=== PATIENT | male | born 2000 | race Caucasian/White ===

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

== ENCOUNTER 2022-02-13 14:44 | Emergency (ER) | payer OTHER ==
--- OUTSIDE RECORDS SUMMARY | 2022-02-13 14:47 | XMS REPORT | Continuity of Care Document ---
:2000 Author Organization [facility] t Address [address] [place] [address] Care Team Providers Name Role Phone Doctor Unassigned, Name Attending Clinician Unavailable Oxana PHD, N Attending Clinician Nixon PATEL Attending Clinician Unavailable TEDDY Attending Clinician Unavailable GEORGE Attending Clinician Unavailable Payers Payer Name Policy Type Policy Number Effective Date Expiration Date S ource Problems Condition Condition Condition Status Onset Resolution Last Treating Co mments Source Name Details Category Date Date Treatment Clinician Date Bipolar 1 Bipolar 1 Disease Active Uni vers disorder, disorder, - ity of mixed mixed 00:00: [place] anxiety-de anxiety-de 00 Me dical pression, pression, Bran ch moderate moderate Anxiety Anxiety Disease Active 2019- Univers 5-29 ity of 00:00: [place] 00 Medical Branch Underweigh Underweigh Disease Active 2017-09 U nivers t in t in 1-20 [place]y of childhood [place] with BMI < with BMI < 00 Me dical 5th 5th Branch percentile percentile Avoidant/r Avoidant/r Disease Active U nivers estrictive estrictive 7-23 it y of food food 00:00: [place] intake intake 00 Medical disorder disorder Branch Avoidant/r Avoidant/r Disease Active U nivers estrictive estrictive 7-23 it y of food food 00:00: [place] intake intake 00 Medical disorder disorder Branch Nicotine Nicotine Disease Active Unive rs abuse abuse 4-15 ity of 00:00: [place] 00 Medical Branch Marijuana Marijuana Disease Active Uni vers abuse, abuse, 4-15 [place] Attention Attention Disease Active 2006- Uni vers deficit deficit 1-19 [place]y of hyperactiv [place] Medical disorder disorder Branch (ADHD) (ADHD) Sensory Sensory Problem Active UT processing processing Ph ysici difficulty difficulty an s Academic/e Academic/e Problem Active U T ducational ducational Ph ysici problem problem ans ZANDER ZANDER Problem Active UT (generaliz (generaliz Ph ysici ed anxiety ed anxiety an s disorder) disorder) Marijuana Marijuana Problem Active UT abuse abuse Physici ans Polysubsta Polysubsta Problem Active U T nce abuse nce abuse Phys ici ans Restless Restless Problem Active UT leg leg Physici syndrome syndrome ans Major Major Problem Active UT depressive depressive Ph ysici disorder disorder ans with with current current active active episode, episode, unspecifie unspecifie d d depression depression episode episode severity, severity, unspecifie unspecifie d whether d whether recurrent recurrent Anxiety Anxiety Problem Active UT disorder, disorder, Phys ici unspecifie unspecifie an s d type d type Allergies, Adverse Reactions, Alerts Allergy Allergy Status Severity Reaction(s) Onset Inactive Treating Comm ents Source Name Type Date Date Clinician NO KNOWN Drug Active Univers ALLERGIE Class ity of S [facility] Social History Social Habit Start Date Stop Date Quantity Comments Source Sex Assigned At [facility] y of [facility] Tobacco use and 2019-08-18 2019-08-18 Never used Universit y of exposure 00:00:00 00:00:00 [facility] Cigarettes smoked 2019-08-18 2019-08-18 Univers ity of current (pack per 00:00:00 00:00:00 [facility] ) - Reported Branch Alcohol intake 2019-08-18 2019-08-18 Current University of 00:00:00 00:00:00 non-drinker of [facility] alcohol Branch (finding) History of tobacco 2018-07-08 Smoker Univer sity of use 00:00:00 [facility] Smoking Status Start Date Stop Date Source Never smoked tobacco [facility] Phys[facility] (finding) Former smoker 2019-08-18 00:00:00 2019-08-18 00:00:00 [facility] Medications Ordered Filled Start Stop Current Ordering Indication Dosage Frequency Signature Comments Components Source Medication Medication Date Date Medication? Clinician (SIG) Name Name SERTraline 2020-0 Yes 100mg Take 100 Un juan 100 mg 1-25 mg by ity of tablet 18:52: mouth [place] 12 daily. Medical Prescribed Branch by [facility] - Apr 2019 SERTraline 2020-0 Yes 100mg Take 100 Un juan 100 mg 1-25 mg by ity of tablet 18:52: mouth [place] 12 daily. Medical Prescribed Branch by [facility] - Apr 2019 SERTraline 2020-0 Yes 100mg Take 100 Un juan 100 mg 1-25 mg by ity of tablet 18:52: mouth [place] 12 daily. Medical Prescribed Branch by [facility] Apr 2019 olanzapine 2020-0 Yes Take by Uni vers (ZYPREXA 1-25 mouth 2 ity of ORAL) 18:52: (two) [place] 09 times Medical daily. Branch Prescribed by [facility] Apr 2019 olanzapine 2020-0 Yes Take by Uni vers (ZYPREXA 1-25 mouth 2 ity of ORAL) 18:52: (two) [place] 09 times Medical daily. Branch Prescribed by [facility] Apr 2019 olanzapine 2020-0 Yes Take by Uni vers (ZYPREXA 1-25 mouth 2 ity of ORAL) 18:52: (two) [place] 09 times Medical daily. Branch Prescribed by [facility] Apr 2019 gabapentin 2020-0 Yes Take by Uni vers 300 mg/6 mL 1-25 mouth 2 ity o f (6 mL) 18:52: (two) [place] solution 07 times Medical daily. Branch prescribed at [facility] no summer 2018 gabapentin 2020-0 Yes Take by Uni vers 300 mg/6 mL 1-25 mouth 2 ity o f (6 mL) 18:52: (two) [place] solution 07 times Medical daily. Branch prescribed at [facility] no summer 2018 gabapentin 2020-0 Yes Take by Uni vers 300 mg/6 mL 1-25 mouth 2 ity o f (6 mL) 18:52: (two) [place] solution 07 times Medical daily. Branch prescribed at [facility] no summer 2018 OXcarbazepi 2020-0 Yes 600mg [...] Medical tablet times Branch daily. Sertraline Sertraline Yes JAZMYN TEDDY Take 25 mg UT HCl - 50 MG HCl - 50 MG 1-23 M.D. po daily x Physici Oral Tablet Oral Tablet 00:00: 15 days ans 00 and then increase it to 50 mg po daily Sertraline Sertraline 2018-09 Yes JAZMYN TEDDY 1 QD TAKE ONE UT HCl - 100 HCl - 100 0-23 M.D. (1) Physi ci MG Oral MG Oral 00:00: TABLET(S) an s Tablet Tablet 00 BY MOUTH ONCE A DAY. OLANZapine OLANZapine 2018-09 Yes JAZMYN TEDDY 1 TAKE 1 UT 10 MG Oral 10 MG Oral 0-23 M.D. TABLET AT Physici Tablet Tablet 00:00: BEDTIME. ans 00 Gabapentin Gabapentin 2018- Yes JAZMYN TEDDY Q0.3333D TAKE 1 UT 300 MG Oral 300 MG Oral 0-23 M.D. CAPSULE 3 Physici Capsule Capsule 00:00: TIMES ans 00 DAILY. OXcarbazepi OXcarbazepi Yes JAZMYN TEDDY Q0.5D TAKE ON E UT ne 300 MG ne 300 MG 9-16 M.D. (1) Physi ci Oral Tablet Oral Tablet 00:00: TABLET(S) ans 00 BY MOUTH TWICE A DAY. busPIRone 2018- Yes [id number] 15mg Take 1 Un juan 15 mg 6-06 tablet by ity of tablet 00:00: mouth 2 [place] 00 (two) Medical times Branch daily. DULoxetine 2018- Yes [id number] 60mg Take 1 U nivers 60 mg 6-04 capsule by ity of capsule 00:00: mouth [place] 00 daily. Medical Branch DULoxetine 2019- Yes [id number] 30mg Take 1 U nivers 30 mg 6-04 capsule by ity of capsule 00:00: mouth [place] 00 daily. Medical Branch OXcarbazepi 2018- Yes 600mg Take 600 U nivers ne 5-29 mg by ity of (TRILEPTAL) 19:48: mouth 2 Sathya as 600 mg 44 (two) Medical tablet times Branch daily. traZODONE Yes [id number] 25mg Take 0.5 Univers 50 mg 5-29 tablets by ity of tablet 00:00: mouth 2 [place] 00 (two) Medical times Branch daily. Multi-Vitam Multi-Vitam Yes M.A. U T in TABS in TABS Physici ans Immunizations Ordered Immunization Filled Immunization Date Status Commen ts Source Name Name Gardasil 9 2018-05-25 Completed [facility] Intramuscular 00:00:00 Suspension Meningococcal, MCV4, 2018-05-25 Completed [facility] unspecified conjugate 00:00:00 formulation(groups A, C, Y and W-135) Boostrix 5-2.5-18.5 2018-05-21 Completed [facility] Intramuscular 00:00:00 Suspension influenza virus 2017-09-03 Completed [facility] ians vaccine, unspecified 00:00:00 formulation influenza virus 2016-07-01 Completed [facility] ians vaccine, unspecified 00:00:00 formulation FluMist Quadrivalent 2015-08-06 Completed [facility] Nasal Suspension 00:00:00 Boostrix 5-2.5-18.5 2014-12-28 Completed [facility] Intramuscular 00:00:00 Suspension Meningococcal, MCV4, 2014-12-28 Completed [facility] unspecified conjugate 00:00:00 formulation(groups A, C, Y and W-135) influenza virus 2014-06-23 Completed [facility] vaccine, unspecified 00:00:00 formulation Gardasil 2014-05-25 Completed [facility] Intramuscular 00:00:00 Suspension Boostrix 5-2.5-18.5 2014-05-25 Completed [facility] Intramuscular 00:00:00 Suspension Meningococcal, MCV4, 2014-05-25 Completed [facility] unspecified conjugate 00:00:00 formulation(groups A, C, Y and W-135) Tdap 2014-05-25 Completed University of 00:00:00 [facility] Meningococcal 2014-05-25 Completed University of Polysaccharide 00:00:00 [place] Medi patrick (groups A, C, Y and Branc h W-135) conjugate vaccine (MCV4P) HPV 2014-05-25 Completed University of 00:00:00 [facility] Branch Tdap 2014-05-25 Completed University of 00:00:00 [facility] Meningococcal 2014-05-25 Completed University of Polysaccharide 00:00:00 [place] Medi patrick (groups A, C, Y and Branc h W-135) conjugate vaccine (MCV4P) HPV 2014-05-25 Completed University of 00:00:00 [facility] Tdap 2014-05-25 Completed University of 00:00:00 [facility] Meningococcal 2014-05-25 Completed University of Polysaccharide 00:00:00 [place] Medi patrick (groups A, C, Y and Branc h W-135) conjugate vaccine (MCV4P) HPV 2014-05-25 Completed University of 00:00:00 [facility] TDAP 2014-05-25 Completed University of 00:00:00 [facility] Meningococcal 2014-05-25 Completed University of Polysaccharide 00:00:00 [place] Medi patrick (groups A, C, Y and Branc h W-135) conjugate vaccine (MCV4P) HPV 2014-05-25 Completed University of 00:00:00 [facility] influenza virus 2009-08-09 Completed [facility] ians vaccine, unspecified 00:00:00 formulation H1n1 Vaccine 2009-08-09 Completed University o f 00:00:00 [facility] Influenza Virus 2009-08-09 Completed Universit y of Vaccine 00:00:00 [facility] H1n1 Vaccine 2009-08-09 Completed University o f 00:00:00 [facility] Influenza Virus 2009-08-09 Completed Universit y of Vaccine 00:00:00 [facility] H1n1 Vaccine 2009-08-09 Completed University o f 00:00:00 [facility] Influenza Virus 2009-08-09 Completed Universit y of Vaccine 00:00:00 [facility] H1n1 Vaccine 2009-08-09 Completed University o f 00:00:00 [facility] Influenza Virus 2009-08-09 Completed Universit y of Vaccine 00:00:00 [facility] influenza virus 2009-07-04 Completed [facility] vaccine, unspecified 00:00:00 formulation Influenza Virus 2009-07-04 Completed Universit y of Vaccine 00:00:00 [facility] Influenza Virus 2009-07-04 Completed Universit y of Vaccine 00:00:00 [facility] Influenza Virus 2009-07-04 Completed Universit y of Vaccine 00:00:00 [facility] Influenza Virus 2009-07-04 Completed Universit y of Vaccine 00:00:00 [facility] hepatitis A vaccine, 2007-11-17 Completed [facility] pediatric/adolescent 00:00:00 dosage, 2 dose schedule Ipol Injection 2007-04-29 Completed [facility] ans Injectable 00:00:00 DTaP, unspecified 2007-04-29 Completed [facility] formulation 00:00:00 ProQuad Subcutaneous 2007-04-29 Completed [facility] Injectable 00:00:00 hepatitis A vaccine, 2007-04-29 Completed [facility] pediatric/adolescent 00:00:00 dosage, 2 dose schedule DTaP, unspecified 2003-11-03 Completed [facility] formulation 00:00:00 Hib, Haemophilus 2003-11-03 Completed [facility] influenzae type b 00:00:00 vaccine, PRP-T conjugate Pneumo (Prevnar 7) 2003-11-03 Completed [facility] 00:00:00 M-M-R II Subcutaneous 2003-11-03 Completed [facility] Injectable 00:00:00 Varivax 1350 2003-11-03 Completed [facility] s PFU/0.5ML 00:00:00 Subcutaneous Injectable Hepatitis B, 2003-07-12 Completed [facility] pediatric/adolescent 00:00:00 dosage Ipol Injection 2003-07-12 Completed [facility] ans Injectable 00:00:00 Pneumo (Prevnar 7) 2003-07-12 Completed [facility] 00:00:00 DTaP, unspecified 2003-04-12 Completed [facility] formulation 00:00:00 Hib, Haemophilus 2003-04-12 Completed [facility] influenzae type b 00:00:00 vaccine, PRP-T conjugate Pneumo (Prevnar 7) 2003-04-12 Completed [facility] 00:00:00 Ipol Injection 2003-02-07 Completed [facility] ans Injectable 00:00:00 DTaP, unspecified 2003-02-07 Completed [facility] formulation 00:00:00 Hib, Haemophilus 2003-02-07 Completed [facility] influenzae type b 00:00:00 vaccine, PRP-T conjugate Hepatitis B, 2002 Completed [facility] pediatric/adolescent 00:00:00 dosage Ipol Injection 2002 Completed [facility] ans Injectable 00:00:00 DTaP, unspecified 2002 Completed [facility] formulation 00:00:00 Hib, Haemophilus 2002 Completed [facility] influenzae type b 00:00:00 vaccine, PRP-T conjugate Pneumo (Prevnar 7) 2002 Completed [facility] 00:00:00 Hepatitis B, 2002 Completed [facility] pediatric/adolescent 00:00:00 dosage Vital Signs Vital Name Observation Time Observation Value Comments Source BP Systolic 2019-10-20 12:54:00 118 mm[Hg] Location: RUE; [facility] Position: Sitting BP Diastolic 2019-10-20 12:54:00 53 mm[Hg] Location: RUE; [facility] Position: Sitting Height 2019-10-20 12:54:00 169 cm [facility] Weight 2019-10-20 12:54:00 125 [lb_av] [facility] Body Mass Index 2019-10-20 12:54:00 19.85 kg/m2 [facility] Calculated Heart Rate 2019-10-20 12:54:00 100 /min [facility] BP Systolic 2019-07-20 13:06:00 93 mm[Hg] Location: LUE; [facility] Position: Sitting BP Diastolic 2019-07-20 13:06:00 58 mm[Hg] Location: LUE; [facility] Position: Sitting Height 2019-07-20 13:06:00 66 [in_us] [facility] Weight 2019-07-20 13:06:00 132.375 [lb_av] [facility] Body Mass Index 2019-07-20 13:06:00 21.37 kg/m2 [facility] Calculated Temperature 2019-07-20 13:06:00 98.5 [degF] Method: Oral [facility] Heart Rate 2019-07-20 13:06:00 79 /min Location: L [facility] Brachial Artery; BP Systolic 2019-02-24 10:04:00 100 mm[Hg] Location: LUE; [place] [facility] Position: Sitting BP Diastolic 2019-02-24 10:04:00 61 mm[Hg] Location: LUE; [place] [facility] Position: Sitting Height 2019-02-24 10:04:00 167.5 cm [facility] Weight 2019-02-24 10:04:00 101 [lb_av] [facility] Body Mass Index 2019-02-24 10:04:00 16.33 kg/m2 [facility] Calculated Temperature 2019-02-24 10:04:00 98.4 [degF] Method: [facility] Tympanic Heart Rate 2019-02-24 10:04:00 62 /min Quality: Normal [facility] Respiration Rate 2019-02-24 10:04:00 18 /min Quality: Normal [facility] O2 SAT 2019-02-24 10:04:00 100 % Source: RA [facility] BP Systolic 2019-02-07 10:53:00 103 mm[Hg] [facility] BP Diastolic 2019-02-07 10:53:00 63 mm[Hg] [facility] Height 2019-02-07 10:53:00 167.5 cm [facility] Weight 2019-02-07 10:53:00 44.8 kg [facility] Body Mass Index 2019-02-07 10:53:00 15.97 kg/m2 [facility] Calculated Heart Rate 2019-02-07 10:53:00 63 /min [facility] Temperature 2019-02-07 10:53:00 98 [degF] [facility] Procedures Procedure Date / Time Performing Clinician Source Performed AUTHORIZATION FOR 2020-08-21 06:01:00 Doctor Unassigned, No [facility] RELEASE OF PHI Name Medical Branch [QLH] CBC (INCLUDES 2019-10-20 00:00:00 [facility] DIFF/PLT) [QL] CMP W/EGFR 2019-10-20 00:00:00 [facility] [QLH] LIPID PANEL 2019-10-20 00:00:00 [facility] ans [QLH] TSH, 3RD 2019-10-20 00:00:00 [facility] GENERATION [QH] DRUG 2019-07-20 00:00:00 [place] [facility] SCREEN,COMPREHENSIVE (URINE) [QH] DRUG 2019-02-24 00:00:00 [place] [facility] SCREEN,COMPREHENSIVE (URINE) Encounters Start End Encounter Admission Attending Care Care Encounter Source Date/Time Date/Time Type Type Clinicians Facility Department ID 2020-08-21 2020-08-21 Orders Doctor BRITTNEE [id number] 00:00:00 00:00:00 Only Unassigned, FRANCA [id number] [facility] [id number] 2020-08-21 2020-08-21 Orders Doctor BRITTNEE [id number] [facility] 00:00:00 00:00:00 Only Unassigned, FRANCA [id number] ity of [facility] [id number] Sathya as [id number] [address] 2019-12-08 2019-12-08 Office [facility] [id number] [facility] 13:05:19 14:05:19 Visit [place] [facility] [id number] ity of [id number] [place] [id number] [address] 2019-12-08 2019-12-08 Office [facility] [id number] 13:05:19 14:05:19 Visit [place] SPECIALTY [id number] [place] [id number] [place] [id number] [facility] 2019-12-08 2019-12-08 Outpatient R [facility] [id number] [facility] 13:15:00 13:15:00 LUDA rojas o f [facility] 2019-10-20 2019-10-20 Appointmen CHAR ESPINAL Multispecia [id number] [place] 13:00:00 13:00:00 t; JAZMYN ESPINAL M.D. lty - P zuleima ELDRIDGE M.D. Pamela ans 2019-07-20 2019-07-20 Appointmen CHAR ESPINAL Psychiatry [id number] [place] 13:00:00 13:00:00 t; JAZMYN ESPINAL M.D. Outpatient Jaye ELDRIDGE M.D. Clinic - ans [facility] 2019-06-08 2019-06-08 Telephone Ox[place] [facility] [id number] [facility] 00:00:00 00:00:00 [place] N SPECIALTY [id number] ity of [place] [id number] Lisa chase [place] [id number] [facility] [address] Branch 2019-02-24 2019-02-24 Appointmen CHAR ESPINAL Pamela [id number] [place] 10:00:00 10:00:00 t; JAZMYN ESPINAL M.D. [facility] zuleima ELDRIDGE M.D. [facility] 2019-02-07 2019-02-07 Appointmen CHAR VAZQUEZ Multispecia [id number] [place] 10:20:00 10:20:00 t; milton FLETCHER - CHANCE Chirinos APRN, APRN Results Test Description Test Time Test Comments [...] Propoxyphene Screen (test Negative Negative code = 34539-7) Urine Drug Screen Note (test code See [...] 300 ng/mLUrin e alcohol 20 mg/ dL [facility][H] Drug Screen Urine (9 Drugs)2019-02-24 13:44:01 [...] Propoxyphene Negative Negative Screen (test code = 10856-0) Urine Drug Screen Note See Note Drugs reported as (test code = Urine Drug posi tive have not been Screen Note) confirmed by a secondmethod an d should be used for medical purpose s only. To orderconfirm ation, contact laboratory.no te: Below are cut-o ff concentrations for all urine drugs marino glover performed in [facility]. Uzair e drugs listed in the t ablemay not be included in this panel.Desc ription C ut-off concentration-- ------- ------- ----Amp hetamine 1000 ng/mLBarbiturat es 200 ng/mLBenzodiaze pines 200 ng/mLCocaine metabolites 300 ng/mLOpiate s 300 ng/mLPhencyclid ine 25 ng/mLPropoxyphe ne 300 ng/mLMarijuana metabolites 50 ng/mLMethado ne 300 ng/mLUrine alco hol 20 mg/dL [facility]
--- NOTE | 2022-02-13 15:05 | EDPHYS ---
Physician Documentation [facility] Name: Chan Gale Age: 21 yrs Sex: Male : 2000 Arrival Date: 02/13/2022 Time: 14:45 Bed 15 Private MD: ED Physician William Espinosa HPI: 02/13 15:02 According to EMS patient was found unresponsive on the side of the road.. jmm Historical: - Allergies: 14:51 No Known Allergies; bp - Home Meds: 14:51 Trileptal Oral [Active]; olanzapine Oral [Active]; gabapentin Oral [Active]; Lexapro bp Oral [Active]; - PMHx: 14:51 Anxiety; Bipolar disorder; Depression; bp - Immunization history:: Adult Immunizations up to date. - Social history:: Smoking status: unknown. ROS: 15:02 Unable to obtain ROS due to patient being uncooperative. jmm Exam: 15:02 Constitutional: This is a well developed, well nourished patient who is awake, alert, jmm and in no acute distress. Head/Face: atraumatic. Eyes: EOMI, no conjunctival erythema appreciated ENT: Moist Mucus Membranes Neck: Trachea midline, Supple Chest/axilla: Normal chest wall appearance and motion. Cardiovascular: Regular rate and rhythm. No edema appreciated Respiratory: Normal respirations, no respiratory distress appreciated Abdomen/GI: Non distended, soft Back: Normal ROM Skin: General appearance color normal MS/ Extremity: Moves all extremities, no obvious deformities appreciated, no edema noted to the lower extremities Neuro: Awake and alert Psych: Behavior is normal, Mood is normal, Patient is cooperative and pleasant Vital Signs: 14:50 BP 111 / 62; Pulse 100; Resp 16; Temp 98; Pulse Ox 99% ; bp MDM: 15:01 Patient medically screened. [facility] 15:02 Data reviewed: vital signs, nurses notes. [facility] 15:02 Counseling: I had a detailed discussion with the patient and/or guardian regarding:. ED jmm course: Patient eloped from the ED prior to full evaluation. 15:04 Patient medically screened. jasmeet Administered Medications: No medications were administered Disposition Summary: 02/13/22 15:05 Eloped Disposition: after being seen by provider ron Reason: unknown jmm Condition: Stable jmm Diagnosis - Person with feared health complaint in whom no diagnosis is made ron Followup: ron - With: Private Physician - When: As needed - Reason: Recheck today's complaints, Continuance of care, Re-evaluation by your physician Signatures: William Espinosa MD MD cha Mickail, Joel, PA PA jmm Peltier, Brian, RN RN bp
--- NOTE | 2022-02-13 15:05 | ER ---
Nurse's Notes [facility] [place] Name: Chan Gale Age: 21 yrs Sex: Male : 2000 Arrival Date: 02/13/2022 Time: 14:45 Bed 15 Private MD: Diagnosis: Person with feared health complaint in whom no diagnosis is made Presentation: 02/13 14:50 Chief complaint: EMS states: FOUND DOWN BY STREET. Coronavirus screen: At this time, bp the client does not indicate any symptoms associated with coronavirus-19. Ebola Screen: No symptoms or risks identified at this time. Initial Sepsis Screen: Does the patient meet any 2 criteria? HR > 90 bpm. No. Patient's initial sepsis screen is negative. Does the patient have a suspected source of infection? No. Patient's initial sepsis screen is negative. Risk Assessment: Do you want to hurt yourself or someone else? Patient reports no desire to harm self or others. Onset of symptoms is unknown. Care prior to arrival: IV initiated. 18 GA, in the right forearm. 14:50 Method Of Arrival: EMS: [facility] bp 14:50 Acuity: SIRISHA 3 bp Triage Assessment: 14:51 General: Appears in no apparent distress. comfortable, Behavior is cooperative, bp appropriate for age, anxious. Pain: Denies pain. EENT: No deficits noted. Neuro: Level of Consciousness is awake, alert, obeys commands, Oriented to Appropriate for age Gait is steady, Speech is normal. Cardiovascular: No deficits noted. Respiratory: No deficits noted. GI: No signs and/or symptoms were reported involving the gastrointestinal system. : No signs and/or symptoms were reported regarding the genitourinary system. Derm: No deficits noted. Musculoskeletal: No deficits noted. Historical: - Allergies: 14:51 No Known Allergies; bp - Home Meds: 14:51 Trileptal Oral [Active]; olanzapine Oral [Active]; gabapentin Oral [Active]; Lexapro bp Oral [Active]; - PMHx: 14:51 Anxiety; Bipolar disorder; Depression; bp - Immunization history:: Adult Immunizations up to date. - Social history:: Smoking status: unknown. Screenin:53 Abuse screen: Denies threats or abuse. Denies injuries from another. Nutritional bp screening: No deficits noted. Tuberculosis screening: No symptoms or risk factors identified. Fall Risk None identified. Assessment: 14:53 General: PT REFUSING MEDICAL CARE. AOx4, AMBULATORY WITH STEADY GAIT. PT ADVISED TO bp REMAIN FOR TREATMENT BUT REFUSED. Vital Signs: 14:50 BP 111 / 62; Pulse 100; Resp 16; Temp 98; Pulse Ox 99% ; bp ED Course: 14:45 Patient arrived in ED. ap3 14:47 Timur Kraus PA [facility] 14:47 William Espinosa MD is Attending Physician. [facility] 14:48 Jamie Santana, RN is Primary Nurse. bp 14:51 Triage completed. bp 14:51 Arm band placed on. bp 14:53 Patient has correct armband on for positive identification. Bed in low position. Call bp light in reach. Side rails up X2. 14:53 No provider procedures requiring assistance completed. IV discontinued. bp Administered Medications: No medications were administered Medication: 14:53 VIS not applicable for this client. bp Outcome: 14:53 AMA Left before signing form. bp 14:53 Condition: stable 15:05 Patient left the ED. ap3 Signatures: Timur Kraus PA PA jmm Peltier, Brian, RN RN bp Mayra Trevino RN RN ap3
[2022-02-13 15:10] VITALS: BP 111/62; TEMP 98; O2SAT 99
== END 2022-02-13 15:05 | disposition left against medical advice (07) ==
LOC: ER 14:44
DX: Z71.1 Person with feared health complaint in whom no diagnosis is made (principal); F31.9 Bipolar disorder, unspecified
CPT/HCPCS: 99282

== ENCOUNTER 2022-06-10 23:26 | Emergency (ER) | payer OTHER ==
--- OUTSIDE RECORDS SUMMARY | 2022-06-10 23:29 | XMS REPORT | Continuity of Care Document ---
:2000 Author Organization [facility] t Address [address] [place] [address] Care Team Providers Name Role Phone Doctor Unassigned, [place] Attending Clinician Unavailable Kim Patel PHD Attending Clinician KIM PATEL Attending Clinician Unavailable JAZMYN ESPINAL M.D. 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 U nivers t in t in -20 [place]y of [place] disorder disorder Branch Nicotine Nicotine Disease Active 2018-0 Unive rs abuse abuse 4-15 ity of 00:00: [address] Marijuana Marijuana Disease Active Uni vers abuse, [...] Active Univers ALLERGIE Class ity of [facility] Social History Social Habit Start Date Stop Date Quantity Comments Source Sex Assigned At Universit y of [facility] Tobacco use and 2019-08-18 2019-08-18 Never used Universit y of exposure 00:00:00 00:00:00 [facility] Cigarettes smoked 2019-08-18 2019-08-18 Univers ity of current (pack per 00:00:00 00:00:00 [facility] ) - Reported Branch Alcohol intake 2019-08-18 2019-08-18 Current University of 00:00:00 00:00:00 non-drinker of [facility] alcohol Branch (finding) History of tobacco 2018-07-08 Smoker Univer sity of use 00:00:00 [facility] Smoking Status Start Date Stop Date Source Never smoked tobacco [facility] (finding) Former smoker 2019-08-18 00:00:00 2019-08-18 00:00:00 [facility] Medical Branch Medications Ordered Filled Start Stop Current Ordering Indication Dosage Frequency Signature Comments Components Source Medication Medication Date Date Medication? Clinician (SIG) Name Name SERTraline 2020-0 Yes 100mg Take 100 Un juan 100 mg 1-25 mg by ity of tablet 18:52: mouth [place] 12 daily. Medical Prescribed Branch by [facility] Apr 2019 SERTraline 2020-0 Yes 100mg Take 100 Un juan 100 mg 1-25 mg by ity of tablet 18:52: mouth [place] 12 daily. Medical Prescribed Branch by [facility] Apr 2019 SERTraline 2020-0 Yes 100mg Take 100 Un juan 100 mg 1-25 mg by ity of tablet 18:52: mouth [place] 12 daily. Medical Prescribed Branch by [facility] Apr 2019 olanzapine 2020-0 Yes Take by [facility] (ZYPREXA 1-25 mouth 2 ity of ORAL) 18:52: (two) [place] 09 times Medical daily. Branch Prescribed by [facility] Apr 2019 olanzapine 2020-0 Yes Take by [facility] (ZYPREXA 1-25 mouth 2 ity of ORAL) 18:52: (two) [place] 09 times Medical daily. Branch Prescribed by [facility] Apr 2019 olanzapine 2020-0 Yes Take by [facility] (ZYPREXA 1-25 mouth 2 ity of ORAL) 18:52: (two) [place] 09 times Medical daily. Branch Prescribed by [facility] Apr 2019 gabapentin 2020-0 Yes Take by [facility] 300 mg/6 mL 1-25 mouth 2 ity o f (6 mL) 18:52: (two) [place] solution 07 times Medical daily. Branch prescribed at [facility] no summer 2018 gabapentin 2020-0 Yes Take by [facility] 300 mg/6 mL 1-25 mouth 2 ity o f (6 mL) 18:52: (two) [place] solution 07 times Medical daily. Branch prescribed at [facility] summer gabapentin 2020-0 Yes Take by [facility] 300 mg/6 mL 1-25 mouth 2 ity o f (6 mL) 18:52: (two) [place] solution 07 times Medical daily. Branch prescribed at [facility] no summer 2018 OXcarbazepi 2020-0 Yes 600mg [...] 00:00: TIMES ans 00 DAILY. OXcarbazepi OXcarbazepi 2018- Yes JAZMYN TEDDY Q0.5D TAKE ON E [place] ne 300 MG ne 300 MG 9-16 M.D. (1) Physi ci Oral Tablet Oral Tablet 00:00: TABLET(S) ans 00 BY MOUTH TWICE A DAY. busPIRone 2018- Yes [id number] 15mg Take 1 Un juan 15 mg 6-06 tablet by ity of tablet 00:00: mouth 2 [place] 00 (two) Medical times Branch daily. DULoxetine Yes [id number] 60mg Take 1 U nivers 60 mg 6-04 capsule by ity of capsule 00:00: mouth [place] 00 daily. Medical Branch DULoxetine 2018- Yes [id number] 30mg Take 1 U nivers 30 mg 6-04 capsule by ity of capsule 00:00: mouth [place] 00 daily. Medical Branch OXcarbazepi 2018- Yes 600mg Take 600 U nivers ne 5-29 mg by ity of (TRILEPTAL) 19:48: mouth 2 Sathya as 600 mg 44 (two) Medical tablet times Branch daily. traZODONE Yes [id number] 25mg Take 0.5 Univers 50 mg 5-29 [...] W-135) Tdap 2014-05-25 Completed University of 00:00:00 [facility] Meningococcal 2014-05-25 Completed University of Polysaccharide 00:00:00 [place] Medi patrick (groups A, C, Y and Branc h W-135) conjugate vaccine (MCV4P) HPV 2014-05-25 Completed University of 00:00:00 [facility] Tdap 2014-05-25 Completed University of 00:00:00 [facility] Meningococcal 2014-05-25 Completed University of Polysaccharide 00:00:00 [place] Medi patrick (groups A, C, Y and Branc h W-135) conjugate vaccine (MCV4P) HPV 2014-05-25 Completed University of 00:00:00 [facility] Tdap 2014-05-25 Completed University of 00:00:00 [facility] Meningococcal 2014-05-25 Completed University of Polysaccharide 00:00:00 [place] Medi patrick (groups A, C, Y and Branc h W-135) conjugate vaccine (MCV4P) HPV 2014-05-25 Completed University of 00:00:00 [facility] TDAP 2014-05-25 Completed University of 00:00:00 [facility] Meningococcal 2014-05-25 Completed University of Polysaccharide 00:00:00 [place] Medi patrick (groups A, C, Y and Branc h W-135) conjugate vaccine (MCV4P) HPV 2014-05-25 Completed University of 00:00:00 [facility] influenza virus 2009-08-09 Completed [facility] vaccine, unspecified 00:00:00 formulation H1n1 Vaccine 2009-08-09 Completed University o f 00:00:00 [facility] Influenza Virus 2009-08-09 Completed Universit y of Vaccine 00:00:00 [facility] H1n1 Vaccine 2009-08-09 Completed University o f 00:00:00 [facility] Influenza Virus 2009-08-09 Completed Universit y of Vaccine 00:00:00 [facility] H1n1 Vaccine 2009-08-09 Completed University o f 00:00:00 [facility] Influenza Virus 2009-08-09 Completed Universit y of Vaccine 00:00:00 [facility] H1n1 Vaccine 2009-08-09 Completed University o f 00:00:00 [facility] Influenza Virus 2009-08-09 Completed Universit y of Vaccine 00:00:00 [facility] influenza virus 2009-07-04 Completed [facility] vaccine, unspecified 00:00:00 formulation Influenza Virus 2009-07-04 Completed Universit y of Vaccine 00:00:00 [facility] Influenza Virus 2009-07-04 Completed Universit y of Vaccine 00:00:00 [facility] Influenza Virus 2009-07-04 Completed Universit y of Vaccine 00:00:00 [facility] Influenza Virus 2009-07-04 Completed Universit y of Vaccine 00:00:00 [facility] hepatitis A vaccine, 2007-11-17 Completed [...] Systolic 2019-10-20 12:54:00 118 mm[Hg] Location: RUE; [facility] Position: Sitting BP Diastolic 2019-10-20 12:54:00 53 mm[Hg] Location: RUE; [facility] Position: Sitting Height 2019-10-20 12:54:00 169 cm [facility] Weight 2019-10-20 12:54:00 125 [lb_av] [facility] Body Mass Index 2019-10-20 12:54:00 19.85 kg/m2 [facility] Calculated Heart Rate 2019-10-20 12:54:00 100 /min [facility] BP Systolic 2019-07-20 13:06:00 93 mm[Hg] Location: LUE; [facility] Position: Sitting BP Diastolic 2019-07-20 13:06:00 58 mm[Hg] Location: LUE; [facility] Position: Sitting Height 2019-07-20 13:06:00 66 [in_us] [facility] Weight 2019-07-20 13:06:00 132.375 [lb_av] [facility] Body Mass Index 2019-07-20 13:06:00 21.37 kg/m2 [facility] Calculated Temperature 2019-07-20 13:06:00 98.5 [degF] Method: Oral [facility] Heart Rate 2019-07-20 13:06:00 79 /min Location: L [facility] Brachial Artery; BP Systolic 2019-02-24 10:04:00 100 mm[Hg] Location: LUE; [facility] Position: Sitting BP Diastolic 2019-02-24 10:04:00 61 mm[Hg] Location: LUE; [facility] Position: Sitting Height 2019-02-24 10:04:00 [...] FOR 2020-08-21 06:01:00 Doctor Unassigned, No Univ [facility] RELEASE OF PHI Name Medical Branch [QL] CBC (INCLUDES 2019-10-20 00:00:00 [facility] DIFF/PLT) [QL] CMP W/EGFR 2019-10-20 00:00:00 [facility]] LIPID PANEL 2019-10-20 00:00:00 [facility]] TSH, 3RD 2019-10-20 00:00:00 [facility] GENERATION [QH] DRUG 2019-07-20 00:00:00 [facility] SCREEN,COMPREHENSIVE (URINE) [Q] DRUG 2019-02-24 00:00:00 [facility] SCREEN,COMPREHENSIVE (URINE) Encounters Start End Encounter Admission Attending Care Care Encounter Source Date/Time Date/Time Type Type Clinicians Facility Department ID 2020-08-21 2020-08-21 Orders Doctor BRITTNEE [id number] 00:00:00 00:00:00 Only Unassigned, FRANCA [id number] Edisto [facility] [id number] 2020-08-21 2020-08-21 Orders Doctor BRITTNEE [id number] [facility] 00:00:00 00:00:00 Only Unassigned, FRANCA [id number] ity of Edisto [facility] [id number] Sathya as [id number] [address] 2019-12-08 2019-12-08 Office [facility] [id number] Univers 13:05:19 14:05:19 Visit [place] [facility] [id number] ity of [place] [id number] [place] [id number] [address] 2019-12-08 2019-12-08 Office [facility] [id number] 13:05:19 14:05:19 Visit [place] N SPECIALTY [id number] [place] [id number] [place] [id number] [facility] 2019-12-08 2019-12-08 [facility] [id number] [facility] 13:15:00 13:15:00 KIM maritns [facility] 2019-10-20 2019-10-20 Appointmen CHAR ESPINAL [facility] [id number] [place] 13:00:00 13:00:00 t; JAZMYN ESPINAL M.D. lty - P Sarah Chakrabortya ans 2019-07-20 2019-07-20 Appointmen CHAR ESPINAL Psychiatry [id number] [place] 13:00:00 13:00:00 t; JAZMYN ESPINAL M.D. Outpatient Jaye ELDRIDGE M.D. [facility] - ans [facility] 2019-06-08 2019-06-08 Telephone Oxana [facility] [id number] [facility] 00:00:00 00:00:00 Kim N SPECIALTY [id number] ity [facility] [id number] Lisa chase [place] [id number] [facility] 151 Branch 2019-02-24 2019-02-[facility] ESPINALa [id number] [place] 10:00:00 10:00:00 t; JAZMYN ESPINAL M.D. [facility] P zuleima ELDRIDGE M.D. [facility] 2019-02-07 2019-02-07 [facility] CHAR VAZQUEZ [facility] [id number] [place] 10:20:00 10:20:00 t; milton FLETCHER - CHANCE [...] Propoxyphene Screen (test Negative Negative code = 80714-2) Urine Drug Screen Note (test code See Note Drugs reported as positive have = Urine Drug Screen Note) no t been confirmed by a secondmethod an d should be used for medical pur poses only. To orderconfirmati on, contact laboratory.no te: Below are cut-off concent rations for all urine drugs ofa buse performed in the laboratory. Some drugs listed in the t ableksy not be included in thi s panel.Descripti on Cut-off concentration-- A mphetamine 100 0 ng/mLBarbiturat es 200 ng/mLBenzodiaze pines 200 ng/mLCocaine me tabolites 300 ng/mLOpiates 30 0 ng/mLPhencyclid ine 25 ng/mLPropoxyphe ne 300 ng/mLMarijuana metabolites 50 ng/mLMethadone 300 ng/mLUrine alcohol 20 mg/d L [facility][H] Drug Screen Urine (9 Drugs)2019-02-24 13:44:01 [...] Propoxyphene Negative Negative Screen (test code = 64140-0) Urine Drug Screen Note See Note Drugs reported as (test code = Urine Drug posi tive have not been Screen Note) confirmed by a secondmethod an d should be used for medical purpose s only. [facility], contact laboratory.no te: Below are cut-o ff concentrations for all urine drugs ofa buse [facility]. Uzair e drugs listed in the ableksy not be included in this panel.Desc ription Cut-off concentration-- ------- ------- ----Amp hetamine 1000 ng/mLBarbiturat es 200 ng/mLBenzodiaze pines 200 ng/mLCocain e metabolites 300 ng/mLOpiates 3 00 ng/mLPhencyclid ine 25 ng/mLPropoxyphe ne 300 ng/mLMarijuana metabolites 50 ng/mLMethadone 300 ng/mLUrine alco hol 20 mg/dL [facility]
[2022-06-11 00:12] LABS: Absolute Lymphocytes (CBC) 2.5 K/uL (0.7-4.9); Hematocrit 38.3 % (39.6-49.0); Lymphocytes % 45.8 % (15.3-44.8); MCV 86.7 fL (80-100); RBC Red Blood Cell Count 4.41 M/uL (4.33-5.43)
[2022-06-11 00:15] LABS: Protime INR 1.15
[2022-06-11 00:28] LABS: ALT/SGPT 29 U/L (12-78); AST/SGOT 17 U/L (15-37); Albumin 4.2 g/dL (3.4-5.0); Alkaline Phosphatase 105 U/L (45-117); BUN Blood Urea Nitrogen 5 mg/dL (7-18); Bicarbonate 26 mmol/L (21-32); Bilirubin Direct 0.2 mg/dL (0-0.2); Bilirubin Total 0.6 mg/dL (0.2-1.0); Creatine Phosphokinase 168 U/L (39-308); Glomerular Filtration Rate 109 ml/min (=/>90); Glucose Level 123 mg/dL (74-106); Potassium 3.5 mmol/L (3.5-5.1); Protein, Total 7.3 g/dL (6.4-8.2); Sodium Level 140 mmol/L (136-145)
--- NOTE | 2022-06-11 05:59 | EDPHYS ---
Physician Documentation [facility] Name: Chan Gale Age: 21 yrs Sex: Male : 2000 Arrival Date: 06/10/2022 Time: 23:30 Bed 6 Private MD: ED Physician Donta Alcantara HPI: 06/11 22:16 This 21 yrs old Male presents to ER via EMS with complaints of Drug Abuse. kdr 22:16 The patient presents with confusion, decreased mental status, decreased responsiveness, kdr disorientation, trouble concentrating. Onset: The symptoms/episode began/occurred gradually, today. Possible causes: The patient allegedly snorted an unknown number of gabapentin earlier today. It is unknown if he had any other ingestion. Associated signs and symptoms: The patient has no apparent associated signs or symptoms. Current symptoms: In the emergency department the patient's symptoms are unchanged from the initial presentation. Patient's baseline: Neuro: alert and fully oriented, Motor: no deficits. The patient has not experienced similar symptoms in the past. The patient has not recently seen a physician. Patient states that he was having a lot of discomfort in that he took some extra pills but he denies snorting any medications or drugs of any sort.. 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 - Social history:: Smoking status: Reported history of juuling and/or vaping. Patient/guardian denies using alcohol. ROS: 06/11 22:16 Constitutional: Negative for fever, chills, and weight loss, Eyes: Negative for injury, kdr pain, redness, and discharge, ENT: Negative for injury, pain, and discharge, Neck: Negative for injury, pain, and swelling, Cardiovascular: Negative for chest pain, palpitations, and edema, Respiratory: Negative for shortness of breath, cough, wheezing, and pleuritic chest pain, Abdomen/GI: Negative for abdominal pain, nausea, vomiting, diarrhea, and constipation, Back: Negative for injury and pain, : Negative for injury, bleeding, discharge, and swelling, MS/Extremity: Negative for injury and deformity, Skin: Negative for injury, rash, and discoloration, Allergy/Immunology: Negative for hives, rash, and allergies, Endocrine: Negative for neck swelling, polydipsia, polyuria, polyphagia, and marked weight changes, Hematologic/Lymphatic: Negative for swollen nodes, abnormal bleeding, and unusual bruising. Neuro: Positive for altered mental status, weakness, Negative for Psych: Positive for Negative for suicide gesture, suicidal ideation. Exam: 22:16 Constitutional: This is a well developed, well nourished patient who is awake, alert, kdr and in no acute distress. Head/Face: Normocephalic, atraumatic. Eyes: Pupils equal round and reactive to light, extra-ocular motions intact. Lids and lashes normal. Conjunctiva and sclera are non-icteric and not injected. Cornea within normal limits. Periorbital areas with no swelling, redness, or edema. Neck: Trachea midline, no thyromegaly or masses palpated, and no cervical lymphadenopathy. Supple, full range of motion without nuchal rigidity, or vertebral point tenderness. No Meningismus. Chest/axilla: Normal chest wall appearance and motion. Nontender with no deformity. No lesions are appreciated. Cardiovascular: Regular rate and rhythm with a normal S1 and S2. No gallops, murmurs, or rubs. Normal PMI, no JVD. No pulse deficits. Respiratory: Lungs have equal breath sounds bilaterally, clear to auscultation and percussion. No rales, rhonchi or wheezes noted. No increased work of breathing, no retractions or nasal flaring. Abdomen/GI: Soft, non-tender, with normal bowel sounds. No distension or tympany. No guarding or rebound. No evidence of tenderness throughout. Back: No spinal tenderness. No costovertebral tenderness. Full range of motion. Skin: Warm, dry with normal turgor. Normal color with no rashes, no lesions, and no evidence of cellulitis. MS/ Extremity: Pulses equal, no cyanosis. Neurovascular intact. Full, normal range of motion. 22:16 Neuro: Orientation: to person, place, Mentation: slow to respond, confused. Vital Signs: 06/10 23:30 BP 126 / 90; Pulse 73; Resp 17; Temp 97.6(O); Pulse Ox 98% on R/A; Weight 58.97 kg; ld1 Height 5 ft. 5 in. (165.10 cm); Pain 0/10; 06/11 01:30 BP 107 / 71; Pulse 71; Resp 15; Pulse Ox 100% on R/A; ll3 02:30 BP 128 / 88; Pulse 71; Resp 15; Pulse Ox 98% on R/A; ll3 03:15 BP 134 / 95; Pulse 56; Resp 14; Pulse Ox 96% on R/A; ll3 04:35 BP 122 / 87; Pulse 67; Pulse Ox 99% on R/A; aa9 05:15 BP 116 / 82; Pulse 51; Resp 15; Pulse Ox 96% on R/A; ll3 06/10 23:30 Body Mass Index 21.63 (58.97 kg, 165.10 cm) ld1 MDM: 05:59 Patient medically screened. kdr 22:16 Data reviewed: vital signs, nurses notes, lab test result(s). Counseling: I had a kdr detailed discussion with the patient and/or guardian regarding: the historical points, exam findings, and any diagnostic results supporting the discharge/admit diagnosis, lab results, the need for outpatient follow up. 06/10 23:44 Order name: Acetaminophen; Complete Time: 02:06/10 23:44 Order name: Basic Metabolic Panel; Complete Time: 02:06/10 23:44 Order name: CBC with Diff; Complete Time: 02:06/10 23:44 Order name: ETOH Level; Complete Time: 02:06/10 23:44 Order name: Hepatic Function; Complete Time: 02:06/10 23:44 Order name: PT-INR; Complete Time: 02:06/10 23:44 Order name: Ptt, Activated; Complete Time: 02:06/10 23:44 Order name: Salicylate; Complete Time: 02: 06/10 23:44 Order name: EKG; Complete Time: 23:46 06/10 23:44 Order name: EKG - Nurse/Tech; Complete Time: 23:48 06/10 23:44 Order name: IV Saline Lock; Complete Time: 23:54 06/10 23:44 Order name: Labs collected and sent; Complete Time: 23:54 3 06/10 23:44 Order name: CK; Complete Time: 02:11 3 06/10 23:44 Order name: Suicide Screening ([place]); Complete Time: 23:59 eh3 Administered Medications: No medications were administered Disposition Summary: 06/11/22 05:59 Discharge Ordered Location: Home kdr Problem: new kdr Symptoms: have improved kdr Condition: Stable kdr Diagnosis - Other psychoactive substance abuse kdr Followup: kdr - With: Private Physician - When: 2 - 3 days - Reason: If symptoms return, Further diagnostic work-up, Recheck today's complaints, Continuance of care, Re-evaluation by your physician Discharge Instructions: - Confusion kdr - Accidental Drug Poisoning, Adult kdr - Discharge Summary Sheet aa9 - Weakness kdr Forms: - Medication Reconciliation Form kdr - SBAR form aa9 - Thank You Letter kdr Signatures: Dispatcher [employer] EDDonta Chicas MD MD kdr Ngozi Hull RN RN 1 Mckayla Edmond RN RN 3 Corrections: (The following items were deleted from the chart) 06:07 06/10 23:44 Urine Dipstick-Ancillary ordered. 3 3
--- NOTE | 2022-06-11 05:59 | ER ---
Nurse's Notes [facility] Name: Chan Gale Age: 21 yrs Sex: Male : 2000 Arrival Date: 06/10/2022 Time: 23:30 Bed 6 Private MD: Diagnosis: Other psychoactive substance abuse Presentation: 06/10 23:30 Chief complaint: EMS states: toned out to pt home where pt was found in grass. Pt ld1 reports snorting 7-10 gabapentin (unknown). Pt prescribed 400mg capsules. Pt reports snapping them open and snorting them throughout day. Denies SI. Coronavirus screen: At this time, the client does not indicate any symptoms associated with coronavirus-19. Ebola Screen: No symptoms or risks identified at this time. Initial Sepsis Screen: Does the patient meet any 2 criteria? No. Patient's initial sepsis screen is negative. Does the patient have a suspected source of infection? No. Patient's initial sepsis screen is negative. Risk Assessment: Do you want to hurt yourself or someone else? Patient reports no desire to harm self or others. Onset of symptoms was June 10, 2022. 23:30 Method Of Arrival: EMS: [facility] ld1 23:30 Acuity: SIRISHA 3 ld1 Triage Assessment: 23:34 General: Appears in no apparent distress. comfortable, Behavior is calm, cooperative, ld1 drowsy. Pain: Denies pain. EENT: No signs and/or symptoms were reported regarding the EENT system. Neuro: Level of Consciousness is awake, alert, obeys commands, Oriented to person, place, time, situation. Cardiovascular: Capillary refill < 3 seconds Patient's skin is warm and dry. Rhythm is sinus rhythm. Respiratory: Airway is patent Respiratory effort is even, unlabored. GI: Abdomen is flat, non-distended. : No signs and/or symptoms were reported regarding the genitourinary system. Derm: No signs and/or symptoms reported regarding the dermatologic system. Musculoskeletal: No signs and/or symptoms reported regarding the musculoskeletal system. Historical: - Allergies: 23:34 No Known Allergies; ld1 - PMHx: 23:34 Anxiety; Bipolar disorder; Depression; ld1 23:34 avoident restrictive food intact disorder; ld1 - PSHx: 23:34 None; ld1 - Immunization history:: Adult Immunizations up to date, Client reports receiving the 2nd dose of the Covid vaccine. - Social history:: Smoking status: Reported history of juuling and/or vaping. Patient/guardian denies using alcohol. Screenin/14 05:58 Abuse screen: Denies threats or abuse. Denies injuries from another. Nutritional ll3 screening: No deficits noted. Tuberculosis screening: No symptoms or risk factors identified. Fall Risk None identified. Assessment: 06/10 23:42 Reassessment: Poison Control case # [id number]. Expect ataxia, sedation. Observe for a eh3 minimum of 6 hours. Intubate if needed and let him sleep it off. 06/11 03:24 Reassessment: No changes from previously documented assessment. Patient and/or family ll3 updated on plan of care and expected duration. Pain level reassessed. Pt is in bed sleeping with eyes closed, respirations are even and unlabored, chest rising and falling, no s/s of distress, call light within reach, mom at bedside. 04:34 Reassessment: Patient and/or family updated on plan of care and expected duration. Pain aa9 level reassessed. pt in bed, eyes closed, respirations even and unlabored, no s/s of distress, call light within reach, mom at bedside. 05:43 Reassessment: No changes from previously documented assessment. Patient and/or family as6 updated on plan of care and expected duration. Pain level reassessed. 05:59 Reassessment: Dr. Alcantara at bedside. ll3 Vital Signs: 06/10 23:30 BP 126 / 90; Pulse 73; Resp 17; Temp 97.6(O); Pulse Ox 98% on R/A; Weight 58.97 kg; ld1 Height 5 ft. 5 in. (165.10 cm); Pain 0/10; 06/11 01:30 BP 107 / 71; Pulse 71; Resp 15; Pulse Ox 100% on R/A; ll3 02:30 BP 128 / 88; Pulse 71; Resp 15; Pulse Ox 98% on R/A; ll3 03:15 BP 134 / 95; Pulse 56; Resp 14; Pulse Ox 96% on R/A; ll3 04:35 BP 122 / 87; Pulse 67; Pulse Ox 99% on R/A; aa9 05:15 BP 116 / 82; Pulse 51; Resp 15; Pulse Ox 96% on R/A; ll3 06/10 23:30 Body Mass Index 21.63 (58.97 kg, 165.10 cm) ld1 ED Course: 06/10 23:30 Patient arrived in ED. ld1 23:34 Triage completed. ld1 23:34 Arm band placed on right wrist. ld1 23:36 Mckayla Edmond, RN is Primary Nurse. 3 23:49 Donta Alcantara MD is Attending Physician. kdr 23:54 Inserted saline lock: 20 gauge in right antecubital area, using aseptic technique. Blood collected. 23:54 CBC with Diff Sent. zm 23:54 ETOH Level Sent. zm 23:54 Hepatic Function Sent. 23:54 PT-INR Sent. zm 23:54 Ptt, Activated Sent. zm 23:54 Salicylate Sent. zm 23:54 Basic Metabolic Panel Sent. zm 23:54 Acetaminophen Sent. 23:54 CK Sent. 06/11 05:58 Patient has correct armband on for positive identification. Bed in low position. Call ll3 light in reach. Side rails up X 1. Adult w/ patient. 05:58 No provider procedures requiring assistance completed. ll3 06:06 IV discontinued, intact, bleeding controlled, No redness/swelling at site. Pressure ll3 dressing applied. Administered Medications: No medications were administered Medication: 05:58 VIS not applicable for this client. ll3 Outcome: 05:59 Discharge ordered by . kdr 06:06 Discharged to home ambulatory, with family. ll3 06:06 Condition: stable 06:06 Discharge instructions given to patient, family, Instructed on discharge instructions, follow up and referral plans. Demonstrated understanding of instructions, follow-up care. 06:07 Patient left the ED. ll3 Signatures: Donta Alcantara MD MD [facility] Ngozi Hull RN RN ld1 Terence Santiago, JASON RN as6 Enrike Curtis RN RN 3 Mckayla Edmond, JASON GOMEZ 3 Lillie Cordova Reyna Chapman, JASON GOMEZ aa9
--- NOTE | 2022-06-11 17:08 | EKG ---
Test Date: 2022-06-10 Test Time: 23:41:40 Chemical Sales Representative: SANA MEASUREMENT RESULTS: Intervals: Rate: 67 MT: 148 QRSD: 108 QT: 416 QTc: 439 Comfort: P: 50 MT: 148 QRS: 97 T: 24 INTERPRETIVE STATEMENTS: Normal sinus rhythm Rightward axis Incomplete right bundle branch block Cannot rule out Inferior infarct, age undetermined Abnormal ECG Compared to ECG 04/15/2021 09:37:55 Right-axis deviation now present Incomplete right bundle-branch block now present Myocardial infarct finding now present Left-axis deviation no longer present Electronically Signed On 06-11-22 17:06:36 CDT by Nilesh Lara
[2022-06-11 20:11] VITALS: TEMP 97.6
[2022-06-11 20:46] VITALS: BP 116/82; O2SAT 96
== END 2022-06-11 06:07 | disposition home or self-care (01) ==
LOC: ER 23:26
DX: R41.82 Altered mental status, unspecified (principal); F19.10 Other psychoactive substance abuse, uncomplicated; R53.1 Weakness
CPT/HCPCS: 36415; 80048; 80076; 80320; 80329; 82550; 85025; 85610; 85730; 93005

== ENCOUNTER 2022-08-30 18:01 | Emergency (ER) | payer OTHER ==
[2022-08-30] MEDS ORDERED: NA CHLORIDE 0.9% 2,000 ML ONE (18:05)
--- OUTSIDE RECORDS SUMMARY | 2022-08-30 18:05 | XMS REPORT | Continuity of Care Document ---
:2000 Author Organization [facility] t Address [address] [place] [address] Care Team Providers Name Role Phone Doctor Unassigned, [place] Attending Clinician Unavailable Kim Patel PHD Attending [...] 1 Disease Active Uni vers disorder, disorder, 02-23 ity of mixed mixed 00:00: [place] anxiety-de anxiety-de 00 Me dical pression, pression, Bran ch moderate moderate Anxiety Anxiety Disease Active Univers - ity of 00:00: [place] 00 [...] rs abuse abuse 4-15 ity of 00:00: [address] Marijuana Marijuana Disease Active Uni vers [...] Active Univers ALLERGIE Class ity of S [facility] Social History Social Habit Start Date Stop Date Quantity Comments Source Sex Assigned At Universit y of [facility] Tobacco use and 2019-08-18 2019-08-18 Never used Universit y of exposure 00:00:00 00:00:00 [facility] Cigarettes smoked 2019-08-18 2019-08-18 Univers ity of current (pack per 00:00:00 00:00:00 [facility] ) - Reported Branch Alcohol intake 2019-08-18 2019-08-18 Current University of 00:00:00 00:00:00 non-drinker of [facility] alcohol Branch (finding) History of tobacco 2018-07-08 Smoker Univer sity of use 00:00:00 [facility] Smoking Status Start Date Stop Date Source Never smoked tobacco [facility] (finding) Former smoker 2019-08-18 00:00:00 2019-08-18 00:00:00 [facility] Medical Branch Medications Ordered Filled Start Stop Current Ordering Indication Dosage Frequency Signature Comments Components Source Medication Medication Date Date Medication? Clinician (SIG) Name Name SERTraline 2020-0 Yes 100mg Take 100 Un juan 100 mg 1-25 mg by ity of tablet 18:52: mouth [place] 12 daily. Medical Prescribed Branch by [facility] Apr 2019 SERTraline 2020-0 Yes 100mg Take 100 Un juan 100 mg 1-25 mg by ity of tablet 18:52: mouth [place] 12 daily. Medical Prescribed Branch by [facility] Apr 2019 SERTraline 2020-0 Yes 100mg Take 100 Un juan 100 mg 1-25 mg by ity of tablet 18:52: mouth [place] 12 daily. Medical Prescribed Branch by [facility] Apr 2019 olanzapine 2020-0 Yes Take by SocialF5 ers (ZYPREXA 1-25 mouth 2 ity of ORAL) 18:52: (two) [place] 09 times Medical daily. Branch Prescribed by [facility] Apr 2019 olanzapine 2020-0 Yes Take by SocialF5 ers (ZYPREXA 1-25 mouth 2 ity of ORAL) 18:52: (two) [place] 09 times Medical daily. Branch Prescribed by [facility] Apr 2019 olanzapine 2020-0 Yes Take by SocialF5 ers (ZYPREXA 1-25 mouth 2 ity of ORAL) 18:52: (two) [place] 09 times Medical daily. Branch Prescribed by [facility] Apr 2019 gabapentin 2020-0 Yes Take by SocialF5 ers 300 mg/6 mL 1-25 mouth 2 ity o f (6 mL) 18:52: (two) [place] solution 07 times Medical daily. Branch prescribed at [facility] no summer 2018 gabapentin 2020-0 Yes Take by SocialF5 ers 300 mg/6 mL 1-25 mouth 2 ity o f (6 mL) 18:52: (two) [place] solution 07 times Medical daily. Branch prescribed at [facility] summer gabapentin 2020-0 Yes Take by SocialF5 ers 300 mg/6 mL 1-25 mouth 2 ity o f (6 mL) 18:52: (two) [place] solution 07 times Medical daily. Branch prescribed at [facility] [place] no summer 2018 OXcarbazepi 2020-0 Yes 600mg [...] MOUTH TWICE A DAY. busPIRone 2018- Yes [id number] 15mg Take 1 Un juan 15 mg 6-06 tablet by ity of tablet 00:00: mouth 2 [place] 00 (two) Medical times Branch daily. DULoxetine Yes [id number] 60mg Take 1 U nivers 60 mg 6-04 capsule by ity of capsule 00:00: mouth [place] 00 daily. Medical Branch DULoxetine 2018- Yes [id number] 30mg Take 1 U nivers 30 mg 6-04 capsule by ity of capsule 00:00: mouth [place] 00 daily. Medical Branch OXcarbazepi 2018- Yes 600mg Take 600 U nivers ne 5-29 mg by ity of (TRILEPTAL) 19:48: mouth 2 Sathya as 600 mg 44 (two) Medical tablet times Branch daily. traZODONE Yes [id number] 25mg Take 0.5 Univers 50 mg 5-29 [...] W-135) Tdap 2014-05-25 Completed University of 00:00:00 [facility] Meningococcal 2014-05-25 Completed University of Polysaccharide 00:00:00 [place] Medi patrick (groups A, C, Y and Branc h W-135) conjugate vaccine (MCV4P) HPV 2014-05-25 Completed University of 00:00:00 [facility] Tdap 2014-05-25 Completed University of 00:00:00 [facility] Meningococcal 2014-05-25 Completed University of Polysaccharide 00:00:00 [place] Medi patrick (groups A, C, Y and Branc h W-135) conjugate vaccine (MCV4P) HPV 2014-05-25 Completed University of 00:00:00 [facility] Tdap 2014-05-25 Completed University of 00:00:00 [facility] Meningococcal 2014-05-25 Completed University of Polysaccharide 00:00:00 [place] Medi patrick (groups A, C, Y and Branc h W-135) conjugate vaccine (MCV4P) HPV 2014-05-25 Completed University of 00:00:00 [facility] TDAP 2014-05-25 Completed University of 00:00:00 [facility] Meningococcal 2014-05-25 Completed University of Polysaccharide 00:00:00 [place] Med[facility] patrick (groups A, C, Y and Branc h W-135) conjugate vaccine (MCV4P) HPV 2014-05-25 Completed University of 00:00:00 [facility] influenza virus 2009-08-09 Completed [facility] vaccine, unspecified 00:00:00 formulation H1n1 Vaccine 2009-08-09 Completed University o f 00:00:00 [facility] Influenza Virus 2009-08-09 Completed Universit y of Vaccine 00:00:00 [facility] H1n1 Vaccine 2009-08-09 Completed University o f 00:00:00 [facility] Influenza Virus 2009-08-09 Completed Universit y of Vaccine 00:00:00 [facility] H1n1 Vaccine 2009-08-09 Completed University o f 00:00:00 [facility] Influenza Virus 2009-08-09 Completed Universit y of Vaccine 00:00:00 [facility] H1n1 Vaccine 2009-08-09 Completed University o f 00:00:00 [facility] Influenza Virus 2009-08-09 Completed Universit y of Vaccine 00:00:00 [facility] influenza virus 2009-07-04 Completed [facility] vaccine, unspecified 00:00:00 formulation Influenza Virus 2009-07-04 Completed Universit y of Vaccine 00:00:00 [facility] Influenza Virus 2009-07-04 Completed Universit y of Vaccine 00:00:00 [facility] Influenza Virus 2009-07-04 Completed Universit y of Vaccine 00:00:00 [facility] Influenza Virus 2009-07-04 Completed Universit y of Vaccine 00:00:00 [facility] hepatitis A vaccine, 2007-11-17 Completed [facility] [...] Systolic 2019-10-20 12:54:00 118 mm[Hg] Location: RUE; [facility] Position: Sitting BP Diastolic 2019-10-20 12:54:00 53 mm[Hg] Location: RUE; [facility] Position: Sitting Height 2019-10-20 12:54:00 169 cm [facility] Weight 2019-10-20 12:54:00 125 [lb_av] [facility] Body Mass Index 2019-10-20 12:54:00 19.85 kg/m2 [facility] Calculated Heart Rate 2019-10-20 12:54:00 100 /min [facility] BP Systolic 2019-07-20 13:06:00 93 mm[Hg] Location: LUE; [facility] Position: Sitting BP Diastolic 2019-07-20 13:06:00 58 mm[Hg] Location: LUE; [facility] Position: Sitting Height 2019-07-20 13:06:00 66 [in_us] [facility] Weight 2019-07-20 13:06:00 132.375 [lb_av] [facility] Body Mass Index 2019-07-20 13:06:00 21.37 kg/m2 [facility] Calculated Temperature 2019-07-20 13:06:00 98.5 [degF] Method: Oral [facility] Heart Rate 2019-07-20 13:06:00 79 /min Location: L [facility] Brachial Artery; BP Systolic 2019-02-24 10:04:00 100 mm[Hg] Location: LUE; [facility] Position: Sitting BP Diastolic 2019-02-24 10:04:00 61 mm[Hg] Location: LUE; [facility] Position: Sitting Height 2019-02-24 10:04:00 [...] FOR 2020-08-21 06:01:00 Doctor Unassigned, No Univ [facility] RELEASE OF PHI Name Medical Branch [QL] CBC (INCLUDES 2019-10-20 00:00:00 [facility] DIFF/PLT) [QL] CMP W/EGFR 2019-10-20 00:00:00 [facility]] LIPID PANEL 2019-10-20 00:00:00 [facility]] TSH, 3RD 2019-10-20 00:00:00 [facility] GENERATION [QH] DRUG 2019-07-20 00:00:00 [facility] SCREEN,COMPREHENSIVE (URINE) [Q] DRUG 2019-02-24 00:00:00 [facility] SCREEN,COMPREHENSIVE (URINE) Encounters Start End Encounter Admission Attending Care Care Encounter Source Date/Time Date/Time Type Type Clinicians Facility Department ID 2020-08-21 2020-08-21 Orders Doctor BRITTNEE [id number] 00:00:00 00:00:00 Only Unassigned, FRANCA [id number] [place] [facility] [id number] 2020-08-21 2020-08-21 Orders Doctor BRITTNEE [id number] [facility] 00:00:00 00:00:00 Only Unassigned, FRANCA [id number] ity of [place] [facility] [id number] Sathya as [id number] [address] 2019-12-08 2019-12-08 Office [facility] [id number] Univers 13:05:19 14:05:19 Visit [place] [facility] [id number] ity of [id number] [id number] [address] 2019-12-08 2019-12-08 Office [facility] [id number] 13:05:19 14:05:19 Visit [place] SPECIALTY [id number] [place] [id number] [place] [id number] [facility] 2019-12-08 2019-12-08 [facility] [id number] [facility] 13:15:00 13:15:00 KIM martins [facility] 2019-10-20 2019-10-[address] [facility] [id number] [place] 13:00:00 13:00:00 t; JAZMYN ESPINAL M.D. lty - P Sarah Chakrabortya ans 2019-07-20 2019-07-20 Appointmen CHAR ESPINAL Psychiatry [id number] [place] 13:00:00 13:00:00 t; JAZMYN ESPINAL M.D. Outpatient Jaye ELDRIDGE M.D. [facility] - ans [facility] 2019-06-08 2019-06-08 Telephone Oxana [facility] [id number] [facility] 00:00:00 00:00:00 Kim N SPECIALTY [id number] ity [facility] [id number] Lisa chase [place] [id number] [facility] 151 Branch 2019-02-24 2019-[facility] ESPINALa [id number] [place] 10:00:00 10:00:00 t; JAZMYN ESPINAL M.D. [facility] P zuleima ELDRIDGE M.D. [facility] 2019-02-07 2019-02-[facility] CHAR VAZQUEZ Multispecia [id number] [place] 10:20:00 10:20:00 t; milton FLETCHER - [...] Propoxyphene Screen (test Negative Negative code = 99708-7) Urine Drug Screen Note (test code See Note Drugs reported as positive have = Urine Drug Screen Note) no t been confirmed by a secondmethod an d should be used for medical pur poses only. To orderconfirmati on, contact laboratory.no te: Below are cut-off concent rations for all urine drugs ofa buse performed in the laboratory. Some drugs listed in the t ablemty not be included in thi s panel.Descripti on Cut-off concentration-- A mphetamine 100 0 ng/mLBarbiturat es 200 ng/mLBenzodiaze pines 200 ng/mLCocaine me tabolites 300 ng/mLOpiates 30 0 ng/mLPhencyclid ine 25 ng/mLPropoxyphe ne 300 ng/mLMarijuana metabolites 50 ng/mLMethadone 300 ng/mLUrine alcohol 20 mg/d L [facility][H] Drug Screen Urine (9 Drugs)2019-02-24 13:44:01 [...] Propoxyphene Negative Negative Screen (test code = 19684-0) Urine Drug Screen Note See Note Drugs reported as (test code = Urine Drug posi tive have not been Screen Note) confirmed by a secondmethod an d should be used for medical purpose s only. [facility], contact laboratory.no te: Below are cut-o ff concentrations for all urine drugs ofa buse performed in [facility]. Uzair e drugs listed in the ablemty not be included in this panel.Desc ription Cut-off concentration-- ------- ------- ----Amp hetamine 1000 ng/mLBarbiturat es 200 ng/mLBenzodiaze pines 200 ng/mLCocain e metabolites 300 ng/mLOpiates 3 00 ng/mLPhencyclid ine 25 ng/mLPropoxyphe ne 300 ng/mLMarijuana metabolites 50 ng/mLMethadone 300 ng/mLUrine alco hol 20 mg/dL [facility]
[2022-08-30] MEDS ORDERED: DIPHENHYDRAMINE 50 MG/ML VIAL ONE (18:15)
[2022-08-30] MEDS ORDERED: FAMOTIDINE 20 MG/2 ML VIAL IV ONE (18:15)
[2022-08-30] MEDS ORDERED: HYDROCORTISONE SUC 100 MG INJ ONE (18:15)
[2022-08-30 18:24] LABS: Urine Blood Negative (Negative); Urine Glucose Negative (Negative); Urine Protein Negative (Negative)
[2022-08-30 18:27] LABS: Arterial Blood Carboxyhemoglob 0.3 % (0-1.5); Blood O2 Saturation 99.3 % (92-98.5)
[2022-08-30] MEDS ORDERED: MULTIVITAMINS 10 ML VIAL (INJ) IV ONE (18:27)
[2022-08-30] MEDS ORDERED: THIAMINE 200 MG/2 ML INJ ONE (18:27)
[2022-08-30] MEDS ORDERED: NA CHLORIDE 0.9% 1,000 ML ONE (18:28)
[2022-08-30] MEDS ORDERED: FOLIC ACID 5 MG/ML VIAL ONE (18:28)
[2022-08-30] MEDS ORDERED: NA CHLORIDE 0.9% 100 ML IV ONE (18:28)
[2022-08-30] MEDS ORDERED: PIPERACIL/TAZO 3.375 GM VIAL IV ONE (18:29)
[2022-08-30 18:41] LABS: Absolute Lymphocytes (CBC) 1.8 K/uL (0.7-4.9); Hematocrit 37.9 % (39.6-49.0); Lymphocytes % 44.3 % (15.3-44.8); MCV 87.6 fL (80-100); RBC Red Blood Cell Count 4.33 M/uL (4.33-5.43)
[2022-08-30 18:44] LABS: Protime INR 1.39
--- NOTE | 2022-08-30 18:48 | ER ---
Nurse's Notes [facility] Name: Chan Gale Age: 21 yrs Sex: Male : 2000 Arrival Date: 08/30/2022 Time: 18:02 Bed 3 Private MD: Diagnosis: Acute respiratory failure;Abuse of other non-psychoactive substances;Bipolar disorder, unspecified;Hypotension, unspecified;Hypomagnesemia;Hypokalemia Presentation: 08/30 18:02 Chief complaint: EMS states: "pt's mother called 911, pt was dropped off by father at aa5 mother's house, pt's mother reported pt collapsed upon entering her house, pt's mother reports history of drug abuse". EMS reports gagging respirations upon scene arrival,sinus tachycardia, systolic BP was 70, pt was given 2mg Narcan without improvement, pt was then intubated by EMS and given 20mg Etomidate IVP, 25mcg Fentanyl IVP, 50mg Ketamine IVP. Pt was also given 50mg Rocuronium IVP post intubation after noting leg shaking by EMS. 2L NS bolus was also given by EMS [employer], FSBG reported by EMS is 92. 18:02 Onset of symptoms was August 30, 2022. aa5 18:02 Acuity: SIRISHA 1 aa5 18:02 Method Of Arrival: EMS: [facility] aa5 18:02 Coronavirus screen: unknown. Ebola Screen: Unable to complete the Ebola screening aa5 because:. 18:02 Risk Assessment: Do you want to hurt yourself or someone else? Unable to obtain. aa5 18:02 Initial Sepsis Screen: Does the patient meet any 2 criteria? Altered Mental Status. HR aa5 > 90 bpm. Yes Does the patient have a suspected source of infection? No. Patient's initial sepsis screen is negative. 18:02 Care prior to arrival: Oral intubation, 7.5 ET tube, 23 at the teeth. IV initiated. 20 aa5 GA, in the right wrist, 20G to L FA. 18:20 Note poison control called and recommended: ABG, CK, lactic acid, ammonia, cardiac and jd3 electrolyte monitoring, 1 amp bicarb for wide QRS. EKG, other related tox screen labs. treat hypotension with pressures as needed. if pressures are not working consider that overdose was ingestion of a beta theodore and use high dose insulin to treat, but have MD call poison control back before administration to confirm dose. treating symptoms at this time. . Historical: - Allergies: 18:02 No Known Allergies; aa5 - PMHx: 18:02 Anxiety; avoident restrictive food intact disorder; Bipolar disorder; Depression; Drug aa5 abuse; 18:12 Anxiety; avoident restrictive food intact disorder; Bipolar disorder; Depression; drug jd3 abuse; - Immunization history:: Adult Immunizations unknown. - Social history:: Smoking status: unknown. - Family history:: not pertinent. Screenin:33 Abuse screen: Denies threats or abuse. Denies injuries from another. Nutritional as6 screening: No deficits noted. Tuberculosis screening: No symptoms or risk factors identified. Fall Risk None identified. Assessment: 18:03 General: Behavior is unresponsive. and intubated. Pain: Unable to use pain scale. mb9 Patient is intubated. Neuro: Veras Agitation-Sedation Scale (RASS): -4 Deep sedation Level of Consciousness is unresponsive, Pupils are Pupil Size: 4mm sluggish. 18:03 Cardiovascular: Heart tones S1 S2 present Capillary refill is > 3 seconds Rhythm is mb9 sinus tachycardia. Respiratory: Airway via oral intubation Respiratory effort is even, unlabored, Respiratory pattern is regular, symmetrical, Ventilator assessment: ET Tube: 7.5 23 cm at lip. Ventilator Mode: Respiratory Rate: 14 FiO2: 50 PEEP: 5 Breath sounds are clear bilaterally. GI: Abdomen is flat, non-distended, Bowel sounds present X 4 quads. Abd is soft X 4 quads. : Urine is clear. EENT: Nares are clear. Derm: Skin is intact, Skin is dry, Skin is red, Skin temperature is hot Rash noted that is red, on chest and abdomen. Musculoskeletal: Capillary refill is > 3 seconds, in bilateral fingers. toes. 18:15 Reassessment: first set of blood cultures sent. mb9 18:20 Reassessment: Dr. Espinosa at bedside. Central line started. mb9 18:30 Reassessment: Second set of blood cultures sent. mb9 18:45 Derm: Skin is intact, Skin is dry, Skin is pink, Skin temperature is warm. mb9 18:55 Cardiovascular: Rhythm is sinus rhythm. Respiratory: Airway via oral intubation mb9 Respiratory effort is even, assisted Respiratory pattern is regular, symmetrical, Ventilator assessment: Breath sounds are clear bilaterally. 18:55 General: Behavior is unresponsive. and intubated . mb9 19:04 Reassessment: Report given to JASON Pratt. mb9 19:43 Respiratory: Ventilator assessment: Ventilator Mode: Assist Control (AC) Tidal Volume: as6 480 Respiratory Rate: 14 FiO2: 50 PEEP: 5 HOB > 30 degrees. 21:10 Neuro: Veras Agitation-Sedation Scale (RASS): +1 Restless. as6 21:16 General: Appears slender. as6 Vital Signs: 18:02 BP 63 / 28; Pulse 126; Resp 18 A; Temp 97.7(A); Pulse Ox 100% on ETT ambu; aa5 18:05 BP 81 / 40; Pulse 123; Pulse Ox 98% on ETT vent; aa5 18:10 BP 99 / 47; Pulse 122; Pulse Ox 99% on ETT vent; aa5 18:15 BP 118 / 68; Pulse 116; Resp 16; Pulse Ox 98% on 50% FiO2 ETT vent; mb9 18:20 BP 115 / 86; Pulse 105; Resp 14; Pulse Ox 98% on 20% FiO2 ETT vent; mb9 18:25 BP 129 / 83; Pulse 86; Resp 14; Pulse Ox 100% on 50% FiO2 ETT vent; mb9 18:30 BP 136 / 95; Pulse 90; Resp 14; Pulse Ox 100% on 50% FiO2 ETT vent; mb9 18:35 BP 137 / 95; Pulse 90; Resp 14; Pulse Ox 100% on 50% FiO2 ETT vent; mb9 18:40 BP 134 / 97; Pulse 81; Resp 14; Pulse Ox 100% on 50% FiO2 ETT vent; mb9 18:45 BP 135 / 94; Pulse 76; Resp 14; Pulse Ox 100% on 50% FiO2 ETT vent; mb9 18:50 BP 142 / 94; Pulse 74; Resp 14; Pulse Ox 100% on 50% FiO2 ETT vent; mb9 18:55 BP 136 / 92; Pulse 70; Resp 14; Pulse Ox 100% on 50% FiO2 ETT vent; mb9 19:18 BP 128 / 93; Pulse 68; Resp 15; Pulse Ox 100% on ETT vent; ll3 19:40 BP 135 / 87; Pulse 64; Resp 14 A; Pulse Ox 100% on 50% FiO2 ETT vent; as6 19:50 Weight 68.04 kg; as6 21:12 BP 109 / 73; Pulse 73; Resp 14 A; Pulse Ox 100% on 45% FiO2 ETT vent; as6 ED Course: 18:02 Patient arrived in ED. jd3 18:02 Arm band placed on. aa5 18:05 Inserted saline lock: 14 gauge in left antecubital area, using aseptic technique. Blood aa5 collected. 18:05 EKG done, by ED staff, reviewed by William Espinosa MD. mb9 18:05 Maintain EMS IV. Dressing intact. Good blood return noted. Site clean \\T\\ dry. Gauge \\T\\ mb 9 site: 20 gauge to right forearm. 18:06 William Espinosa MD is Attending Physician. jasmeet 18:08 Inserted saline lock: 20 gauge in left forearm, using aseptic technique. Blood zm collected. 18:10 Askew cath inserted, using sterile technique, 16 Fr., returned michelle urine. Patient luz tolerated well. 18:12 Triage completed. aa5 18:20 Assisted provider with central line placement. Set up central line tray. Triple lumen mb9 line placed in right femoral. Line placed by William Espinosa MD Dressed with Tegaderm, Blood was collected. Patient tolerated well. 18:22 Charlene Esqueda, RN is Primary Nurse. mb9 18:39 initiated a transfer with ELISABETH from [facility] Transfer [place]. [facility] denied [facility]. 18:40 NGT: inserted 14 Fr. via left nare. Placement verified by X-ray, to intermittent mb9 suction. flushed with 20 ml NS Patient tolerated well. VO obtained prior to insertion. 18:44 initiated a transfer Tyler from [facility] Transfer [place]. mw2 18:54 Blood Culture Adult (2) Sent. mb9 18:54 COVID-19/FLU A+B Sent. mb9 19:00 XRAY Chest (1 view) In Process Unspecified. EDMS 19:[address] Espinosa with the Doctor from [facility]. mw2 19:06 administrative approval given by Tyler Palma/ patient has been accepted to [address] to 8B bed 830/ Dr. Verma accepted the patient in transfer/report to be called to [phone]. 19:33 Placed in gown. Bed in low position. Call light in reach. Side rails up X2. as6 20:15 CT Traumagram (Head C Spine CAP wo con) In Process Unspecified. EDMS 20:39 Primary Nurse role handed off by Charlene Esqueda, JASON mw2 20:47 Terence Santiago, JASON is Primary Nurse. as6 21:13 Patient transferred, IV remains in place. as6 Administered Medications: 18:05 Drug: NS 0.9% 1000 ml Route: IV; Rate: 1000 ml; Site: left antecubital; aa5 21:21 Follow up: Response: No adverse reaction; IV Status: Completed infusion; IV Intake: as6 1000ml 18:22 Drug: Pepcid (famotidine) 20 mg Route: IVP; Site: right hand; mb9 19:25 Follow up: Response: No adverse reaction mb9 18:22 Drug: Benadryl (diphenhydrAMINE) 50 mg Route: IVP; Site: left antecubital; mb9 19:25 Follow up: Response: No adverse reaction mb9 18:23 Drug: Solu-CORTEF (hyrdoCORTISONE) 100 mg Route: IVP; Site: left antecubital; mb9 19:25 Follow up: Response: No adverse reaction mb9 18:32 Drug: Thiamine 100 mg Route: IV; Rate: bolus; Site: left forearm; aa5 21:21 Follow up: Response: No adverse reaction; IV Status: Completed infusion; IV Intake: [id number] 18:35 Drug: Zosyn (piperacillin-tazobactam) 3.375 grams Route: IVPB; Infused Over: 60 mins; aa5 Site: left antecubital; 21:23 Follow up: Response: No adverse reaction; IV Status: Completed infusion; IV Intake: as6 100ml 18:35 Drug: Banana Bag - (NS 0.9% 1000 ml, foLIC Acid 1 mg, Thiamine 100 mg, Multivitamin 1 aa5 amp) Route: IV; Rate: 150 per protocol; Site: left forearm; 21:22 Follow up: Response: No adverse reaction; IV Status: Infusion continued upon transfer as6 18:42 Not Given (Physician Discretion): NS 0.9% (30 ml/kg) 30 ml/kg IV at bolus once; Sepsis aa5 Protocol 19:19 Drug: Magnesium Sulfate 1 grams Route: IVPB; Infused Over: 1 hrs; Site: left ll3 antecubital; 21:20 Follow up: Response: No adverse reaction; IV Status: Completed infusion; IV Intake: as6 100ml 20:23 Drug: Midazolam 4 mg Route: IVP; Site: right femoral; as6 21:20 Follow up: Response: No adverse reaction as6 20:40 Drug: Magnesium Sulfate 1 grams Route: IVPB; Infused Over: 1 hrs; Site: right femoral; as6 21:21 Follow up: Response: No adverse reaction; IV Status: Completed infusion; IV Intake: as6 100ml 20:40 Drug: Potassium Chloride 20 mEq Route: IV; Rate: per protocol; Site: right femoral; as6 21:19 Follow up: Response: No adverse reaction; IV Status: Infusion continued upon transfer as6 21:11 Drug: Propofol 5 mcg/kg/min Route: IV; Rate: calculated rate; Site: right femoral; as6 21:19 Follow up: Response: No adverse reaction; IV Status: Infusion continued upon transfer as6 Medication: 19:50 VIS not applicable for this client. as6 Intake: 21:20 IV: 100ml; Total: 100ml. as6 21:21 IV: 1000ml; Total: 1100ml. as6 21:21 IV: 100ml; Total: 1200ml. as6 21:21 IV: 10ml; Total: 1210ml. as6 21:23 IV: 100ml; Total: 1310ml. as6 Output: 21:00 Urine: 900ml (Askew); Total: 900ml. tw5 Ventilator: 18:02 Fi02: 50%; Rate: 14min; T.V.: 480ml; Peep: 5cm; ET tube: 7.5 fr (Oral); mb9 18:02 23 at the teeth mb9 Outcome: 18:47 ER care complete, transfer ordered by MD. alamo 21:12 Transferred by ground EMS to [facility], Transfer form as6 completed. X-rays sent w/ patient. 21:12 critical 21:12 Instructed on the need for transfer. 21:24 Patient left the ED. as6 Signatures: Dispatcher [employer] EDMS William Espinosa MD MD cha Calderon, Audri, RN RN aa5 Subhash Olivares RN RN jd3 Kaelyn Elda mw2 Mady Stephen tw5 Terence Santiago RN RN as6 Enrike Curtis RN RN ll3 Lillie Cordova, Charlene Vanegas, RN RN mb9 Corrections: (The following items were deleted from the chart) 18:13 18:02 Chief complaint: EMS states: "pt's mother called 911, pt was dropped off by aa5 father at mother's house, pt's mother reported pt collapsed upon entering her house, pt's mother reports history of drug abuse". EMS reports gagging respirations upon scene arrival,sinus tachycardia, systolic BP was 70, pt was intubated by EMS [employer] and given 20mg Etomidate IVP, 25mcg Fentanyl IVP, 50mg Ketamine IVP. Pt was also given 50mg Rocuronium IVP post intubation after noting leg shaking by EMS. 2L NS bolus was also given by EMS [employer], FSBG reported by EMS is 92. aa5 18:44 18:02 NS 0.9% 1000 ml IV at 1000 ml in left antecubital aa5 aa5 18:44 18:05 Inserted saline lock: 14 gauge in left antecubital area, using aseptic technique. aa5 Blood collected. mb9 18:45 18:43 Inserted saline lock: 20 gauge in left forearm, using aseptic technique. Blood zm collected. 19:17 18:03 Neuro: Veras Agitation-Sedation Scale (RASS): 0 - Alert and Calm Level of aa5 Consciousness is unresponsive, Pupils are Pupil Size: 4mm sluggish, mb9 19:20 18:03 General: Behavior is unresponsive. mb9 mb9 19:20 18:03 Neuro: Veras Agitation-Sedation Scale (RASS): 0 - Alert and Calm Level of mb9 Consciousness is unresponsive, Pupils are Pupil Size: 4mm sluggish, aa5 19:24 18:40 NGT: inserted 14 Fr. via left nare. Placement verified by X-ray, to intermittent mb9 suction. flushed with 20 ml NS Patient tolerated well. mb9
--- NOTE | 2022-08-30 18:48 | EDPHYS ---
Physician Documentation [facility] Name: Chan Gale Age: 21 yrs Sex: Male : 2000 Arrival Date: 08/30/2022 Time: 18:02 Bed 3 Private MD: ED Physician William Espinosa HPI: 08/30 18:40 This 21 yrs old Male presents to ER via EMS with complaints of Unresponsive. jasmeet 18:40 The patient presents to the emergency department with a possible overdose. Context: jasmeet Method: unknown. Associated signs and symptoms: Pertinent positives: intubated. Severity of symptoms: At their worst the symptoms were severe in the emergency department the symptoms are unchanged. overdose , unresponsive, intubated. The patient presents with unresponsive. Possible causes: drug use, alcohol, head injury, low blood sugar, seizure, sepsis. Current symptoms: In the emergency department the patient's symptoms intubated on arrival. Historical: - Allergies: 18:02 No Known Allergies; aa5 - PMHx: 18:02 Anxiety; avoident restrictive food intact disorder; Bipolar disorder; Depression; Drug aa5 abuse; 18:12 Anxiety; avoident restrictive food intact disorder; Bipolar disorder; Depression; drug jd3 abuse; - Immunization history:: Adult Immunizations unknown. - Social history:: Smoking status: unknown. - Family history:: not pertinent. ROS: 18:40 Unable to obtain ROS due to patient is on ventilator, intubated and paralyzed . jasmeet Exam: 18:40 Head/Face: Normocephalic, atraumatic. Chest/axilla: Normal chest wall appearance and jasmeet motion. Nontender with no deformity. No lesions are appreciated. Back: No spinal tenderness. No costovertebral tenderness. Full range of motion. MS/ Extremity: Pulses equal, no cyanosis. Neurovascular intact. Full, normal range of motion. 18:40 Eyes: Pupils: equal, round, and reactive to light and accomodation. 18:40 Cardiovascular: Rate: tachycardic, actual rate is 122 bpm, Rhythm: regular, Pulses: Pulses are 4+ in bilateral radial, brachial, femoral, popliteal, posterior tibial and and dorsalis pedis arteries.. Heart sounds: normal, normal S1and S2, no S3 or S4, no murmur, no rub, no gallop, Edema: is not appreciated, JVD: is not appreciated. 18:40 ECG was reviewed by the Attending Physician. Vital Signs: 18:02 BP 63 / 28; Pulse 126; Resp 18 A; Temp 97.7(A); Pulse Ox 100% on ETT ambu; aa5 18:05 BP 81 / 40; Pulse 123; Pulse Ox 98% on ETT vent; aa5 18:10 BP 99 / 47; Pulse 122; Pulse Ox 99% on ETT vent; aa5 18:15 BP 118 / 68; Pulse 116; Resp 16; Pulse Ox 98% on 50% FiO2 ETT vent; mb9 18:20 BP 115 / 86; Pulse 105; Resp 14; Pulse Ox 98% on 20% FiO2 ETT vent; mb9 18:25 BP 129 / 83; Pulse 86; Resp 14; Pulse Ox 100% on 50% FiO2 ETT vent; mb9 18:30 BP 136 / 95; Pulse 90; Resp 14; Pulse Ox 100% on 50% FiO2 ETT vent; mb9 18:35 BP 137 / 95; Pulse 90; Resp 14; Pulse Ox 100% on 50% FiO2 ETT vent; mb9 18:40 BP 134 / 97; Pulse 81; Resp 14; Pulse Ox 100% on 50% FiO2 ETT vent; mb9 18:45 BP 135 / 94; Pulse 76; Resp 14; Pulse Ox 100% on 50% FiO2 ETT vent; mb9 18:50 BP 142 / 94; Pulse 74; Resp 14; Pulse Ox 100% on 50% FiO2 ETT vent; mb9 18:55 BP 136 / 92; Pulse 70; Resp 14; Pulse Ox 100% on 50% FiO2 ETT vent; mb9 19:18 BP 128 / 93; Pulse 68; Resp 15; Pulse Ox 100% on ETT vent; ll3 19:40 BP 135 / 87; Pulse 64; Resp 14 A; Pulse Ox 100% on 50% FiO2 ETT vent; as6 19:50 Weight 68.04 kg; as6 21:12 BP 109 / 73; Pulse 73; Resp 14 A; Pulse Ox 100% on 45% FiO2 ETT vent; as6 Ventilator: 18:02 Fi02: 50%; Rate: 14min; T.V.: 480ml; Peep: 5cm; ET tube: 7.5 fr (Oral); mb9 18:02 23 at the delia mb9 Procedures: 19:25 Central Line: the site was prepped with Betadine, in sterile fashion, a triple lumen jasmeet catheter was inserted, in the right femoral vein, in 3 attempts. placement was verified, by blood return, the site was dressed with using sterile technique, the patient tolerated the procedure, well. MDM: 18:06 Patient medically screened. jasmeet 19:01 Differential diagnosis:. Differential Diagnosis altered mental status, sepsis, flu. jasmeet Differential Diagnosis: CVA, electrolyte abnormality, alcohol intoxication, hypoglycemia, intracranial bleed, pneumonia, sepsis, UTI, volume depletion. Data reviewed: vital signs, nurses notes, EMS record, lab test result(s), EKG, radiologic studies, CT scan, plain films. 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 Test interpretation: by ED physician or midlevel provider: ECG, plain radiologic studies. Counseling: I had a detailed discussion with the patient and/or guardian regarding: the historical points, exam findings, and any diagnostic results supporting the discharge/admit diagnosis, lab results, radiology results, the need to transfer to another facility. 08/30 18:09 Order name: Basic Metabolic Panel; Complete Time: 19:22 [facility] 08/30 18:09 Order name: CBC with Diff; Complete Time: 18:44 [facility] 08/30 18:09 Order name: LFT's; Complete Time: 19:22 [facility] 08/30 18:09 Order name: Magnesium; Complete Time: 19:22 [facility] 08/30 18:09 Order name: NT PRO-BNP; Complete Time: 19:22 [facility] 08/30 18:09 Order name: PT-INR; Complete Time: 18:44 [facility] 08/30 18:09 Order name: Troponin HS; Complete Time: 19:22 [facility] 08/30 18:09 Order name: Acetaminophen; Complete Time: 19:22 [facility] 08/30 18:09 Order name: ETOH Level; Complete Time: 19:00 [facility] 08/30 18:09 Order name: Ptt, Activated; Complete Time: 18:44 [facility] 08/30 18:09 Order name: Salicylate; Complete Time: 19:00 [facility] 08/30 18:09 Order name: Urine Drug Screen; Complete Time: 19:00 [facility] 08/30 18:09 Order name: ABG; Complete Time: 18:44 [facility] 08/30 18:09 Order name: COVID-19/FLU A+B; Complete Time: 19:22 [facility] 08/30 18:09 Order name: XRAY Chest (1 view); Complete Time: 19:50 [facility] 08/30 18:09 Order name: CT Traumagram (Head C Spine CAP wo con); Complete Time: 20:43 [facility] 08/30 18:09 Order name: Blood Culture Adult (2) [facility] 08/30 18:09 Order name: Lactate w/ 2H reflex if indic.; Complete Time: 19:00 [facility] 08/30 18:21 Order name: Glucose, Ancillary Testing; Complete Time: 18:44 EDMS 12 18:24 Order name: Urine Dipstick-Ancillary; Complete Time: 18:44 EDMS 08/30 18:24 Order name: AMMONIA; Complete Time: 19:22 j 08/30 18:28 Order name: Creatine Phosphokinase; Complete Time: 19:22 EDMS 08/30 18:09 Order name: EKG; Complete Time: 18:10 [facility] 08/30 18:09 Order name: Cardiac monitoring; Complete Time: 18:16 [facility] 08/30 18:09 Order name: EKG - Nurse/Tech; Complete Time: 18:16 [facility] 08/30 18:09 Order name: IV Saline Lock; Complete Time: 18:16 [facility] 08/30 18:09 Order name: Labs collected and sent; Complete Time: 18:16 [facility] 08/30 18:09 Order name: O2 Per Protocol; Complete Time: 18:16 [facility] 08/30 18:09 Order name: O2 Sat Monitoring; Complete Time: 18:16 [facility] 08/30 18:09 Order name: Suicide Screening ([place]); Complete Time: 19:08 [facility] 08/30 18:09 Order name: Urine Dipstick-Ancillary (obtain specimen); Complete Time: 18:44 [facility] 08/30 18:09 Order name: Central Line Kit; Complete Time: 19:08 [facility] 08/30 18:09 Order name: Askew; Complete Time: 18:44 [facility] 08/30 19:22 Order name: Restraint:Violent/Self Destructive (Adult:18yo or >); Complete Time: 21:12 [facility] 12 19:23 Order name: NG Tube; Complete Time: 19:24 mb9 EC:40 Rate is 125 beats/min. Rhythm is regular. QRS [place] is Normal. LA interval is normal. jasmeet QRS interval is normal. QT interval is normal. No Q waves. T waves are Normal. No ST changes noted. Clinical impression: Sinus tachycardia. Interpreted by me. Reviewed by me. Administered Medications: 18:05 Drug: NS 0.9% 1000 ml Route: IV; Rate: 1000 ml; Site: left antecubital; aa5 21:21 Follow up: Response: No adverse reaction; IV Status: Completed infusion; IV Intake: as6 1000ml 18:22 Drug: Pepcid (famotidine) 20 mg Route: IVP; Site: right hand; mb9 19:25 Follow up: Response: No adverse reaction mb9 18:22 Drug: Benadryl (diphenhydrAMINE) 50 mg Route: IVP; Site: left antecubital; mb9 19:25 Follow up: Response: No adverse reaction mb9 18:23 Drug: Solu-CORTEF (hyrdoCORTISONE) 100 mg Route: IVP; Site: left antecubital; mb9 19:25 Follow up: Response: No adverse reaction mb9 18:32 Drug: Thiamine 100 mg Route: IV; Rate: bolus; Site: left forearm; aa5 21:21 Follow up: Response: No adverse reaction; IV Status: Completed infusion; IV Intake: [id number] 18:35 Drug: Zosyn (piperacillin-tazobactam) 3.375 grams Route: IVPB; Infused Over: 60 mins; aa5 Site: left antecubital; 21:23 Follow up: Response: No adverse reaction; IV Status: Completed infusion; IV Intake: as6 100ml 18:35 Drug: Banana Bag - (NS 0.9% 1000 ml, foLIC Acid 1 mg, Thiamine 100 mg, Multivitamin 1 aa5 amp) Route: IV; Rate: 150 per protocol; Site: left forearm; 21:22 Follow up: Response: No adverse reaction; IV Status: Infusion continued upon transfer as6 18:42 Not Given (Physician Discretion): NS 0.9% (30 ml/kg) 30 ml/kg IV at bolus once; Sepsis aa5 Protocol 19:19 Drug: Magnesium Sulfate 1 grams Route: IVPB; Infused Over: 1 hrs; Site: left ll3 antecubital; 21:20 Follow up: Response: No adverse reaction; IV Status: Completed infusion; IV Intake: as6 100ml 20:23 Drug: Midazolam 4 mg Route: IVP; Site: right femoral; as6 21:20 Follow up: Response: No adverse reaction as6 20:40 Drug: Magnesium Sulfate 1 grams Route: IVPB; Infused Over: 1 hrs; Site: right femoral; as6 21:21 Follow up: Response: No adverse reaction; IV Status: Completed infusion; IV Intake: as6 100ml 20:40 Drug: Potassium Chloride 20 mEq Route: IV; Rate: per protocol; Site: right femoral; as6 21:19 Follow up: Response: No adverse reaction; IV Status: Infusion continued upon transfer as6 21:11 Drug: Propofol 5 mcg/kg/min Route: IV; Rate: calculated rate; Site: right femoral; as6 21:19 Follow up: Response: No adverse reaction; IV Status: Infusion continued upon transfer as6 Disposition Summary: 08/30/22 18:47 Transfer Ordered Transfer Location: [facility] jasmeet Reason: Higher level of care jasmeet Condition: Fair jasmeet Problem: new jasmeet Symptoms: have improved jasmeet Accepting Physician: to [facility](08/30/22 21:24) as6 Diagnosis - Acute respiratory failure jasmeet - Abuse of other non-psychoactive substances jasmeet - Bipolar disorder, unspecified jasmeet - Hypotension, unspecified jasmeet - Hypomagnesemia jasmeet - Hypokalemia jasmeet Forms: - Medication Reconciliation Form jasmeet - SBAR form jasmeet Signatures: Dispatcher [employer] William Estrada MD MD cha Calderon, Audri RN RN aa5 Subhash Olivares RN RN jTerence Harden RN RN as6 Enrike Curtis RN RN theresa3 Gilda Patricia PA-C PA-C [email or web address] Charlene Esqueda RN RN mb9 Corrections: (The following items were deleted from the chart) 18:26 18:25 CREATINE PHOSPHOKINASE+C.LAB.BRZ ordered. EDIL EDIL 19:03 18:47 to [facility] jasmeet jasmeet 19:23 19:03 to [facility] jasmeet jasmeet 21:24 19:23 to [facility] jasmeet as6
[2022-08-30 18:49] LABS: Barbiturates NEGATIVE (NEGATIVE); Benzodiazepines POSITIVE (NEGATIVE); Cocaine NEGATIVE (NEGATIVE); METHAMPHETAM NEGATIVE (NEGATIVE); Methadone NEGATIVE (NEGATIVE); Opiates NEGATIVE (NEGATIVE); Phencyclidine NEGATIVE (NEGATIVE); THC Cannibis POSITIVE (NEGATIVE)
[2022-08-30 18:54] LABS: Albumin 3.3 g/dL (3.4-5.0); Bilirubin Direct 0.1 mg/dL (0-0.2); Bilirubin Total 0.8 mg/dL (0.2-1.0); Magnesium 1.7 mg/dL (1.8-2.4); Protein, Total 5.4 g/dL (6.4-8.2)
[2022-08-30 18:56] LABS: Troponin High Sensitivity 6.3 pg/mL (<58.9)
[2022-08-30 19:13] LABS: SARS-COV-2 RT PCR NEGATIVE (NEGATIVE)
[2022-08-30] MEDS ORDERED: MAGNESIUM SULFATE 1 gm IVPB 1 GM/100 ML BAG IV ONE ×2 (19:13→19:34)
--- NOTE | 2022-08-30 19:33 | RAD REPORT ---
EXAM DESCRIPTION: Lewis Single View08/30/2022 6:58 pm CLINICAL HISTORY: Cough COMPARISON: September 2021 FINDINGS: Endotracheal tube has its tip 4 centimeter above the top of the aortic arch. It should be advanced Nasogastric tube within the lateral gastric fundus The lungs appear clear of acute infiltrate. The heart is normal size
[2022-08-30] MEDS ORDERED: KCL 20 MEQ/100 mL IVPB 100 ML IV ONE (19:34)
[2022-08-30] MEDS ORDERED: MIDAZOLAM HCL 2 MG/2 ML INJ ONE (20:00)
--- NOTE | 2022-08-30 20:31 | RAD REPORT ---
EXAM DESCRIPTION: CT - Head C Spine Cap Wo Con - 08/30/2022 8:13 pm CLINICAL HISTORY: Head and neck injury with chest and abdominal pain status post fall TECHNIQUE: Computed axial tomography of head, neck, chest, abdomen and pelvis obtained. IV and oral contrast not requested. Coronal and sagittal reconstruction performed. All CT scans are performed using dose optimization technique as appropriate and may include automated exposure control or mA/KV adjustment according to patient size. COMPARISON: CT head and C-spine September 2021 FINDINGS: An intracranial bleed is not seen. The ventricles are normal in caliber. An extra-axial fluid collection is not noted. No significant hy podensity within the brain. . Fluid within the sinuses/mastoids is not seen. A cervical fracture is not seen. No dislocation is noted. The evaluation of mediastinum, blake, vessels, solid organs and bowel are limited secondary to the lac k of contrast administration. A mediastinal hematoma is not noted. A pleural effusion is not seen. A lung contusion is not present. Nasogastric tube within the lateral gastric fundus. An endotracheal tube has its tip 3.5 centimeters above the top of the aortic arch. The liver,spleen, pancreas, adrenals,kidneys and bladder do not demonstrate an acute traumatic injury Askew catheter within the bladder. Right femoral line in place IMPRESSION: No acute intracranial abnormality is seen. A cervical fracture is not visualized. If the patient continues have symptoms to suggest intracrania l/spinal cord pathology MRI be recommended No acute traumatic abnormality involving the chest/abdomen/pelvis.
[2022-08-30] MEDS ORDERED: propofoL 1,000 MG/100 ML VIAL IV ONE (21:00)
[2022-08-30 21:33] VITALS: TEMP 97.7
[2022-08-30 21:39] VITALS: O2SAT 100
[2022-08-30 21:50] VITALS: BP 109/73
== END 2022-08-30 21:24 | disposition short-term general hospital (02) ==
LOC: ER 18:01
DX: J96.00 Acute respiratory failure, unspecified whether with hypoxia or hypercapnia (principal); F55.8 Abuse of other non-psychoactive substances; I95.9 Hypotension, unspecified; E83.42 Hypomagnesemia; E87.6 Hypokalemia; F31.9 Bipolar disorder, unspecified; Z20.822 Contact with and (suspected) exposure to COVID-19
CPT/HCPCS: 87040 ×2; 85025; 80048; 36415; 80320; 82140; 83735; 82550; 80329 ×2; 85610; 82947; 80076; 83605; 85730; 81003; 84484; 83880; 0240U; 80307; 70450; 71250; 72125; 71045; 94002; 82805; 51702; 99291; J3411; J1200; J2704; J2543; J3480; J2250; J3475 ×2; J7030 ×2; J1720

== ENCOUNTER 2022-12-11 18:13 | Emergency (ER) | payer OTHER ==
--- OUTSIDE RECORDS SUMMARY | 2022-12-11 18:20 | XMS REPORT | Continuity of Care Document ---
:2000 Author Organization [facility] t Address [address] [place] [address] Care Team Providers Name Role Phone Kenya Aiken Primary Care Physician KENYA FUENTES Attending Clinician Unavailable CHUYITA HAYNES Attending Clinician Unavailable CRISTINA AZUL Attending Clinician Unavailable Kenya Aiken Attending Clinician Doctor Unassigned, [place] Attending Clinician Unavailable Marilu Steiner LVN Attending Clinician TRINIDAD ESTRADA Attending Clinician Unavailable Trinidad Estrada DO Attending Clinician MICHAEL ASHRAF Attending Clinician Unavailable Campbell Guerrero MD Attending Clinician [phone] Ayaan Yung DO Attending Clinician Michael Ashraf DO Attending Clinician Kim Patel PHD Attending Clinician KIM PATEL Attending Clinician Unavailable JAZMYN ESPINAL M.D. Attending Clinician Unavailable CHANCE VAZQUEZ APRN Attending Clinician Unavailable KENYA FUENTES Admitting Clinician Unavailable CAMPBELL GUERRERO Admitting Clinician Unavailable Ayaan Yung DO Admitting Clinician Payers Payer Name Policy Type Policy Number Effective Date Expiration Date S [facility] [id number] 2018 CHOICE [place] STAR 00:00:00 Problems Condition Condition Condition Status Onset Resolution Last Treating Co mments Source Name Details Category Date Date Treatment Clinician Date Need for Need for Disease Active Unive rs hepatitis hepatitis 1-23 ity of C C 00:00: [place] screening screening 00 [facility] test test Branch Low bone Low bone Disease Active Unive rs density density 1-23 ity of for age for age 00:00: [place] 00 Medical Branch Encounter Encounter Disease Active 2021-09 Uni vers to to 2 [place]y of establish establish 00[place]00[place] RLS RLS Disease Active 2021-09 Univers (restless (restless 11-06 ity of legs legs 00:00: [place] syndrome) syndrome) 00 [facility] Branch BMI less BMI less Disease Active 2021-09 Unive rs than than 11-06 ity of 19,adult 19,adult 00:00: [place] 00 Medical Branch Drug Drug Disease Active 2021-09 Univers overdose overdose 2-03 ity of of of 00:00: [place] undetermin undetermin 00 Me dical ed intent, ed intent, Br anch initial initial encounter encounter Bipolar 1 Bipolar 1 Disease Recurre [place] disorder, disorder, nce 5-29 ity of mixed mixed 00:00: [place] anxiety-de anxiety-de 00 Me dical pression, pression, Bran ch moderate moderate Anxiety Anxiety Disease Active Univers 5-29 ity of 00:00: [place] 00 [...] [place] 00 Medical Branch Attention Attention Disease Recurre 2007- [place] deficit deficit nce 1-19 ity of hyperactiv hyperactiv 00:00: [place] [...] nce abuse nce abuse Phys ici ans Major Major Problem Active [place] depressive [...] Active Univers ALLERGIE Class ity of S [facility] Social History Social Habit Start Date Stop Date Quantity Comments Source Exposure to 2022-11-18 2022-11-28 Not sure [facility] SARS-CoV-2 (event) 00:00:00 11:48:00 [facility] Alcohol intake 2022-10-20 2022-10-20 Current University of 00:00:00 00:00:00 non-drinker of [facility] alcohol Branch (finding) Tobacco Comment 2022-09-05 2022-09-05 Vapes Universit y of 00:00:00 00:00:00 [facility] Tobacco use and 2022-09-05 2022-09-05 Smokeless Universit y of exposure 00:00:00 00:00:00 tobacco non-user [facility] dical [place] Cigarettes smoked 2022-09-05 2022-09-05 Univers ity of current (pack per 00:00:00 00:00:00 [facility] ) - Reported Branch History of tobacco 2018-07-08 Cigarette Smoker University of use 00:00:00 [facility] Sex Assigned At 2000 2002 Universit y of 00:00:00 00:00:00 [facility] Smoking Status Start Date Stop Date Source Never smoked tobacco [facility] (finding) Smokes tobacco daily 2022-09-05 00:00:00 Univers ity [facility] Ex-smoker 2022-09-01 00:00:00 2022-09-01 00:00:00 Universi ty [facility] Medications Ordered Filled Start Stop Current Ordering Indication Dosage Frequency Signature Comments Components Source Medication Medication Date Date Medication? Clinician (SIG) Name Name ondansetron 2022- Yes [id number] 4mg Take 1 Univers (ZOFRAN) 4 12-02-18 tablet by ity of mg tablet 00:00: 04:59 mouth [place] 00 :00 every 8 Medical (eight) Branch hours as needed for Nausea and Vomiting (N/V) for up to 10 days. ondansetron 2022- Yes [id number] 4mg Take 1 Univers (ZOFRAN) 4 12-02-18 tablet by ity of mg tablet 00:00: 04:59 mouth [place] 00 :00 every 8 Medical (eight) Branch hours as needed for Nausea and Vomiting (N/V) for up to 10 days. OXcarbazepi 2021-09- No 600mg Take 600 Univers ne 600 mg 11-06- mg by ity of tablet 14:31: 00:00 mouth 2 [place] 18 :00 (two) Medical times Branch daily. OXcarbazepi 2021-09- No 600mg Take 600 Univers ne 600 mg 11-06- mg by ity of tablet 14:31: 00:00 mouth 2 [place] 18 :00 (two) Medical times Branch daily. LORazepam 2021-09- No 1mg Take 1 mg Univers mg Cp24 11-06- by mouth 2 ity o f 14:27: 00:00 (two) [place] 07 :00 times Medical daily. Branch LORazepam 2021-09- No 1mg Take 1 mg Univers mg Cp24 11-06 by mouth 2 ity o f 14:27: 00:00 (two) [place] 07 :00 times Medical daily. Branch olanzapine 2022-1 Yes Take by [facility] ers (ZYPREXA 2-09 mouth 2 ity of ORAL) 14:26: (two) [place] [address] times Medical daily. Branch Prescribed by [facility] - Apr 2019 gabapentin 2-1 Yes 600mg Take 600 [place] 600 mg 2-09 mg by ity of tablet 14:26: mouth in [place] [address] the Medical morning Branch and 600 mg at noon and 600 mg in the evening. olanzapine 2021-1 Yes Take by [employer] ers (ZYPREXA 2-09 mouth 2 ity of ORAL) 14:26: (two) [place] [address] times Medical daily. Branch Prescribed by [facility] Apr 2019 gabapentin 2021-1 Yes 600mg Take 600 [place] 600 mg 2-09 mg by ity of tablet 14:26: mouth in [place] [address] the Medical morning Branch and 600 mg at noon and 600 mg in the evening. olanzapine 2021- Yes Take by [employer] ers (ZYPREXA 2-09 mouth 2 ity of ORAL) 14:26: (two) [place] [address] times Medical daily. Branch Prescribed by [facility] - Apr 2019 gabapentin 2021-1 Yes 600mg Take 600 [place] 600 mg 2-09 mg by ity of tablet 14:26: mouth in [place] [address] the Medical morning Branch and 600 mg at noon and 600 mg in the evening. olanzapine 2021-1 Yes Take by [employer] ers (ZYPREXA 2-09 mouth 2 ity of ORAL) 14:26: (two) [place] [address] times Medical daily. Branch Prescribed by [facility] - Apr 2019 gabapentin 2-1 Yes 600mg Take 600 [place] 600 mg 2-09 mg by ity of tablet 14:26: mouth in [place] [address] the Medical morning Branch and 600 mg at noon and 600 mg in the evening. olanzapine 2-1 Yes Take by [employer] ers (ZYPREXA 2-09 mouth 2 ity of ORAL) 14:26: (two) [place] [address] times Medical daily. Branch Prescribed by [facility] Apr 2019 gabapentin 2-1 Yes 600mg Take 600 [place] 600 mg 2-09 mg by ity of tablet 14:26: mouth in [place] [address] the Medical morning Branch and 600 mg at noon and 600 mg in the evening. olanzapine 2021-1 Yes Take by [employer] ers (ZYPREXA 2-09 mouth 2 ity of ORAL) 14:26: (two) [place] [address] times Medical daily. Branch Prescribed by [facility] - Apr 2019 gabapentin 2022-1 Yes 600mg Take 600 [place] 600 mg 2-09 mg by ity of tablet 14:26: mouth in [place] [address] the Medical morning Branch and 600 mg at noon and 600 mg in the evening. olanzapine 2021-1 Yes Take by [employer] ers (ZYPREXA 2-09 mouth 2 ity of ORAL) 14:26: (two) [place] [address] times Medical daily. Branch Prescribed by [facility] - Apr 2019 gabapentin 2022-1 Yes 600mg Take 600 [place] 600 mg 2-09 mg by ity of tablet 14:26: mouth in [place] [address] the Medical morning Branch and 600 mg at noon and 600 mg in the evening. olanzapine 2021-1 Yes Take by [employer] ers (ZYPREXA 2-09 mouth 2 ity of ORAL) 14:26: (two) [place] [address] times Medical daily. Branch Prescribed by [facility] - Apr 2019 gabapentin 2-1 Yes 600mg Take 600 [place] 600 mg 2-09 mg by ity of tablet 14:26: mouth in [place] [address] the Medical morning Branch and 600 mg at noon and 600 mg in the evening. olanzapine 2-1 Yes Take by [employer] ers (ZYPREXA 2-09 mouth 2 ity of ORAL) 14:26: (two) [place] [address] times Medical daily. Branch Prescribed by [facility] - Apr 2019 gabapentin 2022-1 Yes 600mg Take 600 [place] 600 mg 2-09 mg by ity of tablet 14:26: mouth in [place] [address] the Medical morning Branch and 600 mg at noon and 600 mg in the evening. olanzapine 2-1 Yes Take by [employer] ers (ZYPREXA 2-09 mouth 2 ity of ORAL) 14:26: (two) [place] [address] times Medical daily. Branch Prescribed by [facility] - Apr 2019 gabapentin 2022-1 Yes 600mg Take 600 [place] 600 mg 2-09 mg by ity of tablet 14:26: mouth in [place] [address] the Medical morning Branch and 600 mg at noon and 600 mg in the evening. olanzapine 2021- Yes Take by Univ ers (ZYPREXA 2-09 mouth 2 ity of ORAL) 14:26: (two) [place] [address] times Medical daily. Branch Prescribed by [facility] - Apr 2019 gabapentin 2021-1 Yes 600mg Take 600 [place] 600 mg 2-09 mg by ity of tablet 14:26: mouth in [place] [address] the Medical morning Branch and 600 mg at noon and 600 mg in the evening. olanzapine 2021- Yes Take by [employer] ers (ZYPREXA 2-09 mouth 2 ity of ORAL) 14:26: (two) [place] [address] times Medical daily. Branch Prescribed by [facility] Apr 2019 gabapentin 2021- Yes 600mg Take 600 [place] 600 mg 2-09 mg by ity of tablet 14:26: mouth in [place] [address] the Medical morning Branch and 600 mg at noon and 600 mg in the evening. olanzapine 2021- Yes Take by [employer] ers (ZYPREXA 2-09 mouth 2 ity of ORAL) 14:26: (two) [place] [address] times Medical daily. Branch Prescribed by [facility] Apr 2019 gabapentin 2021-1 Yes 600mg Take 600 [place] 600 mg 2-09 mg by ity of tablet 14:26: mouth in [place] [address] the Medical morning Branch and 600 mg at noon and 600 mg in the evening. olanzapine 2021-1 Yes Take by [employer] ers (ZYPREXA 2-09 mouth 2 ity of ORAL) 14:26: (two) [place] [address] times Medical daily. Branch Prescribed by [facility] Apr 2019 gabapentin 2021-1 Yes 600mg Take 600 [place] 600 mg 2-09 mg by ity of tablet 14:26: mouth in [place] [address] the Medical morning Branch and 600 mg at noon and 600 mg in the evening. olanzapine 2-1 Yes Take by [employer] ers (ZYPREXA 2-09 mouth 2 ity of ORAL) 14:26: (two) [place] 27 times Medical daily. Branch Prescribed by [facility] - Apr 2019 gabapentin 2021-09 Yes 600mg Take 600 [place] 600 mg 2-09 mg by ity of tablet 14:26: mouth in [place] 27 the Medical morning Branch and 600 mg at noon and 600 mg in the evening. SERTraline 2021-09- No 100mg Take 100 U nivers 100 mg 209 12-09 mg by ity of tablet 14:19: 00:00 mouth [place] 22 :00 daily. Medical Prescribed Branch by [facility] no - Apr 2019 SERTraline 2021-09- No 100mg Take 100 U nivers 100 mg 2- 12-09 mg by ity of tablet 14:19: 00:00 mouth [place] 22 :00 daily. Medical Prescribed Branch by [facility] - Apr 2019 nicotine 2021-09 Yes 1{patch 1 Patch, [place] (NICODERM) 2-06 } Topical, ity o f 21 mg/24 hr 19:45: Administer [place] patch 1 00 over 24 Medical Patch Hours, Branch Q24H, First dose on e 09/02/22 at 1345, Until Discontinu ed, Routine hydrOXYzine 2021-09 No 10mg 10 mg, Uni vers (ATARAX) 2-06 12-06 Oral, ity of tablet 10 19:30: 18:49 ONCE, 1 [place] mg 00 :00 dose, On Medical [facility] Branch 09/02/22 at 1330, Routine gabapentin 2021-09 Yes 600mg Take 600 [place] 600 mg 2-06 mg by ity of tablet 17:34: mouth in [place] 50 the Medical morning Branch and 600 mg at noon and 600 mg in the evening. gabapentin 2021-09 Yes 600mg Take 600 [place] 600 mg 2-06 mg by ity of tablet 17:34: mouth in [place] 50 the Medical morning Branch and 600 mg at noon and 600 mg in the evening. gabapentin 2021-09 Yes 600mg Take 600 [place] 600 mg 2-06 mg by ity of tablet 17:34: mouth in [place] 50 the Medical morning Branch and 600 mg at noon and 600 mg in the evening. OXcarbazepi 2021- Yes 600mg Take 600 U nivers ne 600 mg 2-06 mg by ity of tablet 15:34: mouth 2 [place] 48 (two) Medical times Branch daily. SERTraline 2021-09 Yes 100mg Take 100 [place] 100 mg 2-06 mg by ity of tablet 15:34: mouth [place] 48 daily. Medical Prescribed Branch by [facility] - Apr 2019 olanzapine 2021-09 Yes Take by [facility] ers (ZYPREXA 2-06 mouth 2 ity of ORAL) 15:34: (two) [place] 48 times Medical daily. Branch Prescribed by [facility] Apr 2019 LORazepam 1 2021-09 Yes 1mg Take 1 mg U nivers mg Cp24 2-06 by mouth 2 ity of 15:34: (two) [place] 48 times Medical daily. Branch OXcarbazepi 2021-09 Yes 600mg Take 600 U nivers ne 600 mg 2-06 mg by ity of tablet 15:34: mouth 2 [place] 48 (two) Medical times Branch daily. SERTraline 2021-09 Yes 100mg Take 100 [place] 100 mg 2-06 mg by ity of tablet 15:34: mouth [place] 48 daily. Medical Prescribed Branch by [facility] - Apr 2019 olanzapine 2021-09 Yes Take by [facility] ers (ZYPREXA 2-06 mouth 2 ity of ORAL) 15:34: (two) [place] 48 times Medical daily. Branch Prescribed by [facility] Apr 2019 LORazepam 1 2021-09 Yes 1mg Take 1 mg U nivers mg Cp24 2-06 by mouth 2 ity of 15:34: (two) [place] 48 times Medical daily. Branch OXcarbazepi 2021-09 Yes 600mg Take 600 U nivers ne 600 mg 2-06 mg by ity of tablet 15:34: mouth 2 [place] 48 (two) Medical times Branch daily. SERTraline 2021- Yes 100mg Take 100 [place] 100 mg 2-06 mg by ity of tablet 15:34: mouth [place] 48 daily. Medical Prescribed Branch by [facility] Apr 2019 olanzapine 2021-09 Yes Take by Univ ers (ZYPREXA 2-06 mouth 2 ity of ORAL) 15:34: (two) [place] 48 times Medical daily. Branch Prescribed by [facility] - Apr 2019 LORazepam 1 2021-09 Yes 1mg Take 1 mg U nivers mg Cp24 2-06 by mouth 2 ity of 15:34: (two) [place] 48 times Medical daily. Branch OXcarbazepi 2021-09 Yes 600mg Take 600 U nivers ne 600 mg 2-06 mg by ity of tablet 15:34: mouth 2 [place] 48 (two) Medical times Branch daily. SERTraline 2021-09 Yes 100mg Take 100 [place] 100 mg 2-06 mg by ity of tablet 15:34: mouth [place] 48 daily. Medical Prescribed Branch by [facility] - Apr 2019 olanzapine 2021-09 Yes Take by [facility] ers (ZYPREXA 2-06 mouth 2 ity of ORAL) 15:34: (two) [place] 48 times Medical daily. Branch Prescribed by [facility] - Apr 2019 gabapentin 2021-09 Yes 600mg Take 600 [place] 600 mg 2-06 mg by ity of tablet 15:34: mouth in [place] 48 the Medical morning Branch and 600 mg at noon and 600 mg in the evening. LORazepam 2021-09 Yes 1mg Take 1 mg U nivers mg Cp24 2-06 by mouth 2 ity of 15:34: (two) [place] 48 times Medical daily. Branch LORazepam 2021-09 Yes 1mg 1 mg, Univers (ATIVAN) 2-06 Oral, QAM, ity o f tablet 1 mg 15:00: First dose [place] 00 on Tue Medical 09/02/22 at Branch 0900, Until Discontinu ed, Routine OLANZapine 2021-09 Yes 15mg 15 mg, Unive rs (ZyPREXA) 2-06 Oral, QHS, ity of tablet 15 03:00: First dose [place] mg 00 on Mon Medical 09/01/22 at Branch 2100, Until Discontinu ed, Routine PARoxetine 2021-09 Yes 20mg 20 mg, Unive rs (PAXIL) 2-06 Oral, QHS, ity of tablet 20 03:00: [place] dose [place] mg 00 on [facility] 09/01/22 at Branch 2100, Until Discontinu ed, Routine gabapentin 2021-09 Yes 600mg 600 mg, Uni vers (NEURONTIN) 2 Oral, TID, it y of tablet 600 02:00: First dose [place] mg 00 on [facility] 09/01/22 at Branch 2000, Until Discontinu ed, Routine acetaminoph 2021-09 No 325mg 325 mg, U nivers en 11-0206 Oral, ity of (TYLENOL) 23:49: 00:20 ONCE, 1 [place] tablet 325 00 :00 dose, On Medic al mg [facility] 09/01/22 at 1800, Routine clonazePAM 2021-09 Yes 1mg 1 mg, Univer s (KLONOPIN) 11-02 Oral, Q8H, ity of tablet 1 mg 16:15: First dose [place] 00 (after Medical last Branch modificati on) on [facility] 09/01/22 at 1015, Until Discontinu ed, Routine ketamine 2021-09 No 50mg 50 mg, Univer s (KETALAR) 11-01 Slow IV ity of injection 23:30: 07:04 Push, [place] 50 mg 00 :00 ONCE, 1 Medical dose, On Branch [facility] 08/31/22 at 1730, Routine clonazePAM 2021-09 No 1mg 1 mg, Unive rs 0.1 mg/mL 11-01 Oral, TID, ity of oral 20:00: 14:29 First dose [place] suspension 00 :11 on [facility] Medical 1 mg 08/31/22 at Branch 1400, Until Discontinu ed, Routine midazolam 2021-09 No 1mg/h 1-10 mg/hr Univers (VERSED) 11-01 (1-10 ity of STD 50mg in 16:14: 11:18 mL/hr), IV [place] NaCl 0.9% 18 :51 Infusion, Medic al (NS) 50 mL TITRATE, Branc h infusion Sedation-R RTU ASS score (0 to -1), Sedation-R ASS score (-2 to -3), If too agitated may use a rass of -3, Starting on [facility] 08/31/22 at 1014
In itiate infusion at 1 mg/hr and titrate by 1 mg/hr every 3 minutes to 10 minutes to goal sedation score. Maximum dose = 10 mg/hr.&nbs p; If goal not maintained at maximum allowed dose, contact prescriber .
enoxaparin 2021-09 Yes 40mg 40 mg, Unive rs (LOVENOX) 2-04 Subcutaneo ity of injection 15:00: [place], DAILY, [place] 40 mg 00 First dose Medical on [facility] Branch 08/31/22 at 0900, Until Discontinu ed, Routine dexMEDEtomi 2021-09- No .2ug/kg 0.2-1.5 Univers dine 200 2- 12-06 /h mcg/kg/hr ity o f mcg in 0.9 14:33: 00:39 ?61 kg [place] % NaCl 50 19 :35 (3.05-22.8 Medi patrick mL 75 mL/hr, Branch (PRECEDEX) rounded to RTU IV 3.05-22.88 infusion mL/hr), IV Infusion, TITRATE, Sedation-R ASS score (0 to -1), Starting on [facility] 08/31/22 at 0833
In itiate infusion at 0.2 mcg/kg/hr and titrate by 0.1 mcg/kg/hr every 30 minutes to goal sedation score. Maximum dose = 1.5 mcg/kg/hr. If goal not maintained at maximum allowed dose, contact prescriber .
fentaNYL PF 2021-09- No 25ug/h 25-200 U nivers (SUBLIMAZE) 2- 12-05 mcg/hr ity o f STD 2,500 08:03: 11:18 (2.5-20 [place] mcg in NaCl 47 :51 mL/hr), IV Me dical 0.9% (NS) Infusion, Branc h 250 mL TITRATE, infusion CPOT/Pain RTU Scale Goals Determined by Provider, Starting on [facility] 08/31/22 at 0203
In itiate infusion at 25 mcg/hr. Titrate by 25 mcg/hr every 1 minute to 15 minutes to identified goal pain and/or sedation scores. Maximum dose = 200 mcg/hr. If goal not maintained at maximum allowed dose, contact prescriber .
FENTanyl PF 2021-09- No 50ug 50 mcg, Un juan (SUBLIMAZE 11-01 Slow IV ity o f (PF)) 08:00: 07:14 Push, [place] injection 00 :00 ONCE, 1 Medical 50 mcg dose, On Branch [facility] 08/31/22 at 0200, Routine propofoL IV 2021-09- No 5ug/kg/ 5-50 [place] infusion 11-01 min mcg/kg/min ity of 07:24: 07:09 ?61 kg [place] 17 :53 (1.83-18.3 Medical mL/hr), IV Branch Infusion, TITRATE, Sedation-R ASS score (0 to -1), Starting on [facility] 08/31/22 at 0124
In itiate infusion at 5 mcg/kg/min and titrate by 5 mcg/kg/min every 30 seconds to 10 minutes to goal sedation score. Maximum dose = 50 mcg/kg/min . If goal not maintained at maximum allowed dose, contact prescriber . &nbs p;Tubing and unused portions of vials should be discarded after 12 hours.
lactated 2021-09- No 1000mL at 999 Univ ers ringers IV 11-01- mL/hr, ity of infusion 07:15: 07:00 1,000 mL, Sathya as 1,000 mL 00 :00 Intravenou Medic al s, ONCE, 1 Branch dose, On [facility] 08/31/22 at 0115, Routine midazolam 2021-09- No 1mg/h 1-10 mg/hr Univers (VERSED) 11-01- (1-10 ity of STD 50mg in 06:26: 16:14 mL/hr), IV [place] NaCl 0.9% 10 :53 Infusion, Medic al (NS) 50 mL TITRATE, Branc h infusion Sedation-R RTU ASS score (0 to -1), Starting on [facility] 08/31/22 at 0026
In itiate infusion at 1 mg/hr and titrate by 1 mg/hr every 3 minutes to 10 minutes to goal sedation score. Maximum dose = 10 mg/hr.&nbs p; If goal not maintained at maximum allowed dose, contact prescriber .
gabapentin 2021-09- Take by Uni vers 300 mg/6 mL 2- 12-03 mouth 2 ity of (6 mL) 23:09: 00:00 (two) [place] solution 11 :00 times Medical daily. Branch prescribed at [facility] no summer 2018 PARoxetine 2021-09 Yes 20mg Take 20 mg U nivers 20 mg 1-21 by mouth ity of tablet 00:00: in the [place] 00 morning. Medical Branch LORazepam 1 2021-09 Yes 1mg Take 1 mg U nivers mg tablet 1-21 by mouth ity of 00:00: in the [place] 00 morning. Medical Branch PARoxetine 2021-09 Yes 20mg Take 20 mg U nivers 20 mg 1-21 by mouth ity of tablet 00:00: in the [place] morning. Medical Branch LORazepam 2021-09 Yes 1mg Take 1 mg U nivers mg tablet 1-21 by mouth ity of 00:00: in the [place] morning. Medical Branch PARoxetine 2021-09 Yes 20mg Take 20 mg U nivers 20 mg 1-21 by mouth ity of tablet 00:00: in the [place] 00 morning. Medical Branch LORazepam 2021-09 Yes 1mg Take 1 mg U nivers mg tablet 1-21 by mouth ity of 00:00: in the [place] 00 morning. Medical Branch PARoxetine 2021-09 Yes 20mg Take 20 mg U nivers 20 mg 1-21 by mouth ity of tablet 00:00: in the [place] 00 morning. Medical Branch LORazepam 2021-09 Yes 1mg Take 1 mg U nivers mg tablet 1-21 by mouth ity of 00:00: in the [place] 00 morning. Medical Branch PARoxetine 2021-09 Yes 20mg Take 20 mg U nivers 20 mg 1-21 by mouth ity of tablet 00:00: in the [place] 00 morning. Medical Branch LORazepam 2021-09 Yes 1mg Take 1 mg U nivers mg tablet 1-21 by mouth ity of 00:00: in the [place] 00 morning. Medical Branch PARoxetine 2021-09 Yes 20mg Take 20 mg U nivers 20 mg 1-21 by mouth ity of tablet 00:00: in the [place] 00 morning. Medical Branch LORazepam 2021-09 Yes 1mg Take 1 mg U nivers mg tablet 1-21 by mouth ity of 00:00: in the [place] morning. Medical Branch PARoxetine 2021- Yes 20mg Take 20 mg U nivers 20 mg 1-21 by mouth ity of tablet 00:00: in the [place] morning. Medical Branch LORazepam 2021-09 Yes 1mg Take 1 mg U nivers mg tablet 1-21 by mouth ity of 00:00: in the [place] morning. Medical Branch PARoxetine 2021-09 Yes 20mg Take 20 mg U nivers 20 mg 1-21 by mouth ity of tablet 00:00: in the [place] morning. Medical Branch LORazepam 1 2021-09 Yes 1mg Take 1 mg U nivers mg tablet 1-21 by mouth ity of 00:00: in the [place] morning. Medical Branch PARoxetine 2021- Yes 20mg Take 20 mg U nivers 20 mg 1-21 by mouth ity of tablet 00:00: in the [place] morning. Medical Branch LORazepam 1 2021-09 Yes 1mg Take 1 mg U nivers mg tablet 1-21 by mouth ity of 00:00: in the [place] morning. Medical Branch PARoxetine 2021- Yes 20mg Take 20 mg U nivers 20 mg 1-21 by mouth ity of tablet 00:00: in the [place] morning. Medical Branch LORazepam 2021-09 Yes 1mg Take 1 mg U nivers mg tablet 1-21 by mouth ity of 00:00: in the [place] morning. Medical Branch PARoxetine 2021- Yes 20mg Take 20 mg U nivers 20 mg 1-21 by mouth ity of tablet 00:00: in the [place] morning. Medical Branch LORazepam 1 2021-09 Yes 1mg Take 1 mg U nivers mg tablet 1-21 by mouth ity of 00:00: in the [place] morning. Medical Branch PARoxetine 2021- Yes 20mg Take 20 mg U nivers 20 mg 1-21 by mouth ity of tablet 00:00: in the [place] 00 morning. Medical Branch LORazepam 1 2021-09 Yes 1mg Take 1 mg U nivers mg tablet 1-21 by mouth ity of 00:00: in the [place] morning. Medical Branch PARoxetine 2021- Yes 20mg Take 20 mg U nivers 20 mg 1-21 by mouth ity of tablet 00:00: in the [place] 00 morning. Medical Branch LORazepam 1 2021-09 Yes 1mg Take 1 mg U nivers mg tablet 1-21 by mouth ity of 00:00: in the [place] 00 morning. Medical Branch PARoxetine 2021- Yes 20mg Take 20 mg U nivers 20 mg 1-21 by mouth ity of tablet 00:00: in the [place] 00 morning. Medical Branch LORazepam 1 2021-09 Yes 1mg Take 1 mg U nivers mg tablet 1-21 by mouth ity of 00:00: in the [place] 00 morning. Medical Branch PARoxetine 2021- Yes 20mg Take 20 mg U nivers 20 mg 1-21 by mouth ity of tablet 00:00: in the [place] 00 morning. Medical Branch LORazepam 1 2021-09 Yes 1mg Take 1 mg U nivers mg tablet 1-21 by mouth ity of 00:00: in the [place] 00 morning. Medical Branch SERTraline 2020-0 Yes 100mg Take 100 Un juan 100 mg 1-25 mg by ity of tablet 18:52: mouth [place] 12 daily. Medical Prescribed Branch by [facility] - Apr 2019 SERTraline 2020-0 Yes 100mg Take 100 Un juan 100 mg 1-25 mg by ity of tablet 18:52: mouth [place] 12 daily. Medical Prescribed Branch by [facility] - Apr 2019 SERTraline 2020-0 Yes 100mg Take 100 Un juan 100 mg 1-25 mg by ity of tablet 18:52: mouth [place] 12 daily. Medical Prescribed Branch by [facility] - Apr 2019 olanzapine 2020-0 Yes Take by [facility] ers (ZYPREXA 1-25 mouth 2 ity of ORAL) 18:52: (two) [place] 09 times Medical daily. Branch Prescribed by [facility] - Apr 2019 olanzapine 2020-0 Yes Take by [facility] ers (ZYPREXA 1-25 mouth 2 ity of ORAL) 18:52: (two) [place] 09 times Medical daily. Branch Prescribed by [facility] Apr 2019 olanzapine 2020-0 Yes Take by [facility] ers (ZYPREXA 1-25 mouth 2 ity of ORAL) 18:52: (two) [place] 09 times Medical daily. Branch Pres[facility] no - Apr 2019 gabapentin 2020-0 Yes Take by Univ ers 300 mg/6 mL 1-25 mouth 2 ity o f (6 mL) 18:52: (two) [place] solution 07 times Medical daily. Branch prescribed at [facility] no summer 2018 gabapentin 2020-0 Yes Take by Univ ers 300 mg/6 mL 1-25 mouth 2 ity o f (6 mL) 18:52: (two) [place] solution 07 times Medical daily. Branch prescribed at [facility] no summer 2018 gabapentin 2020-0 Yes Take by Univ ers 300 mg/6 mL 1-25 mouth 2 ity o f (6 mL) 18:52: (two) [place] solution 07 times Medical daily. Branch prescribed at [facility] no summer 2018 OXcarbazepi 2020-0 Yes 600mg [...] Medical tablet times Branch daily. Sertraline Sertraline 2019- Yes JAZMYN TEDDY Take 25 mg [facility] [...] Tablet 00:00: BEDTIME. ans 00 Gabapentin Gabapentin 2019- Yes JAZMYN TEDDY Q0.3333D TAKE 1 [facility] 300 MG Oral 300 MG Oral 0-23 M.D. CAPSULE 3 Physici Capsule Capsule 00:00: TIMES ans 00 DAILY. OXcarbazepi OXcarbazepi 2019-0 Yes JAZMYN TEDDY Q0.5D TAKE ON E UT ne 300 MG ne 300 MG 9-16 M.D. (1) Physi ci Oral Tablet Oral Tablet 00:00: TABLET(S) ans 00 BY MOUTH TWICE A DAY. busPIRone 2019- Yes [id number] 15mg Take 1 Un juan 15 mg 6-06 tablet by ity of tablet 00:00: mouth 2 [place] 00 (two) Medical times Branch daily. DULoxetine 2019- Yes [id number] 60mg Take 1 U nivers 60 mg 6-04 capsule by ity of capsule 00:00: mouth [place] 00 daily. Medical Branch DULoxetine 2019- Yes [id number] 30mg Take 1 U nivers 30 mg 6-04 capsule by ity of capsule 00:00: mouth [place] 00 daily. Medical Branch OXcarbazepi 2019- Yes 600mg Take 600 U nivers ne 5-29 mg by ity of (TRILEPTAL) 19:48: mouth 2 Sathya as 600 mg 44 (two) Medical tablet times Branch daily. traZODONE 2019- Yes [id number] 25mg Take 0.5 Univers 50 mg 5-29 [...] 00:00:00 formulation(groups A, C, Y and W-135) TDAP 2014-05-25 Completed University of 00:00:00 [facility] Meningococcal 2014-05-25 Completed University of Polysaccharide 00:00:00 [place] Medi patrick (groups A, C, Y and Branc h W-135) conjugate vaccine (MCV4P) HPV 2014-05-25 Completed University of 00:00:00 [facility] TDAP 2014-05-25 Completed University of 00:00:00 [facility] Meningococcal 2014-05-25 Completed University of Polysaccharide 00:00:00 [place] Medi patrick (groups A, C, Y and Branc h W-135) conjugate vaccine (MCV4P) HPV 2014-05-25 Completed University of 00:00:00 [facility] TDAP 2014-05-25 Completed University of 00:00:00 [facility] Meningococcal 2014-05-25 Completed University of Polysaccharide 00:00:00 [place] Medi patrick (groups A, C, Y and Branc h W-135) conjugate vaccine (MCV4P) HPV 2014-05-25 Completed University of 00:00:00 [facility] TDAP 2014-05-25 Completed University of 00:00:00 [facility] Meningococcal 2014-05-25 Completed University of Polysaccharide 00:00:00 [place] Medi patrick (groups A, C, Y and Branc h W-135) conjugate vaccine (MCV4P) HPV 2014-05-25 Completed University of 00:00:00 [facility] Branch TDAP 2014-05-25 Completed University of 00:00:00 [facility] Meningococcal 2014-05-25 Completed University of Polysaccharide 00:00:00 [place] Medi patrick (groups A, C, Y and Branc h W-135) conjugate vaccine (MCV4P) Tdap 2014-05-25 Completed University of 00:00:00 [place] [facility] HPV 2014-05-25 Completed University of 00:00:00 [facility] Branch Meningococcal 2014-05-25 Completed University of Polysaccharide 00:00:00 [place] Medi patrick (groups A, C, Y and Branc h W-135) conjugate vaccine (MCV4P) HPV 2014-05-25 Completed University of 00:00:00 [facility] Branch TDAP 2014-05-25 Completed University of 00:00:00 [facility] Meningococcal 2014-05-25 Completed University of Polysaccharide 00:00:00 [place] Medi patrick (groups A, C, Y and Branc h W-135) conjugate vaccine (MCV4P) HPV 2014-05-25 Completed University of 00:00:00 [facility] Branch TDAP 2014-05-25 Completed University of 00:00:00 [facility] Meningococcal 2014-05-25 Completed University of Polysaccharide 00:00:00 [place] Medi patrick (groups A, C, Y and Branc h W-135) conjugate vaccine (MCV4P) HPV 2014-05-25 Completed University of 00:00:00 [facility] TDAP 2014-05-25 Completed University of 00:00:00 [facility] Meningococcal 2014-05-25 Completed University of Polysaccharide 00:00:00 [place] Medi patrick (groups A, C, Y and Branc h W-135) conjugate vaccine (MCV4P) HPV 2014-05-25 Completed University of 00:00:00 [facility] Branch TDAP 2014-05-25 Completed University of 00:00:00 [facility] Meningococcal 2014-05-25 Completed University of Polysaccharide 00:00:00 [place] Medi patrick (groups A, C, Y and Branc h W-135) conjugate vaccine (MCV4P) HPV 2014-05-25 Completed University of 00:00:00 [facility] Branch TDAP 2014-05-25 Completed University of 00:00:00 [facility] Branch Meningococcal 2014-05-25 Completed University of Polysaccharide 00:00:00 [place] Medi patrick (groups A, C, Y and Branc h W-135) conjugate vaccine (MCV4P) HPV 2014-05-25 Completed University of 00:00:00 [facility] TDAP 2014-05-25 Completed University of 00:00:00 [facility] Meningococcal 2014-05-25 Completed University of Polysaccharide 00:00:00 [place] Medi patrick (groups A, C, Y and Branc h W-135) conjugate vaccine (MCV4P) HPV 2014-05-25 Completed University of 00:00:00 [facility] Branch TDAP 2014-05-25 Completed University of 00:00:00 [facility] Meningococcal 2014-05-25 Completed University of Polysaccharide 00:00:00 [place] Medi patrick (groups A, C, Y and Branc h W-135) conjugate vaccine (MCV4P) HPV 2014-05-25 Completed University of 00:00:00 [facility] TDAP 2014-05-25 Completed University of 00:00:00 [facility] Meningococcal 2014-05-25 Completed University of Polysaccharide 00:00:00 [place] Medi patrick (groups A, C, Y and Branc h W-135) conjugate vaccine (MCV4P) HPV 2014-05-25 Completed University of 00:00:00 [facility] TDAP 2014-05-25 Completed University of 00:00:00 [facility] Meningococcal 2014-05-25 Completed University of Polysaccharide 00:00:00 [place] Medi patrick (groups A, C, Y and Branc h W-135) conjugate vaccine (MCV4P) HPV 2014-05-25 Completed University of 00:00:00 [facility] Tdap 2014-05-25 Completed University of 00:00:00 [facility] TDAP 2014-05-25 Completed University of 00:00:00 [facility] Meningococcal 2014-05-25 Completed University of Polysaccharide 00:00:00 [place] Medi patrick (groups A, C, Y and Branc h W-135) conjugate vaccine (MCV4P) HPV 2014-05-25 Completed University of 00:00:00 [facility] Meningococcal 2014-05-25 Completed University of Polysaccharide 00:00:00 [place] Medi patrick (groups A, C, Y and Branc h W-135) conjugate vaccine (MCV4P) HPV 2014-05-25 Completed University of 00:00:00 [facility] TDAP 2014-05-25 Completed University of 00:00:00 [facility] Meningococcal 2014-05-25 Completed University of Polysaccharide 00:00:00 [place] Medi patrick (groups A, C, Y and Branc h W-135) conjugate vaccine (MCV4P) HPV 2014-05-25 Completed University of 00:00:00 [facility] TDAP 2014-05-25 Completed University of 00:00:00 [facility] Meningococcal 2014-05-25 Completed University of Polysaccharide 00:00:00 [place] Medi patrick (groups A, C, Y and Branc h W-135) conjugate vaccine (MCV4P) HPV 2014-05-25 Completed University of 00:00:00 [facility] TDAP 2014-05-25 Completed University of 00:00:00 [facility] Meningococcal 2014-05-25 Completed University of Polysaccharide 00:00:00 [place] Medi patrick (groups A, C, Y and Branc h W-135) conjugate vaccine (MCV4P) HPV 2014-05-25 Completed University of 00:00:00 [facility] TDAP 2014-05-25 Completed University of 00:00:00 [facility] Meningococcal 2014-05-25 Completed University of Polysaccharide 00:00:00 [place] Medi patrick (groups A, C, Y and Branc h W-135) conjugate vaccine (MCV4P) HPV 2014-05-25 Completed University of 00:00:00 [facility] Tdap 2014-05-25 Completed University of 00:00:00 [facility] Meningococcal 2014-05-25 Completed University of Polysaccharide 00:00:00 [place] Medi patrick (groups A, C, Y and Branc h W-135) conjugate vaccine (MCV4P) HPV 2014-05-25 Completed University of 00:00:00 [facility] TDAP 2014-05-25 Completed University of 00:00:00 [facility] Meningococcal 2014-05-25 Completed University of Polysaccharide 00:00:00 [place] Medi patrick (groups A, C, Y and Branc h W-135) conjugate vaccine (MCV4P) HPV 2014-05-25 Completed University of 00:00:00 [facility] influenza virus 2009-08-09 Completed [facility] vaccine, unspecified 00:00:00 formulation H1n1 Vaccine 2009-08-09 Completed University o f 00:00:00 [facility] Influenza Virus 2009-08-09 Completed Universit y of Vaccine 00:00:00 [facility] Branch H1n1 Vaccine 2009-08-09 Completed University o f 00:00:00 [facility] Branch Influenza Virus 2009-08-09 Completed Universit y of Vaccine 00:00:00 [facility] Branch H1n1 Vaccine 2009-08-09 Completed University o f 00:00:00 [facility] Branch Influenza Virus 2009-08-09 Completed Universit y of Vaccine 00:00:00 [facility] Branch H1n1 Vaccine 2009-08-09 Completed University o f 00:00:00 [facility] Branch Influenza Virus 2009-08-09 Completed Universit y of Vaccine 00:00:00 [facility] Branch H1n1 Vaccine 2009-08-09 Completed University o f 00:00:00 [facility] Branch Influenza Virus 2009-08-09 Completed Universit y of Vaccine 00:00:00 [facility] Branch H1n1 Vaccine 2009-08-09 Completed University o f 00:00:00 [facility] Branch Influenza Virus 2009-08-09 Completed Universit y of Vaccine 00:00:00 [facility] Branch H1n1 Vaccine 2009-08-09 Completed University o f 00:00:00 [facility] Branch Influenza Virus 2009-08-09 Completed Universit y of Vaccine 00:00:00 [facility] Branch H1n1 Vaccine 2009-08-09 Completed University o f 00:00:00 [facility] Branch Influenza Virus 2009-08-09 Completed Universit y of Vaccine 00:00:00 [facility] Branch H1n1 Vaccine 2009-08-09 Completed University o f 00:00:00 [facility] Branch Influenza Virus 2009-08-09 Completed Universit y of Vaccine 00:00:00 [facility] Branch H1n1 Vaccine 2009-08-09 Completed University o f 00:00:00 [facility] Branch Influenza Virus 2009-08-09 Completed Universit y of Vaccine 00:00:00 [facility] Branch H1n1 Vaccine 2009-08-09 Completed University o f 00:00:00 [facility] Branch Influenza Virus 2009-08-09 Completed Universit y of Vaccine 00:00:00 [facility] Branch H1n1 Vaccine 2009-08-09 Completed University o f 00:00:00 [facility] Branch Influenza Virus 2009-08-09 Completed Universit y of Vaccine 00:00:00 [facility] Branch H1n1 Vaccine 2009-08-09 Completed University o f 00:00:00 [facility] Branch Influenza Virus 2009-08-09 Completed Universit y of Vaccine 00:00:00 [facility] Branch H1n1 Vaccine 2009-08-09 Completed University o f 00:00:00 [facility] Influenza Virus 2009-08-09 Completed Universit y of Vaccine 00:00:00 [facility] H1n1 Vaccine 2009-08-09 Completed University o f 00:00:00 [facility] Branch H1n1 Vaccine 2009-08-09 Completed University o f 00:00:00 [facility] Influenza Virus 2009-08-09 Completed Universit y of Vaccine 00:00:00 [facility] Influenza Virus 2009-08-09 Completed Universit y of Vaccine 00:00:00 [facility] Branch H1n1 Vaccine 2009-08-09 Completed University o f 00:00:00 [facility] Influenza Virus 2009-08-09 Completed Universit y of Vaccine 00:00:00 [facility] H1n1 Vaccine 2009-08-09 Completed University o f 00:00:00 [facility] Influenza Virus 2009-08-09 Completed Universit y of Vaccine 00:00:00 [facility] H1n1 Vaccine 2009-08-09 Completed University o f 00:00:00 [facility] Influenza Virus 2009-08-09 Completed Universit y of Vaccine 00:00:00 [facility] H1n1 Vaccine 2009-08-09 Completed University o f 00:00:00 [facility] Influenza Virus 2009-08-09 Completed Universit y of Vaccine 00:00:00 [facility] H1n1 Vaccine 2009-08-09 Completed University o f 00:00:00 [facility] Influenza Virus 2009-08-09 Completed Universit y of Vaccine 00:00:00 [facility] H1n1 Vaccine 2009-08-09 Completed University o f 00:00:00 [facility] Influenza Virus 2009-08-09 Completed Universit y of Vaccine 00:00:00 [facility] H1n1 Vaccine 2009-08-09 Completed University o f 00:00:00 [facility] Influenza Virus 2009-08-09 Completed Universit y of Vaccine 00:00:00 [facility] influenza virus 2009-07-04 Completed [facility] vaccine, unspecified 00:00:00 formulation Influenza Virus 2009-07-04 Completed Universit y of Vaccine 00:00:00 [facility] Influenza Virus 2009-07-04 Completed Universit y of Vaccine 00:00:00 [facility] Influenza Virus 2009-07-04 Completed Universit y of Vaccine 00:00:00 [facility] Influenza Virus 2009-07-04 Completed Universit y of Vaccine 00:00:00 [facility] Influenza Virus 2009-07-04 Completed Universit y of Vaccine 00:00:00 [facility] Influenza Virus 2009-07-04 Completed Universit y of Vaccine 00:00:00 [facility] Influenza Virus 2009-07-04 Completed Universit y of Vaccine 00:00:00 [facility] Influenza Virus 2009-07-04 Completed Universit y of Vaccine 00:00:00 [facility] Influenza Virus 2009-07-04 Completed Universit y of Vaccine 00:00:00 [facility] Influenza Virus 2009-07-04 Completed Universit y of Vaccine 00:00:00 [facility] Influenza Virus 2009-07-04 Completed Universit y of Vaccine 00:00:00 [facility] Influenza Virus 2009-07-04 Completed Universit y of Vaccine 00:00:00 [facility] Influenza Virus 2009-07-04 Completed Universit y of Vaccine 00:00:00 [facility] Influenza Virus 2009-07-04 Completed Universit y of Vaccine 00:00:00 [facility] Influenza Virus 2009-07-04 Completed Universit y of Vaccine 00:00:00 [facility] Influenza Virus 2009-07-04 Completed Universit y of Vaccine 00:00:00 [facility] Influenza Virus 2009-07-04 Completed Universit y of Vaccine 00:00:00 [facility] Influenza Virus 2009-07-04 Completed Universit y of Vaccine 00:00:00 [facility] Influenza Virus 2009-07-04 Completed Universit y of Vaccine 00:00:00 [facility] Influenza Virus 2009-07-04 Completed Universit y of Vaccine 00:00:00 [facility] Influenza Virus 2009-07-04 Completed Universit y of Vaccine 00:00:00 [facility] Influenza Virus 2009-07-04 Completed Universit y of Vaccine 00:00:00 [facility] Influenza Virus 2009-07-04 Completed Universit y of Vaccine 00:00:00 [facility] hepatitis A vaccine, 2007-11-17 Completed [facility] [...] Name Observation Time Observation Value Comments Source Systolic blood 2022-10-20 108 mm[Hg] University [facility] 14:09:00 [facility] Diastolic blood 2022-10-20 65 mm[Hg] University o f pressure 14:09:00 [facility] Heart rate 2022-10-20 95 /min University of 14:09:00 [facility] Body temperature 2022-10-20 37.06 Jeana University of 14:09:00 [facility] Body height 2022-10-20 172.7 cm University of 14:09:00 [facility] Body weight 2022-10-20 58.968 kg University of 14:09:00 [facility] BMI 2022-10-20 19.77 kg/m2 University of 14:09:00 [facility] Oxygen saturation 2022-10-20 98 /min University of in Arterial blood 14:09:00 [place] [facility] patrick by Pulse oximetry Branch Systolic blood 2022-09-05 101 mm[Hg] University of pressure 20:22:00 [facility] Diastolic blood 2022-09-05 64 mm[Hg] University o f pressure 20:22:00 [facility] Heart rate 2022-09-05 62 /min University of 20:22:00 [facility] Body temperature 2022-09-05 36.33 Jeana University of 20:22:00 [facility] Body height 2022-09-05 172.7 cm University of 20:22:00 [facility] Body weight 2022-09-05 56.337 kg University of 20:22:00 [facility] BMI 2022-09-05 18.88 kg/m2 University of 20:22:00 [facility] Oxygen saturation 2022-09-05 97 /min University of in Arterial blood 20:22:00 [facility] patrick by Pulse oximetry Branch Systolic blood 2022-09-03 110 mm[Hg] University of pressure 05:40:00 [facility] Diastolic blood 2022-09-03 81 mm[Hg] University o f pressure 05:40:00 [facility] Heart rate 2022-09-03 64 /min University of 05:40:00 [facility] Body temperature 2022-09-03 37.22 Jeana University of 05:40:00 [facility] Respiratory rate 2022-09-03 18 /min University of 05:40:00 [facility] Body height 2022-09-03 172.7 cm University of 05:40:00 [facility] Body weight 2022-09-03 57.153 kg University of 05:40:00 [facility] BMI 2022-09-03 19.16 kg/m2 [facility] 05:40:00 [facility] Oxygen saturation 2022-09-03 100 /min [facility] in Arterial blood 05:40:00 [facility] by Pulse oximetry [place] Systolic blood 2022-09-02 114 mm[Hg] University of pressure 17:17:00 [facility] Diastolic blood 2022-09-02 75 mm[Hg] University o f pressure 17:17:00 [facility] Heart rate 2022-09-02 81 /min University 17:17:00 [facility] Body temperature 2022-09-02 36.61 Jeana [facility] 17:17:00 [facility] Respiratory rate 2022-09-02 18 /min [facility] 17:17:00 [facility] Oxygen saturation 2022-09-02 99 /min [facility] in Arterial blood 17:17:00 [facility] by Pulse oximetry [place] Body weight 2022-09-01 61 kg [facility] 19:40:00 [facility] BMI 2022-09-01 20.45 kg/m2 [facility] 19:40:00 [facility] Body height 2022-09-01 172.7 cm [facility] 19:36:00 [facility] BP Systolic 2019-10-20 118 mm[Hg] Location: [facility]; [facility] 12:54:00 Position: Sitting BP Diastolic 2019-10-20 53 mm[Hg] Location: [place]; [facility] 12:54:00 Position: Sitting Height 2019-10-20 169 cm [facility] 12:54:00 Weight 2019-10-20 125 [lb_av] [facility] 12:54:00 Body Mass Index 2019-10-20 19.85 kg/m2 [facility] Calculated 12:54:00 Heart Rate 2019-10-20 100 /min [facility] 12:54:00 BP Systolic 2019-07-20 93 mm[Hg] Location: [facility] 13:06:00 Position: Sitting BP Diastolic 2019-07-20 58 mm[Hg] Location: [place]; [facility] 13:06:00 Position: Sitting Height 2019-07-20 66 [in_us] [facility] 13:06:00 Weight 2019-07-20 132.375 [lb_av] [facility] 13[facility]06:00 Body Mass Index 2019-07-20 21.37 kg/m2 [facility] Calculated 13:06:00 Temperature 2019-07-20 98.5 [degF] Method: Oral [facility] 13:06:00 Heart Rate 2019-07-20 79 /min Location: L [facility] 13:06:00 Brachial Artery; BP Systolic 2019-02-24 100 mm[Hg] Location: [facility]; [facility] 10:04:00 Position: Sitting BP Diastolic 2019-02-24 61 mm[Hg] Location: [facility]; [facility] 10:04:00 Position: Sitting Height 2019-02-24 167.5 cm [facility] 10:04:00 Weight 2019-02-24 101 [lb_av] [facility] 10:04:00 Body Mass Index 2019-02-24 16.33 kg/m2 [facility] Calculated 10:04:00 Temperature 2019-02-24 98.4 [degF] Method: [facility] 10:04:00 Tympanic Heart Rate 2019-02-24 62 /min Quality: Normal [facility] 10:04:00 Respiration Rate 2019-02-24 18 /min Quality: Normal [facility] 10:04:00 O2 SAT 2019-02-24 100 % Source: RA [facility] 10:04:00 BP Systolic 2019-02-07 103 mm[Hg] [facility] 10:53:00 BP Diastolic 2019-02-07 63 mm[Hg] [facility] 10:53:00 Height 2019-02-07 167.5 cm [facility] 10:53:00 Weight 2019-02-07 44.8 kg [facility] 10:53:00 Body Mass Index 2019-02-07 15.97 kg/m2 [facility] Calculated 10:53:00 Heart Rate 2019-02-07 63 /min [facility] 10:53:00 Temperature 2019-02-07 98 [degF] [facility] 10:53:00 Procedures Procedure Date / Time Performing Clinician Source Performed [facility] PATIENT FINANCIAL 2022-11-28 17:49:34 Doctor Unassigned, No [facility] POLICY Name Medical Branch EXTERNAL PROVIDER 2022-11-19 06:01:00 Doctor Unassigned, No [facility] RECORDS Name Medical Branch DEXA AXIAL (HIP AND 2022-09-17 19:58:00 Kenya Fuentes [facility] SPINE) Medical Branch EXTERNAL PROVIDER 2022-09-16 06:01:00 Doctor Unassigned, No [facility] RECORDS Name [facility] ASSIGNMENT OF BENEFITS 2022-09-05 19:47:49 Doctor Unassigned, No [facility] COMP. METABOLIC PANEL 2022-09-01 10:44:00 Marilyn Mitchell [facility] ([id number]) [facility] CBC WITH DIFF 2022-09-01 10:44:00 Stephen Marilyn [facility] XR CHEST 1 VW 2022-09-01 10:15:00 Johann Cormier [facility] CREATINE KINASE 2022-08-31 09:35:00 Ninfa, [facility] 2022-08-31 09:35:00 Jael Coppola [facility] TROPONIN I 2022-08-31 09:35:00 Jael Coppola [facility] COMP. METABOLIC PANEL 2022-08-31 09:35:00 Jael Coppola [facility] ([id number]) [facility] SALICYLATE 2022-08-31 09:35:00 Jael Coppola [facility] ETHANOL 2022-08-31 09:35:00 Jael Coppola [facility] CBC WITH DIFF 2022-08-31 09:35:00 Anat [facility] URINE DRUG (IMMUNOASSAY) 2022-08-31 09:07:00 Jael Coppola [facility] COMPREHENSIVE DRUG Medical [facility] SCREEN URINE DRUG (LCMSMS) - 2022-08-31 09:07:00 Jael Coppola [facility] COMPREHENSIVE DRUG PANEL Medical Branch AC PANEL 20 + LACTIC 2022-08-31 09:01:00 Jael Coppola [facility] ACID [facility] XR CHEST 1 VW 2022-08-31 05:44:00 Jael Coppola [facility] XR KUB 2022-08-31 05:44:00 Jael Coppola [facility] AUTHORIZATION FOR 2020-08-21 06:01:00 Doctor Unassigned, No [facility] RELEASE OF [facility] Medical Branch [[facility]] CBC (INCLUDES 2019-10-20 00:00:00 [facility] DIFF/PLT) [[facility]] CMP W/EGFR 2019-10-20 00:00:00 [facility] [QL] LIPID PANEL 2019-10-20 00:00:00 [facility] [QL] TSH, 3RD 2019-10-20 00:00:00 [facility] GENERATION [QH] DRUG 2019-07-20 00:00:00 [facility] SCREEN,COMPREHENSIVE (URINE) [QH] DRUG 2019-02-24 00:00:00 [facility] SCREEN,COMPREHENSIVE (URINE) Encounters Start End Encounter Admission Attending Care Care Encounter Source Date/Time Date/Time Type Type Clinicians Facility Department ID 2023-04-24 2023-04-24 [facility] [id number] [facility] 11:00:00 11:00:00 CHUYITA rojas [facility] 2022-12-03 2022-12-03 [facility] [id number] Univers 14:00:00 14:00:00 KENYA rojas [facility] 2022-12-02 2022-12-02 [facility] [id number] Univers 00:00:00 00:00:00 [facility] 350.1.13.10 it y of [place] 4.2.7.2.686 Sathya as NELSON?BLEA [id number] [address] MEDICAL OFFICE BUILDING 2022-11-28 2022-11-28 [facility]patient [facility] [id number] Univers 12:00:00 12:00:00 CHUYITA rojas [facility] 2022-11-28 2022-11-28 Orders Doctor BRITTNEE Silva.2.840.114 [id number] Univers 00:00:00 00:00:00 Only Unassigned, FRANCA 350.1.13.10 ity of [place] [facility] 4.2.7.2.686 Sathya as [phone] [address] 2022-11-19 2022-11-19 Orders Doctor BRITTNEE Silva.2.840.114 [id number] Univers 00:00:00 00:00:00 Only Unassigned, FRANCA 350.1.13.10 ity of [place] [facility] 4.2.7.2.686 Sathya as [phone] [facility] [address] [place] 2022-10-20 2022-10-20 Out[facility] [id number] Univers 08:00:00 08:45:36 KENYA rojas [facility] 2022-10-20 2022-10-20 Office [facility] [id number] Univers 08:00:00 08:45:36 Visit Kenya MEDINA 350.1.13.10 it y [facility] 4.2.7.2.686 Sathya as NELSON?BLEA [phone] [address] OFFICE [facility] 2022-09-23 2022-09-23 Telephone [facility] [id number] Univers 00:00:00 00:00:00 Kenya MEDINA 350.1.13.10 it y of [place] 4.2.7.2.686 Sathya as NELSON?BLEA [phone] [address] OFFICE [facility] 2022-09-17 2022-09-17 Outpatient [facility] [id number] Univers 13:39:39 23:59:00 KENYA rojas [facility] 2022-09-17 2022-09-17 [facility] 1.2.840.114 [id number] Univers 13:39:39 23:59:00 Encounter Kenya CHAPPELL 350.1.13.10 ity [place] [phone] [facility] [address] [place] 2022-09-16 2022-09-16 Orders Doctor BRITTNEE 1.2.840.114 [id number] Univers 00:00:00 00:00:00 Only Unassigned, FRANCA 350.1.13.10 ity of [place] [facility] 4.2.7.2.686 Sathya as [phone] [facility] [address] [place] 2022-09-05 2022-09-05 Outpatient [facility] [id number] Univers 14:00:00 14:51:04 KENYA rojas [facility] 2022-09-05 2022-09-05 Office [facility] 1.2.840.114 [id number] Univers 14:00:00 14:51:04 Visit Kenya MEDINA 350.1.13.10 it y of [place] 4.2.7.2.686 Sathya as NELSON?BLEA [phone] Ma apryl [address] MEDICAL OFFICE BUILDING 2022-09-05 2022-09-05 Orders Doctor BEAULIEU 1.2.840.114 [id number] Univers 00:00:00 00:00:00 Only Unassigned, FRANCA 350.1.13.10 ity of [place] [facility] 4.2.7.2.686 Sathya as [phone] [facility] 009 Branch 2022-09-03 2022-09-03 Transition MINERVA Steiner 1.2.840.114 [id number] Univers 00:00:00 00:00:00 of Care Marilu MCMULLEN 350.1.13.10 [place] of [place] [phone] [facility] 403 Branch 2022-09-02 2022-09-02 Emergency [facility] E[facility] [id number] Univers 23:43:00 23:56:00 TRINIDAD rojas [facility] 2022-09-02 2022-09-02 Emergency [facility] 1.2.840.114 [id number] Univers 23:43:00 23:56:00 Trinidad CHAPPELL 350.1.13.10 it[place] of [place] [phone] [facility] 084 Branch 2022-08-30 2022-09-02 Inpatient [facility] [id number] Univers 22:42:00 15:34:00 MICHAEL ity [facility] 2022-08-30 2022-09-02 [facility] Campbell Guerrero 1. 2.840.114 [id number] Univers 22:42:00 15:34:00 Encounter Ayaan Yung 350.1.13.10 ity of [place] [facility] 4.2.7.2.686 [place] [phone] [facility] 093 Branch 2020-08-21 2020-08-21 Orders Doctor BRITTNEE 1.2.840.114 [id number] 00:00:00 00:00:00 Only Unassigned, FRANCA 350.1.13.10 [place] [facility] 4.2.7.2.686 [id number] 2020-08-21 2020-08-21 Orders Doctor BRITTNEE 1.2.840.114 [id number] Univers 00:00:00 00:00:00 Only Unassigned, FRANCA 350.1.13.10 ity of [place] [facility] 4.2.7.2.686 Sathya as [phone] [place] [address] Branch 2019-12-08 2019-12-08 Office [facility] 1.2.840.114 [id number] 13:05:19 14:05:19 Visit Kim N SPECIALTY 350.1.13.10 [place] 4.2.7.2.686 [place] [id number] 2019-12-08 2019-12-08 Office [facility] 1.2.840.114 [id number] [facility] 13:05:19 14:05:19 Visit Kim N SPECIALTY 350.1.13.10 it[place] of [place] [phone] [place] [address] Branch 2019-12-08 2019-12-08 Outpatient R [facility] [id number] [facility] 13:15:00 13:15:00 KIM martins [facility] 2019-10-20 2019-10-20 Appointmen CHAR ESPINAL Multispecia [id number] [place] 13:00:00 13:00:00 t; JAZMYN ESPINAL M.D. lty - P zuleima ELDRIDGE M.D. [facility] 2019-07-20 2019-07-20 Appointmen CHAR ESPINAL Psychiatry [id number] [place] 13:00:00 13:00:00 t; JAZMYN ESPINAL M.D. Outpatient Jaye ELDRIDGE M.D. [facility] 2019-06-08 2019-06-08 Telephone [facility] 1.2.840.114 [id number] Univers 00:00:00 00:00:00 Kim N SPECIALTY 350.1.13.10 [place]y of [place] 4.2.7.2.686 Lisa MCGARRY [id number] [facility] 151 Branch 2019-02-24 2019-02-24 Appointmen CHAR ESPINAL [id number] [place] 10:00:00 10:00:00 t; JAZMYN ESPINAL M.D. [place] P hys[place] SABA, M.D. ans 2019-02-07 2019-02-07 Appointmen VAZQUEZCHAR Multispecia [id number] [place] 10:20:00 10:20:00 t; lt CHANCEy - Physi alyson sanz , DENA FLETCHER Results Test Description Test Time Test Comments Results Result Comments Source COMP. METABOLIC PANEL ([id number]) 2022-09-01 11:26:16 Test Item Value Reference Range Interpretation Comme nts NA (test code = 0728156226) 138 mmol/L 135-145 K (test code = 0892322016) 3.5 mmol/L 3.5-5.0 S light hemolysis CL (test code = 3042752041) 110 mmol/L 98-108 H CO2 TOTAL (test code = 26 mmol/L 23-31 7421682134) AGAP (test code = 2-16 4540064418) BUN (test code = 9 mg/dL 7-23 Slight hemo lysis 5749894733) GLUCOSE (test code = 99 mg/dL 70-110 3110927739) CREATININE (test code = 0.73 mg/dL 0.60-1.25 3568216111) TOTAL BILI (test code = 0.9 mg/dL 0.1-1.8 0014117705) CALCIUM (test code = 8.2 mg/dL 8.6-10.6 L 2260355322) T PROTEIN (test code = 5.5 g/dL 6.3-8.2 L 4629705884) ALBUMIN (test code = 3.3 g/dL 3.5-5.0 L 9332242006) ALK PHOS (test code = 75 U/L 34-122 Slight hemolysis 8579787134) ALTv (test code = 1742-6) 16 U/L 5-50 AST(SGOT) (test code = 30 U/L 13-40 Sligh t hemolysis 9230023736) eGFR (test code = mL/min/1.73m2 1622253751) KACI (test code = KACI) Association of Glomerular Filtration Rate (GFR) and Staging of Kidney Disease* + + +--- +| GFR (mL/min/1.73 m2) ?| With Kidney Damage ?| ?Without Kidney Damage+ -----+ --+ ---+| ?>90 ?| ?Stage one ?| ? Normal ?+ + +-- +| ?60-89 ?| ?Stage two ?| ? Decreased GFR ? + + +--- +| ?30-59 ?| ?Stage three ?| ? Stage three ? + + +--- +| ?15-29 ?| ?Stage four ? | ? Stage four ?+ + +-- +| ?<15 (or dialysis) ? ?| ?Stage five ? | ? Stage five ?+ + +-- + *Each stage assumes the associated GFR level has been in effect for at least three months. ?Stages 1 to 5, with or without kidney disease, indicate chronic kidney disease. Notes: Determination of stages one and two (with eGFR >59mL/min/1.73 m2) requires estimation of kidney damage for at least three months as defined by structural or functional abnormalities of the kidney, manifested by either:Pathological abnormalities or Markers of kidney damage (including abnormalities in the composition of the blood or urine or abnormalities in imaging tests). Lab Interpretation (test Abnormal code = 78822-3) [facility] WITH [id number] 11:03:17 Test Item Value Reference Range Interpretation Comments WBC (test code = See_Comment [Automated 7379-2) message] The sy stem which generated this result transmitted reference range : 4.20 - 10.70 10*3/?L. The reference range was not used to interpret this result as normal/abnormal . RBC (test code = See_Comment L [Automated 952-8) message] The sy stem which generated this result transmitted reference range : 4.26 - 5.52 10*6/?L. The reference range was not used to interpret this result as normal/abnormal . HGB (test code = 10.8 g/dL 12.2-16.4 L 718-7) HCT (test code = 30.6 % 38.4-49.3 L 4544-3) MCV (test code = 86.9 fL 81.7-95.6 787-2) MCH (test code = 30.7 pg 26.1-32.7 785-6) MCHC (test code = 35.3 g/dL 31.2-35.0 H 786-4) RDW-SD (test code = 41.7 fL 38.5-51.6 07850-1) RDW-CV (test code = 13.2 % 12.1-15.4 788-0) PLT (test code = See_Comment [Automated 777-3) message] The sy stem which generated this result transmitted reference range : 150 - 328 10*3/ ?L. The reference r evita was not used to interpret this result as normal/abnormal . MPV (test code = 11.9 fL 9.8-13.0 91064-0) NRBC/100 WBC (test See_Comment [Automat ed code = 9949683053) message] The system which generated this result transmitted reference range : 0.0 - 10.0 /100 WBCs. The refer ence range was not u sed to interpret th is result as normal/abnormal . NRBC x10^3 (test code See_Comment [Auto mated = 8403026270) message] The s ystem which generated this result transmitted reference range : 10*3/?L. The reference range was not used to interpret this result as normal/abnormal . GRAN MAT (NEUT) % 62.3 % (test code = 770-8) IMM GRAN % (test code 0.20 % = 6375854192) LYMPH % (test code = 25.7 % 736-9) MONO % (test code = 8.0 % 5905-5) EOS % (test code = 3.4 % 713-8) BASO % (test code = 0.4 % 706-2) GRAN MAT x10^3(ANC) 5.01 10*3/uL 1.99-6.95 (test code = 9391041945) IMM GRAN x10^3 (test 0.00-0.06 code = 6802020542) LYMPH x10^3 (test code 2.07 10*3/uL 1.09-3.23 = 731-0) MONO x10^3 (test code 0.64 10*3/uL 0.36-1.02 = 742-7) EOS x10^3 (test code = 0.27 10*3/uL 0.06-0.53 711-2) BASO x10^3 (test code 0.03 10*3/uL 0.01-0.09 = 704-7) Lab Interpretation Abnormal (test code = 51319-8) [facility] [id number] 17:58:42 Test Item Value Reference Range Interpretation Comments CK (test code = 9576734897) 180 U/L 33-194 Lab Interpretation (test code = Normal 28694-0) [facility] CenterTROP[facility]IN [id number] 11:09:00 Test Item Value Reference Interpretation Comments Range TROPONIN I (test 0.001 ng/mL See_Comment [Automated code = 2853129997) message] The system which generated this result transmitted reference range : <=0.034. The reference range was not used to interpret this result as normal/abnormal . KACI (test code = Reference (Normal) KACI) Range (defined by the 99th percentile reference limit): <= 0.034 ng/mL Note: Cardiac troponin begins to rise 3-4 hours after the onset of ischemia. Repeat in 4-6 hours if the sample was drawn within 3-4 hours of the onset of the symptom and found normal. Diagnosis of myocardial injury is made with acute changes in cTn concentrations with at least one serial sample above the 99th percentile upper reference limit (URL), taken together with the patient's clinical presentation. Biotin has been reported to cause a negative bias, interpret results relative to patient's use of biotin. Lab Interpretation Normal (test code = 65780-7) [facility] CenterSALICYLATE2022-12-04 10:59:14 SALICYLATE<10mg/L111/01/2021 4:59 AM CSTUT LABORATORY SERVICESTherapeutic Range: ? Analgesic and Antipyretic Use ? 20-100 mg/L ? ? Anti- Inflammatory Use ? 100-250 mg/L Toxic Range: ? Greater than 300 mg/LUnHouston Methodist The Woodlands HospitalETHANOL2022-12-04 10:59:14ALCOHOL<10mg/dL08/31/2022 4:59 AM CSTUTMB LABORATORY SERVICESToxic Greater than or equal to 80 mg/dL. NOTE: Whole blood values are approximately 10% to 15% lower than serum and plasma.[facility] [id number] 10:59:09 Test Item Value Reference Range Interpretation Comments ACETAMINOP (test code = 10.0-30.0 L 1291095880) KACI (test code = KACI) Toxic: Greater than 200 ug/mL @ 4 hour post ingestion or greater than 50 ug/mL @ 12 hour post ingestion Lab Interpretation (test Abnormal code = 58654-1) [facility] CenterMAGNESIUM2022-12-04 10:58:19 Test Item Value Reference Range Interpretation Comments MAGNESIUM (test code = 0068027619) 1.8 mg/dL 1.7-2.4 Lab Interpretation (test code = Normal 84510-5) [facility] CenterCOMP. METABOLIC PANEL (80326)2022-08-31 10:58:18 Test Item Value Reference Range Interpretation Comments NA (test code = 141 mmol/L 135-145 0678039431) K (test code = 4.0 mmol/L 3.5-5.0 3478619900) CL (test code = 110 mmol/L 98-108 H 9707924465) CO2 TOTAL (test code = 25 mmol/L 23-31 4845286622) AGAP (test code = 2-16 6708500668) BUN (test code = 5 mg/dL 7-23 L 8492731958) GLUCOSE (test code = 80 mg/dL 70-110 5960530086) CREATININE (test code = 0.71 mg/dL 0.60-1.25 5765932608) TOTAL BILI (test code = 0.5 mg/dL 0.1-1.2 0123745770) CALCIUM (test code = 7.7 mg/dL 8.6-10.6 L 6591042443) T PROTEIN (test code = 5.2 g/dL 6.3-8.2 L 5676807439) ALBUMIN (test code = 3.3 g/dL 3.5-5.0 L 8288893269) ALK PHOS (test code = 71 U/L 34-122 1509573076) ALTv (test code = 16 U/L 5-50 1742-6) AST(SGOT) (test code = 23 U/L 13-40 3122610757) eGFR (test code = mL/min/1.73m2 3038424043) KACI (test code = KACI) Association of Glomerular Filtration Rate (GFR) and Staging of Kidney Disease* + --+ --+ ------+| GFR (mL/min/1.73 m2) ?| With Kidney Damage ?| ?Without Kidney Damage+ --------+ --------+ +| ?>90 ?| ?Stage one ?| ? Normal ?+ ---+ ---+ -------+| ?60-89 ?| ?Stage two ?| ? Decreased GFR ? + --+ --+ ------+| ?30-59 ?| ?Stage three ?| ? Stage three ? + --+ --+ ------+| ?15-29 ?| ?Stage four ? | ? Stage four ?+ ---+ ---+ -------+| ?<15 (or dialysis) ? ?| ?Stage five ? | ? Stage five ?+ ---+ ---+ -------+ *Each stage assumes the associated GFR level has been in effect for at least three months. ?Stages 1 to 5, with or without kidney disease, indicate chronic kidney disease. Notes: Determination of stages one and two (with eGFR >59mL/min/1.73 m2) requires estimation of kidney damage for at least three months as defined by structural or functional abnormalities of the kidney, manifested by either:Pathological abnormalities or Markers of kidney damage (including abnormalities in the composition of the blood or urine or abnormalities in imaging tests). Lab Interpretation Abnormal (test code = 91275-0) [facility] WITH [id number] 09:52:32 Test Item Value Reference Range Interpretation Comments WBC (test code = See_Comment H [Automated 6690-2) message] The system which generated this result transmit jordon reference range : 4.20 - 10.70 10*3/?L. The reference range was not used to interpret this result as normal/abnormal . RBC (test code = See_Comment L [Automated 789-8) message] The system which generated this result transmit jordon reference range : 4.26 - 5.52 10*6/?L. The reference range was not used to interpret this result as normal/abnormal . HGB (test code = 11.6 g/dL 12.2-16.4 L 718-7) HCT (test code = 34.3 % 38.4-49.3 L 4544-3) MCV (test code = 86.8 fL 81.7-95.6 787-2) MCH (test code = 29.4 pg 26.1-32.7 785-6) MCHC (test code = 33.8 g/dL 31.2-35.0 786-4) RDW-SD (test code = 41.1 fL 38.5-51.6 28811-3) RDW-CV (test code = 12.9 % 12.1-15.4 788-0) PLT (test code = See_Comment [Automated 777-3) message] The system which generated this result transmit jordon reference range : 150 - 328 10*3/ ?L. The reference range was not u sed to interpret th is result as normal/abnormal . MPV (test code = 11.1 fL 9.8-13.0 78015-3) NRBC/100 WBC (test See_Comment [Automat ed code = 2076507941) message] The system which generated this result transmit jordon reference range : 0.0 - 10.0 /100 WBCs. The reference range was not used to interpret this result as normal/abnormal . NRBC x10^3 (test code See_Comment [Auto mated = 3281311439) message] The system which generated this result transmit jordon reference range : 10*3/?L. The reference range was not used to interpret this result as normal/abnormal . GRAN MAT (NEUT) % 90.1 % (test code = 770-8) IMM GRAN % (test code 0.40 % = 8083597963) LYMPH % (test code = 5.4 % 736-9) MONO % (test code = 3.8 % 5905-5) EOS % (test code = 0.1 % 713-8) BASO % (test code = 0.2 % 706-2) GRAN MAT x10^3(ANC) 14.75 10*3/uL 1.99-6.95 H (test code = 1818242582) IMM GRAN x10^3 (test 0.06 10*3/uL 0.00-0.06 code = 1115584822) LYMPH x10^3 (test code 0.88 10*3/uL 1.09-3.23 L = 731-0) MONO x10^3 (test code 0.62 10*3/uL 0.36-1.02 = 742-7) EOS x10^3 (test code = 0.06-0.53 L 711-2) BASO x10^3 (test code 0.03 10*3/uL 0.01-0.09 = 704-7) Lab Interpretation Abnormal (test code = 92651-8) [facility] Panel 20 + Lactic [id number] 09:16:12 Test Item Value Reference Range Interpretation Comments PH (test code = 2) 7.35-7.45 PCO2 (test code = See_Comment [Automate d 6850293929) message] The sy stem which generated this result transmitted reference range : 35 - 45 mmHg. The reference range was not used to interpret this result as normal/abnormal . PO2 (test code = See_Comment H [Automated 6915917477) message] The sy stem which generated this result transmitted reference range : 80 - 100 mmHg. The reference range was not used to interpret this result as normal/abnormal . HCO3 (test code = See_Comment L [Automate d 8057046925) message] The sy stem which generated this result transmitted reference range : 22 - 26 mEq/L. The reference range was not used to interpret this result as normal/abnormal . BE (test code = See_Comment L [Automated 1237344870) message] The sy stem which generated this result transmitted reference range : -3.0 - 3.0 mEq/ L. The reference r evita was not used to interpret this result as normal/abnormal . THB (test code = 13.2 g/dL 13.5-18.0 L 7894882874) %O2HB (test code = 98.8 % 94.0-99.0 0720380785) %COHB ART (test code = 0.3 % 0.0-1.5 0401322673) %METHB ART (test code = 0.2 % 0.4-1.5 L 2425971979) VOL%O2 ART (test code = 18.8 % 15.0-23.0 3465340766) NA (test code = 139 mmol/L 135-145 2633577975) K+ (test code = 3.9 mmol/L 3.5-5.0 5506567088) AC CA IONZ (test code = 4.60 mg/dL 4.50-5.30 7016124854) GLUCOSE (test code = 88 mg/dL 70-110 7623920851) LACTIC ACID (test code 1.04 mmol/L 0.50-2.20 = 4342084209) Lab Interpretation Abnormal (test code = 95968-4) [facility][H] Drug Screen Urine (9 Drugs)2019-07-20 15:46:01 Test Item Value Reference Range Interpretation Comments [...] Propoxyphene Negative Negative Screen (test code = 66820-0) Urine Drug Screen Note See Note Drugs reported as (test code = Urine Drug posi tive have not been Screen Note) confirmed by a secondmethod an d should be used for medical purpose s only. To orderconfirm ation, contact laboratory.no te: Below are cut-o ff concentrations for all urine drugs marino glover performed in e laboratory. Uzair e drugs listed in the t ablemay not be included in this panel.Desc ription Cut-off concentration-- ------- ------- ----Amp hetamine 1000 ng/mLBarbiturat es 200 ng/mLBenzodiaze pines 200 ng/mLCocain e metabolites 300 ng/mLOpiates 30 0 ng/mLPhencyclid ine 25 ng/mLPropoxyphe ne 300 ng/mLMarijuana metabolites 50 ng/mLMethadone 300 ng/mLUrine alco hol 20 mg/dL [facility][H] Drug Screen Urine (9 Drugs)2019-02-24 [...] Propoxyphene Negative Negative Screen (test code = 25586-1) Urine Drug Screen Note See Note Drugs reported as (test code = Urine Drug posi tive have not been Screen Note) confirmed by a secondmethod an d should be used for medical purpose s only. To orderconfirm ation, contact laboratory.no te: Below are cut-o ff concentrations for all urine drugs marino glover performed in e laboratory. Uzair e drugs listed in the t ablemay not be included in this panel.Desc ription Cut-off concentration-- ------- ------- ----Amp hetamine 1000 ng/mLBarbiturat es 200 ng/mLBenzodiaze pines 200 ng/mLCocain e metabolites 300 ng/mLOpiates 30 0 ng/mLPhencyclid ine 25 ng/mLPropoxyphe ne 300 ng/mLMarijuana metabolites 50 ng/mLMethadone 300 ng/mLUrine alco hol 20 mg/dL [facility]"
--- NOTE | 2022-12-11 18:44 | ER ---
Nurse's Notes [facility] Name: Chan Gale Age: 22 yrs Sex: Male : 2000 Arrival Date: 12/11/2022 Time: 18:15 Bed 12 Private MD: Diagnosis: Patient's unintentional underdosing of medication regimen Presentation: 12/11 18:26 Chief complaint: Parent and/or Guardian states: I ran out of my zyprexa 20 mg at night, kr3 my insurance denied my medication and i ran out. Once I ran out I start having anger outburst. I need to get some of my zyprexa. Coronavirus screen: Vaccine status: Patient reports being unvaccinated. Ebola Screen: Patient denies travel to an Ebola-affected area in the 21 days before illness onset. Initial Sepsis Screen: Does the patient meet any 2 criteria? No. Patient's initial sepsis screen is negative. Does the patient have a suspected source of infection? No. Patient's initial sepsis screen is negative. Risk Assessment: Do you want to hurt yourself or someone else? Patient reports no desire to harm self or others. Onset of symptoms was December 11, 2022. 18:26 Method Of Arrival: Ambulatory kr3 18:26 Acuity: SIRISHA 4 kr3 Triage Assessment: 18:34 General: Appears in no apparent distress. comfortable, Behavior is calm, cooperative, kr3 appropriate for age. Neuro: Level of Consciousness is awake, alert, obeys commands, Oriented to person, place, time, situation. Cardiovascular: Patient's skin is warm and dry. Respiratory: Airway is patent Respiratory effort is even, unlabored, Respiratory pattern is regular, symmetrical. Historical: - Allergies: 18:32 No Known Allergies; kr3 - PMHx: 18:32 Anxiety; Depression; Bipolar disorder; ADHD; avoident restrictive food intact disorder; kr3 drug abuse; - PSHx: 18:32 None; kr3 - Immunization history:: Adult Immunizations not up to date. - Social history:: Smoking status: Reported history of juuling and/or vaping. Vital Signs: 18:26 BP 106 / 76; Pulse 98; Resp 17; Temp 97.8; Pulse Ox 99% ; Weight 62.14 kg; Height 5 ft. kr3 8 in. ; Pain 0/10; 18:26 Body Mass Index 20.83 (62.14 kg, 172.72 cm) kr3 18:26 Pain Scale: Adult kr3 ED Course: 18:15 Patient arrived in ED. rg4 18:29 Brenna Dupree FNP-C is PHCP. snw 18:29 Donta Alcantara MD is Attending Physician. snw 18:32 Triage completed. kr3 18:35 Arm band placed on left wrist. Patient placed. kr3 Administered Medications: No medications were administered Outcome: 18:43 Discharge ordered by . snw Signatures: Brenna Dupree FNP-C FNP-CsnKaylie Guthrie rg4 Marion Magaña, RN RN kr3
--- NOTE | 2022-12-11 18:44 | EDPHYS ---
Physician Documentation [facility] Name: Chan Gale Age: 22 yrs Sex: Male : 2000 Arrival Date: 12/11/2022 Time: 18:15 Bed 12 Private MD: ED Physician Donta Alcantara Historical: - Allergies: 12/11 18:32 No Known Allergies; kr3 - PMHx: 18:32 Anxiety; Depression; Bipolar disorder; ADHD; avoident restrictive food intact disorder; kr3 drug abuse; - PSHx: 18:32 None; kr3 - Immunization history:: Adult Immunizations not up to date. - Social history:: Smoking status: Reported history of juuling and/or vaping. Vital Signs: 18:26 BP 106 / 76; Pulse 98; Resp 17; Temp 97.8; Pulse Ox 99% ; Weight 62.14 kg; Height 5 ft. kr3 8 in. ; Pain 0/10; 18:26 Body Mass Index 20.83 (62.14 kg, 172.72 cm) kr3 18:26 Pain Scale: Adult kr3 MDM: 18:38 Patient medically screened. snw Administered Medications: No medications were administered Disposition Summary: 12/11/22 18:43 Discharge Ordered Location: Home snw Condition: Stable snw Diagnosis - Patient's unintentional underdosing of medication regimen snw Followup: snw - With: Emergency Department - When: As needed - Reason: Worsening of condition Followup: snw - With: Private Physician - When: 2 - 3 days - Reason: Recheck today's complaints, Continuance of care, Re-evaluation by your physician Forms: - Medication Reconciliation Form snw - Thank You Letter snw - Antibiotic Education snw - Prescription Opioid Use snw Signatures: Brenna Dupree FNP-C [employer]-Csnw Marion Magaña, RN RN kr3
[2022-12-11] MEDS ORDERED: OLANZapine 10 MG TABLET PO ONE (19:00)
[2022-12-11 21:11] VITALS: BP 106/76; TEMP 97.8; O2SAT 99
== END 2022-12-11 19:12 | disposition home or self-care (01) ==
LOC: ER 18:13
DX: Z91.138 Patient's unintentional underdosing of medication regimen for other reason (principal); F31.9 Bipolar disorder, unspecified; F90.9 Attention-deficit hyperactivity disorder, unspecified type
CPT/HCPCS: 99283

== ENCOUNTER 2023-05-22 12:25 | Emergency (ER) | payer OTHER ==
--- OUTSIDE RECORDS SUMMARY | 2023-05-22 12:30 | XMS REPORT | Continuity of Care Document ---
:[address] [facility] t Address [address] [place] [address] Care Team Providers Name Role Phone KENYA FUENTES Primary Care Physician Unavailable KENYA FUENTES Attending Clinician Unavailable DONTA HAYNES Attending Clinician Unavailable Donta Haynes MD Attending Clinician CRISTINA AZUL Attending Clinician Unavailable Kenya Aiken Attending Clinician Doctor Unassigned, [place] Attending Clinician Unavailable Marilu Steiner LVN Attending Clinician TRINIDAD ESTRADA Attending Clinician Unavailable Trinidad Estrada DO Attending Clinician MICHAEL ASHRAF Attending Clinician Unavailable Campbell Guerrero MD Attending Clinician [phone] Ayaan Yung DO Attending Clinician Michael Ashraf DO Attending Clinician Kim Patel PHD Attending Clinician KIM PATEL Attending Clinician Unavailable JAZMYN ESPINAL M.D. Attending Clinician Unavailable CHANCE VAZQUEZ APRN Attending Clinician Unavailable KENYA FUENTES Admitting Clinician Unavailable CAMPBELL GUERRERO Admitting Clinician Unavailable Ayaan Yung DO Admitting Clinician Payers Payer Name Policy Type Policy Number Effective Date Expiration Date Beatriz guzmán [facility] [id number] 2018 [place]ICE [place] STAR 00:00:00 Problems Condition Condition Condition Status Onset Resolution Last Treating Co mments Source Name Details Category Date Date Treatment Clinician Date Need for Need for Disease Active Unive rs hepatitis hepatitis 1-23 ity of C C 00:00: [place] screening screening 00 [facility] test test Branch Low bone Low bone Disease Active Unive rs density density 1-23 ity of for age for age 00:00: [place] 00 Medical Branch Encounter Encounter Disease Active 2021-09 Uni vers to to 2-09 [place] of establish establish 00:[place] RLS RLS Disease Active 2021-09 Univers (restless (restless 11-06 ity of legs legs 00:00: [place] syndrome) syndrome) 00 Medi patrick Branch BMI less BMI less Disease Active 2021-09 Unive rs than than 2-09 ity of 19,adult 19,adult 00:00: [place] Medical Branch Drug Drug Disease Active 2021-09 [...] Active Univers ALLERGIE Class ity of S [facility] Social History Social Habit Start Date Stop Date Quantity Comments Source Exposure to 2022-11-18 2022-11-28 Not sure [facility] SARS-CoV-2 (event) 00:00:00 11:48:00 [facility] Alcohol intake 2022-10-20 2022-10-20 Current University of 00:00:00 00:00:00 non-drinker of [facility] alcohol Branch (finding) Tobacco Comment 2022-09-05 2022-09-05 Vapes Universit y of 00:00:00 00:00:00 [facility] Tobacco use and 2022-09-05 2022-09-05 Smokeless Universit y of exposure 00:00:00 00:00:00 tobacco non-user [facility] dical [place] Cigarettes smoked 2022-09-05 2022-09-05 Univers ity of current (pack per 00:00:00 00:00:00 [facility] ) - Reported Branch History of tobacco 2018-07-08 Cigarette Smoker University of use 00:00:00 [facility] Sex Assigned At [birth year] Universit y of 00:00:00 00:00:00 [facility] Smoking Status Start Date Stop Date Source Never smoked tobacco [facility] (finding[facility] Smokes tobacco daily 2022-09-05 00:00:00 Univers ity [facility] Ex-smoker 2022-09-01 00:00:00 2022-09-01 00:00:00 Universi ty [facility] Medications Ordered Filled Start Stop Current Ordering Indication Dosage Frequency Signature Comments Components Source Medication Medication Date Date Medication? Clinician (SIG) Name Name ondansetron 2022- No [id number] 4mg Take 1 Univers (ZOFRAN) 4 12-02-18 tablet by ity of mg tablet 00:00: 04:59 mouth [place] 00 :00 every 8 Medical (eight) Branch hours as needed for Nausea and Vomiting (N/V) for up to 10 days. ondansetron 2022- No [id number] 4mg Take 1 Univers (ZOFRAN) 4 12-02-18 tablet by ity of mg tablet 00:00: 04:59 mouth [place] 00 :00 every 8 Medical (eight) Branch hours as needed for Nausea and Vomiting (N/V) for up to 10 days. OXcarbazepi 2021-09- No 600mg Take 600 Univers ne 600 mg 11-06- mg by ity of tablet 14:31: 00:00 mouth 2 [place] 18 :00 (two) Medical times Branch daily. OXcarbazepi 2021-09- No 600mg Take 600 Univers ne 600 mg 11-06- mg by ity of tablet 14:31: 00:00 mouth 2 [place] 18 :00 (two) Medical times Branch daily. LORazepam 2021-09- No 1mg Take 1 mg Univers mg Cp24 11-06 by mouth 2 ity o f 14:27: 00:00 (two) [place] 07 :00 times Medical daily. Branch LORazepam 2021-09- No 1mg Take 1 mg Univers mg Cp24 11-06 by mouth 2 ity o f 14:27: 00:00 (two) [place] 07 :00 times Medical daily. Branch olanzapine 2022-1 Yes Take by [facility] ers (ZYPREXA 2-09 mouth 2 ity of ORAL) 14:26: (two) [place] [address] times Medical daily. Branch Prescribed by [facility] - Apr 2019 gabapentin 2-1 Yes 600mg Take 600 [place] 600 mg 2-09 mg by ity of tablet 14:26: mouth in [place] [address] the Medical morning Branch and 600 mg at noon and 600 mg in the evening. olanzapine 2021-1 Yes Take by [employer] ers (ZYPREXA 2-09 mouth 2 ity of ORAL) 14:26: (two) [place] [address] times Medical daily. Branch Prescribed by [facility] - Apr 2019 gabapentin 2021-1 Yes 600mg Take 600 [place] 600 mg 2-09 mg by ity of tablet 14:26: mouth in [place] [address] the Medical morning Branch and 600 mg at noon and 600 mg in the evening. olanzapine 2021-1 Yes Take by [facility] ers (ZYPREXA 2-09 mouth 2 ity of ORAL) 14:26: (two) [place] [address] times Medical daily. Branch Prescribed by [facility] - Apr 2019 gabapentin 2021-1 Yes 600mg Take 600 [place] 600 mg 2-09 mg by ity of tablet 14:26: mouth in [place] [address] the Medical morning Branch and 600 mg at noon and 600 mg in the evening. olanzapine 2021-1 Yes Take by [employer] ers (ZYPREXA 2-09 mouth 2 ity of ORAL) 14:26: (two) [place] [address] times Medical daily. Branch Prescribed by [facility] - Apr 2019 gabapentin 2-1 Yes 600mg Take 600 [place] 600 mg 2-09 mg by ity of tablet 14:26: mouth in [place] [address] the Medical morning Branch and 600 mg at noon and 600 mg in the evening. olanzapine 2-1 Yes Take by [employer] ers (ZYPREXA 2-09 mouth 2 ity of ORAL) 14:26: (two) [place] [address] times Medical daily. Branch Prescribed by [facility] - Apr 2019 gabapentin 2022-1 Yes 600mg Take 600 [place] 600 mg 2-09 mg by ity of tablet 14:26: mouth in [place] [address] the Medical morning Branch and 600 mg at noon and 600 mg in the evening. olanzapine 2021- Yes Take by [employer] ers (ZYPREXA 2-09 mouth 2 ity of ORAL) 14:26: (two) [place] [address] times Medical daily. Branch Prescribed by [facility] - Apr 2019 gabapentin 2021-1 Yes 600mg Take 600 [place] 600 mg 2-09 mg by ity of tablet 14:26: mouth in [place] [address] the Medical morning Branch and 600 mg at noon and 600 mg in the evening. olanzapine 2021- Yes Take by [employer] ers (ZYPREXA 2-09 mouth 2 ity of ORAL) 14:26: (two) [place] [address] times Medical daily. Branch Prescribed by [facility] - Apr 2019 gabapentin 2-1 Yes 600mg Take 600 [place] 600 mg 2-09 mg by ity of tablet 14:26: mouth in [place] [address] the Medical morning Branch and 600 mg at noon and 600 mg in the evening. olanzapine 2021-1 Yes Take by [employer] ers (ZYPREXA 2-09 mouth 2 ity of ORAL) 14:26: (two) [place] [address] times Medical daily. Branch Prescribed by [facility] - Apr 2019 gabapentin 2021-1 Yes 600mg Take 600 [place] 600 mg 2-09 mg by ity of tablet 14:26: mouth in [place] [address] the Medical morning Branch and 600 mg at noon and 600 mg in the evening. olanzapine 2021-1 Yes Take by [employer] ers (ZYPREXA 2-09 mouth 2 ity of ORAL) 14:26: (two) [place] [address] times Medical daily. Branch Prescribed by [facility] - Apr 2019 gabapentin 2021-1 Yes 600mg Take 600 [place] 600 mg 2-09 mg by ity of tablet 14:26: mouth in [place] [address] the Medical morning Branch and 600 mg at noon and 600 mg in the evening. olanzapine 2-1 Yes Take by [employer] ers (ZYPREXA 2-09 mouth 2 ity of ORAL) 14:26: (two) [place] [address] times Medical daily. Branch Prescribed by [facility] - Apr 2019 gabapentin 2021-1 Yes 600mg Take 600 [place] 600 mg 2-09 mg by ity of tablet 14:26: mouth in [place] [address] the Medical morning Branch and 600 mg at noon and 600 mg in the evening. olanzapine 2021-1 Yes Take by [employer] ers (ZYPREXA 2-09 mouth 2 ity of ORAL) 14:26: (two) [place] [address] times Medical daily. Branch Prescribed by [facility] - Apr 2019 gabapentin 2021-1 Yes 600mg Take 600 [place] 600 mg 2-09 mg by ity of tablet 14:26: mouth in [place] [address] the Medical morning Branch and 600 mg at noon and 600 mg in the evening. olanzapine 2021- Yes Take by [employer] ers (ZYPREXA 2-09 mouth 2 ity of ORAL) 14:26: (two) [place] [address] times Medical daily. Branch Prescribed by [facility] Apr 2019 gabapentin 2021-1 Yes 600mg Take 600 [place] 600 mg 2-09 mg by ity of tablet 14:26: mouth in [place] [address] the Medical morning Branch and 600 mg at noon and 600 mg in the evening. olanzapine 2021- Yes Take by [employer] ers (ZYPREXA 2-09 mouth 2 ity of ORAL) 14:26: (two) [place] [address] times Medical daily. Branch Prescribed by [facility] Apr 2019 gabapentin 2021-1 Yes 600mg Take 600 [place] 600 mg 2-09 mg by ity of tablet 14:26: mouth in [place] [address] the Medical morning Branch and 600 mg at noon and 600 mg in the evening. olanzapine 2021-1 Yes Take by [employer] ers (ZYPREXA 2-09 mouth 2 ity of ORAL) 14:26: (two) [place] [address] times Medical daily. Branch Prescribed by [facility] Apr 2019 gabapentin 2-1 Yes 600mg Take 600 [place] 600 mg 2-09 mg by ity of tablet 14:26: mouth in [place] [address] the Medical morning Branch and 600 mg at noon and 600 mg in the evening. olanzapine 2-1 Yes Take by [employer] ers (ZYPREXA 2-09 mouth 2 ity of ORAL) 14:26: (two) [place] [address] times Medical daily. Branch Prescribed by [facility] - Apr 2019 gabapentin 2021-1 Yes 600mg Take 600 [place] 600 mg 2-09 mg by ity of tablet 14:26: mouth in [place] [address] the Medical morning Branch and 600 mg at noon and 600 mg in the evening. olanzapine 2021- Yes Take by [facility] ers (ZYPREXA 2-09 mouth 2 ity of ORAL) 14:26: (two) [place] [address] times Medical daily. Branch Prescribed by [facility] - Apr 2019 gabapentin 2021-1 Yes 600mg Take 600 [place] 600 mg 2-09 mg by ity of tablet 14:26: mouth in [place] [address] the Medical morning Branch and 600 mg at noon and 600 mg in the evening. olanzapine 2021- Yes Take by [facility] ers (ZYPREXA 2-09 mouth 2 ity of ORAL) 14:26: (two) [place] [address] times Medical daily. Branch Prescribed by [facility] Apr 2019 gabapentin 2021-1 Yes 600mg Take 600 [place] 600 mg 2-09 mg by ity of tablet 14:26: mouth in [place] [address] the Medical morning Branch and 600 mg at noon and 600 mg in the evening. olanzapine 2021- Yes Take by [facility] ers (ZYPREXA 2-09 mouth 2 ity of ORAL) 14:26: (two) [place] [address] times Medical daily. Branch Prescribed by [facility] - Apr 2019 gabapentin 2021-1 Yes 600mg Take 600 [place] 600 mg 2-09 mg by ity of tablet 14:26: mouth in [place] [address] the Medical morning Branch and 600 mg at noon and 600 mg in the evening. SERTraline 2021-2021- No 100mg Take 100 U nivers 100 mg 11-06 12-09 mg by ity of tablet 14:19: 00:00 mouth [place] 22 :00 daily. Medical Prescribed Branch by [facility] Apr 2019 SERTraline 2021-2021- No 100mg Take 100 U nivers 100 mg 2-09 12-09 mg by ity of tablet 14:19: 00:00 mouth [place] 22 :00 daily. Medical Prescribed Branch by [facility] - Apr 2019 nicotine 2021- Yes 1{patch 1 Patch, [place] juan (NICODERM) 2-06 } Topical, ity o f 21 mg/24 hr 19:45: Administer [place] patch 1 00 over 24 Medical Patch Hours, Branch Q24H, First dose on Thu09/02/22 at 1345, Until Discontinu ed, Routine hydrOXYzine 2021-09 No 10mg 10 mg, Uni vers (ATARAX) 2-06 12-06 Oral, ity of tablet 10 19:30: 18:49 ONCE, 1 [place] mg 00 :00 dose, On Medical Tue Branch 09/02/22 at 1330, Routine gabapentin 2021-09 Yes 600mg Take 600 [place] 600 mg 2-06 mg by ity of tablet 17:34: mouth in [place] [address] the Medical morning Branch and 600 mg at noon and 600 mg in the evening. gabapentin 2021-09 Yes 600mg Take 600 [place] 600 mg 2-06 mg by ity of tablet 17:34: mouth in [place] 50 the Medical morning Branch and 600 mg at noon and 600 mg in the evening. gabapentin 2021-09 Yes 600mg Take 600 [place] 600 mg 2-06 mg by ity of tablet 17:34: mouth in [place] 50 the Medical morning Branch and 600 mg at noon and 600 mg in the evening. OXcarbazepi 2021-09 Yes 600mg Take 600 U nivers ne 600 mg 2-06 mg by ity of tablet 15:34: mouth 2 [place] 48 (two) Medical times Branch daily. SERTraline 2021-09 Yes 100mg Take 100 [place] 100 mg 2-06 mg by ity of tablet 15:34: mouth [place] 48 daily. Medical Prescribed Branch by [facility] - Apr 2019 olanzapine 2021-09 Yes Take by [facility] ers (ZYPREXA 2-06 mouth 2 ity of ORAL) 15:34: (two) [place] 48 times Medical daily. Branch Prescribed by [facility] - Apr 2019 LORazepam 1 2021-09 Yes [...] [place] 48 daily. Medical Prescribed Branch by [facility] - Apr 2019 olanzapine 2021-09 Yes Take by [facility] ers (ZYPREXA 2-06 mouth 2 ity of ORAL) 15:34: (two) [place] 48 times Medical daily. Branch Prescribed by [facility] - Apr 2019 LORazepam 1 2021-09 Yes [...] [place] 48 daily. Medical Prescribed Branch by [facility] - Apr 2019 olanzapine 2021-09 Yes Take by [facility] ers (ZYPREXA 2-06 mouth 2 ity of ORAL) 15:34: (two) [place] 48 times Medical daily. Branch Prescribed by [facility] no - Apr 2019 LORazepam 1 2021-09 Yes [...] [place] 48 daily. Medical [facility] [facility] olanzapine 2021-09 Yes Take by Univ ers (ZYPREXA 2-06 mouth 2 ity of ORAL) 15:34: (two) [place] 48 times Medical daily. Branch [facility] [facility] - [facility] gabapentin 2021-09 Yes 600mg Take 600 [place] 600 mg 2-06 mg by ity of tablet 15:34: mouth in [place] 48 the Medical morning Branch and 600 mg at noon and 600 mg in the evening. LORazepam 1 2021-09 Yes 1mg Take 1 mg U nivers mg Cp24 2-06 by mouth 2 ity of 15:34: (two) [place] 48 times Medical daily. [place] LORazepam 2021-09 Yes 1mg 1 mg, Univers (ATIVAN) 2-06 Oral, QAM, ity o f tablet 1 mg 15:00: First dose [place] 00 on [facility] 09/02/22 at [place] 0900, Until Discontinu ed, Routine OLANZapine 2021-09 Yes 15mg 15 mg, Unive rs (ZyPREXA) 2-06 Oral, QHS, ity of tablet 15 03:00: [place] 00 on [facility] 09/01/22 at [place] 2100, Until Discontinu ed, Routine PARoxetine 2021-09 Yes 20mg 20 mg, Unive rs (PAXIL) 2-06 Oral, QHS, ity of tablet 20 03:00: [place] 00 on [facility] 09/01/22 at [place] 2100, Until Discontinu ed, Routine gabapentin 2021-09 Yes 600mg 600 mg, Uni vers (NEURONTIN) 2-06 Oral, TID, it y of tablet 600 02:00: First [place] mg 00 on [facility] 09/01/22 at Branch 2000, Until Discontinu ed, Routine acetaminoph 2021-09 No 325mg 325 mg, U nivers en 2-05 12-06 Oral, ity of (TYLENOL) 23:49: 00:20 ONCE, 1 [place] tablet 325 00 :00 dose, On Medic al mg [facility] 09/01/22 at 1800, Routine clonazePAM 2021-09 Yes 1mg 1 mg, Univer s (KLONOPIN) 11-02 Oral, Q8H, ity of tablet 1 mg 16:15: First dose [place] 00 (after Medical last Branch modificati on) on Thu09/01/22 at 1015, Until Discontinu ed, Routine ketamine 2021-09- No 50mg 50 mg, Univer s (KETALAR) 11-01 Slow IV ity of injection 23:30: 07:04 Push, [place] 50 mg 00 :00 ONCE, 1 Medical dose, On Branch [place] 08/31/22 at 1730, Routine clonazePAM 2021-09 No 1mg 1 mg, Unive rs 0.1 mg/mL 11-01 Oral, TID, ity of oral 20:00: 14:29 First dose [place] suspension 00 :11 on [place] Medical 1 mg 08/31/22 at Branch 1400, Until Discontinu ed, Routine midazolam 2021-09- No 1mg/h 1-10 mg/hr Univers (VERSED) 11-01 (1-10 ity of STD 50mg in 16:14: 11:18 mL/hr), IV [place] NaCl 0.9% 18 :51 Infusion, Medic al (NS) 50 mL TITRATE, Branc h infusion Sedation-R RTU ASS score (0 to -1), Sedation-R ASS score (-2 to -3), If too agitated may use a rass of -3, Starting on [place] 08/31/22 at 1014
In itiate infusion at 1 mg/hr and titrate by 1 mg/hr every 3 minutes to 10 minutes to goal sedation score. Maximum dose = 10 mg/hr.&nbs p; If goal not maintained at maximum allowed dose, contact prescriber .
enoxaparin 2021-09 Yes 40mg 40 mg, Unive rs (LOVENOX) 11-01 Subcutaneo ity of injection 15:00: [place], DAILY, [place] 40 mg 00 First dose Medical on [place] Branch 08/31/22 at 0900, Until Discontinu ed, Routine dexMEDEtomi 2021-09 No .2ug/kg 0.2-1.5 Univers dine 200 11-01-06 /h mcg/kg/hr ity o f mcg in 0.9 14:33: 00:39 ?61 kg [place] % NaCl 50 19 :35 (3.05-22.8 Medi patrick mL 75 mL/hr, Branch (PRECEDEX) rounded to RTU IV 3.05-22.88 infusion mL/hr), IV Infusion, TITRATE, Sedation-R ASS score (0 to -1), Starting on [place] 08/31/22 at 0833
In itiate infusion at 0.2 mcg/kg/hr and titrate by 0.1 mcg/kg/hr every 30 minutes to goal sedation score. Maximum dose = 1.5 mcg/kg/hr. If goal not maintained at maximum allowed dose, contact prescriber .
fentaNYL PF 2021-09- No 25ug/h 25-200 U nivers (SUBLIMAZE) 11-01 12-05 mcg/hr ity o f STD 2,500 08:03: 11:18 (2.5-20 [place] mcg in NaCl 47 :51 mL/hr), IV Me dical 0.9% (NS) Infusion, Branc h 250 mL TITRATE, infusion CPOT/Pain RTU Scale Goals Determined by Provider, Starting on [place] 08/31/22 at 0203
In itiate infusion at [...] 1 Medical 50 mcg dose, On Branch [place] 08/31/22 at 0200, Routine propofoL IV 2021-09- No 5ug/kg/ 5-50 [place] infusion 11-01 min mcg/kg/min ity of 07:24: 07:09 ?61 kg [place] 17 :53 (1.83-18.3 Medical mL/hr), IV Branch Infusion, TITRATE, Sedation-R ASS score (0 to -1), Starting on [place] 08/31/22 at 0124
In itiate infusion at [...] al s, ONCE, 1 Branch dose, On 08/31/22 at 0115, Routine midazolam 2021-09- No 1mg/h 1-10 mg/hr Univers (VERSED) 11-01 (1-10 ity of STD 50mg in 06:26: 16:14 mL/hr), IV [place] NaCl 0.9% 10 :53 Infusion, Medic al (NS) 50 mL TITRATE, Branc h infusion Sedation-R RTU ASS score (0 to -1), Starting on 08/31/22 at 0026
In itiate infusion at 1 mg/hr and titrate by 1 mg/hr every 3 minutes to 10 minutes to goal sedation score. Maximum dose = 10 mg/hr.&nbs p; If goal not maintained at maximum allowed dose, contact prescriber .
gabapentin 2021-09- No Take by Uni vers 300 mg/6 mL 10-3103 mouth 2 ity of (6 mL) 23:09: 00:00 (two) [place] solution 11 :00 times Medical daily. Branch prescribed at [facility] [place] [facility] no summer 2018 PARoxetine 2021-09 Yes 20mg Take 20 mg U nivers 20 mg 1-21 by mouth ity of tablet 00:00: in the morning. Medical Branch LORazepam 1 2021-09 Yes 1mg Take 1 mg U nivers mg tablet 1-21 by mouth ity of 00:00: in the morning. Medical Branch PARoxetine 2021-09 Yes 20mg Take 20 mg U nivers 20 mg 1-21 by mouth ity of tablet 00:00: in the [place] 00 morning. Medical Branch LORazepam 1 2021-09 Yes 1mg Take 1 mg U nivers mg tablet 1-21 by mouth ity of 00:00: in the [place] morning. Medical Branch PARoxetine 2021- Yes 20mg Take 20 mg U nivers 20 mg 1-21 by mouth ity of tablet 00:00: in the [place] morning. Medical Branch LORazepam 1 2021- Yes 1mg Take 1 mg U nivers mg tablet 1-21 by mouth ity of 00:00: in the [place] morning. Medical Branch PARoxetine 2021- Yes 20mg Take 20 mg U nivers 20 mg 1-21 by mouth ity of tablet 00:00: in the [place] morning. Medical Branch LORazepam 1 2021-09 Yes 1mg Take 1 mg U nivers mg tablet 1-21 by mouth ity of 00:00: in the [place] morning. Medical Branch PARoxetine 2021- Yes 20mg Take 20 mg U nivers 20 mg 1-21 by mouth ity of tablet 00:00: in the [place] morning. Medical Branch LORazepam 1 2021-09 Yes 1mg Take 1 mg U nivers mg tablet 1-21 by mouth ity of 00:00: in the [place] morning. Medical Branch PARoxetine 2021- Yes 20mg Take 20 mg U nivers 20 mg 1-21 by mouth ity of tablet 00:00: in the [place] 00 morning. Medical Branch LORazepam 1 2021-09 Yes 1mg Take 1 mg U nivers mg tablet 1-21 by mouth ity of 00:00: in the [place] morning. Medical Branch PARoxetine 2021- Yes 20mg Take 20 mg U nivers 20 mg 1-21 by mouth ity of tablet 00:00: in the [place] 00 morning. Medical Branch LORazepam 1 2021- Yes 1mg Take 1 mg U nivers mg tablet 1-21 by mouth ity of 00:00: in the [place] 00 morning. Medical Branch PARoxetine 2021- Yes 20mg Take 20 mg U nivers 20 mg 1-21 by mouth ity of tablet 00:00: in the [place] 00 morning. Medical Branch LORazepam 1 2021- Yes 1mg Take 1 mg U nivers mg tablet 1-21 by mouth ity of 00:00: in the [place] 00 morning. Medical Branch PARoxetine 2021- Yes 20mg Take 20 mg U nivers 20 mg 1-21 by mouth ity of tablet 00:00: in the [place] 00 morning. Medical Branch LORazepam 2021-09 Yes 1mg Take 1 mg U nivers mg tablet 1-21 by mouth ity of 00:00: in the [place] 00 morning. Medical Branch PARoxetine 2021- Yes 20mg Take 20 mg U nivers 20 mg 1-21 by mouth ity of tablet 00:00: in the [place] morning. Medical Branch LORazepam 1 2021-09 Yes 1mg Take 1 mg U nivers mg tablet 1-21 by mouth ity of 00:00: in the [place] morning. Medical Branch PARoxetine 2021- Yes 20mg Take 20 mg U nivers 20 mg 1-21 by mouth ity of tablet 00:00: in the [place] morning. Medical Branch LORazepam 1 2021-09 Yes 1mg Take 1 mg U nivers mg tablet 1-21 by mouth ity of 00:00: in the [place] morning. Medical Branch PARoxetine 2021- Yes 20mg Take 20 mg U nivers 20 mg 1-21 by mouth ity of tablet 00:00: in the [place] morning. Medical Branch LORazepam 1 2021-09 Yes 1mg Take 1 mg U nivers mg tablet 1-21 by mouth ity of 00:00: in the [place] morning. Medical Branch PARoxetine 2021- Yes 20mg Take 20 mg U nivers 20 mg 1-21 by mouth ity of tablet 00:00: in the [place] morning. Medical Branch LORazepam 1 2021-09 Yes 1mg Take 1 mg U nivers mg tablet 1-21 by mouth ity of 00:00: in the [place] morning. Medical Branch PARoxetine 2021- Yes 20mg Take 20 mg U nivers 20 mg 1-21 by mouth ity of tablet 00:00: in the [place] 00 morning. Medical Branch LORazepam 1 2021-09 Yes 1mg Take 1 mg U nivers mg tablet 1-21 by mouth ity of 00:00: in the [place] 00 morning. Medical Branch PARoxetine 2021- Yes 20mg Take 20 mg U nivers 20 mg 1-21 by mouth ity of tablet 00:00: in the [place] 00 morning. Medical Branch LORazepam 1 2021-09 Yes 1mg Take 1 mg U nivers mg tablet 1-21 by mouth ity of 00:00: in the [place] 00 morning. Medical Branch PARoxetine 2021- Yes 20mg Take 20 mg U nivers 20 mg 1-21 by mouth ity of tablet 00:00: in the [place] 00 morning. Medical Branch LORazepam 2021-09 Yes 1mg Take 1 mg U nivers mg tablet 1-21 by mouth ity of 00:00: in the [place] 00 morning. Medical Branch PARoxetine 2021- Yes 20mg Take 20 mg U nivers 20 mg 1-21 by mouth ity of tablet 00:00: in the [place] 00 morning. Medical Branch LORazepam 1 2021-09 Yes 1mg Take 1 mg U nivers mg tablet 1-21 by mouth ity of 00:00: in the [place] 00 morning. Medical Branch PARoxetine 2021- Yes 20mg Take 20 mg U nivers 20 mg 1-21 by mouth ity of tablet 00:00: in the [place] 00 morning. Medical Branch LORazepam 2021-09 Yes 1mg Take 1 mg U nivers mg tablet 1-21 by mouth ity of 00:00: in the [place] 00 morning. Medical Branch SERTraline 2020-0 Yes 100mg Take 100 [place] 100 mg 1-25 mg by ity of tablet 18:52: mouth [place] 12 daily. Medical Prescribed Branch by [facility] - Apr 2019 SERTraline 2020-0 Yes 100mg Take 100 [place] 100 mg 1-25 mg by ity of tablet 18:52: mouth [place] 12 daily. Medical Prescribed Branch by [facility] [facility] - Apr 2019 SERTraline 2020-0 Yes 100mg Take 100 Un juan 100 mg 1-25 mg by ity of tablet 18:52: mouth [place] 12 daily. Medical Prescribed Branch by [facility] - Apr 2019 olanzapine 2020-0 Yes Take by [facility] ers (ZYPREXA 1-25 mouth 2 ity of ORAL) 18:52: (two) [place] 09 times Medical daily. Branch Prescribed by [facility] - Apr 2019 olanzapine 2020-0 Yes Take by [facility] ers (ZYPREXA 1-25 mouth 2 ity of ORAL) 18:52: (two) [place] 09 times Medical daily. Branch Prescribed by [facility] no - Apr 2019 olanzapine 2020-0 Yes Take by [facility] ers (ZYPREXA 1-25 mouth 2 ity of ORAL) 18:52: (two) [place] 09 times Medical daily. Branch Prescribed by [facility] no - Apr 2019 gabapentin 2020-0 Yes Take by Univ ers 300 mg/6 mL 1-25 mouth 2 ity o f (6 mL) 18:52: (two) [place] solution 07 times Medical daily. Branch prescribed at [facility] [place] [facility] no summer 2018 gabapentin 2020-0 Yes Take by Univ ers 300 mg/6 mL 1-25 mouth 2 ity o f (6 mL) 18:52: (two) [place] solution 07 times Medical daily. Branch prescribed at [facility] [place] [facility] no summer 2018 gabapentin 2020-0 Yes Take by Univ ers 300 mg/6 mL 1-25 mouth 2 ity o f (6 mL) 18:52: (two) [place] solution 07 times Medical daily. Branch prescribed at [facility] [place] [facility] no summer 2018 OXcarbazepi 2020-0 Yes 600mg [...] Medical tablet times Branch daily. Sertraline Sertraline 2020-0 Yes JAZMYN TEDDY Take 25 mg [facility] HCl - 50 MG HCl - 50 MG 1-23 M.D. po daily x Physici Oral Tablet Oral Tablet 00:00: 15 days ans 00 and then increase it to 50 mg po daily Sertraline Sertraline 2018- Yes JAZMYN TEDDY 1 QD TAKE ONE [facility] HCl - 100 HCl - 100 0-23 M.D. (1) Physi ci MG Oral MG Oral 00:00: TABLET(S) an s Tablet Tablet 00 BY MOUTH ONCE A DAY. OLANZapine OLANZapine 2018- Yes JAZMYN TEDDY 1 TAKE 1 UT [...] MOUTH TWICE A DAY. busPIRone 2018- Yes [id number] 15mg Take 1 Un juan 15 mg 6-06 tablet by ity of tablet 00:00: mouth 2 [place] 00 (two) Medical times Branch daily. DULoxetine Yes [id number] 60mg Take 1 U nivers 60 mg 6-04 capsule by ity of capsule 00:00: mouth [place] 00 daily. Medical Branch DULoxetine 2018- Yes [id number] 30mg Take 1 U nivers 30 mg 6-04 capsule by ity of capsule 00:00: mouth [place] 00 daily. Medical Branch OXcarbazepi 2018- Yes 600mg Take 600 U nivers ne 5-29 mg by ity of (TRILEPTAL) 19:48: mouth 2 Sathya as 600 mg 44 (two) Medical tablet times Branch daily. traZODONE 2018- Yes [id number] 25mg Take 0.5 Univers 50 mg 5-29 [...] W-135) TDAP 2014-05-25 Completed University of 00:00:00 [facility] Meningococcal 2014-05-25 Completed University of Polysaccharide 00:00:00 [place] [facility]i patrick (groups A, C, Y and Branc h W-135) conjugate vaccine (MCV4P) HPV 2014-05-25 Completed University of 00:00:00 [facility] TDAP 2014-05-25 Completed University of 00:00:00 [facility] Meningococcal 2014-05-25 Completed University of Polysaccharide 00:00:00 [place] [facility] pat[facility] (groups A, C, Y and Branc h W-135) conjugate vaccine (MCV4P) HPV 2014-05-25 Completed University of 00:00:00 [facility] TDAP 2014-05-25 Completed University of 00:00:00 [facility] Meningococcal 2014-05-25 Completed University of Polysaccharide 00:00:00 [place] [facility] (groups A, C, Y and Branc h W-135) conjugate vaccine (MCV4P) HPV 2014-05-25 Completed University of 00:00:00 [facility] TDAP 2014-05-25 Completed University of 00:00:00 [facility] Meningococcal 2014-05-25 Completed University of Polysaccharide 00:00:00 [place] [facility] (groups A, C, Y and Branc h W-135) conjugate vaccine (MCV4P) HPV 2014-05-25 Completed University of 00:00:00 [facility] Branch TDAP 2014-05-25 Completed University of 00:00:00 [facility] Meningococcal 2014-05-25 Completed University of Polysaccharide 00:00:00 [place] [facility] pat[facility] (groups A, C, Y and Branc h W-135) conjugate vaccine (MCV4P) Tdap 2014-05-25 Completed University of 00:00:00 [facility] Branch HPV 2014-05-25 Completed University of 00:00:00 [facility] Meningococcal 2014-05-25 Completed University of Polysaccharide 00:00:00 [place] [facility] pat[facility] (groups A, C, Y and Branc h W-135) conjugate vaccine (MCV4P) HPV 2014-05-25 Completed University of 00:00:00 [facility] TDAP 2014-05-25 Completed University of 00:00:00 [facility] Meningococcal 2014-05-25 Completed University of Polysaccharide 00:00:00 [place] [facility] (groups A, C, Y and Branc h W-135) conjugate vaccine (MCV4P) HPV 2014-05-25 Completed University of 00:00:00 [facility] TDAP 2014-05-25 Completed University of 00:00:00 [facility] Meningococcal 2014-05-25 Completed University of Polysaccharide 00:00:00 [place] [facility] (groups A, C, Y and Branc h W-135) conjugate vaccine (MCV4P) HPV 2014-05-25 Completed University of 00:00:00 [facility] TDAP 2014-05-25 Completed University of 00:00:00 [facility] Meningococcal 2014-05-25 Completed University of Polysaccharide 00:00:00 [place] [facility] (groups A, C, Y and Branc h W-135) conjugate vaccine (MCV4P) HPV 2014-05-25 Completed University of 00:00:00 [facility] Branch TDAP 2014-05-25 Completed University of 00:00:00 [facility] Meningococcal 2014-05-25 Completed University of Polysaccharide 00:00:00 [place] [facility] (groups A, C, Y and Branc h W-135) conjugate vaccine (MCV4P) HPV 2014-05-25 Completed University of 00:00:00 [facility] Branch TDAP 2014-05-25 Completed University of 00:00:00 [facility] Meningococcal 2014-05-25 Completed University of Polysaccharide 00:00:00 [place] [facility] (groups A, C, Y and Branc h W-135) conjugate vaccine (MCV4P) HPV 2014-05-25 Completed University of 00:00:00 [facility] Branch TDAP 2014-05-25 Completed University of 00:00:00 [facility] Branch Meningococcal 2014-05-25 Completed University of Polysaccharide 00:00:00 [place] [facility] (groups A, C, Y and Branc h W-135) conjugate vaccine (MCV4P) HPV 2014-05-25 Completed University of 00:00:00 [facility] Branch TDAP 2014-05-25 Completed University of 00:00:00 [facility] Meningococcal 2014-05-25 Completed University of Polysaccharide 00:00:00 [place] [facility] (groups A, C, Y and Branc h W-135) conjugate vaccine (MCV4P) HPV 2014-05-25 Completed University of 00:00:00 [facility] Branch TDAP 2014-05-25 Completed University of 00:00:00 [facility] Meningococcal 2014-05-25 Completed University of Polysaccharide 00:00:00 [place] [facility] (groups A, C, Y and Branc h W-135) conjugate vaccine (MCV4P) HPV 2014-05-25 Completed University of 00:00:00 [facility] TDAP 2014-05-25 Completed University of 00:00:00 [facility] Branch Meningococcal 2014-05-25 Completed University of Polysaccharide 00:00:00 [place] [facility] (groups A, C, Y and Branc h W-135) conjugate vaccine (MCV4P) HPV 2014-05-25 Completed University of 00:00:00 [facility] Branch Tdap 2014-05-25 Completed University of 00:00:00 [facility] Branch TDAP 2014-05-25 Completed University of 00:00:00 [facility] Branch Meningococcal 2014-05-25 Completed University of Polysaccharide 00:00:00 [place] [facility] (groups A, C, Y and Branc h W-135) conjugate vaccine (MCV4P) HPV 2014-05-25 Completed University of 00:00:00 [facility] Branch Meningococcal 2014-05-25 Completed University of Polysaccharide 00:00:00 [place] [facility] (groups A, C, Y and Branc h W-135) conjugate vaccine (MCV4P) HPV 2014-05-25 Completed University of 00:00:00 [facility] Branch TDAP 2014-05-25 Completed University of 00:00:00 [facility] Meningococcal 2014-05-25 Completed University of Polysaccharide 00:00:00 [place] [facility] (groups A, C, Y and Branc h W-135) conjugate vaccine (MCV4P) HPV 2014-05-25 Completed University of 00:00:00 [facility] Branch TDAP 2014-05-25 Completed University of 00:00:00 [facility] Meningococcal 2014-05-25 Completed University of Polysaccharide 00:00:00 [place] [facility] (groups A, C, Y and Branc h W-135) conjugate vaccine (MCV4P) HPV 2014-05-25 Completed University of 00:00:00 [facility] TDAP 2014-05-25 Completed University of 00:00:00 [facility] Meningococcal 2014-05-25 Completed University of Polysaccharide 00:00:00 [place] [facility] (groups A, C, Y and Branc h W-135) conjugate vaccine (MCV4P) HPV 2014-05-25 Completed University of 00:00:00 [facility] TDAP 2014-05-25 Completed University of 00:00:00 [facility] Meningococcal 2014-05-25 Completed University of Polysaccharide 00:00:00 [place] [facility] (groups A, C, Y and Branc h W-135) conjugate vaccine (MCV4P) HPV 2014-05-25 Completed University of 00:00:00 [facility] Branch TDAP 2014-05-25 Completed University of 00:00:00 [facility] Meningococcal 2014-05-25 Completed University of Polysaccharide 00:00:00 [place] [facility] (groups A, C, Y and Branc h W-135) conjugate vaccine (MCV4P) HPV 2014-05-25 Completed University of 00:00:00 [facility] TDAP 2014-05-25 Completed University of 00:00:00 [facility] Meningococcal 2014-05-25 Completed University of Polysaccharide 00:00:00 [place] [facility] (groups A, C, Y and Branc h W-135) conjugate vaccine (MCV4P) HPV 2014-05-25 Completed University of 00:00:00 [facility] TDAP 2014-05-25 Completed University of 00:00:00 [facility] Meningococcal 2014-05-25 Completed University of Polysaccharide 00:00:00 [place] [facility] pat[facility] (groups A, C, Y and Branc h W-135) conjugate vaccine (MCV4P) HPV 2014-05-25 Completed University of 00:00:00 [facility] Tdap 2014-05-25 Completed University of 00:00:00 [facility] Meningococcal 2014-05-25 Completed University of Polysaccharide 00:00:00 [place] [facility] (groups A, C, Y and Branc h W-135) conjugate vaccine (MCV4P) HPV 2014-05-25 Completed University of 00:00:00 [facility] Branch TDAP 2014-05-25 Completed University of 00:00:00 [facility] Meningococcal 2014-05-25 Completed University of Polysaccharide 00:00:00 [place] [facility] (groups A, C, Y and Branc h W-135) conjugate vaccine (MCV4P) HPV 2014-05-25 Completed University of 00:00:00 [facility] influenza virus 2009-08-09 Completed [facility] vaccine, unspecified 00:00:00 formulation H1n1 Vaccine 2009-08-09 Completed University o f 00:00:00 [facility] Influenza Virus 2009-08-09 Completed Universit y of Vaccine 00:00:00 [facility] H1n1 Vaccine 2009-08-09 Completed University o f 00:00:00 [facility] Influenza Virus 2009-08-09 Completed Universit y of Vaccine 00:00:00 [facility] H1n1 Vaccine 2009-08-09 Completed University o f 00:00:00 [facility] Influenza Virus 2009-08-09 Completed Universit y of Vaccine 00:00:00 [facility] H1n1 Vaccine 2009-08-09 Completed University o f 00:00:00 [facility] Influenza Virus 2009-08-09 Completed Universit y of Vaccine 00:00:00 [facility] Branch H1n1 Vaccine 2009-08-09 Completed University o f 00:00:00 [facility] Influenza Virus 2009-08-09 Completed Universit y of Vaccine 00:00:00 [facility] H1n1 Vaccine 2009-08-09 Completed University o f 00:00:00 [facility] Influenza Virus 2009-08-09 Completed Universit y of Vaccine 00:00:00 [facility] H1n1 Vaccine 2009-08-09 Completed University o f 00:00:00 [place] [facility] Influenza Virus 2009-08-09 Completed Universit y of Vaccine 00:00:00 [place] [facility] H1n1 Vaccine 2009-08-09 Completed University o f 00:00:00 [place] [facility] Influenza Virus 2009-08-09 Completed Universit y of Vaccine 00:00:00 [place] [facility] H1n1 Vaccine 2009-08-09 Completed University o f 00:00:00 [place] [facility] Influenza Virus 2009-08-09 Completed Universit y of Vaccine 00:00:00 [place] [facility] H1n1 Vaccine 2009-08-09 Completed University o f 00:00:00 [place] [facility] Influenza Virus 2009-08-09 Completed Universit y of Vaccine 00:00:00 [place] [facility] H1n1 Vaccine 2009-08-09 Completed University o f 00:00:00 [place] [facility] Influenza Virus 2009-08-09 Completed Universit y of Vaccine 00:00:00 [place] [facility] H1n1 Vaccine 2009-08-09 Completed University o f 00:00:00 [place] [facility] Influenza Virus 2009-08-09 Completed Universit y of Vaccine 00:00:00 [place] [facility] H1n1 Vaccine 2009-08-09 Completed University o f 00:00:00 [place] [facility] Influenza Virus 2009-08-09 Completed Universit y of Vaccine 00:00:00 [place] [facility] H1n1 Vaccine 2009-08-09 Completed University o f 00:00:00 [place] [facility] Influenza Virus 2009-08-09 Completed Universit y of Vaccine 00:00:00 [place] [facility] H1n1 Vaccine 2009-08-09 Completed University o f 00:00:00 [place] [facility] H1n1 Vaccine 2009-08-09 Completed University o f 00:00:00 [place] [facility] Influenza Virus 2009-08-09 Completed Universit y of Vaccine 00:00:00 [place] [facility] Influenza Virus 2009-08-09 Completed Universit y of Vaccine 00:00:00 [place] [facility] Branch H1n1 Vaccine 2009-08-09 Completed University o f 00:00:00 [place] [facility] Influenza Virus 2009-08-09 Completed Universit y of Vaccine 00:00:00 [place] [facility] H1n1 Vaccine 2009-08-09 Completed University o f 00:00:00 [place] [facility] Influenza Virus 2009-08-09 Completed Universit y of Vaccine 00:00:00 [place] [facility] H1n1 Vaccine 2009-08-09 Completed University o f 00:00:00 [place] [facility] Influenza Virus 2009-08-09 Completed Universit y of Vaccine 00:00:00 [facility] H1n1 Vaccine 2009-08-09 Completed University o f 00:00:00 [facility] Branch Influenza Virus 2009-08-09 Completed Universit y of Vaccine 00:00:00 [facility] Branch H1n1 Vaccine 2009-08-09 Completed University o f 00:00:00 [facility] Branch Influenza Virus 2009-08-09 Completed Universit y of Vaccine 00:00:00 [facility] Branch H1n1 Vaccine 2009-08-09 Completed University o f 00:00:00 [facility] Influenza Virus 2009-08-09 Completed Universit y of Vaccine 00:00:00 [facility] Branch H1n1 Vaccine 2009-08-09 Completed University o f 00:00:00 [facility] Branch H1n1 Vaccine 2009-08-09 Completed University o f 00:00:00 [facility] Influenza Virus 2009-08-09 Completed Universit y of Vaccine 00:00:00 [facility] Influenza Virus 2009-08-09 Completed Universit y of Vaccine 00:00:00 [facility] Branch H1n1 Vaccine 2009-08-09 Completed University o f 00:00:00 [facility] Influenza Virus 2009-08-09 Completed Universit y of Vaccine 00:00:00 [facility] Branch H1n1 Vaccine 2009-08-09 Completed University o f 00:00:00 [facility] Influenza Virus 2009-08-09 Completed Universit y of Vaccine 00:00:00 [facility] influenza virus 2009-07-04 Completed [facility] vaccine, unspecified 00:00:00 formulation Influenza Virus 2009-07-04 Completed Universit y of Vaccine 00:00:00 [facility] Influenza Virus 2009-07-04 Completed Universit y of Vaccine 00:00:00 [facility] Influenza Virus 2009-07-04 Completed Universit y of Vaccine 00:00:00 [facility] Influenza Virus 2009-07-04 Completed Universit y of Vaccine 00:00:00 [facility] Influenza Virus 2009-07-04 Completed Universit y of Vaccine 00:00:00 [facility] Influenza Virus 2009-07-04 Completed Universit y of Vaccine 00:00:00 [facility] Influenza Virus 2009-07-04 Completed Universit y of Vaccine 00:00:00 [facility] Influenza Virus 2009-07-04 Completed Universit y of Vaccine 00:00:00 [facility] Influenza Virus 2009-07-04 Completed Universit y of Vaccine 00:00:00 [facility] Influenza Virus 2009-07-04 Completed Universit y of Vaccine 00:00:00 [facility] Influenza Virus 2009-07-04 Completed Universit y of Vaccine 00:00:00 [facility] Influenza Virus 2009-07-04 Completed Universit y of Vaccine 00:00:00 [facility] Influenza Virus 2009-07-04 Completed Universit y of Vaccine 00:00:00 [facility] Influenza Virus 2009-07-04 Completed Universit y of Vaccine 00:00:00 [facility] Influenza Virus 2009-07-04 Completed Universit y of Vaccine 00:00:00 [facility] Influenza Virus 2009-07-04 Completed Universit y of Vaccine 00:00:00 [facility] Influenza Virus 2009-07-04 Completed Universit y of Vaccine 00:00:00 [facility] Influenza Virus 2009-07-04 Completed Universit y of Vaccine 00:00:00 [facility] Influenza Virus 2009-07-04 Completed Universit y of Vaccine 00:00:00 [facility] Influenza Virus 2009-07-04 Completed Universit y of Vaccine 00:00:00 [facility] Influenza Virus 2009-07-04 Completed Universit y of Vaccine 00:00:00 [facility] Influenza Virus 2009-07-04 Completed Universit y of Vaccine 00:00:00 [facility] Influenza Virus 2009-07-04 Completed Universit y of Vaccine 00:00:00 [facility] Influenza Virus 2009-07-04 Completed Universit y of Vaccine 00:00:00 [facility] Influenza Virus 2009-07-04 Completed Universit y of Vaccine 00:00:00 [facility] Influenza Virus 2009-07-04 Completed Universit y of Vaccine 00:00:00 [facility] hepatitis A vaccine, 2007-11-17 Completed [facility] [...] Time Observation Value Comments Source Systolic blood 2022-11-28 104 mm[Hg] University of pressure 17:50:00 [facility] Diastolic blood 2022-11-28 52 mm[Hg] University o pressure 17:50:00 [facility] Heart rate 2022-11-28 106 /min University of 17:50:00 [facility] Body height 2022-11-28 172.7 cm University of 17:50:00 [facility] Body weight 2022-11-28 62.551 kg University of 17:50:00 [facility] BMI 2022-11-28 20.97 kg/m2 University of 17:50:00 [facility] Oxygen saturation 2022-11-28 93 /min University of in Arterial blood 17:50:00 [place] [facility] by Pulse oximetry Branch Systolic blood 2022-10-20 108 mm[Hg] University of pressure 14:09:00 [facility] Branch Diastolic blood 2022-10-20 65 mm[Hg] University o f pressure 14:09:00 [facility] Heart rate 2022-10-20 95 /min University of 14:09:00 [facility] Body temperature 2022-10-20 37.06 Jeana University of 14:09:00 [facility] Body height 2022-10-20 172.7 cm University of 14:09:00 [facility] Body weight 2022-10-20 58.968 kg University of 14:09:00 [facility] BMI 2022-10-20 19.77 kg/m2 University of 14:09:00 [facility] Oxygen saturation 2022-10-20 98 /min University of in Arterial blood 14:09:00 [place] [facility] by Pulse oximetry Branch Systolic blood 2022-09-05 101 mm[Hg] University of pressure 20:22:00 [facility] Diastolic blood 2022-09-05 64 mm[Hg] University o f pressure 20:22:00 [facility] Heart rate 2022-09-05 62 /min University of 20:22:00 [facility] Body temperature 2022-09-05 36.33 Jeana University of 20:22:00 [facility] Body height 2022-09-05 172.7 cm University of 20:22:00 [facility] Body weight 2022-09-05 56.337 kg University of 20:22:00 [facility] BMI 2022-09-05 18.88 kg/m2 University of 20:22:00 [facility] Oxygen saturation 2022-09-05 97 /min University of in Arterial blood 20:22:00 [place] [facility] by Pulse oximetry Branch Systolic blood 2022-09-03 110 mm[Hg] University of pressure 05:40:00 [facility] Diastolic blood 2022-09-03 81 mm[Hg] University o f pressure 05:40:00 [facility] Heart rate 2022-09-03 64 /min University of 05:40:00 [facility] Body temperature 2022-09-03 37.22 Jeana University of 05:40:00 [facility] Respiratory rate 2022-09-03 18 /min University of 05:40:00 [facility] Body height 2022-09-03 172.7 cm University 05:40:00 [facility] Body weight 2022-09-03 57.153 kg University 05:40:00 [facility] BMI 2022-09-03 19.16 kg/m2 University 05:40:00 [facility] Oxygen saturation 2022-09-03 100 /min [facility] in Arterial blood 05:40:00 [facility] by Pulse oximetry Branch Systolic blood 2022-09-02 114 mm[Hg] University of pressure 17:17:00 [facility] Diastolic blood 2022-09-02 75 mm[Hg] University o f pressure 17:17:00 [facility] Heart rate 2022-09-02 81 /min University 17:17:00 [facility] Body temperature 2022-09-02 36.61 Jeana University of 17:17:00 [facility] Respiratory rate 2022-09-02 18 /min University of 17:17:00 [facility] Oxygen saturation 2022-09-02 99 /min [facility] in Arterial blood 17:17:00 [facility] by Pulse oximetry Branch Body weight 2022-09-01 61 kg University of 19:40:00 [facility] BMI 2022-09-01 20.45 kg/m2 University of 19:40:00 [facility] Body height 2022-09-01 172.7 cm University of 19:36:00 [facility] BP Systolic 2019-10-20 118 mm[Hg] Location: RUE; [facility] 12:54:00 Position: Sitting BP Diastolic 2019-10-20 53 mm[Hg] Location: R[facility]; [facility] 12:54:00 Position: Sitting Height 2019-10-20 169 cm [facility] 12:54:00 Weight 2019-10-20 125 [lb_av] [facility] 12:54:00 Body Mass Index 2019-10-20 19.85 kg/m2 [facility] Calculated 12:54:00 Heart Rate 2019-10-20 100 /min [facility] 12:54:00 BP Systolic 2019-07-20 93 mm[Hg] Location: [facility]; [facility] 13:06:00 Position: Sitting BP Diastolic 2019-07-20 58 mm[Hg] Location: L[facility]; [facility] 13:06:00 Position: Sitting Height 2019-07-20 66 [...] [facility] 10:53:00 Temperature 2019-02-07 98 [degF] [facility] 10:53:00 Procedures Procedure Date / Time Performing Clinician Source Performed [facility] PATIENT FINANCIAL 2022-11-28 17:49:34 Doctor Unassigned, No [facility] POLICY Name Medical Branch EXTERNAL PROVIDER 2022-11-19 06:01:00 Doctor Unassigned, No [facility] RECORDS Name Medical Branch DEXA AXIAL (HIP AND 2022-09-17 19:58:00 Kenya Fuentes [facility] SPINE) Medical Branch EXTERNAL PROVIDER 2022-09-16 06:01:00 Doctor Unassigned, No [facility] RECORDS Name Medical Branch ASSIGNMENT OF BENEFITS 2022-09-05 19:47:49 Doctor Unassigned, No [facility] Name [facility] Branch COMP. METABOLIC PANEL 2022-09-01 10:44:00 Marilyn Mitchell [facility] ([id number]) [facility] CBC WITH DIFF 2022-09-01 10:44:00 Stephen [facility] XR CHEST 1 VW 2022-09-01 10:15:00 Johann Cormier [facility] CREATINE KINASE 2022-08-31 09:35:00 Ninfa [facility] MAGNESIUM 2022-08-31 09:35:00 Jael Coppola [facility] TROPONIN I 2022-08-31 09:35:00 Jael Coppola [facility] COMP. METABOLIC PANEL 2022-08-31 09:35:00 Jael Coppola [facility] ([id number]) [facility] SALICYLATE 2022-08-31 09:35:00 Jael Coppola [facility] ETHANOL 2022-08-31 09:35:00 Jael Coppola [facility] CBC WITH DIFF 2022-08-31 09:35:00 Anat [facility] URINE DRUG (IMMUNOASSAY) 2022-08-31 09:07:00 Jael Coppola [facility] - COMPREHENSIVE DRUG Medical Bra [facility] SCREEN URINE DRUG (LCMSMS) - 2022-08-31 09:07:00 Jael Coppola [facility] COMPREHENSIVE DRUG PANEL Medical Branch AC PANEL 20 + LACTIC 2022-08-31 09:01:00 Jael Coppola [facility] XR CHEST 1 VW 2022-08-31 05:44:00 Jael Coppola [facility] XR KUB 2022-08-31 05:44:00 Jael Coppola [facility] AUTHORIZATION FOR 2020-08-21 06:01:00 Doctor Unassigned, No [facility] RELEASE OF PHI Name Medical Branch [QLH] CBC (INCLUDES 2019-10-20 00:00:00 [facility] DIFF/PLT) [QL] CMP W/EGFR 2019-10-20 00:00:00 [facility] [QL] LIPID PANEL 2019-10-20 00:00:00 [facility] [QL] TSH, 3RD 2019-10-20 00:00:00 OR Physician s GENERATION [QH] DRUG 2019-07-20 00:00:00 OR Physician s SCREEN,COMPREHENSIVE (URINE) [QH] DRUG 2019-02-24 00:00:00 OR Physician s SCREEN,COMPREHENSIVE (URINE) Encounters Start End Encounter Admission Attending Care Care Encounter Source Date/Time Date/Time Type Type Clinicians Facility Department ID 2023-04-24 2023-04-24 Outpatient R [facility] [id number] Univers 11:00:00 11:00:00 DONTA rojas [facility] 2022-12-30 2022-12-30 Telephone [place] 1.2.840.114 [id number] Univers 00:00:00 00:00:00 [facility] 350.1.13.10 Rl 4.2.7.2.686 [facility] [id number] [facility] AND [facility] [address] [facility] 2022-12-03 2022-12-03 Outpatient R ALFREDO [facility] [id number] Univers 14:00:00 14:00:00 KENYA rojas [facility] 2022-12-02 2022-12-02 Telephone Alfredo [facility] [id number] Univers 00:00:00 00:00:00 Kenya [facility] 350.1.13.10 [place] 4.2.7.2.686 Sathya as NELSON?BLEA [phone] Ri apryl SERNA [address] MEDICAL OFFICE [facility] 2022-11-28 2022-11-28 Outpatient R D[place]AS [facility] [id number] Univers 12:00:00 13:03:08 DONTA rojas [facility] 2022-11-28 2022-11-28 Office [place] [id number] Univers 12:00:00 13:03:08 Visit Donta Bundy HEALTH 350.1.13.10 it y of [place] 4.2.7.2.686 Sathya as NELSON?BLEA [phone] [facility] 220 [facility] OFFICE [facility] 2022-11-28 2022-11-28 Orders Doctor BRITTNEE 1.2.840.114 [id number] Univers 00:00:00 00:00:00 Only Unassigned, FRANCA 350.1.13.10 ity of [facility] 4.2.7.2.686 Sathya as [id number] [address] 2022-11-19 2022-11-19 Orders Doctor BIRTTNEE 1.2.840.114 [id number] Univers 00:00:00 00:00:00 Only Unassigned, FRANCA 350.1.13.10 ity of [facility] 4.2.7.2.686 Sathya as [id number] [address] 2022-10-20 2022-10-20 Outpatient R ALFREDO [facility] [id number] Univers 08:00:00 08:45:36 KENYA rojas [facility] 2022-10-20 2022-10-20 Office AlfredoRUST 1.2.840.114 [id number] Univers 08:00:00 08:45:36 Visit Kenya HEALTH 350.1.13.10 it y of [place] 4.2.7.2.686 Sathya as NELSON?BLEA [id number] [facility] 044 [facility] OFFICE [facility] 2022-09-23 2022-09-23 Telephone AlfredoRUST [id number] Univers 00:00:00 00:00:00 Kenya HEALTH 350.1.13.10 it y of [place] 4.2.7.2.686 Sathya as NELSON?BLEA [id number] [address] MEDICAL OFFICE [facility] 2022-09-17 2022-09-17 [facility] [id number] Univers 13:39:39 23:59:00 KENYA rojas [facility] 2022-09-17 2022-09-17 Hospital [facility] 1.2.840.114 [id number] Univers 13:39:39 23:59:00 Encounter Kenya CHAPPELL 350.1.13.10 ity of [facility] 4.2.7.2.[place] [id number] [facility] [address] 2022-09-16 2022-09-16 Orders Doctor BRITTNEE 1.2.840.114 [id number] Univers 00:00:00 00:00:00 Only Unassigned, FRANCA 350.1.13.10 ity of [facility] 4.2.7.2.686 Sathya as [id number] [address] 2022-09-05 2022-09-05 [facility] [id number] Univers 14:00:00 14:51:04 KENYA rojas [facility] 2022-09-05 2022-09-05 Office [facility] 1.2.840.114 [id number] Univers 14:00:00 14:51:04 Visit Kenya MEDINA 350.1.13.10 it y of [facility] 4.2.7.2.686 Sathya as NELSON?BLEA [phone] [address] MEDICAL OFFICE [facility] 2022-09-05 2022-09-05 Orders Doctor BRITTNEE 1.2.840.114 [id number] Univers 00:00:00 00:00:00 Only Unassigned, FRANCA 350.1.13.10 ity of [facility] 4.2.7.2.686 Sathya as [phone] [facility] [address] 2022-09-03 2022-09-03 Transition MINERVA Steiner 1.2.840.114 [id number] Univers 00:00:00 00:00:00 of Care Marilu MCMULLEN 350.1.13.10 [place] [id number] [facility] [address] 2022-09-02 2022-09-02 Emergency X NATALIE [facility] ERT [id number] Univers 23:43:00 23:56:00 TRINIDAD ity of [facility] 2022-09-02 2022-09-02 Emergency Natalie [facility] 1.2.840.114 [id number] Univers 23:43:00 23:56:00 Trinidad Svetlana CHAPPELL 350.1.13.10 ity of [place].7.2.[place] [id number] [facility] 084 Branch 2022-08-30 2022-09-02 Inpatient X CHAPO [facility] MOOSE [id number] Univers 22:42:00 15:34:00 [place] ity [facility] 2022-08-30 2022-09-02 [facility] Campbell Guerrero 1. 2.840.114 [id number] Univers 22:42:00 15:34:00 Encounter Ayaan Yung 350.1.13.10 ity of [facility] 4.2.7.2.686 [place] [id number] [facility] 093 Branch 2020-08-21 2020-08-21 Orders Doctor BEAULIEU 1.2.840.114 [id number] 00:00:00 00:00:00 Only UnassignedFRANCA 350.1.13.10 [facility] 4.2.7.2.686 [id number] 2020-08-21 2020-08-21 Orders Doctor BEAULIEU 1.2.840.114 [id number] Univers 00:00:00 00:00:00 Only UnassignedFRANCA 350.1.13.10 ity of [facility] 4.2.7.2.686 Sathya as [id number] [facility] [address] 2019-12-08 2019-12-08 Office Oxana [facility] 1.2.840.114 [id number] 13:05:19 14:05:19 Visit Kim MARES 350.1.13.10 [place] 4.2.7.2.686 [place] [id number] 2019-12-08 2019-12-08 Office [facility] 1.2.840.114 [id number] [facility] 13:05:19 14:05:19 Visit Kim N SPECIALTY 350.1.13.10 ity of [place] 4.2.7.2.686 Lisa MCGARRY [id number] [address] 2019-12-08 2019-12-08 Outpatient R [facility] [id number] [facility] 13:15:00 13:15:00 KIM ity o f [facility] 2019-10-20 2019-10-20 Appointmen CHAR ESPINAL Multispecia [id number] [place] 13:00:00 13:00:00 t; JAZMYN ESPINAL M.D. lty - Sarah Rush [facility] 2019-07-20 2019-07-20 Appointmen CHAR ESPINAL Psychiatry [id number] [place] 13:00:00 13:00:00 t; JAZMYN ESPINAL M.D. Outpatient Dwaynei [facility] ans [facility] 2019-06-08 2019-06-08 Telephone [facility] 1.2.840.114 [id number] [facility] 00:00:00 00:00:00 Kim N SPECIALTY 350.1.13.10 ity of [place] 4.2.7.2.686 Lisa MCGARRY [phone] [address] 2019-02-24 2019-02-24 Appointmen CHAR ESPINAL [id number] OR 10:00:00 10:00:00 t; JAZMYN ESPINAL M.D. [place] [facility] SABA, M.D. [facility] 2019-02-07 2019-02-07 Appointmen CHAR VAZQUEZ Multispecia [id number] [place] 10:20:00 10:20:00 t; milton FLETCHER - CHANCE Chirinos APRN, APRN Results Test Description Test Time Test Comments Results Result Comments Source COMP. METABOLIC PANEL ([id number]) 2022-09-01 11:26:16 Test Item Value Reference Range Interpretation Comme nts NA (test code = 6112097118) 138 mmol/L 135-145 K (test code = 3119571980) 3.5 mmol/L 3.5-5.0 S light hemolysis CL (test code = 2217518859) 110 mmol/L 98-108 H CO2 TOTAL (test code = 26 mmol/L 23-31 7604169436) AGAP (test code = 2-16 2012980106) BUN (test code = 9 mg/dL 7-23 Slight hemo lysis 0217928574) GLUCOSE (test code = 99 mg/dL 70-110 7428015443) CREATININE (test code = 0.73 mg/dL 0.60-1.25 9027276232) TOTAL BILI (test code = 0.9 mg/dL 0.1-1.3 0813895301) CALCIUM (test code = 8.2 mg/dL 8.6-10.6 L 3423754448) T PROTEIN (test code = 5.5 g/dL 6.3-8.2 L 7374269216) ALBUMIN (test code = 3.3 g/dL 3.5-5.0 L 8329845133) ALK PHOS (test code = 75 U/L 34-122 Slight hemolysis 5907454870) ALTv (test code = 1742-6) 16 U/L 5-50 AST(SGOT) (test code = 30 U/L 13-40 Sligh t hemolysis 5254858935) eGFR (test code = mL/min/1.73m2 1218425363) KACI (test code = KACI) Association of [...] tests). Lab Interpretation (test Abnormal code = 20043-0) [facility] WITH [id number] 11:03:17 Test Item Value Reference Range Interpretation Comments WBC (test code = See_Comment [Automated 8290-2) message] The sy stem which generated this result transmitted reference range : 4.20 - 10.70 10*3/?L. The reference range was not used to interpret this result as normal/abnormal . RBC (test code = See_Comment L [Automated 229-8) message] The sy stem which generated this [...] RDW-SD (test code = 41.7 fL 38.5-51.6 62114-2) RDW-CV (test code = 13.2 % 12.1-15.4 788-0) PLT (test code = See_Comment [Automated 777-3) message] The sy stem which generated this result transmitted reference range : 150 - 328 10*3/ ?L. The reference r evita was not used to interpret this result as normal/abnormal . MPV (test code = 11.9 fL 9.8-13.0 12937-4) NRBC/100 WBC (test See_Comment [Automat ed code = 5444879205) message] The system which generated this result transmitted reference range : 0.0 - 10.0 /100 WBCs. The refer ence range was not u sed to interpret th is result as normal/abnormal . NRBC x10^3 (test code See_Comment [Auto mated = 9632006079) message] The s ystem which generated this result transmitted reference range : 10*3/?L. The reference range was not used to interpret this result as normal/abnormal . GRAN MAT (NEUT) % 62.3 % (test code = 770-8) IMM GRAN % (test code 0.20 % = 1012813252) LYMPH % (test code = 25.7 % 736-9) MONO % (test code = 8.0 % 5905-5) EOS % (test code = 3.4 % 713-8) BASO % (test code = 0.4 % 706-2) GRAN MAT x10^3(ANC) 5.01 10*3/uL 1.99-6.95 (test code = 5351662815) IMM GRAN x10^3 (test 0.00-0.06 code = 2338570593) LYMPH x10^3 (test code 2.07 10*3/uL 1.09-3.23 = 731-0) MONO x10^3 (test code 0.64 10*3/uL 0.36-1.02 = 742-7) EOS x10^3 (test code = 0.27 10*3/uL 0.06-0.53 711-2) BASO x10^3 (test code 0.03 10*3/uL 0.01-0.09 = 704-7) Lab Interpretation Abnormal (test code = 17643-1) [facility] [id number] 17:58:42 Test Item Value Reference Range Interpretation Comments CK (test code = 6036013859) 180 U/L 33-194 Lab Interpretation (test code = Normal 23943-4) [facility] [id number] 11:09:00 Test Item Value Reference Interpretation Comments Range TROPONIN I (test 0.001 ng/mL See_Comment [Automated code = 6602156026) message] The system which generated this result [...] biotin. Lab Interpretation Normal (test code = 21351-6) [facility]AL[facility]ATE2022-12-04 10:59:14 SALICYLATE<10mg/L111/01/2021 4:59 AM [facility] LABORATORY SERVICESTherapeutic Range: ? Analgesic and Antipyretic Use ? 20-100 mg/L ? ? Anti- Inflammatory Use ? 100-250 mg/L Toxic Range: ? Greater than 300 mg/LUnWhite [facility] CenterETHANOL2022-12-04 10:59:14ALCOHOL<10mg/dL08/31/2022 4:59 AM [facility] LABORATORY SERVICESToxic Greater than or equal to 80 mg/dL. NOTE: Whole blood values are approximately 10% to 15% lower than serum and plasma.[facility] [id number] 10:59:09 Test Item Value Reference Range Interpretation Comments ACETAMINOP (test code = 10.0-30.0 L 1920280013) KACI (test code = KACI) Toxic: Greater than 200 ug/mL @ 4 hour post ingestion or greater than 50 ug/mL @ 12 hour post ingestion Lab Interpretation (test Abnormal code = 07683-2) [facility]UM2022-12-04 10:58:19 Test Item Value Reference Range Interpretation Comments MAGNESIUM (test code = 1794185295) 1.8 mg/dL 1.7-2.4 Lab Interpretation (test code = Normal 45524-0) [facility]. METABOLIC PANEL (15403)2022-08-31 10:58:18 Test Item Value Reference Range Interpretation Comments NA (test code = 141 mmol/L 135-145 0719510533) K (test code = 4.0 mmol/L 3.5-5.0 6234042715) CL (test code = 110 mmol/L 98-108 H 3607460599) CO2 TOTAL (test code = 25 mmol/L 23-31 3187788661) AGAP (test code = 2-16 1431509330) BUN (test code = 5 mg/dL 7-23 L 2220029785) GLUCOSE (test code = 80 mg/dL 70-110 5053105981) CREATININE (test code = 0.71 mg/dL 0.60-1.25 7978448149) TOTAL BILI (test code = 0.5 mg/dL 0.1-1.1 8498109500) CALCIUM (test code = 7.7 mg/dL 8.6-10.6 L 3847020580) T PROTEIN (test code = 5.2 g/dL 6.3-8.2 L 2120976953) ALBUMIN (test code = 3.3 g/dL 3.5-5.0 L 7157533451) ALK PHOS (test code = 71 U/L 34-122 0577489298) ALTv (test code = 16 U/L 5-50 2-6) AST(SGOT) (test code = 23 U/L 13-40 7540364784) eGFR (test code = mL/min/1.73m2 2384211996) KACI (test code = KACI) Association of [...] tests). Lab Interpretation Abnormal (test code = 66601-8) [facility] WITH [id number] 09:52:32 Test Item Value Reference Range Interpretation [...] RDW-SD (test code = 41.1 fL 38.5-51.6 51783-3) RDW-CV (test code = 12.9 % 12.1-15.4 788-0) PLT (test code = See_Comment [Automated 777-3) message] The system which generated this result transmit jordon reference range : 150 - 328 10*3/ ?L. The reference range was not u sed to interpret th is result as normal/abnormal . MPV (test code = 11.1 fL 9.8-13.0 76378-4) NRBC/100 WBC (test See_Comment [Automat ed code = 4133369720) message] The system which generated this result transmit jordon reference range : 0.0 - 10.0 /100 WBCs. The reference range was not used to interpret this result as normal/abnormal . NRBC x10^3 (test code See_Comment [Auto mated = 2642880918) message] The system which generated this result transmit jordon reference range : 10*3/?L. The reference range was not used to interpret this result as normal/abnormal . GRAN MAT (NEUT) % 90.1 % (test code = 770-8) IMM GRAN % (test code 0.40 % = 1311291384) LYMPH % (test code = 5.4 % 736-9) MONO % (test code = 3.8 % 5905-5) EOS % (test code = 0.1 % 713-8) BASO % (test code = 0.2 % 706-2) GRAN MAT x10^3(ANC) 14.75 10*3/uL 1.99-6.95 H (test code = 2118528892) IMM GRAN x10^3 (test 0.06 10*3/uL 0.00-0.06 code = 5400582483) LYMPH x10^3 (test code 0.88 10*3/uL 1.09-3.23 L = 731-0) MONO x10^3 (test code 0.62 10*3/uL 0.36-1.02 = 742-7) EOS x10^3 (test code = 0.06-0.53 L 711-2) BASO x10^3 (test code 0.03 10*3/uL 0.01-0.09 = 704-7) Lab Interpretation Abnormal (test code = 73297-5) [facility] 20 + Lactic [id number] 09:16:12 Test Item Value Reference Range Interpretation Comments PH (test code = 2) 7.35-7.45 PCO2 (test code = See_Comment [Automate d 2927470008) message] The sy stem which generated this result transmitted reference range : 35 - 45 mmHg. The reference range was not used to interpret this result as normal/abnormal . PO2 (test code = See_Comment H [Automated 8897903806) message] The sy stem which generated this result transmitted reference range : 80 - 100 mmHg. The reference range was not used to interpret this result as normal/abnormal . HCO3 (test code = See_Comment L [Automate d 6581429946) message] The sy stem which generated this result transmitted reference range : 22 - 26 mEq/L. The reference range was not used to interpret this result as normal/abnormal . BE (test code = See_Comment L [Automated 6689337635) message] The sy stem which generated this result transmitted reference range : -3.0 - 3.0 mEq/ L. The reference r evita was not used to interpret this result as normal/abnormal . THB (test code = 13.2 g/dL 13.5-18.0 L 0556973593) %O2HB (test code = 98.8 % 94.0-99.0 7635958572) %COHB ART (test code = 0.3 % 0.0-1.5 6404529833) %METHB ART (test code = 0.2 % 0.4-1.5 L 2789582591) VOL%O2 ART (test code = 18.8 % 15.0-23.0 8730067577) NA (test code = 139 mmol/L 135-145 4920127202) K+ (test code = 3.9 mmol/L 3.5-5.0 8625720062) AC CA IONZ (test code = 4.60 mg/dL 4.50-5.30 0278317340) GLUCOSE (test code = 88 mg/dL 70-110 9626609505) LACTIC ACID (test code 1.04 mmol/L 0.50-2.20 = 3534550770) Lab Interpretation Abnormal (test code = 90796-3) [facility][H] Drug Screen Urine (9 Drugs)2019-07-20 15:46:01 Test [...] Propoxyphene Negative Negative Screen (test code = 21998-5) Urine Drug Screen Note See Note Drugs [...] ng/mLMethadone 300 ng/mLUrine alco hol 20 mg/dL [facility][H] Drug Screen Urine (9 Drugs)2019-02-24 13:44:01 [...] Propoxyphene Negative Negative Screen (test code = 49493-0) Urine Drug Screen Note See Note Drugs [...]
[2023-05-22] MEDS ORDERED: DIAZEPAM 5 MG TABLET ONE (13:17)
--- NOTE | 2023-05-22 13:19 | EDPHYS ---
Physician Documentation [facility] Name: Chan Gale Age: 22 yrs Sex: Male : 2000 Arrival Date: 05/22/2023 Time: 12:25 Bed 8 Private MD: ED Physician Abram Torrez HPI: 05/22 13:15 This 22 yrs old Male presents to ER via EMS with complaints of withdrawals. rn 13:15 Pt reports took his last suboxone yesterday, ran out, his mom wouldn't take him to [place] to get another prescription, so came here for suboxone. Reports pain all over and malaise. NO chest pain/sob/palpitations. Denies suicidal or homicidal ideations.. Onset: The symptoms/episode began/occurred today. The patient has experienced similar episodes in the past. The patient has not recently seen a physician. Historical: - Allergies: 12:33 No Known Allergies; hb - Home Meds: 12:33 Suboxone 8-2 mg sublingual Film [Active]; hb - PMHx: 12:33 adhd; Anxiety; avoident restrictive food intact disorder; Bipolar disorder; Depression; hb drug abuse; - Immunization history:: Adult Immunizations up to date. - Family history:: not pertinent. - Social history:: Smoking status: Patient denies any tobacco usage or history of. - Hospitalizations: : No recent hospitalization is reported. ROS: 13:15 Constitutional: Negative for fever, chills, and weight loss, Cardiovascular: Negative rn for chest pain, palpitations, and edema, Respiratory: Negative for shortness of breath, cough, wheezing, and pleuritic chest pain, Abdomen/GI: Negative for abdominal pain, nausea, vomiting, diarrhea, and constipation, MS/Extremity: Negative for injury and deformity, Skin: Negative for injury, rash, and discoloration, Neuro: Negative for headache, weakness, numbness, tingling, and seizure, Psych: Negative for depression, anxiety, suicide ideation, homicidal ideation, and hallucinations. Exam: 13:15 Constitutional: This is a well developed, well nourished patient who is awake, alert, rn and in no acute distress. Cardiovascular: Regular rate and rhythm. No pulse deficits. Respiratory: No increased work of breathing, no retractions or nasal flaring. Skin: Warm, dry with normal turgor. Normal color with no rashes, no lesions, and no evidence of cellulitis. Neuro: Awake and alert, GCS 15, oriented to person, place, time, and situation. Cranial nerves II-XII grossly intact. Motor strength 5/5 in all extremities. Sensory grossly intact. Cerebellar exam normal. Normal gait. Vital Signs: 12:32 BP 110 / 74; Pulse 75; Resp 16; Temp 97.4; Pulse Ox 100% ; Weight 56.7 kg; Height 5 ft. hb 8 in. ; Pain 6/10; 12:45 BP 120 / 82; Pulse 76; Resp 17; Temp 97.8; Pulse Ox 99% on R/A; rs5 12:32 Body Mass Index 19.01 (56.70 kg, 172.72 cm) hb 12:32 Pain Scale: Adult hb MDM: 12:31 Patient medically screened. rn 13:15 Differential Diagnosis opioid withdrawal . Data reviewed: vital signs, nurses notes, rn and as a result, I will discharge patient. Counseling: I had a detailed discussion with the patient and/or guardian regarding the historical points, exam findings, and any diagnostic results supporting the discharge/admit diagnosis, the need for outpatient follow up, to return to the emergency department if symptoms worsen or persist or if there are any questions or concerns that arise at home. Special discussion: I discussed with the patient/guardian in detail that at this point there is no indication for admission to the hospital. It is understood, however, that if the symptoms persist or worsen the patient needs to return immediately for re-evaluation. ED course: Pt's father is here to pick him up, he plans on getting ride to see his doctor in [place] today or tomorrow. . Administered Medications: 13:01 Not Given (pharmacy states not carried): Suboxone Film 4 mg-1 mg 1 application PO once rn 13:09 Drug: Diazepam PO 5 mg Route: PO; rs5 Disposition Summary: 05/22/23 13:18 Discharge Ordered Location: Home rn Problem: an ongoing problem rn Symptoms: have improved rn Condition: Stable rn Diagnosis - Opioid dependence rn Followup: rn - With: Private Physician - When: As needed - Reason: Recheck today's complaints, Re-evaluation by your physician Discharge Instructions: - Discharge Summary Sheet rn - Opioid Withdrawal rn - Opioid Use Disorder rn - Opioid Withdrawal Treatment rn Forms: - Medication Reconciliation Form rn - Thank You Letter 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
--- NOTE | 2023-05-22 13:19 | ER ---
Nurse's Notes [facility] Name: Chan Gale Age: 22 yrs Sex: Male : 2000 Arrival Date: 05/22/2023 Time: 12:25 Bed 8 Private MD: Diagnosis: Opioid dependence Presentation: 05/22 12:32 Chief complaint: Out of Suboxone, last dose was yesterday, c/o severe anxiety and N/V. hb Coronavirus screen: At this time, the client does not indicate any symptoms associated with coronavirus-19. Ebola Screen: No symptoms or risks identified at this time. Initial Sepsis Screen: Does the patient meet any 2 criteria? No. Patient's initial sepsis screen is negative. Does the patient have a suspected source of infection? No. Patient's initial sepsis screen is negative. Risk Assessment: Do you want to hurt yourself or someone else? Patient reports no desire to harm self or others. Onset of symptoms was May 22, 2023. 12:32 Method Of Arrival: EMS: [facility] 12:32 Acuity: SIRISHA 3 hb Historical: - Allergies: 12:33 No Known Allergies; hb - Home Meds: 12:33 Suboxone 8-2 mg sublingual Film [Active]; hb - PMHx: 12:33 adhd; Anxiety; avoident restrictive food intact disorder; Bipolar disorder; Depression; hb drug abuse; - Immunization history:: Adult Immunizations up to date. - Family history:: not pertinent. - Social history:: Smoking status: Patient denies any tobacco usage or history of. - Hospitalizations: : No recent hospitalization is reported. Screenin:45 [facility] ED Fall Risk Assessment (Adult) History of falling in the last 3 months, rs5 including since admission No falls in past 3 months (0 pts) Confusion or Disorientation No (0 pts) Intoxicated or Sedated No (0 pts) Impaired Gait No (0 pts) Mobility Assist Device Used No (0 pt) Altered Elimination No (0 pt) Score/Fall Risk Level 0 - 2 = Low Risk Oriented to surroundings, Maintained a safe environment. 12:45 Abuse screen: Denies threats or abuse. Nutritional screening: No deficits noted. rs5 Tuberculosis screening: No symptoms or risk factors identified. Assessment: 12:45 Derm: Skin is pink, warm \\T\\ dry. rs5 12:45 General: Appears in no apparent distress. comfortable, Behavior is calm, cooperative, rs5 appropriate for age. Pain: Denies pain. Neuro: Level of Consciousness is awake, alert, obeys commands, Oriented to person, place, time, situation. Cardiovascular: Heart tones S1 S2 present Rhythm is regular. Respiratory: Airway is patent Respiratory effort is even, unlabored, Respiratory pattern is regular, symmetrical. GI: Abdomen is flat, non-distended, Bowel sounds present X 4 quads. Abd is soft and non tender X 4 quads. : No signs and/or symptoms were reported regarding the genitourinary system. EENT: No signs and/or symptoms were reported regarding the EENT system. Musculoskeletal: Range of motion: intact in all extremities. 13:13 Reassessment: Pt reports wanting to leave. Pt states "My dad's here to pick me up and I rs5 want to leave." Provider notified. Reassessment: Pt walked out of ED AMA. Vital Signs: 12:32 BP 110 / 74; Pulse 75; Resp 16; Temp 97.4; Pulse Ox 100% ; Weight 56.7 kg; Height 5 ft. hb 8 in. ; Pain 6/10; 12:45 BP 120 / 82; Pulse 76; Resp 17; Temp 97.8; Pulse Ox 99% on R/A; rs5 12:32 Body Mass Index 19.01 (56.70 kg, 172.72 cm) hb 12:32 Pain Scale: Adult hb ED Course: 12:28 Patient arrived in ED. mr 12:31 Abram Torrez MD is Attending Physician. rn 12:33 Triage completed. hb 12:33 Arm band placed on. hb 12:37 Freddie Ramirez, JASON is Primary Nurse. rs5 12:45 Patient has correct armband on for positive identification. Bed in low position. Call rs5 light in reach. Side rails up X2. 12:45 No provider procedures requiring assistance completed. rs5 Administered Medications: 13:01 Not Given (pharmacy states not carried): Suboxone Film 4 mg-1 mg 1 application PO once rn 13:09 Drug: Diazepam PO 5 mg Route: PO; rs5 Medication: 13:20 VIS not applicable for this client. rs5 Outcome: 12:45 AMA Left before signing form. rs5 12:45 Condition: stable 13:18 Discharge ordered by . rn 13:21 Patient left the ED. rs5 Signatures: Charlene Fall, MD MD jason Valverde Heather, RN RN hb Sotelo, Ricky, RN RN rs5 Corrections: (The following items were deleted from the chart) 13:13 13:10 General: Appears in no apparent distress. comfortable, Behavior is calm, rs5 cooperative, appropriate for age, rs5 13:13 13:10 Pain: Denies pain. rs5 rs5 13:13 13:10 Neuro: Level of Consciousness is awake, alert, obeys commands, Oriented to rs5 person, place, time, situation, rs5 13: 13:10 Cardiovascular: Heart tones S1 S2 present Rhythm is regular rs5 rs5 13:13 13:10 Respiratory: Airway is patent Respiratory effort is even, unlabored, Respiratory rs5 pattern is regular, symmetrical, rs5 13:13 13:10 GI: Abdomen is flat, non-distended, Bowel sounds present X 4 quads. Abd is soft rs5 and non tender X 4 quads. rs5 13:13 13:10 : No signs and/or symptoms were reported regarding the genitourinary system. [id number] 13: 13:10 EENT: No signs and/or symptoms were reported regarding the EENT system. rs5 rs5 13:13 13:10 Derm: Skin is pink, warm \\T\\ dry. rs5 rs5 13:13 13:10 Musculoskeletal: Range of motion: intact in all extremities, rs5 rs5
[2023-05-22 13:41] VITALS: BP 120/82; TEMP 97.8; O2SAT 99
== END 2023-05-22 13:21 | disposition home or self-care (01) ==
LOC: ER 12:25
DX: F11.20 Opioid dependence, uncomplicated (principal); F31.9 Bipolar disorder, unspecified
CPT/HCPCS: 99283

== ENCOUNTER 2023-08-13 07:03 | Emergency (ER) | payer OTHER, SELFPAY ==
--- OUTSIDE RECORDS SUMMARY | 2023-08-13 07:07 | XMS REPORT | Continuity of Care Document ---
:2000 Author Organization [facility] t Address [address] [place] [address] [address] [place] [address] Care Team Providers Name Role Phone KENYA FUENTES Primary Care Physician Unavailable KENYA FUENTES Attending Clinician Unavailable DONTA HAYNES Attending Clinician Unavailable Donta Haynes MD Attending Clinician CRISTINA AZUL Attending Clinician Unavailable Kenya Aiken Attending Clinician Doctor Unassigned, [place] Attending Clinician Unavailable Marilu Steiner LVN Attending Clinician TRINIDAD ESTRADA Attending Clinician Unavailable Trinidad Estrada DO Attending Clinician MICHAEL ASHRAF Attending Clinician Unavailable Campbell Guerrero MD Attending Clinician [phone] Ayaan Yung DO Attending Clinician Michael Ashraf DO Attending Clinician Kim Patel PHD Attending Clinician KIM PATEL Attending Clinician Unavailable JAZMYN ESPINAL M.D. Attending Clinician Unavailable CHANCE VAZQUEZ APRN Attending Clinician Unavailable KENYA FUENTES Admitting Clinician Unavailable CAMPBELL GUERRERO Admitting Clinician Unavailable Ayaan Yung DO Admitting Clinician Payers Payer Name Policy Type Policy Number Effective Date Expiration Date Beatriz guzmán [facility] [id number] 2018 CHOICE [place] STAR 00:00:00 Problems Condition Condition Condition Status Onset Resolution Last Treating Co mments Source Name Details Category Date Date Treatment Clinician Date Need for Need for Disease Active Unive rs hepatitis hepatitis 1-23 ity of C C 00:00: [place] screening screening 00 [facility] test test Branch Low bone Low [...] Active Univers ALLERGIE Class ity of S [facility] [place] Social History Social Habit Start Date Stop Date Quantity Comments Source Exposure to 2022-11-18 2022-11-28 Not sure [facility] SARS-CoV-2 (event) 00:00:00 11:48:00 [facility] [place] Alcohol intake 2022-10-20 2022-10-20 Current University of 00:00:00 00:00:00 non-drinker of [facility] alcohol Branch (finding) Tobacco Comment 2022-09-05 2022-09-05 Vapes Universit y of 00:00:00 00:00:00 [facility] [place] Tobacco use and 2022-09-05 2022-09-05 Smokeless Universit y of exposure 00:00:00 00:00:00 tobacco non-[address] [facility] dical [place] Cigarettes smoked 2022-09-05 2022-09-05 Univers ity of current (pack per 00:00:00 00:00:00 [facility] ) - Reported Branch History of tobacco 2018-07-08 Cigarette Smoker University of use 00:00:00 [facility] [place] Sex Assigned At 2000 2002 Universit y of 00:00:00 00:00:00 [facility] [place] Smoking Status Start Date Stop Date Source Never smoked tobacco [facility] (finding[facility] Smokes tobacco daily 2022-09-05 00:00:00 Univers ity [facility] Ex-smoker 2022-09-01 00:00:00 2022-09-01 00:00:00 Universi ty [facility] Medications Ordered Filled Start Stop Current Ordering Indication Dosage Frequency Signature Comments Components Source Medication Medication Date Date Medication? Clinician (SIG) Name Name ondansetron 2022- No [id number] 4mg Take 1 Univers (ZOFRAN) 4 12-02-18 tablet by ity of mg tablet 00:00: 04:59 mouth [place] 00 :00 every 8 Medical (eight) Branch hours as needed for Nausea and Vomiting (N/V) for up to 10 days. ondansetron 2022- No [id number] 4mg Take 1 Univers (ZOFRAN) 4 12-02-18 tablet by ity of mg tablet 00:00: 04:59 mouth [place] 00 :00 every 8 Medical (eight) Branch hours as needed for Nausea and Vomiting (N/V) for up to 10 days. OXcarbazepi 2021-09- No 600mg Take 600 Univers ne 600 mg 11-06- mg by ity of tablet 14:31: 00:00 mouth 2 [place] 18 :00 (two) Medical times Branch daily. OXcarbazepi 2021-09- No 600mg Take 600 Univers ne 600 mg 11-06- mg by ity of tablet 14:31: 00:00 mouth 2 [place] 18 :00 (two) Medical times Branch daily. LORazepam 2021-09- No 1mg Take 1 mg Univers mg Cp24 11-06 by mouth 2 ity o f 14:27: 00:00 (two) [place] 07 :00 times Medical daily. Branch LORazepam 2021-09- No 1mg Take 1 mg Univers mg Cp24 11-06 by mouth 2 ity o f 14:27: 00:00 (two) [place] 07 :00 times Medical daily. Branch olanzapine 2022-1 Yes Take by [facility] ers (ZYPREXA 2-09 mouth 2 ity of ORAL) 14:26: (two) [place] [address] times Medical daily. Branch Prescribed by [facility] - Apr 2019 gabapentin 2-1 Yes 600mg Take 600 Un juan 600 mg 2-09 mg by ity of tablet 14:26: mouth in [place] [address] the Medical morning Branch and 600 mg at noon and 600 mg in the evening. olanzapine 2021-1 Yes Take by [employer] ers (ZYPREXA 2-09 mouth 2 ity of ORAL) 14:26: (two) [place] [address] times Medical daily. Branch Prescribed by [facility] - Apr 2019 gabapentin 2021-1 Yes 600mg Take 600 [place] 600 mg 2-09 mg by ity of tablet 14:26: mouth in [place] [address] the Medical morning Branch and 600 mg at noon and 600 mg in the evening. olanzapine 2021-1 Yes Take by [facility] ers (ZYPREXA 2-09 mouth 2 ity of ORAL) 14:26: (two) [place] [address] times Medical daily. Branch Prescribed by [facility] - Apr 2019 gabapentin 2021-1 Yes 600mg Take 600 [place] 600 mg 2-09 mg by ity of tablet 14:26: mouth in [place] [address] the Medical morning Branch and 600 mg at noon and 600 mg in the evening. olanzapine 2021-1 Yes Take by [employer] ers (ZYPREXA 2-09 mouth 2 ity of ORAL) 14:26: (two) [place] [address] times Medical daily. Branch Prescribed by [facility] - Apr 2019 gabapentin 2-1 Yes 600mg Take 600 [place] 600 mg 2-09 mg by ity of tablet 14:26: mouth in [place] [address] the Medical morning Branch and 600 mg at noon and 600 mg in the evening. olanzapine 2-1 Yes Take by [employer] ers (ZYPREXA 2-09 mouth 2 ity of ORAL) 14:26: (two) [place] [address] times Medical daily. Branch Prescribed by [facility] - Apr 2019 gabapentin 2022-1 Yes 600mg Take 600 [place] 600 mg 2-09 mg by ity of tablet 14:26: mouth in [place] [address] the Medical morning Branch and 600 mg at noon and 600 mg in the evening. olanzapine 2021- Yes Take by [employer] ers (ZYPREXA 2-09 mouth 2 ity of ORAL) 14:26: (two) [place] [address] times Medical daily. Branch Prescribed by [facility] - Apr 2019 gabapentin 2021-1 Yes 600mg Take 600 [place] 600 mg 2-09 mg by ity of tablet 14:26: mouth in [place] [address] the Medical morning Branch and 600 mg at noon and 600 mg in the evening. olanzapine 2021- Yes Take by [employer] ers (ZYPREXA 2-09 mouth 2 ity of ORAL) 14:26: (two) [place] [address] times Medical daily. Branch Prescribed by [facility] - Apr 2019 gabapentin 2-1 Yes 600mg Take 600 [place] 600 mg 2-09 mg by ity of tablet 14:26: mouth in [place] [address] the Medical morning Branch and 600 mg at noon and 600 mg in the evening. olanzapine 2021-1 Yes Take by [employer] ers (ZYPREXA 2-09 mouth 2 ity of ORAL) 14:26: (two) [place] [address] times Medical daily. Branch Prescribed by [facility] - Apr 2019 gabapentin 2021-1 Yes 600mg Take 600 [place] 600 mg 2-09 mg by ity of tablet 14:26: mouth in [place] [address] the Medical morning Branch and 600 mg at noon and 600 mg in the evening. olanzapine 2021-1 Yes Take by [employer] ers (ZYPREXA 2-09 mouth 2 ity of ORAL) 14:26: (two) [place] [address] times Medical daily. Branch Prescribed by [facility] - Apr 2019 gabapentin 2021-1 Yes 600mg Take 600 [place] 600 mg 2-09 mg by ity of tablet 14:26: mouth in [place] [address] the Medical morning Branch and 600 mg at noon and 600 mg in the evening. olanzapine 2-1 Yes Take by [employer] ers (ZYPREXA 2-09 mouth 2 ity of ORAL) 14:26: (two) [place] [address] times Medical daily. Branch Prescribed by [facility] - Apr 2019 gabapentin 2021-1 Yes 600mg Take 600 [place] 600 mg 2-09 mg by ity of tablet 14:26: mouth in [place] [address] the Medical morning Branch and 600 mg at noon and 600 mg in the evening. olanzapine 2021-1 Yes Take by [employer] ers (ZYPREXA 2-09 mouth 2 ity of ORAL) 14:26: (two) [place] [address] times Medical daily. Branch Prescribed by [facility] - Apr 2019 gabapentin 2021-1 Yes 600mg Take 600 [place] 600 mg 2-09 mg by ity of tablet 14:26: mouth in [place] [address] the Medical morning Branch and 600 mg at noon and 600 mg in the evening. olanzapine 2021- Yes Take by [employer] ers (ZYPREXA 2-09 mouth 2 ity of ORAL) 14:26: (two) [place] [address] times Medical daily. Branch Prescribed by [facility] Apr 2019 gabapentin 2021-1 Yes 600mg Take 600 [place] 600 mg 2-09 mg by ity of tablet 14:26: mouth in [place] [address] the Medical morning Branch and 600 mg at noon and 600 mg in the evening. olanzapine 2021- Yes Take by [employer] ers (ZYPREXA 2-09 mouth 2 ity of ORAL) 14:26: (two) [place] [address] times Medical daily. Branch Prescribed by [facility] Apr 2019 gabapentin 2021-1 Yes 600mg Take 600 [place] 600 mg 2-09 mg by ity of tablet 14:26: mouth in [place] [address] the Medical morning Branch and 600 mg at noon and 600 mg in the evening. olanzapine 2021-1 Yes Take by [employer] ers (ZYPREXA 2-09 mouth 2 ity of ORAL) 14:26: (two) [place] [address] times Medical daily. Branch Prescribed by [facility] Apr 2019 gabapentin 2-1 Yes 600mg Take 600 [place] 600 mg 2-09 mg by ity of tablet 14:26: mouth in [place] [address] the Medical morning Branch and 600 mg at noon and 600 mg in the evening. olanzapine 2-1 Yes Take by [employer] ers (ZYPREXA 2-09 mouth 2 ity of ORAL) 14:26: (two) [place] [address] times Medical daily. Branch Prescribed by [facility] - Apr 2019 gabapentin 2021-1 Yes 600mg Take 600 [place] 600 mg 2-09 mg by ity of tablet 14:26: mouth in [place] [address] the Medical morning Branch and 600 mg at noon and 600 mg in the evening. olanzapine 2021- Yes Take by [facility] ers (ZYPREXA 2-09 mouth 2 ity of ORAL) 14:26: (two) [place] [address] times Medical daily. Branch Prescribed by [facility] - Apr 2019 gabapentin 2021-1 Yes 600mg Take 600 [place] 600 mg 2-09 mg by ity of tablet 14:26: mouth in [place] [address] the Medical morning Branch and 600 mg at noon and 600 mg in the evening. olanzapine 2021- Yes Take by [facility] ers (ZYPREXA 2-09 mouth 2 ity of ORAL) 14:26: (two) [place] [address] times Medical daily. Branch Prescribed by [facility] Apr 2019 gabapentin 2021-1 Yes 600mg Take 600 [place] 600 mg 2-09 mg by ity of tablet 14:26: mouth in [place] [address] the Medical morning Branch and 600 mg at noon and 600 mg in the evening. olanzapine 2021- Yes Take by [facility] ers (ZYPREXA 2-09 mouth 2 ity of ORAL) 14:26: (two) [place] [address] times Medical daily. Branch Prescribed by [facility] - Apr 2019 gabapentin 2021-1 Yes 600mg Take 600 [place] 600 mg 2-09 mg by ity of tablet 14:26: mouth in [place] [address] the Medical morning Branch and 600 mg at noon and 600 mg in the evening. SERTraline 2021-2021- No 100mg Take 100 U nivers 100 mg 11-06 12-09 mg by ity of tablet 14:19: 00:00 mouth [place] 22 :00 daily. Medical Prescribed Branch by [facility] Apr 2019 SERTraline 2021-2021- No 100mg Take 100 U nivers 100 mg 2-09 12-09 mg by ity of tablet 14:19: 00:00 mouth [place] 22 :00 daily. Medical Prescribed Branch by [facility] - Apr 2019 nicotine 2021- Yes [...] by ity of tablet 17:34: mouth in [place] [address] the Medical morning Branch and 600 mg at noon and 600 mg in the evening. gabapentin 2021-09 Yes 600mg Take 600 Un [place] 600 mg 2-06 mg by ity of tablet 17:34: mouth in [place] 50 the Medical morning Branch and 600 mg at noon and 600 mg in the evening. gabapentin 2021-09 Yes 600mg Take 600 [place] 600 mg 2-06 mg by ity of tablet 17:34: mouth in [place] 50 the Medical morning Branch and 600 [...] [place] 48 daily. Medical Prescribed Branch by [facility] - Apr 2019 olanzapine 2021-09 Yes Take by [facility] ers (ZYPREXA 2-06 mouth 2 ity of ORAL) 15:34: (two) [place] 48 times Medical daily. Branch Prescribed by [facility] - Apr 2019 LORazepam 1 2021-09 [...] [place] 48 daily. Medical Prescribed Branch by [facility] - Apr 2019 olanzapine 2021-09 Yes Take by [facility] ers (ZYPREXA 2-06 mouth 2 ity of ORAL) 15:34: (two) [place] 48 times Medical daily. Branch Prescribed by [facility] - Apr 2019 LORazepam 1 [...] [place] 48 daily. Medical Prescribed Branch by [facility] - Apr 2019 olanzapine 2021-09 Yes Take by [facility] ers (ZYPREXA 2-06 mouth 2 ity of ORAL) 15:34: (two) [place] 48 times Medical daily. Branch Prescribed by [facility] no - Apr 2019 LORazepam [...] [place] 48 daily. Medical Prescribed Branch by [facility] - Apr 2019 olanzapine 2021-09 Yes Take by Univ ers (ZYPREXA 2-06 mouth 2 ity of ORAL) 15:34: (two) [place] 48 times Medical daily. Branch [facility] - Apr 2019 gabapentin 2021-09 Yes 600mg Take 600 [place] 600 mg 2-06 mg by ity of tablet 15:34: mouth in [place] 48 the Medical morning Branch and 600 mg at noon and 600 mg in the evening. LORazepam 1 2021-09 Yes 1mg Take 1 mg U nivers mg Cp24 2-06 by mouth 2 ity of 15:34: (two) [place] 48 times Medical daily. [place] LORazepam 2021-09 Yes 1mg 1 mg, Univers (ATIVAN) 2-06 Oral, QAM, ity o f tablet 1 mg 15:00: First dose [place] 00 on [facility] 09/02/22 at [place] 0900, Until Discontinu ed, Routine OLANZapine 2021-09 Yes 15mg 15 mg, Unive rs (ZyPREXA) 2-06 Oral, QHS, ity of tablet 15 03:00: First dose [place] mg 00 on [facility] 09/01/22 at [place] 2100, Until Discontinu ed, Routine PARoxetine 2021-09 Yes 20mg 20 mg, Unive rs (PAXIL) 2-06 Oral, QHS, ity of tablet 20 03:00: First dose [place] mg 00 on [facility] 09/01/22 at [place] 2100, Until Discontinu ed, Routine gabapentin 2021-09 Yes 600mg 600 mg, Uni vers (NEURONTIN) 2-06 Oral, TID, it y of tablet 600 02:00: First dose [place] mg 00 on [facility] 09/01/22 at Branch 2000, Until Discontinu ed, Routine acetaminoph 2021-09 No 325mg 325 mg, U nivers en 2-05 12-06 Oral, ity of (TYLENOL) 23:49: 00:20 ONCE, 1 [place] tablet 325 00 :00 dose, On Medic al mg [facility] 09/01/22 at 1800, Routine clonazePAM 2021-09 [...] :00 ONCE, 1 Medical dose, On [facility] 08/31/22 at 1730, Routine clonazePAM 2021-09 No 1mg 1 mg, Unive rs 0.1 mg/mL 11-01 Oral, TID, ity of oral 20:00: 14:29 First dose [place] suspension 00 :11 on [facility] 1 mg 08/31/22 at Branch 1400, [...] use a rass of -3, Starting on [facility] 08/31/22 at 1014
In itiate infusion at [...] 40 mg 00 First dose Medical on [facility] 08/31/22 at 0900, Until Discontinu ed, Routine dexMEDEtomi 2021-09 No .2ug/kg 0.2-1.5 Univers dine 200 11-01-06 /h mcg/kg/hr ity o f mcg in 0.9 14:33: 00:39 ?61 [place] % NaCl 50 19 :35 (3.05-22.8 Medi patrick mL 75 mL/hr, Branch (PRECEDEX) rounded to RTU IV 3.05-22.88 infusion mL/hr), IV Infusion, TITRATE, Sedation-R ASS score (0 to -1), Starting on [facility] 08/31/22 at 0833
In itiate infusion at [...] Scale Goals Determined by Provider, Starting on [facility] 08/31/22 at 0203
In itiate infusion at [...] 1 Medical 50 mcg dose, On [facility] 08/31/22 at 0200, Routine propofoL IV 2021-09- No 5ug/kg/ 5-50 Un juan infusion 11-01 min mcg/kg/min ity of 07:24: 07:09 ?61 kg [place] 17 :53 (1.83-18.3 Medical mL/hr), IV Branch Infusion, TITRATE, Sedation-R ASS score (0 to -1), Starting on [facility] 08/31/22 at 0124
In itiate infusion at [...] STD 50mg in 06:26: 16:14 mL/hr), IV [place] NaCl 0.9% 10 :53 Infusion, Medic al [...] :00 times Medical daily. Branch prescribed at [place] [facility] no summer 2018 PARoxetine 2021-09 Yes 20mg [...] mouth ity of tablet 00:00: in the [place] 00 morning. Medical Branch LORazepam 1 2021-09 Yes 1mg Take 1 mg U nivers mg tablet 1-21 by mouth ity of 00:00: in the [place] morning. Medical Branch PARoxetine 2021- Yes 20mg Take 20 mg U nivers 20 mg 1-21 by mouth ity of tablet 00:00: in the [place] morning. Medical Branch LORazepam 1 2021- Yes 1mg Take 1 mg U nivers mg tablet 1-21 by mouth ity of 00:00: in the [place] morning. Medical Branch PARoxetine 2021- Yes 20mg Take 20 mg U nivers 20 mg 1-21 by mouth ity of tablet 00:00: in the [place] morning. Medical Branch LORazepam 1 2021-09 Yes 1mg Take 1 mg U nivers mg tablet 1-21 by mouth ity of 00:00: in the [place] morning. Medical Branch PARoxetine 2021- Yes 20mg Take 20 mg U nivers 20 mg 1-21 by mouth ity of tablet 00:00: in the [place] morning. Medical Branch LORazepam 1 2021-09 Yes 1mg Take 1 mg U nivers mg tablet 1-21 by mouth ity of 00:00: in the [place] morning. Medical Branch PARoxetine 2021- Yes 20mg Take 20 mg U nivers 20 mg 1-21 by mouth ity of tablet 00:00: in the [place] 00 morning. Medical Branch LORazepam 1 2021-09 Yes 1mg Take 1 mg U nivers mg tablet 1-21 by mouth ity of 00:00: in the [place] morning. Medical Branch PARoxetine 2021- Yes 20mg Take 20 mg U nivers 20 mg 1-21 by mouth ity of tablet 00:00: in the [place] 00 morning. Medical Branch LORazepam 1 2021- Yes 1mg Take 1 mg U nivers mg tablet 1-21 by mouth ity of 00:00: in the [place] 00 morning. Medical Branch PARoxetine 2021- Yes 20mg Take 20 mg U nivers 20 mg 1-21 by mouth ity of tablet 00:00: in the [place] 00 morning. Medical Branch LORazepam 1 2021- Yes 1mg Take 1 mg U nivers mg tablet 1-21 by mouth ity of 00:00: in the [place] 00 morning. Medical Branch PARoxetine 2021- Yes 20mg Take 20 mg U nivers 20 mg 1-21 by mouth ity of tablet 00:00: in the [place] 00 morning. Medical Branch LORazepam 2021-09 Yes 1mg Take 1 mg U nivers mg tablet 1-21 by mouth ity of 00:00: in the [place] 00 morning. Medical Branch PARoxetine 2021- Yes 20mg Take 20 mg U nivers 20 mg 1-21 by mouth ity of tablet 00:00: in the [place] morning. Medical Branch LORazepam 1 2021-09 Yes 1mg Take 1 mg U nivers mg tablet 1-21 by mouth ity of 00:00: in the [place] morning. Medical Branch PARoxetine 2021- Yes 20mg Take 20 mg U nivers 20 mg 1-21 by mouth ity of tablet 00:00: in the [place] morning. Medical Branch LORazepam 1 2021-09 Yes 1mg Take 1 mg U nivers mg tablet 1-21 by mouth ity of 00:00: in the [place] morning. Medical Branch PARoxetine 2021- Yes 20mg Take 20 mg U nivers 20 mg 1-21 by mouth ity of tablet 00:00: in the [place] morning. Medical Branch LORazepam 1 2021-09 Yes 1mg Take 1 mg U nivers mg tablet 1-21 by mouth ity of 00:00: in the [place] morning. Medical Branch PARoxetine 2021- Yes 20mg Take 20 mg U nivers 20 mg 1-21 by mouth ity of tablet 00:00: in the [place] morning. Medical Branch LORazepam 1 2021-09 Yes 1mg Take 1 mg U nivers mg tablet 1-21 by mouth ity of 00:00: in the [place] morning. Medical Branch PARoxetine 2021- Yes 20mg Take 20 mg U nivers 20 mg 1-21 by mouth ity of tablet 00:00: in the [place] 00 morning. Medical Branch LORazepam 1 2021-09 Yes 1mg Take 1 mg U nivers mg tablet 1-21 by mouth ity of 00:00: in the [place] 00 morning. Medical Branch PARoxetine 2021- Yes 20mg Take 20 mg U nivers 20 mg 1-21 by mouth ity of tablet 00:00: in the [place] 00 morning. Medical Branch LORazepam 1 2021-09 Yes 1mg Take 1 mg U nivers mg tablet 1-21 by mouth ity of 00:00: in the [place] 00 morning. Medical Branch PARoxetine 2021- Yes 20mg Take 20 mg U nivers 20 mg 1-21 by mouth ity of tablet 00:00: in the [place] 00 morning. Medical Branch LORazepam 2021-09 Yes 1mg Take 1 mg U nivers mg tablet 1-21 by mouth ity of 00:00: in the [place] 00 morning. Medical Branch PARoxetine 2021- Yes 20mg Take 20 mg U nivers 20 mg 1-21 by mouth ity of tablet 00:00: in the [place] 00 morning. Medical Branch LORazepam 1 2021-09 Yes 1mg Take 1 mg U nivers mg tablet 1-21 by mouth ity of 00:00: in the [place] 00 morning. Medical Branch PARoxetine 2021- Yes 20mg Take 20 mg U nivers 20 mg 1-21 by mouth ity of tablet 00:00: in the [place] 00 morning. Medical Branch LORazepam 2021-09 Yes 1mg Take 1 mg U nivers mg tablet 1-21 by mouth ity of 00:00: in the [place] 00 morning. Medical Branch SERTraline 2020-0 Yes 100mg Take 100 [place] 100 mg 1-25 mg by ity of tablet 18:52: mouth [place] 12 daily. Medical Prescribed Branch by [facility] - Apr 2019 SERTraline 2020-0 Yes 100mg Take 100 [place] 100 mg 1-25 mg by ity of tablet 18:52: mouth [place] 12 daily. Medical Prescribed Branch by [facility] - Apr 2019 SERTraline 2020-0 Yes 100mg Take 100 [place] 100 mg 1-25 mg by ity of tablet 18:52: mouth [place] 12 daily. Medical Prescribed Branch by [facility] - Apr 2019 olanzapine 2020-0 Yes Take by [facility] ers (ZYPREXA 1-25 mouth 2 ity of ORAL) 18:52: (two) [place] 09 times Medical daily. Branch Prescribed by [facility] - Apr 2019 olanzapine 2020-0 Yes Take by [facility] ers (ZYPREXA 1-25 mouth 2 ity of ORAL) 18:52: (two) [place] 09 times Medical daily. Branch Prescribed by [facility] no - Apr 2019 olanzapine 2020-0 Yes Take by [facility] ers (ZYPREXA 1-25 mouth 2 ity of ORAL) 18:52: (two) [place] 09 times Medical daily. Branch Prescribed by [facility] no - Apr 2019 gabapentin 2020-0 Yes Take by Univ ers 300 mg/6 mL 1-25 mouth 2 ity o f (6 mL) 18:52: (two) [place] solution 07 times Medical daily. Branch prescribed at [facility] no summer 2018 gabapentin 2020-0 Yes Take by Univ ers 300 mg/6 mL 1-25 mouth 2 ity o f (6 mL) 18:52: (two) [place] solution 07 times Medical daily. Branch prescribed at [facility] no summer 2018 gabapentin 2020-0 Yes Take by Univ ers 300 mg/6 mL 1-25 mouth 2 ity o f (6 mL) 18:52: (two) [place] solution 07 times Medical daily. Branch prescribed at [facility] no summer 2018 OXcarbazepi 2020-0 [...] 00 BY MOUTH TWICE A DAY. busPIRone Yes [id number] 15mg Take 1 [place] 15 mg 6-06 tablet by ity of tablet 00:00: mouth 2 [place] 00 (two) Medical times Branch daily. DULoxetine Yes [id number] 60mg Take 1 U nivers 60 mg 6-04 capsule by ity of capsule 00:00: mouth [place] 00 daily. Medical Branch DULoxetine Yes [id number] 30mg Take 1 U nivers 30 mg 6-04 capsule by ity of capsule 00:00: mouth [place] 00 daily. Medical Branch OXcarbazepi Yes 600mg Take 600 U nivers ne 5-29 mg by ity of (TRILEPTAL) 19:48: mouth 2 [place] as 600 mg 44 (two) Medical tablet times Branch daily. traZODONE 2018- Yes [id number] 25mg Take 0.5 Univers 50 mg 5-29 tablets by ity of tablet 00:00: mouth 2 [place] 00 (two) Medical times Branch daily. Multi-Vitam Multi-Vitam Yes M.A. U T in TABS in TABS Physici ans Vital Signs Vital Name Observation Time Observation Value Comments Source Systolic blood 2022-11-28 104 mm[Hg] University pressure 17:50:00 [facility] [place] Diastolic blood 2022-11-28 52 mm[Hg] [place] o pressure 17:50:00 [facility] [place] Heart rate 2022-11-28 106 /min University of 17:50:00 [facility] [place] Body height 2022-11-28 172.7 cm University of 17:50:00 [facility] [place] Body weight 2022-11-28 62.551 kg University of 17:50:00 [facility] [place] BMI 2022-11-28 20.97 kg/m2 University of 17:50:00 [facility] [facility] [place] Oxygen saturation 2022-11-28 93 /min University of in Arterial blood 17:50:00 [place] [facility] by Pulse oximetry Branch Systolic blood 2022-10-20 108 mm[Hg] University of pressure 14:09:00 [facility] Branch Diastolic blood 2022-10-20 65 mm[Hg] University o f pressure 14:09:00 [facility] [place] Heart rate 2022-10-20 95 /min University of 14:09:00 [facility] [place] Body temperature 2022-10-20 37.06 Jeana University of 14:09:00 [facility] [place] Body height 2022-10-20 172.7 cm University of 14:09:00 [facility] [place] Body weight 2022-10-20 58.968 kg University of 14:09:00 [facility] [place] BMI 2022-10-20 19.77 kg/m2 University of 14:09:00 [facility] [place] Oxygen saturation 2022-10-20 98 /min University of in Arterial blood 14:09:00 [place] [facility] by Pulse oximetry Branch Systolic blood 2022-09-05 101 mm[Hg] University of pressure 20:22:00 [facility] [place] Diastolic blood 2022-09-05 64 mm[Hg] University o f pressure 20:22:00 [facility] [place] Heart rate 2022-09-05 62 /min University of 20:22:00 [facility] [place] Body temperature 2022-09-05 36.33 Jeana University of 20:22:00 [facility] [place] Body height 2022-09-05 172.7 cm University of 20:22:00 [facility] [place] Body weight 2022-09-05 56.337 kg University of 20:22:00 [facility] [place] BMI 2022-09-05 18.88 kg/m2 University of 20:22:00 [facility] [place] Oxygen saturation 2022-09-05 97 /min University of in Arterial blood 20:22:00 [place] [facility] by Pulse oximetry Branch Systolic blood 2022-09-03 110 mm[Hg] University of pressure 05:40:00 [facility] [place] Diastolic blood 2022-09-03 81 mm[Hg] University o f pressure 05:40:00 [facility] [place] Heart rate 2022-09-03 64 /min University of 05:40:00 [facility] [place] Body temperature 2022-09-03 37.22 Jeana University of 05:40:00 [facility] [place] Respiratory rate 2022-09-03 18 /min University of 05:40:00 [facility] [place] Body height 2022-09-03 172.7 cm University of 05:40:00 [facility] [place] Body weight 2022-09-03 57.153 kg University of 05:40:00 [facility] [place] BMI 2022-09-03 19.16 kg/m2 University 05:40:00 [facility] [place] Oxygen saturation 2022-09-03 100 /min [facility] in Arterial blood 05:40:00 [facility] by Pulse oximetry Branch Systolic blood 2022-09-02 114 mm[Hg] University of pressure 17:17:00 [facility] [place] Diastolic blood 2022-09-02 75 mm[Hg] University o f pressure 17:17:00 [facility] [place] Heart rate 2022-09-02 81 /min University 17:17:00 [facility] [place] Body temperature 2022-09-02 36.61 Jeana University of 17:17:00 [facility] Respiratory rate 2022-09-02 18 /min University of 17:17:00 [facility] [place] Oxygen saturation 2022-09-02 99 /min [facility] in Arterial blood 17:17:00 [facility] by Pulse oximetry Branch Body weight 2022-09-01 61 kg University of 19:40:00 [facility] BMI 2022-09-01 20.45 kg/m2 University of 19:40:00 [facility] Body height 2022-09-01 172.7 cm University of 19:36:00 [facility] BP Systolic 2019-10-20 118 mm[Hg] Location: RUE; [facility] 12:54:00 Position: Sitting BP Diastolic 2019-10-20 53 mm[Hg] Location: RUE; [facility] 12:54:00 Position: Sitting Height 2019-10-20 169 [...] [facility] 10:53:00 Temperature 2019-02-07 98 [degF] [facility] 10:53:00 Procedures Procedure Date / Time Performing Clinician Source Performed [facility] PATIENT FINANCIAL 2022-11-28 17:49:34 Doctor Unassigned, No [facility] POLICY Name Medical Branch EXTERNAL PROVIDER 2022-11-19 06:01:00 Doctor Unassigned, No [facility] RECORDS Name Medical Branch DEXA AXIAL (HIP AND 2022-09-17 19:58:00 Kenya Fuentes [facility] SPINE) Medical Branch EXTERNAL PROVIDER 2022-09-16 06:01:00 Doctor Unassigned, No [facility] RECORDS Name Medical Branch ASSIGNMENT OF BENEFITS 2022-09-05 19:47:49 Doctor Unassigned, No [facility] Name [facility] Branch COMP. METABOLIC PANEL 2022-09-01 10:44:00 Stephen Marilyn [facility] ([id number]) [facility] CBC WITH DIFF 2022-09-01 10:44:00 Stephen [facility] XR CHEST 1 VW 2022-09-01 10:15:00 Johann Cormier [facility] CREATINE KINASE 2022-08-31 09:35:00 Ninfa [facility] Dolly [facility] MAGNESIUM 2022-08-31 09:35:00 Jael Coppola [facility] TROPONIN I 2022-08-31 09:35:00 Jael Coppola [facility] COMP. METABOLIC PANEL 2022-08-31 09:35:00 Jael Coppola [facility] ([id number]) [facility] SALICYLATE 2022-08-31 09:35:00 Jael Coppola [facility] ETHANOL 2022-08-31 09:35:00 Jael Coppola [facility] CBC WITH DIFF 2022-08-31 09:35:00 Jael Coppola [facility] URINE DRUG (IMMUNOASSAY) 2022-08-31 09:07:00 Jael Coppola [facility] COMPREHENSIVE DRUG Medical Bra [facility] SCREEN URINE DRUG (LCMSMS) - 2022-08-31 09:07:00 Jael Coppola [facility] COMPREHENSIVE DRUG PANEL Medical Branch AC PANEL 20 + LACTIC 2022-08-31 09:01:00 Jael Coppola [facility] XR CHEST 1 VW 2022-08-31 05:44:00 Jael Coppola [place] [facility] XR KUB 2022-08-31 05:44:00 Jael Coppola [place] [facility] AUTHORIZATION FOR 2020-08-21 06:01:00 Doctor Unassigned, No [facility] RELEASE OF PHI Name Medical Branch [QLH] CBC (INCLUDES 2019-10-20 00:00:00 [facility] DIFF/PLT) [QL] CMP W/EGFR 2019-10-20 00:00:00 [facility] [QL] LIPID PANEL 2019-10-20 00:00:00 [facility] [QL] TSH, 3RD 2019-10-20 00:00:00 [facility] GENERATION [QH] DRUG 2019-07-20 00:00:00 [facility] SCREEN,COMPREHENSIVE (URINE) [QH] DRUG 2019-02-24 00:00:00 [facility] SCREEN,COMPREHENSIVE (URINE) Encounters Start End Encounter Admission Attending Care Care Encounter Source Date/Time Date/Time Type Type Clinicians Facility Department ID 2023-04-24 2023-04-24 Outpatient R [facility] [id number] Univers 11:00:00 11:00:00 DONTA rojas [facility] 2022-12-30 2022-12-30 [facility] 1.2.840.114 [id number] Univers 00:00:00 00:00:00 [facility] 350.1.13.10 Rl 4.2.7.2.686 [facility] [id number] [facility] AND LI 220 Branch [facility] 2022-12-03 2022-12-03 Outpatient R [facility] [id number] Univers 14:00:00 14:00:00 KENYA rojas [facility] 2022-12-02 2022-12-02 Telephone Alfredo [facility] [id number] Univers 00:00:00 00:00:00 Kenya [facility] 350.1.13.10 [place] 4.2.7.2.686 Sathya as NELSON?BLEA [phone] [place] apryl SERNA [address] [place] MEDICAL OFFICE [facility] 2022-11-28 2022-11-28 Outpatient R [facility] [id number] Univers 12:00:00 13:03:08 DONTA rojas [facility] 2022-11-28 2022-11-28 [facility] [id number] Univers 12:00:00 13:03:08 Visit Donta Bundy HEALTH 350.1.13.10 it y of [place] 4.2.7.2.686 Sathya as NELSON?BLEA [id number] [facility] KAREEM 220 [facility] OFFICE [facility] 2022-11-28 2022-11-28 Orders Doctor BEAULIEU 1.2.840.114 [id number] Univers 00:00:00 00:00:00 Only Unassigned, FRANCA 350.1.13.10 ity of [facility] 4.2.7.2.686 Sathya as [phone] [address] 2022-11-19 2022-11-19 Orders Doctor BRITTNEE 1.2.840.114 [id number] Univers 00:00:00 00:00:00 Only Unassigned, FRANCA 350.1.13.10 ity of [facility] 4.2.7.2.686 Sathya as [phone] [address] 2022-10-20 2022-10-20 Outpatient R [facility] [id number] Univers 08:00:00 08:45:36 KENYA rojas [facility] 2022-10-20 2022-10-20 [facility] 1.2.840.114 [id number] Univers 08:00:00 08:45:36 Visit [place] HEALTH 350.1.13.10 it y of [place] 4.2.7.2.686 Sathya as NELSON?BLEA [phone] [facility] 044 [facility] OFFICE [facility] 2022-09-23 2022-09-23 Telephone [facility] [id number] Univers 00:00:00 00:00:00 [place] HEALTH 350.1.13.10 it y of [place] 4.2.7.2.686 Sathya as NELSON?BLEA [id number] [address] MEDICAL OFFICE [facility] 2022-09-17 2022-09-17 [facility] [id number] Univers 13:39:39 23:59:00 KENYA rojas of [facility] 2022-09-17 2022-09-17 Hospital [facility] 1.2.840.114 [id number] Univers 13:39:39 23:59:00 Encounter Kenya CHAPPELL 350.1.13.10 ity of [facility] [place].2.7.2.[place] [id number] [facility] [address] [place] 2022-09-16 2022-09-16 Orders Doctor BRITTNEE 1.2.840.114 [id number] Univers 00:00:00 00:00:00 Only Unassigned, FRANCA 350.1.13.10 ity of [facility] 4.2.7.2.686 Sathya as [phone] [address] 2022-09-05 2022-09-05 [facility] [id number] Univers 14:00:00 14:51:04 KENYA rojas [facility] 2022-09-05 2022-09-05 Office [facility] 1.2.840.114 [id number] Univers 14:00:00 14:51:04 Visit [place] MEDINA 350.1.13.10 it y of [place] 4.2.7.2.686 Sathya as NELSON?BLEA [id number] [address] MEDICAL OFFICE [facility] 2022-09-05 2022-09-05 Orders Doctor BRITTNEE 1.2.840.114 [id number] Univers 00:00:00 00:00:00 Only Unassigned, FRANCA 350.1.13.10 ity of [facility] 4.2.7.2.686 Sathya as [phone] [facility] [address] [place] 2022-09-03 2022-09-03 Transition MINERVA Steiner 1.2.840.114 [id number] Univers 00:00:00 00:00:00 of Care Marilu MCMULLEN 350.1.13.10 [place] [phone] [facility] 403 Branch 2022-09-02 2022-09-02 Emergency X NATALIE [facility] ERT [id number] Univers 23:43:00 23:56:00 TRINIDAD ity of [facility] 2022-09-02 2022-09-02 Emergency Natalie [facility] 1.2.840.114 [id number] Univers 23:43:00 23:56:00 Trinidad Svetlana CHAPPELL 350.1.13.10 ity of [place]2.7.2.686 [place] [id number] [facility] 084 Branch 2022-08-30 2022-09-02 Inpatient X CHAPO [facility] MOOSE [id number] Univers 22:42:00 15:34:00 [place] ity [facility] 2022-08-30 2022-09-02 [facility] Campbell Guerrero 1. 2.840.114 [id number] Univers 22:42:00 15:34:00 Encounter Ayaan Yung 350.1.13.10 ity of [facility] 4.2.7.2.686 [place] [id number] [facility] 093 Branch 2020-08-21 2020-08-21 Orders Doctor BEAULIEU 1.2.840.114 [id number] 00:00:00 00:00:00 Only UnassignedFRANCA 350.1.13.10 [facility] 4.2.7.2.686 [id number] 009 2020-08-21 2020-08-21 Orders Doctor BEAULIEU 1.2.840.114 [id number] Univers 00:00:00 00:00:00 Only UnassignedFRANCA 350.1.13.10 ity of [facility] 4.2.7.2.686 Sathya as [id number] [facility] 009 Branch 2019-12-08 2019-12-08 Office Oxana [facility] 1.2.840.114 [id number] 13:05:19 14:05:19 Visit Kim MARES 350.1.13.10 [place] 4.2.7.2.686 [place] [id number] [facility] 2019-12-08 2019-12-08 Office [facility] 1.2.840.114 [id number] [facility] 13:05:19 14:05:19 Visit Kim N SPECIALTY 350.1.13.10 ity of [place] 4.2.7.2.686 Lisa MCGARRY [phone] [address] 2019-12-08 2019-12-08 Outpatient R [facility] [id number] [facility] 13:15:00 13:15:00 KIM ity o f [facility] 2019-10-20 2019-10-20 Appointmen CHAR ESPINAL Multispecia [id number] [place] 13:00:00 13:00:00 t; JAZMYN ESPINAL M.D. lty - Sarah [facility] 2019-07-20 2019-07-20 Appointmen CHAR ESPINAL Psychiatry [id number] [place] 13:00:00 13:00:00 t; JAZMYN ESPINAL M.D. Outpatient Physici [facility] 2019-06-08 2019-06-08 Telephone [facility] 1.2.840.114 [id number] [facility] 00:00:00 00:00:00 Kim N SPECIALTY 350.1.13.10 ity of [place] 4.2.7.2.686 Lisa MCGARRY [id number] [address] 2019-02-24 2019-02-24 Appointmen CHAR ESPINAL [id number] [place] 10:00:00 10:00:00 t; JAZMYN ESPINAL M.D. [place] [facility] SABA, M.D. [facility] 2019-02-07 2019-02-07 Appointmen CHAR VAZQUEZ Multispecia [id number] [place] 10:20:00 10:20:00 t; milton FLETCHER - CHANCE Chirinos APRN, APRN Results Test Description Test Time Test Comments Results Result Comments Source COMP. METABOLIC PANEL (43453) 2022-09-01 11:26:16 Test Item Value Reference Range Interpretation Comme nts NA (test code = 5432499559) 138 mmol/L 135-145 K (test code = 4802818719) 3.5 mmol/L 3.5-5.0 S light hemolysis CL (test code = 7199968899) 110 mmol/L 98-108 H CO2 TOTAL (test code = 26 mmol/L 23-31 0291475422) AGAP (test code = 2-16 8012358967) BUN (test code = 9 mg/dL 7-23 Slight hemo lysis 2901121676) GLUCOSE (test code = 99 mg/dL 70-110 5529510914) CREATININE (test code = 0.73 mg/dL 0.60-1.25 6441766902) TOTAL BILI (test code = 0.9 mg/dL 0.1-1.0 5630664871) CALCIUM (test code = 8.2 mg/dL 8.6-10.6 L 6130872202) T PROTEIN (test code = 5.5 g/dL 6.3-8.2 L 6886327100) ALBUMIN (test code = 3.3 g/dL 3.5-5.0 L 6761841077) ALK PHOS (test code = 75 U/L 34-122 Slight hemolysis 1519353387) ALTv (test code = 1742-6) 16 U/L 5-50 AST(SGOT) (test code = 30 U/L 13-40 Sligh t hemolysis 3383761567) eGFR (test code = mL/min/1.73m2 9244453023) KACI (test code = KACI) Association of [...] tests). Lab Interpretation (test Abnormal code = 68789-9) [facility] WITH [id number] 11:03:17 Test Item Value Reference Range Interpretation Comments WBC (test code = See_Comment [Automated 6490-2) message] The sy stem which generated this result transmitted reference range : 4.20 - 10.70 10*3/?L. The reference range was not used to interpret this result as normal/abnormal . RBC (test code = See_Comment L [Automated 939-8) message] The sy stem which generated this [...] RDW-SD (test code = 41.7 fL 38.5-51.6 98510-7) RDW-CV (test code = 13.2 % 12.1-15.4 788-0) PLT (test code = See_Comment [Automated 777-3) message] The sy stem which generated this result transmitted reference range : 150 - 328 10*3/ ?L. The reference r evita was not used to interpret this result as normal/abnormal . MPV (test code = 11.9 fL 9.8-13.0 84211-8) NRBC/100 WBC (test See_Comment [Automat ed code = 4356933025) message] The system which generated this result transmitted reference range : 0.0 - 10.0 /100 WBCs. The refer ence range was not u sed to interpret th is result as normal/abnormal . NRBC x10^3 (test code See_Comment [Auto mated = 3392466867) message] The s ystem which generated this result transmitted reference range : 10*3/?L. The reference range was not used to interpret this result as normal/abnormal . GRAN MAT (NEUT) % 62.3 % (test code = 770-8) IMM GRAN % (test code 0.20 % = 6211040930) LYMPH % (test code = 25.7 % 736-9) MONO % (test code = 8.0 % 5905-5) EOS % (test code = 3.4 % 713-8) BASO % (test code = 0.4 % 706-2) GRAN MAT x10^3(ANC) 5.01 10*3/uL 1.99-6.95 (test code = 6927767105) IMM GRAN x10^3 (test 0.00-0.06 code = 9252470044) LYMPH x10^3 (test code 2.07 10*3/uL 1.09-3.23 = 731-0) MONO x10^3 (test code 0.64 10*3/uL 0.36-1.02 = 742-7) EOS x10^3 (test code = 0.27 10*3/uL 0.06-0.53 711-2) BASO x10^3 (test code 0.03 10*3/uL 0.01-0.09 = 704-7) Lab Interpretation Abnormal (test code = 06659-8) [id number] 17:58:42 Test Item Value Reference Range Interpretation Comments CK (test code = 6030912854) 180 U/L 33-194 Lab Interpretation (test code = Normal 70865-1) [facility] [id number] 11:09:00 Test Item Value Reference Interpretation Comments Range TROPONIN I (test 0.001 ng/mL See_Comment [Automated code = 0336214305) message] The system which generated this result [...] biotin. Lab Interpretation Normal (test code = 23493-1) [facility]2022-[facility]-04 10:59:14 SALICYLATE<10mg/L111/01/2021 4:59 AM [facility] LABORATORY SERVICESTherapeutic Range: ? Analgesic and Antipyretic Use ? 20-100 mg/L ? ? Anti- Inflammatory Use ? 100-250 mg/L Toxic Range: ? Greater than 300 mg/LUnCH[facility] TylerETHANOL2022-12-04 10:59:14ALCOHOL<10mg/dL08/31/2022 4:59 AM [facility] LABORATORY SERVICESToxic Greater than or equal to 80 mg/dL. NOTE: Whole blood values are approximately 10% to 15% lower than serum and plasma.[facility] [id number] 10:59:09 Test Item Value Reference Range Interpretation Comments ACETAMINOP (test code = 10.0-30.0 L 5211180083) KACI (test code = KACI) Toxic: Greater than 200 ug/mL @ 4 hour post ingestion or greater than 50 ug/mL @ 12 hour post ingestion Lab Interpretation (test Abnormal code = 19337-0) [facility]2022-[facility]-04 10:58:19 Test Item Value Reference Range Interpretation Comments MAGNESIUM (test code = 0908505285) 1.8 mg/dL 1.7-2.4 Lab Interpretation (test code = Normal 61422-0) [facility]. METABOLIC PANEL (49672)2022-08-31 10:58:18 Test Item Value Reference Range Interpretation Comments NA (test code = 141 mmol/L 135-145 9566774236) K (test code = 4.0 mmol/L 3.5-5.0 4667758645) CL (test code = 110 mmol/L 98-108 H 9999734823) CO2 TOTAL (test code = 25 mmol/L 23-31 2248864715) AGAP (test code = 2-16 3620990557) BUN (test code = 5 mg/dL 7-23 L 0356786753) GLUCOSE (test code = 80 mg/dL 70-110 9274705947) CREATININE (test code = 0.71 mg/dL 0.60-1.25 1464810827) TOTAL BILI (test code = 0.5 mg/dL 0.1-1.6 5498226982) CALCIUM (test code = 7.7 mg/dL 8.6-10.6 L 6276260300) T PROTEIN (test code = 5.2 g/dL 6.3-8.2 L 8517795480) ALBUMIN (test code = 3.3 g/dL 3.5-5.0 L 5510332423) ALK PHOS (test code = 71 U/L 34-122 7927783001) ALTv (test code = 16 U/L 5-50 1742-6) AST(SGOT) (test code = 23 U/L 13-40 6259640114) eGFR (test code = mL/min/1.73m2 1798684038) KACI (test code = KACI) Association of [...] tests). Lab Interpretation Abnormal (test code = 41985-2) [facility] WITH [id number] 09:52:32 Test Item Value Reference Range Interpretation [...] RDW-SD (test code = 41.1 fL 38.5-51.6 26538-3) RDW-CV (test code = 12.9 % 12.1-15.4 788-0) PLT (test code = See_Comment [Automated 777-3) message] The system which generated this result transmit jordon reference range : 150 - 328 10*3/ ?L. The reference range was not u sed to interpret th is result as normal/abnormal . MPV (test code = 11.1 fL 9.8-13.0 97351-3) NRBC/100 WBC (test See_Comment [Automat ed code = 9284851126) message] The system which generated this result transmit jordon reference range : 0.0 - 10.0 /100 WBCs. The reference range was not used to interpret this result as normal/abnormal . NRBC x10^3 (test code See_Comment [Auto mated = 1034005175) message] The system which generated this result transmit jordon reference range : 10*3/?L. The reference range was not used to interpret this result as normal/abnormal . GRAN MAT (NEUT) % 90.1 % (test code = 770-8) IMM GRAN % (test code 0.40 % = 9762474410) LYMPH % (test code = 5.4 % 736-9) MONO % (test code = 3.8 % 5905-5) EOS % (test code = 0.1 % 713-8) BASO % (test code = 0.2 % 706-2) GRAN MAT x10^3(ANC) 14.75 10*3/uL 1.99-6.95 H (test code = 3201194422) IMM GRAN x10^3 (test 0.06 10*3/uL 0.00-0.06 code = 5417274284) LYMPH x10^3 (test code 0.88 10*3/uL 1.09-3.23 L = 731-0) MONO x10^3 (test code 0.62 10*3/uL 0.36-1.02 = 742-7) EOS x10^3 (test code = 0.06-0.53 L 711-2) BASO x10^3 (test code 0.03 10*3/uL 0.01-0.09 = 704-7) Lab Interpretation Abnormal (test code = 92810-7) [facility] + Lactic [id number] 09:16:12 Test Item Value Reference Range Interpretation Comments PH (test code = 2) 7.35-7.45 PCO2 (test code = See_Comment [Automate d 8875611963) message] The sy stem which generated this result transmitted reference range : 35 - 45 mmHg. The reference range was not used to interpret this result as normal/abnormal . PO2 (test code = See_Comment H [Automated 6365334162) message] The sy stem which generated this result transmitted reference range : 80 - 100 mmHg. The reference range was not used to interpret this result as normal/abnormal . HCO3 (test code = See_Comment L [Automate d 2759859836) message] The sy stem which generated this result transmitted reference range : 22 - 26 mEq/L. The reference range was not used to interpret this result as normal/abnormal . BE (test code = See_Comment L [Automated 8338552664) message] The sy stem which generated this result transmitted reference range : -3.0 - 3.0 mEq/ L. The reference r evita was not used to interpret this result as normal/abnormal . THB (test code = 13.2 g/dL 13.5-18.0 L 5228792074) %O2HB (test code = 98.8 % 94.0-99.0 9951144028) %COHB ART (test code = 0.3 % 0.0-1.5 7751345611) %METHB ART (test code = 0.2 % 0.4-1.5 L 9791588036) VOL%O2 ART (test code = 18.8 % 15.0-23.0 1924410181) NA (test code = 139 mmol/L 135-145 1984111695) K+ (test code = 3.9 mmol/L 3.5-5.0 4594055624) AC CA IONZ (test code = 4.60 mg/dL 4.50-5.30 0367510786) GLUCOSE (test code = 88 mg/dL 70-110 9028137641) LACTIC ACID (test code 1.04 mmol/L 0.50-2.20 = 9226298374) Lab Interpretation Abnormal (test code = 71616-3) [facility][H] Drug Screen Urine (9 Drugs)2019-07-20 15:46:01 Test [...] Propoxyphene Negative Negative Screen (test code = 73807-0) Urine Drug Screen Note See Note Drugs [...] ng/mLMethadone 300 ng/mLUrine alco hol 20 mg/dL [facility][H] Drug Screen Urine (9 Drugs)2019-02-24 13:44:01 [...] Propoxyphene Negative Negative Screen (test code = 22602-1) Urine Drug Screen Note See Note Drugs [...]
[2023-08-13] MEDS ORDERED: LORAZEPAM 1 MG TABLET ONE (07:46)
[2023-08-13] MEDS ORDERED: HYDROCODONE/APAP 5/325 MG TAB ONE (07:51)
--- NOTE | 2023-08-13 08:28 | ER ---
Nurse's Notes [facility] Name: Chan Gale Age: 22 yrs Sex: Male : 2000 Arrival Date: 08/13/2023 Time: 07:03 Bed 5 Private MD: Diagnosis: Low back pain;Generalized anxiety disorder Presentation: 08/13 07:12 Ebola Screen: Patient denies travel to an Ebola-affected area in the 21 days before 1 illness onset. 07:12 Method Of Arrival: Ambulatory 1 07:12 Acuity: SIRISHA 3 1 07:20 Chief complaint: Patient states: BACK PAIN AND ANXIETY. Coronavirus screen: Client db denies travel out of the [place] in the last 14 days. At this time, the client does not indicate any symptoms associated with coronavirus-19. Initial Sepsis Screen: Does the patient meet any 2 criteria? No. Patient's initial sepsis screen is negative. Does the patient have a suspected source of infection? No. Patient's initial sepsis screen is negative. Risk Assessment: Do you want to hurt yourself or someone else? Patient reports no desire to harm self or others. Onset of symptoms was August 13, 2023. Triage Assessment: 07:20 General: Appears in no apparent distress. General: Appears comfortable, Behavior is db calm, cooperative. Neuro: Level of Consciousness is awake, alert, obeys commands, Oriented to person, place, time, situation. Musculoskeletal: Circulation, motion, and sensation intact. Capillary refill < 3 seconds, Range of motion: intact in all extremities. Historical: - Allergies: 07:11 No Known Allergies; ll1 - PMHx: 07:11 adhd; Anxiety; avoident restrictive food intact disorder; Bipolar disorder; Depression; ll1 drug abuse; - Immunization history:: Adult Immunizations up to date. - Social history:: Smoking status: Patient reports the use of cigarette tobacco products, denies chronic smoking, but will smoke occasionally. Screenin:41 [facility] ED Fall Risk Assessment (Adult) History of falling in the last 3 months, db including since admission No falls in past 3 months (0 pts) Confusion or Disorientation No (0 pts) Intoxicated or Sedated No (0 pts) Impaired Gait No (0 pts) Mobility Assist Device Used No (0 pt) Altered Elimination No (0 pt) Score/Fall Risk Level 0 - 2 = Low Risk Oriented to surroundings, Maintained a safe environment. Abuse screen: Denies threats or abuse. Denies injuries from another. Nutritional screening: No deficits noted. Tuberculosis screening: No symptoms or risk factors identified. Assessment: 07:40 Reassessment: Patient appears in no apparent distress at this time. Patient and/or db family updated on plan of care and expected duration. Pain level reassessed. Patient is alert, oriented x 3, equal unlabored respirations, skin warm/dry/pink. General: Appears in no apparent distress. comfortable, Behavior is calm, cooperative. Pain: Complains of pain in back. Neuro: Level of Consciousness is awake, alert, obeys commands, Oriented to person, place, time, situation. Respiratory: Airway is patent Respiratory effort is even, unlabored, Respiratory pattern is regular, symmetrical. 08:15 Reassessment: PATIENT NOT IN ROOM FOR REASSESSMENT. PT JACKET ON BED. db 08:41 Reassessment: PT DID NOT RETURN TO ROOM. SEEN LEAVING ER WITH DAD BY STAFF. LEFT db JACKET. JACKET PLACED IN REGISTRATION. Vital Signs: 07:14 BP 117 / 82 LA Supine (auto/reg); Pulse 76 MON; Resp 22; Temp 98.3(O); Pulse Ox 99% on ds4 R/A; Weight 52.16 kg; Height 5 ft. 8 in. ; Pain 10/10; 07:14 Body Mass Index 17.49 (52.16 kg, 172.72 cm) ds4 07:14 Pain Scale: Adult ds4 ED Course: 07:05 Patient arrived in ED. mg5 07:09 Donta Alcantara MD is Attending Physician. kdr 07:10 Arm band placed on Patient placed in an exam room, on a stretcher. ll1 07:12 Triage completed. ll1 07:15 Татьяна Marti, JASON is Primary Nurse. db 07:41 Patient has correct armband on for positive identification. Bed in low position. Call db light in reach. Side rails up X 1. Pulse ox on. NIBP on. 07:41 No provider procedures requiring assistance completed. Patient did not have IV access db during this emergency room visit. 08:41 Provided Education on: FOLLOWUP. db Administered Medications: 07:28 Drug: LORazepam PO 1 mg PO once Route: PO; db 08:15 Follow up: Response: No adverse reaction db 07:38 Not Given (Patient Refused): [id number] mg PO once db 07:39 Drug: HYDROcodone-acetaminophen PO 5 mg-325 mg 1 tabs PO once Route: PO; db 08:15 Follow up: Response: No adverse reaction db Medication: 08:41 VIS not applicable for this client. db Outcome: 08:27 Discharge ordered by . kdr 08:41 Discharged to home ambulatory, with family, db 08:41 Condition: stable 08:41 Discharge instructions given to patient, Instructed on discharge instructions, follow up and referral plans. 08:44 Patient left the ED. db Signatures: Donta Alcantara MD MD kdr Dinesh Ma ds4 Sarah Lopez RN RN ll1 Татьяна Marti RN RN db Mela Mao mg5
--- NOTE | 2023-08-13 08:28 | EDPHYS ---
Physician Documentation [facility] Name: Chan Gale Age: 22 yrs Sex: Male : 2000 Arrival Date: 08/13/2023 Time: 07:03 Bed 5 Private MD: ED Physician Donta Alcantara HPI: 08/13 07:39 This 22 yrs old Male presents to ER via Ambulatory with complaints of Back Pain, kdr Anxiety. 07:39 Patient states that he was underneath a cabinet and when he raised up, he hit his back kdr on the edge of the cabinet. Patient states he is having significant pain. Patient denies any other injuries. Patient states that the pain is making him anxious and he is now has an anxiety attack as well. Patient otherwise appears to be uninjured.. Onset: The symptoms/episode began/occurred suddenly, just prior to arrival, 1 hour(s) ago. Severity of symptoms: At their worst the symptoms were mild moderate just prior to arrival, in the emergency department the symptoms are unchanged. The patient has not experienced similar symptoms in the past. The patient has not recently seen a physician. Patient does have a history of anxiety, ADHD, and other psychiatric diagnoses.. Historical: - Allergies: 07:11 No Known Allergies; ll1 - PMHx: 07:11 adhd; Anxiety; avoident restrictive food intact disorder; Bipolar disorder; Depression; ll1 drug abuse; - Immunization history:: Adult Immunizations up to date. - Social history:: Smoking status: Patient reports the use of cigarette tobacco products, denies chronic smoking, but will smoke occasionally. ROS: 07:39 Constitutional: Negative for fever, chills, and weight loss, Cardiovascular: Negative kdr for chest pain, palpitations, and edema, Respiratory: Negative for shortness of breath, cough, wheezing, and pleuritic chest pain, Abdomen/GI: Negative for abdominal pain, nausea, vomiting, diarrhea, and constipation, 07:39 Back: Positive for injury or acute deformity, of the thoracic area and lumbar area, 07:39 Psych: Positive for anxiety, Patient is agitated and tearful, Exam: 07:39 Constitutional: This is a well developed, well nourished patient who is awake, alert, kdr and in no acute distress. Head/Face: Normocephalic, atraumatic. Eyes: Pupils equal round and reactive to light, extra-ocular motions intact. Lids and lashes normal. Conjunctiva and sclera are non-icteric and not injected. Cornea within normal limits. Periorbital areas with no swelling, redness, or edema. Neck: Trachea midline, no thyromegaly or masses palpated, and no cervical lymphadenopathy. Supple, full range of motion without nuchal rigidity, or vertebral point tenderness. No Meningismus. Chest/axilla: Normal chest wall appearance and motion. Nontender with no deformity. No lesions are appreciated. Cardiovascular: Regular rate and rhythm with a normal S1 and S2. No gallops, murmurs, or rubs. Normal PMI, no JVD. No pulse deficits. Respiratory: Lungs have equal breath sounds bilaterally, clear to auscultation and percussion. No rales, rhonchi or wheezes noted. No increased work of breathing, no retractions or nasal flaring. Abdomen/GI: Soft, non-tender, with normal bowel sounds. No distension or tympany. No guarding or rebound. No evidence of tenderness throughout. 07:39 Back: pain, that is mild, of the thoracic area and lumbar area, ROM is normal, normal spinal alignment noted, CVA tenderness, is absent, muscle spasm, is not present, Vital Signs: 07:14 BP 117 / 82 LA Supine (auto/reg); Pulse 76 MON; Resp 22; Temp 98.3(O); Pulse Ox 99% on ds4 R/A; Weight 52.16 kg; Height 5 ft. 8 in. ; Pain 10/10; 07:14 Body Mass Index 17.49 (52.16 kg, 172.72 cm) ds4 07:14 Pain Scale: Adult ds4 MDM: 07:39 Data reviewed: vital signs, nurses notes. kdr 08:27 Patient medically screened. kdr Administered Medications: 07:28 Drug: LORazepam PO 1 mg PO once Route: PO; db 08:15 Follow up: Response: No adverse reaction db 07:38 Not Given (Patient Refused): [id number] mg PO once db 07:39 Drug: HYDROcodone-acetaminophen PO 5 mg-325 mg 1 tabs PO once Route: PO; db 08:15 Follow up: Response: No adverse reaction db Disposition Summary: 08/13/23 08:27 Discharge Ordered Notes: Location: Home kdr Problem: an acute exacerbation kdr Symptoms: have improved kdr Condition: Stable kdr Diagnosis - Low back pain kdr - Generalized anxiety disorder kdr Followup: kdr - With: Private Physician - When: 2 - 3 days - Reason: If symptoms return, Further diagnostic work-up, Recheck today's complaints, Continuance of care, Re-evaluation by your physician Discharge Instructions: - Discharge Summary Sheet kdr - Panic Attack kdr - Acute Back Pain, Adult kdr - Musculoskeletal Pain kdr Forms: - Medication Reconciliation Form kdr - Thank You Letter kdr - Patient Portal Instructions kdr - Leadership Thank You Letter kdr Signatures: Donta Alcantara MD MD kdr Sarah Lopez RN RN ll1 Татьяна Marti RN RN db
[2023-08-13 08:52] VITALS: BP 117/82; TEMP 98.3; O2SAT 99
== END 2023-08-13 08:44 | disposition home or self-care (01) ==
LOC: ER 07:03
DX: M54.50 Low back pain, unspecified (principal); F41.1 Generalized anxiety disorder
CPT/HCPCS: 99283

== ENCOUNTER 2023-08-15 07:17 | Emergency (ER) | payer SELFPAY ==
--- OUTSIDE RECORDS SUMMARY | 2023-08-15 07:23 | XMS REPORT | Continuity of Care Document ---
:2000 Author Organization [facility] t Address [address] [place] [address] [address] [place] [address] Care Team Providers Name Role Phone KENYA FUENTES Primary Care Physician Unavailable KENYA FUENTES Attending Clinician Unavailable DONTA HAYNES Attending Clinician Unavailable Donta Haynes MD Attending Clinician CRISTINA AZUL Attending Clinician Unavailable Kenya Aiken Attending Clinician Doctor Unassigned, Beltrami Attending Clinician Unavailable Marilu Steiner LVN Attending Clinician TRINIDAD ESTRADA Attending Clinician Unavailable Trinidad Estrada DO Attending Clinician MICHAEL ASHRAF Attending Clinician Unavailable Campbell Guerrero MD Attending Clinician [phone] Ayaan Yung DO Attending Clinician Michael Ashraf DO Attending Clinician Kim Patel PHD Attending Clinician KIM PATEL Attending Clinician Unavailable JAZMYN ESPINAL M.D. Attending Clinician Unavailable CHANCE VAZQUEZ APRN Attending Clinician Unavailable KENYA FUENTES Admitting Clinician Unavailable CAMPBELL GUERRERO Admitting Clinician Unavailable Ayaan Yung DO Admitting Clinician Payers Payer Name Policy Type Policy Number Effective Date Expiration Date Beatriz guzmán FOR[facility]LY [facility] [id number] 2018 CHOICE [place] STAR 00:00:00 Problems Condition Condition Condition Status Onset Resolution Last Treating Co mments Source Name Details Category Date Date Treatment Clinician Date Need for Need for Disease Active Unive rs hepatitis hepatitis 1-23 ity of C C 00:00: [place] screening screening 00 [facility] test test Branch Low bone Low [...] Active Univers ALLERGIE Class ity of [facility] Social History Social Habit Start Date Stop Date Quantity Comments Source Exposure to 2022-11-18 2022-11-28 Not sure [facility] SARS-CoV-2 (event) 00:00:00 11:48:00 [facility] Alcohol intake 2022-10-20 2022-10-20 Current University of 00:00:00 00:00:00 non-drinker of [facility] alcohol Branch (finding) Tobacco Comment 2022-09-05 2022-09-05 Vapes Universit y of 00:00:00 00:00:00 [facility] Tobacco use and 2022-09-05 2022-09-05 Smokeless Universit y of exposure 00:00:00 00:00:[address] tobacco non-[address] [facility] dical [place] Cigarettes smoked 2022-09-05 2022-09-05 Univers ity of current (pack per 00:00:00 00:00:00 [facility] ) - Reported Branch History of tobacco 2018-07-08 Cigarette Smoker University of use 00:00:00 [facility] Sex Assigned At 2000 2002 Universit y of 00:00:00 00:00:00 [facility] Smoking Status Start Date Stop Date Source Never smoked tobacco [facility] (finding) Smokes tobacco daily 2022-09-05 00:00:00 Univers ity [facility] Ex-smoker 2022-09-01 00:00:00 2022-09-01 00:00:00 Universi ty [facility] Medications Ordered Filled Start Stop Current Ordering Indication Dosage Frequency Signature Comments Components Source Medication Medication Date Date Medication? Clinician (SIG) Name Name ondansetron 2022- No [id number] 4mg Take 1 Univers (ZOFRAN) 4 12-02-18 tablet by ity of mg tablet 00:00: 04:59 mouth [place] 00 :00 every 8 Medical (eight) Branch hours as needed for Nausea and Vomiting (N/V) for up to 10 days. ondansetron 2022- No [id number] 4mg Take 1 Univers (ZOFRAN) 4 12-02-18 tablet by ity of mg tablet 00:00: 04:59 mouth [place] 00 :00 every 8 Medical (eight) Branch hours as needed for Nausea and Vomiting (N/V) for up to 10 days. OXcarbazepi 2021-09- No 600mg Take 600 Univers ne 600 mg 11-06- mg by ity of tablet 14:31: 00:00 mouth 2 [place] 18 :00 (two) Medical times Branch daily. OXcarbazepi 2021-09- No 600mg Take 600 Univers ne 600 mg 11-06- mg by ity of tablet 14:31: 00:00 mouth 2 [place] 18 :00 (two) Medical times Branch daily. LORazepam 2021-09- No 1mg Take 1 mg Univers mg Cp24 11-06 by mouth 2 ity o f 14:27: 00:00 (two) [place] 07 :00 times Medical daily. Branch LORazepam 2021-09- No 1mg Take 1 mg Univers mg Cp24 11-06 by mouth 2 ity o f 14:27: 00:00 (two) [place] 07 :00 times Medical daily. Branch olanzapine 2022-1 Yes Take by [facility] ers (ZYPREXA 2-09 mouth 2 ity of ORAL) 14:26: (two) [place] [address] times Medical daily. Branch Prescribed by [facility] - Apr 2019 gabapentin 2-1 Yes 600mg Take 600 Un juan 600 mg 2-09 mg by ity of tablet 14:26: mouth in [place] [address] the Medical morning Branch and 600 mg at noon and 600 mg in the evening. olanzapine 2021-1 Yes Take by [employer] ers (ZYPREXA 2-09 mouth 2 ity of ORAL) 14:26: (two) [place] [address] times Medical daily. Branch Prescribed by [facility] - Apr 2019 gabapentin 2021-1 Yes 600mg Take 600 [place] 600 mg 2-09 mg by ity of tablet 14:26: mouth in [place] [address] the Medical morning Branch and 600 mg at noon and 600 mg in the evening. olanzapine 2021-1 Yes Take by [facility] ers (ZYPREXA 2-09 mouth 2 ity of ORAL) 14:26: (two) [place] [address] times Medical daily. Branch Prescribed by [facility] - Apr 2019 gabapentin 2021-1 Yes 600mg Take 600 [place] 600 mg 2-09 mg by ity of tablet 14:26: mouth in [place] [address] the Medical morning Branch and 600 mg at noon and 600 mg in the evening. olanzapine 2021-1 Yes Take by [employer] [facility] (ZYPREXA 2-09 mouth 2 ity of ORAL) 14:26: (two) [place] [address] times Medical daily. Branch Prescribed by [facility] - Apr 2019 gabapentin 2-1 Yes 600mg Take 600 [place] 600 mg 2-09 mg by ity of tablet 14:26: mouth in [place] [address] the Medical morning Branch and 600 mg at noon and 600 mg in the evening. olanzapine 2-1 Yes Take by [employer] [facility] (ZYPREXA 2-09 mouth 2 ity of ORAL) 14:26: (two) [place] [address] times Medical daily. Branch Prescribed by [facility] - Apr 2019 gabapentin 2022-1 Yes 600mg Take 600 [place] 600 mg 2-09 mg by ity of tablet 14:26: mouth in [place] [address] the Medical morning Branch and 600 mg at noon and 600 mg in the evening. olanzapine 2021- Yes Take by [employer] [facility] (ZYPREXA 2-09 mouth 2 ity of ORAL) 14:26: (two) [place] [address] times Medical daily. Branch Prescribed by [facility] - Apr 2019 gabapentin 2021-1 Yes 600mg Take 600 [place] 600 mg 2-09 mg by ity of tablet 14:26: mouth in [place] [address] the Medical morning Branch and 600 mg at noon and 600 mg in the evening. olanzapine 2021- Yes Take by [employer] [facility] (ZYPREXA 2-09 mouth 2 ity of ORAL) 14:26: (two) [place] [address] times Medical daily. Branch Prescribed by [facility] - Apr 2019 gabapentin 2-1 Yes 600mg Take 600 [place] 600 mg 2-09 mg by ity of tablet 14:26: mouth in [place] [address] the Medical morning Branch and 600 mg at noon and 600 mg in the evening. olanzapine 2021-1 Yes Take by [employer] [facility] (ZYPREXA 2-09 mouth 2 ity of ORAL) 14:26: (two) [place] [address] times Medical daily. Branch Prescribed by [facility] - Apr 2019 gabapentin 2021-1 Yes 600mg Take 600 [place] 600 mg 2-09 mg by ity of tablet 14:26: mouth in [place] [address] the Medical morning Branch and 600 mg at noon and 600 mg in the evening. olanzapine 2021-1 Yes Take by [employer] [facility] (ZYPREXA 2-09 mouth 2 ity of ORAL) 14:26: (two) [place] [address] times Medical daily. Branch Prescribed by [facility] - Apr 2019 gabapentin 2021-1 Yes 600mg Take 600 [place] 600 mg 2-09 mg by ity of tablet 14:26: mouth in [place] [address] the Medical morning Branch and 600 mg at noon and 600 mg in the evening. olanzapine 2-1 Yes Take by [employer] [facility] (ZYPREXA 2-09 mouth 2 ity of ORAL) 14:26: (two) [place] [address] times Medical daily. Branch Prescribed by [facility] - Apr 2019 gabapentin 2021-1 Yes 600mg Take 600 [place] 600 mg 2-09 mg by ity of tablet 14:26: mouth in [place] [address] the Medical morning Branch and 600 mg at noon and 600 mg in the evening. olanzapine 2021-1 Yes Take by [employer] [facility] (ZYPREXA 2-09 mouth 2 ity of ORAL) 14:26: (two) [place] [address] times Medical daily. Branch Prescribed by [facility] - Apr 2019 gabapentin 2021-1 Yes 600mg Take 600 [place] 600 mg 2-09 mg by ity of tablet 14:26: mouth in [place] [address] the Medical morning Branch and 600 mg at noon and 600 mg in the evening. olanzapine 2021- Yes Take by [employer] [facility] (ZYPREXA 2-09 mouth 2 ity of ORAL) 14:26: (two) [place] [address] times Medical daily. Branch Prescribed by [facility] Apr 2019 gabapentin 2021-1 Yes 600mg Take 600 [place] 600 mg 2-09 mg by ity of tablet 14:26: mouth in [place] [address] the Medical morning Branch and 600 mg at noon and 600 mg in the evening. olanzapine 2021- Yes Take by [employer] [facility] (ZYPREXA 2-09 mouth 2 ity of ORAL) 14:26: (two) [place] [address] times Medical daily. Branch Prescribed by [facility] Apr 2019 gabapentin 2021-1 Yes 600mg Take 600 [place] 600 mg 2-09 mg by ity of tablet 14:26: mouth in [place] [address] the Medical morning Branch and 600 mg at noon and 600 mg in the evening. olanzapine 2021-1 Yes Take by [employer] [facility] (ZYPREXA 2-09 mouth 2 ity of ORAL) 14:26: (two) [place] [address] times Medical daily. Branch Prescribed by [facility] Apr 2019 gabapentin 2-1 Yes 600mg Take 600 [place] 600 mg 2-09 mg by ity of tablet 14:26: mouth in [place] [address] the Medical morning Branch and 600 mg at noon and 600 mg in the evening. olanzapine 2-1 Yes Take by [employer] [facility] (ZYPREXA 2-09 mouth 2 ity of ORAL) 14:26: (two) [place] [address] times Medical daily. Branch Prescribed by [facility] - Apr 2019 gabapentin 2021-1 Yes 600mg Take 600 [place] 600 mg 2-09 mg by ity of tablet 14:26: mouth in [place] [address] the Medical morning Branch and 600 mg at noon and 600 mg in the evening. olanzapine 2021- Yes Take by [facility] ers (ZYPREXA 2-09 mouth 2 ity of ORAL) 14:26: (two) [place] [address] times Medical daily. Branch Prescribed by [facility] - Apr 2019 gabapentin 2021-1 Yes 600mg Take 600 [place] 600 mg 2-09 mg by ity of tablet 14:26: mouth in [place] [address] the Medical morning Branch and 600 mg at noon and 600 mg in the evening. olanzapine 2021- Yes Take by [facility] ers (ZYPREXA 2-09 mouth 2 ity of ORAL) 14:26: (two) [place] [address] times Medical daily. Branch Prescribed by [facility] Apr 2019 gabapentin 2021-1 Yes 600mg Take 600 [place] 600 mg 2-09 mg by ity of tablet 14:26: mouth in [place] [address] the Medical morning Branch and 600 mg at noon and 600 mg in the evening. olanzapine 2021- Yes Take by [facility] ers (ZYPREXA 2-09 mouth 2 ity of ORAL) 14:26: (two) [place] [address] times Medical daily. Branch Prescribed by [facility] - Apr 2019 gabapentin 2021-1 Yes 600mg Take 600 [place] 600 mg 2-09 mg by ity of tablet 14:26: mouth in [place] [address] the Medical morning Branch and 600 mg at noon and 600 mg in the evening. SERTraline 2021-2021- No 100mg Take 100 U nivers 100 mg 11-06 12-09 mg by ity of tablet 14:19: 00:00 mouth [place] 22 :00 daily. Medical Prescribed Branch by [facility] Apr 2019 SERTraline 2021-2021- No 100mg Take 100 U nivers 100 mg 2-09 12-09 mg by ity of tablet 14:19: 00:00 mouth [place] 22 :00 daily. Medical Prescribed Branch by [facility] - Apr 2019 nicotine 2021- Yes [...] by ity of tablet 17:34: mouth in [place] [address] the Medical morning Branch and 600 mg at noon and 600 mg in the evening. gabapentin 2021-09 Yes 600mg Take 600 [place] 600 mg 2-06 mg by ity of tablet 17:34: mouth in [place] 50 the Medical morning Branch and 600 mg at noon and 600 mg in the evening. gabapentin 2021-09 Yes 600mg Take 600 [place] 600 mg 2-06 mg by ity of tablet 17:34: mouth in [place] 50 the Medical morning Branch and 600 [...] [place] 48 daily. Medical Prescribed Branch by [facility] - Apr 2019 olanzapine 2021-09 Yes Take by [facility] ers (ZYPREXA 2-06 mouth 2 ity of ORAL) 15:34: (two) [place] 48 times Medical daily. Branch Prescribed by [facility] - Apr 2019 LORazepam 1 2021-09 [...] [facility] - Apr 2019 olanzapine 2021-09 Yes Take by [facility] ers (ZYPREXA 2-06 mouth 2 ity of ORAL) 15:34: (two) [place] 48 times Medical daily. Branch Prescribed by [facility] - Apr 2019 LORazepam 1 2021-09 Yes [...] [facility] - Apr 2019 olanzapine 2021-09 Yes Take by [facility] ers (ZYPREXA 2-06 mouth 2 ity of ORAL) 15:34: (two) [place] 48 times Medical daily. Branch Prescribed by [facility] no - Apr 2019 LORazepam 1 2021-09 [...] [place] 48 daily. Medical Pres[facility] Branch [facility] [facility] olanzapine 2021-09 Yes Take by Univ ers (ZYPREXA 2-06 mouth 2 ity of ORAL) 15:34: (two) [place] 48 times Medical daily. Branch [facility] [facility] - Apr 2019 gabapentin 2021-09 Yes 600mg Take 600 [place] 600 mg 2-06 mg by ity of tablet 15:34: mouth in [place] 48 the Medical morning Branch and 600 mg at noon and 600 mg in the evening. LORazepam 1 2021-09 Yes 1mg Take 1 mg U nivers mg Cp24 2-06 by mouth 2 ity of 15:34: (two) [place] 48 times Medical daily. [place] LORazepam 2021-09 Yes 1mg 1 mg, Univers (ATIVAN) 2-06 Oral, QAM, ity o f tablet 1 mg 15:00: First dose [place] 00 on [facility] 09/02/22 at [place] 0900, Until Discontinu ed, Routine OLANZapine 2021-09 Yes 15mg 15 mg, Unive rs (ZyPREXA) 2-06 Oral, QHS, ity of tablet 15 03:00: First dose [place] mg 00 on [facility] 09/01/22 at [place] 2100, Until Discontinu ed, Routine PARoxetine 2021-09 Yes 20mg 20 mg, Unive rs (PAXIL) 2-06 Oral, QHS, ity of tablet 20 03:00: [place] mg 00 on [facility] 09/01/22 at [place] 2100, Until Discontinu ed, Routine gabapentin 2021-09 Yes 600mg 600 mg, Uni vers (NEURONTIN) 2-06 Oral, TID, it y of tablet 600 02:00: First dose [place] mg 00 on [facility] 09/01/22 at Branch 2000, Until Discontinu ed, Routine acetaminoph 2021-09 No 325mg 325 mg, U nivers en 2-05 12-06 Oral, ity of (TYLENOL) 23:49: 00:20 ONCE, 1 [place] tablet 325 00 :00 dose, On Medic al mg [facility] 09/01/22 at 1800, Routine clonazePAM 2021-09 [...] :00 ONCE, 1 Medical dose, On Branch [place] 08/31/22 at 1730, Routine clonazePAM 2021-09 No 1mg 1 mg, Unive rs 0.1 mg/mL 11-01 Oral, TID, ity of oral 20:00: 14:29 First dose [place] suspension 00 :11 on [place] Medical 1 mg 08/31/22 at Branch 1400, [...] use a rass of -3, Starting on [place] 08/31/22 at 1014
In itiate infusion at [...] 40 mg 00 First dose Medical on [place] Branch 08/31/22 at 0900, Until Discontinu ed, Routine dexMEDEtomi 2021-09 No .2ug/kg 0.2-1.5 Univers dine 200 11-01-06 /h mcg/kg/hr ity o f mcg in 0.9 14:33: 00:39 ?61 [place] % NaCl 50 19 :35 (3.05-22.8 Medi patrick mL 75 mL/hr, Branch (PRECEDEX) rounded to RTU IV 3.05-22.88 infusion mL/hr), IV Infusion, TITRATE, Sedation-R ASS score (0 to -1), Starting on [place] 08/31/22 at 0833
In itiate infusion at [...] Scale Goals Determined by Provider, Starting on [place] 08/31/22 at 0203
In itiate infusion at [...] 1 Medical 50 mcg dose, On Branch [place] 08/31/22 at 0200, Routine propofoL IV 2021-09- No 5ug/kg/ 5-50 Un juan infusion 11-01 min mcg/kg/min ity of 07:24: 07:09 ?61 kg [place] 17 :53 (1.83-18.3 Medical mL/hr), IV Branch Infusion, TITRATE, Sedation-R ASS score (0 to -1), Starting on [place] 08/31/22 at 0124
In itiate infusion at [...] STD 50mg in 06:26: 16:14 mL/hr), IV [place] NaCl 0.9% 10 :53 Infusion, Medic al [...] Medical daily. Branch prescribed at [facility] no summer 2018 PARoxetine 2021-09 Yes 20mg [...] mouth ity of tablet 00:00: in the [place] 00 morning. Medical Branch LORazepam 1 2021-09 Yes 1mg Take 1 mg U nivers mg tablet 1-21 by mouth ity of 00:00: in the [place] morning. Medical Branch PARoxetine 2021- Yes 20mg Take 20 mg U nivers 20 mg 1-21 by mouth ity of tablet 00:00: in the [place] morning. Medical Branch LORazepam 1 2021- Yes 1mg Take 1 mg U nivers mg tablet 1-21 by mouth ity of 00:00: in the [place] morning. Medical Branch PARoxetine 2021- Yes 20mg Take 20 mg U nivers 20 mg 1-21 by mouth ity of tablet 00:00: in the [place] morning. Medical Branch LORazepam 1 2021-09 Yes 1mg Take 1 mg U nivers mg tablet 1-21 by mouth ity of 00:00: in the [place] morning. Medical Branch PARoxetine 2021- Yes 20mg Take 20 mg U nivers 20 mg 1-21 by mouth ity of tablet 00:00: in the [place] morning. Medical Branch LORazepam 1 2021-09 Yes 1mg Take 1 mg U nivers mg tablet 1-21 by mouth ity of 00:00: in the [place] morning. Medical Branch PARoxetine 2021- Yes 20mg Take 20 mg U nivers 20 mg 1-21 by mouth ity of tablet 00:00: in the [place] 00 morning. Medical Branch LORazepam 1 2021-09 Yes 1mg Take 1 mg U nivers mg tablet 1-21 by mouth ity of 00:00: in the [place] morning. Medical Branch PARoxetine 2021- Yes 20mg Take 20 mg U nivers 20 mg 1-21 by mouth ity of tablet 00:00: in the [place] 00 morning. Medical Branch LORazepam 1 2021- Yes 1mg Take 1 mg U nivers mg tablet 1-21 by mouth ity of 00:00: in the [place] 00 morning. Medical Branch PARoxetine 2021- Yes 20mg Take 20 mg U nivers 20 mg 1-21 by mouth ity of tablet 00:00: in the [place] 00 morning. Medical Branch LORazepam 1 2021- Yes 1mg Take 1 mg U nivers mg tablet 1-21 by mouth ity of 00:00: in the [place] 00 morning. Medical Branch PARoxetine 2021- Yes 20mg Take 20 mg U nivers 20 mg 1-21 by mouth ity of tablet 00:00: in the [place] 00 morning. Medical Branch LORazepam 2021-09 Yes 1mg Take 1 mg U nivers mg tablet 1-21 by mouth ity of 00:00: in the [place] 00 morning. Medical Branch PARoxetine 2021- Yes 20mg Take 20 mg U nivers 20 mg 1-21 by mouth ity of tablet 00:00: in the [place] morning. Medical Branch LORazepam 1 2021-09 Yes 1mg Take 1 mg U nivers mg tablet 1-21 by mouth ity of 00:00: in the [place] morning. Medical Branch PARoxetine 2021- Yes 20mg Take 20 mg U nivers 20 mg 1-21 by mouth ity of tablet 00:00: in the [place] morning. Medical Branch LORazepam 1 2021-09 Yes 1mg Take 1 mg U nivers mg tablet 1-21 by mouth ity of 00:00: in the [place] morning. Medical Branch PARoxetine 2021- Yes 20mg Take 20 mg U nivers 20 mg 1-21 by mouth ity of tablet 00:00: in the [place] morning. Medical Branch LORazepam 1 2021-09 Yes 1mg Take 1 mg U nivers mg tablet 1-21 by mouth ity of 00:00: in the [place] morning. Medical Branch PARoxetine 2021- Yes 20mg Take 20 mg U nivers 20 mg 1-21 by mouth ity of tablet 00:00: in the [place] morning. Medical Branch LORazepam 1 2021-09 Yes 1mg Take 1 mg U nivers mg tablet 1-21 by mouth ity of 00:00: in the [place] morning. Medical Branch PARoxetine 2021- Yes 20mg Take 20 mg U nivers 20 mg 1-21 by mouth ity of tablet 00:00: in the [place] 00 morning. Medical Branch LORazepam 1 2021-09 Yes 1mg Take 1 mg U nivers mg tablet 1-21 by mouth ity of 00:00: in the [place] 00 morning. Medical Branch PARoxetine 2021- Yes 20mg Take 20 mg U nivers 20 mg 1-21 by mouth ity of tablet 00:00: in the [place] 00 morning. Medical Branch LORazepam 1 2021-09 Yes 1mg Take 1 mg U nivers mg tablet 1-21 by mouth ity of 00:00: in the [place] 00 morning. Medical Branch PARoxetine 2021- Yes 20mg Take 20 mg U nivers 20 mg 1-21 by mouth ity of tablet 00:00: in the [place] 00 morning. Medical Branch LORazepam 2021-09 Yes 1mg Take 1 mg U nivers mg tablet 1-21 by mouth ity of 00:00: in the [place] 00 morning. Medical Branch PARoxetine 2021- Yes 20mg Take 20 mg U nivers 20 mg 1-21 by mouth ity of tablet 00:00: in the [place] 00 morning. Medical Branch LORazepam 1 2021-09 Yes 1mg Take 1 mg U nivers mg tablet 1-21 by mouth ity of 00:00: in the [place] 00 morning. Medical Branch PARoxetine 2021- Yes 20mg Take 20 mg U nivers 20 mg 1-21 by mouth ity of tablet 00:00: in the [place] 00 morning. Medical Branch LORazepam 2021-09 Yes 1mg Take 1 mg U nivers mg tablet 1-21 by mouth ity of 00:00: in the [place] 00 morning. Medical Branch SERTraline 2020-0 Yes 100mg Take 100 [place] 100 mg 1-25 mg by ity of tablet 18:52: mouth [place] 12 daily. Medical Prescribed Branch by [facility] - Apr 2019 SERTraline 2020-0 Yes 100mg Take 100 [place] 100 mg 1-25 mg by ity of tablet 18:52: mouth [place] 12 daily. Medical Prescribed Branch by [facility] - Apr 2019 SERTraline 2020-0 Yes 100mg Take 100 [place] 100 mg 1-25 mg by ity of tablet 18:52: mouth [place] 12 daily. Medical Prescribed Branch by [facility] - Apr 2019 olanzapine 2020-0 Yes Take by [facility] ers (ZYPREXA 1-25 mouth 2 ity of ORAL) 18:52: (two) [place] 09 times Medical daily. Branch Prescribed by [facility] - Apr 2019 olanzapine 2020-0 Yes Take by [facility] ers (ZYPREXA 1-25 mouth 2 ity of ORAL) 18:52: (two) [place] 09 times Medical daily. Branch Prescribed by [facility] no - Apr 2019 olanzapine 2020-0 Yes Take by [facility] ers (ZYPREXA 1-25 mouth 2 ity of ORAL) 18:52: (two) [place] 09 times Medical daily. Branch Prescribed by [facility] no - Apr 2019 gabapentin 2020-0 Yes Take by Univ ers 300 mg/6 mL 1-25 mouth 2 ity o f (6 mL) 18:52: (two) [place] solution 07 times Medical daily. Branch prescribed at [facility] no summer 2018 gabapentin 2020-0 Yes Take by Univ ers 300 mg/6 mL 1-25 mouth 2 ity o f (6 mL) 18:52: (two) [place] solution 07 times Medical daily. Branch prescribed at [facility] no summer 2018 gabapentin 2020-0 Yes Take by Univ ers 300 mg/6 mL 1-25 mouth 2 ity o f (6 mL) 18:52: (two) [place] solution 07 times Medical daily. Branch prescribed at [facility] no summer 2018 OXcarbazepi 2020-0 Yes [...] BY MOUTH TWICE A DAY. busPIRone Yes [id number] 15mg Take 1 [place] 15 mg 6-06 tablet by ity of tablet 00:00: mouth 2 [place] 00 (two) Medical times Branch daily. DULoxetine Yes [id number] 60mg Take 1 U nivers 60 mg 6-04 capsule by ity of capsule 00:00: mouth [place] 00 daily. Medical Branch DULoxetine Yes [id number] 30mg Take 1 U nivers 30 mg 6-04 capsule by ity of capsule 00:00: mouth [place] 00 daily. Medical Branch OXcarbazepi Yes 600mg Take 600 U nivers ne 5-29 mg by ity of (TRILEPTAL) 19:48: mouth 2 [place] as 600 mg 44 (two) Medical tablet times Branch daily. traZODONE 2018- Yes [id number] 25mg Take 0.5 Univers 50 mg 5-29 tablets by ity of tablet 00:00: mouth 2 [place] 00 (two) Medical times Branch daily. Multi-Vitam Multi-Vitam Yes M.A. U T in TABS in TABS Physici ans Vital Signs Vital Name Observation Time Observation Value Comments Source Systolic blood 2022-11-28 104 mm[Hg] University pressure 17:50:00 [facility] Diastolic blood 2022-11-28 52 mm[Hg] [place] o pressure 17:50:00 [place] [facility] Heart rate 2022-11-28 106 /min University of 17:50:00 [facility] Body height 2022-11-28 172.7 cm University of 17:50:00 [facility] Body weight 2022-11-28 62.551 kg University of 17:50:00 [facility] BMI 2022-11-28 20.97 kg/m2 University of 17:50:00 [facility] Oxygen saturation 2022-11-28 93 /min University of in Arterial blood 17:50:00 [place] [facility] Pulse oximetry Branch Systolic blood 2022-10-20 108 mm[Hg] University of pressure 14:09:00 [facility] Branch Diastolic blood 2022-10-20 65 mm[Hg] University o f pressure 14:09:00 [facility] Heart rate 2022-10-20 95 /min University of 14:09:00 [facility] Body temperature 2022-10-20 37.06 Jeana University of 14:09:00 [facility] Body height 2022-10-20 172.7 cm University of 14:09:00 [facility] Body weight 2022-10-20 58.968 kg University of 14:09:00 [facility] BMI 2022-10-20 19.77 kg/m2 University of 14:09:00 [facility] Oxygen saturation 2022-10-20 98 /min University of in Arterial blood 14:09:00 [place] [facility] by Pulse oximetry Branch Systolic blood 2022-09-05 101 mm[Hg] University of pressure 20:22:00 [facility] Diastolic blood 2022-09-05 64 mm[Hg] University o f pressure 20:22:00 [facility] Heart rate 2022-09-05 62 /min University of 20:22:00 [facility] Body temperature 2022-09-05 36.33 Jeana University of 20:22:00 [facility] Body height 2022-09-05 172.7 cm University of 20:22:00 [facility] Body weight 2022-09-05 56.337 kg University of 20:22:00 [facility] BMI 2022-09-05 18.88 kg/m2 University of 20:22:00 [facility] Oxygen saturation 2022-09-05 97 /min University of in Arterial blood 20:22:00 [place] [facility] by Pulse oximetry Branch Systolic blood 2022-09-03 110 mm[Hg] University of pressure 05:40:00 [facility] Diastolic blood 2022-09-03 81 mm[Hg] University o f pressure 05:40:00 [facility] Heart rate 2022-09-03 64 /min University of 05:40:00 [facility] Body temperature 2022-09-03 37.22 Jeana University of 05:40:00 [facility] Respiratory rate 2022-09-03 18 /min University of 05:40:00 [facility] Body height 2022-09-03 172.7 cm University of 05:40:00 [facility] Body weight 2022-09-03 57.153 kg University of 05:40:00 [facility] BMI 2022-09-03 19.16 kg/m2 University 05:40:00 [facility] Oxygen saturation 2022-09-03 100 /min [facility] in Arterial blood 05:40:00 [facility] by Pulse oximetry Branch Systolic blood 2022-09-02 114 mm[Hg] University of pressure 17:17:00 [facility] Diastolic blood 2022-09-02 75 mm[Hg] University o f pressure 17:17:00 [facility] Heart rate 2022-09-02 81 /min University 17:17:00 [facility] Body temperature 2022-09-02 36.61 Jeana University of 17:17:00 [facility] Respiratory rate 2022-09-02 18 /min University of 17:17:00 [facility] Oxygen saturation 2022-09-02 99 /min [facility] in Arterial blood 17:17:00 [facility] by Pulse oximetry Branch Body weight 2022-09-01 61 kg University of 19:40:00 [facility] BMI 2022-09-01 20.45 kg/m2 University of 19:40:00 [facility] Body height 2022-09-01 172.7 cm University of 19:36:00 [facility] BP Systolic 2019-10-20 118 mm[Hg] Location: RUE; [facility] 12:54:00 Position: Sitting BP Diastolic 2019-10-20 53 mm[Hg] Location: RUE; [facility] 12:54:00 Position: Sitting Height 2019-10-20 169 [...] [facility] 10:53:00 Temperature 2019-02-07 98 [degF] [facility] 10:53:00 Procedures Procedure Date / Time Performing Clinician Source Performed [facility] PATIENT FINANCIAL 2022-11-28 17:49:34 Doctor Unassigned, No [facility] POLICY Name Medical Branch EXTERNAL PROVIDER 2022-11-19 06:01:00 Doctor Unassigned, No [facility] RECORDS Name Medical Branch DEXA AXIAL (HIP AND 2022-09-17 19:58:00 [facility] SPINE) Medical Branch EXTERNAL PROVIDER 2022-09-16 06:01:00 Doctor Unassigned, No [facility] RECORDS Name Medical Branch ASSIGNMENT OF BENEFITS 2022-09-05 19:47:49 Doctor Unassigned, No [facility] Name [facility] Branch COMP. METABOLIC PANEL 2022-09-01 10:44:00 Stephen Marilyn [facility] ([id number]) [facility] CBC WITH DIFF 2022-09-01 10:44:00 Stephen [facility] XR CHEST 1 VW 2022-09-01 10:15:[address] [facility] CREATINE KINASE 2022-08-31 09:35:00 Ninfa [facility] Dolly [facility] MAGNESIUM 2022-08-31 09:35:[address] [facility] TROPONIN I 2022-08-31 09:35:[address] [facility] COMP. METABOLIC PANEL 2022-08-31 09:35:00 Jael Coppola [facility] ([id number]) [facility] SALICYLATE 2022-08-31 09:35:[address] [facility] ETHANOL 2022-08-31 09:35:[address] [facility] CBC WITH DIFF 2022-08-31 09:35:[address] [facility] URINE DRUG (IMMUNOASSAY) 2022-08-31 09:07:00 Jael Coppola [facility] COMPREHENSIVE DRUG Medical Bra [facility] SCREEN URINE DRUG (LCMSMS) - 2022-08-31 09:07:00 Jael Coppola [facility] COMPREHENSIVE DRUG PANEL Medical Branch AC PANEL 20 + LACTIC 2022-08-31 09:01:00 Jael Coppola [facility] XR CHEST 1 VW 2022-08-31 05:44:00 Jael Coppola [place] [facility] XR KUB 2022-08-31 05:44:00 Jael Coppola [place] [facility] AUTHORIZATION FOR 2020-08-21 06:01:00 Doctor Unassigned, No [facility] RELEASE OF PHI Name Medical Branch [QLH] CBC (INCLUDES 2019-10-20 00:00:00 [facility] DIFF/PLT) [QL] CMP W/EGFR 2019-10-20 00:00:00 [facility] [QL] LIPID PANEL 2019-10-20 00:00:00 [facility] [QL] TSH, 3RD 2019-10-20 00:00:00 [facility] GENERATION [QH] DRUG 2019-07-20 00:00:00 [facility] SCREEN,COMPREHENSIVE (URINE) [QH] DRUG 2019-02-24 00:00:00 [facility] SCREEN,COMPREHENSIVE (URINE) Encounters Start End Encounter Admission Attending Care Care Encounter Source Date/Time Date/Time Type Type Clinicians Facility Department ID 2023-04-24 2023-04-24 Outpatient R [facility] [id number] Univers 11:00:00 11:00:00 DONTA rojas [facility] 2022-12-30 2022-12-30 [facility] 1.2.840.114 [id number] Univers 00:00:00 00:00:00 [facility] 350.1.13.10 Rl 4.2.7.2.686 [facility] [id number] [facility] AND LI 220 Branch [facility] 2022-12-03 2022-12-03 Outpatient R [facility] [id number] Univers 14:00:00 14:00:00 KENYA rojas [facility] 2022-12-02 2022-12-02 Telephone Alfredo [facility] [id number] Univers 00:00:00 00:00:00 Kenya [facility] 350.1.13.10 [place] 4.2.7.2.686 Sathya as NELSON?BLEA [id number] [place] apryl SERNA [address] MEDICAL OFFICE [facility] 2022-11-28 2022-11-28 Outpatient R [facility] [id number] Univers 12:00:00 13:03:08 DONTA rojas [facility] 2022-11-28 2022-11-28 [facility] [id number] Univers 12:00:00 13:03:08 Visit Donta Bundy HEALTH 350.1.13.10 it y of [place] 4.2.7.2.686 Sathya as NELSON?BLEA [id number] [facility] KAREEM [address] [facility] OFFICE [facility] 2022-11-28 2022-11-28 Orders Doctor BEAULIEU 1.2.840.114 [id number] Univers 00:00:00 00:00:00 Only Unassigned, FRANCA 350.1.13.10 ity of [facility] 4.2.7.2.686 Sathya as [id number] [address] 2022-11-19 2022-11-19 Orders Doctor BRITTNEE 1.2.840.114 [id number] Univers 00:00:00 00:00:00 Only Unassigned, FRANCA 350.1.13.10 ity of [facility] 4.2.7.2.686 Sathya as [id number] [address] 2022-10-20 2022-10-20 Outpatient R [facility] [id number] Univers 08:00:00 08:45:36 KENYA rojas [facility] 2022-10-20 2022-10-20 [facility] 1.2.840.114 [id number] Univers 08:00:00 08:45:36 Visit Kenya HEALTH 350.1.13.10 it y of [place] 4.2.7.2.686 Sathya as NELSON?BLEA [id number] [facility] 044 [facility] OFFICE [facility] 2022-09-23 2022-09-23 [facility]phone [facility] [id number] Univers 00:00:00 00:00:00 [place] HEALTH 350.1.13.10 it y of [place] 4.2.7.2.686 Sathya as NELSON?BLEA [id number] [address] MEDICAL OFFICE [facility] 2022-09-17 2022-09-17 [facility] [id number] Univers 13:39:39 23:59:00 KENYA rojas of [facility] 2022-09-17 2022-09-17 Hospital [facility] 1.2.840.114 [id number] Univers 13:39:39 23:59:00 Encounter Kenya CHAPPELL 350.1.13.10 ity [facility] [place].2.[place] [id number] [facility] [address] 2022-09-16 2022-09-16 Orders Doctor BRITTNEE 1.2.840.114 [id number] Univers 00:00:00 00:00:00 Only Unassigned, FRANCA 350.1.13.10 ity of [facility] 4.2.7.2.686 Sathya as [id number] [address] 2022-09-05 2022-09-05 [facility] [id number] Univers 14:00:00 14:51:04 KENYA rojas [facility] 2022-09-05 2022-09-05 Office [facility] 1.2.840.114 [id number] Univers 14:00:00 14:51:04 Visit Kenya MEDINA 350.1.13.10 it y of [place] 4.2.7.2.686 Sathya as NELSON?BLEA [id number] [address] MEDICAL OFFICE [facility] 2022-09-05 2022-09-05 Orders Doctor BRITTNEE 1.2.840.114 [id number] Univers 00:00:00 00:00:00 Only Unassigned, FRANCA 350.1.13.10 ity of [facility] 4.2.7.2.[id number] [facility] [address] 2022-09-03 2022-09-03 Transition MINERVA Steiner 1.2.840.114 [id number] Univers 00:00:00 00:00:00 of Care Marilu MCMULLEN 350.1.13.10 [place] [place] [id number] [facility] [address] 2022-09-02 2022-09-02 Emergency X NATALIE [facility] ERT [id number] Univers 23:43:00 23:56:00 TRINIDAD ity of [facility] 2022-09-02 2022-09-02 Emergency Natalie [facility] 1.2.840.114 [id number] Univers 23:43:00 23:56:00 Trinidad Svetlana CHAPPELL 350.1.13.10 ity of [place] [address] [id number] [facility] 084 Branch 2022-08-30 2022-09-02 Inpatient X CHAPO [facility] MOOSE [id number] Univers 22:42:00 15:34:00 NOGALES ity [facility] 2022-08-30 2022-09-02 [facility] Campbell Guerrero 1. 2.840.114 [id number] Univers 22:42:00 15:34:00 Encounter Ayaan Yung 350.1.13.10 ity of [facility] 4.2.7.2.[address] [place] [id number] [facility] 093 Branch 2020-08-21 2020-08-21 Orders Doctor BEAULIEU 1.2.840.114 [id number] 00:00:00 00:00:00 Only UnassignedFRANCA 350.1.13.10 [facility] 4.2.7.2.686 [id number] 009 2020-08-21 2020-08-21 Orders Doctor BEAULIEU 1.2.840.114 [id number] Univers 00:00:00 00:00:00 Only UnassignedFRANCA 350.1.13.10 ity of [facility] 4.2.7.2.[id number] [facility] 009 Branch 2019-12-08 2019-12-08 Office Oxana [facility] 1.2.840.114 [id number] 13:05:19 14:05:19 Visit Kim AMRES 350.1.13.10 [place] 4.2.7.2.686 [place] [id number] [facility] 2019-12-08 2019-12-08 Office [facility] 1.2.840.114 [id number] [facility] 13:05:19 14:05:19 Visit Kim N SPECIALTY 350.1.13.10 ity of [place] 4.2.7.2.686 Lisa MCGARRY [id number] [address] 2019-12-08 2019-12-08 Outpatient R [facility] [id number] [facility] 13:15:00 13:15:00 KIM ity o f [facility] 2019-10-20 2019-10-20 Appointmen CHAR ESPINAL Multispecia [id number] [place] 13:00:00 13:00:00 t; JAZMYN ESPINAL M.D. lty - [facility] 2019-07-20 2019-07-20 Appointmen CHAR ESPINAL Psychiatry [id number] [place] 13:00:00 13:00:00 t; JAZMYN ESPINAL M.D. Outpatient Physici [facility] ans [facility] 2019-06-08 2019-06-08 Telephone [facility] 1.2.840.114 [id number] [facility] 00:00:00 00:00:00 Kim N SPECIALTY 350.1.13.10 ity of [place] 4.2.7.2.686 Lisa MCGARRY [id number] [address] 2019-02-24 2019-02-24 Appointmen CHAR ESPINAL [id number] [place] 10:00:00 10:00:00 t; JAZMYN ESPINAL M.D. [place] [facility] SABA, M.D. [facility] 2019-02-07 2019-02-07 Appointmen CHAR VAZQUEZ Multispecia [id number] [place] 10:20:00 10:20:00 t; milton FLETCHER - CHANCE Chirinos APRN, APRN Results Test Description Test Time Test Comments Results Result Comments Source COMP. METABOLIC PANEL ([id number]) 2022-09-01 11:26:16 Test Item Value Reference Range Interpretation Comme nts NA (test code = 4407574721) 138 mmol/L 135-145 K (test code = 6487550559) 3.5 mmol/L 3.5-5.0 S light hemolysis CL (test code = 0623794596) 110 mmol/L 98-108 H CO2 TOTAL (test code = 26 mmol/L 23-31 9570641766) AGAP (test code = 2-16 0807869553) BUN (test code = 9 mg/dL 7-23 Slight hemo lysis 9113065608) GLUCOSE (test code = 99 mg/dL 70-110 3652030242) CREATININE (test code = 0.73 mg/dL 0.60-1.25 6441268310) TOTAL BILI (test code = 0.9 mg/dL 0.1-1.6 5554740701) CALCIUM (test code = 8.2 mg/dL 8.6-10.6 L 0748084350) T PROTEIN (test code = 5.5 g/dL 6.3-8.2 L 1988807893) ALBUMIN (test code = 3.3 g/dL 3.5-5.0 L 6200236212) ALK PHOS (test code = 75 U/L 34-122 Slight hemolysis 3876746304) ALTv (test code = 1742-6) 16 U/L 5-50 AST(SGOT) (test code = 30 U/L 13-40 Sligh t hemolysis 8671792833) eGFR (test code = mL/min/1.73m2 7516126448) KACI (test code = KACI) Association of [...] tests). Lab Interpretation (test Abnormal code = 40733-8) [facility] WITH [id number] 11:03:17 Test Item Value Reference Range Interpretation Comments WBC (test code = See_Comment [Automated 2790-2) message] The sy stem which generated this result transmitted reference range : 4.20 - 10.70 10*3/?L. The reference range was not used to interpret this result as normal/abnormal . RBC (test code = See_Comment L [Automated 589-8) message] The sy stem which generated this [...] RDW-SD (test code = 41.7 fL 38.5-51.6 51956-9) RDW-CV (test code = 13.2 % 12.1-15.4 788-0) PLT (test code = See_Comment [Automated 777-3) message] The sy stem which generated this result transmitted reference range : 150 - 328 10*3/ ?L. The reference r evita was not used to interpret this result as normal/abnormal . MPV (test code = 11.9 fL 9.8-13.0 24159-2) NRBC/100 WBC (test See_Comment [Automat ed code = 1141179810) message] The system which generated this result transmitted reference range : 0.0 - 10.0 /100 WBCs. The refer ence range was not u sed to interpret th is result as normal/abnormal . NRBC x10^3 (test code See_Comment [Auto mated = 8649706055) message] The s ystem which generated this result transmitted reference range : 10*3/?L. The reference range was not used to interpret this result as normal/abnormal . GRAN MAT (NEUT) % 62.3 % (test code = 770-8) IMM GRAN % (test code 0.20 % = 2116096883) LYMPH % (test code = 25.7 % 736-9) MONO % (test code = 8.0 % 5905-5) EOS % (test code = 3.4 % 713-8) BASO % (test code = 0.4 % 706-2) GRAN MAT x10^3(ANC) 5.01 10*3/uL 1.99-6.95 (test code = 3328163971) IMM GRAN x10^3 (test 0.00-0.06 code = 8651365992) LYMPH x10^3 (test code 2.07 10*3/uL 1.09-3.23 = 731-0) MONO x10^3 (test code 0.64 10*3/uL 0.36-1.02 = 742-7) EOS x10^3 (test code = 0.27 10*3/uL 0.06-0.53 711-2) BASO x10^3 (test code 0.03 10*3/uL 0.01-0.09 = 704-7) Lab Interpretation Abnormal (test code = 73758-2) [facility] [id number] 17:58:42 Test Item Value Reference Range Interpretation Comments CK (test code = 8051618986) 180 U/L 33-194 Lab Interpretation (test code = Normal 97872-6) [facility] [id number] 11:09:00 Test Item Value Reference Interpretation Comments Range TROPONIN I (test 0.001 ng/mL See_Comment [Automated code = 6397953097) message] The system which generated this result [...] biotin. Lab Interpretation Normal (test code = 32722-3) [facility]2022-12-04 10:59:14 SALICYLATE<10mg/L111/01/2021 4:59 AM [facility]ORAT[facility] SERVICESTherapeutic Range: ? Analgesic and Antipyretic Use ? 20-100 mg/L ? ? Anti- Inflammatory Use ? 100-250 mg/L Toxic Range: ? Greater than 300 mg/LUnFormerly [facility]2022-[facility]-04 10:59:14ALCOHOL<10mg/dL08/31/2022 4:59 AM [facility] LABORATORY SERVICESToxic Greater than or equal to 80 mg/dL. NOTE: Whole blood values are approximately 10% to 15% lower than serum and plasma.[facility] [id number] 10:59:09 Test Item Value Reference Range Interpretation Comments ACETAMINOP (test code = 10.0-30.0 L 7550874341) KACI (test code = KACI) Toxic: Greater than 200 ug/mL @ 4 hour post ingestion or greater than 50 ug/mL @ 12 hour post ingestion Lab Interpretation (test Abnormal code = 43520-5) [facility]UM2022-12-04 10:58:19 Test Item Value Reference Range Interpretation Comments MAGNESIUM (test code = 2421556947) 1.8 mg/dL 1.7-2.4 Lab Interpretation (test code = Normal 74506-0) [facility]. METABOLIC PANEL (69641)2022-08-31 10:58:18 Test Item Value Reference Range Interpretation Comments NA (test code = 141 mmol/L 135-145 0238722037) K (test code = 4.0 mmol/L 3.5-5.0 0328278179) CL (test code = 110 mmol/L 98-108 H 6360962619) CO2 TOTAL (test code = 25 mmol/L 23-31 0139910363) AGAP (test code = 2-16 4789864736) BUN (test code = 5 mg/dL 7-23 L 7472933698) GLUCOSE (test code = 80 mg/dL 70-110 2860068796) CREATININE (test code = 0.71 mg/dL 0.60-1.25 3295904808) TOTAL BILI (test code = 0.5 mg/dL 0.1-1.7 5386964938) CALCIUM (test code = 7.7 mg/dL 8.6-10.6 L 2968293425) T PROTEIN (test code = 5.2 g/dL 6.3-8.2 L 9605722716) ALBUMIN (test code = 3.3 g/dL 3.5-5.0 L 7435426595) ALK PHOS (test code = 71 U/L 34-122 5552926185) ALTv (test code = 16 U/L 5-50 1742-6) AST(SGOT) (test code = 23 U/L 13-40 1832339287) eGFR (test code = mL/min/1.73m2 0871366340) KACI (test code = KACI) Association of [...] tests). Lab Interpretation Abnormal (test code = 27430-7) [facility] WITH [id number] 09:52:32 Test Item Value Reference Range Interpretation [...] RDW-SD (test code = 41.1 fL 38.5-51.6 86173-9) RDW-CV (test code = 12.9 % 12.1-15.4 788-0) PLT (test code = See_Comment [Automated 777-3) message] The system which generated this result transmit jordon reference range : 150 - 328 10*3/ ?L. The reference range was not u sed to interpret th is result as normal/abnormal . MPV (test code = 11.1 fL 9.8-13.0 45652-2) NRBC/100 WBC (test See_Comment [Automat ed code = 1406618583) message] The system which generated this result transmit jordon reference range : 0.0 - 10.0 /100 WBCs. The reference range was not used to interpret this result as normal/abnormal . NRBC x10^3 (test code See_Comment [Auto mated = 7953426021) message] The system which generated this result transmit jordon reference range : 10*3/?L. The reference range was not used to interpret this result as normal/abnormal . GRAN MAT (NEUT) % 90.1 % (test code = 770-8) IMM GRAN % (test code 0.40 % = 8483236848) LYMPH % (test code = 5.4 % 736-9) MONO % (test code = 3.8 % 5905-5) EOS % (test code = 0.1 % 713-8) BASO % (test code = 0.2 % 706-2) GRAN MAT x10^3(ANC) 14.75 10*3/uL 1.99-6.95 H (test code = 3692576474) IMM GRAN x10^3 (test 0.06 10*3/uL 0.00-0.06 code = 8108345726) LYMPH x10^3 (test code 0.88 10*3/uL 1.09-3.23 L = 731-0) MONO x10^3 (test code 0.62 10*3/uL 0.36-1.02 = 742-7) EOS x10^3 (test code = 0.06-0.53 L 711-2) BASO x10^3 (test code 0.03 10*3/uL 0.01-0.09 = 704-7) Lab Interpretation Abnormal (test code = 22848-3) [facility] + Lactic [id number] 09:16:12 Test Item Value Reference Range Interpretation Comments PH (test code = 2) 7.35-7.45 PCO2 (test code = See_Comment [Automate d 1241577172) message] The sy stem which generated this result transmitted reference range : 35 - 45 mmHg. The reference range was not used to interpret this result as normal/abnormal . PO2 (test code = See_Comment H [Automated 3259567261) message] The sy stem which generated this result transmitted reference range : 80 - 100 mmHg. The reference range was not used to interpret this result as normal/abnormal . HCO3 (test code = See_Comment L [Automate d 1084812483) message] The sy stem which generated this result transmitted reference range : 22 - 26 mEq/L. The reference range was not used to interpret this result as normal/abnormal . BE (test code = See_Comment L [Automated 5070951990) message] The sy stem which generated this result transmitted reference range : -3.0 - 3.0 mEq/ L. The reference r evita was not used to interpret this result as normal/abnormal . THB (test code = 13.2 g/dL 13.5-18.0 L 8620383891) %O2HB (test code = 98.8 % 94.0-99.0 4007375135) %COHB ART (test code = 0.3 % 0.0-1.5 8328908471) %METHB ART (test code = 0.2 % 0.4-1.5 L 1646155263) VOL%O2 ART (test code = 18.8 % 15.0-23.0 4990467775) NA (test code = 139 mmol/L 135-145 8375521500) K+ (test code = 3.9 mmol/L 3.5-5.0 0663627026) AC CA IONZ (test code = 4.60 mg/dL 4.50-5.30 9874508286) GLUCOSE (test code = 88 mg/dL 70-110 1402298087) LACTIC ACID (test code 1.04 mmol/L 0.50-2.20 = 4406406527) Lab Interpretation Abnormal (test code = 62985-1) [facility][H] Drug Screen Urine (9 Drugs)2019-07-20 15:46:01 [...] Propoxyphene Negative Negative Screen (test code = 96801-5) Urine Drug Screen Note See Note Drugs [...] ng/mLMethadone 300 ng/mLUrine alco hol 20 mg/dL [facility][H] Drug Screen Urine (9 Drugs)2019-02-24 13:44:01 [...] Propoxyphene Negative Negative Screen (test code = 69055-4) Urine Drug Screen Note See Note Drugs [...]
--- NOTE | 2023-08-15 08:05 | ER ---
Nurse's Notes [facility] Name: Chan Gale Age: 22 yrs Sex: Male : 2000 Arrival Date: 08/15/2023 Time: 07:17 Bed 5 Private MD: Diagnosis: Arm Laceration Left/ Open wound of forearm-superficial, cat scratch Presentation: 08/15 07:24 Chief complaint: Patient states: cat scratched him 3 days ago, he had a dressing on it iw and he pulled it off and it opened back up , wound to left forearm area. Coronavirus screen: At this time, the client does not indicate any symptoms associated with coronavirus-19. Ebola Screen: Patient negative for fever greater than or equal to 101.5 degrees Fahrenheit, and additional compatible Ebola Virus Disease symptoms Patient denies exposure to infectious person. Patient denies travel to an Ebola-affected area in the 21 days before illness onset. No symptoms or risks identified at this time. Initial Sepsis Screen: Does the patient meet any 2 criteria? No. Patient's initial sepsis screen is negative. Does the patient have a suspected source of infection? No. Patient's initial sepsis screen is negative. Risk Assessment: Do you want to hurt yourself or someone else? Patient reports no desire to harm self or others. Onset of symptoms was August 12, 2023. 07:24 Method Of Arrival: Ambulatory iw 07:24 Acuity: SIRISHA 4 iw Historical: - Allergies: 07:26 No Known Allergies; iw - PMHx: 07:26 adhd; Anxiety; avoident restrictive food intact disorder; avoident restrictive food iw intact disorder; Bipolar disorder; Depression; drug abuse; - Immunization history:: Adult Immunizations up to date. - Family history:: not pertinent. - Social history:: Smoking status: Patient denies any tobacco usage or history of. Screenin:30 [facility] ED Fall Risk Assessment (Adult) History of falling in the last 3 months, ko1 including since admission No falls in past 3 months (0 pts) Confusion or Disorientation No (0 pts) Intoxicated or Sedated No (0 pts) Impaired Gait No (0 pts) Mobility Assist Device Used No (0 pt) Altered Elimination No (0 pt) Score/Fall Risk Level 0 - 2 = Low Risk Oriented to surroundings, Maintained a safe environment, Educated pt \T\ family on fall prevention, incl call for assistance when getting out of bed, Assessed \T\ reinforced patient's understanding of fall precautions, Provided non-skid footwear, Hourly rounding (assess needs \T\ fall precautionary measures) done, Used ambulatory aids as needed (educated on \T\ assisted with), Used gait belt as appropriate. Abuse screen: Denies threats or abuse. Denies injuries from another. Nutritional screening: No deficits noted. Tuberculosis screening: No symptoms or risk factors identified. Assessment: 07:30 General: Appears in no apparent distress. comfortable, Behavior is calm, cooperative, ko1 appropriate for age. Pain: Denies pain. Neuro: No deficits noted. Cardiovascular: No deficits noted. Respiratory: No deficits noted. GI: No deficits noted. : No deficits noted. EENT: No deficits noted. Derm: Wound noted left arm and dorsal aspect of left forearm. Musculoskeletal: No deficits noted. Vital Signs: 07:24 BP 129 / 77; Pulse 89; Resp 16; Temp 98.1; Pulse Ox 100% on R/A; Weight 49.9 kg; Height iw 5 ft. 9 in. ; 07:30 BP 126 / 74; Pulse 82; Resp 16; Pulse Ox 99% ; ko1 08:17 BP 128 / 70; Pulse 84; Resp 16; Pulse Ox 99% ; ko1 07:24 Body Mass Index 16.24 (49.90 kg, 175.26 cm) iw ED Course: 07:19 Patient arrived in ED. rg4 07:24 William Espinosa MD is Attending Physician. jasmeet 07:26 Triage completed. iw 07:26 Arm band placed on. iw 07:30 Patient has correct armband on for positive identification. Bed in low position. Call ko1 light in reach. Pulse ox on. NIBP on. Door closed. Noise minimized. 07:30 No provider procedures requiring assistance completed. Patient did not have IV access ko1 during this emergency room visit. 08:02 Viktoria Harrison, RN is Primary Nurse. ko1 08:16 Provided Education on: wound care. ko1 08:16 Dressings: Kerlix X 1; dorsal aspect of left forearm non-adherent dressing x 1 dorsal ko1 aspect of left forearm. Wound care: to laceration located on dorsal aspect of left forearm was cleaned with Betadine, dressed with Kerlix. Administered Medications: 08:10 Drug: Amoxicillin-Clavulanate PO 875 mg PO once Route: PO; ko1 08:25 Follow up: Response: No adverse reaction ko1 08:10 Drug: Mupirocin Topical Ointment 2 % 1 application Topical once Route: Topical; Site: ko1 left forearm; 08:21 Follow up: Response: No adverse reaction ko1 Medication: 07:30 VIS not applicable for this client. ko1 Outcome: 08:04 Discharge ordered by MD. alamo 08:25 Discharged to home ambulatory, ko1 08:25 Condition: stable 08:25 Discharge instructions given to patient, Instructed on discharge instructions, follow up and referral plans. medication usage, wound care, Demonstrated understanding of instructions, follow-up care, medications, wound care, Prescriptions given X 2, 08:26 Patient left the ED. ko1 Signatures: William Espinosa MD MD cha Williams, Irene, Kaylie Miles RN rg4 Viktoria Harrison RN RN ko1
--- NOTE | 2023-08-15 08:05 | EDPHYS ---
Physician Documentation [facility] Name: Chan Gale Age: 22 yrs Sex: Male : 2000 Arrival Date: 08/15/2023 Time: 07:17 Bed 5 Private MD: ED Physician William Espinosa HPI: 08/15 07:58 This 22 yrs old Male presents to ER via Ambulatory with complaints of Wound jasmeet Check. 07:58 Patient presents to ED for recheck of: laceration. The affected area is on the dorsal jasmeet aspect of left forearm. Previous treatment: The patient was initially treated 3 day(s) ago. Progress: The patient reports no change in pain. The patient has not experienced similar symptoms in the past. Historical: - Allergies: 07:26 No Known Allergies; iw - PMHx: 07:26 adhd; Anxiety; avoident restrictive food intact disorder; avoident restrictive food iw intact disorder; Bipolar disorder; Depression; drug abuse; - Immunization history:: Adult Immunizations up to date. - Family history:: not pertinent. - Social history:: Smoking status: Patient denies any tobacco usage or history of. ROS: 07:58 Constitutional: Negative for fever, chills, and weight loss, Eyes: Negative for injury, jasmeet pain, redness, and discharge, ENT: Negative for injury, pain, and discharge, Neck: Negative for injury, pain, and swelling, Cardiovascular: Negative for chest pain, palpitations, and edema, Respiratory: Negative for shortness of breath, cough, wheezing, and pleuritic chest pain, Abdomen/GI: Negative for abdominal pain, nausea, vomiting, diarrhea, and constipation, Back: Negative for injury and pain, : Negative for injury, bleeding, discharge, and swelling, Skin: Negative for injury, rash, and discoloration, Neuro: Negative for headache, weakness, numbness, tingling, and seizure, Psych: Negative for depression, anxiety, suicide ideation, homicidal ideation, and hallucinations, Allergy/Immunology: Negative for hives, rash, and allergies, Endocrine: Negative for neck swelling, polydipsia, polyuria, polyphagia, and marked weight changes, Hematologic/Lymphatic: Negative for swollen nodes, abnormal bleeding, and unusual bruising, 07:58 MS/extremity: Positive for pain, tenderness, of the left arm and dorsal aspect of left forearm, Exam: 07:58 Constitutional: This is a well developed, well nourished patient who is awake, alert, jasmeet and in no acute distress. Head/Face: Normocephalic, atraumatic. Eyes: Pupils equal round and reactive to light, extra-ocular motions intact. Lids and lashes normal. Conjunctiva and sclera are non-icteric and not injected. Cornea within normal limits. Periorbital areas with no swelling, redness, or edema. ENT: Nares patent. No nasal discharge, no septal abnormalities noted. Tympanic membranes are normal and external auditory canals are clear. Oropharynx with no redness, swelling, or masses, exudates, or evidence of obstruction, uvula midline. Mucous membranes moist. Neck: Trachea midline, no thyromegaly or masses palpated, and no cervical lymphadenopathy. Supple, full range of motion without nuchal rigidity, or vertebral point tenderness. No Meningismus. Chest/axilla: Normal chest wall appearance and motion. Nontender with no deformity. No lesions are appreciated. Cardiovascular: Regular rate and rhythm with a normal S1 and S2. No gallops, murmurs, or rubs. Normal PMI, no JVD. No pulse deficits. Respiratory: Lungs have equal breath sounds bilaterally, clear to auscultation and percussion. No rales, rhonchi or wheezes noted. No increased work of breathing, no retractions or nasal flaring. Abdomen/GI: Soft, non-tender, with normal bowel sounds. No distension or tympany. No guarding or rebound. No evidence of tenderness throughout. Back: No spinal tenderness. No costovertebral tenderness. Full range of motion. Male : Normal genitalia with no discharge or lesions. Skin: Warm, dry with normal turgor. Normal color with no rashes, no lesions, and no evidence of cellulitis. Neuro: Awake and alert, GCS 15, oriented to person, place, time, and situation. Cranial nerves II-XII grossly intact. Motor strength 5/5 in all extremities. Sensory grossly intact. Cerebellar exam normal. Normal gait. Psych: Awake, alert, with orientation to person, place and time. Behavior, mood, and affect are within normal limits. 07:58 Musculoskeletal/extremity: Extremities: erythema, pain, ROM: intact in all extremities, Circulation is intact in all extremities. Sensation intact. Compartment Syndrome exam of affected extremity: is normal. DVT Exam: no swelling, negative Homans' sign noted on exam, no appreciated bluish discoloration, no erythema, no increased warmth, pain, tenderness, 07:58 Skin: cellulitis, is not appreciated, induration, that is mild is noted, injury, laceration(s), the wound is approximately 3 cm(s), with a depth of .025 cm(s), of the dorsal aspect of left forearm, Vital Signs: 07:24 BP 129 / 77; Pulse 89; Resp 16; Temp 98.1; Pulse Ox 100% on R/A; Weight 49.9 kg; Height iw 5 ft. 9 in. ; 07:30 BP 126 / 74; Pulse 82; Resp 16; Pulse Ox 99% ; ko1 08:17 BP 128 / 70; Pulse 84; Resp 16; Pulse Ox 99% ; ko1 07:24 Body Mass Index 16.24 (49.90 kg, 175.26 cm) iw MDM: 07:24 Patient medically screened. jasmeet 08:01 Differential diagnosis: cellulitis. Data reviewed: vital signs, nurses notes. [facility] Consideration of Admission/Observation Escalation of care including admission/observation considered. I considered the following discharge prescriptions or medication management in the emergency department Medications were administered in the Emergency Department. See MAR. Test considered but Not performed: Labs: no labs no x rays. Care significantly affected by the following chronic conditions: pysch, mental illiness. Counseling: I had a detailed discussion with the patient and/or guardian regarding the historical points, exam findings, and any diagnostic results supporting the discharge/admit diagnosis, the need for outpatient follow up, a family practitioner. 08:02 ED course: not suicidal , not homicidal, calm, not self inflicted , cat scratches. [facility] 08/15 07:57 Order name: Wound Care; Complete Time: 08:10 jasmeet Administered Medications: 08:10 Drug: Amoxicillin-Clavulanate PO 875 mg PO once Route: PO; ko1 08:25 Follow up: Response: No adverse reaction ko1 08:10 Drug: Mupirocin Topical Ointment 2 % 1 application Topical once Route: Topical; Site: ko1 left forearm; 08:21 Follow up: Response: No adverse reaction ko1 Disposition Summary: 08/15/23 08:04 Discharge Ordered Notes: Location: Home [facility] Problem: new [facility] Symptoms: have improved jasmeet Condition: Stable jasmeet Diagnosis - Arm Laceration Left/ Open wound of forearm - superficial, cat scratch jasmeet Followup: jasmeet - With: Private Physician - When: 2 - 3 days - Reason: Recheck today's complaints, Continuance of care, Re-evaluation by your physician Discharge Instructions: - Discharge Summary Sheet [facility] - Laceration Care, Adult, [id number] [facility] Forms: - Medication Reconciliation Form [facility] - Thank You Letter [facility] - Antibiotic Education [facility] - Prescription Opioid Use [facility] - Patient Portal Instructions [facility] - Leadership Thank You Letter [facility] Prescriptions: - Centany 2 % Topical ointment - apply 1 application TOPICAL route 3 times per day; 15 gram tube; Refills: 0, [facility] Product Selection Permitted - Augmentin 875-125 mg Oral tablet - take 1 tablet ORAL route every 12 hours for 7 days; 14 tablet; Refills: 0, [facility] Product Selection Permitted Signatures: William Espinosa MD MD cha Williams, Irene RN Viktoria Pearson RN RN ko1
[2023-08-15] MEDS ORDERED: AMOX/K CLAV 875 MG TAB ONE (08:19)
[2023-08-15] MEDS ORDERED: MUPIROCIN 2% OINT 22GM TUBE TOP ONE (08:19)
[2023-08-15 08:31] VITALS: TEMP 98.1
[2023-08-15 08:32] VITALS: O2SAT 99
[2023-08-15 08:33] VITALS: BP 128/70
== END 2023-08-15 08:26 | disposition home or self-care (01) ==
LOC: ER 07:17
DX: S51.812A Laceration without foreign body of left forearm, initial encounter (principal); W55.03XA Scratched by cat, initial encounter
CPT/HCPCS: 99284

== ENCOUNTER 2023-08-23 01:31 | Emergency (ER) | payer SELFPAY ==
--- OUTSIDE RECORDS SUMMARY | 2023-08-23 01:35 | XMS REPORT | Continuity of Care Document ---
:2000 Author Organization [facility] t Address [address] [place] [address] [address] [place] [address] Care Team Providers Name Role Phone KENYA FUENTES Primary Care Physician Unavailable KENYA FUENTES Attending Clinician Unavailable DONTA HAYNES Attending Clinician Unavailable Donta Haynes MD Attending Clinician CRISTINA AZUL Attending Clinician Unavailable Kenya Aiken Attending Clinician Doctor Unassigned, [place] Attending Clinician Unavailable Marilu Steiner LVN Attending Clinician TRINIDAD ESTRADA Attending Clinician Unavailable Trinidad Estrada DO Attending Clinician MICHAEL ASHRAF Attending Clinician Unavailable Campbell Guerrero MD Attending Clinician [phone] Ayaan Yung DO Attending Clinician Michael Ashraf DO Attending Clinician Kim Patel PHD Attending Clinician KIM PATEL Attending Clinician Unavailable JAZMYN ESPINAL M.D. Attending Clinician Unavailable CHANCE VAZQUEZ APRN Attending Clinician Unavailable KENYA FUENTES Admitting Clinician Unavailable CAMPBELL GUERRERO Admitting Clinician Unavailable Ayaan Yung DO Admitting Clinician Payers Payer Name Policy Type Policy Number Effective Date Expiration Date Beatriz guzmán [facility] [id number] 2018 CHOICE [place] STAR 00:00:00 Problems Condition Condition Condition Status Onset Resolution Last Treating Co mments Source Name Details Category Date Date Treatment Clinician Date Need for Need for Disease Active Unive rs hepatitis hepatitis 1-23 ity of C C 00:00: [place] screening screening 00 [facility] test test Branch Low bone Low bone [...] Active Univers ALLERGIE Class ity of S [facility] Social History Social Habit Start Date Stop Date Quantity Comments Source Exposure to 2022-11-18 2022-11-28 Not sure [facility] SARS-CoV-2 (event) 00:00:00 11:48:00 [facility] Alcohol intake 2022-10-20 2022-10-20 Current University of 00:00:00 00:00:00 non-drinker of [facility] alcohol Branch (finding) Tobacco Comment 2022-09-05 2022-09-05 Vapes Universit y of 00:00:00 00:00:00 [facility] Tobacco use and 2022-09-05 2022-09-05 Smokeless Universit y of exposure 00:00:00 00:00:00 tobacco non-user [facility] [place] Cigarettes smoked 2022-09-05 2022-09-05 Univers ity of current (pack per 00:00:00 00:00:00 [facility] ) - Reported Branch History of tobacco 2018-07-08 Cigarette Smoker University of use 00:00:00 [facility] Sex Assigned At [birth year] Universit y of 00:00:00 00:00:00 [facility] Smoking Status Start Date Stop Date Source Never smoked tobacco [facility]finding[facility] Smokes tobacco daily 2022-09-05 00:00:00 Univers ity [facility] Ex-smoker 2022-09-01 00:00:00 2022-09-01 00:00:00 Universi ty [facility] Medications Ordered Filled Start Stop Current Ordering Indication Dosage Frequency Signature Comments Components Source Medication Medication Date Date Medication? Clinician (SIG) Name Name ondansetron 2022- No [id number] 4mg Take 1 Univers (ZOFRAN) 4 12-02-18 tablet by ity of mg tablet 00:00: 04:59 mouth [place] 00 :00 every 8 Medical (eight) Branch hours as needed for Nausea and Vomiting (N/V) for up to 10 days. ondansetron 2022- No [id number] 4mg Take 1 Univers (ZOFRAN) 4 12-02-18 tablet by ity of mg tablet 00:00: 04:59 mouth [place] 00 :00 every 8 Medical (eight) Branch hours as needed for Nausea and Vomiting (N/V) for up to 10 days. OXcarbazepi 2021-09- No 600mg Take 600 Univers ne 600 mg 11-06- mg by ity of tablet 14:31: 00:00 mouth 2 [place] 18 :00 (two) Medical times Branch daily. OXcarbazepi 2021-09- No 600mg Take 600 Univers ne 600 mg 11-06- mg by ity of tablet 14:31: 00:00 mouth 2 [place] 18 :00 (two) Medical times Branch daily. LORazepam 2021-09- No 1mg Take 1 mg Univers mg Cp24 11-06 by mouth 2 ity o f 14:27: 00:00 (two) [place] 07 :00 times Medical daily. Branch LORazepam 2021-09- No 1mg Take 1 mg Univers mg Cp24 11-06 by mouth 2 ity o f 14:27: 00:00 (two) [place] 07 :00 times Medical daily. Branch olanzapine 2022-1 Yes Take by [facility] ers (ZYPREXA 2-09 mouth 2 ity of ORAL) 14:26: (two) [place] [address] times Medical daily. Branch Prescribed by [facility] - Apr 2019 gabapentin 2-1 Yes 600mg Take 600 Un juan 600 mg 2-09 mg by ity of tablet 14:26: mouth in [place] [address] the Medical morning Branch and 600 mg at noon and 600 mg in the evening. olanzapine 2021-1 Yes Take by [employer] [facility] ers (ZYPREXA 2-09 mouth 2 ity of ORAL) 14:26: (two) [place] [address] times Medical daily. Branch Prescribed by [facility] - Apr 2019 gabapentin 2021-1 Yes 600mg Take 600 Un [place] 600 mg 2-09 mg by ity of tablet 14:26: mouth in [place] [address] the Medical morning Branch and 600 mg at noon and 600 mg in the evening. olanzapine 2021-1 Yes Take by [facility] ers (ZYPREXA 2-09 mouth 2 ity of ORAL) 14:26: (two) [place] [address] times Medical daily. Branch Prescribed by [facility] - Apr 2019 gabapentin 2021-1 Yes 600mg Take 600 Un [place] 600 mg 2-09 mg by ity of tablet 14:26: mouth in [place] [address] the Medical morning Branch and 600 mg at noon and 600 mg in the evening. olanzapine 2021-1 Yes Take by [employer] ers (ZYPREXA 2-09 mouth 2 ity of ORAL) 14:26: (two) [place] [address] times Medical daily. Branch Prescribed by [facility] - Apr 2019 gabapentin 2-1 Yes 600mg Take 600 Un [place] 600 mg 2-09 mg by ity of tablet 14:26: mouth in [place] [address] the Medical morning Branch and 600 mg at noon and 600 mg in the evening. olanzapine 2-1 Yes Take by [employer] ers (ZYPREXA 2-09 mouth 2 ity of ORAL) 14:26: (two) [place] [address] times Medical daily. Branch Prescribed by [facility] - Apr 2019 gabapentin 2022-1 Yes 600mg Take 600 [place] 600 mg 2-09 mg by ity of tablet 14:26: mouth in [place] [address] the Medical morning Branch and 600 mg at noon and 600 mg in the evening. olanzapine 2021- Yes Take by [employer] ers (ZYPREXA 2-09 mouth 2 ity of ORAL) 14:26: (two) [place] [address] times Medical daily. Branch Prescribed by [facility] - Apr 2019 gabapentin 2021-1 Yes 600mg Take 600 [place] 600 mg 2-09 mg by ity of tablet 14:26: mouth in [place] [address] the Medical morning Branch and 600 mg at noon and 600 mg in the evening. olanzapine 2021- Yes Take by [employer] ers (ZYPREXA 2-09 mouth 2 ity of ORAL) 14:26: (two) [place] [address] times Medical daily. Branch Prescribed by [facility] - Apr 2019 gabapentin 2-1 Yes 600mg Take 600 [place] 600 mg 2-09 mg by ity of tablet 14:26: mouth in [place] [address] the Medical morning Branch and 600 mg at noon and 600 mg in the evening. olanzapine 2021-1 Yes Take by [employer] ers (ZYPREXA 2-09 mouth 2 ity of ORAL) 14:26: (two) [place] [address] times Medical daily. Branch Prescribed by [facility] - Apr 2019 gabapentin 2021-1 Yes 600mg Take 600 [place] 600 mg 2-09 mg by ity of tablet 14:26: mouth in [place] [address] the Medical morning Branch and 600 mg at noon and 600 mg in the evening. olanzapine 2021-1 Yes Take by [employer] ers (ZYPREXA 2-09 mouth 2 ity of ORAL) 14:26: (two) [place] [address] times Medical daily. Branch Prescribed by [facility] - Apr 2019 gabapentin 2021-1 Yes 600mg Take 600 [place] 600 mg 2-09 mg by ity of tablet 14:26: mouth in [place] [address] the Medical morning Branch and 600 mg at noon and 600 mg in the evening. olanzapine 2-1 Yes Take by [employer] ers (ZYPREXA 2-09 mouth 2 ity of ORAL) 14:26: (two) [place] [address] times Medical daily. Branch Prescribed by [facility] - Apr 2019 gabapentin 2021-1 Yes 600mg Take 600 Un [place] 600 mg 2-09 mg by ity of tablet 14:26: mouth in [place] [address] the Medical morning Branch and 600 mg at noon and 600 mg in the evening. olanzapine 2021-1 Yes Take by [employer] ers (ZYPREXA 2-09 mouth 2 ity of ORAL) 14:26: (two) [place] [address] times Medical daily. Branch Prescribed by [facility] - Apr 2019 gabapentin 2021-1 Yes 600mg Take 600 Un [place] 600 mg 2-09 mg by ity of tablet 14:26: mouth in [place] [address] the Medical morning Branch and 600 mg at noon and 600 mg in the evening. olanzapine 2021- Yes Take by [employer] ers (ZYPREXA 2-09 mouth 2 ity of ORAL) 14:26: (two) [place] [address] times Medical daily. Branch Prescribed by [facility] Apr 2019 gabapentin 2021-1 Yes 600mg Take 600 [place] 600 mg 2-09 mg by ity of tablet 14:26: mouth in [place] [address] the Medical morning Branch and 600 mg at noon and 600 mg in the evening. olanzapine 2021- Yes Take by [employer] ers (ZYPREXA 2-09 mouth 2 ity of ORAL) 14:26: (two) [place] [address] times Medical daily. Branch Prescribed by [facility] Apr 2019 gabapentin 2021-1 Yes 600mg Take 600 [place] 600 mg 2-09 mg by ity of tablet 14:26: mouth in [place] [address] the Medical morning Branch and 600 mg at noon and 600 mg in the evening. olanzapine 2021-1 Yes Take by [employer] ers (ZYPREXA 2-09 mouth 2 ity of ORAL) 14:26: (two) [place] [address] times Medical daily. Branch Prescribed by [facility] Apr 2019 gabapentin 2-1 Yes 600mg Take 600 [place] 600 mg 2-09 mg by ity of tablet 14:26: mouth in [place] [address] the Medical morning Branch and 600 mg at noon and 600 mg in the evening. olanzapine 2-1 Yes Take by [employer] ers (ZYPREXA 2-09 mouth 2 ity of ORAL) 14:26: (two) [place] [address] times Medical daily. Branch Prescribed by [facility] - Apr 2019 gabapentin 2021-1 Yes 600mg Take 600 [place] 600 mg 2-09 mg by ity of tablet 14:26: mouth in [place] [address] the Medical morning Branch and 600 mg at noon and 600 mg in the evening. olanzapine 2021- Yes Take by [facility] ers (ZYPREXA 2-09 mouth 2 ity of ORAL) 14:26: (two) [place] [address] times Medical daily. Branch Prescribed by [facility] - Apr 2019 gabapentin 2021-1 Yes 600mg Take 600 [place] 600 mg 2-09 mg by ity of tablet 14:26: mouth in [place] [address] the Medical morning Branch and 600 mg at noon and 600 mg in the evening. olanzapine 2021- Yes Take by [facility] ers (ZYPREXA 2-09 mouth 2 ity of ORAL) 14:26: (two) [place] [address] times Medical daily. Branch Prescribed by [facility] Apr 2019 gabapentin 2021-1 Yes 600mg Take 600 [place] 600 mg 2-09 mg by ity of tablet 14:26: mouth in [place] [address] the Medical morning Branch and 600 mg at noon and 600 mg in the evening. olanzapine 2021- Yes Take by [facility] ers (ZYPREXA 2-09 mouth 2 ity of ORAL) 14:26: (two) [place] [address] times Medical daily. Branch Prescribed by [facility] - Apr 2019 gabapentin 2021-1 Yes 600mg Take 600 Un [place] 600 mg 2-09 mg by ity of tablet 14:26: mouth in [place] [address] the Medical morning Branch and 600 mg at noon and 600 mg in the evening. SERTraline 2021-2021- No 100mg Take 100 U nivers 100 mg 11-06 12-09 mg by ity of tablet 14:19: 00:00 mouth [place] 22 :00 daily. Medical Prescribed Branch by [facility] Apr 2019 SERTraline 2021-2021- No 100mg Take 100 U nivers 100 mg 2-09 12-09 mg by ity of tablet 14:19: 00:00 mouth [place] 22 :00 daily. Medical Prescribed Branch by [facility] - Apr 2019 nicotine 2021- Yes 1{patch [...] of tablet 17:34: mouth in [place] [address] the Medical morning Branch and 600 mg at noon and 600 mg in the evening. gabapentin 2021-09 Yes 600mg Take 600 Un [place] 600 mg 2-06 mg by ity of tablet 17:34: mouth in [place] 50 the Medical morning Branch and 600 mg at noon and 600 mg in the evening. gabapentin 2021-09 Yes 600mg Take 600 [place] 600 mg 2-06 mg by ity of tablet 17:34: mouth in [place] 50 the Medical morning Branch and 600 [...] [place] 48 daily. Medical Prescribed Branch by [facility] - Apr 2019 olanzapine 2021-09 Yes Take by [facility] ers (ZYPREXA 2-06 mouth 2 ity of ORAL) 15:34: (two) [place] 48 times Medical daily. Branch Prescribed by [facility] - Apr 2019 LORazepam 1 2021-09 Yes [...] [place] 48 daily. Medical Prescribed Branch by [facility] - Apr 2019 olanzapine 2021-09 Yes Take by [facility] ers (ZYPREXA 2-06 mouth 2 ity of ORAL) 15:34: (two) [place] 48 times Medical daily. Branch Prescribed by [facility] - Apr 2019 LORazepam [...] [place] 48 daily. Medical Prescribed Branch by [facility] - Apr 2019 olanzapine 2021-09 Yes Take by [facility] ers (ZYPREXA 2-06 mouth 2 ity of ORAL) 15:34: (two) [place] 48 times Medical daily. Branch Prescribed by [facility] no - Apr 2019 [...] [place] 48 daily. Medical [facility] Branch [facility] [facility] olanzapine 2021-09 Yes Take by Univ ers (ZYPREXA 2-06 mouth 2 ity of ORAL) 15:34: (two) [place] 48 times Medical daily. Branch [facility] [facility] gabapentin 2021-09 Yes 600mg Take 600 Un [place] 600 mg 2-06 mg by ity of tablet 15:34: mouth in [place] 48 the Medical morning Branch and 600 mg at noon and 600 mg in the evening. LORazepam 1 2021-09 Yes 1mg Take 1 mg U nivers mg Cp24 2-06 by mouth 2 ity of 15:34: (two) [place] 48 times Medical daily. [place] LORazepam 2021-09 Yes 1mg 1 mg, Univers (ATIVAN) 2-06 Oral, QAM, ity o f tablet 1 mg 15:00: First dose [place] 00 on [facility] 09/02/22 at [place] 0900, Until Discontinu ed, Routine OLANZapine 2021-09 Yes 15mg 15 mg, Unive rs (ZyPREXA) 2-06 Oral, QHS, ity of tablet 15 03:00: First dose [place] mg 00 on [facility] 09/01/22 at [place] 2100, Until Discontinu ed, Routine PARoxetine 2021-09 Yes 20mg 20 mg, Unive rs (PAXIL) 2-06 Oral, QHS, ity of tablet 20 03:00: [place] mg 00 on [facility] 09/01/22 at [place] 2100, Until Discontinu ed, Routine gabapentin 2021-09 Yes 600mg 600 mg, Uni vers (NEURONTIN) 2-06 Oral, TID, it y of tablet 600 02:00: First dose [place] mg 00 on [facility] 09/01/22 at Branch 2000, Until Discontinu ed, Routine acetaminoph 2021-09 No 325mg 325 mg, U nivers en 2-05 12-06 Oral, ity of (TYLENOL) 23:49: 00:20 ONCE, 1 [place] tablet 325 [place] :00 dose, On Medic al mg [facility] 09/01/22 at 1800, Routine clonazePAM [...] :00 ONCE, 1 Medical dose, On Branch [place] 08/31/22 at 1730, Routine clonazePAM 2021-09 No 1mg 1 mg, Unive rs 0.1 mg/mL 11-01 Oral, TID, ity of oral 20:00: 14:29 First dose [place] suspension 00 :11 on [place] Medical 1 mg 08/31/22 at Branch 1400, [...] use a rass of -3, Starting on [place] 08/31/22 at 1014
In itiate infusion at [...] 40 mg 00 First dose Medical on [place] Branch 08/31/22 at 0900, Until Discontinu ed, Routine dexMEDEtomi 2021-09 No .2ug/kg 0.2-1.5 Univers dine 200 11-01-06 /h mcg/kg/hr ity o f mcg in 0.9 14:33: 00:39 ?61 [place] % NaCl 50 19 :35 (3.05-22.8 Medi patrick mL 75 mL/hr, Branch (PRECEDEX) rounded to RTU IV 3.05-22.88 infusion mL/hr), IV Infusion, TITRATE, Sedation-R ASS score (0 to -1), Starting on [place] 08/31/22 at 0833
In itiate infusion at [...] Scale Goals Determined by Provider, Starting on [place] 08/31/22 at 0203
In itiate infusion at [...] 1 Medical 50 mcg dose, On Branch [place] 08/31/22 at 0200, Routine propofoL IV 2021-09- No 5ug/kg/ 5-50 Un juan infusion 11-01 min mcg/kg/min ity of 07:24: 07:09 ?61 kg [place] 17 :53 (1.83-18.3 Medical mL/hr), IV Branch Infusion, TITRATE, Sedation-R ASS score (0 to -1), Starting on [place] 08/31/22 at 0124
In itiate infusion at [...] STD 50mg in 06:26: 16:14 mL/hr), IV [place] NaCl 0.9% 10 :53 Infusion, Medic al [...] Branch prescribed at [facility] no summer 2018 PARoxetine 2021-09 Yes 20mg [...] mouth ity of tablet 00:00: in the [place] 00 morning. Medical Branch LORazepam 1 2021-09 Yes 1mg Take 1 mg U nivers mg tablet 1-21 by mouth ity of 00:00: in the [place] morning. Medical Branch PARoxetine 2021- Yes 20mg Take 20 mg U nivers 20 mg 1-21 by mouth ity of tablet 00:00: in the [place] morning. Medical Branch LORazepam 1 2021- Yes 1mg Take 1 mg U nivers mg tablet 1-21 by mouth ity of 00:00: in the [place] morning. Medical Branch PARoxetine 2021- Yes 20mg Take 20 mg U nivers 20 mg 1-21 by mouth ity of tablet 00:00: in the [place] morning. Medical Branch LORazepam 1 2021-09 Yes 1mg Take 1 mg U nivers mg tablet 1-21 by mouth ity of 00:00: in the [place] morning. Medical Branch PARoxetine 2021- Yes 20mg Take 20 mg U nivers 20 mg 1-21 by mouth ity of tablet 00:00: in the [place] morning. Medical Branch LORazepam 1 2021-09 Yes 1mg Take 1 mg U nivers mg tablet 1-21 by mouth ity of 00:00: in the [place] morning. Medical Branch PARoxetine 2021- Yes 20mg Take 20 mg U nivers 20 mg 1-21 by mouth ity of tablet 00:00: in the [place] 00 morning. Medical Branch LORazepam 1 2021-09 Yes 1mg Take 1 mg U nivers mg tablet 1-21 by mouth ity of 00:00: in the [place] morning. Medical Branch PARoxetine 2021- Yes 20mg Take 20 mg U nivers 20 mg 1-21 by mouth ity of tablet 00:00: in the [place] 00 morning. Medical Branch LORazepam 1 2021- Yes 1mg Take 1 mg U nivers mg tablet 1-21 by mouth ity of 00:00: in the [place] 00 morning. Medical Branch PARoxetine 2021- Yes 20mg Take 20 mg U nivers 20 mg 1-21 by mouth ity of tablet 00:00: in the [place] 00 morning. Medical Branch LORazepam 1 2021- Yes 1mg Take 1 mg U nivers mg tablet 1-21 by mouth ity of 00:00: in the [place] 00 morning. Medical Branch PARoxetine 2021- Yes 20mg Take 20 mg U nivers 20 mg 1-21 by mouth ity of tablet 00:00: in the [place] 00 morning. Medical Branch LORazepam 2021-09 Yes 1mg Take 1 mg U nivers mg tablet 1-21 by mouth ity of 00:00: in the [place] 00 morning. Medical Branch PARoxetine 2021- Yes 20mg Take 20 mg U nivers 20 mg 1-21 by mouth ity of tablet 00:00: in the [place] morning. Medical Branch LORazepam 1 2021-09 Yes 1mg Take 1 mg U nivers mg tablet 1-21 by mouth ity of 00:00: in the [place] morning. Medical Branch PARoxetine 2021- Yes 20mg Take 20 mg U nivers 20 mg 1-21 by mouth ity of tablet 00:00: in the [place] morning. Medical Branch LORazepam 1 2021-09 Yes 1mg Take 1 mg U nivers mg tablet 1-21 by mouth ity of 00:00: in the [place] morning. Medical Branch PARoxetine 2021- Yes 20mg Take 20 mg U nivers 20 mg 1-21 by mouth ity of tablet 00:00: in the [place] morning. Medical Branch LORazepam 1 2021-09 Yes 1mg Take 1 mg U nivers mg tablet 1-21 by mouth ity of 00:00: in the [place] morning. Medical Branch PARoxetine 2021- Yes 20mg Take 20 mg U nivers 20 mg 1-21 by mouth ity of tablet 00:00: in the [place] morning. Medical Branch LORazepam 1 2021-09 Yes 1mg Take 1 mg U nivers mg tablet 1-21 by mouth ity of 00:00: in the [place] morning. Medical Branch PARoxetine 2021- Yes 20mg Take 20 mg U nivers 20 mg 1-21 by mouth ity of tablet 00:00: in the [place] 00 morning. Medical Branch LORazepam 1 2021-09 Yes 1mg Take 1 mg U nivers mg tablet 1-21 by mouth ity of 00:00: in the [place] 00 morning. Medical Branch PARoxetine 2021- Yes 20mg Take 20 mg U nivers 20 mg 1-21 by mouth ity of tablet 00:00: in the [place] 00 morning. Medical Branch LORazepam 1 2021-09 Yes 1mg Take 1 mg U nivers mg tablet 1-21 by mouth ity of 00:00: in the [place] 00 morning. Medical Branch PARoxetine 2021- Yes 20mg Take 20 mg U nivers 20 mg 1-21 by mouth ity of tablet 00:00: in the [place] 00 morning. Medical Branch LORazepam 2021-09 Yes 1mg Take 1 mg U nivers mg tablet 1-21 by mouth ity of 00:00: in the [place] 00 morning. Medical Branch PARoxetine 2021- Yes 20mg Take 20 mg U nivers 20 mg 1-21 by mouth ity of tablet 00:00: in the [place] 00 morning. Medical Branch LORazepam 1 2021-09 Yes 1mg Take 1 mg U nivers mg tablet 1-21 by mouth ity of 00:00: in the [place] 00 morning. Medical Branch PARoxetine 2021- Yes 20mg Take 20 mg U nivers 20 mg 1-21 by mouth ity of tablet 00:00: in the [place] 00 morning. Medical Branch LORazepam 2021-09 Yes 1mg Take 1 mg U nivers mg tablet 1-21 by mouth ity of 00:00: in the [place] 00 morning. Medical Branch SERTraline 2020-0 Yes 100mg Take 100 [place] 100 mg 1-25 mg by ity of tablet 18:52: mouth [place] 12 daily. Medical Prescribed Branch by [facility] - Apr 2019 SERTraline 2020-0 Yes 100mg Take 100 [place] 100 mg 1-25 mg by ity of tablet 18:52: mouth [place] 12 daily. Medical Prescribed Branch by [facility] - Apr 2019 SERTraline 2020-0 Yes 100mg Take 100 [place] 100 mg 1-25 mg by ity of tablet 18:52: mouth [place] 12 daily. Medical Prescribed Branch by [facility] - Apr 2019 olanzapine 2020-0 Yes Take by [facility] ers (ZYPREXA 1-25 mouth 2 ity of ORAL) 18:52: (two) [place] 09 times Medical daily. Branch Prescribed by [facility] - Apr 2019 olanzapine 2020-0 Yes Take by [facility] ers (ZYPREXA 1-25 mouth 2 ity of ORAL) 18:52: (two) [place] 09 times Medical daily. Branch Prescribed by [facility] no - Apr 2019 olanzapine 2020-0 Yes Take by [facility] ers (ZYPREXA 1-25 mouth 2 ity of ORAL) 18:52: (two) [place] 09 times Medical daily. Branch Prescribed by [facility] no - Apr 2019 [...] BY MOUTH TWICE A DAY. busPIRone Yes [id number] 15mg Take 1 [place] 15 mg 6-06 tablet by ity of tablet 00:00: mouth 2 [place] 00 (two) Medical times Branch daily. DULoxetine Yes [id number] 60mg Take 1 U nivers 60 mg 6-04 capsule by ity of capsule 00:00: mouth [place] 00 daily. Medical Branch DULoxetine Yes [id number] 30mg Take 1 U nivers 30 mg 6-04 capsule by ity of capsule 00:00: mouth [place] 00 daily. Medical Branch OXcarbazepi Yes 600mg Take 600 U nivers ne 5-29 mg by ity of (TRILEPTAL) 19:48: mouth 2 [place] 600 mg 44 (two) Medical tablet times Branch daily. traZODONE 2018- Yes [id number] 25mg Take 0.5 Univers 50 mg 5-29 tablets by ity of tablet 00:00: mouth 2 [place] 00 (two) Medical times Branch daily. Multi-Vitam Multi-Vitam Yes M.A. U T in TABS in TABS Physici ans Vital Signs Vital Name Observation Time Observation Value Comments Source Systolic blood 2022-11-28 104 mm[Hg] University pressure 17:50:00 [facility] Diastolic blood 2022-11-28 52 mm[Hg] [place] o pressure 17:50:00 [facility] Heart rate 2022-11-28 106 /min University of 17:50:00 [facility] Body height 2022-11-28 172.7 cm University of 17:50:00 [facility] Body weight 2022-11-28 62.551 kg University of 17:50:00 [facility] BMI 2022-11-28 20.97 kg/m2 University of 17:50:00 [facility] Oxygen saturation 2022-11-28 93 /min University of in Arterial blood 17:50:00 [place] Medi patrick by Pulse oximetry Branch Systolic blood 2022-10-20 108 mm[Hg] University of pressure 14:09:00 [facility] Branch Diastolic blood 2022-10-20 65 mm[Hg] University o f pressure 14:09:00 [facility] Heart rate 2022-10-20 95 /min University of 14:09:00 [facility] Body temperature 2022-10-20 37.06 Jeana University of 14:09:00 [facility] Body height 2022-10-20 172.7 cm University of 14:09:00 [facility] Body weight 2022-10-20 58.968 kg University of 14:09:00 [facility] BMI 2022-10-20 19.77 kg/m2 University of 14:09:00 [facility] Oxygen saturation 2022-10-20 98 /min University of in Arterial blood 14:09:00 [place] Medi patrick by Pulse oximetry Branch Systolic blood 2022-09-05 101 mm[Hg] University of pressure 20:22:00 [facility] Diastolic blood 2022-09-05 64 mm[Hg] University o f pressure 20:22:00 [facility] Heart rate 2022-09-05 62 /min University of 20:22:00 [facility] Body temperature 2022-09-05 36.33 Jeana University of 20:22:00 [facility] Body height 2022-09-05 172.7 cm University of 20:22:00 [facility] Body weight 2022-09-05 56.337 kg University of 20:22:00 [facility] BMI 2022-09-05 18.88 kg/m2 University of 20:22:00 [facility] Oxygen saturation 2022-09-05 97 /min University of in Arterial blood 20:22:00 [place] [facility] by Pulse oximetry Branch Systolic blood 2022-09-03 110 mm[Hg] University of pressure 05:40:00 [facility] Diastolic blood 2022-09-03 81 mm[Hg] University o f pressure 05:40:00 [facility] Heart rate 2022-09-03 64 /min University of 05:40:00 [facility] Body temperature 2022-09-03 37.22 Jeana University of 05:40:00 [facility] Respiratory rate 2022-09-03 18 /min University of 05:40:00 [facility] Body height 2022-09-03 172.7 cm University of 05:40:00 [facility] Body weight 2022-09-03 57.153 kg University of 05:40:00 [facility] BMI 2022-09-03 19.16 kg/m2 University 05:40:00 [facility] Oxygen saturation 2022-09-03 100 /min [facility] in Arterial blood 05:40:00 [facility] by Pulse oximetry Branch Systolic blood 2022-09-02 114 mm[Hg] University of pressure 17:17:00 [facility] Diastolic blood 2022-09-02 75 mm[Hg] University o f pressure 17:17:00 [facility] Heart rate 2022-09-02 81 /min University 17:17:00 [facility] Body temperature 2022-09-02 36.61 Jeana University of 17:17:00 [facility] Respiratory rate 2022-09-02 18 /min University of 17:17:00 [facility] Oxygen saturation 2022-09-02 99 /min [facility] in Arterial blood 17:17:00 [facility] by Pulse oximetry Branch Body weight 2022-09-01 61 kg University of 19:40:00 [facility] BMI 2022-09-01 20.45 kg/m2 University of 19:40:00 [facility] Body height 2022-09-01 172.7 cm University of 19:36:00 [facility] BP Systolic 2019-10-20 118 mm[Hg] Location: RUE; [facility] 12:54:00 Position: Sitting BP Diastolic 2019-10-20 53 mm[Hg] Location: RUE; [facility] 12:54:00 Position: Sitting Height 2019-10-20 169 [...] [facility] 10:53:00 Temperature 2019-02-07 98 [degF] [facility] 10:53:00 Procedures Procedure Date / Time Performing Clinician Source Performed [facility] PATIENT FINANCIAL 2022-11-28 17:49:34 Doctor Unassigned, No [facility] POLICY Name Medical Branch EXTERNAL PROVIDER 2022-11-19 06:01:00 Doctor Unassigned, No [facility] RECORDS Name Medical Branch DEXA AXIAL (HIP AND 2022-09-17 19:58:00 Kenya Fuentes [facility] SPINE) Medical Branch EXTERNAL PROVIDER 2022-09-16 06:01:00 Doctor Unassigned, No [facility] RECORDS Name Medical Branch ASSIGNMENT OF BENEFITS 2022-09-05 19:47:49 Doctor Unassigned, No [facility] Name [facility] Branch COMP. METABOLIC PANEL 2022-09-01 10:44:00 Stephen Marilyn [facility] ([id number]) [facility] CBC WITH DIFF 2022-09-01 10:44:00 Stephen [facility] XR CHEST 1 VW 2022-09-01 10:15:00 Johann [facility] CREATINE KINASE 2022-08-31 09:35:00 Ninfa [facility] Dolly [facility] MAGNESIUM 2022-08-31 09:35:00 Jael [facility] TROPONIN I 2022-08-31 09:35:00 Jael [facility] COMP. METABOLIC PANEL 2022-08-31 09:35:00 Jael Coppola [facility] ([id number]) [facility] SALICYLATE 2022-08-31 09:35:00 Jael Co[facility] ETHANOL 2022-08-31 09:35:00 Jael Co[facility] CBC WITH DIFF 2022-08-31 09:35:00 Jael Co[facility]ola [facility] URINE DRUG (IMMUNOASSAY) 2022-08-31 09:07:00 Jael Coppola [facility] COMPREHENSIVE DRUG Medical [facility] SCREEN URINE DRUG (LCMSMS) - 2022-08-31 09:07:00 Jael Coppola [facility] COMPREHENSIVE DRUG PANEL Medical Branch AC PANEL 20 + LACTIC 2022-08-31 09:01:00 Jael Coppola [facility] XR CHEST 1 VW 2022-08-31 05:44:00 Jael Coppola [place] [facility] XR KUB 2022-08-31 05:44:00 Jael Coppola [place] [facility] AUTHORIZATION FOR 2020-08-21 06:01:00 Doctor Unassigned, No [facility] RELEASE OF PHI Name Medical Branch [QLH] CBC (INCLUDES 2019-10-20 00:00:00 [facility] DIFF/PLT) [QL] CMP W/EGFR 2019-10-20 00:00:00 [facility] [QL] LIPID PANEL 2019-10-20 00:00:00 [facility] [QL] TSH, 3RD 2019-10-20 00:00:00 [facility] GENERATION [QH] DRUG 2019-07-20 00:00:00 [facility] SCREEN,COMPREHENSIVE (URINE) [QH] DRUG 2019-02-24 00:00:00 [facility] SCREEN,COMPREHENSIVE (URINE) Encounters Start End Encounter Admission Attending Care Care Encounter Source Date/Time Date/Time Type Type Clinicians Facility Department ID 2023-04-24 2023-04-24 Outpatient R [facility] [id number] Univers 11:00:00 11:00:00 DONTA rojas [facility] 2022-12-30 2022-12-30 [facility] [id number] Univers 00:00:00 00:00:[address] [facility] 350.1.13.10 Rl 4.2.7.2.686 [facility] [id number] [facility] AND LI 220 Branch [facility] 2022-12-03 2022-12-03 Outpatient R [facility] [id number] Univers 14:00:00 14:00:00 KENYA rojas [facility] 2022-12-02 2022-12-02 Telephone Alfredo [facility] [id number] Univers 00:00:00 00:00:00 Kenya [facility] 350.1.13.10 [place] 4.2.7.2.686 Sathya as NELSON?BLEA [id number] Vt apryl SERNA [address] [place] MEDICAL OFFICE [facility] 2022-11-28 2022-11-28 Outpatient R [facility] [id number] Univers 12:00:00 13:03:08 DONTA rojas [facility] 2022-11-28 2022-11-28 [facility] [id number] Univers 12:00:00 13:03:08 Visit Donta Bundy HEALTH 350.1.13.10 it y of [place] 4.2.7.2.686 Sathya as NELSON?BLEA [id number] [facility] KAREEM [address] [facility] OFFICE [facility] 2022-11-28 2022-11-28 Orders Doctor BEAULIEU 1.2.840.114 [id number] Univers 00:00:00 00:00:00 Only Unassigned, FRANCA 350.1.13.10 ity of [facility] 4.2.7.2.686 Sathya as [id number] [address] 2022-11-19 2022-11-19 Orders Doctor BRITTNEE 1.2.840.114 [id number] Univers 00:00:00 00:00:00 Only Unassigned, FRANCA 350.1.13.10 ity of [facility] 4.2.7.2.686 Sathya as [id number] [address] 2022-10-20 2022-10-20 Outpatient R [facility]EDO [facility] [id number] Univers 08:00:00 08:45:36 KENYA rojas [facility] 2022-10-20 2022-10-20 Office [facility] 1.2.840.114 [id number] Univers 08:00:00 08:45:36 Visit [place] HEALTH 350.1.13.10 it y of [place] 4.2.7.2.686 Sathya as NELSON?BLEA [id number] [facility] 044 [facility] OFFICE [facility] 2022-09-23 2022-09-23 Telephone [facility] [id number] Univers 00:00:00 00:00:00 [place] HEALTH 350.1.13.10 it y of [place] 4.2.7.2.686 Sathya as NELSON?BLEA [id number] [address] MEDICAL OFFICE [facility] 2022-09-17 2022-09-17 [facility] [id number] Univers 13:39:39 23:59:00 KENYA rojas of [facility] 2022-09-17 2022-09-17 Hospital [facility] 1.2.840.114 [id number] Univers 13:39:39 23:59:00 Encounter [place] CHAPPELL 350.1.13.10 ity [facility] 4.2.7.2.[place] [id number] [facility] [address] [place] 2022-09-16 2022-09-16 Orders Doctor BRITTNEE 1.2.840.114 [id number] Univers 00:00:00 00:00:00 Only Unassigned, FRANCA 350.1.13.10 ity of [facility] 4.2.7.2.686 Sathya as [id number] [address] 2022-09-05 2022-09-05 [facility] [id number] Univers 14:00:00 14:51:04 KENYA rojas [facility] 2022-09-05 2022-09-05 Office [facility] 1.2.840.114 [id number] Univers 14:00:00 14:51:04 Visit [place] MEDINA 350.1.13.10 it y of [place] 4.2.7.2.686 Sathya as NELSON?BLEA [id number] [address] MEDICAL OFFICE [facility] 2022-09-05 2022-09-05 Orders Doctor BRITTNEE 1.2.840.114 [id number] Univers 00:00:00 00:00:00 Only Unassigned, FRANCA 350.1.13.10 ity of [facility] 4.2.7.2.686 Sathya as [id number] [facility] [address] [place] 2022-09-03 2022-09-03 Transition MINERVA Steiner 1.2.840.114 [id number] Univers 00:00:00 00:00:00 of Care Marilu MCMULLEN 350.1.13.10 [place]2.[place] [id number] [facility] 403 Branch 2022-09-02 2022-09-02 Emergency X NATALIE [facility] ERT [id number] Univers 23:43:00 23:56:00 [place] ity of [facility] 2022-09-02 2022-09-02 Emergency Natalie [facility] 1.2.840.114 [id number] Univers 23:43:00 23:56:00 Trinidad Svetlana CHAPPELL 350.1.13.10 ity of [place] 4.2.7.2.[place] [id number] [facility] 084 Branch 2022-08-30 2022-09-02 Inpatient X CHAPO [facility] MOOSE [id number] Univers 22:42:00 15:34:00 [place] ity [facility] 2022-08-30 2022-09-02 [facility] Campbell Guerrero 1. 2.840.114 [id number] Univers 22:42:00 15:34:00 Encounter Ayaan Yung 350.1.13.10 ity of [facility] 4.2.7.2.686 [place] [id number] [facility] 093 Branch 2020-08-21 2020-08-21 Orders Doctor BEAULIEU 1.2.840.114 [id number] 00:00:00 00:00:00 Only UnassignedFRANCA 350.1.13.10 [facility] 4.2.7.2.686 [id number] 009 2020-08-21 2020-08-21 Orders Doctor BEAULIEU 1.2.840.114 [id number] Univers 00:00:00 00:00:00 Only UnassignedFRANCA 350.1.13.10 ity of [facility] 4.2.7.2.686 Sathya as [id number] [facility] 009 Branch 2019-12-08 2019-12-08 Office Oxana [facility] 1.2.840.114 [id number] 13:05:19 14:05:19 Visit Kim MARES 350.1.13.10 [place] 4.2.7.2.686 [place] [id number] [facility] 2019-12-08 2019-12-08 Office [facility] 1.2.840.114 [id number] [facility] 13:05:19 14:05:19 Visit Kim N SPECIALTY 350.1.13.10 ity of [place] 4.2.7.2.686 Lisa MCGARRY [id number] [address] 2019-12-08 2019-12-08 Outpatient R [facility] [id number] [facility] 13:15:00 13:15:00 KIM ity o f [facility] 2019-10-20 2019-10-20 Appointmen CHAR ESPINAL Multispecia [id number] [place] 13:00:00 13:00:00 t; JAZMYN ESPINAL M.D. lty - Sarah Rush [facility] 2019-07-20 2019-07-20 Appointmen CHAR ESPINAL Psychiatry [id number] [place] 13:00:00 13:00:00 t; JAZMYN ESPINAL M.D. Outpatient Physici [facility] 2019-06-08 2019-06-08 Telephone [facility] 1.2.840.114 [id number] [facility] 00:00:00 00:00:00 Kim N SPECIALTY 350.1.13.10 ity of [place] 4.2.7.2.686 Lisa MCGARRY [id number] [address] 2019-02-24 2019-02-24 Appointmen CHAR ESPINAL [id number] [place] 10:00:00 10:00:00 t; JAZMYN ESPINAL M.D. [place] [facility] SABA, M.D. [facility] 2019-02-07 2019-02-07 Appointmen CHAR VAZQUEZ Multispecia [id number] [place] 10:20:00 10:20:00 t; milton FLETCHER - CHANCE Chirinos APRN, APRN Results Test Description Test Time Test Comments Results Result Comments Source COMP. METABOLIC PANEL ([id number]) 2022-09-01 11:26:16 Test Item Value Reference Range Interpretation Comme nts NA (test code = 4860708583) 138 mmol/L 135-145 K (test code = 3185647285) 3.5 mmol/L 3.5-5.0 S light hemolysis CL (test code = 0642781701) 110 mmol/L 98-108 H CO2 TOTAL (test code = 26 mmol/L 23-31 7726515538) AGAP (test code = 2-16 0495691283) BUN (test code = 9 mg/dL 7-23 Slight hemo lysis 8603766943) GLUCOSE (test code = 99 mg/dL 70-110 0170354277) CREATININE (test code = 0.73 mg/dL 0.60-1.25 6817152010) TOTAL BILI (test code = 0.9 mg/dL 0.1-1.1 2733710380) CALCIUM (test code = 8.2 mg/dL 8.6-10.6 L 1883275316) T PROTEIN (test code = 5.5 g/dL 6.3-8.2 L 7622193886) ALBUMIN (test code = 3.3 g/dL 3.5-5.0 L 9222883581) ALK PHOS (test code = 75 U/L 34-122 Slight hemolysis 1237212282) ALTv (test code = 1742-6) 16 U/L 5-50 AST(SGOT) (test code = 30 U/L 13-40 Sligh t hemolysis 8625022237) eGFR (test code = mL/min/1.73m2 9777360908) KACI (test code = KACI) Association of [...] tests). Lab Interpretation (test Abnormal code = 95290-5) [facility] WITH [id number] 11:03:17 Test Item Value Reference Range Interpretation Comments WBC (test code = See_Comment [Automated 0890-2) message] The sy stem which generated this result transmitted reference range : 4.20 - 10.70 10*3/?L. The reference range was not used to interpret this result as normal/abnormal . RBC (test code = See_Comment L [Automated 069-8) message] The sy stem which generated this [...] RDW-SD (test code = 41.7 fL 38.5-51.6 23453-1) RDW-CV (test code = 13.2 % 12.1-15.4 788-0) PLT (test code = See_Comment [Automated 777-3) message] The sy stem which generated this result transmitted reference range : 150 - 328 10*3/ ?L. The reference r evita was not used to interpret this result as normal/abnormal . MPV (test code = 11.9 fL 9.8-13.0 23255-9) NRBC/100 WBC (test See_Comment [Automat ed code = 0985390835) message] The system which generated this result transmitted reference range : 0.0 - 10.0 /100 WBCs. The refer ence range was not u sed to interpret th is result as normal/abnormal . NRBC x10^3 (test code See_Comment [Auto mated = 1384882577) message] The s ystem which generated this result transmitted reference range : 10*3/?L. The reference range was not used to interpret this result as normal/abnormal . GRAN MAT (NEUT) % 62.3 % (test code = 770-8) IMM GRAN % (test code 0.20 % = 6786001457) LYMPH % (test code = 25.7 % 736-9) MONO % (test code = 8.0 % 5905-5) EOS % (test code = 3.4 % 713-8) BASO % (test code = 0.4 % 706-2) GRAN MAT x10^3(ANC) 5.01 10*3/uL 1.99-6.95 (test code = 8323250477) IMM GRAN x10^3 (test 0.00-0.06 code = 8157825338) LYMPH x10^3 (test code 2.07 10*3/uL 1.09-3.23 = 731-0) MONO x10^3 (test code 0.64 10*3/uL 0.36-1.02 = 742-7) EOS x10^3 (test code = 0.27 10*3/uL 0.06-0.53 711-2) BASO x10^3 (test code 0.03 10*3/uL 0.01-0.09 = 704-7) Lab Interpretation Abnormal (test code = 32949-3) [facility] [id number] 17:58:42 Test Item Value Reference Range Interpretation Comments CK (test code = 4444208381) 180 U/L 33-194 Lab Interpretation (test code = Normal 65353-8) [facility] [id number] 11:09:00 Test Item Value Reference Interpretation Comments Range TROPONIN I (test 0.001 ng/mL See_Comment [Automated code = 8301586222) message] The system which generated this result [...] biotin. Lab Interpretation Normal (test code = 60094-6) [facility]AL[facility]ATE2022-12-04 10:59:14 SALICYLATE<10mg/L111/01/2021 4:59 AM [facility]ORAT[facility] SERVICESTherapeutic Range: ? Analgesic and Antipyretic Use ? 20-100 mg/L ? ? Anti- Inflammatory Use ? 100-250 mg/L Toxic Range: ? Greater than 300 mg/LUnHendrick [facility] CenterETHANOL2022-12-04 10:59:14ALCOHOL<10mg/dL08/31/2022 4:59 AM [facility]UT[facility] LABORATORY SERVICESToxic Greater than or equal to 80 mg/dL. NOTE: Whole blood values are approximately 10% to 15% lower than serum and plasma.[facility] [id number] 10:59:09 Test Item Value Reference Range Interpretation Comments ACETAMINOP (test code = 10.0-30.0 L 8988846918) KACI (test code = KACI) Toxic: Greater than 200 ug/mL @ 4 hour post ingestion or greater than 50 ug/mL @ 12 hour post ingestion Lab Interpretation (test Abnormal code = 93618-5) [facility] CenterMAGNESIUM2022-12-04 10:58:19 Test Item Value Reference Range Interpretation Comments MAGNESIUM (test code = 4238693954) 1.8 mg/dL 1.7-2.4 Lab Interpretation (test code = Normal 62017-0) [facility]. METABOLIC PANEL (93817)2022-08-31 10:58:18 Test Item Value Reference Range Interpretation Comments NA (test code = 141 mmol/L 135-145 1369218631) K (test code = 4.0 mmol/L 3.5-5.0 4434535588) CL (test code = 110 mmol/L 98-108 H 7127047604) CO2 TOTAL (test code = 25 mmol/L 23-31 0413018216) AGAP (test code = 2-16 4865730246) BUN (test code = 5 mg/dL 7-23 L 4679804036) GLUCOSE (test code = 80 mg/dL 70-110 7960811173) CREATININE (test code = 0.71 mg/dL 0.60-1.25 0435363329) TOTAL BILI (test code = 0.5 mg/dL 0.1-1.4 4246575903) CALCIUM (test code = 7.7 mg/dL 8.6-10.6 L 8669702849) T PROTEIN (test code = 5.2 g/dL 6.3-8.2 L 5713658592) ALBUMIN (test code = 3.3 g/dL 3.5-5.0 L 4311840190) ALK PHOS (test code = 71 U/L 34-122 1006392728) ALTv (test code = 16 U/L 5-50 1742-6) AST(SGOT) (test code = 23 U/L 13-40 3496330349) eGFR (test code = mL/min/1.73m2 8719117745) KACI (test code = KACI) Association of [...] tests). Lab Interpretation Abnormal (test code = 91407-8) [facility] WITH [id number] 09:52:32 Test Item Value Reference Range Interpretation [...] RDW-SD (test code = 41.1 fL 38.5-51.6 51588-9) RDW-CV (test code = 12.9 % 12.1-15.4 788-0) PLT (test code = See_Comment [Automated 777-3) message] The system which generated this result transmit jordon reference range : 150 - 328 10*3/ ?L. The reference range was not u sed to interpret th is result as normal/abnormal . MPV (test code = 11.1 fL 9.8-13.0 42978-2) NRBC/100 WBC (test See_Comment [Automat ed code = 8436278330) message] The system which generated this result transmit jordon reference range : 0.0 - 10.0 /100 WBCs. The reference range was not used to interpret this result as normal/abnormal . NRBC x10^3 (test code See_Comment [Auto mated = 2573598812) message] The system which generated this result transmit jordon reference range : 10*3/?L. The reference range was not used to interpret this result as normal/abnormal . GRAN MAT (NEUT) % 90.1 % (test code = 770-8) IMM GRAN % (test code 0.40 % = 4481017307) LYMPH % (test code = 5.4 % 736-9) MONO % (test code = 3.8 % 5905-5) EOS % (test code = 0.1 % 713-8) BASO % (test code = 0.2 % 706-2) GRAN MAT x10^3(ANC) 14.75 10*3/uL 1.99-6.95 H (test code = 6698415680) IMM GRAN x10^3 (test 0.06 10*3/uL 0.00-0.06 code = 1307993558) LYMPH x10^3 (test code 0.88 10*3/uL 1.09-3.23 L = 731-0) MONO x10^3 (test code 0.62 10*3/uL 0.36-1.02 = 742-7) EOS x10^3 (test code = 0.06-0.53 L 711-2) BASO x10^3 (test code 0.03 10*3/uL 0.01-0.09 = 704-7) Lab Interpretation Abnormal (test code = 04150-6) [facility] 20 + Lactic [id number] 09:16:12 Test Item Value Reference Range Interpretation Comments PH (test code = 2) 7.35-7.45 PCO2 (test code = See_Comment [Automate d 5170513436) message] The sy stem which generated this result transmitted reference range : 35 - 45 mmHg. The reference range was not used to interpret this result as normal/abnormal . PO2 (test code = See_Comment H [Automated 0910149037) message] The sy stem which generated this result transmitted reference range : 80 - 100 mmHg. The reference range was not used to interpret this result as normal/abnormal . HCO3 (test code = See_Comment L [Automate d 3134891809) message] The sy stem which generated this result transmitted reference range : 22 - 26 mEq/L. The reference range was not used to interpret this result as normal/abnormal . BE (test code = See_Comment L [Automated 2977029141) message] The sy stem which generated this result transmitted reference range : -3.0 - 3.0 mEq/ L. The reference r evita was not used to interpret this result as normal/abnormal . THB (test code = 13.2 g/dL 13.5-18.0 L 9589193050) %O2HB (test code = 98.8 % 94.0-99.0 2198567679) %COHB ART (test code = 0.3 % 0.0-1.5 7681827745) %METHB ART (test code = 0.2 % 0.4-1.5 L 1214495991) VOL%O2 ART (test code = 18.8 % 15.0-23.0 3272915080) NA (test code = 139 mmol/L 135-145 0133934816) K+ (test code = 3.9 mmol/L 3.5-5.0 1267700650) AC CA IONZ (test code = 4.60 mg/dL 4.50-5.30 2129587856) GLUCOSE (test code = 88 mg/dL 70-110 6055489732) LACTIC ACID (test code 1.04 mmol/L 0.50-2.20 = 0110667327) Lab Interpretation Abnormal (test code = 13287-8) [facility][H] Drug Screen Urine (9 Drugs)2019-07-20 [...] Propoxyphene Negative Negative Screen (test code = 78038-2) Urine Drug Screen Note See Note Drugs [...] ng/mLMethadone 300 ng/mLUrine alco hol 20 mg/dL [facility][H] Drug Screen Urine (9 Drugs)2019-02-24 13:44:01 [...] Propoxyphene Negative Negative Screen (test code = 45710-4) Urine Drug Screen Note See Note Drugs [...]
--- NOTE | 2023-08-23 01:52 | ER ---
Nurse's Notes [facility] Name: Chan Gale Age: 22 yrs Sex: Male : 2000 Arrival Date: 08/23/2023 Time: 01:31 Bed 7 Private MD: Diagnosis: Accidental opiate overdose Presentation: 08/23 01:35 Chief complaint: EMS states: called out to pt's home due to pt being found unresponsive km8 and give OTC narcan nasally by family; when EMS arrived, pt was A\\T\\Ox4; pt states he "accidentally took an unknown white pill that was mixed in with his other white pills; denies SI or HI. Coronavirus screen: Client denies travel out of the [place] in the last 14 days. Ebola Screen: No symptoms or risks identified at this time. Initial Sepsis Screen: Does the patient meet any 2 criteria? No. Patient's initial sepsis screen is negative. Does the patient have a suspected source of infection? No. Patient's initial sepsis screen is negative. Risk Assessment: Do you want to hurt yourself or someone else? Patient reports no desire to harm self or others. Onset of symptoms is unknown. Care prior to arrival: Medication(s) given: Narcan 4mg Nasally. 01:35 Method Of Arrival: EMS: [facility] km8 01:35 Acuity: SRIISHA 3 km8 Triage Assessment: 01:38 General: Appears in no apparent distress. comfortable, Behavior is cooperative, km8 appropriate for age. Pain: Complains of pain in back Pain currently is 10 out of 10 on a pain scale. EENT: No signs and/or symptoms were reported regarding the EENT system. Neuro: Veras Agitation-Sedation Scale (RASS): 0 - Alert and Calm Level of Consciousness is awake, alert, obeys commands, Oriented to person, place, time, situation. Cardiovascular: Denies chest pain, shortness of breath, Capillary refill < 3 seconds Patient's skin is warm and dry. Respiratory: Airway is patent Respiratory effort is even, unlabored, Respiratory pattern is regular, symmetrical. GI: No signs and/or symptoms were reported involving the gastrointestinal system. : No signs and/or symptoms were reported regarding the genitourinary system. Derm: No signs and/or symptoms reported regarding the dermatologic system. Skin is intact, Skin is dry, Skin is pink, warm \\T\\ dry. normal, Skin temperature is warm. Musculoskeletal: Circulation, motion, and sensation intact. Range of motion: intact in all extremities. Historical: - Allergies: :35 No Known Allergies; km8 - Home Meds: :38 Suboxone 8-2 mg sublingual film [Active]; gabapentin oral [Active]; Ativan 2 mg Oral km8 tablet [Active]; Zyprexa Oral [Active]; - PMHx: :38 adhd; Anxiety; avoident restrictive food intact disorder; Bipolar disorder; Depression; km8 drug abuse; - PSHx: :38 None; km8 - Immunization history:: Client reports having NOT received the Covid vaccine. Flu vaccine is not up to date. - Social history:: Smoking status: unknown. - Family history:: not pertinent. Screenin:41 [facility] ED Fall Risk Assessment (Adult) History of falling in the last 3 months, km8 including since admission Yes- single mechanical fall (1 pt) Confusion or Disorientation No (0 pts) Intoxicated or Sedated No (0 pts) Impaired Gait No (0 pts) Mobility Assist Device Used No (0 pt) Altered Elimination No (0 pt) Score/Fall Risk Level 0 - 2 = Low Risk Oriented to surroundings, Maintained a safe environment, Educated pt \\T\\ family on fall prevention, incl call for assistance when getting out of bed, Assessed \\T\\ reinforced patient's understanding of fall precautions. Abuse screen: Denies threats or abuse. Denies injuries from another. Nutritional screening: No deficits noted. Tuberculosis screening: No symptoms or risk factors identified. Assessment: :41 General: see triage notes/assessment. km Vital Signs: 01:35 BP 122 / 94; Pulse 90; Resp 16; Pulse Ox 100% on R/A; Weight 52.16 kg; Height 5 ft. 9 km8 in. ; Pain 10/10; :35 Body Mass Index 16.98 (52.16 kg, 175.26 cm) km8 :35 Pain Scale: Adult km8 Shabnam Coma Score: :41 Eye Response: spontaneous(4). Motor Response: obeys commands(6). Verbal Response: km8 oriented(5). Total: 15. ED Course: :34 Patient arrived in ED. rv1 :34 Austin Banks MD is Attending Physician. sp4 01:38 Triage completed. km8 01:38 Arm band placed on pt left before wrist band was placed. km8 01:41 Bed in low position. Call light in reach. Side rails up X 1. Client placed on km8 continuous cardiac and pulse oximetry monitoring. NIBP monitoring applied. 01:41 Patient maintains SpO2 saturation greater than 95% on room air. km8 01:42 No provider procedures requiring assistance completed. km8 01:42 Patient did not have IV access during this emergency room visit. km8 Administered Medications: No medications were administered Medication: :41 VIS not applicable for this client. km8 Outcome: 01:44 Discharged to home ambulatory, km8 01:44 Condition: good 01:44 Discharge instructions given to patient, Instructed on discharge instructions, Demonstrated understanding of instructions, 01:51 Discharge ordered by . sp4 01:52 Patient left the ED. km8 Signatures: Brittaney Bolaños rv1 Austin Banks MD MD sp4 Kristin Penn RN RN km8
--- NOTE | 2023-08-23 01:52 | EDPHYS ---
Physician Documentation [facility] Name: Chan Gale Age: 22 yrs Sex: Male : 2000 Arrival Date: 08/23/2023 Time: :31 Bed 7 Private MD: ED Physician Austin Banks HPI: 08/23 01:34 This 22 yrs old Male presents to ER via Unassigned with complaints of sp4 Overdose , unresponsiveness . 01:34 Patient is a 22-year-old male, known to me from prior visits presents after he was sp4 found unresponsive on the kitchen floor by his mother who administered 4 mg intranasal Narcan. Patient reportedly overdosed on Percocet tablets. After administration of intranasal Narcan patient woke up and EMS found him in awake condition. Patient brought here for further evaluation by EMS. On initial examination patient states that he is feeling fine and wishes to depart from the emergency room. . Patient states he has no complaint on presentation. . Historical: - Allergies: 01:35 No Known Allergies; km8 - Home Meds: 01:38 Suboxone 8-2 mg sublingual film [Active]; gabapentin oral [Active]; Ativan 2 mg Oral km8 tablet [Active]; Zyprexa Oral [Active]; - PMHx: 01:38 adhd; Anxiety; avoident restrictive food intact disorder; Bipolar disorder; Depression; km8 drug abuse; - PSHx: 01:38 None; km8 - Immunization history:: Client reports having NOT received the Covid vaccine. Flu vaccine is not up to date. - Social history:: Smoking status: unknown. - Family history:: not pertinent. ROS: 01:34 Constitutional: Negative for fever, chills, and weight loss, positive for possible sp4 overdose 01:34 All other systems are negative, Exam: 01:34 Constitutional: This is a well developed, well nourished patient who is awake, alert, sp4 and in no acute distress. Thin appearing male. Head/Face: Normocephalic, atraumatic. Eyes: Pupils equal round and reactive to light, extra-ocular motions intact. Lids and lashes normal. Conjunctiva and sclera are not injected. Cornea within normal limits. Periorbital areas with no swelling, redness, or edema. ENT: Nares patent. No nasal discharge, no septal abnormalities noted. Tympanic membranes are normal and external auditory canals are clear. Oropharynx with no redness, swelling, or masses, exudates, or evidence of obstruction, uvula midline. Mucous membranes moist. Neck: Trachea midline, no thyromegaly or masses palpated, and no cervical lymphadenopathy. Supple, full range of motion without nuchal rigidity, or vertebral point tenderness. Chest/axilla: Normal chest wall appearance and motion. Nontender with no deformity. No lesions are appreciated. Cardiovascular: Regular rate and rhythm with a normal S1 and S2. No gallops, murmurs, or rubs. Normal PMI, no JVD. No pulse deficits. Respiratory: Lungs have equal breath sounds bilaterally, clear to auscultation and percussion. No rales, rhonchi or wheezes noted. No increased work of breathing, no retractions or nasal flaring. Abdomen/GI: Soft, non-tender, with normal bowel sounds. No distension or tympany. No guarding or rebound. No evidence of tenderness throughout. Back: No spinal tenderness. No costovertebral tenderness. Skin: Warm, dry with normal turgor. Normal color with no rashes, no lesions, and no evidence of cellulitis. MS/ Extremity: Pulses equal, no cyanosis. Neurovascular intact. Full, normal range of motion. Neuro: Awake and alert, GCS 15, oriented to person, place, time, and situation. Cranial nerves II-XII grossly intact. Motor strength 5/5 in all extremities. Sensory grossly intact. Psych: Awake, alert, with orientation to person, place and time. Behavior, mood, and affect are within normal limits, appears restless otherwise normal exam Vital Signs: 01:35 BP 122 / 94; Pulse 90; Resp 16; Pulse Ox 100% on R/A; Weight 52.16 kg; Height 5 ft. 9 km8 in. ; Pain 10/10; 01:35 Body Mass Index 16.98 (52.16 kg, 175.26 cm) km8 01:35 Pain Scale: Adult km8 Shabnam Coma Score: 01:41 Eye Response: spontaneous(4). Motor Response: obeys commands(6). Verbal Response: km8 oriented(5). Total: 15. MDM: 01:34 Differential Diagnosis altered mental status, sepsis, flu. Data reviewed: vital signs, sp4 nurses notes, EMS record, old medical records. ED course: Patient is known to me from prior visit to the emergency room also for overdose. Patient at this time states that this was an accident and he mixed in some fentanyl with other pills that he takes at home. Patient states he is feeling well, has no complaints, and wishes to depart from the emergency room. Patient states he is not danger to himself or anybody else. Patient understands that he is at risk for another episode of unresponsiveness when Narcan wears out, at this time patient still wishes to depart from the emergency room he will be provided with an informed discharge. Patient also advised that we cannot hold him here against his will based on the law. . 01:51 Patient medically screened. sp4 01:52 ED course: Patient was again reminded that he can pass out and go into respiratory sp4 failure and in case Narcan effect wears out at home. Patient states he is fully aware of that and still wishes to depart home. Patient again states he is not homicidal or suicidal. He has no intention of harming himself or others. Patient also states he is planning to attend rehab. At this time we have no grounds to hold patient against his will in the emergency room. He will be given informed discharge. . Administered Medications: No medications were administered Disposition Summary: 08/23/23 01:51 Discharge Ordered Notes: We advise you to go to [facility] Location: Home sp4 Problem: new sp4 Symptoms: have improved sp4 Condition: Stable sp4 Diagnosis - Accidental opiate overdose sp4 Followup: sp4 - With: Private Physician - When: 1 - 2 days - Reason: Recheck today's complaints Discharge Instructions: - Discharge Summary Sheet sp4 - Opioid Overdose sp4 Forms: - Patient Portal Instructions sp4 Signatures: Austin Banks MD MD sp4 Kristin Penn RN RN km8
[2023-08-23 02:01] VITALS: BP 122/94; O2SAT 100
== END 2023-08-23 01:52 | disposition home or self-care (01) ==
LOC: ER 01:31
DX: T40.601A Poisoning by unspecified narcotics, accidental (unintentional), initial encounter (principal)
CPT/HCPCS: 99284

== ENCOUNTER 2023-08-25 10:18 | Emergency (ER) | payer SELFPAY ==
--- OUTSIDE RECORDS SUMMARY | 2023-08-25 10:22 | XMS REPORT | Continuity of Care Document ---
:[address] [facility] t Address [address] [place] [address] [address] [place] [address] Care Team Providers Name Role Phone KENYA FUENTES Primary Care Physician Unavailable KENYA FUENTES Attending Clinician Unavailable DONTA HAYNES Attending Clinician Unavailable Donta Haynes MD Attending Clinician CRISTINA AZUL Attending Clinician Unavailable Kenya Aiken Attending Clinician Doctor Unassigned, [place] Attending Clinician Unavailable Marilu Steiner LVN Attending Clinician TRINIDAD ESTRADA Attending Clinician Unavailable Trinidad Estrada DO Attending Clinician MICHAEL ASHRAF Attending Clinician Unavailable Campbell Guerrero MD Attending Clinician [phone] Ayaan Yung DO Attending Clinician Michael Ashraf DO Attending Clinician Kim Patel PHD Attending Clinician KIM PATEL Attending Clinician Unavailable JAZMYN ESPINAL M.D. Attending Clinician Unavailable CHANCE VAZQUEZ APRN Attending Clinician Unavailable KENYA FUENTES Admitting Clinician Unavailable CAMPBELL GUERRERO Admitting Clinician Unavailable Ayaan Yung DO Admitting Clinician Payers Payer Name Policy Type Policy Number Effective Date Expiration Date S ource [facility] [id number] 2018 CHOICE [place] 00:00:00 Problems Condition Condition Condition Status Onset Resolution Last Treating Co mments Source Name Details Category Date Date Treatment Clinician Date Need for Need for Disease Active Unive rs hepatitis hepatitis 1-23 ity of C C 00:00: [place] screening screening 00 [facility] test test Branch Low bone Low bone [...] legs legs 00:00: [place] syndrome) syndrome) 00 [facility] Branch BMI less BMI less Disease Active 2021-09 Unive rs than than 2-09 ity of 19,adult 19,adult 00:00: [place] 00 [...] Active Univers ALLERGIE Class ity of [facility] Social History Social Habit Start Date Stop Date Quantity Comments Source Exposure to 2022-11-18 2022-11-28 Not sure [facility] SARS-CoV-2 (event) 00:00:00 11:48:00 [facility] Alcohol intake 2022-10-20 2022-10-20 Current University of 00:00:00 00:00:00 non-drinker of [facility] alcohol Branch (finding) Tobacco Comment 2022-09-05 2022-09-05 Vapes Universit y of 00:00:00 00:00:00 [facility] Tobacco use and 2022-09-05 2022-09-05 Smokeless Universit y of exposure 00:00:00 00:00:00 tobacco non-user [facility] dical [place] Cigarettes smoked 2022-09-05 2022-09-05 Univers ity of current (pack per 00:00:00 00:00:00 [facility] ) - Reported Branch History of tobacco 2018-07-08 Cigarette Smoker University of use 00:00:00 [facility] Sex Assigned At 2002 2002 Universit y of 00:00:00 00:00:00 [facility] Smoking Status Start Date Stop Date Source Never smoked tobacco [facility] (finding) Smokes tobacco daily 2022-09-05 00:00:00 Univers ity [facility] Ex-smoker 2022-09-01 00:00:00 2022-09-01 00:00:00 Universi ty [facility] Medications Ordered Filled Start Stop Current Ordering Indication Dosage Frequency Signature Comments Components Source Medication Medication Date Date Medication? Clinician (SIG) Name Name ondansetron 2022- No [id number] 4mg Take 1 Univers (ZOFRAN) 4 12-02-18 tablet by ity of mg tablet 00:00: 04:59 mouth [place] 00 :00 every 8 Medical (eight) Branch hours as needed for Nausea and Vomiting (N/V) for up to 10 days. ondansetron 2022- No [id number] 4mg Take 1 Univers (ZOFRAN) 4 12-0218 tablet by ity of mg tablet 00:00: 04:59 mouth [place] 00 :00 every 8 Medical (eight) Branch hours as needed for Nausea and Vomiting (N/V) for up to 10 days. OXcarbazepi 2021-09- No 600mg Take 600 Univers ne 600 mg 11-06- mg by ity of tablet 14:31: 00:00 mouth 2 [place] 18 :00 (two) Medical times Branch daily. OXcarbazepi 2021-09- No 600mg Take 600 Univers ne 600 mg 11-06- mg by ity of tablet 14:31: 00:00 mouth 2 [place] 18 :00 (two) Medical times Branch daily. LORazepam 2021-09- No 1mg Take 1 mg Univers mg Cp24 11-06 by mouth 2 ity o f 14:27: 00:00 (two) [place] 07 :00 times Medical daily. Branch LORazepam 2021-09- No 1mg Take 1 mg Univers mg Cp24 11-06 by mouth 2 ity o f 14:27: 00:00 (two) [place] 07 :00 times Medical daily. Branch olanzapine 2022-1 Yes Take by [employer] ers (ZYPREXA 2-09 mouth 2 ity of ORAL) 14:26: (two) [place] [address] times Medical daily. Branch Prescribed by [facility] - Apr 2019 gabapentin 2-1 Yes 600mg Take 600 Un juan 600 mg 2-09 mg by ity of tablet 14:26: mouth in [place] [address] the Medical morning Branch and 600 mg at noon and 600 mg in the evening. olanzapine 2021-1 Yes Take by [facility] ers (ZYPREXA 2-09 mouth 2 ity of ORAL) 14:26: (two) [place] [address] times Medical daily. Branch Prescribed by [facility] Apr 2019 gabapentin 2021-1 Yes 600mg Take 600 [place] 600 mg 2-09 mg by ity of tablet 14:26: mouth in [place] [address] the Medical morning Branch and 600 mg at noon and 600 mg in the evening. olanzapine 2021- Yes Take by [facility] ers (ZYPREXA 2-09 mouth 2 ity of ORAL) 14:26: (two) [place] [address] times Medical daily. Branch Prescribed by [facility] Apr 2019 gabapentin 2021-1 Yes 600mg Take 600 [place] 600 mg 2-09 mg by ity of tablet 14:26: mouth in [place] [address] the Medical morning Branch and 600 mg at noon and 600 mg in the evening. olanzapine 2021-1 Yes Take by [employer] ers (ZYPREXA 2-09 mouth 2 ity of ORAL) 14:26: (two) [place] [address] times Medical daily. Branch Prescribed by [facility] - Apr 2019 gabapentin 2-1 Yes 600mg Take 600 [place] 600 mg 2-09 mg by ity of tablet 14:26: mouth in [place] [address] the Medical morning Branch and 600 mg at noon and 600 mg in the evening. olanzapine 2021-1 Yes Take by [employer] ers (ZYPREXA 2-09 mouth 2 ity of ORAL) 14:26: (two) [place] [address] times Medical daily. Branch Prescribed by [facility] Apr 2019 gabapentin 2022-1 Yes 600mg Take 600 [place] 600 mg 2-09 mg by ity of tablet 14:26: mouth in [place] [address] the Medical morning Branch and 600 mg at noon and 600 mg in the evening. olanzapine 2021- Yes Take by [employer] ers (ZYPREXA 2-09 mouth 2 ity of ORAL) 14:26: (two) [place] [address] times Medical daily. Branch Prescribed by [facility] - Apr 2019 gabapentin 2021-1 Yes 600mg Take 600 [place] 600 mg 2-09 mg by ity of tablet 14:26: mouth in [place] [address] the Medical morning Branch and 600 mg at noon and 600 mg in the evening. olanzapine 2021- Yes Take by [employer] ers (ZYPREXA 2-09 mouth 2 ity of ORAL) 14:26: (two) [place] [address] times Medical daily. Branch Prescribed by [facility] - Apr 2019 gabapentin 2021-1 Yes 600mg Take 600 [place] 600 mg 2-09 mg by ity of tablet 14:26: mouth in [place] [address] the Medical morning Branch and 600 mg at noon and 600 mg in the evening. olanzapine 2021-1 Yes Take by [employer] ers (ZYPREXA 2-09 mouth 2 ity of ORAL) 14:26: (two) [place] [address] times Medical daily. Branch Prescribed by [facility] - Apr 2019 gabapentin 2021-1 Yes 600mg Take 600 [place] 600 mg 2-09 mg by ity of tablet 14:26: mouth in [place] [address] the Medical morning Branch and 600 mg at noon and 600 mg in the evening. olanzapine 2021- Yes Take by [employer] ers (ZYPREXA 2-09 mouth 2 ity of ORAL) 14:26: (two) [place] [address] times Medical daily. Branch Prescribed by [facility] - Apr 2019 gabapentin 2021-1 Yes 600mg Take 600 [place] 600 mg 2-09 mg by ity of tablet 14:26: mouth in [place] [address] the Medical morning Branch and 600 mg at noon and 600 mg in the evening. olanzapine 2021-1 Yes Take by [employer] ers (ZYPREXA 2-09 mouth 2 ity of ORAL) 14:26: (two) [place] [address] times Medical daily. Branch Prescribed by [facility] - Apr 2019 gabapentin 2-1 Yes 600mg Take 600 [place] 600 mg 2-09 mg by ity of tablet 14:26: mouth in [place] [address] the Medical morning Branch and 600 mg at noon and 600 mg in the evening. olanzapine 2021-1 Yes Take by [employer] ers (ZYPREXA 2-09 mouth 2 ity of ORAL) 14:26: (two) [place] [address] times Medical daily. Branch Prescribed by [facility] - Apr 2019 gabapentin 2-1 Yes 600mg Take 600 [place] 600 mg 2-09 mg by ity of tablet 14:26: mouth in [place] [address] the Medical morning Branch and 600 mg at noon and 600 mg in the evening. olanzapine 2021- Yes Take by [employer] ers (ZYPREXA 2-09 mouth 2 ity of ORAL) 14:26: (two) [place] [address] times Medical daily. Branch Prescribed by [facility] Apr 2019 gabapentin 2021-1 Yes 600mg Take 600 [place] 600 mg 2-09 mg by ity of tablet 14:26: mouth in [place] [address] the Medical morning Branch and 600 mg at noon and 600 mg in the evening. olanzapine 2021- Yes Take by [employer] ers (ZYPREXA 2-09 mouth 2 ity of ORAL) 14:26: (two) [place] [address] times Medical daily. Branch Prescribed by [facility] - Apr 2019 gabapentin 2021-1 Yes 600mg Take 600 [place] 600 mg 2-09 mg by ity of tablet 14:26: mouth in [place] [address] the Medical morning Branch and 600 mg at noon and 600 mg in the evening. olanzapine 2021-1 Yes Take by [employer] ers (ZYPREXA 2-09 mouth 2 ity of ORAL) 14:26: (two) [place] [address] times Medical daily. Branch Prescribed by [facility] Apr 2019 gabapentin 2-1 Yes 600mg Take 600 [place] 600 mg 2-09 mg by ity of tablet 14:26: mouth in [place] [address] the Medical morning Branch and 600 mg at noon and 600 mg in the evening. olanzapine 2-1 Yes Take by [employer] ers (ZYPREXA 2-09 mouth 2 ity of ORAL) 14:26: (two) [place] [address] times Medical daily. Branch Prescribed by [facility] - Apr 2019 gabapentin 2021-1 Yes 600mg Take 600 [place] 600 mg 2-09 mg by ity of tablet 14:26: mouth in [place] [address] the Medical morning Branch and 600 mg at noon and 600 mg in the evening. olanzapine 2021- Yes Take by [facility] ers (ZYPREXA 2-09 mouth 2 ity of ORAL) 14:26: (two) [place] [address] times Medical daily. Branch Prescribed by [facility] - Apr 2019 gabapentin 2021- Yes 600mg Take 600 [place] 600 mg 2-09 mg by ity of tablet 14:26: mouth in [place] [address] the Medical morning Branch and 600 mg at noon and 600 mg in the evening. olanzapine 2021- Yes Take by [facility] ers (ZYPREXA 2-09 mouth 2 ity of ORAL) 14:26: (two) [place] [address] times Medical daily. Branch Prescribed by [facility] - Apr 2019 gabapentin 2021-1 Yes 600mg Take 600 [place] 600 mg 2-09 mg by ity of tablet 14:26: mouth in [place] [address] the Medical morning Branch and 600 mg at noon and 600 mg in the evening. olanzapine 2021- Yes Take by [facility] ers (ZYPREXA 2-09 mouth 2 ity of ORAL) 14:26: (two) [place] [address] times Medical daily. Branch Prescribed by [facility] Apr 2019 gabapentin 2021-1 Yes 600mg Take 600 [place] 600 mg 2-09 mg by ity of tablet 14:26: mouth in [place] [address] the Medical morning Branch and 600 mg at noon and 600 mg in the evening. SERTraline 2021-2021- No 100mg Take 100 U nivers 100 mg - 12-09 mg by ity of tablet 14:19: 00:00 mouth [place] 22 :00 daily. Medical Prescribed Branch by [facility] Apr 2019 SERTraline 2021-2021- No 100mg Take 100 U nivers 100 mg 2- 12-09 mg by ity of tablet 14:19: 00:00 mouth [place] 22 :00 daily. Medical Prescribed Branch by [facility] - Apr 2019 nicotine 2021- Yes [...] by ity of tablet 17:34: mouth in [place] [address] the Medical morning Branch and 600 mg at noon and 600 mg in the evening. gabapentin 2021-09 Yes 600mg Take 600 [place] 600 mg 2-06 mg by ity of tablet 17:34: mouth in [place] 50 the Medical morning Branch and 600 mg at noon and 600 mg in the evening. gabapentin 2021-09 Yes 600mg Take 600 [place] 600 mg 2-06 mg by ity of tablet 17:34: mouth in [place] 50 the Medical morning Branch and 600 [...] Medical Prescribed Branch by [facility] - Apr 2019 olanzapine 2021-09 Yes Take by [facility] ers (ZYPREXA 2-06 mouth 2 ity of ORAL) 15:34: (two) [place] 48 times Medical daily. Branch Prescribed by [facility] - Apr 2019 LORazepam 1 2021-09 [...] [place] 48 daily. Medical Prescribed Branch by [facility] no - Apr 2019 olanzapine 2021-09 Yes Take by [facility] ers (ZYPREXA 2-06 mouth 2 ity of ORAL) 15:34: (two) [place] 48 times Medical daily. Branch Prescribed by [facility] - Apr 2019 LORazepam 1 2021-09 [...] [place] 48 daily. Medical Prescribed Branch by [facility] - Apr 2019 olanzapine 2021- Yes Take by [facility] ers (ZYPREXA 2-06 mouth 2 ity of ORAL) 15:34: (two) [place] 48 times Medical daily. Branch Prescribed by [facility] - Apr 2019 LORazepam 1 2021-09 [...] [place] 48 daily. Medical [facility] [facility] olanzapine 2021-09 Yes Take by Univ ers (ZYPREXA 2-06 mouth 2 ity of ORAL) 15:34: (two) [place] 48 times Medical daily. Branch [facility] [facility] - [facility] 2019 gabapentin 2021-09 Yes 600mg Take 600 [place] 600 mg 2-06 mg by ity of tablet 15:34: mouth in [place] 48 the Medical morning Branch and 600 [...] mg 15:00: First dose [place] 00 on [facility] 09/02/22 at Branch 0900, Until Discontinu ed, Routine OLANZapine 2021-09 Yes 15mg 15 mg, Unive rs (ZyPREXA) 2-06 Oral, QHS, ity of tablet 15 03:00: First dose [place] mg [address] [facility] 09/01/22 at Branch 2100, Until Discontinu ed, Routine PARoxetine 2021-09 Yes 20mg 20 mg, Unive rs (PAXIL) 2-06 Oral, QHS, ity of tablet 20 03:00: First dose [place] mg [address] [facility] 09/01/22 at Branch 2100, Until Discontinu ed, Routine gabapentin 2021-09 Yes 600mg 600 mg, Uni vers (NEURONTIN) 2-06 Oral, TID, it y of tablet 600 02:00: First dose [place] mg [address] [facility] 09/01/22 at Branch 2000, Until Discontinu ed, Routine acetaminoph 2021-09 325mg 325 mg, U nivers en 2-05 12-06 Oral, ity of (TYLENOL) 23:49: 00:20 ONCE, 1 [place] tablet 325 00 :00 dose, On Medic al mg [facility] 09/01/22 at 1800, Routine clonazePAM 2021-09 [...] :00 ONCE, 1 Medical dose, On Branch [place] 08/31/22 at 1730, Routine clonazePAM 2021-09 No 1mg 1 mg, Unive rs 0.1 mg/mL 11-01 Oral, TID, ity of oral 20:00: 14:29 First dose [place] suspension 00 :11 on [place] Medical 1 mg 08/31/22 at Branch 1400, [...] use a rass of -3, Starting on [place] 08/31/22 at 1014
In itiate infusion at [...] 40 mg 00 First dose Medical on [place] Branch 08/31/22 at 0900, Until Discontinu ed, Routine dexMEDEtomi 2021-09 No .2ug/kg 0.2-1.5 Univers dine 200 11-01 12-06 /h mcg/kg/hr ity o f mcg in 0.9 14:33: 00:39 ?61 [place] % NaCl 50 19 :35 (3.05-22.8 Medi patrick mL 75 mL/hr, Branch (PRECEDEX) rounded to RTU IV 3.05-22.88 infusion mL/hr), IV Infusion, TITRATE, Sedation-R ASS score (0 to -1), Starting on [place] 08/31/22 at 0833
In itiate infusion at [...] Scale Goals Determined by Provider, Starting on [place] 08/31/22 at 0203
In itiate infusion at 25 mcg/hr. Titrate by 25 mcg/hr every 1 minute to 15 minutes to identified goal pain and/or sedation scores. Maximum dose = 200 mcg/hr. If goal not maintained at maximum allowed dose, contact prescriber .
FENTanyl 2021-09- No 50ug 50 mcg, Un juan (SUBLIMAZE 11-01 Slow IV ity o f (PF)) 08:00: 07:14 Push, [place] injection 00 :00 ONCE, 1 Medical 50 mcg dose, On Branch [place] 08/31/22 at 0200, Routine propofoL IV 2021-09- No 5ug/kg/ 5-50 [place] infusion 11-01- min mcg/kg/min ity of 07:24: 07:09 ?61 kg [place] 17 :53 (1.83-18.3 Medical mL/hr), IV Branch Infusion, TITRATE, Sedation-R ASS score (0 to -1), Starting on [place] 08/31/22 at 0124
In itiate infusion at [...] Take by Uni vers 300 mg/6 mL 10-31 mouth 2 ity of (6 mL) 23:09: 00:00 (two) [place] solution 11 :00 times Medical daily. Branch prescribed at [facility] [facility] summer 2018 PARoxetine 2021-09 Yes 20mg [...] mouth ity of tablet 00:00: in the [place] 00 morning. Medical Branch LORazepam 1 2021-09 Yes 1mg Take 1 mg U nivers mg tablet 1-21 by mouth ity of 00:00: in the [place] 00 morning. Medical Branch PARoxetine 2021- Yes 20mg Take 20 mg U nivers 20 mg 1-21 by mouth ity of tablet 00:00: in the [place] 00 morning. Medical Branch LORazepam 1 2021- Yes 1mg Take 1 mg U nivers mg tablet 1-21 by mouth ity of 00:00: in the [place] morning. Medical Branch PARoxetine 2021- Yes 20mg Take 20 mg U nivers 20 mg 1-21 by mouth ity of tablet 00:00: in the [place] morning. Medical Branch LORazepam 1 2021-09 Yes 1mg Take 1 mg U nivers mg tablet 1-21 by mouth ity of 00:00: in the [place] 00 morning. Medical Branch PARoxetine 2021- Yes 20mg Take 20 mg U nivers 20 mg 1-21 by mouth ity of tablet 00:00: in the [place] morning. Medical Branch LORazepam 2021-09 Yes 1mg Take 1 mg U nivers mg tablet 1-21 by mouth ity of 00:00: in the [place] morning. Medical Branch PARoxetine 2021- Yes 20mg Take 20 mg U nivers 20 mg 1-21 by mouth ity of tablet 00:00: in the [place] 00 morning. Medical Branch LORazepam 1 2021-09 Yes 1mg Take 1 mg U nivers mg tablet 1-21 by mouth ity of 00:00: in the [place] morning. Medical Branch PARoxetine 2021- Yes 20mg Take 20 mg U nivers 20 mg 1-21 by mouth ity of tablet 00:00: in the [place] 00 morning. Medical Branch LORazepam 1 2021- Yes 1mg Take 1 mg U nivers mg tablet 1-21 by mouth ity of 00:00: in the [place] 00 morning. Medical Branch PARoxetine 2021- Yes 20mg Take 20 mg U nivers 20 mg 1-21 by mouth ity of tablet 00:00: in the [place] 00 morning. Medical Branch LORazepam 1 2021- Yes 1mg Take 1 mg U nivers mg tablet 1-21 by mouth ity of 00:00: in the [place] 00 morning. Medical Branch PARoxetine 2021- Yes 20mg Take 20 mg U nivers 20 mg 1-21 by mouth ity of tablet 00:00: in the [place] 00 morning. Medical Branch LORazepam 2021-09 Yes 1mg Take 1 mg U nivers mg tablet 1-21 by mouth ity of 00:00: in the [place] 00 morning. Medical Branch PARoxetine 2021- Yes 20mg Take 20 mg U nivers 20 mg 1-21 by mouth ity of tablet 00:00: in the [place] morning. Medical Branch LORazepam 1 2021-09 Yes 1mg Take 1 mg U nivers mg tablet 1-21 by mouth ity of 00:00: in the [place] morning. Medical Branch PARoxetine 2021- Yes 20mg Take 20 mg U nivers 20 mg 1-21 by mouth ity of tablet 00:00: in the [place] morning. Medical Branch LORazepam 1 2021-09 Yes 1mg Take 1 mg U nivers mg tablet 1-21 by mouth ity of 00:00: in the [place] morning. Medical Branch PARoxetine 2021- Yes 20mg Take 20 mg U nivers 20 mg 1-21 by mouth ity of tablet 00:00: in the [place] morning. Medical Branch LORazepam 1 2021-09 Yes 1mg Take 1 mg U nivers mg tablet 1-21 by mouth ity of 00:00: in the [place] morning. Medical Branch PARoxetine 2021- Yes 20mg Take 20 mg U nivers 20 mg 1-21 by mouth ity of tablet 00:00: in the [place] morning. Medical Branch LORazepam 1 2021-09 Yes 1mg Take 1 mg U nivers mg tablet 1-21 by mouth ity of 00:00: in the [place] morning. Medical Branch PARoxetine 2021- Yes 20mg Take 20 mg U nivers 20 mg 1-21 by mouth ity of tablet 00:00: in the [place] 00 morning. Medical Branch LORazepam 1 2021-09 Yes 1mg Take 1 mg U nivers mg tablet 1-21 by mouth ity of 00:00: in the [place] 00 morning. Medical Branch PARoxetine 2021- Yes 20mg Take 20 mg U nivers 20 mg 1-21 by mouth ity of tablet 00:00: in the [place] 00 morning. Medical Branch LORazepam 1 2021-09 Yes 1mg Take 1 mg U nivers mg tablet 1-21 by mouth ity of 00:00: in the [place] 00 morning. Medical Branch PARoxetine 2021-09 Yes 20mg Take 20 mg U nivers 20 mg 1-21 by mouth ity of tablet 00:00: in the [place] 00 morning. Medical Branch LORazepam 2021-09 Yes 1mg Take 1 mg U nivers mg tablet 1-21 by mouth ity of 00:00: in the [place] morning. Medical Branch PARoxetine 2021- Yes 20mg Take 20 mg U nivers 20 mg 1-21 by mouth ity of tablet 00:00: in the [place] morning. Medical Branch LORazepam 2021-09 Yes 1mg Take 1 mg U nivers mg tablet 1-21 by mouth ity of 00:00: in the [place] 00 morning. Medical Branch PARoxetine 2021-09 Yes 20mg Take 20 mg U nivers 20 mg 1-21 by mouth ity of tablet 00:00: in the [place] morning. Medical Branch LORazepam 2021-09 Yes 1mg Take 1 mg U nivers mg tablet 1-21 by mouth ity of 00:00: in the [place] 00 morning. Medical Branch SERTraline 2020-0 Yes 100mg Take 100 [place] 100 mg 1-25 mg by ity of tablet 18:52: mouth [place] 12 daily. Medical Prescribed Branch by [facility] - Apr 2019 SERTraline 2020-0 Yes 100mg Take 100 [place] 100 mg 1-25 mg by ity of tablet 18:52: mouth [place] 12 daily. Medical Prescribed Branch by [facility] - Apr 2019 SERTraline 2020-0 Yes 100mg Take 100 [place] 100 mg 1-25 mg by ity of tablet 18:52: mouth [place] 12 daily. Medical Prescribed Branch by [facility] - Apr 2019 olanzapine 2020-0 Yes Take by [facility] ers (ZYPREXA 1-25 mouth 2 ity of ORAL) 18:52: (two) [place] 09 times Medical daily. Branch Prescribed by [facility] - Apr 2019 olanzapine 2020-0 Yes Take by [facility] ers (ZYPREXA 1-25 mouth 2 ity of ORAL) 18:52: (two) [place] 09 times Medical daily. Branch Prescribed by [facility] no - Apr 2019 olanzapine 2020-0 Yes Take by [facility] ers (ZYPREXA 1-25 mouth 2 ity of ORAL) 18:52: (two) [place] 09 times Medical daily. Branch Prescribed by [facility] no - Apr 2019 gabapentin 2020-0 Yes Take by [facility] ers 300 mg/6 mL 1-25 mouth 2 ity o f (6 mL) 18:52: (two) [place] solution 07 times Medical daily. Branch prescribed at [facility] no summer 2018 gabapentin 2020-0 Yes Take by [facility] ers 300 mg/6 mL 1-25 mouth 2 ity o f (6 mL) 18:52: (two) [place] solution 07 times Medical daily. Branch prescribed at [facility] no summer 2018 gabapentin 2020-0 Yes Take by [facility] ers 300 mg/6 mL 1-25 mouth 2 ity o f (6 mL) 18:52: (two) [place] solution 07 times Medical daily. Branch prescribed at [facility] no summer 2018 OXcarbazepi 2020-0 [...] to 50 mg po daily Sertraline Sertraline 2019- Yes JAZMYN TEDDY 1 QD TAKE ONE [...] BY MOUTH TWICE A DAY. busPIRone Yes [id number] 15mg Take 1 [place] 15 mg 6-06 tablet by ity of tablet 00:00: mouth 2 [place] 00 (two) Medical times Branch daily. DULoxetine Yes [id number] 60mg Take 1 U nivers 60 mg 6-04 capsule by ity of capsule 00:00: mouth [place] 00 daily. Medical Branch DULoxetine Yes [id number] 30mg Take 1 U nivers 30 mg 6-04 capsule by ity of capsule 00:00: mouth [place] 00 daily. Medical Branch OXcarbazepi Yes 600mg Take 600 U nivers ne 5-29 mg by ity of (TRILEPTAL) 19:48: mouth 2 [place] as 600 mg 44 (two) Medical tablet times Branch daily. traZODONE Yes [id number] 25mg Take 0.5 Univers 50 mg 5-29 tablets by ity of tablet 00:00: mouth 2 [place] 00 (two) Medical times Branch daily. Multi-Vitam Multi-Vitam Yes M.A. U T in TABS in TABS Physici ans Vital Signs Vital Name Observation Time Observation Value Comments Source Systolic blood 2022-11-28 104 mm[Hg] University pressure 17:50:00 [facility] Diastolic blood 2022-11-28 52 mm[Hg] University o pressure 17:50:00 [facility] Heart rate 2022-11-28 106 /min University of 17:50:00 [facility] Body height 2022-11-28 172.7 cm University of 17:50:00 [facility] Body weight 2022-11-28 62.551 kg University of 17:50:00 [place] [facility] BMI 2022-11-28 20.97 kg/m2 University of 17:50:00 [facility] Oxygen saturation 2022-11-28 93 /min University of in Arterial blood 17:50:00 [place] [facility] by Pulse oximetry Branch Systolic blood 2022-10-20 108 mm[Hg] University of pressure 14:09:00 [facility] Diastolic blood 2022-10-20 65 mm[Hg] University o f pressure 14:09:00 [facility] Heart rate 2022-10-20 95 /min University of 14:09:00 [facility] Body temperature 2022-10-20 37.06 Jeana University of 14:09:00 [facility] Body height 2022-10-20 172.7 cm University of 14:09:00 [facility] Body weight 2022-10-20 58.968 kg University of 14:09:00 [facility] BMI 2022-10-20 19.77 kg/m2 University of 14:09:00 [facility] Oxygen saturation 2022-10-20 98 /min University of in Arterial blood 14:09:00 [place] [facility] by Pulse oximetry Branch Systolic blood 2022-09-05 101 mm[Hg] University of pressure 20:22:00 [facility] Diastolic blood 2022-09-05 64 mm[Hg] University o f pressure 20:22:00 [facility] Heart rate 2022-09-05 62 /min University of 20:22:00 [facility] Body temperature 2022-09-05 36.33 Jeana University of 20:22:00 [facility] Body height 2022-09-05 172.7 cm University of 20:22:00 [facility] Body weight 2022-09-05 56.337 kg University of 20:22:00 [facility] BMI 2022-09-05 18.88 kg/m2 University of 20:22:00 [facility] Oxygen saturation 2022-09-05 97 /min University of in Arterial blood 20:22:00 [place] [facility] by Pulse oximetry Branch Systolic blood 2022-09-03 110 mm[Hg] University of pressure 05:40:00 [facility] Diastolic blood 2022-09-03 81 mm[Hg] University o f pressure 05:40:00 [facility] Heart rate 2022-09-03 64 /min University of 05:40:00 [facility] Body temperature 2022-09-03 37.22 Jeana [facility] 05:40:00 [facility] Respiratory rate 2022-09-03 18 /min University 05:40:00 [facility] Body height 2022-09-03 172.7 cm University 05:40:00 [facility] Body weight 2022-09-03 57.153 kg University 05:40:00 [facility] BMI 2022-09-03 19.16 kg/m2 University 05:40:00 [facility] Oxygen saturation 2022-09-03 100 /min [facility] in Arterial blood 05:40:00 [facility] by Pulse oximetry Branch Systolic blood 2022-09-02 114 mm[Hg] University of pressure 17:17:00 [facility] Diastolic blood 2022-09-02 75 mm[Hg] University o f pressure 17:17:00 [facility] Heart rate 2022-09-02 81 /min University 17:17:00 [facility] Body temperature 2022-09-02 36.61 Jeana University of 17:17:00 [facility] Respiratory rate 2022-09-02 18 /min University of 17:17:00 [facility] Oxygen saturation 2022-09-02 99 /min [facility] in Arterial blood 17:17:00 [facility] by Pulse oximetry Branch Body weight 2022-09-01 61 kg University of 19:40:00 [facility] BMI 2022-09-01 20.45 kg/m2 University of 19:40:00 [facility] Body height 2022-09-01 172.7 cm University of 19:36:00 [facility] BP Systolic 2019-10-20 118 mm[Hg] Location: RUE; [facility] 12:54:00 Position: Sitting BP Diastolic 2019-10-20 53 mm[Hg] Location: RUE; [facility] 12:54:00 Position: Sitting Height 2019-10-20 169 [...] Heart Rate 2019-02-24 62 /min Quality: Normal [facility] 10:04:00 Respiration Rate 2019-02-24 18 [...] [facility] 10:53:00 Temperature 2019-02-07 98 [degF] [facility] 10:53:00 Procedures Procedure Date / Time Performing Clinician Source Performed [facility] PATIENT FINANCIAL 2022-11-28 17:49:34 Doctor Unassigned, No [facility] POLICY Name Medical Branch EXTERNAL PROVIDER 2022-11-19 06:01:00 Doctor Unassigned, No [facility] RECORDS Name Medical Branch DEXA AXIAL (HIP AND 2022-09-17 19:58:00 Kenya Fuentes [facility] SPINE) Medical Branch EXTERNAL PROVIDER 2022-09-16 06:01:00 Doctor Unassigned, No [facility] RECORDS Name Medical Branch ASSIGNMENT OF BENEFITS 2022-09-05 19:47:49 Doctor Unassigned, No [facility] Name [facility] Branch COMP. METABOLIC PANEL 2022-09-01 10:44:00 Stephen [facility] ([id number]) [facility] CBC WITH DIFF 2022-09-01 10:44:00 Stephen [facility] XR CHEST 1 VW 2022-09-01 10:15:00 Johann Cormier [facility] CREATINE KINASE 2022-08-31 09:35:00 Ninfa [facility] MAGNESIUM 2022-08-31 09:35:00 Jael Coppola [facility] TROPONIN I 2022-08-31 09:35:00 Jael Coppola [facility] COMP. METABOLIC PANEL 2022-08-31 09:35:00 Jael Coppola [facility] ([id number]) [facility] SALICYLATE 2022-08-31 09:35:00 Jael Coppola [facility] ETHANOL 2022-08-31 09:35:00 Jael Coppola [facility] CBC WITH DIFF 2022-08-31 09:35:00 Jael Coppola [facility] URINE DRUG (IMMUNOASSAY) 2022-08-31 09:07:00 Jael Coppola [facility] COMPREHENSIVE DRUG Medical [facility] SCREEN URINE DRUG (LCMSMS) - 2022-08-31 09:07:00 Jael Coppola [facility] COMPREHENSIVE DRUG PANEL Medical Branch AC PANEL 20 + LACTIC 2022-08-31 09:01:00 Jael Coppola [facility] XR CHEST 1 VW 2022-08-31 05:44:00 Jael Coppola [facility] XR KUB 2022-08-31 05:44:00 Jael Coppola [facility] AUTHORIZATION FOR 2020-08-21 06:01:00 Doctor Unassigned, No [facility] RELEASE OF PHI Name Medical Branch [QLH] CBC (INCLUDES 2019-10-20 00:00:00 [facility] DIFF/PLT) [QL] CMP W/EGFR 2019-10-20 00:00:00 [facility] [QL] LIPID PANEL 2019-10-20 00:00:00 [facility] [QL] TSH, 3RD 2019-10-20 00:00:00 [facility] GENERATION [QH] DRUG 2019-07-20 00:00:00 [facility] SCREEN,COMPREHENSIVE (URINE) [QH] DRUG 2019-02-24 00:00:00 [facility] SCREEN,COMPREHENSIVE (URINE) Encounters Start End Encounter Admission Attending Care Care Encounter Source Date/Time Date/Time Type Type Clinicians Facility Department ID 2023-04-24 2023-04-24 Outpatient R [facility] [id number] Univers 11:00:00 11:00:00 DONTA rojas [facility] 2022-12-30 2022-12-30 Telephone [place] [facility] 1.2.840.114 [id number] Univers 00:00:00 00:00:00 [facility] 350.1.13.[address] [facility] [id number] [facility] [place] [address] Branch [facility] 2022-12-03 2022-12-03 Outpatient R [facility] [id number] Univers 14:00:00 14:00:00 KENYA rojas [facility] 2022-12-02 2022-12-02 Telephone Alfredo [facility] [id number] Univers 00:00:00 00:00:00 Kenya [facility] 350.1.13.10 [place] 4.2.7.2.686 Sathya as NELSON?BLEA [phone] Ia apryl SERNA [address] [place] MEDICAL OFFICE [facility] 2022-11-28 2022-11-28 Outpatient R [facility] [id number] Univers 12:00:00 13:03:08 DONTA rojas [facility] 2022-11-28 2022-11-28 [facility] [id number] Univers 12:00:00 13:03:08 Visit Donta Bundy HEALTH 350.1.13.10 it y of [place] 4.2.7.2.686 Sathya as NELSON?BLEA [id number] [facility] [address] [facility] OFFICE [facility] 2022-11-28 2022-11-28 Orders Doctor BRITTNEE 1.2.840.114 [id number] Univers 00:00:00 00:00:00 Only Unassigned, FRANCA 350.1.13.10 ity of [facility] 4.2.7.2.686 Sathya as [id number] [address] 2022-11-19 2022-11-19 Orders Doctor BRITTNEE 1.2.840.114 [id number] Univers 00:00:00 00:00:00 Only Unassigned, FRANCA 350.1.13.10 ity of [facility] 4.2.7.2.686 Sathya as [id number] [address] 2022-10-20 2022-10-20 [facility] [id number] Univers 08:00:00 08:45:36 KENYA rojas [facility] 2022-10-20 2022-10-20 [facility] 1.2.840.114 [id number] Univers 08:00:00 08:45:36 Visit [place] HEALTH 350.1.13.10 it y of [place] 4.2.7.2.686 Sathya as NELSON?BLEA [id number] [facility] 0[address] [facility] OFFICE [facility] 2022-09-23 2022-09-23 [facility]phone [facility] [id number] Univers 00:00:00 00:00:00 [place] HEALTH 350.1.13.10 it y of [place] 4.2.7.2.686 Sathya as NELSON?BLEA [phone] [address] MEDICAL OFFICE [facility] 2022-09-17 2022-09-17 [facility] [id number] Univers 13:39:39 23:59:00 KENYA rojas of [facility] 2022-09-17 2022-09-17 Hospital [facility] 1.2.840.114 [id number] Univers 13:39:39 23:59:00 Encounter Kenya CHAPPELL 350.1.13.10 ity of [facility] [place] [id number] [facility] [address] [place] 2022-09-16 2022-09-16 Orders Doctor BRITTNEE 1.2.840.114 [id number] Univers 00:00:00 00:00:00 Only Unassigned, FRANCA 350.1.13.10 ity of [facility] 4.2.7.2.686 Sathya as [id number] [address] 2022-09-05 2022-09-05 [facility] [id number] Univers 14:00:00 14:51:04 KENYA rojas [facility] 2022-09-05 2022-09-05 Office [facility] 1.2.840.114 [id number] Univers 14:00:00 14:51:04 Visit [place] MEDINA 350.1.13.10 it y [facility] 4.2.7.2.686 Sathya as NELSON?BLEA [id number] [address] MEDICAL OFFICE [facility] 2022-09-05 2022-09-05 Orders Doctor BRITTNEE 1.2.840.114 [id number] Univers 00:00:00 00:00:00 Only Unassigned, FRANCA 350.1.13.10 ity of [facility] 4.2.7.2.686 Sathya as [id number] [facility] [address] [place] 2022-09-03 2022-09-03 Transition MINERVA Steiner 1.2.840.114 [id number] Univers 00:00:00 00:00:00 of Care Marilu MCMULLEN 350.1.13.10 [place] [id number] [facility] [address] 2022-09-02 2022-09-02 Emergency X NATALIE [facility] ERT [id number] Univers 23:43:00 23:56:00 TRINIDAD ity of [facility] 2022-09-02 2022-09-02 Emergency Natalie [facility] 1.2.840.114 [id number] Univers 23:43:00 23:56:00 Trinidad Svetlana CHAPPELL 350.1.13.10 ity of [place] 4.2.[place].2.[place] [id number] [facility] 084 Branch 2022-08-30 2022-09-02 Inpatient X CHAPO [facility] MOOSE [id number] Univers 22:42:00 15:34:00 [place] ity [facility] 2022-08-30 2022-09-02 [facility] Campbell Guerrero 1. 2.840.114 [id number] Univers 22:42:00 15:34:00 Encounter Ayaan Yung 350.1.13.10 ity of [facility] 4.2.7.2.686 [place] [id number] [facility] 093 Branch 2020-08-21 2020-08-21 Orders Doctor BEAULIEU 1.2.840.114 [id number] 00:00:00 00:00:00 Only UnassignedFRANCA 350.1.13.10 [facility] 4.2.7.2.686 [id number] 009 2020-08-21 2020-08-21 Orders Doctor BEAULIEU 1.2.840.114 [id number] Univers 00:00:00 00:00:00 Only UnassignedFRANCA 350.1.13.10 ity of [facility] 4.2.7.2.686 Sathya as [id number] [facility] [address]9 Branch 2019-12-08 2019-12-08 Office Oxana [facility] 1.2.840.114 [id number] 13:05:19 14:05:19 Visit Kim MARES 350.1.13.10 [place] 4.2.7.2.686 [place] [id number] [facility] 2019-12-08 2019-12-08 Office [facility] 1.2.840.114 [id number] [facility] 13:05:19 14:05:19 Visit Kim N SPECIALTY 350.1.13.10 ity of [place] 4.2.7.2.686 Lisa MCGARRY [id number] [address] 2019-12-08 2019-12-08 Outpatient R [facility] [id number] [facility] 13:15:00 13:15:00 KIM ity o f [facility] 2019-10-20 2019-10-20 Appointmen CHAR ESPINAL Multispecia [id number] [place] 13:00:00 13:00:00 t; JAZMYN ESPINAL M.D. lty - [facility] 2019-07-20 2019-07-20 Appointmen CHAR ESPINAL Psychiatry [id number] [place] 13:00:00 13:00:00 t; JAZMYN ESPINAL M.D. Outpatient Physici [facility] ans [facility] 2019-06-08 2019-06-08 Telephone [facility] 1.2.840.114 [id number] [facility] 00:00:00 00:00:00 Kim N SPECIALTY 350.1.13.10 ity of [place] 4.2.7.2.686 Lisa MCGARRY [id number] [address] 2019-02-24 2019-02-24 Appointmen CHAR ESPINAL [id number] [place] 10:00:00 10:00:00 t; JAZMYN ESPINAL M.D. [place] [facility] SABA, M.D. [facility] 2019-02-07 2019-02-07 Appointmen CHAR VAZQUEZ Multispecia [id number] [place] 10:20:00 10:20:00 t; milton FLETCHER - Physi CHANCE Elmore APRN, APRN Results Test Description Test Time Test Comments Results Result Comments Source COMP. METABOLIC PANEL (17823) 2022-09-01 11:26:16 Test Item Value Reference Range Interpretation Comme nts NA (test code = 8398984717) 138 mmol/L 135-145 K (test code = 6678584802) 3.5 mmol/L 3.5-5.0 S light hemolysis CL (test code = 7338019632) 110 mmol/L 98-108 H CO2 TOTAL (test code = 26 mmol/L 23-31 7942811455) AGAP (test code = 2-16 8673671925) BUN (test code = 9 mg/dL 7-23 Slight hemo lysis 5729623538) GLUCOSE (test code = 99 mg/dL 70-110 0647051304) CREATININE (test code = 0.73 mg/dL 0.60-1.25 3161917769) TOTAL BILI (test code = 0.9 mg/dL 0.1-1.5 0666180619) CALCIUM (test code = 8.2 mg/dL 8.6-10.6 L 9886849663) T PROTEIN (test code = 5.5 g/dL 6.3-8.2 L 7109218193) ALBUMIN (test code = 3.3 g/dL 3.5-5.0 L 0687247996) ALK PHOS (test code = 75 U/L 34-122 Slight hemolysis 7381577697) ALTv (test code = 1742-6) 16 U/L 5-50 AST(SGOT) (test code = 30 U/L 13-40 Sligh t hemolysis 3282645811) eGFR (test code = mL/min/1.73m2 6227798968) KACI (test code = KACI) Association of [...] tests). Lab Interpretation (test Abnormal code = 39705-2) [facility] WITH [id number] 11:03:17 Test Item Value Reference Range Interpretation Comments WBC (test code = See_Comment [Automated 5990-2) message] The sy stem which generated this result transmitted reference range : 4.20 - 10.70 10*3/?L. The reference range was not used to interpret this result as normal/abnormal . RBC (test code = See_Comment L [Automated 029-8) message] The sy stem which generated this [...] RDW-SD (test code = 41.7 fL 38.5-51.6 45197-5) RDW-CV (test code = 13.2 % 12.1-15.4 788-0) PLT (test code = See_Comment [Automated 777-3) message] The sy stem which generated this result transmitted reference range : 150 - 328 10*3/ ?L. The reference r evita was not used to interpret this result as normal/abnormal . MPV (test code = 11.9 fL 9.8-13.0 30678-9) NRBC/100 WBC (test See_Comment [Automat ed code = 7542917137) message] The system which generated this result transmitted reference range : 0.0 - 10.0 /100 WBCs. The refer ence range was not u sed to interpret th is result as normal/abnormal . NRBC x10^3 (test code See_Comment [Auto mated = 6326179779) message] The s ystem which generated this result transmitted reference range : 10*3/?L. The reference range was not used to interpret this result as normal/abnormal . GRAN MAT (NEUT) % 62.3 % (test code = 770-8) IMM GRAN % (test code 0.20 % = 3882583996) LYMPH % (test code = 25.7 % 736-9) MONO % (test code = 8.0 % 5905-5) EOS % (test code = 3.4 % 713-8) BASO % (test code = 0.4 % 706-2) GRAN MAT x10^3(ANC) 5.01 10*3/uL 1.99-6.95 (test code = 1760506287) IMM GRAN x10^3 (test 0.00-0.06 code = 2098333177) LYMPH x10^3 (test code 2.07 10*3/uL 1.09-3.23 = 731-0) MONO x10^3 (test code 0.64 10*3/uL 0.36-1.02 = 742-7) EOS x10^3 (test code = 0.27 10*3/uL 0.06-0.53 711-2) BASO x10^3 (test code 0.03 10*3/uL 0.01-0.09 = 704-7) Lab Interpretation Abnormal (test code = 14336-8) [facility] [id number] 17:58:42 Test Item Value Reference Range Interpretation Comments CK (test code = 8392634615) 180 U/L 33-194 Lab Interpretation (test code = Normal 61400-8) [facility] Center[facility] [id number] 11:09:00 Test Item Value Reference Interpretation Comments Range TROPONIN I (test 0.001 ng/mL See_Comment [Automated code = 4792817329) message] The system which generated this result [...] biotin. Lab Interpretation Normal (test code = 75763-3) [facility] CenterSALICYLATE2022-12-04 10:59:14 SALICYLATE<10mg/L111/01/2021 4:[address]ORAT[facility] SERVICESTherapeutic Range: ? Analgesic and Antipyretic Use ? 20-100 mg/L ? ? Anti- Inflammatory Use ? 100-250 mg/L Toxic Range: ? Greater than 300 mg/LUnCHRISTUS [facility]ohn Hospital BeevilleETHANOL2022-12-04 10:59:14ALCOHOL<10mg/dL08/31/2022 4:59 AM CSTUTMB LABORATORY SERVICESToxic Greater than or equal to 80 mg/dL. NOTE: Whole blood values are approximately 10% to 15% lower than serum and plasma.[facility] [id number] 10:59:09 Test Item Value Reference Range Interpretation Comments ACETAMINOP (test code = 10.0-30.0 L 8618869956) KACI (test code = KACI) Toxic: Greater than 200 ug/mL @ 4 hour post ingestion or greater than 50 ug/mL @ 12 hour post ingestion Lab Interpretation (test Abnormal code = 20590-3) [facility] CenterMAGNESIUM2022-12-04 10:58:19 Test Item Value Reference Range Interpretation Comments MAGNESIUM (test code = 6850431535) 1.8 mg/dL 1.7-2.4 Lab Interpretation (test code = Normal 80284-1) [facility]. METABOLIC PANEL (74678)2022-08-31 10:58:18 Test Item Value Reference Range Interpretation Comments NA (test code = 141 mmol/L 135-145 4787945320) K (test code = 4.0 mmol/L 3.5-5.0 2657980499) CL (test code = 110 mmol/L 98-108 H 0757431271) CO2 TOTAL (test code = 25 mmol/L 23-31 5599379382) AGAP (test code = 2-16 8708976797) BUN (test code = 5 mg/dL 7-23 L 9773362317) GLUCOSE (test code = 80 mg/dL 70-110 0427347394) CREATININE (test code = 0.71 mg/dL 0.60-1.25 0028187124) TOTAL BILI (test code = 0.5 mg/dL 0.1-1.2 5461184839) CALCIUM (test code = 7.7 mg/dL 8.6-10.6 L 9760477489) T PROTEIN (test code = 5.2 g/dL 6.3-8.2 L 1065964847) ALBUMIN (test code = 3.3 g/dL 3.5-5.0 L 4496742708) ALK PHOS (test code = 71 U/L 34-122 9806555476) ALTv (test code = 16 U/L 5-50 1742-6) AST(SGOT) (test code = 23 U/L 13-40 7710211365) eGFR (test code = mL/min/1.73m2 4796377453) KACI (test code = KACI) Association of [...] tests). Lab Interpretation Abnormal (test code = 94877-1) [facility] WITH [id number] 09:52:32 Test Item Value Reference Range Interpretation [...] RDW-SD (test code = 41.1 fL 38.5-51.6 75591-8) RDW-CV (test code = 12.9 % 12.1-15.4 788-0) PLT (test code = See_Comment [Automated 777-3) message] The system which generated this result transmit jordon reference range : 150 - 328 10*3/ ?L. The reference range was not u sed to interpret th is result as normal/abnormal . MPV (test code = 11.1 fL 9.8-13.0 87060-1) NRBC/100 WBC (test See_Comment [Automat ed code = 8483297934) message] The system which generated this result transmit jordon reference range : 0.0 - 10.0 /100 WBCs. The reference range was not used to interpret this result as normal/abnormal . NRBC x10^3 (test code See_Comment [Auto mated = 9417792809) message] The system which generated this result transmit jordon reference range : 10*3/?L. The reference range was not used to interpret this result as normal/abnormal . GRAN MAT (NEUT) % 90.1 % (test code = 770-8) IMM GRAN % (test code 0.40 % = 3339945039) LYMPH % (test code = 5.4 % 736-9) MONO % (test code = 3.8 % 5905-5) EOS % (test code = 0.1 % 713-8) BASO % (test code = 0.2 % 706-2) GRAN MAT x10^3(ANC) 14.75 10*3/uL 1.99-6.95 H (test code = 1964802061) IMM GRAN x10^3 (test 0.06 10*3/uL 0.00-0.06 code = 2108099995) LYMPH x10^3 (test code 0.88 10*3/uL 1.09-3.23 L = 731-0) MONO x10^3 (test code 0.62 10*3/uL 0.36-1.02 = 742-7) EOS x10^3 (test code = 0.06-0.53 L 711-2) BASO x10^3 (test code 0.03 10*3/uL 0.01-0.09 = 704-7) Lab Interpretation Abnormal (test code = 12299-7) [facility] Panel 20 + Lactic [id number] 09:16:12 Test Item Value Reference Range Interpretation Comments PH (test code = 2) 7.35-7.45 PCO2 (test code = See_Comment [Automate d 7705653564) message] The sy stem which generated this result transmitted reference range : 35 - 45 mmHg. The reference range was not used to interpret this result as normal/abnormal . PO2 (test code = See_Comment H [Automated 0441743118) message] The sy stem which generated this result transmitted reference range : 80 - 100 mmHg. The reference range was not used to interpret this result as normal/abnormal . HCO3 (test code = See_Comment L [Automate d 9513207220) message] The sy stem which generated this result transmitted reference range : 22 - 26 mEq/L. The reference range was not used to interpret this result as normal/abnormal . BE (test code = See_Comment L [Automated 6023739041) message] The sy stem which generated this result transmitted reference range : -3.0 - 3.0 mEq/ L. The reference r evita was not used to interpret this result as normal/abnormal . THB (test code = 13.2 g/dL 13.5-18.0 L 3529860934) %O2HB (test code = 98.8 % 94.0-99.0 9232351564) %COHB ART (test code = 0.3 % 0.0-1.5 5446140172) %METHB ART (test code = 0.2 % 0.4-1.5 L 5354633020) VOL%O2 ART (test code = 18.8 % 15.0-23.0 3527868778) NA (test code = 139 mmol/L 135-145 3290006514) K+ (test code = 3.9 mmol/L 3.5-5.0 8362723032) AC CA IONZ (test code = 4.60 mg/dL 4.50-5.30 7767170130) GLUCOSE (test code = 88 mg/dL 70-110 5212754134) LACTIC ACID (test code 1.04 mmol/L 0.50-2.20 = 0780960659) Lab Interpretation Abnormal (test code = 53733-0) [facility][H] Drug Screen Urine (9 Drugs)2019-07-20 [...] Propoxyphene Negative Negative Screen (test code = 59894-7) Urine Drug Screen Note See Note Drugs [...] ng/mLMethadone 300 ng/mLUrine alco hol 20 mg/dL [place] [facility][H] Drug Screen Urine (9 Drugs)2019-02-24 13:44:01 [...] Propoxyphene Negative Negative Screen (test code = 22120-0) Urine Drug Screen Note See Note Drugs [...]
[2023-08-25 10:52] LABS: Absolute Lymphocytes (CBC) 1.7 K/uL (0.7-4.9); Lymphocytes % 27.2 % (15.3-44.8); MCV 88.5 fL (80-100); MPV 8.5 fL (7.6-11.3); Platelets 247 thou/uL (152-406)
[2023-08-25] MEDS ORDERED: NA CHLORIDE 0.9% 1,000 ML ONE ×2 (10:53→11:53)
[2023-08-25 10:56] LABS: Protime INR 1.1
[2023-08-25 11:09] LABS: ALT/SGPT 22 U/L (16-61); AST/SGOT 11 U/L (15-37); Alkaline Phosphatase 131 U/L (45-117); BUN Blood Urea Nitrogen 11 mg/dL (7-18); Bicarbonate 26 mEq/L (21-32); Bilirubin Direct 0.2 mg/dL (0-0.2); Bilirubin Indirect, Calculated 0.3 mg/dL (0.2-0.8); Bilirubin Total 0.5 mg/dL (0.2-1.0); Glomerular Filtration Rate 134 ml/min (=/>90); Glucose Level 96 mg/dL (74-106); Potassium 3.8 mEq/L (3.5-5.1); Protein, Total 7.1 g/dL (6.4-8.2); Sodium Level 139 mEq/L (136-145)
--- NOTE | 2023-08-25 11:21 | EDPHYS ---
Physician Documentation [facility] Name: Chan Gale Age: 22 yrs Sex: Male : 2000 Arrival Date: 08/25/2023 Time: 10:18 Bed 6 Private MD: ED Physician William Espinosa HPI: 08/25 10:42 This 22 yrs old Male presents to ER via Ambulatory with complaints of Low Bp. jasmeet 10:42 low bp at drug rehab, takes ativan. The patient presents with decreased mental status. jasmeet Onset: The symptoms/episode began/occurred this morning. Possible causes: drug use, benzodiazepines, narcotics, low blood sugar. Associated signs and symptoms: Pertinent positives: lightheadedness, weakness. Onset: The symptoms/episode began/occurred. Current symptoms: In the emergency department the patient's symptoms are unchanged from the initial presentation. Patient's baseline: Neuro: alert and fully oriented. Severity of symptoms: At their worst the symptoms were mild in the emergency department the symptoms are unchanged. The patient has experienced similar episodes in the past, multiple times. Historical: - Allergies: 10:26 No Known Allergies; iw - PMHx: 10:26 adhd; Anxiety; avoident restrictive food intact disorder; Bipolar disorder; Depression; iw drug abuse; - Immunization history:: Adult Immunizations. - Family history:: not pertinent. - Social history:: Smoking status: Patient denies any tobacco usage or history of. Patient uses street drugs. ROS: 10:42 Constitutional: Negative for fever, chills, and weight loss, Eyes: Negative for injury, jasmeet pain, redness, and discharge, ENT: Negative for injury, pain, and discharge, Neck: Negative for injury, pain, and swelling, Cardiovascular: Negative for chest pain, palpitations, and edema, Respiratory: Negative for shortness of breath, cough, wheezing, and pleuritic chest pain, Abdomen/GI: Negative for abdominal pain, nausea, vomiting, diarrhea, and constipation, Back: Negative for injury and pain, : Negative for injury, bleeding, discharge, and swelling, MS/Extremity: Negative for injury and deformity, Skin: Negative for injury, rash, and discoloration, Allergy/Immunology: Negative for hives, rash, and allergies, Endocrine: Negative for neck swelling, polydipsia, polyuria, polyphagia, and marked weight changes, Hematologic/Lymphatic: Negative for swollen nodes, abnormal bleeding, and unusual bruising, 10:42 Neuro: Positive for altered mental status, weakness, 10:42 Psych: Positive for depression, Negative for alcohol dependence, auditory hallucinations, visual hallucinations, homicidal ideation, suicide gesture, suicidal ideation, Exam: 10:42 Constitutional: This is a well developed, well nourished patient who is awake, alert, jasmeet and in no acute distress. Head/Face: Normocephalic, atraumatic. Eyes: Pupils equal round and reactive to light, extra-ocular motions intact. Lids and lashes normal. Conjunctiva and sclera are non-icteric and not injected. Cornea within normal limits. Periorbital areas with no swelling, redness, or edema. ENT: Nares patent. No nasal discharge, no septal abnormalities noted. Tympanic membranes are normal and external auditory canals are clear. Oropharynx with no redness, swelling, or masses, exudates, or evidence of obstruction, uvula midline. Mucous membranes moist. Neck: Trachea midline, no thyromegaly or masses palpated, and no cervical lymphadenopathy. Supple, full range of motion without nuchal rigidity, or vertebral point tenderness. No Meningismus. Chest/axilla: Normal chest wall appearance and motion. Nontender with no deformity. No lesions are appreciated. Cardiovascular: Regular rate and rhythm with a normal S1 and S2. No gallops, murmurs, or rubs. Normal PMI, no JVD. No pulse deficits. Respiratory: Lungs have equal breath sounds bilaterally, clear to auscultation and percussion. No rales, rhonchi or wheezes noted. No increased work of breathing, no retractions or nasal flaring. Abdomen/GI: Soft, non-tender, with normal bowel sounds. No distension or tympany. No guarding or rebound. No evidence of tenderness throughout. Back: No spinal tenderness. No costovertebral tenderness. Full range of motion. Male : Normal genitalia with no discharge or lesions. Skin: Warm, dry with normal turgor. Normal color with no rashes, no lesions, and no evidence of cellulitis. MS/ Extremity: Pulses equal, no cyanosis. Neurovascular intact. Full, normal range of motion. Neuro: Awake and alert, GCS 15, oriented to person, place, time, and situation. Cranial nerves II-XII grossly intact. Motor strength 5/5 in all extremities. Sensory grossly intact. Cerebellar exam normal. Normal gait. Psych: Awake, alert, with orientation to person, place and time. Behavior, mood, and affect are within normal limits. 11:09 ECG was reviewed by the Attending Physician. [facility] Vital Signs: 10:24 BP 113 / 73; Pulse 83; Resp 16; Temp 97.6; Pulse Ox 100% on R/A; Weight 49.9 kg; Pain iw 0/10; 10:35 BP 102 / 71; Pulse 87; Resp 16; Pulse Ox 100% on R/A; db 11:05 BP 97 / 68; Pulse 92; Resp 18; Pulse Ox 100% on R/A; db 11:25 BP 101 / 68; Pulse 58; Resp 18; Pulse Ox 100% on R/A; db 11:30 BP 102 / 70; Pulse 96; Resp 18; Pulse Ox 100% on R/A; db 11:35 BP 106 / 71; Pulse 97; Resp 18; Pulse Ox 100% on R/A; db 12:00 BP 115 / 77; Pulse 63; Resp 16; Pulse Ox 100% on R/A; db 10:24 Pain Scale: Adult iw NIH Stroke Scale Scores: 10:42 NIHSS Score: 0 jasmeet MDM: 10:21 Patient medically screened. jasmeet 10:46 Differential Diagnosis altered mental status. Differential Diagnosis: CVA, electrolyte jasmeet abnormality, alcohol intoxication, hypoglycemia, intracranial bleed, overdose, volume depletion. Data reviewed: vital signs, nurses notes, lab test result(s), EKG. Consideration of Admission/Observation Escalation of care including admission/observation considered. I considered the following discharge prescriptions or medication management in the emergency department Medications were administered in the Emergency Department. See MAR. Test considered but Not performed: X-ray: no cxr. Care significantly affected by the following chronic conditions: drug use, eating disorder, bipolar. 08/25 10:23 Order name: Acetaminophen; Complete Time: 11:20 [facility] 08/25 10:23 Order name: Basic Metabolic Panel; Complete Time: 11:20 [facility] 08/25 10:23 Order name: CBC with Diff; Complete Time: 11:08 08/25 10:23 Order name: ETOH Level; Complete Time: 11:08/25 10:23 Order name: Hepatic Function; Complete Time: 11:20 [facility] 08/25 10:23 Order name: PT-INR; Complete Time: 11:08 [facility] 08/25 10:23 Order name: Ptt, Activated; Complete Time: 11:08 [facility] 08/25 10:23 Order name: Salicylate; Complete Time: 11:20 [facility] 08/25 10:23 Order name: Urine Drug Screen; Complete Time: 12:04 [facility] 08/25 11:26 Order name: Urinalysis w/ reflexes; Complete Time: 12:04 EDMS 08/25 10:23 Order name: EKG; Complete Time: 10:24 [facility] 08/25 10:23 Order name: EKG - Nurse/Tech; Complete Time: 10:46 [facility] 08/25 10:23 Order name: IV Saline Lock; Complete Time: 10:46 [facility] 08/25 10:23 Order name: Labs collected and sent; Complete Time: 10:46 [facility] 08/25 10:23 Order name: Suicide Screening ([place]); Complete Time: 10:46 [facility] 08/25 11:21 Order name: Orthostatics; Complete Time: 11:41 [facility] 08/25 12:04 Order name: PO challenge; Complete Time: 12:09 [facility] EC:09 Rate is 90 beats/min. Rhythm is regular. QRS [place] is Normal. SC interval is normal. QRS jasmeet interval is normal. QT interval is normal. No Q waves. T waves are Normal. No ST changes noted. Clinical impression: Normal ECG and No evidence of ischemia. Interpreted by me. Reviewed by me. Administered Medications: 10:46 Drug: NS 0.9% IV 1000 ml IV at 1 bolus Per protocol; 1000 mL bolus Route: IV; Rate: 1 kc6 bolus; Site: right antecubital; 12:18 Follow up: Response: No adverse reaction; IV Status: Completed infusion; IV Intake: db 1000ml 11:40 Drug: NS 0.9% IV 1000 ml IV at 1 bolus Per protocol; 1000 mL bolus Route: IV; Rate: 1 db bolus; Site: right antecubital; 12:18 Follow up: Response: No adverse reaction; IV Status: Completed infusion; IV Intake: db 1000ml Disposition Summary: 08/25/23 11:20 Discharge Ordered Notes: Location: Home jasmeet Problem: new jasmeet Symptoms: have improved jasmeet Condition: Stable jasmeet Diagnosis - Weakness jasmeet - Abuse of other non-psychoactive substances jasmeet - Hypotension, unspecified - resolved jasmeet Followup: jasmeet - With: Private Physician - When: 2 - 3 days - Reason: Recheck today's complaints, Continuance of care, Re-evaluation by your physician Followup: jasmeet - With: Marty Armas MD - When: 2 - 3 days - Reason: Recheck today's complaints, Re-evaluation by your physician Discharge Instructions: - Discharge Summary Sheet jasmeet - Finding Treatment for Addiction jasmeet - Hypotension jasmeet - Substance Use Disorder jasmeet - Weakness jasmeet - Supporting Someone With an Addiction jasmeet - Fatigue jasmeet - Hypotension, [id number] jasmeet - Weakness, [id number] jasmeet - Deconditioning jasmeet - Substance Use Disorder and Mental Illness jasmeet - Illegal Drug Use Information, Adult jasmeet - Supporting Someone With Substance Use Disorder jasmeet Forms: - Medication Reconciliation Form jasmeet - Thank You Letter jasmeet - Antibiotic Education jasmeet - Prescription Opioid Use jasmeet - Patient Portal Instructions jasmeet - Leadership Thank You Letter [facility] NIH Stroke Scale - NIH Stroke Score Date: 08/25/2023 Time: 10:42 Total Score = 0 10. Dysarthria (speech clarity - read or repeat words) - 0(Normal) 11. Extinction and Inattention (visual/tactile/auditory/spatial/personal) - 0(No abnormality) 1a. Level of Consciousness (LOC) - 0(Alert) 1b. Level of Consciousness (LOC) (Month \T\ Age) - 0(Both) 1c. LOC Commands (Open \T\ Closes Eyes/Seafood Service Team Member) - 0(Both) 2. Best Gaze (Lateral Gaze Paresis) - 0(Normal) 3. Visual Field Loss - 0(No visual loss) 4. Facial Palsy - 0(Normal) 5a. Left Arm: Motor (10-second hold) - 0(No drift) 5b. Right Arm: Motor (10-second hold) - 0(No drift) 6a. Left Leg: Motor (5-second hold - always test supine) - 0(No drift) 6b. Right Leg: Motor (5-second hold - always test supine) - 0(No drift) 7. Limb Ataxia (finger/nose \T\ heel/collado - test with eyes open) - 0(Absent) 8. Sensory Loss (pinprick arms/legs/face) - 0(Normal) 9. Best Language: Aphasia (description/naming/reading) - 0(No aphasia) Initials: jasmeet Signatures: Dispatcher [employer] EDWilliam Alexandra MD MD cha Williams, Irene, RN JASON iw Julia Pollock RN RN kc6 Татьяна Marti RN RN db Corrections: (The following items were deleted from the chart) 11:29 10:24 Urinalysis+U.LAB.BRZ ordered. EDMS EDMS
--- NOTE | 2023-08-25 11:21 | ER ---
Nurse's Notes [facility] Name: Chan Gale Age: 22 yrs Sex: Male : 2000 Arrival Date: 08/25/2023 Time: 10:18 Bed 6 Private MD: Diagnosis: Weakness;Abuse of other non-psychoactive substances;Hypotension, unspecified-resolved Presentation: 08/25 10:24 Chief complaint: Patient states: he was at [facility] trying to get admitted to rehab, they told me my BP was too low but the machine was old. Coronavirus screen: At this time, the client does not indicate any symptoms associated with coronavirus-19. Ebola Screen: Patient negative for fever greater than or equal to 101.5 degrees Fahrenheit, and additional compatible Ebola Virus Disease symptoms Patient denies exposure to infectious person. Patient denies travel to an Ebola-affected area in the 21 days before illness onset. No symptoms or risks identified at this time. Initial Sepsis Screen: Does the patient meet any 2 criteria? No. Patient's initial sepsis screen is negative. Does the patient have a suspected source of infection? No. Patient's initial sepsis screen is negative. Risk Assessment: Do you want to hurt yourself or someone else? Patient reports no desire to harm self or others. Onset of symptoms was August 25, 2023. 10:24 Method Of Arrival: Ambulatory iw 10:24 Acuity: SIRISHA 4 iw 10:29 Acuity: SIRISHA 3 iw Historical: - Allergies: 10:26 No Known Allergies; iw - PMHx: 10:26 adhd; Anxiety; avoident restrictive food intact disorder; Bipolar disorder; Depression; iw drug abuse; - Immunization history:: Adult Immunizations. - Family history:: not pertinent. - Social history:: Smoking status: Patient denies any tobacco usage or history of. Patient uses street drugs. Screenin:28 [facility] ED Fall Risk Assessment (Adult) Score/Fall Risk Level 0 - 2 = Low Risk. iw 12:21 Abuse screen: Denies threats or abuse. Denies injuries from another. Nutritional db screening: NOT EATING IS NORMAL FOR PT. HAS HX. Tuberculosis screening: No symptoms or risk factors identified. Assessment: 10:27 General: Appears in no apparent distress. Behavior is cooperative. Pain: Denies pain. iw Neuro: Level of Consciousness is awake, alert, obeys commands. 10:50 Reassessment: Patient appears in no apparent distress at this time. Patient and/or db family updated on plan of care and expected duration. Pain level reassessed. PT HERE FOR LOW BP. Respiratory: Airway is patent Respiratory effort is even, unlabored, Respiratory pattern is regular, symmetrical. 11:45 Reassessment: PATIENT PROVIDED CHIPS AND JUICE. db 12:15 Reassessment: Patient appears in no apparent distress at this time. Patient and/or db family updated on plan of care and expected duration. Pain level reassessed. Patient states feeling better. Patient states symptoms have improved. Vital Signs: 10:24 BP 113 / 73; Pulse 83; Resp 16; Temp 97.6; Pulse Ox 100% on R/A; Weight 49.9 kg; Pain iw 0/10; 10:35 BP 102 / 71; Pulse 87; Resp 16; Pulse Ox 100% on R/A; db 11:05 BP 97 / 68; Pulse 92; Resp 18; Pulse Ox 100% on R/A; db 11:25 BP 101 / 68; Pulse 58; Resp 18; Pulse Ox 100% on R/A; db 11:30 BP 102 / 70; Pulse 96; Resp 18; Pulse Ox 100% on R/A; db 11:35 BP 106 / 71; Pulse 97; Resp 18; Pulse Ox 100% on R/A; db 12:00 BP 115 / 77; Pulse 63; Resp 16; Pulse Ox 100% on R/A; db 10:24 Pain Scale: Adult iw NIH Stroke Scale Scores: 10:42 NIHSS Score: 0 jasmeet ED Course: 10:20 Patient arrived in ED. mr 10:21 William Espinosa MD is Attending Physician. jasmeet 10:26 Triage completed. iw 10:26 Arm band placed on. iw 10:37 Татьяна Marti RN is Primary Nurse. db 10:50 Patient has correct armband on for positive identification. Bed in low position. Call db light in reach. Side rails up X 1. Client placed on continuous cardiac and pulse oximetry monitoring. NIBP monitoring applied. Warm blanket given. 11:20 Marty Armas MD is Referral Physician. jasmeet 12:21 Provided Education on: DISCHARGED. db 12:21 No provider procedures requiring assistance completed. IV discontinued, intact, db bleeding controlled, No redness/swelling at site. Administered Medications: 10:46 Drug: NS 0.9% IV 1000 ml IV at 1 bolus Per protocol; 1000 mL bolus Route: IV; Rate: 1 kc6 bolus; Site: right antecubital; 12:18 Follow up: Response: No adverse reaction; IV Status: Completed infusion; IV Intake: db 1000ml 11:40 Drug: NS 0.9% IV 1000 ml IV at 1 bolus Per protocol; 1000 mL bolus Route: IV; Rate: 1 db bolus; Site: right antecubital; 12:18 Follow up: Response: No adverse reaction; IV Status: Completed infusion; IV Intake: db 1000ml Medication: 10:28 VIS not applicable for this client. iw Intake: 12:18 IV: 1000ml; Total: 1000ml. db 12:18 IV: 1000ml; Total: 2000ml. db Outcome: 11:20 Discharge ordered by MD. jasmeet 12:21 Discharged to home ambulatory, with family, db 12:21 Condition: stable 12:21 Discharge instructions given to patient, family, Instructed on discharge instructions, follow up and referral plans. 12:24 Patient left the ED. db NIH Stroke Scale - NIH Stroke Score Date: 08/25/2023 Time: 10:42 Total Score = 0 10. Dysarthria (speech clarity - read or repeat words) - 0(Normal) 11. Extinction and Inattention (visual/tactile/auditory/spatial/personal) - 0(No abnormality) 1a. Level of Consciousness (LOC) - 0(Alert) 1b. Level of Consciousness (LOC) (Month \T\ Age) - 0(Both) 1c. LOC Commands (Open \T\ Closes Eyes/Firewall Engineer) - 0(Both) 2. Best Gaze (Lateral Gaze Paresis) - 0(Normal) 3. Visual Field Loss - 0(No visual loss) 4. Facial Palsy - 0(Normal) 5a. Left Arm: Motor (10-second hold) - 0(No drift) 5b. Right Arm: Motor (10-second hold) - 0(No drift) 6a. Left Leg: Motor (5-second hold - always test supine) - 0(No drift) 6b. Right Leg: Motor (5-second hold - always test supine) - 0(No drift) 7. Limb Ataxia (finger/nose \T\ heel/collado - test with eyes open) - 0(Absent) 8. Sensory Loss (pinprick arms/legs/face) - 0(Normal) 9. Best Language: Aphasia (description/naming/reading) - 0(No aphasia) Initials: jasmeet Signatures: William Espinosa MD MD cha Rivera, Charlene, Reg Reg mr Tova Santa, RN RN iw Julia Pollock RN RN kc6 Татьяна Marti RN RN db Corrections: (The following items were deleted from the chart) 10:27 10:24 BP 113 / 73; Pulse 100bpm; Resp 16bpm; Pulse Ox 100% RA; Temp 97.6F; 49.9 iw kg; Pain 0/10, Adult; iw 12:09 11:45 Reassessment: PATIENT PROVIDED CHIPS db db
[2023-08-25 11:26] LABS: Urine Bilirubin Negative (Negative); Urine Blood Negative (Negative); Urine Clarity Clear (Clear); Urine Color Yellow (Yellow); Urine Glucose Negative (Negative); Urine Protein Negative (Negative); Urine Urobilinogen 0.2 mg/dL (0.2-1.0)
[2023-08-25 11:31] LABS: Urine Bacteria None Seen /HPF (<20); Urine RBC <5 /HPF (None Seen)
[2023-08-25 11:38] LABS: Barbiturates NEGATIVE (NEGATIVE); Benzodiazepines POSITIVE (NEGATIVE); Cocaine NEGATIVE (NEGATIVE); METHAMPHETAM NEGATIVE (NEGATIVE); Methadone NEGATIVE (NEGATIVE); Opiates NEGATIVE (NEGATIVE); Phencyclidine NEGATIVE (NEGATIVE); THC Cannibis POSITIVE (NEGATIVE)
[2023-08-25 12:35] VITALS: O2SAT 100
[2023-08-25 12:37] VITALS: TEMP 97.6
[2023-08-25 12:45] VITALS: BP 115/77
--- NOTE | 2023-08-27 15:22 | EKG ---
Test Date: 2023-08-25 Test Time: 10:46:05 Housing Quality Standard Inspector: KENDALL MEASUREMENT RESULTS: Intervals: Rate: 90 MT: 162 QRSD: 104 QT: 380 QTc: 464 [place]: P: 69 MT: 162 QRS: -43 T: 85 INTERPRETIVE STATEMENTS: Normal sinus rhythm Left axis deviation Abnormal ECG Compared to ECG 06/25/2023 20:25:49 Sinus arrhythmia no longer present Electronically Signed On 08-27-23 15:14:00 NUCLEAR MONITORING TECHNICIAN by Ed Haynes
== END 2023-08-25 12:24 | disposition home or self-care (01) ==
LOC: ER 10:18
DX: R53.1 Weakness (principal); F55.8 Abuse of other non-psychoactive substances
CPT/HCPCS: 36415; 80048; 80076; 80143; 80179; 80307; 81001; 82077; 85025; 85610; 85730; 93005; 96360; 96361; 99284; J7030

== ENCOUNTER → 2023-11-13 | Emergency (ER) | payer SELFPAY ==
[~2023-11-13] MED LIST: NA CHLORIDE 0.9% 1,000 ML ONE; NALOXONE HCL 2 MG/2 ML VIAL ONE; POTASSIUM 25 MEQ EFFERV TAB ONE
--- OUTSIDE RECORDS SUMMARY | 2023-11-13 15:40 | XMS REPORT | Continuity of Care Document ---
Author Name Unknown Address [address] [facility] [address] [place] [address] [facility] Address [address] [facility] [place] [address] Care Team Providers Care Cardiology Physician Assistant Name Role Phone KENYA FUENTES Primary Care Physician Unavailab KENYA Mosher Attending Clinician Unavailable DONTA HAYNES Attending Clinician Unavailabdoulaye Haynes MD, Donta Bundy Attending Clinician [phone] CRISTINA AZUL Attending Clinician UnavailKenya Lazcano Attending Clinician [phone] Doctor Unassigned, [place] Attending Clinician U Marilu Bingham LVN Attending Clinician [phone] TRINIDAD ESTRADA Attending Clinician UnavailTrinidad Sandhu DO Attending Clinician [phone] MICHAEL ASHRAF Attending Clinician Unavailable Luci SHAH, Campbell Quesada Attending Clinician [phone] Ayaan Yung DO Attending Clinician [phone] Michael Ashraf DO Attending Clinician [phone] Greerkosta PHD, Kim Alicea Attending Clinician [phone] KIM PATEL Attending Clinician UnavailJAZMYN Spence M.D. Attending Clinician UnavailCHANCE Lima APRN Attending Clinician Un available KENYA FUENTES Admitting Clinician Unavailable CAMPBELL GUERRERO Admitting Clinician Bhumi patel Aga VARGASAyaan Admitting Clinician [phone] Payers Payer Name Policy Type Policy Number Effective Date Expirati on Date Source [facility] OPAL [id number] 2018 00:00:00 Problems Condition Name Condition Details Condition Category Status Onset Date Resolution Date Last Treatment Date Treating Clinician Comments Source Need for hepatitis C screening test Need for hepatitis C screening test Disease Active 10-20 00:00: 00 [facility] Low bone density for age Low bone density for age Disease Active 10-20 00:00: 00 [facility] Encounter to establish care Encounter to establish care Disease Active 2021-09 00:00: 00 [facility] RLS (restless legs syndrome) RLS (restless legs syndrome) Disease Active 2021-09 00:00: 00 [facility] BMI less than 19,adult BMI less than 19,adult Disease Active 2021-09 00:00: 00 [facility] Drug overdose of undetermin ed intent, initial encounter Drug overdose of undetermin ed intent, initial encounter Disease Active 2021-09 00:00: 00 [facility] Bipolar 1 disorder, mixed anxiety-de pression, moderate Bipolar 1 disorder, mixed anxiety-de pression, moderate Disease Recurre nce 2018-02-23 00:00: 00 [facility] Anxiety Anxiety Disease Active 02-23 00:00: 00 [facility] Underweigh t in childhood with BMI < 5th percentile Underweigh t in childhood with BMI < 5th percentile Disease Active 2017-09 00:00: 00 [facility] 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 Disease Active 04-19 00:00: 00 [facility] 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 Disease Active 04-19 00:00: 00 [facility] Nicotine abuse Nicotine abuse Disease Active 01-10 00:00: 00 [facility] Marijuana abuse, continuous Marijuana abuse, continuous Disease Active 2017-0 4-15 00:00: 00 [facility] Attention deficit hyperactiv ity disorder (ADHD) Attention deficit hyperactiv ity disorder (ADHD) Disease Recurre nce 2006-09 1-19 00:00: 00 [facility] Sensory processing difficulty Sensory processing difficulty Problem Active [facility] Academic/e ducational problem Academic/e ducational problem Problem Active [facility] ZANDER (generaliz ed anxiety disorder) ZANDER (generaliz ed anxiety disorder) Problem Active [facility] Marijuana abuse Marijuana abuse Problem Active [facility] Polysubsta nce abuse Polysubsta nce abuse Problem Active [facility] Major depressive disorder with current active episode, unspecifie d depression episode severity, unspecifie d whether recurrent Major depressive disorder with current active episode, unspecifie d depression episode severity, unspecifie d whether recurrent Problem Active [facility] Anxiety disorder, unspecifie d type Anxiety disorder, unspecifie d type Problem Active [facility] Allergies, Adverse Reactions, Alerts Allergy Name Allergy Type Status Severity Reaction(s) Onset Date Inactive Date Treating Clinician Comments Source NO KNOWN ALLERGIE S Drug Class Active [facility] Social History Social Habit Start Date Stop Date Quantity Comments Source Exposure to SARS-CoV-2 (event) 2022-11-18 00:00:00 2022-11-28 11:48:00 Not sure [facility] Alcohol intake 2022-10-20 00:00:00 2022-10-20 00:00:00 Current non-drinker of alcohol (finding) [facility] Tobacco Comment 2022-09-05 00:00:00 2022-09-05 00:00:00 Vapes [facility] Tobacco use and exposure 2022-09-05 00:00:00 2022-09-05 00:00:00 Smokeless tobacco non-user [facility] Cigarettes smoked current (pack per day) - Reported 2022-09-05 00:00:00 2022-09-05 00:00:00 [facility] History of tobacco use 2018-07-08 00:00:00 Cigarette Smoker [facility] Sex Assigned At 2002 00:00:00 2000 00:00:00 [facility] Smoking Status Start Date Stop Date Source Never smoked tobacco (finding) [facility] Smokes tobacco daily 2022-09-05 00:00:00 [facility] Ex-smoker 2022-09-01 00:00:00 2022-09-01 00:00:00 [facility] Medications Ordered Medication Name Filled Medication Name Start Date Stop Date Current Medication? Ordering Clinician Indication Dosage Frequency Signature (SIG) Comments Components Source ondansetron (ZOFRAN) 4 mg tablet 12-02 00:00: 00 12-13 04:59 :00 No [id number] 4mg Take 1 tablet by mouth every 8 (eight) hours as needed for Nausea and Vomiting (N/V) for up to 10 days. [facility] ondansetron (ZOFRAN) 4 mg tablet 12-02 00:00: 00 12-13 04:59 :00 No [id number] 4mg Take 1 tablet by mouth every 8 (eight) hours as needed for Nausea and Vomiting (N/V) for up to 10 days. [facility] OXcarbazepi ne 600 mg tablet 2021-09 14:31: 18 09-05 00:00 :00 No 600mg Take 600 mg by mouth 2 (two) times daily. [facility] OXcarbazepi ne 600 mg tablet 2021-09 14:31: 18 09-05 00:00 :00 No 600mg Take 600 mg by mouth 2 (two) times daily. [facility] LORazepam 1 mg Cp24 2021-09 14:27: 07 09-05 00:00 :00 No 1mg Take 1 mg by mouth 2 (two) times daily. [facility] LORazepam 1 mg Cp24 2021-09 14:27: 07 09-05 00:00 :00 No 1mg Take 1 mg by mouth 2 (two) times daily. [facility] olanzapine (ZYPREXA ORAL) 2021-09 14:26: 27 Yes Take by mouth 2 (two) times daily. Prescribed by [facility] , [place] Apr 2019 [facility] gabapentin 600 mg tablet 2021-09 14:26: 27 Yes 600mg Take 600 mg by mouth in the morning and 600 mg at noon and 600 mg in the evening. [facility] olanzapine (ZYPREXA ORAL) 2021-09 14:26: 27 Yes Take by mouth 2 (two) times daily. Prescribed by [facility] Apr 2019 [facility] gabapentin 600 mg tablet 2021-09 14:26: 27 Yes 600mg Take 600 mg by mouth in the morning and 600 mg at noon and 600 mg in the evening. [facility] olanzapine (ZYPREXA ORAL) 2021-09 14:26: 27 Yes Take by mouth 2 (two) times daily. Prescribed by [facility] Apr 2019 [facility] gabapentin 600 mg tablet 2021-09 14:26: 27 Yes 600mg Take 600 mg by mouth in the morning and 600 mg at noon and 600 mg in the evening. [facility] olanzapine (ZYPREXA ORAL) 2021-09 14:26: 27 Yes Take by mouth 2 (two) times daily. Prescribed by [facility] Apr 2019 [facility] gabapentin 600 mg tablet 2021-09 14:26: 27 Yes 600mg Take 600 mg by mouth in the morning and 600 mg at noon and 600 mg in the evening. [facility] olanzapine (ZYPREXA ORAL) 2021-09 14:26: 27 Yes Take by mouth 2 (two) times daily. Prescribed by [facility] Apr 2019 [facility] gabapentin 600 mg tablet 2021-09 14:26: 27 Yes 600mg Take 600 mg by mouth in the morning and 600 mg at noon and 600 mg in the evening. [facility] olanzapine (ZYPREXA ORAL) 2021-09 14:26: 27 Yes Take by mouth 2 (two) times daily. Prescribed by [facility] Apr 2019 [facility] gabapentin 600 mg tablet 2021-09 14:26: 27 Yes 600mg Take 600 mg by mouth in the morning and 600 mg at noon and 600 mg in the evening. [facility] olanzapine (ZYPREXA ORAL) 2021-09 14:26: 27 Yes Take by mouth 2 (two) times daily. Prescribed by [facility] Apr 2019 [facility] gabapentin 600 mg tablet 2021-09 14:26: 27 Yes 600mg Take 600 mg by mouth in the morning and 600 mg at noon and 600 mg in the evening. [facility] olanzapine (ZYPREXA ORAL) 2021-09 14:26: 27 Yes Take by mouth 2 (two) times daily. Prescribed by [facility] Apr 2019 [facility] gabapentin 600 mg tablet 2021-09 14:26: 27 Yes 600mg Take 600 mg by mouth in the morning and 600 mg at noon and 600 mg in the evening. [facility] olanzapine (ZYPREXA ORAL) 2021-09 14:26: 27 Yes Take by mouth 2 (two) times daily. Prescribed by [facility] Apr 2019 [facility] gabapentin 600 mg tablet 2021-09 14:26: 27 Yes 600mg Take 600 mg by mouth in the morning and 600 mg at noon and 600 mg in the evening. [facility] olanzapine (ZYPREXA ORAL) 2021-09 14:26: 27 Yes Take by mouth 2 (two) times daily. Prescribed by [facility] Apr 2019 [facility] gabapentin 600 mg tablet 2021-09 14:26: 27 Yes 600mg Take 600 mg by mouth in the morning and 600 mg at noon and 600 mg in the evening. [facility] olanzapine (ZYPREXA ORAL) 2021-09 14:26: 27 Yes Take by mouth 2 (two) times daily. Prescribed by [facility] Apr 2019 [facility] gabapentin 600 mg tablet 2021-09 14:26: 27 Yes 600mg Take 600 mg by mouth in the morning and 600 mg at noon and 600 mg in the evening. [facility] olanzapine (ZYPREXA ORAL) 2021-09 14:26: 27 Yes Take by mouth 2 (two) times daily. Prescribed by [facility] Apr 2019 [facility] gabapentin 600 mg tablet 2021-09 14:26: 27 Yes 600mg Take 600 mg by mouth in the morning and 600 mg at noon and 600 mg in the evening. [facility] olanzapine (ZYPREXA ORAL) 2021-09 14:26: 27 Yes Take by mouth 2 (two) times daily. Prescribed by [facility] Apr 2019 [facility] gabapentin 600 mg tablet 2021-09 14:26: 27 Yes 600mg Take 600 mg by mouth in the morning and 600 mg at noon and 600 mg in the evening. [facility] olanzapine (ZYPREXA ORAL) 2021-09 14:26: 27 Yes Take by mouth 2 (two) times daily. Prescribed by [facility] Apr 2019 [facility] gabapentin 600 mg tablet 2021-09 14:26: 27 Yes 600mg Take 600 mg by mouth in the morning and 600 mg at noon and 600 mg in the evening. [facility] olanzapine (ZYPREXA ORAL) 2021-09 14:26: 27 Yes Take by mouth 2 (two) times daily. Prescribed by [facility] Apr 2019 [facility] gabapentin 600 mg tablet 2021-09 14:26: 27 Yes 600mg Take 600 mg by mouth in the morning and 600 mg at noon and 600 mg in the evening. [facility] olanzapine (ZYPREXA ORAL) 2021-09 14:26: 27 Yes Take by mouth 2 (two) times daily. Prescribed by [facility] Apr 2019 [facility] gabapentin 600 mg tablet 2021-09 14:26: 27 Yes 600mg Take 600 mg by mouth in the morning and 600 mg at noon and 600 mg in the evening. [facility] olanzapine (ZYPREXA ORAL) 2021-09 14:26: 27 Yes Take by mouth 2 (two) times daily. Prescribed by [facility] Apr 2019 [facility] gabapentin 600 mg tablet 2021-09 14:26: 27 Yes 600mg Take 600 mg by mouth in the morning and 600 mg at noon and 600 mg in the evening. [facility] olanzapine (ZYPREXA ORAL) 2021-09 14:26: 27 Yes Take by mouth 2 (two) times daily. Prescribed by [facility] Apr 2019 [facility] gabapentin 600 mg tablet 2021-09 14:26: 27 Yes 600mg Take 600 mg by mouth in the morning and 600 mg at noon and 600 mg in the evening. [facility] SERTraline 100 mg tablet 2021-09 14:19: 22 09-05 00:00 :00 No 100mg Take 100 mg by mouth daily. Prescribed by [facility] Apr 2019 [facility] SERTraline 100 mg tablet 2021-09 14:19: 22 09-05 00:00 :00 No 100mg Take 100 mg by mouth daily. Prescribed by [facility] Apr 2019 [facility] nicotine (NICODERM) 21 mg/24 hr patch 1 Patch 2021-09 19:45: 00 Yes 1{patch } 1 Patch, Topical, Administer over 24 Hours, Q24H, First dose on Thu09/02/22 at 1345, Until Discontinu ed, Routine [facility] hydrOXYzine (ATARAX) tablet 10 mg 2021-09 19:30: 00 09-02 18:49 :00 No 10mg 10 mg, Oral, ONCE, 1 dose, On Thu09/02/22 at 1330, Routine [facility] gabapentin 600 mg tablet 2021-09 17:34: 50 Yes 600mg Take 600 mg by mouth in the morning and 600 mg at noon and 600 mg in the evening. [facility] gabapentin 600 mg tablet 2021-09 17:34: 50 Yes 600mg Take 600 mg by mouth in the morning and 600 mg at noon and 600 mg in the evening. [facility] gabapentin 600 mg tablet 2021-09 17:34: 50 Yes 600mg Take 600 mg by mouth in the morning and 600 mg at noon and 600 mg in the evening. [facility] OXcarbazepi ne 600 mg tablet 2021-09 15:34: 48 Yes 600mg Take 600 mg by mouth 2 (two) times daily. [facility] SERTraline 100 mg tablet 2021-09 15:34: 48 Yes 100mg Take 100 mg by mouth daily. Prescribed by [facility] - Apr 2019 [facility] olanzapine (ZYPREXA ORAL) 2021-09 15:34: 48 Yes Take by mouth 2 (two) times daily. Prescribed by [facility] - Apr 2019 [facility] LORazepam 1 mg Cp24 2021-09 15:34: 48 Yes 1mg Take 1 mg by mouth 2 (two) times daily. [facility] OXcarbazepi ne 600 mg tablet 2021-09 15:34: 48 Yes 600mg Take 600 mg by mouth 2 (two) times daily. [facility] SERTraline 100 mg tablet 2021-09 15:34: 48 Yes 100mg Take 100 mg by mouth daily. Prescribed by [facility] Apr 2019 [facility] olanzapine (ZYPREXA ORAL) 2021-09 15:34: 48 Yes Take by mouth 2 (two) times daily. Prescribed by [facility] Apr 2019 [facility] LORazepam 1 mg Cp24 2021-09 15:34: 48 Yes 1mg Take 1 mg by mouth 2 (two) times daily. [facility] OXcarbazepi ne 600 mg tablet 2021-09 15:34: 48 Yes 600mg Take 600 mg by mouth 2 (two) times daily. [facility] SERTraline 100 mg tablet 2021-09 15:34: 48 Yes 100mg Take 100 mg by mouth daily. Prescribed by [facility] Apr 2019 [facility] olanzapine (ZYPREXA ORAL) 2021-09 15:34: 48 Yes Take by mouth 2 (two) times daily. Prescribed by [facility] Apr 2019 [facility] LORazepam 1 mg Cp24 2021-09 15:34: 48 Yes 1mg Take 1 mg by mouth 2 (two) times daily. [facility] OXcarbazepi ne 600 mg tablet 2021-09 15:34: 48 Yes 600mg Take 600 mg by mouth 2 (two) times daily. [facility] SERTraline 100 mg tablet 2021-09 15:34: 48 Yes 100mg Take 100 mg by mouth daily. Prescribed by [facility] Apr 2019 [facility] olanzapine (ZYPREXA ORAL) 2021-09 15:34: 48 Yes Take by mouth 2 (two) times daily. Prescribed by [facility] Apr 2019 [facility] gabapentin 600 mg tablet 2021-09 15:34: 48 Yes 600mg Take 600 mg by mouth in the morning and 600 mg at noon and 600 mg in the evening. [facility] LORazepam 1 mg Cp24 2021-09 15:34: 48 Yes 1mg Take 1 mg by mouth 2 (two) times daily. [facility] LORazepam (ATIVAN) tablet 1 mg 2021-09 15:00: 00 Yes 1mg 1 mg, Oral, QAM, First dose on Thu09/02/22 at 0900, Until Discontinu ed, Routine [facility] OLANZapine (ZyPREXA) tablet 15 mg 2021-09 03:00: 00 Yes 15mg 15 mg, Oral, QHS, First dose on Thu09/01/22 at 2100, Until Discontinu ed, Routine [facility] PARoxetine (PAXIL) tablet 20 mg 2021-09 03:00: 00 Yes 20mg 20 mg, Oral, QHS, First dose on Thu09/01/22 at 2100, Until Discontinu ed, Routine [facility] gabapentin (NEURONTIN) tablet 600 mg 2021-09 02:00: 00 Yes 600mg 600 mg, Oral, TID, First dose on Thu09/01/22 at 2000, Until Discontinu ed, Routine [facility] acetaminoph en (TYLENOL) tablet 325 mg 2021-09 23:49: 00 09-02 00:20 :00 No 325mg 325 mg, Oral, ONCE, 1 dose, On Thu09/01/22 at 1800, Routine [facility] clonazePAM (KLONOPIN) tablet 1 mg 2021-09 16:15: 00 Yes 1mg 1 mg, Oral, Q8H, First dose (after last modificati on) on Thu09/01/22 at 1015, Until Discontinu ed, Routine [facility] ketamine (KETALAR) injection 50 mg 2021-09 23:30: 00 08-31 07:04 :00 No 50mg 50 mg, Slow IV Push, ONCE, 1 dose, On Thu08/31/22 at 1730, Routine [facility] clonazePAM 0.1 mg/mL oral suspension 1 mg 2021-09 20:00: 00 09-01 14:29 :11 No 1mg 1 mg, Oral, TID, First dose on [place] 08/31/22 at 1400, Until Discontinu ed, Routine [facility] midazolam (VERSED) STD 50mg in NaCl 0.9% (NS) 50 mL infusion RTU 2021-09 16:14: 18 09-01 11:18 :51 No 1mg/h 1-10 mg/hr (1-10 mL/hr), IV Infusion, TITRATE, Sedation-R ASS score (0 to -1), Sedation-R ASS score (-2 to -3), If too agitated may use a rass of -3, Starting on [place] 08/31/22 at 1014
In itiate infusion at 1 mg/hr and titrate by 1 mg/hr every 3 minutes to 10 minutes to goal sedation score. Maximum dose = 10 mg/hr.&nbs p; If goal not maintained at maximum allowed dose, contact prescriber .
[facility] enoxaparin (LOVENOX) injection 40 mg 2021-09 15:00: 00 Yes 40mg 40 mg, Subcutaneo us, DAILY, First dose on [place] 08/31/22 at 0900, Until Discontinu ed, Routine [facility] dexMEDEtomi dine 200 mcg in 0.9 % NaCl 50 mL (PRECEDEX) RTU IV infusion 2021-09 14:33: 19 09-02 00:39 :35 No .2ug/kg /h 0.2-1.5 mcg/kg/hr ?61 kg (3.05-22.8 75 mL/hr, rounded to 3.05-22.88 mL/hr), IV Infusion, TITRATE, Sedation-R ASS score (0 to -1), Starting on [place] 08/31/22 at 0833
In itiate infusion at 0.2 mcg/kg/hr and titrate by 0.1 mcg/kg/hr every 30 minutes to goal sedation score. Maximum dose = 1.5 mcg/kg/hr. If goal not maintained at maximum allowed dose, contact prescriber .
[facility] fentaNYL PF (SUBLIMAZE) STD 2,500 mcg in NaCl 0.9% (NS) 250 mL infusion RTU 2021-09 08:03: 47 09-01 11:18 :51 No 25ug/h 25-200 mcg/hr (2.5-20 mL/hr), IV Infusion, TITRATE, CPOT/Pain Scale Goals Determined by Provider, Starting on [place] 08/31/22 at 0203
In itiate infusion at 25 mcg/hr. Titrate by 25 mcg/hr every 1 minute to 15 minutes to identified goal pain and/or sedation scores. Maximum dose = 200 mcg/hr. If goal not maintained at maximum allowed dose, contact prescriber .
[facility] FENTanyl PF (SUBLIMAZE (PF)) injection 50 mcg 2021-09 08:00: 00 08-31 07:14 :00 No 50ug 50 mcg, Slow IV Push, ONCE, 1 dose, On [place] 08/31/22 at 0200, Routine [facility] propofoL IV infusion 2021-09 07:24: 17 08-31 07:09 :53 No 5ug/kg/ min 5-50 mcg/kg/min ?61 kg (1.83-18.3 mL/hr), IV Infusion, TITRATE, Sedation-R ASS score (0 to -1), Starting on [place] 08/31/22 at 0124
In itiate infusion at 5 mcg/kg/min and titrate by 5 mcg/kg/min every 30 seconds to 10 minutes to goal sedation score. Maximum dose = 50 mcg/kg/min . If goal not maintained at maximum allowed dose, contact prescriber . &nbs p;Tubing and unused portions of vials should be discarded after 12 hours.
[facility] lactated ringers IV infusion 1,000 mL 2021-09 07:15: 00 08-31 07:00 :00 No 1000mL at 999 mL/hr, 1,000 mL, Intravenou s, ONCE, 1 dose, On [place] 08/31/22 at 0115, Routine [facility] midazolam (VERSED) STD 50mg in NaCl 0.9% (NS) 50 mL infusion RTU 2021-09 06:26: 10 08-31 16:14 :53 No 1mg/h 1-10 mg/hr (1-10 mL/hr), IV Infusion, TITRATE, Sedation-R ASS score (0 to -1), Starting on 08/31/22 at 0026
In itiate infusion at 1 mg/hr and titrate by 1 mg/hr every 3 minutes to 10 minutes to goal sedation score. Maximum dose = 10 mg/hr.&nbs p; If goal not maintained at maximum allowed dose, contact prescriber .
[facility] gabapentin 300 mg/6 mL (6 mL) solution 2021-09 23:09: 11 08-30 00:00 :00 No Take by mouth 2 (two) times daily. prescribed at [facility] no summer 2018 [facility] PARoxetine 20 mg tablet 2021-09 00:00: 00 Yes 20mg Take 20 mg by mouth in the morning. [facility] LORazepam 1 mg tablet 2021-09 00:00: 00 Yes 1mg Take 1 mg by mouth in the morning. [facility] PARoxetine 20 mg tablet 2021-09 00:00: 00 Yes 20mg Take 20 mg by mouth in the morning. [facility] LORazepam 1 mg tablet 2021-09 00:00: 00 Yes 1mg Take 1 mg by mouth in the morning. [facility] PARoxetine 20 mg tablet 2021-09 00:00: 00 Yes 20mg Take 20 mg by mouth in the morning. [facility] LORazepam 1 mg tablet 2021-09 00:00: 00 Yes 1mg Take 1 mg by mouth in the morning. [facility] PARoxetine 20 mg tablet 2021-09 00:00: 00 Yes 20mg Take 20 mg by mouth in the morning. [facility] LORazepam 1 mg tablet 2021-09 00:00: 00 Yes 1mg Take 1 mg by mouth in the morning. [facility] PARoxetine 20 mg tablet 2021-09 00:00: 00 Yes 20mg Take 20 mg by mouth in the morning. [facility] LORazepam 1 mg tablet 2021-09 00:00: 00 Yes 1mg Take 1 mg by mouth in the morning. [facility] PARoxetine 20 mg tablet 2021-09 00:00: 00 Yes 20mg Take 20 mg by mouth in the morning. [facility] LORazepam 1 mg tablet 2021-09 00:00: 00 Yes 1mg Take 1 mg by mouth in the morning. [facility] PARoxetine 20 mg tablet 2021-09 00:00: 00 Yes 20mg Take 20 mg by mouth in the morning. [facility] LORazepam 1 mg tablet 2021-09 00:00: 00 Yes 1mg Take 1 mg by mouth in the morning. [facility] PARoxetine 20 mg tablet 2021-09 00:00: 00 Yes 20mg Take 20 mg by mouth in the morning. [facility] LORazepam 1 mg tablet 2021-09 00:00: 00 Yes 1mg Take 1 mg by mouth in the morning. [facility] PARoxetine 20 mg tablet 2021-09 00:00: 00 Yes 20mg Take 20 mg by mouth in the morning. [facility] LORazepam 1 mg tablet 2021-09 00:00: 00 Yes 1mg Take 1 mg by mouth in the morning. [facility] PARoxetine 20 mg tablet 2021-09 00:00: 00 Yes 20mg Take 20 mg by mouth in the morning. [facility] LORazepam 1 mg tablet 2021-09 00:00: 00 Yes 1mg Take 1 mg by mouth in the morning. [facility] PARoxetine 20 mg tablet 2021-09 00:00: 00 Yes 20mg Take 20 mg by mouth in the morning. [facility] LORazepam 1 mg tablet 2021-09 00:00: 00 Yes 1mg Take 1 mg by mouth in the morning. [facility] PARoxetine 20 mg tablet 2021-09 00:00: 00 Yes 20mg Take 20 mg by mouth in the morning. [facility] LORazepam 1 mg tablet 2021-09 00:00: 00 Yes 1mg Take 1 mg by mouth in the morning. [facility] PARoxetine 20 mg tablet 2021-09 00:00: 00 Yes 20mg Take 20 mg by mouth in the morning. [facility] LORazepam 1 mg tablet 2021-09 00:00: 00 Yes 1mg Take 1 mg by mouth in the morning. [facility] PARoxetine 20 mg tablet 2021-09 00:00: 00 Yes 20mg Take 20 mg by mouth in the morning. [facility] LORazepam 1 mg tablet 2021-09 00:00: 00 Yes 1mg Take 1 mg by mouth in the morning. [facility] PARoxetine 20 mg tablet 2021-09 00:00: 00 Yes 20mg Take 20 mg by mouth in the morning. [facility] LORazepam 1 mg tablet 2021-09 00:00: 00 Yes 1mg Take 1 mg by mouth in the morning. [facility] PARoxetine 20 mg tablet 2021-09 00:00: 00 Yes 20mg Take 20 mg by mouth in the morning. [facility] LORazepam 1 mg tablet 2021-09 00:00: 00 Yes 1mg Take 1 mg by mouth in the morning. [facility] PARoxetine 20 mg tablet 2021-09 00:00: 00 Yes 20mg Take 20 mg by mouth in the morning. [facility] LORazepam 1 mg tablet 2021-09 00:00: 00 Yes 1mg Take 1 mg by mouth in the morning. [facility] PARoxetine 20 mg tablet 2021-09 00:00: 00 Yes 20mg Take 20 mg by mouth in the morning. [facility] LORazepam 1 mg tablet 2021-09 00:00: 00 Yes 1mg Take 1 mg by mouth in the morning. [facility] SERTraline 100 mg tablet 10-22 18:52: 12 Yes 100mg Take 100 mg by mouth daily. Prescribed by [facility] Apr 2019 [facility] SERTraline 100 mg tablet 10-22 18:52: 12 Yes 100mg Take 100 mg by mouth daily. Prescribed by [facility] Apr 2019 [facility] SERTraline 100 mg tablet 10-22 18:52: 12 Yes 100mg Take 100 mg by mouth daily. Prescribed by [facility] Apr 2019 [facility] olanzapine (ZYPREXA ORAL) 10-22 18:52: 09 Yes Take by mouth 2 (two) times daily. Prescribed by [facility] Apr 2019 [facility] olanzapine (ZYPREXA ORAL) 10-22 18:52: 09 Yes Take by mouth 2 (two) times daily. Prescribed by [facility] Apr 2019 [facility] olanzapine (ZYPREXA ORAL) 10-22 18:52: 09 Yes Take by mouth 2 (two) times daily. Prescribed by [facility] Apr 2019 [facility] gabapentin 300 mg/6 mL (6 mL) solution 10-22 18:52: 07 Yes Take by mouth 2 (two) times daily. prescribed at [facility] summer [facility] gabapentin 300 mg/6 mL (6 mL) solution 10-22 18:52: 07 Yes Take by mouth 2 (two) times daily. prescribed at [facility] summer [facility] gabapentin 300 mg/6 mL (6 mL) solution 10-22 18:52: 07 Yes Take by mouth 2 (two) times daily. prescribed at [facility] summer [facility] OXcarbazepi ne (TRILEPTAL) 600 mg tablet 10-22 18:52: 06 Yes 600mg Take 600 mg by mouth 2 (two) times daily. [facility] OXcarbazepi ne (TRILEPTAL) 600 mg tablet 10-22 18:52: 06 Yes 600mg Take 600 mg by mouth 2 (two) times daily. [facility] OXcarbazepi ne (TRILEPTAL) 600 mg tablet 10-22 18:52: 06 Yes 600mg Take 600 mg by mouth 2 (two) times daily. [facility] Sertraline HCl - 50 MG Oral Tablet Sertraline HCl - 50 MG Oral Tablet 10-20 00:00: 00 Yes JAZMYN TEDDY M.D. Take 25 mg po daily x 15 days and then increase it to 50 mg po daily [facility] Sertraline HCl - 100 MG Oral Tablet Sertraline HCl - 100 MG Oral Tablet 2018-09 00:00: 00 Yes JAZMYN TEDDY M.D. 1 QD TAKE ONE (1) TABLET(S) BY MOUTH ONCE A DAY. [facility] OLANZapine 10 MG Oral Tablet OLANZapine 10 MG Oral Tablet 2018-09 00:00: 00 Yes JAZMYN TEDDY M.D. 1 TAKE 1 TABLET AT BEDTIME. [facility] Gabapentin 300 MG Oral Capsule Gabapentin 300 MG Oral Capsule 2018-09 00:00: 00 Yes JAZMYN TEDDY M.D. Q0.3333D TAKE 1 CAPSULE 3 TIMES DAILY. [facility] OXcarbazepi ne 300 MG Oral Tablet OXcarbazepi ne 300 MG Oral Tablet 06-13 00:00: 00 Yes JAZMYN TEDDY M.D. Q0.5D TAKE ONE (1) TABLET(S) BY MOUTH TWICE A DAY. [facility] busPIRone 15 mg tablet 03-03 00:00: 00 Yes [id number] 15mg Take 1 tablet by mouth 2 (two) times daily. [facility] DULoxetine 60 mg capsule 03-01 00:00: 00 Yes [id number] 60mg Take 1 capsule by mouth daily. [facility] DULoxetine 30 mg capsule 03-01 00:00: 00 Yes [id number] 30mg Take 1 capsule by mouth daily. [facility] OXcarbazepi ne (TRILEPTAL) 600 mg tablet 02-23 19:48: 44 Yes 600mg Take 600 mg by mouth 2 (two) times daily. [facility] traZODONE 50 mg tablet 02-23 00:00: 00 Yes [id number] 25mg Take 0.5 tablets by mouth 2 (two) times daily. [facility] Multi-Vitam in TABS Multi-Vitam in TABS Yes M.A. [facility] Vital Signs Vital Name Observation Time Observation Value Comments S ource Systolic blood pressure 2022-11-28 17:50:00 104 mm[Hg] [facility] Diastolic blood pressure 2022-11-28 17:50:00 52 mm[Hg] [facility] Heart rate 2022-11-28 17:50:00 106 /min [facility] Body height 2022-11-28 17:50:00 172.7 cm [facility] Body weight 2022-11-28 17:50:00 62.551 kg [facility] BMI 2022-11-28 17:50:00 20.97 kg/m2 [facility] Oxygen saturation in Arterial blood by Pulse oximetry 2022-11-28 17:50:00 93 /min [facility] Systolic blood pressure 2022-10-20 14:09:00 108 mm[Hg] [facility] Diastolic blood pressure 2022-10-20 14:09:00 65 mm[Hg] [facility] Heart rate 2022-10-20 14:09:00 95 /min [facility] Body temperature 2022-10-20 14:09:00 37.06 Jeana [facility] Body height 2022-10-20 14:09:00 172.7 cm [facility] Body weight 2022-10-20 14:09:00 58.968 kg [facility] BMI 2022-10-20 14:09:00 19.77 kg/m2 [facility] Oxygen saturation in Arterial blood by Pulse oximetry 2022-10-20 14:09:00 98 /min [facility] Systolic blood pressure 2022-09-05 20:22:00 101 mm[Hg] [facility] Diastolic blood pressure 2022-09-05 20:22:00 64 mm[Hg] [facility] Heart rate 2022-09-05 20:22:00 62 /min [facility] Body temperature 2022-09-05 20:22:00 36.33 Jeana [facility] Body height 2022-09-05 20:22:00 172.7 cm [facility] Body weight 2022-09-05 20:22:00 56.337 kg [facility] BMI 2022-09-05 20:22:00 18.88 kg/m2 [facility] Oxygen saturation in Arterial blood by Pulse oximetry 2022-09-05 20:22:00 97 /min [facility] Systolic blood pressure 2022-09-03 05:40:00 110 mm[Hg] [facility] Diastolic blood pressure 2022-09-03 05:40:00 81 mm[Hg] [facility] Heart rate 2022-09-03 05:40:00 64 /min [facility] Body temperature 2022-09-03 05:40:00 37.22 Jeana [facility] Respiratory rate 2022-09-03 05:40:00 18 /min [facility] Body height 2022-09-03 05:40:00 172.7 cm [facility] Body weight 2022-09-03 05:40:00 57.153 kg [facility] BMI 2022-09-03 05:40:00 19.16 kg/m2 [facility] Oxygen saturation in Arterial blood by Pulse oximetry 2022-09-03 05:40:00 100 /min [facility] Systolic blood pressure 2022-09-02 17:17:00 114 mm[Hg] [facility] Diastolic blood pressure 2022-09-02 17:17:00 75 mm[Hg] [facility] Heart rate 2022-09-02 17:17:00 81 /min [facility] Body temperature 2022-09-02 17:17:00 36.61 Jeana [facility] Respiratory rate 2022-09-02 17:17:00 18 /min [facility] Oxygen saturation in Arterial blood by Pulse oximetry 2022-09-02 17:17:00 99 /min [facility] Body weight 2022-09-01 19:40:00 61 kg [facility] BMI 2022-09-01 19:40:00 20.45 kg/m2 [facility] Body height 2022-09-01 19:36:00 172.7 cm [facility] BP Systolic 2019-10-20 12:54:00 118 mm[Hg] Location: RUE; Position: Sitting [facility] BP Diastolic 2019-10-20 12:54:00 53 mm[Hg] Location: RUE; Position: Sitting [facility] Height 2019-10-20 12:54:00 169 cm [facility] Weight 2019-10-20 12:54:00 125 [lb_av] [facility] Body Mass Index Calculated 2019-10-20 12:54:00 19.85 kg/m2 [facility] Heart Rate 2019-10-20 12:54:00 100 /min [facility] BP Systolic 2019-07-20 13:06:00 93 mm[Hg] Location: LUE; Position: Sitting [facility] BP Diastolic 2019-07-20 13:06:00 58 mm[Hg] Location: LUE; Position: Sitting [facility] Height 2019-07-20 13:06:00 66 [in_us] [facility] Weight 2019-07-20 13:06:00 132.375 [lb_av] [facility] Body Mass Index Calculated 2019-07-20 13:06:00 21.37 kg/m2 [facility] Temperature 2019-07-20 13:06:00 98.5 [degF] Method: Oral [facility] Heart Rate 2019-07-20 13:06:00 79 /min Location: L Brachial Artery; [facility] BP Systolic 2019-02-24 10:04:00 100 mm[Hg] Location: LUE; Position: Sitting [facility] BP Diastolic 2019-02-24 10:04:00 61 mm[Hg] Location: LUE; Position: Sitting [facility] Height 2019-02-24 10:04:00 167.5 cm [facility] Weight 2019-02-24 10:04:00 101 [lb_av] [facility] Body Mass Index Calculated 2019-02-24 10:04:00 16.33 kg/m2 [facility] Temperature 2019-02-24 10:04:00 98.4 [degF] Method: Tympanic [facility] Heart Rate 2019-02-24 10:04:00 62 /min Quality: Normal [facility] Respiration Rate 2019-02-24 10:04:00 18 /min Quality: Normal [facility] O2 SAT 2019-02-24 10:04:00 100 % Source: RA [facility] BP Systolic 2019-02-07 10:53:00 103 mm[Hg] [facility] BP Diastolic 2019-02-07 10:53:00 63 mm[Hg] [facility] Height 2019-02-07 10:53:00 167.5 cm [facility] Weight 2019-02-07 10:53:00 44.8 kg [facility] Body Mass Index Calculated 2019-02-07 10:53:00 15.97 kg/m2 [facility] Heart Rate 2019-02-07 10:53:00 63 /min [facility] Temperature 2019-02-07 10:53:00 98 [degF] [facility] Procedures Procedure Date / Time Performed Performing Clinician Source [facility] PATIENT FINANCIAL POLICY 2022-11-28 17:49:34 Doctor Unassigned, [place] [facility] EXTERNAL PROVIDER RECORDS 2022-11-19 06:01:00 Doctor Unassigned, For[place] [facility] DEXA AXIAL (HIP AND SPINE) 2022-09-17 19:58:00 Kenya Fuentes [facility] EXTERNAL PROVIDER RECORDS 2022-09-16 06:01:00 Doctor Unassigned, [place] [facility] ASSIGNMENT OF BENEFITS 2022-09-05 19:47:49 Docto r Unassigned, [place] [facility] COMP. METABOLIC PANEL ([id number]) 2022-09-01 10:44:00 Marilyn Mitchell [facility] CBC WITH DIFF 2022-09-01 10:44:00 Nati Mitchell [employer] [facility] XR CHEST 1 VW 2022-09-01 10:15:00 Johann Cormier [facility] CREATINE KINASE 2022-08-31 09:35:00 Dolly Beasley [facility] MAGNESIUM 2022-08-31 09:35:00 Jael Coppola [facility] TROPONIN I 2022-08-31 09:35:00 Jael Coppola [facility] COMP. METABOLIC PANEL ([id number]) 2022-08-31 09:35:00 Jael Coppola [facility] SALICYLATE 2022-08-31 09:35:00 Jael Coppola [facility] ETHANOL 2022-08-31 09:35:00 Jael Coppola [facility] CBC WITH DIFF 2022-08-31 09:35:00 Jael Coppola [facility] URINE DRUG (IMMUNOASSAY) - COMPREHENSIVE DRUG SCREEN 2022-08-31 09:07:00 Jael Coppola [facility] URINE DRUG (LCMSMS) - COMPREHENSIVE DRUG PANEL 2022-08-31 09:07:00 Jael Coppola [facility] AC PANEL 20 + LACTIC ACID 2022-08-31 09:01:00 Jael Coppola [facility] XR CHEST 1 VW 2022-08-31 05:44:00 Jael Coppola [facility] XR KUB 2022-08-31 05:44:00 Jael Coppola [facility] AUTHORIZATION FOR RELEASE OF PHI 2020-08-21 06:01:00 Doctor Unassigned, [place] [facility] [[facility]] CBC (INCLUDES DIFF/PLT) 2019-10-20 00:00:00 [facility] [QL] CMP W/EGFR 2019-10-20 00:00:00 [facility] [[facility]] LIPID PANEL 2019-10-20 00:00:00 [facility] [QL] TSH, 3RD GENERATION 2019-10-20 00:00:00 [facility] [QH] DRUG SCREEN,COMPREHENSIVE (URINE) 2019-07-20 00:00:00 [facility] [Q] DRUG SCREEN,COMPREHENSIVE (URINE) 2019-02-24 00:00:00 [facility] Encounters Start Date/Time End Date/Time Encounter Type Admission Type Attending Clinicians Care Facility Care Department Encounter ID Source 2023-04-24 11:00:00 2023-04-24 11:00:00 Outpatient DONTA CUEVAS [facility] [id number] [facility] 2022-12-30 00:00:00 2022-12-30 00:00:00 Telephone Donta Haynes [facility] 1.840.114 350.1.13.10 4.2.7.2.686 [id number] [facility] 2022-12-03 14:00:00 2022-12-03 14:00:00 Outpatient R ADAMA KENYA [facility] [id number] [facility] 2022-12-02 00:00:00 2022-12-02 00:00:00 Telephone Chloeradha [facility] 1.840.114 350.1.13.10 4.2.7.2.686 [id number] [facility] 2022-11-28 12:00:00 2022-11-28 13:03:08 Outpatient R DONTA HAYNES [facility] [id number] [facility] 2022-11-28 12:00:00 2022-11-28 13:03:08 Office Visit Delvis Haynesin [facility] 1.840.114 350.1.13.10 4.2.7.2.686 [id number] [facility] 2022-11-28 00:00:00 2022-11-28 00:00:00 Orders Only Doctor Unassigned, [place] [facility] 1.840.114 350.1.13.10 4.2.7.2.686 [id number] [facility] 2022-11-19 00:00:00 2022-11-19 00:00:00 Orders Only Doctor Unassigned, [place] [facility] 1.2840.114 350.1.13.10 4.2.7.2.686 [id number] [facility] 2022-10-20 08:00:00 2022-10-20 08:45:36 Outpatient R KENYA FUENTES [facility] [id number] [facility] 2022-10-20 08:00:00 2022-10-20 08:45:36 Office Visit Kenya Fuentes [facility] 1.84.114 350.1.13.10 4.2.7.2.686 [id number] [facility] 2022-09-23 00:00:00 2022-09-23 00:00:00 Telephone Kenya Fuentes [facility] 1.84.114 350.1.13.10 4.2.7.2.686 [id number] [facility] 2022-09-17 13:39:39 2022-09-17 23:59:00 Outpatient R KENYA FUENTES [facility] [id number] [facility] 2022-09-17 13:39:39 2022-09-17 23:59:00 Hospital Encounter Kenay Fuentes [facility] 1.84.114 350.1.13.10 4.2.7.2.686 [id number] [facility] 2022-09-16 00:00:00 2022-09-16 00:00:00 Orders Only Doctor Unassigned, [place] [facility] 1.114 350.1.13.10 4.2.7.2.686 [id number] [facility] 2022-09-05 14:00:00 2022-09-05 14:51:04 Outpatient R KENYA FUENTES [facility] [id number] [facility] 2022-09-05 14:00:00 2022-09-05 14:51:04 Office Visit Kenya Fuentes [facility] 1.84.114 350.1.13.10 4.2.7.2.686 [id number] [facility] 2022-09-05 00:00:00 2022-09-05 00:00:00 Orders Only Doctor Unassigned, [place] [facility] 1.2.840.114 350.1.13.10 4.2.7.2.686 [id number] [facility] 2022-09-03 00:00:00 2022-09-03 00:00:00 Transition of Care Marilu Steiner 1.2.840.114 350.1.13.10 4.2.7.2.686 [id number] [facility] 2022-09-02 23:43:00 2022-09-02 23:56:00 Emergency X TRINIDAD ESTRADA [facility] ERT [id number] [facility] 2022-09-02 23:43:00 2022-09-02 23:56:00 Emergency Trinidad Estrada [facility] 1.2840.114 350.1.13.10 4.2.7.2.686 [id number] [facility] 2022-08-30 22:42:00 2022-09-02 15:34:00 Inpatient X MICHAEL ASHRAF [facility] [id number] [facility] 2022-08-30 22:42:00 2022-09-02 15:34:00 Hospital Encounter Campbell Guerrero Joseph Sweet, Patrick [facility] 1.2840.114 350.1.13.10 4.2.7.2.686 [id number] [facility] 2020-08-21 00:00:00 2020-08-21 00:00:00 Orders Only Doctor Unassigned, [place] [facility] 1.2.840.114 350.1.13.10 4.2.7.2.686 [id number] 2020-08-21 00:00:00 2020-08-21 00:00:00 Orders Only Doctor Unassigned, [place] [facility] 1.2.840.114 350.1.13.10 4.2.7.2.686 [id number] [facility] 2019-12-08 13:05:19 2019-12-08 14:05:19 Office Visit [facility] 1.2.840.114 350.1.13.10 4.2.7.2.686 [id number] 2019-12-08 13:05:19 2019-12-08 14:05:19 Office Visit [facility] 1.2.840.114 350.1.13.10 4.2.7.2.686 [id number] [facility] 2019-12-08 13:15:00 2019-12-08 13:15:00 Outpatient R SVETLANALINHKosta [facility] [id number] [facility] 2019-10-20 13:00:00 2019-10-20 13:00:00 Appointdena palencia; JAZMYN ESPINAL M.D. MEMON, SABA, M.D. [facility] Mult[facility]pecia [facility] [id number] [facility] 2019-07-20 13:00:00 2019-07-20 13:00:00 AppointJAZMYN Jenkins M.D. MEMON, SABA, M.D. [facility] Psychiatry Outpatient Clinic - [facility] [id number] [facility] 2019-06-08 00:00:00 2019-06-08 00:00:00 Telephone Ox[facility] 1.2.840.114 350.1.13.10 4.2.7.2.686 [id number] [facility] 2019-02-24 10:00:00 2019-02-24 10:00:00 AppointJAZMYN Jenkins M.D. MEMON, SABA, M.D. [facility] [id number] [facility] 2019-02-07 10:20:00 2019-02-07 10:20:00 CHANCE Smith APRN WILLIAMSON, TIFFINY, APRN [facility] [id number] [facility] Results Test Description Test Time Test Comments Results Result Co mments Source [facility] WITH [id number] 11:03:17* Test Item Value Reference Range Interpretation Comme nts WBC (test code = 6690-2) See_Comment [Automated messa ge] The system which generated this result transmitted reference range: 4.20 - 10.70 10*3/?L. The reference range was not used to interpret this result as normal/abnormal. RBC (test code = 789-8) See_Comment L [Automated messa ge] The system which generated this result transmitted reference range: 4.26 - 5.52 10*6/?L. The reference range was not used to interpret this result as normal/abnormal. HGB (test code = 718-7) 10.8 g/dL 12.2-16.4 L HCT (test code = 4544-3) 30.6 % 38.4-49.3 L MCV (test code = 787-2) 86.9 fL 81.7-95.6 MCH (test code = 785-6) 30.7 pg 26.1-32.7 MCHC (test code = 786-4) 35.3 g/dL 31.2-35.0 H RDW-SD (test code = 01908-6) 41.7 fL 38.5-51.6 RDW-CV (test code = 788-0) 13.2 % 12.1-15.4 PLT (test code = 777-3) See_Comment [Automated messa ge] The system which generated this result transmitted reference range: 150 - 328 10*3/?L. The reference range was not used to interpret this result as normal/abnormal. MPV (test code = 82105-2) 11.9 fL 9.8-13.0 NRBC/100 WBC (test code = 9099255247) See_Comment [Automated me ssage] The system which generated this result transmitted reference range: 0.0 - 10.0 /100 WBCs. The reference range was not used to interpret this result as normal/abnormal. NRBC x10^3 (test code = 3328472020) See_Comment [Automated messa ge] The system which generated this result transmitted reference range: 10*3/?L. The reference range was not used to interpret this result as normal/abnormal. GRAN MAT (NEUT) % (test code = 770-8) 62.3 % IMM GRAN % (test code = 7542110069) 0.20 % LYMPH % (test code = 736-9) 25.7 % MONO % (test code = 5905-5) 8.0 % EOS % (test code = 713-8) 3.4 % BASO % (test code = 706-2) 0.4 % GRAN MAT x10^3(ANC) (test code = 8196361832) 5.01 10*3/uL 1.99-6.95 IMM GRAN x10^3 (test code = 4205667556) 0.00-0.06 LYMPH x10^3 (test code = 731-0) 2.07 10*3/uL 1.09-3.23 MONO x10^3 (test code = 742-7) 0.64 10*3/uL 0.36-1.02 EOS x10^3 (test code = 711-2) 0.27 10*3/uL 0.06-0.53 BASO x10^3 (test code = 704-7) 0.03 10*3/uL 0.01-0.09 Lab Interpretation (test code = 70135-3) [id number] 17:58:42* Test Item Value Reference Range Interpretation Comme nts CK (test code = 5735737214) 180 U/L 33-194 Lab Interpretation (test cod e = 03907-2) [facility] [id number] 11:09:00* Test Item Value Reference Range Interpretation Comments TROPONIN I (test code = 0414223529) 0.001 ng/mL See_Comment [Automated message] The system which generated this result transmitted reference range: <=0.034. The reference range was not used to interpret this result as normal/abnormal. KACI (test code = KACI) Reference (Normal) Range (defined by the 99th percentile reference [...] to patient's use of biotin. Lab Interpretation (test code = 49976-7) Normal [facility]2022-[facility]-04 10:59:14 SALICYLATE<10mg/L111/01/2021 4:59 AM [facility]ORATORY SERVICESTherapeutic Range: ? Analgesic and Antipyretic Use ? 20-100 mg/L ? ? Anti- Inflammatory Use ? 100-250 mg/LToxic Range: ? Greater than 300 mg/[facility]Un[facility]OL2022-12-04 10:59:14ALCOHOL<10mg/dL08/31/2022 4:59 AM CSTUTMB LABORATORY SERVICESToxic Greater than or equal to 80 mg/dL. NOTE: Whole blood values are approximately 10% to 15% lower than serum and plasma.[facility] [id number] 10:59:09* Test Item Value Reference Range Interpretation Comme nts ACETAMINOP (test code = 7905854524) 10.0-30.0 L KACI (test code = KACI) Toxic: Greater mamie n 200 ug/mL @ 4 hour post ingestion or greater than 50 ug/mL @ 12 hour post ingestion Lab Interpretation (test code = 32931-3) Abnormal [facility]2022-12-04 10:58:19* Test Item Value Reference Range Interpretation Comme nts MAGNESIUM (test code = 5782124474) 1.8 mg/dL 1.7-2.4 Lab Interpretation (test cod e = 42201-3) [facility] (64517)2022-08-31 10:58:18* Test Item Value Reference Range Interpretation Comme nts NA (test code = 7635602743) 141 mmol/L 135-145 K (test code = 8893320570) 4.0 mmol/L 3.5-5.0 CL (test code = 5132477170) 110 mmol/L 98-108 H CO2 TOTAL (test code = 4469213756) 25 mmol/L 23-31 AGAP (test code = 4310499047) 2-16 BUN (test code = 2685168333) 5 mg/dL 7-23 L GLUCOSE (test code = 0811710524) 80 mg/dL 70-110 CREATININE (test code = 5730094868) 0.71 mg/dL 0.60-1.25 TOTAL BILI (test code = 7857615283) 0.5 mg/dL 0.1-1.1 CALCIUM (test code = 9402972802) 7.7 mg/dL 8.6-10.6 L T PROTEIN (test code = 7769707991) 5.2 g/dL 6.3-8.2 L ALBUMIN (test code = 5923317108) 3.3 g/dL 3.5-5.0 L ALK PHOS (test code = 7113344139) 71 U/L 34-122 ALTv (test code = 1742-6) 16 U/L 5-50 AST(SGOT) (test code = 6459186634) 23 U/L 13-40 eGFR (test code = 1761961471) mL/min/1.73m2 KACI (test code = KACI) Association of [...] abnormalities in imaging tests). Lab Interpretation (test code = 78498-3) Abnormal [facility] WITH [id number] 09:52:32* Test Item Value Reference Range Interpretation Comme nts WBC (test code = 6690-2) See_Comment H [Automated message] The system which generated this result transmitted reference range: 4.20 - 10.70 10*3/?L. The reference range was not used to interpret this result as normal/abnormal. RBC (test code = 789-8) See_Comment L [Automated message] The system which generated this result transmitted reference range: 4.26 - 5.52 10*6/?L. The reference range was not used to interpret this result as normal/abnormal. HGB (test code = 718-7) 11.6 g/dL 12.2-16.4 L HCT (test code = 4544-3) 34.3 % 38.4-49.3 L MCV (test code = 787-2) 86.8 fL 81.7-95.6 MCH (test code = 785-6) 29.4 pg 26.1-32.7 MCHC (test code = 786-4) 33.8 g/dL 31.2-35.0 RDW-SD (test code = 35044-0) 41.1 fL 38.5-51.6 RDW-CV (test code = 788-0) 12.9 % 12.1-15.4 PLT (test code = 777-3) See_Comment [Automated message] The system which generated this result transmitted reference range: 150 - 328 10*3/?L. The reference range was not used to interpret this result as normal/abnormal. MPV (test code = 10859-7) 11.1 fL 9.8-13.0 NRBC/100 WBC (test code = 2312875162) See_Comment [Automated message] The system which generated this result transmitted reference range: 0.0 - 10.0 /100 WBCs. The reference range was not used to interpret this result as normal/abnormal. NRBC x10^3 (test code = 1724123062) See_Comment [Automated message] The system which generated this result transmitted reference range: 10*3/?L. The reference range was not used to interpret this result as normal/abnormal. GRAN MAT (NEUT) % (test code = 770-8) 90.1 % IMM GRAN % (test code = 6640990607) 0.40 % LYMPH % (test code = 736-9) 5.4 % MONO % (test code = 5905-5) 3.8 % EOS % (test code = 713-8) 0.1 % BASO % (test code = 706-2) 0.2 % GRAN MAT x10^3(ANC) (test code = 0943229846) 14.75 10*3/uL 1.99-6.95 H IMM GRAN x10^3 (test code = 6545916754) 0.06 10*3/uL 0.00-0.06 LYMPH x10^3 (test code = 731-0) 0.88 10*3/uL 1.09-3.23 L MONO x10^3 (test code = 742-7) 0.62 10*3/uL 0.36-1.02 EOS x10^3 (test code = 711-2) 0.06-0.53 L BASO x10^3 (test code = 704-7) 0.03 10*3/uL 0.01-0.09 Lab Interpretation (test code = 93514-1) [facility] L[facility] [id number] 09:16:12* Test Item Value Reference Range Interpretation Comme nts PH (test code = 2) 7.35-7.45 PCO2 (test code = 3982133948) See_Comment [Automated messa ge] The system which generated this result transmitted reference range: 35 - 45 mmHg. The reference range was not used to interpret this result as normal/abnormal. PO2 (test code = 0149166056) See_Comment H [Automated messa ge] The system which generated this result transmitted reference range: 80 - 100 mmHg. The reference range was not used to interpret this result as normal/abnormal. HCO3 (test code = 6544644662) See_Comment L [Automated messa ge] The system which generated this result transmitted reference range: 22 - 26 mEq/L. The reference range was not used to interpret this result as normal/abnormal. BE (test code = 8575558191) See_Comment L [Automated messa ge] The system which generated this result transmitted reference range: -3.0 - 3.0 mEq/L. The reference range was not used to interpret this result as normal/abnormal. THB (test code = 6173836197) 13.2 g/dL 13.5-18.0 L %O2HB (test code = 0897290614) 98.8 % 94.0-99.0 %COHB ART (test code = 1308040834) 0.3 % 0.0-1.5 %METHB ART (test code = 6189265292) 0.2 % 0.4-1.5 L VOL%O2 ART (test code = 0024076022) 18.8 % 15.0-23.0 NA (test code = 2039700239) 139 mmol/L 135-145 K+ (test code = 5205857666) 3.9 mmol/L 3.5-5.0 AC CA IONZ (test code = 5567705398) 4.60 mg/dL 4.50-5.30 GLUCOSE (test code = 6410908670) 88 mg/dL 70-110 LACTIC ACID (test code = 0515019837) 1.04 mmol/L 0.50-2.20 Lab Interpretation (test code = 21367-3) Abnormal [facility][H] Drug Screen Urine (9 Drugs)2019-07-20 15:46:01* Test Item Value Reference Range Interpretation Comme nts U Amph Scr (test code = 3349-8) Negative Negative Urine Barbiturate Screen (test code = 3377-9) Negative Negative Urine Benzodiazepine Screen (test code = 3390-2) Negative Negative Urine Cannabinoid Screen; Abnormal (test code = 3427-2) Positive Negative A Urine Cocaine Screen (test code = 3397-7) Negative Negative Urine Methadone Screen (test code = 3773-9) Negative Negative Urine Opiate Screen (test code = 3879-4) Negative Negative Urine Phencyclidine Screen (test code = 3936-2) Negative Negative Urine Propoxyphene Screen (test code = 52544-5) Negative Negative Urine Drug Screen Note (test code = Urine Drug Screen Note) See Note Drugs reported a s positive have not been confirmed by a secondmethod and should be used for medical purposes only. To orderconfirmation, contact laboratory.note: Below are cut-off concentrations for all urine drugs ofabuse performed in the laboratory. Some drugs listed in the tablemay not be included in this panel.Description Cut-off concentration--------- Amp hetamine 1000 ng/mLBarbiturates 200 ng/mLBenzodiazepines 200 ng/mLCocaine metabolites 300 ng/mLOpiates 300 ng/mLPhencyclidine 25 ng/mLPropoxyphene 300 ng/mLMarijuana metabolites 50 ng/mLMethadone 300 ng/mLUrine alcohol 20 mg/dL [facility][H] Drug Screen Urine (9 Drugs)2019-02-24 13:44:01* Test Item Value Reference Range Interpretation Comme nts U Amph Scr (test code = 3349-8) Negative Negative Urine Barbiturate Screen (test code = 3377-9) Negative Negative Urine Benzodiazepine Screen (test code = 3390-2) Negative Negative Urine Cannabinoid Screen; Abnormal (test code = 3427-2) Positive Negative A Urine Cocaine Screen (test code = 3397-7) Negative Negative Urine Methadone Screen (test code = 3773-9) Negative Negative Urine Opiate Screen (test code = 3879-4) Negative Negative Urine Phencyclidine Screen (test code = 3936-2) Negative Negative Urine Propoxyphene Screen (test code = 24023-0) Negative Negative Urine Drug Screen Note (test code = Urine Drug Screen Note) See Note Drugs reported a s positive have not been confirmed by a secondmethod and should be used for medical purposes only. To orderconfirmation, contact laboratory.note: Below are cut-off concentrations for all urine drugs ofabuse performed in the laboratory. Some drugs listed in the tablemay not be included in this panel.Description Cut-off concentration--------- Amp hetamine 1000 ng/mLBarbiturates 200 ng/mLBenzodiazepines 200 ng/mLCocaine metabolites 300 ng/mLOpiates 300 ng/mLPhencyclidine 25 ng/mLPropoxyphene 300 ng/mLMarijuana metabolites 50 ng/mLMethadone 300 ng/mLUrine alcohol 20 mg/dL [facility]"
[2023-11-13 16:03] LABS: Absolute Lymphocytes (CBC) 2.5 K/uL (0.7-4.9); Hematocrit 41.7 % (39.6-49.0); Lymphocytes % 40.4 % (15.3-44.8); MCV 86.8 fL (80-100); MPV 8.9 fL (7.6-11.3); Platelets 224 thou/uL (152-406); RBC Red Blood Cell Count 4.81 M/uL (4.33-5.43)
[2023-11-13 16:08] LABS: Protime INR 1.16
[2023-11-13 16:20] LABS: ALT/SGPT 21 U/L (16-61); AST/SGOT 17 U/L (15-37); Albumin 4.2 g/dL (3.4-5.0); Alkaline Phosphatase 117 U/L (45-117); BUN Blood Urea Nitrogen 7 mg/dL (7-18); Bicarbonate 29 mEq/L (21-32); Bilirubin Direct 0.4 mg/dL (0-0.2); Bilirubin Indirect, Calculated 0.7 mg/dL (0.2-0.8); Bilirubin Total 1.1 mg/dL (0.2-1.0); Glomerular Filtration Rate 114 ml/min (=/>90); Glucose Level 147 mg/dL (74-106); Potassium 3.3 mEq/L (3.5-5.1); Protein, Total 7.2 g/dL (6.4-8.2); Sodium Level 143 mEq/L (136-145)
[2023-11-13 17:44] LABS: Barbiturates NEGATIVE (NEGATIVE); Benzodiazepines POSITIVE (NEGATIVE); Cocaine NEGATIVE (NEGATIVE); METHAMPHETAM NEGATIVE (NEGATIVE); Methadone NEGATIVE (NEGATIVE); Opiates NEGATIVE (NEGATIVE); Phencyclidine NEGATIVE (NEGATIVE); THC Cannibis POSITIVE (NEGATIVE)
--- NOTE | 2023-11-13 17:44 | EDPHYS ---
Physician Documentation [facility] Name: Chan Gale Age: 23 yrs Sex: Male : 2000 Arrival Date: 11/13/2023 Time: 15:36 Bed 15 Private MD: ED Physician William Espinosa HPI: 11/13 17:34 This 23 yrs old Male presents to ER via Wheelchair with complaints of jasmeet Possible Overdose, Unresponsive. 17:34 The patient presents to the emergency department after a known overdose, a result of [facility] recreational substance abuse. Context: Method: the patient has a confirmed or suspected ingestion, of benzodiazepines, Time: just prior to arrival, Extent: Associated signs and symptoms: Pertinent positives: decreased level of consciousness, shortness of breath. Severity of symptoms: At their worst the symptoms were moderate in the emergency department the symptoms have improved markedly. The patient has experienced similar episodes in the past, multiple times. Historical: - Allergies: 15:38 No Known Allergies; aa5 - Home Meds: 15:38 Suboxone 8-2 mg sublingual film [Active]; gabapentin oral [Active]; Ativan 2 mg Oral aa5 tablet [Active]; Zyprexa Oral [Active]; - PMHx: 15:38 adhd; Anxiety; avoident restrictive food intact disorder; Bipolar disorder; Depression; aa5 drug abuse; - Immunization history:: Adult Immunizations up to date. - Social history:: Smoking status: unknown. - Family history:: not pertinent. ROS: 17:34 Constitutional: Negative for fever, chills, and weight loss, Eyes: Negative for injury, jasmeet pain, redness, and discharge, ENT: Negative for injury, pain, and discharge, Neck: Negative for injury, pain, and swelling, Cardiovascular: Negative for chest pain, palpitations, and edema, Abdomen/GI: Negative for abdominal pain, nausea, vomiting, diarrhea, and constipation, Back: Negative for injury and pain, : Negative for injury, bleeding, discharge, and swelling, MS/Extremity: Negative for injury and deformity, Skin: Negative for injury, rash, and discoloration, Psych: Negative for depression, anxiety, suicide ideation, homicidal ideation, and hallucinations, Allergy/Immunology: Negative for hives, rash, and allergies, Endocrine: Negative for neck swelling, polydipsia, polyuria, polyphagia, and marked weight changes, Hematologic/Lymphatic: Negative for swollen nodes, abnormal bleeding, and unusual bruising, 17:34 Respiratory: Positive for shortness of breath, 17:34 Neuro: Positive for altered mental status, near syncope, weakness, Exam: 17:34 Constitutional: This is a well developed, well nourished patient who is awake, alert, jasmeet and in no acute distress. Head/Face: Normocephalic, atraumatic. Eyes: Pupils equal round and reactive to light, extra-ocular motions intact. Lids and lashes normal. Conjunctiva and sclera are non-icteric and not injected. Cornea within normal limits. Periorbital areas with no swelling, redness, or edema. ENT: Nares patent. No nasal discharge, no septal abnormalities noted. Tympanic membranes are normal and external auditory canals are clear. Oropharynx with no redness, swelling, or masses, exudates, or evidence of obstruction, uvula midline. Mucous membranes moist. Neck: Trachea midline, no thyromegaly or masses palpated, and no cervical lymphadenopathy. Supple, full range of motion without nuchal rigidity, or vertebral point tenderness. No Meningismus. Chest/axilla: Normal chest wall appearance and motion. Nontender with no deformity. No lesions are appreciated. Cardiovascular: Regular rate and rhythm with a normal S1 and S2. No gallops, murmurs, or rubs. Normal PMI, no JVD. No pulse deficits. Abdomen/GI: Soft, non-tender, with normal bowel sounds. No distension or tympany. No guarding or rebound. No evidence of tenderness throughout. Back: No spinal tenderness. No costovertebral tenderness. Full range of motion. Male : Normal genitalia with no discharge or lesions. Skin: Warm, dry with normal turgor. Normal color with no rashes, no lesions, and no evidence of cellulitis. MS/ Extremity: Pulses equal, no cyanosis. Neurovascular intact. Full, normal range of motion. Neuro: Awake and alert, GCS 15, oriented to person, place, time, and situation. Cranial nerves II-XII grossly intact. Motor strength 5/5 in all extremities. Sensory grossly intact. Cerebellar exam normal. Normal gait. Psych: Awake, alert, with orientation to person, place and time. Behavior, mood, and affect are within normal limits. 17:34 ECG was reviewed by the Attending Physician. 17:34 Respiratory: the patient does not display signs of respiratory distress, Respirations: normal, symetrical, no use of accessory muscles, no grunting, no evidence of nasal flaring, no appreciated paradoxical movements, no prolonged exhalations, no pursed lip breathing, no retractions, no shallow respirations, no splinting, no tachypnea, Breath sounds: are clear throughout, no bronchial sounds, no decreased breath sounds, no rales, rhonchi, no stridor, no wheezing, 17:34 Musculoskeletal/extremity: DVT Exam: No signs of deep vein thrombosis. no pain, no swelling, no tenderness, negative Homans' sign noted on exam, no appreciated bluish discoloration, no erythema, no increased warmth, Vital Signs: 15:36 BP 125 / 91; Pulse 109; Resp 14 S; Temp 98.2(TE); Pulse Ox 100% on R/A; Weight 49.9 kg aa5 (R); Height 5 ft. 9 in. ; 15:49 BP 133 / 96; Pulse 86; Resp 14; Pulse Ox 100% on R/A; mb9 16:23 BP 92 / 78; Pulse 62; Resp 16; Pulse Ox 100% on R/A; mb9 17:29 BP 120 / 93; Pulse 58; Resp 15; Pulse Ox 100% on R/A; mb9 18:13 BP 122 / 86; Pulse 62; Resp 18; Pulse Ox 100% on R/A; mb9 15:36 Body Mass Index 16.24 (49.90 kg, 175.26 cm) aa5 NIH Stroke Scale Scores: 17:34 NIHSS Score: 0 jasmeet Shabnam Coma Score: 17:34 Eye Response: spontaneous(4). Motor Response: obeys commands(6). Verbal Response: jasmeet oriented(5). Total: 15. MDM: 15:39 Patient medically screened. jasmeet 17:39 Differential diagnosis: Ingestion/exposure to ativan polypharmacy, over medication. jasmeet Data reviewed: vital signs, nurses notes, lab test result(s), EKG, radiologic studies, plain films. Consideration of Admission/Observation Escalation of care including admission/observation considered. I considered the following discharge prescriptions or medication management in the emergency department Medications were administered in the Emergency Department. See MAR. Independent interpretation of the following test(s) in the Emergency Department EKG: See my EKG interpretation above. Test considered but Not performed: X-ray: no ct, no ekg. Historians other than the Patient: Parent: mom , well informed. Care significantly affected by the following chronic conditions: Obesity. Counseling: I had a detailed discussion with the patient and/or guardian regarding the historical points, exam findings, and any diagnostic results supporting the discharge/admit diagnosis, lab results, the need for outpatient follow up, for definitive care, a family practitioner, a psychiatrist. 11/13 15:39 Order name: Acetaminophen; Complete Time: 17:20 [facility] 11/13 15:39 Order name: Basic Metabolic Panel; Complete Time: 17:20 [facility] 11/13 15:39 Order name: CBC with Diff; Complete Time: 17:20 [facility] 11/13 15:39 Order name: ETOH Level; Complete Time: 17:20 [facility] 11/13 15:39 Order name: Hepatic Function; Complete Time: 17:20 [facility] 11/13 15:39 Order name: PT-INR; Complete Time: 17:20 jasmeet 11/13 15:39 Order name: Ptt, Activated; Complete Time: 17:20 [facility] 11/13 15:39 Order name: Salicylate; Complete Time: 17:20 [facility] 11/13 15:39 Order name: Urinalysis w/ reflexes 11/13 15:39 Order name: Urine Drug Screen 11/13 15:39 Order name: EKG; Complete Time: 15:40 11/13 15:39 Order name: EKG - Nurse/Tech; Complete Time: 15:41 [facility] 11/13 15:39 Order name: IV Saline Lock; Complete Time: 15:40 [facility] 11/13 15:39 Order name: Labs collected and sent; Complete Time: 15:41 [facility] 11/13 15:39 Order name: Suicide Screening ([place]); Complete Time: 16:23 [facility] 11/13 17:22 Order name: PO challenge: juice; Complete Time: 17:23 [facility] EC:34 Rate is 99 beats/min. Rhythm is regular. QRS [place] is Normal. MA interval is normal. QRS jasmeet interval is normal. QT interval is normal. No Q waves. T waves are Normal. No ST changes noted. Clinical impression: NSR w/ Non-specific ST/T Changes and No evidence of ischemia. Interpreted by me. Reviewed by me. Administered Medications: 15:46 Drug: Naloxone IVP 1 mg IVP once Route: IVP; Site: right antecubital; mb9 16:11 Follow up: Response: No adverse reaction as6 15:48 Drug: NS 0.9% IV 1000 ml IV at 1 bolus Per protocol; 1000 mL bolus Route: IV; Rate: 1 mb9 bolus; Site: right antecubital; 17:23 Follow up: Response: No adverse reaction; IV Status: Completed infusion mb9 17:26 Drug: Potassium PO Effervescent Tablet 25 mEq PO once; dissolve in 4 ounces of water or mb9 juice Route: PO; Disposition Summary: 11/13/23 17:43 Discharge Ordered Notes: Location: Home jasmeet Problem: new jasmeet Symptoms: have improved jasmeet Condition: Stable jasmeet Diagnosis - Abuse of other non-psychoactive substances jasmeet - Adverse effect of benzodiazepines jasmeet - Poisoning by benzodiazepines, accidental (unintentional) jasmeet - Bipolar disorder, unspecified jasmeet - Hypokalemia jasmeet Followup: jasmeet - With: Private Physician - When: 2 - 3 days - Reason: Recheck today's complaints, Continuance of care, Re-evaluation by your physician Followup: jasmeet - With: Marty Armas MD - When: 2 - 3 days - Reason: Recheck today's complaints, Continuance of care, Re-evaluation by your physician Discharge Instructions: - Discharge Summary Sheet jasmeet - Finding Treatment for Addiction jasmeet - Potassium Content of Foods jasmeet - Substance Use Disorder jasmeet - Supporting Someone With an Addiction jasmeet - Prescription Drug Misuse Information jasmeet - Supporting Someone With Bipolar Disorder jasmeet - Substance Use Disorder and Mental Illness jasmeet - Illegal Drug Use Information, Adult jasmeet - Supporting Someone With Substance Use Disorder jasmeet - Hypomania jasmeet Forms: - Medication Reconciliation Form jasmeet - Thank You Letter jasmeet - Antibiotic Education jasmeet - Prescription Opioid Use jasmeet - Patient Portal Instructions jasmeet - Leadership Thank You Letter [facility] NIH Stroke Scale - NIH Stroke Score Date: 11/13/2023 Time: 17:34 Total Score = 0 10. Dysarthria (speech clarity - read or repeat words) - 0(Normal) 11. Extinction and Inattention (visual/tactile/auditory/spatial/personal) - 0(No abnormality) 1a. Level of Consciousness (LOC) - 0(Alert) 1b. Level of Consciousness (LOC) (Month \T\ Age) - 0(Both) 1c. LOC Commands (Open \T\ Closes Eyes/[employer]) - 0(Both) 2. Best Gaze (Lateral Gaze Paresis) - 0(Normal) 3. Visual Field Loss - 0(No visual loss) 4. Facial Palsy - 0(Normal) 5a. Left Arm: Motor (10-second hold) - 0(No drift) 5b. Right Arm: Motor (10-second hold) - 0(No drift) 6a. Left Leg: Motor (5-second hold - always test supine) - 0(No drift) 6b. Right Leg: Motor (5-second hold - always test supine) - 0(No drift) 7. Limb Ataxia (finger/nose \T\ heel/collado - test with eyes open) - 0(Absent) 8. Sensory Loss (pinprick arms/legs/face) - 0(Normal) 9. Best Language: Aphasia (description/naming/reading) - 0(No aphasia) Initials: jasmeet Signatures: Dispatcher [employer] William Estrada MD MD cha Calderon, Audri RN RN aa5 Charlene Esqueda RN RN mb9 Terence Santiago RN as6
--- NOTE | 2023-11-13 17:44 | ER ---
Nurse's Notes [facility] Name: Chan Gale Age: 23 yrs Sex: Male : 2000 Arrival Date: 11/13/2023 Time: 15:36 Bed 15 Private MD: Diagnosis: Abuse of other non-psychoactive substances;Adverse effect of benzodiazepines;Poisoning by benzodiazepines, accidental (unintentional);Bipolar disorder, unspecified;Hypokalemia Presentation: 11/13 15:36 Chief complaint: Received call from registration for possible overdose, pt was found in aa5 passenger seat slumped over, unresponsive, central pulse palpated. Pt woke up when attempting to move from car to wheelchair. MD arrived when pt woke up. Pt states "I only took Ativan and Suboxone". 15:36 Coronavirus screen: At this time, the client does not indicate any symptoms associated aa5 with coronavirus-19. Ebola Screen: Patient denies travel to an Ebola-affected area in the 21 days before illness onset. Initial Sepsis Screen: Does the patient meet any 2 criteria? HR > 90 bpm. Does the patient have a suspected source of infection? No. Patient's initial sepsis screen is negative. Risk Assessment: Do you want to hurt yourself or someone else? Patient reports no desire to harm self or others. Onset of symptoms was November 13, 2023. 15:36 Acuity: SIRISHA 2 aa5 15:36 Method Of Arrival: Wheelchair aa 16:00 Note ER visitors stated pt was dropped off by someone "that took off running". [address] was notified by ER secretary specialist. Historical: - Allergies: 15:38 No Known Allergies; aa5 - Home Meds: 15:38 Suboxone 8-2 mg sublingual film [Active]; gabapentin oral [Active]; Ativan 2 mg Oral aa5 tablet [Active]; Zyprexa Oral [Active]; - PMHx: 15:38 adhd; Anxiety; avoident restrictive food intact disorder; Bipolar disorder; Depression; aa5 drug abuse; - Immunization history:: Adult Immunizations up to date. - Social history:: Smoking status: unknown. - Family history:: not pertinent. Screenin:48 [facility] ED Fall Risk Assessment (Adult) History of falling in the last 3 months, mb9 including since admission No falls in past 3 months (0 pts) Confusion or Disorientation No (0 pts) Intoxicated or Sedated No (0 pts) Impaired Gait No (0 pts) Mobility Assist Device Used No (0 pt) Altered Elimination No (0 pt) Score/Fall Risk Level 0 - 2 = Low Risk Oriented to surroundings, Maintained a safe environment, Educated pt \\T\\ family on fall prevention, incl call for assistance when getting out of bed. Abuse screen: Denies threats or abuse. Nutritional screening: No deficits noted. Tuberculosis screening: No symptoms or risk factors identified. Assessment: 15:49 General: Appears uncomfortable, Behavior is anxious. Pain: Denies pain. Neuro: Veras mb9 Agitation-Sedation Scale (RASS): -1 Drowsy Level of Consciousness is awake, confused, Oriented to person, place, Pupils are pinpoint. Cardiovascular: Patient's skin is warm and dry. Rhythm is regular. Respiratory: Airway is patent Respiratory effort is even, unlabored, Respiratory pattern is regular, symmetrical. GI: Abdomen is flat, non-distended. : No signs and/or symptoms were reported regarding the genitourinary system. EENT: No signs and/or symptoms were reported regarding the EENT system. Derm: Skin is pink, warm \\T\\ dry. Musculoskeletal: Range of motion: intact in all extremities. 16:17 Reassessment: [place] [employer] at bedside. as6 16:58 Reassessment: No changes from previously documented assessment. Patient and/or family mb9 updated on plan of care and expected duration. Pain level reassessed. Patient is alert, oriented x 3, equal unlabored respirations, skin warm/dry/pink. 17:35 Reassessment: Patient and/or family updated on plan of care and expected duration. Pain mb9 level reassessed. Patient is alert, oriented x 3, equal unlabored respirations, skin warm/dry/pink. Patient states feeling better. Patient states symptoms have improved. 18:13 Reassessment: No changes from previously documented assessment. Patient and/or family mb9 updated on plan of care and expected duration. Pain level reassessed. Patient is alert, oriented x 3, equal unlabored respirations, skin warm/dry/pink. Patient states feeling better. Patient states symptoms have improved. Vital Signs: 15:36 BP 125 / 91; Pulse 109; Resp 14 S; Temp 98.2(TE); Pulse Ox 100% on R/A; Weight 49.9 kg aa5 (R); Height 5 ft. 9 in. ; 15:49 BP 133 / 96; Pulse 86; Resp 14; Pulse Ox 100% on R/A; mb9 16:23 BP 92 / 78; Pulse 62; Resp 16; Pulse Ox 100% on R/A; mb9 17:29 BP 120 / 93; Pulse 58; Resp 15; Pulse Ox 100% on R/A; mb9 18:13 BP 122 / 86; Pulse 62; Resp 18; Pulse Ox 100% on R/A; mb9 15:36 Body Mass Index 16.24 (49.90 kg, 175.26 cm) aa5 [place] Coma Score: 17:34 Eye Response: spontaneous(4). Motor Response: obeys commands(6). Verbal Response: jasmeet oriented(5). Total: 15. NIH Stroke Scale Scores: 17:34 NIHSS Score: 0 jasmeet ED Course: 15:36 Arm band placed on. aa5 15:38 Patient arrived in ED. mb9 15:39 William Espinosa MD is Attending Physician. jasmeet 15:39 Charlene Esqueda, JASON is Primary Nurse. mb9 15:39 Inserted saline lock: 18 gauge in right antecubital area, using aseptic technique. mb9 15:39 EKG done, by ED staff, reviewed by William Espinosa MD. Inserted saline lock: 18 gauge in mb9 right upper arm, using aseptic technique. 15:44 Triage completed. aa5 15:48 Acetaminophen Sent. mb9 15:48 Basic Metabolic Panel Sent. mb9 15:48 CBC with Diff Sent. mb9 15:48 ETOH Level Sent. mb9 15:48 Hepatic Function Sent. mb9 15:48 PT-INR Sent. mb9 15:48 Ptt, Activated Sent. mb9 15:48 Salicylate Sent. mb9 15:49 Placed in gown. Bed in low position. Call light in reach. Side rails up X 1. Client mb9 placed on continuous cardiac and pulse oximetry monitoring. NIBP monitoring applied. media monitor on. 17:42 Marty Armas MD is Referral Physician. jasmeet 18:14 No provider procedures requiring assistance completed. IV discontinued, intact, mb9 bleeding controlled, No redness/swelling at site. Pressure dressing applied. Administered Medications: 15:46 Drug: Naloxone IVP 1 mg IVP once Route: IVP; Site: right antecubital; mb9 16:11 Follow up: Response: No adverse reaction as6 15:48 Drug: NS 0.9% IV 1000 ml IV at 1 bolus Per protocol; 1000 mL bolus Route: IV; Rate: 1 mb9 bolus; Site: right antecubital; 17:23 Follow up: Response: No adverse reaction; IV Status: Completed infusion mb9 17:26 Drug: Potassium PO Effervescent Tablet 25 mEq PO once; dissolve in 4 ounces of water or mb9 juice Route: PO; Medication: 15:49 VIS not applicable for this client. mb9 Outcome: 17:43 Discharge ordered by . jasmeet 18:14 Discharged to home ambulatory, with family, 9 18:14 Condition: stable 18:14 Discharge instructions given to patient, family, Instructed on discharge instructions, follow up and referral plans. Demonstrated understanding of instructions, follow-up care, 18:14 Patient left the ED. mb9 NIH Stroke Scale - NIH Stroke Score Date: 11/13/2023 Time: 17:34 Total Score = 0 10. Dysarthria (speech clarity - read or repeat words) - 0(Normal) 11. Extinction and Inattention (visual/tactile/auditory/spatial/personal) - 0(No abnormality) 1a. Level of Consciousness (LOC) - 0(Alert) 1b. Level of Consciousness (LOC) (Month \\T\\ Age) - 0(Both) 1c. LOC Commands (Open \\T\\ Closes Eyes/Metaphysicist) - 0(Both) 2. Best Gaze (Lateral Gaze Paresis) - 0(Normal) 3. Visual Field Loss - 0(No visual loss) 4. Facial Palsy - 0(Normal) 5a. Left Arm: Motor (10-second hold) - 0(No drift) 5b. Right Arm: Motor (10-second hold) - 0(No drift) 6a. Left Leg: Motor (5-second hold - always test supine) - 0(No drift) 6b. Right Leg: Motor (5-second hold - always test supine) - 0(No drift) 7. Limb Ataxia (finger/nose \\T\\ heel/collado - test with eyes open) - 0(Absent) 8. Sensory Loss (pinprick arms/legs/face) - 0(Normal) 9. Best Language: Aphasia (description/naming/reading) - 0(No aphasia) Initials: jasmeet Signatures: William Espinosa MD MD cha Calderon, Audri RN RN aa5 Terence Santiago RN RN as6 Charlene Esqueda RN RN mb9 Corrections: (The following items were deleted from the chart) 15:44 15:38 Arm band placed on mb9 aa5 15:46 15:36 Chief complaint: Received call from registration for possible overdose, aa5 pt was found in passenger side of car, unresponsive, central pulse palpated. Pt woke up when attempting to move from car to wheelchair. MD arrived when pt woke up. aa5 19:26 15:36 Chief complaint: Received call from registration for possible overdose, aa5 pt was found in passenger seat slumped over, unresponsive, central pulse palpated. Pt woke up when attempting to move from car to wheelchair. MD arrived when pt woke up. Pt states "I only took Ativan and Suboxone" aa5
[2023-11-13 17:45] LABS: Specific Gravity 1.008 (1.005-1.030); Urine Bacteria None Seen /HPF (<20); Urine Bilirubin NEGATIVE (Negative); Urine Blood Negative (Negative); Urine Clarity Turbid (Clear); Urine Color Light-Yellow (Yellow); Urine Glucose NEGATIVE (Negative); Urine Mucus Slight /HPF (None Seen); Urine Protein NEGATIVE (Negative); Urine RBC <5 /HPF (None Seen); Urine Urobilinogen Normal (Normal)
[2023-11-13 18:34] VITALS: TEMP 98.2; O2SAT 100
[2023-11-13 18:54] VITALS: BP 122/86
--- NOTE | 2023-11-16 11:03 | EKG ---
Test Date: 2023-11-13 Test Time: 15:39:36 Manager Public: KERRIE MEASUREMENT RESULTS: Intervals: Rate: 99 MA: 154 QRSD: 102 QT: 364 QTc: 467 Savage: P: 72 MA: 154 QRS: 245 T: 52 INTERPRETIVE STATEMENTS: Normal sinus rhythm Indeterminate axis Borderline ECG Compared to ECG 08/25/2023 10:46:05 Indeterminate axis now present Left-axis deviation no longer present Electronically Signed On 11-16-23 10:59:03 [employer] by Vikash Connelly
== END ==
LOC: ER 15:36
DX: T42.4X1A Poisoning by benzodiazepines, accidental (unintentional), initial encounter (principal); F55.8 Abuse of other non-psychoactive substances; T42.4X5A Adverse effect of benzodiazepines, initial encounter; E87.6 Hypokalemia; F31.9 Bipolar disorder, unspecified
CPT/HCPCS: 36415; 80048; 80076; 80143; 80179; 80307; 81001; 82077; 85025; 85610; 85730; 93005; 96361; 96374; 99291; 99292; J2310; J7030

== ENCOUNTER → 2023-12-03 | Emergency (ER) | payer OTHER ==
--- OUTSIDE RECORDS SUMMARY | 2023-12-03 08:54 | XMS REPORT | Continuity of Care Document ---
Author Name Unknown Address [address] [facility] [address] [place] [address] [facility] Address [address] [facility] [address] [place] [address] Care Team Providers Care Certified Tumor Registrar Name Role Phone KENYA FUENTES Primary Care Physician Unavailab KENYA Mosher Attending Clinician Unavailable DONTA HAYNES Attending Clinician UnavailDonta Raphael MD Attending Clinician [phone] CRISTINA AZUL Attending Clinician UnavailKenya Lazcano Attending Clinician [phone] Doctor Unassigned, [place] Attending Clinician U Marilu Bingham LVN Attending Clinician [phone] TRINIDAD ESTRADA Attending Clinician Unavailab Trinidad Martinez DO Attending Clinician [phone] MICHAEL ASHRAF Attending Clinician Unavailable Luci SHAH, Campbell Quesada Attending Clinician [phone] Ayaan Yung DO Attending Clinician [phone] Michael Ashraf DO Attending Clinician [phone] Oxana PHD, Kim Alicea Attending Clinician [phone] KIM PATEL Attending Clinician UnavailJAZMYN Spence M.D. Attending Clinician UnavailCHANCE Lima APRN Attending Clinician Un available KENYA FUENTES Admitting Clinician Unavailable CAMPBELL GUERRERO Admitting Clinician Unava ilable Ayaan Yung DO Admitting Clinician Payers Payer Name Policy Type Policy Number Effective Date Expirati on Date Source [facility] [id number] 2018 00:00:00 Problems Condition Name Condition Details Condition Category Status Onset Date Resolution Date Last Treatment Date Treating Clinician Comments Source Need for hepatitis C screening test Need for hepatitis C screening test Disease Active 10-20 00:00: 00 [facility] Low bone density for age Low bone density for age Disease Active 10-20 00:00: 00 [facility] Encounter to establish care Encounter to establish care Disease Active 2021-09 00:00: 00 [facility] RLS (restless legs syndrome) RLS (restless legs syndrome) Disease Active 2021-09 00:00: 00 [facility] BMI less than 19,adult BMI less than 19,adult Disease Active 2021-09 00:00: 00 [facility] Drug overdose of undetermin ed intent, initial encounter Drug overdose of undetermin ed intent, initial encounter Disease Active 2021-09 00:00: 00 [facility] Bipolar 1 disorder, mixed anxiety-de pression, moderate Bipolar 1 disorder, mixed anxiety-de pression, moderate Disease Recurre nce 2018-02-23 00:00: 00 [facility] Anxiety Anxiety Disease Active 02-23 00:00: 00 [facility] Underweigh t in childhood with BMI < 5th percentile Underweigh t in childhood with BMI < 5th percentile Disease Active 2017-09 00:00: 00 [facility] 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 Disease Active 04-19 00:00: 00 [facility] 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 Disease Active 04-19 00:00: 00 [facility] Nicotine abuse Nicotine abuse Disease Active 01-10 00:00: 00 [facility] Marijuana abuse, continuous Marijuana abuse, continuous Disease Active 2017-0 4-15 00:00: 00 [facility] Attention deficit hyperactiv ity disorder (ADHD) Attention deficit hyperactiv ity disorder (ADHD) Disease Recurre nce 2006- 1-19 00:00: 00 [facility] Sensory processing difficulty Sensory processing difficulty Problem [...] NO KNOWN ALLERGIE S Drug Class Active [facility] Social History Social Habit Start Date Stop Date Quantity Comments Source Exposure to SARS-CoV-2 (event) 2022-11-18 00:00:00 2022-11-28 11:48:00 Not sure [facility] Alcohol intake 2022-10-20 00:00:00 2022-10-20 00:00:00 Current non-drinker of alcohol (finding) [facility] Tobacco Comment 2022-09-05 00:00:00 2022-09-05 00:00:00 Vapes [facility] Tobacco use and exposure 2022-09-05 00:00:00 2022-09-05 00:00:00 Smokeless tobacco non-user [facility] Cigarettes smoked current (pack per day) - Reported 2022-09-05 00:00:00 2022-09-05 00:00:00 [facility] History of tobacco use 2018-07-08 00:00:00 Cigarette Smoker [facility] Sex Assigned At 2002 00:00:00 2002 00:00:00 [facility] Smoking Status Start Date Stop Date Source Never smoked tobacco (finding) [facility] Smokes tobacco daily 2022-09-05 00:00:00 [facility] Ex-smoker 2022-09-01 00:00:00 2022-09-01 00:00:00 [facility] Medications Ordered Medication Name Filled Medication Name Start Date Stop Date Current Medication? Ordering Clinician Indication Dosage Frequency Signature (SIG) Comments Components Source ondansetron (ZOFRAN) 4 mg tablet 12-02 00:00: 00 12-13 04:59 :00 No [id number] 4mg Take 1 tablet by mouth every 8 (eight) hours as needed for Nausea and Vomiting (N/V) for up to 10 days. [facility] ondansetron (ZOFRAN) 4 mg tablet 12-02 00:00: 00 12-13 04:59 :00 No [id number] 4mg Take 1 tablet by mouth every 8 (eight) hours as needed for Nausea and Vomiting (N/V) for up to 10 days. [facility] OXcarbazepi ne 600 mg tablet 2021-09 14:31: 18 09-05 00:00 :00 No 600mg Take 600 mg by mouth 2 (two) times daily. [facility] OXcarbazepi ne 600 mg tablet 2021-09 14:31: 18 09-05 00:00 :00 No 600mg Take 600 mg by mouth 2 (two) times daily. [facility] LORazepam 1 mg Cp24 2021-09 14:27: 07 09-05 00:00 :00 No 1mg Take 1 mg by mouth 2 (two) times daily. [facility] LORazepam 1 mg Cp24 2021-09 14:27: 07 09-05 00:00 :00 No 1mg Take 1 mg by mouth 2 (two) times daily. [facility] olanzapine (ZYPREXA ORAL) 2021-09 14:26: 27 Yes Take by mouth 2 (two) times daily. Prescribed by [facility] Apr 2019 [facility] gabapentin 600 mg tablet 2021-09 14:26: 27 Yes 600mg Take 600 mg by mouth in the morning and 600 mg at noon and 600 mg in the evening. [facility] olanzapine (ZYPREXA ORAL) 2021-09 14:26: 27 Yes Take by mouth 2 (two) times daily. Prescribed by [facility] Apr 2019 [facility] gabapentin 600 mg tablet 2021-09 14:26: 27 Yes 600mg Take 600 mg by mouth in the morning and 600 mg at noon and 600 mg in the evening. [facility] olanzapine (ZYPREXA ORAL) 2021-09 14:26: 27 Yes Take by mouth 2 (two) times daily. Prescribed by [facility] Apr 2019 [facility] gabapentin 600 mg tablet 2021-09 14:26: 27 Yes 600mg Take 600 mg by mouth in the morning and 600 mg at noon and 600 mg in the evening. [facility] olanzapine (ZYPREXA ORAL) 2021-09 14:26: 27 Yes Take by mouth 2 (two) times daily. Prescribed by [facility] Apr 2019 [facility] gabapentin 600 mg tablet 2021-09 14:26: 27 Yes 600mg Take 600 mg by mouth in the morning and 600 mg at noon and 600 mg in the evening. [facility] olanzapine (ZYPREXA ORAL) 2021-09 14:26: 27 Yes Take by mouth 2 (two) times daily. Prescribed by [facility] Apr 2019 [facility] gabapentin 600 mg tablet 2021-09 14:26: 27 Yes 600mg Take 600 mg by mouth in the morning and 600 mg at noon and 600 mg in the evening. [facility] olanzapine (ZYPREXA ORAL) 2021-09 14:26: 27 Yes Take by mouth 2 (two) times daily. Prescribed by [facility] Apr 2019 [facility] gabapentin 600 mg tablet 2021-09 14:26: 27 Yes 600mg Take 600 mg by mouth in the morning and 600 mg at noon and 600 mg in the evening. [facility] olanzapine (ZYPREXA ORAL) 2021-09 14:26: 27 Yes Take by mouth 2 (two) times daily. Prescribed by [facility] Apr 2019 [facility] gabapentin 600 mg tablet 2021-09 14:26: 27 Yes 600mg Take 600 mg by mouth in the morning and 600 mg at noon and 600 mg in the evening. [facility] olanzapine (ZYPREXA ORAL) 2021-09 14:26: 27 Yes Take by mouth 2 (two) times daily. Prescribed by [facility] Apr 2019 [facility] gabapentin 600 mg tablet 2021-09 14:26: 27 Yes 600mg Take 600 mg by mouth in the morning and 600 mg at noon and 600 mg in the evening. [facility] olanzapine (ZYPREXA ORAL) 2021-09 14:26: 27 Yes Take by mouth 2 (two) times daily. Prescribed by [facility] Apr 2019 [facility] gabapentin 600 mg tablet 2021-09 14:26: 27 Yes 600mg Take 600 mg by mouth in the morning and 600 mg at noon and 600 mg in the evening. [facility] olanzapine (ZYPREXA ORAL) 2021-09 14:26: 27 Yes Take by mouth 2 (two) times daily. Prescribed by [facility] Apr 2019 [facility] gabapentin 600 mg tablet 2021-09 14:26: 27 Yes 600mg Take 600 mg by mouth in the morning and 600 mg at noon and 600 mg in the evening. [facility] olanzapine (ZYPREXA ORAL) 2021-09 14:26: 27 Yes Take by mouth 2 (two) times daily. Prescribed by [facility] Apr 2019 [facility] gabapentin 600 mg tablet 2021-09 14:26: 27 Yes 600mg Take 600 mg by mouth in the morning and 600 mg at noon and 600 mg in the evening. [facility] olanzapine (ZYPREXA ORAL) 2021-09 14:26: 27 Yes Take by mouth 2 (two) times daily. Prescribed by [facility] Apr 2019 [facility] gabapentin 600 mg tablet 2021-09 14:26: 27 Yes 600mg Take 600 mg by mouth in the morning and 600 mg at noon and 600 mg in the evening. [facility] olanzapine (ZYPREXA ORAL) 2021-09 14:26: 27 Yes Take by mouth 2 (two) times daily. Prescribed by [facility] Apr 2019 [facility] gabapentin 600 mg tablet 2021-09 14:26: 27 Yes 600mg Take 600 mg by mouth in the morning and 600 mg at noon and 600 mg in the evening. [facility] olanzapine (ZYPREXA ORAL) 2021-09 14:26: 27 Yes Take by mouth 2 (two) times daily. Prescribed by [facility] Apr 2019 [facility] gabapentin 600 mg tablet 2021-09 14:26: 27 Yes 600mg Take 600 mg by mouth in the morning and 600 mg at noon and 600 mg in the evening. [facility] olanzapine (ZYPREXA ORAL) 2021-09 14:26: 27 Yes Take by mouth 2 (two) times daily. Prescribed by [facility] Apr 2019 [facility] gabapentin 600 mg tablet 2021-09 14:26: 27 Yes 600mg Take 600 mg by mouth in the morning and 600 mg at noon and 600 mg in the evening. [facility] olanzapine (ZYPREXA ORAL) 2021-09 14:26: 27 Yes Take by mouth 2 (two) times daily. Prescribed by [facility] Apr 2019 [facility] gabapentin 600 mg tablet 2021-09 14:26: 27 Yes 600mg Take 600 mg by mouth in the morning and 600 mg at noon and 600 mg in the evening. [facility] olanzapine (ZYPREXA ORAL) 2021-09 14:26: 27 Yes Take by mouth 2 (two) times daily. Prescribed by [facility] Apr 2019 [facility] gabapentin 600 mg tablet 2021-09 14:26: 27 Yes 600mg Take 600 mg by mouth in the morning and 600 mg at noon and 600 mg in the evening. [facility] olanzapine (ZYPREXA ORAL) 2021-09 14:26: 27 Yes Take by mouth 2 (two) times daily. Prescribed by [facility] Apr 2019 [facility] gabapentin 600 mg tablet 2021-09 14:26: 27 Yes 600mg Take 600 mg by mouth in the morning and 600 mg at noon and 600 mg in the evening. [facility] SERTraline 100 mg tablet 2021-09 14:19: 22 09-05 00:00 :00 No 100mg Take 100 mg by mouth daily. Prescribed by [facility] Apr 2019 [facility] SERTraline 100 mg tablet 2021-09 14:19: 22 09-05 00:00 :00 No 100mg Take 100 mg by mouth daily. Prescribed by [facility] Apr 2019 [facility] nicotine (NICODERM) 21 mg/24 hr patch 1 Patch 2021-09 19:45: 00 Yes 1{patch } 1 Patch, Topical, Administer over 24 Hours, Q24H, First dose on Thu09/02/22 at 1345, Until Discontinu ed, Routine [facility] hydrOXYzine (ATARAX) tablet 10 mg 2021-09 19:30: 00 09-02 18:49 :00 No 10mg 10 mg, Oral, ONCE, 1 dose, On Thu09/02/22 at 1330, Routine [facility] gabapentin 600 mg tablet 2021-09 17:34: 50 Yes 600mg Take 600 mg by mouth in the morning and 600 mg at noon and 600 mg in the evening. [facility] gabapentin 600 mg tablet 2021-09 17:34: 50 Yes 600mg Take 600 mg by mouth in the morning and 600 mg at noon and 600 mg in the evening. [facility] gabapentin 600 mg tablet 2021-09 17:34: 50 Yes 600mg Take 600 mg by mouth in the morning and 600 mg at noon and 600 mg in the evening. [facility] OXcarbazepi ne 600 mg tablet 2021-09 15:34: 48 Yes 600mg Take 600 mg by mouth 2 (two) times daily. [facility] SERTraline 100 mg tablet 2021-09 15:34: 48 Yes 100mg Take 100 mg by mouth daily. Prescribed by [facility] - Apr 2019 [facility] olanzapine (ZYPREXA ORAL) 2021-09 15:34: 48 Yes Take by mouth 2 (two) times daily. Prescribed by [facility] - Apr 2019 [facility] LORazepam 1 mg Cp24 2021-09 15:34: 48 Yes 1mg Take 1 mg by mouth 2 (two) times daily. [facility] OXcarbazepi ne 600 mg tablet 2021-09 15:34: 48 Yes 600mg Take 600 mg by mouth 2 (two) times daily. [facility] SERTraline 100 mg tablet 2021-09 15:34: 48 Yes 100mg Take 100 mg by mouth daily. Prescribed by [facility] Apr 2019 [facility] olanzapine (ZYPREXA ORAL) 2021-09 15:34: 48 Yes Take by mouth 2 (two) times daily. Prescribed by [facility] Apr 2019 [facility] LORazepam 1 mg Cp24 2021-09 15:34: 48 Yes 1mg Take 1 mg by mouth 2 (two) times daily. [facility] OXcarbazepi ne 600 mg tablet 2021-09 15:34: 48 Yes 600mg Take 600 mg by mouth 2 (two) times daily. [facility] SERTraline 100 mg tablet 2021-09 15:34: 48 Yes 100mg Take 100 mg by mouth daily. Prescribed by [facility] Apr 2019 [facility] olanzapine (ZYPREXA ORAL) 2021-09 15:34: 48 Yes Take by mouth 2 (two) times daily. Prescribed by [facility] Apr 2019 [facility] LORazepam 1 mg Cp24 2021-09 15:34: 48 Yes 1mg Take 1 mg by mouth 2 (two) times daily. [facility] OXcarbazepi ne 600 mg tablet 2021-09 15:34: 48 Yes 600mg Take 600 mg by mouth 2 (two) times daily. [facility] SERTraline 100 mg tablet 2021-09 15:34: 48 Yes 100mg Take 100 mg by mouth daily. Prescribed by [facility] Apr 2019 [facility] olanzapine (ZYPREXA ORAL) 2021-09 15:34: 48 Yes Take by mouth 2 (two) times daily. Prescribed by [facility] Apr 2019 [facility] gabapentin 600 mg tablet 2021-09 15:34: 48 Yes 600mg Take 600 mg by mouth in the morning and 600 mg at noon and 600 mg in the evening. [facility] LORazepam 1 mg Cp24 2021-09 15:34: 48 Yes 1mg Take 1 mg by mouth 2 (two) times daily. [facility] LORazepam (ATIVAN) tablet 1 mg 2021-09 15:00: 00 Yes 1mg 1 mg, Oral, QAM, First dose on Thu09/02/22 at 0900, Until Discontinu ed, Routine [facility] OLANZapine (ZyPREXA) tablet 15 mg 2021-09 03:00: 00 Yes 15mg 15 mg, Oral, QHS, First dose on Thu09/01/22 at 2100, Until Discontinu ed, Routine [facility] PARoxetine (PAXIL) tablet 20 mg 2021-09 03:00: 00 Yes 20mg 20 mg, Oral, QHS, First dose on Thu09/01/22 at 2100, Until Discontinu ed, Routine [facility] gabapentin (NEURONTIN) tablet 600 mg 2021-09 02:00: 00 Yes 600mg 600 mg, Oral, TID, First dose on Thu09/01/22 at 2000, Until Discontinu ed, Routine [facility] acetaminoph en (TYLENOL) tablet 325 mg 2021-09 23:49: 00 09-02 00:20 :00 No 325mg 325 mg, Oral, ONCE, 1 dose, On Thu09/01/22 at 1800, Routine [facility] clonazePAM (KLONOPIN) tablet 1 mg 2021-09 16:15: 00 Yes 1mg 1 mg, Oral, Q8H, First dose (after last modificati on) on Thu09/01/22 at 1015, Until Discontinu ed, Routine [facility] ketamine (KETALAR) injection 50 mg 2021-09 23:30: 00 08-31 07:04 :00 No 50mg 50 mg, Slow IV Push, ONCE, 1 dose, On Thu08/31/22 at 1730, Routine [facility] clonazePAM 0.1 mg/mL oral suspension 1 mg 2021-09 20:00: 00 09-01 14:29 :11 No 1mg 1 mg, Oral, TID, First dose on [place] 08/31/22 at 1400, Until Discontinu ed, Routine [facility] midazolam (VERSED) STD 50mg in NaCl 0.9% (NS) 50 mL infusion RTU 2021-09 16:14: 18 09-01 11:18 :51 No 1mg/h 1-10 mg/hr (1-10 mL/hr), IV Infusion, TITRATE, Sedation-R ASS score (0 to -1), Sedation-R ASS score (-2 to -3), If too agitated may use a rass of -3, Starting on [place] 08/31/22 at 1014
In itiate infusion at 1 mg/hr and titrate by 1 mg/hr every 3 minutes to 10 minutes to goal sedation score. Maximum dose = 10 mg/hr.&nbs p; If goal not maintained at maximum allowed dose, contact prescriber .
[facility] enoxaparin (LOVENOX) injection 40 mg 2021-09 15:00: 00 Yes 40mg 40 mg, Subcutaneo us, DAILY, First dose on [place] 08/31/22 at 0900, Until Discontinu ed, Routine [facility] dexMEDEtomi dine 200 mcg in 0.9 % NaCl 50 mL (PRECEDEX) RTU IV infusion 2021-09 14:33: 19 09-02 00:39 :35 No .2ug/kg /h 0.2-1.5 mcg/kg/hr ?61 kg (3.05-22.8 75 mL/hr, rounded to 3.05-22.88 mL/hr), IV Infusion, TITRATE, Sedation-R ASS score (0 to -1), Starting on [place] 08/31/22 at 0833
In itiate infusion at 0.2 mcg/kg/hr and titrate by 0.1 mcg/kg/hr every 30 minutes to goal sedation score. Maximum dose = 1.5 mcg/kg/hr. If goal not maintained at maximum allowed dose, contact prescriber .
[facility] fentaNYL PF (SUBLIMAZE) STD 2,500 mcg in NaCl 0.9% (NS) 250 mL infusion RTU 2021-09 08:03: 47 09-01 11:18 :51 No 25ug/h 25-200 mcg/hr (2.5-20 mL/hr), IV Infusion, TITRATE, CPOT/Pain Scale Goals Determined by Provider, Starting on [place] 08/31/22 at 0203
In itiate infusion at 25 mcg/hr. Titrate by 25 mcg/hr every 1 minute to 15 minutes to identified goal pain and/or sedation scores. Maximum dose = 200 mcg/hr. If goal not maintained at maximum allowed dose, contact prescriber .
[facility] FENTanyl PF (SUBLIMAZE (PF)) injection 50 mcg 2021-09 08:00: 00 08-31 07:14 :00 No 50ug 50 mcg, Slow IV Push, ONCE, 1 dose, On [place] 08/31/22 at 0200, Routine [facility] propofoL IV infusion 2021-09 07:24: 17 08-31 07:09 :53 No 5ug/kg/ min 5-50 mcg/kg/min ?61 kg (1.83-18.3 mL/hr), IV Infusion, TITRATE, Sedation-R ASS score (0 to -1), Starting on [place] 08/31/22 at 0124
In itiate infusion at 5 mcg/kg/min and titrate by 5 mcg/kg/min every 30 seconds to 10 minutes to goal sedation score. Maximum dose = 50 mcg/kg/min . If goal not maintained at maximum allowed dose, contact prescriber . &nbs p;Tubing and unused portions of vials should be discarded after 12 hours.
[facility] lactated ringers IV infusion 1,000 mL 2021-09 07:15: 00 08-31 07:00 :00 No 1000mL at 999 mL/hr, 1,000 mL, Intravenou s, ONCE, 1 dose, On [place] 08/31/22 at 0115, Routine [facility] midazolam (VERSED) STD 50mg in NaCl 0.9% [...] at maximum allowed dose, contact prescriber .
[facility] gabapentin 300 mg/6 mL (6 mL) solution 2021-09 23:09: 11 08-30 00:00 :00 No Take by mouth 2 (two) times daily. prescribed at [facility] no summer 2018 [facility] PARoxetine 20 mg tablet 2021-09 00:00: 00 Yes 20mg Take 20 mg by mouth in the morning. [facility] LORazepam 1 mg tablet 2021-09 00:00: 00 Yes 1mg Take 1 mg by mouth in the morning. [facility] PARoxetine 20 mg tablet 2021-09 00:00: 00 Yes 20mg Take 20 mg by mouth in the morning. [facility] LORazepam 1 mg tablet 2021-09 00:00: 00 Yes 1mg Take 1 mg by mouth in the morning. [facility] PARoxetine 20 mg tablet 2021-09 00:00: 00 Yes 20mg Take 20 mg by mouth in the morning. [facility] LORazepam 1 mg tablet 2021-09 00:00: 00 Yes 1mg Take 1 mg by mouth in the morning. [facility] PARoxetine 20 mg tablet 2021-09 00:00: 00 Yes 20mg Take 20 mg by mouth in the morning. [facility] LORazepam 1 mg tablet 2021-09 00:00: 00 Yes 1mg Take 1 mg by mouth in the morning. [facility] PARoxetine 20 mg tablet 2021-09 00:00: 00 Yes 20mg Take 20 mg by mouth in the morning. [facility] LORazepam 1 mg tablet 2021-09 00:00: 00 Yes 1mg Take 1 mg by mouth in the morning. [facility] PARoxetine 20 mg tablet 2021-09 00:00: 00 Yes 20mg Take 20 mg by mouth in the morning. [facility] LORazepam 1 mg tablet 2021-09 00:00: 00 Yes 1mg Take 1 mg by mouth in the morning. [facility] PARoxetine 20 mg tablet 2021-09 00:00: 00 Yes 20mg Take 20 mg by mouth in the morning. [facility] LORazepam 1 mg tablet 2021-09 00:00: 00 Yes 1mg Take 1 mg by mouth in the morning. [facility] PARoxetine 20 mg tablet 2021-09 00:00: 00 Yes 20mg Take 20 mg by mouth in the morning. [facility] LORazepam 1 mg tablet 2021-09 00:00: 00 Yes 1mg Take 1 mg by mouth in the morning. [facility] PARoxetine 20 mg tablet 2021-09 00:00: 00 Yes 20mg Take 20 mg by mouth in the morning. [facility] LORazepam 1 mg tablet 2021-09 00:00: 00 Yes 1mg Take 1 mg by mouth in the morning. [facility] PARoxetine 20 mg tablet 2021-09 00:00: 00 Yes 20mg Take 20 mg by mouth in the morning. [facility] LORazepam 1 mg tablet 2021-09 00:00: 00 Yes 1mg Take 1 mg by mouth in the morning. [facility] PARoxetine 20 mg tablet 2021-09 00:00: 00 Yes 20mg Take 20 mg by mouth in the morning. [facility] LORazepam 1 mg tablet 2021-09 00:00: 00 Yes 1mg Take 1 mg by mouth in the morning. [facility] PARoxetine 20 mg tablet 2021-09 00:00: 00 Yes 20mg Take 20 mg by mouth in the morning. [facility] LORazepam 1 mg tablet 2021-09 00:00: 00 Yes 1mg Take 1 mg by mouth in the morning. [facility] PARoxetine 20 mg tablet 2021-09 00:00: 00 Yes 20mg Take 20 mg by mouth in the morning. [facility] LORazepam 1 mg tablet 2021-09 00:00: 00 Yes 1mg Take 1 mg by mouth in the morning. [facility] PARoxetine 20 mg tablet 2021-09 00:00: 00 Yes 20mg Take 20 mg by mouth in the morning. [facility] LORazepam 1 mg tablet 2021-09 00:00: 00 Yes 1mg Take 1 mg by mouth in the morning. [facility] PARoxetine 20 mg tablet 2021-09 00:00: 00 Yes 20mg Take 20 mg by mouth in the morning. [facility] LORazepam 1 mg tablet 2021-09 00:00: 00 Yes 1mg Take 1 mg by mouth in the morning. [facility] PARoxetine 20 mg tablet 2021-09 00:00: 00 Yes 20mg Take 20 mg by mouth in the morning. [facility] LORazepam 1 mg tablet 2021-09 00:00: 00 Yes 1mg Take 1 mg by mouth in the morning. [facility] PARoxetine 20 mg tablet 2021-09 00:00: 00 Yes 20mg Take 20 mg by mouth in the morning. [facility] LORazepam 1 mg tablet 2021-09 00:00: 00 Yes 1mg Take 1 mg by mouth in the morning. [facility] PARoxetine 20 mg tablet 2021-09 00:00: 00 Yes 20mg Take 20 mg by mouth in the morning. [facility] LORazepam 1 mg tablet 2021-09 00:00: 00 Yes 1mg Take 1 mg by mouth in the morning. [facility] SERTraline 100 mg tablet 10-22 18:52: 12 Yes 100mg Take 100 mg by mouth daily. Prescribed by [facility] Apr 2019 [facility] SERTraline 100 mg tablet 10-22 18:52: 12 Yes 100mg Take 100 mg by mouth daily. Prescribed by [facility] Apr 2019 [facility] SERTraline 100 mg tablet 10-22 18:52: 12 Yes 100mg Take 100 mg by mouth daily. Prescribed by [facility] Apr 2019 [facility] olanzapine (ZYPREXA ORAL) 10-22 18:52: 09 Yes Take by mouth 2 (two) times daily. Prescribed by [facility] Apr 2019 [facility] olanzapine (ZYPREXA ORAL) 10-22 18:52: 09 Yes Take by mouth 2 (two) times daily. Prescribed by [facility] Apr 2019 [facility] olanzapine (ZYPREXA ORAL) 10-22 18:52: 09 Yes Take by mouth 2 (two) times daily. Prescribed by [facility] Apr 2019 [facility] gabapentin 300 mg/6 mL (6 mL) solution 10-22 18:52: 07 Yes Take by mouth 2 (two) times daily. prescribed at [facility] summer [facility] gabapentin 300 mg/6 mL (6 mL) solution 10-22 18:52: 07 Yes Take by mouth 2 (two) times daily. prescribed at [facility] summer [facility] gabapentin 300 mg/6 mL (6 mL) solution 10-22 18:52: 07 Yes Take by mouth 2 (two) times daily. prescribed at [facility] summer [facility] OXcarbazepi ne (TRILEPTAL) 600 mg tablet 10-22 18:52: 06 Yes 600mg Take 600 mg by mouth 2 (two) times daily. [facility] OXcarbazepi ne (TRILEPTAL) 600 mg tablet 10-22 18:52: 06 Yes 600mg Take 600 mg by mouth 2 (two) times daily. [facility] OXcarbazepi ne (TRILEPTAL) 600 mg tablet 10-22 18:52: 06 Yes 600mg Take 600 mg by mouth 2 (two) times daily. [facility] Sertraline HCl - 50 MG Oral Tablet Sertraline HCl - 50 MG Oral Tablet 10-20 00:00: 00 Yes JAZMYN TEDDY M.D. Take 25 mg po daily x 15 days and then increase it to 50 mg po daily [facility] Sertraline HCl - 100 MG Oral Tablet Sertraline HCl - 100 MG Oral Tablet 2018-09 00:00: 00 Yes JAZMYN TEDDY M.D. 1 QD TAKE ONE (1) TABLET(S) BY MOUTH ONCE A DAY. [facility] OLANZapine 10 MG Oral Tablet OLANZapine 10 MG Oral Tablet 2018-09 00:00: 00 Yes JAZMYN TEDDY M.D. 1 TAKE 1 TABLET AT BEDTIME. [facility] Gabapentin 300 MG Oral Capsule Gabapentin 300 MG Oral Capsule 2018-09 00:00: 00 Yes JAZMYN TEDDY M.D. Q0.3333D TAKE 1 CAPSULE 3 TIMES DAILY. [facility] OXcarbazepi ne 300 MG Oral Tablet OXcarbazepi ne 300 MG Oral Tablet 06-13 00:00: 00 Yes JAZMYN TEDDY M.D. Q0.5D TAKE ONE (1) TABLET(S) BY MOUTH TWICE A DAY. [facility] busPIRone 15 mg tablet 03-03 00:00: 00 Yes [id number] 15mg Take 1 tablet by mouth 2 (two) times daily. [facility] DULoxetine 60 mg capsule 03-01 00:00: 00 Yes [id number] 60mg Take 1 capsule by mouth daily. [facility] DULoxetine 30 mg capsule 03-01 00:00: 00 Yes [id number] 30mg Take 1 capsule by mouth daily. [facility] OXcarbazepi ne (TRILEPTAL) 600 mg tablet 02-23 19:48: 44 Yes 600mg Take 600 mg by mouth 2 (two) times daily. [facility] traZODONE 50 mg tablet 02-23 00:00: 00 Yes [id number] 25mg Take 0.5 tablets by mouth 2 (two) times daily. [facility] Multi-Vitam in TABS Multi-Vitam in TABS Yes [facility] Vital Signs Vital Name Observation Time Observation Value Comments S ource Systolic blood pressure 2022-11-28 17:50:00 104 mm[Hg] [facility] Diastolic blood pressure 2022-11-28 17:50:00 52 mm[Hg] [facility] Heart rate 2022-11-28 17:50:00 106 /min [facility] Body height 2022-11-28 17:50:00 172.7 cm [facility] Body weight 2022-11-28 17:50:00 62.551 kg [facility] BMI 2022-11-28 17:50:00 20.97 kg/m2 [facility] Oxygen saturation in Arterial blood by Pulse oximetry 2022-11-28 17:50:00 93 /min [facility] Systolic blood pressure 2022-10-20 14:09:00 108 mm[Hg] [facility] Diastolic blood pressure 2022-10-20 14:09:00 65 mm[Hg] [facility] Heart rate 2022-10-20 14:09:00 95 /min [facility] Body temperature 2022-10-20 14:09:00 37.06 Jeana [facility] Body height 2022-10-20 14:09:00 172.7 cm [facility] Body weight 2022-10-20 14:09:00 58.968 kg [facility] BMI 2022-10-20 14:09:00 19.77 kg/m2 [facility] Oxygen saturation in Arterial blood by Pulse oximetry 2022-10-20 14:09:00 98 /min [facility] Systolic blood pressure 2022-09-05 20:22:00 101 mm[Hg] [facility] Diastolic blood pressure 2022-09-05 20:22:00 64 mm[Hg] [facility] Heart rate 2022-09-05 20:22:00 62 /min [facility] Body temperature 2022-09-05 20:22:00 36.33 Jeana [facility] Body height 2022-09-05 20:22:00 172.7 cm [facility] Body weight 2022-09-05 20:22:00 56.337 kg [facility] BMI 2022-09-05 20:22:00 18.88 kg/m2 [facility] Oxygen saturation in Arterial blood by Pulse oximetry 2022-09-05 20:22:00 97 /min [facility] Systolic blood pressure 2022-09-03 05:40:00 110 mm[Hg] [facility] Diastolic blood pressure 2022-09-03 05:40:00 81 mm[Hg] [facility] Heart rate 2022-09-03 05:40:00 64 /min [facility] Body temperature 2022-09-03 05:40:00 37.22 Jeana [facility] Respiratory rate 2022-09-03 05:40:00 18 /min [facility] Body height 2022-09-03 05:40:00 172.7 cm [facility] Body weight 2022-09-03 05:40:00 57.153 kg [facility] BMI 2022-09-03 05:40:00 19.16 kg/m2 [facility] Oxygen saturation in Arterial blood by Pulse oximetry 2022-09-03 05:40:00 100 /min [facility] Systolic blood pressure 2022-09-02 17:17:00 114 mm[Hg] [facility] Diastolic blood pressure 2022-09-02 17:17:00 75 mm[Hg] [facility] Heart rate 2022-09-02 17:17:00 81 /min [facility] Body temperature 2022-09-02 17:17:00 36.61 Jeana [facility] Respiratory rate 2022-09-02 17:17:00 18 /min [facility] Oxygen saturation in Arterial blood by Pulse oximetry 2022-09-02 17:17:00 99 /min [facility] Body weight 2022-09-01 19:40:00 61 kg [facility] BMI 2022-09-01 19:40:00 20.45 kg/m2 [facility] Body height 2022-09-01 19:36:00 172.7 cm [facility] BP Systolic 2019-10-20 12:54:00 118 mm[Hg] [...] Rate 2019-02-24 10:04:00 62 /min Quality: Normal [facility] Respiration Rate 2019-02-24 10:04:00 18 /min Quality: Normal [facility] O2 SAT 2019-02-24 10:04:00 100 % [...] Date / Time Performed Performing Clinician Source [facility] PATIENT FINANCIAL POLICY 2022-11-28 17:49:34 Doctor Unassigned, [place] [facility] EXTERNAL PROVIDER RECORDS 2022-11-19 06:01:00 Doctor Unassigned, [place] [facility] DEXA AXIAL (HIP AND SPINE) 2022-09-17 19:58:00 Kenya Fuentes [facility] EXTERNAL PROVIDER RECORDS 2022-09-16 06:01:00 Doctor Unassigned, [place] [facility] ASSIGNMENT OF BENEFITS 2022-09-05 19:47:49 Docto r Unassigned, [place] [facility] COMP. METABOLIC PANEL ([id number]) 2022-09-01 10:44:00 [facility] CBC WITH DIFF 2022-09-01 10:44:00 [facility] XR CHEST 1 VW 2022-09-01 10:15:00 Johann Cormier [facility] CREATINE KINASE 2022-08-31 09:35:00 Dolly Beasley [facility] MAGNESIUM 2022-08-31 09:35:00 Jael Coppola [facility] TROPONIN I 2022-08-31 09:35:00 Jael Coppola [facility] COMP. METABOLIC PANEL (02628) 2022-08-31 09:35:00 Jael Coppola [facility] SALICYLATE 2022-08-31 09:35:00 Jael Coppola [facility] ETHANOL 2022-08-31 09:35:00 Jael Coppola [facility] CBC WITH DIFF 2022-08-31 09:35:00 Jael Coppola [facility] URINE DRUG (IMMUNOASSAY) - COMPREHENSIVE DRUG SCREEN 2022-08-31 09:07:00 Jael Coppola [facility] URINE DRUG (LCMSMS) - COMPREHENSIVE DRUG PANEL 2022-08-31 09:07:00 Jael Coppola [facility] AC PANEL 20 + LACTIC ACID 2022-08-31 09:01:00 Jael Coppola [facility] XR CHEST 1 VW 2022-08-31 05:44:00 Jael Coppola [facility] XR KUB 2022-08-31 05:44:00 Jael Coppola [facility] AUTHORIZATION FOR RELEASE OF PHI 2020-08-21 06:01:00 Doctor Unassigned, [place] [facility] [[facility]] CBC (INCLUDES DIFF/PLT) 2019-10-20 00:00:00 [facility]] CMP W/EGFR 2019-10-20 00:00:00 [facility] LIPID PANEL 2019-10-20 00:00:00 [facility] [QL] TSH, 3RD GENERATION 2019-10-20 00:00:00 [facility] [Q] DRUG SCREEN,COMPREHENSIVE (URINE) 2019-07-20 00:00:00 [facility] [Q] DRUG SCREEN,COMPREHENSIVE (URINE) 2019-02-24 00:00:00 [facility] Encounters Start Date/Time End Date/Time Encounter Type Admission Type Attending Clinicians Care Facility Care Department Encounter ID Source 2023-04-24 11:00:00 2023-04-24 11:00:00 Outpatient DONTA CUEVAS [facility] [id number] [facility] 2022-12-30 00:00:00 2022-12-30 00:00:00 Telephone Donta Haynes [facility] 1.840.114 350.1.13.10 4.2.7.2.686 [id number] [facility] 2022-12-03 14:00:00 2022-12-03 14:00:00 Outpatient R ADAMA KENYA [facility] [id number] [facility] 2022-12-02 00:00:00 2022-12-02 00:00:00 Telephone Chloeradha Kenya [facility] 1..840.114 350.1.13.10 4.2.7.2.686 [id number] [facility] 2022-11-28 12:00:00 2022-11-28 13:03:08 Outpatient R DALLAS DONTA [facility] [id number] [facility] 2022-11-28 12:00:00 2022-11-28 13:03:08 Office Visit HaynesDonta [facility] 1.2.840.114 350.1.13.10 4.2.7.2.686 [id number] [facility] 2022-11-28 00:00:00 2022-11-28 00:00:00 Orders Only Doctor Unassigned, [place] [facility] 1.2840.114 350.1.13.10 4.2.7.2.686 [id number] [facility] 2022-11-19 00:00:00 2022-11-19 00:00:00 Orders Only Doctor Unassigned, [place] [facility] 1.2840.114 350.1.13.10 4.2.7.2.686 [id number] [facility] 2022-10-20 08:00:00 2022-10-20 08:45:36 Outpatient R KENYA FUENTES [facility] [id number] [facility] 2022-10-20 08:00:00 2022-10-20 08:45:36 Office Visit Kenya Fuentes [facility] 1.2.114 350.1.13.10 4.2.7.2.686 [id number] [facility] 2022-09-23 00:00:00 2022-09-23 00:00:00 Telephone Kenya Fuentes [facility] 1..114 350.1.13.10 4.2.7.2.686 [id number] [facility] 2022-09-17 13:39:39 2022-09-17 23:59:00 Outpatient R KENYA FUENTES [facility] [id number] [facility] 2022-09-17 13:39:39 2022-09-17 23:59:00 Hospital Encounter Kenya Fuentes [facility] 1..114 350.1.13.10 4.2.7.2.686 [id number] [facility] 2022-09-16 00:00:00 2022-09-16 00:00:00 Orders Only Doctor Unassigned, [place] [facility] 1..114 350.1.13.10 4.2.7.2.686 [id number] [facility] 2022-09-05 14:00:00 2022-09-05 14:51:04 Outpatient R KENYA FUENTES [facility] [id number] [facility] 2022-09-05 14:00:00 2022-09-05 14:51:04 Office Visit Kenya Fuentes [facility] 1.284.114 350.1.13.10 4.2.7.2.686 [id number] [facility] 2022-09-05 00:00:00 2022-09-05 00:00:00 Orders Only Doctor Unassigned, [place] [facility] 1.2.840.114 350.1.13.10 4.2.7.2.686 [id number] [facility] 2022-09-03 00:00:00 2022-09-03 00:00:00 Transition of Care Marilu Steiner 1.2.840.114 350.1.13.10 4.2.7.2.686 [id number] [facility] 2022-09-02 23:43:00 2022-09-02 23:56:00 Emergency X TRINIDAD ESTRADA [facility] ERT [id number] [facility] 2022-09-02 23:43:00 2022-09-02 23:56:00 Emergency Trinidad Estrada [facility] 1.2840.114 350.1.13.10 4.2.7.2.686 [id number] [facility] 2022-08-30 22:42:00 2022-09-02 15:34:00 Inpatient X MICHAEL ASHRAF [facility] MOOSE [id number] [facility] 2022-08-30 22:42:00 2022-09-02 15:34:00 Hospital Encounter Campbell Guerrero, Michael Patel [facility] 1.2840.114 350.1.13.10 4.2.7.2.686 [id number] [facility] 2020-08-21 00:00:00 2020-08-21 00:00:00 Orders Only Doctor Unassigned, [place] [facility] 1.2.840.114 350.1.13.10 4.2.7.2.686 [id number] 2020-08-21 00:00:00 2020-08-21 00:00:00 Orders Only Doctor Unassigned, [place] [facility] 1.2.840.114 350.1.13.10 4.2.7.2.686 [id number] [facility] 2019-12-08 13:05:19 2019-12-08 14:05:19 Office Visit [facility] 1.2.840.114 350.1.13.10 4.2.7.2.686 [id number] 2019-12-08 13:05:19 2019-12-08 14:05:19 Office Visit [facility] 1.2.840.114 350.1.13.10 4.2.7.2.686 [id number] [facility] 2019-12-08 13:15:00 2019-12-08 13:15:00 Outpatient R SVETLANALINHKosta [facility] [id number] [facility] 2019-10-20 13:00:00 2019-10-20 13:00:00 Appointdena palencia; JAZMYN ESPINAL M.D. MEMON, SABA, M.D. [facility] [id number] [facility] 2019-07-20 13:00:00 2019-07-20 13:00:00 JAZMYN Martin M.D. MEMON, SABA, M.D. [facility] Psychiatry Outpatient Clinic - [facility] [id number] [facility] 2019-06-08 00:00:00 2019-06-08 00:00:[address] [facility] 1.2.840.114 350.1.13.10 4.2.7.2.686 [id number] [facility] 2019-02-24 10:00:00 2019-02-24 10:00:00 Appointdena tJAZMYN RANDLE M.D. MEMON, SABA, M.D. [facility] [id number] [facility] 2019-02-07 10:20:00 2019-02-07 10:20:00 CHANCE Smith APRN WILLIAMSON, TIFFINY, APRN [facility] [id number] [facility] Results Test Description Test Time Test Comments Results Result Co mments Source [facility] WITH [id number] 11:03:17* Test Item Value Reference Range Interpretation [...] g/dL 31.2-35.0 H RDW-SD (test code = 02396-3) 41.7 fL 38.5-51.6 RDW-CV (test code = 788-0) 13.2 % 12.1-15.4 PLT (test code = 777-3) See_Comment [Automated messa ge] The system which generated this result transmitted reference range: 150 - 328 10*3/?L. The reference range was not used to interpret this result as normal/abnormal. MPV (test code = 10877-4) 11.9 fL 9.8-13.0 NRBC/100 WBC (test code = 4960755934) See_Comment [Automated me ssage] The system which generated this result transmitted reference range: 0.0 - 10.0 /100 WBCs. The reference range was not used to interpret this result as normal/abnormal. NRBC x10^3 (test code = 0727877574) See_Comment [Automated messa ge] The system which generated this result transmitted reference range: 10*3/?L. The reference range was not used to interpret this result as normal/abnormal. GRAN MAT (NEUT) % (test code = 770-8) 62.3 % IMM GRAN % (test code = 9469744921) 0.20 % LYMPH % (test code = 736-9) 25.7 % MONO % (test code = 5905-5) 8.0 % EOS % (test code = 713-8) 3.4 % BASO % (test code = 706-2) 0.4 % GRAN MAT x10^3(ANC) (test code = 4834902413) 5.01 10*3/uL 1.99-6.95 IMM GRAN x10^3 (test code = 5415533644) 0.00-0.06 LYMPH x10^3 (test code = 731-0) 2.07 10*3/uL 1.09-3.23 MONO x10^3 (test code = 742-7) 0.64 10*3/uL 0.36-1.02 EOS x10^3 (test code = 711-2) 0.27 10*3/uL 0.06-0.53 BASO x10^3 (test code = 704-7) 0.03 10*3/uL 0.01-0.09 Lab Interpretation (test code = 49124-2) [facility] [id number] 17:58:42* Test Item Value Reference Range Interpretation Comme nts CK (test code = 6892665060) 180 U/L 33-194 Lab Interpretation (test cod e = 43313-8) Normal [facility] [id number] 11:09:00* Test Item Value Reference Range Interpretation Comments TROPONIN I (test code = 8732818501) 0.001 ng/mL See_Comment [Automated message] The system [...] of biotin. Lab Interpretation (test code = 16682-1) Normal [facility]ATE2022-12-04 10:59:14 SALICYLATE<10mg/L111/01/2021 4:59 AM [facility]ORAT[facility] SERVICESTherapeutic Range: ? Analgesic and Antipyretic Use ? 20-100 mg/L ? ? Anti- Inflammatory Use ? 100-250 mg/LToxic Range: ? Greater than 300 mg/[facility]Un[facility] CenterETHANOL2022-12-04 10:59:14ALCOHOL<10mg/dL08/31/2022 4:59 AM [facility] SERVICESToxic Greater than or equal to 80 mg/dL. NOTE: Whole blood values are approximately 10% to 15% lower than serum and plasma.[facility] [id number] 10:59:09* Test Item Value Reference Range Interpretation Comme nts ACETAMINOP (test code = 8676345759) 10.0-30.0 L KACI (test code = KACI) Toxic: Greater mamie n 200 ug/mL @ 4 hour post ingestion or greater than 50 ug/mL @ 12 hour post ingestion Lab Interpretation (test code = 35577-4) Abnormal [facility]2022-12-04 10:58:19* Test Item Value Reference Range Interpretation Comme nts MAGNESIUM (test code = 7387634977) 1.8 mg/dL 1.7-2.4 Lab Interpretation (test cod e = 38846-3) Normal [facility] METABOLIC PANEL (72810)2022-08-31 10:58:18* Test Item Value Reference Range Interpretation Comme nts NA (test code = 6940271773) 141 mmol/L 135-145 K (test code = 4257902193) 4.0 mmol/L 3.5-5.0 CL (test code = 9334101258) 110 mmol/L 98-108 H CO2 TOTAL (test code = 8500121597) 25 mmol/L 23-31 AGAP (test code = 1817646165) 2-16 BUN (test code = 1594473156) 5 mg/dL 7-23 L GLUCOSE (test code = 0081743646) 80 mg/dL 70-110 CREATININE (test code = 4670121681) 0.71 mg/dL 0.60-1.25 TOTAL BILI (test code = 6722032086) 0.5 mg/dL 0.1-1.1 CALCIUM (test code = 0287448047) 7.7 mg/dL 8.6-10.6 L T PROTEIN (test code = 5290836901) 5.2 g/dL 6.3-8.2 L ALBUMIN (test code = 1785985611) 3.3 g/dL 3.5-5.0 L ALK PHOS (test code = 1723270626) 71 U/L 34-122 ALTv (test code = 1742-6) 16 U/L 5-50 AST(SGOT) (test code = 6033389340) 23 U/L 13-40 eGFR (test code = 6400708516) mL/min/1.73m2 KACI (test code = KACI) Association [...] imaging tests). Lab Interpretation (test code = 12359-4) Abnormal [facility] WITH [id number] 09:52:32* Test Item Value Reference Range Interpretation [...] 33.8 g/dL 31.2-35.0 RDW-SD (test code = 14724-9) 41.1 fL 38.5-51.6 RDW-CV (test code = 788-0) 12.9 % 12.1-15.4 PLT (test code = 777-3) See_Comment [Automated message] The system which generated this result transmitted reference range: 150 - 328 10*3/?L. The reference range was not used to interpret this result as normal/abnormal. MPV (test code = 49973-6) 11.1 fL 9.8-13.0 NRBC/100 WBC (test code = 1354298063) See_Comment [Automated message] The system which generated this result transmitted reference range: 0.0 - 10.0 /100 WBCs. The reference range was not used to interpret this result as normal/abnormal. NRBC x10^3 (test code = 8939981027) See_Comment [Automated message] The system which generated this result transmitted reference range: 10*3/?L. The reference range was not used to interpret this result as normal/abnormal. GRAN MAT (NEUT) % (test code = 770-8) 90.1 % IMM GRAN % (test code = 7528283613) 0.40 % LYMPH % (test code = 736-9) 5.4 % MONO % (test code = 5905-5) 3.8 % EOS % (test code = 713-8) 0.1 % BASO % (test code = 706-2) 0.2 % GRAN MAT x10^3(ANC) (test code = 0893133618) 14.75 10*3/uL 1.99-6.95 H IMM GRAN x10^3 (test code = 1871985566) 0.06 10*3/uL 0.00-0.06 LYMPH x10^3 (test code = 731-0) 0.88 10*3/uL 1.09-3.23 L MONO x10^3 (test code = 742-7) 0.62 10*3/uL 0.36-1.02 EOS x10^3 (test code = 711-2) 0.06-0.53 L BASO x10^3 (test code = 704-7) 0.03 10*3/uL 0.01-0.09 Lab Interpretation (test code = 22994-1) [facility]normal [facility] 20 + Lactic [id number] 09:16:12* Test Item Value Reference Range Interpretation Comme nts PH (test code = 2) 7.35-7.45 PCO2 (test code = 7516190602) See_Comment [Automated messa ge] The system which generated this result transmitted reference range: 35 - 45 mmHg. The reference range was not used to interpret this result as normal/abnormal. PO2 (test code = 4709056663) See_Comment H [Automated messa ge] The system which generated this result transmitted reference range: 80 - 100 mmHg. The reference range was not used to interpret this result as normal/abnormal. HCO3 (test code = 4240048990) See_Comment L [Automated messa ge] The system which generated this result transmitted reference range: 22 - 26 mEq/L. The reference range was not used to interpret this result as normal/abnormal. BE (test code = 2326935655) See_Comment L [Automated messa ge] The system which generated this result transmitted reference range: -3.0 - 3.0 mEq/L. The reference range was not used to interpret this result as normal/abnormal. THB (test code = 1109649124) 13.2 g/dL 13.5-18.0 L %O2HB (test code = 3363136581) 98.8 % 94.0-99.0 %COHB ART (test code = 5074577766) 0.3 % 0.0-1.5 %METHB ART (test code = 2563687709) 0.2 % 0.4-1.5 L VOL%O2 ART (test code = 2130538017) 18.8 % 15.0-23.0 NA (test code = 4982675480) 139 mmol/L 135-145 K+ (test code = 9167756850) 3.9 mmol/L 3.5-5.0 AC CA IONZ (test code = 4752060030) 4.60 mg/dL 4.50-5.30 GLUCOSE (test code = 6351422078) 88 mg/dL 70-110 LACTIC ACID (test code = 5876951721) 1.04 mmol/L 0.50-2.20 Lab Interpretation (test code = 77724-2) Abnormal [facility][H] Drug Screen Urine (9 Drugs)2019-07-20 15:46:01* [...] Negative Urine Propoxyphene Screen (test code = 27173-1) Negative Negative Urine Drug Screen Note (test [...] 50 ng/mLMethadone 300 ng/mLUrine alcohol 20 mg/dL [facility][H] Drug Screen Urine (9 Drugs)2019-02-24 13:44:01* [...] Negative Urine Propoxyphene Screen (test code = 82644-8) Negative Negative Urine Drug Screen Note (test [...] 50 ng/mLMethadone 300 ng/mLUrine alcohol 20 mg/dL [facility]"
[2023-12-03 09:48] LABS: Barbiturates NEGATIVE (NEGATIVE); Benzodiazepines POSITIVE (NEGATIVE); Cocaine POSITIVE (NEGATIVE); METHAMPHETAM NEGATIVE (NEGATIVE); Methadone NEGATIVE (NEGATIVE); Opiates NEGATIVE (NEGATIVE); Phencyclidine NEGATIVE (NEGATIVE); THC Cannibis POSITIVE (NEGATIVE)
[2023-12-03 09:49] LABS: Absolute Basophils 0.1 K/uL (0-0.5); Absolute Lymphocytes (CBC) 1.9 K/uL (0.7-4.9); Basophils % 0.9 % (0-1.3); Hematocrit 35.5 % (39.6-49.0); Lymphocytes % 31.7 % (15.3-44.8); MCV 88.1 fL (80-100); MPV 9.2 fL (7.6-11.3); Platelets 193 thou/uL (152-406); RBC Red Blood Cell Count 4.03 M/uL (4.33-5.43)
[2023-12-03 09:53] LABS: Protime INR 1.06
[2023-12-03 10:08] LABS: ALT/SGPT 32 U/L (16-61); AST/SGOT 24 U/L (15-37); Albumin 3.8 g/dL (3.4-5.0); Albumin/Globulin Ratio 1.4 (1.1-1.8); Alkaline Phosphatase 120 U/L (45-117); Anion Gap 7.1 mEq/L (5.0-15.0); BUN Blood Urea Nitrogen 10 mg/dL (7-18); Bicarbonate 31 mEq/L (21-32); Bilirubin Direct 0.2 mg/dL (0-0.2); Bilirubin Indirect, Calculated 0.2 mg/dL (0.2-0.8); Bilirubin Total 0.4 mg/dL (0.2-1.0); Glomerular Filtration Rate 125 ml/min (=/>90); Glucose Level 108 mg/dL (74-106); Potassium 3.1 mEq/L (3.5-5.1); Protein, Total 6.5 g/dL (6.4-8.2); Sodium Level 140 mEq/L (136-145)
--- NOTE | 2023-12-03 13:43 | ER ---
Nurse's Notes [facility] Name: Chan Gale Age: 23 yrs Sex: Male : 2000 Arrival Date: 12/03/2023 Time: 08:50 Bed 14 Private MD: Diagnosis: Benzo overdose;Cocaine abuse;Cannabis abuse Presentation: 12/02 09:02 Chief complaint: EMS states: Pt took a handful of Robaxin and benzo's one hour prior to rs5 arrival. 09:02 Coronavirus screen: At this time, the client does not indicate any symptoms associated rs5 with coronavirus-19. Ebola Screen: No symptoms or risks identified at this time. Risk Assessment: Do you want to hurt yourself or someone else? Patient reports no desire to harm self or others. Onset of symptoms was December 03, 2023. 09:02 Method Of Arrival: EMS: [facility] rs5 09:02 Acuity: SIRISHA 3 rs5 09:51 Initial Sepsis Screen: Does the patient meet any 2 criteria? No. Patient's initial kd3 sepsis screen is negative. Does the patient have a suspected source of infection? No. Patient's initial sepsis screen is negative. Triage Assessment: 09:51 General: Appears in no apparent distress. slender. kd3 Historical: - Allergies: 09:11 No Known Allergies; rs5 - PMHx: 09:11 adhd; Anxiety; avoident restrictive food intact disorder; Bipolar disorder; Depression; rs5 drug abuse; - PSHx: 09:11 None; rs5 - Immunization history:: Adult Immunizations unknown. - Social history:: Smoking status: unknown. Screenin:51 [facility] [place] ED Fall Risk Assessment (Adult) History of falling in the last 3 months, kd3 including since admission No falls in past 3 months (0 pts) Confusion or Disorientation Yes (5 pts) Intoxicated or Sedated Yes (3 pts) Impaired Gait No (0 pts) Mobility Assist Device Used No (0 pt) Altered Elimination No (0 pt) Score/Fall Risk Level 3 or more points = High Risk Oriented to surroundings, Maintained a safe environment, Educated pt \T\ family on fall prevention, incl call for assistance when getting out of bed, Assessed \T\ reinforced patient's understanding of fall precautions, Provided non-skid footwear, Hourly rounding (assess needs \T\ fall precautionary measures) done, Implemented a Fall Risk Plan of Care, Apply high fall risk patient identification: yellow non skid footwear/ fall signage. Abuse screen: Denies threats or abuse. Denies injuries from another. Nutritional screening: No deficits noted. Tuberculosis screening: No symptoms or risk factors identified. Assessment: 09:07 General: Pt seen independently ambulatory to the restroom for a urine sample, standby kd3 assist by RN due to unsteady gate. . 09:46 General: Appears in no apparent distress. Behavior is cooperative, drowsy. General: Pt kd3 returned to the stretcher after using the restroom, pt provided with warm blankets for comfort. Pt denies SI at this time. Pt falls asleep quickly and is unable to stay awake without stimulation. Pt placed on 2 liters nasal canula for support and placed on continuous monitoring. Pt vital signs are stable. Pt's curtain to his room is open for direct nurse visualization from the nurses station. Pt's lights dimmed for comfort, pt's bed is at a 30 degree angle to support respiratory efforts. IV access obtained in the right forearm, blood collected, urine sent to the lab. . Pain: Denies pain. Neuro: Level of Consciousness is obeys commands, drowsy . Oriented to person, place, time, situation. Cardiovascular: Patient's skin is warm and dry. Respiratory: Airway is patent Trachea midline Respiratory effort is even, unlabored, Respiratory pattern is regular, symmetrical. Vital Signs: 09:51 BP 108 / 68; Pulse 80; Resp 16; Temp 98.1(O); Pulse Ox 97% on 2 lpm NC; kd3 11:14 BP 112 / 74; Pulse 72; Resp 16; Pulse Ox 99% ; cp4 12:00 BP 106 / 60; Pulse 82; Resp 16; Pulse Ox 98% ; cp4 13:47 BP 117 / 73; Pulse 83; Resp 18; Pulse Ox 98% ; cp4 ED Course: 09:01 Patient arrived in ED. eb 09:07 Aliyah Mcduffie, RN is Primary Nurse. kd3 09:07 Damien Tapia DO is Attending Physician. ms3 09:11 Triage completed. rs5 09:45 Acetaminophen Sent. kd3 09:45 patient's mother called to check on patient/ she has some personal things she's dealing eb with from 10am to 12am/ she will be here as soon as she can. 09:46 BMP Sent. kd3 09:46 CBC with Diff Sent. kd3 09:46 Ethanol Sent. kd3 09:46 Hepatic Function Sent. kd3 09:46 Protime (+inr) Sent. kd3 09:46 Ptt, Activated Sent. kd3 09:46 Salicylate Sent. kd3 09:46 Urine Drug Screen Sent. kd3 09:50 No provider procedures requiring assistance completed. Inserted saline lock: 22 gauge kd3 in right forearm, using aseptic technique. Blood collected. 09:51 Arm band placed on right wrist. kd3 09:52 Patient has correct armband on for positive identification. Provided Education on: fall kd3 risk, monitoring vitals . 10:18 Urine collected: clean catch specimen, clear. [id number] 13:37 Stone Castillo DO is Referral Physician. ms3 13:47 intact, bleeding controlled, No redness/swelling at site. Pressure dressing applied. cp4 Administered Medications: No medications were administered Medication: 09:52 VIS not applicable for this client. kd3 Outcome: 13:42 Discharge ordered by MD. ms3 13:47 Discharged to home ambulatory, cp4 13:47 Condition: stable 13:47 Discharge instructions given to patient, Instructed on discharge instructions, follow up and referral plans. Demonstrated understanding of instructions, follow-up care, 13:48 Patient left the ED. cp4 Signatures: Rosetta Lewis Marcus, DO DO ms3 Aliyah Mcduffie RN RN kd3 Freddie Ramirez RN RN rs5 Estella Montelongo cp4 Mark Conner [email or web address]
--- NOTE | 2023-12-03 13:43 | EDPHYS ---
Physician Documentation [facility] Name: Chan Gale Age: 23 yrs Sex: Male : 2000 Arrival Date: 12/03/2023 Time: 08:50 Bed 14 Private MD: ED Physician Damien Tapia HPI: 12/02 13:48 This 23 yrs old Male presents to ER via EMS with unknown complaint. ms3 13:48 23-year-old male with past medical history of ADHD, anxiety, bipolar disorder, ms3 depression, drug abuse presents to the emergency department via [place] [facility] status post drug overdose. EMS notes patient's mother noted patient to take a handful of his Ativan pills. Patient states he was attempting to get high. Patient denies suicidal ideation, homicidal ideation, hallucinations. Patient denies pain. Historical: - Allergies: 09:11 No Known Allergies; rs5 - PMHx: 09:11 adhd; Anxiety; avoident restrictive food intact disorder; Bipolar disorder; Depression; rs5 drug abuse; - PSHx: 09:11 None; rs5 - Immunization history:: Adult Immunizations unknown. - Social history:: Smoking status: unknown. ROS: 13:48 Constitutional: Negative for fever, and chills. ENT: Negative for injury, pain, and ms3 discharge, Neck: Negative for injury, pain, and swelling, Cardiovascular: Negative for chest pain, and palpitations. Respiratory: Negative for shortness of breath, cough, wheezing, and pleuritic chest pain, Abdomen/GI: Negative for abdominal pain, nausea, vomiting, diarrhea, and constipation, MS/Extremity: Negative for injury and deformity, Skin: Negative for injury, rash, and discoloration, Exam: 09:09 ECG was reviewed by the Attending Physician. ms3 13:48 Constitutional: This is a well developed, well nourished patient who is awake, alert, ms3 and in no acute distress. Head/Face: Normocephalic, atraumatic. Neck: Trachea midline, no cervical lymphadenopathy. Supple, full range of motion without nuchal rigidity, or vertebral point tenderness. No Meningismus. Chest/axilla: Normal chest wall appearance and motion. Nontender with no deformity. Cardiovascular: Regular rate and rhythm with a normal S1 and S2. No gallops, murmurs, or rubs. Normal PMI, no JVD. No pulse deficits. Respiratory: Lungs have equal breath sounds bilaterally, clear to auscultation and percussion. No rales, rhonchi or wheezes noted. No increased work of breathing, no retractions or nasal flaring. Abdomen/GI: Soft, non-tender, with normal bowel sounds. No distension or tympany. No guarding or rebound. No evidence of tenderness throughout. Back: No spinal tenderness. No costovertebral tenderness. Full range of motion. 13:48 Musculoskeletal/extremity: Right knee and right elbow abrasion. Vital Signs: 09:51 BP 108 / 68; Pulse 80; Resp 16; Temp 98.1(O); Pulse Ox 97% on 2 lpm NC; kd3 11:14 BP 112 / 74; Pulse 72; Resp 16; Pulse Ox 99% ; cp4 12:00 BP 106 / 60; Pulse 82; Resp 16; Pulse Ox 98% ; cp4 13:47 BP 117 / 73; Pulse 83; Resp 18; Pulse Ox 98% ; cp4 MDM: 09:07 Patient medically screened. ms3 13:48 Differential diagnosis: polypharmacy, over medication, Prescription drug overdose. Data ms3 reviewed: vital signs, nurses notes, lab test result(s), and as a result, I will discharge patient. Independent interpretation of the following test(s) in the Emergency Department EKG: See my EKG interpretation above. Historians other than the Patient: EMS: On reevaluation patient is alert and orient x 4, no apparent distress, nontoxic-appearing. Patient again denies homicidal ideation, suicidal ideation, or hallucinations. Patient states he would like to be discharged at this time. Patient to follow-up with primary care physician in 2 to 3 days. All questions were answered. Return precautions discussed include worsening symptoms, or any other concerns.. 13:58 Counseling: I had a detailed discussion with the patient and/or guardian regarding the ms3 historical points, exam findings, and any diagnostic results supporting the discharge/admit diagnosis, lab results, the need for outpatient follow up, to return to the emergency department if symptoms worsen or persist or if there are any questions or concerns that arise at home. ED course: . 12/02 09:07 Order name: Acetaminophen; Complete Time: 10:34 ms3 12/02 09:07 Order name: BMP; Complete Time: 10:34 ms3 12/02 09:07 Order name: CBC with Diff; Complete Time: 10:34 ms3 12/02 09:07 Order name: Ethanol; Complete Time: 10:34 ms3 12/02 09:07 Order name: Hepatic Function; Complete Time: 10:34 ms3 12/02 09:07 Order name: Protime (+inr); Complete Time: 10:34 ms3 12/02 09:07 Order name: Ptt, Activated; Complete Time: 10:34 ms3 12/02 09:07 Order name: Salicylate; Complete Time: 10:34 ms3 12/02 09:07 Order name: Urine Drug Screen; Complete Time: 10:34 ms3 12/02 09:07 Order name: EKG; Complete Time: 09:08 ms3 12/02 09:07 Order name: EKG - Nurse/Tech; Complete Time: 09:29 ms3 12/02 09:07 Order name: IV Saline Lock; Complete Time: 09:45 ms3 12/02 09:07 Order name: Labs collected and sent; Complete Time: 09:45 ms3 12/02 09:07 Order name: O2 Per Protocol; Complete Time: 09:45 ms3 12/02 09:07 Order name: O2 Sat Monitoring; Complete Time: 09:45 ms3 EC:09 Rate is 84 beats/min. Rhythm is regular. QRS [place] is Normal. SC interval is normal. QRS ms3 interval is normal. Clinical impression: NSR w/ Non-specific ST/T Changes. Interpreted by me. Reviewed by me. Administered Medications: No medications were administered Disposition Summary: 12/03/23 13:42 Discharge Ordered Notes: Location: Home ms3 Condition: Stable ms3 Diagnosis - Benzo overdose ms3 - Cocaine abuse ms3 - Cannabis abuse ms3 Followup: ms3 - With: Stone Castillo DO - When: 2 - 3 days - Reason: Recheck today's complaints Discharge Instructions: - Discharge Summary Sheet ms3 - Illegal Drug Use Information, Adult ms3 Forms: - Work release form eb - Medication Reconciliation Form ms3 - Thank You Letter ms3 - Antibiotic Education ms3 - Prescription Opioid Use ms3 - Patient Portal Instructions ms3 - Leadership Thank You Letter ms3 Signatures: Dispatcher [employer] Damien Hodgson DO DO ms3 Freddie Ramirez, RN RN rs5
[2023-12-03 13:55] VITALS: TEMP 98.1
[2023-12-03 14:30] VITALS: BP 117/73; O2SAT 98
== END ==
LOC: ER 08:50
DX: T42.4X1A Poisoning by benzodiazepines, accidental (unintentional), initial encounter (principal); F14.10 Cocaine abuse, uncomplicated; F12.10 Cannabis abuse, uncomplicated; F31.9 Bipolar disorder, unspecified
CPT/HCPCS: 36415; 80048; 80076; 80143; 80179; 80307; 82077; 85025; 85610; 85730; 93005; 99284

== ENCOUNTER 2024-02-04 19:03 | Emergency (ER) | payer OTHER ==
--- OUTSIDE RECORDS SUMMARY | 2024-02-04 19:07 | XMS REPORT | Continuity of Care Document ---
Author Name Unknown Address [address] [facility] [address] [place] [address] [facility] Address [address] [facility] 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 Ayaan Yung DO Attending Clinician [phone] Michael Ashraf DO Attending Clinician [phone] Jorge PHD, Kim Alicea Attending Clinician [phone] KIM PATEL Attending Clinician UnavailJAZMYN Spence M.D. Attending Clinician UnavailCHANCE Lima APRN Attending Clinician Un available KENYA FUENTES Admitting Clinician Unavailable CAMPBELL GUERRERO Admitting Clinician Unava ilable Ayaan Yung DO Admitting Clinician Payers Payer Name Policy Type Policy Number Effective Date Expirati on Date Source [facility] [id number] 2018 00:00:00 Problems Condition Name Condition Details Condition Category Status Onset Date Resolution Date Last Treatment Date Treating Clinician Comments Source Need for hepatitis C screening test Need for hepatitis C screening test Disease Active 10-20 00:00: 00 [facility] Low bone density for age Low bone density for age Disease Active 10-20 00:00: 00 [facility] Encounter to establish care Encounter to establish care Disease Active 2021-09 00:00: 00 [facility] RLS (restless legs syndrome) RLS (restless legs syndrome) Disease Active 2021-09 00:00: 00 [facility] BMI less than 19,adult BMI less than 19,adult Disease Active 2021-09 00:00: 00 [facility] Drug overdose of undetermin ed intent, initial encounter Drug overdose of undetermin ed intent, initial encounter Disease Active 2021-09 00:00: 00 [facility] Bipolar 1 disorder, mixed anxiety-de pression, moderate Bipolar 1 disorder, mixed anxiety-de pression, moderate Disease Recurre nce 2018-02-23 00:00: 00 [facility] Anxiety Anxiety Disease Active 02-23 00:00: 00 [facility] Underweigh t in childhood with BMI < 5th percentile Underweigh t in childhood with BMI < 5th percentile Disease Active 2017-09 00:00: 00 [facility] 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 Disease Active 04-19 00:00: 00 [facility] 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 Disease Active 04-19 00:00: 00 [facility] Nicotine abuse Nicotine abuse Disease Active 01-10 00:00: 00 [facility] Marijuana abuse, continuous Marijuana abuse, continuous Disease Active 2017-0 4-15 00:00: 00 [facility] Attention deficit hyperactiv ity disorder (ADHD) Attention deficit hyperactiv ity disorder (ADHD) Disease Recurre nce 2006- 1-19 00:00: 00 [facility] Sensory processing difficulty Sensory processing difficulty Problem [...] NO KNOWN ALLERGIE S Drug Class Active [facility] Social History Social Habit Start Date Stop Date Quantity Comments Source Exposure to SARS-CoV-2 (event) 2022-11-18 00:00:00 2022-11-28 11:48:00 Not sure [facility] Alcohol intake 2022-10-20 00:00:00 2022-10-20 00:00:00 Current non-drinker of alcohol (finding) [facility] Tobacco Comment 2022-09-05 00:00:00 2022-09-05 00:00:00 Vapes [facility] Tobacco use and exposure 2022-09-05 00:00:00 2022-09-05 00:00:00 Smokeless tobacco non-user [facility] Cigarettes smoked current (pack per day) - Reported 2022-09-05 00:00:00 2022-09-05 00:00:00 [facility] History of tobacco use 2018-07-08 00:00:00 Cigarette Smoker [facility] Sex Assigned At 2002 00:00:00 2000 00:00:00 [facility] Smoking Status Start Date Stop Date Source Never smoked tobacco (finding) [facility] Smokes tobacco daily 2022-09-05 00:00:00 [facility] Ex-smoker 2022-09-01 00:00:00 2022-09-01 00:00:00 [facility] Medications Ordered Medication Name Filled Medication Name Start Date Stop Date Current Medication? Ordering Clinician Indication Dosage Frequency Signature (SIG) Comments Components Source ondansetron (ZOFRAN) 4 mg tablet 12-02 00:00: 00 12-13 04:59 :00 No [id number] 4mg Take 1 tablet by mouth every 8 (eight) hours as needed for Nausea and Vomiting (N/V) for up to 10 days. [facility] OXcarbazepi ne 600 mg tablet 2021-09 14:31: 18 09-05 00:00 :00 No 600mg Take 600 mg by mouth 2 (two) times daily. [facility] LORazepam 1 mg Cp24 2021-09 14:27: 07 09-05 00:00 :00 No 1mg Take 1 mg by mouth 2 (two) times daily. [facility] olanzapine (ZYPREXA ORAL) 2021-09 14:26: 27 Yes Take by mouth 2 (two) times daily. Prescribed by [facility] Apr 2019 [facility] gabapentin 600 mg tablet 2021-09 14:26: 27 Yes 600mg Take 600 mg by mouth in the morning and 600 mg at noon and 600 mg in the evening. [facility] SERTraline 100 mg tablet 2021-09 14:19: 22 09-05 00:00 :00 No 100mg Take 100 mg by mouth daily. [facility] nicotine (NICODERM) 21 mg/24 hr patch 1 Patch 2021-09 19:45: 00 Yes 1{patch } 1 Patch, Topical, Administer over 24 Hours, Q24H, First dose on Thu09/02/22 at 1345, Until Discontinu ed, Routine [facility] hydrOXYzine (ATARAX) tablet 10 mg 2021-09 19:30: 00 09-02 18:49 :00 No 10mg 10 mg, Oral, ONCE, 1 dose, On Thu09/02/22 at 1330, Routine [facility] gabapentin 600 mg tablet 2021-09 17:34: 50 Yes 600mg Take 600 mg by mouth in the morning and 600 mg at noon and 600 mg in the evening. [facility] OXcarbazepi ne 600 mg tablet 2021-09 15:34: 48 Yes 600mg Take 600 mg by mouth 2 (two) times daily. [facility] SERTraline 100 mg tablet 2021-09 15:34: 48 Yes 100mg Take 100 mg by mouth daily. [facility] olanzapine (ZYPREXA ORAL) 2021-09 15:34: 48 Yes Take by mouth 2 (two) times daily. [facility] LORazepam 1 mg Cp24 2021-09 15:34: 48 Yes 1mg Take 1 mg by mouth 2 (two) times daily. [facility] gabapentin 600 mg tablet 2021-09 15:34: 48 Yes 600mg Take 600 mg by mouth in the morning and 600 mg at noon and 600 mg in the evening. [facility] LORazepam (ATIVAN) tablet 1 mg 2021-09 15:00: 00 Yes 1mg 1 mg, Oral, QAM, First dose on Thu09/02/22 at 0900, Until Discontinu ed, Routine [facility] OLANZapine (ZyPREXA) tablet 15 mg 2021-09 03:00: 00 Yes 15mg 15 mg, Oral, QHS, First dose on Thu09/01/22 at 2100, Until Discontinu ed, [facility] PARox[facility] (PAXIL) tablet 20 mg 2021-09 03:00: 00 Yes 20mg 20 mg, Oral, QHS, First dose on Thu09/01/22 at 2100, Until Discontinu ed, Routine [facility] gabapentin (NEURONTIN) tablet 600 mg 2021-09 02:00: 00 Yes 600mg 600 mg, Oral, TID, First dose on Thu09/01/22 at 2000, Until Discontinu ed, Routine [facility] acetaminoph en (TYLENOL) tablet 325 mg 2021-09 23:49: 00 09-02 00:20 :00 No 325mg 325 mg, Oral, ONCE, 1 dose, On Thu09/01/22 at 1800, Routine [facility] clonazePAM (KLONOPIN) tablet 1 mg 2021-09 16:15: 00 Yes 1mg 1 mg, Oral, Q8H, First dose (after last modificati on) on Thu09/01/22 at 1015, Until Discontinu ed, Routine [facility] ketamine (KETALAR) injection 50 mg 2021-09 23:30: 00 08-31 07:04 :00 No 50mg 50 mg, Slow IV Push, ONCE, 1 dose, On Thu08/31/22 at 1730, Routine [facility] clonazePAM 0.1 mg/mL oral suspension 1 mg 2021-09 20:00: 00 09-01 14:29 :11 No 1mg 1 mg, Oral, TID, First dose on Thu08/31/22 at 1400, Until Discontinu ed, Routine [facility] midazolam (VERSED) STD 50mg in NaCl 0.9% (NS) 50 mL infusion RTU 2021-09 16:14: 18 09-01 11:18 :51 No 1mg/h 1-10 mg/hr (1-10 mL/hr), IV Infusion, TITRATE, Sedation-R ASS score (0 to -1), Sedation-R ASS score (-2 to -3), If too agitated may use a rass of -3, Starting on Thu08/31/22 at 1014
In itiate infusion at 1 mg/hr and titrate by 1 mg/hr every 3 minutes to 10 minutes to goal sedation score. Maximum dose = 10 mg/hr.&nbs p; If goal not maintained at maximum allowed dose, contact prescriber .
[facility] enoxaparin (LOVENOX) injection 40 mg 2021-09 15:00: 00 Yes 40mg 40 mg, Subcutaneo us, DAILY, First dose on Thu08/31/22 at 0900, Until Discontinu ed, Routine [facility] dexMEDEtomi dine 200 mcg in 0.9 % NaCl 50 mL (PRECEDEX) RTU IV infusion 2021-09 14:33: 19 09-02 00:39 :35 No .2ug/kg /h 0.2-1.5 mcg/kg/hr ?61 kg (3.05-22.8 75 mL/hr, rounded to 3.05-22.88 mL/hr), IV Infusion, TITRATE, Sedation-R ASS score (0 to -1), Starting on Cornish 08/31/22 at 0833
In itiate infusion at 0.2 mcg/kg/hr and titrate by 0.1 mcg/kg/hr every 30 minutes to goal sedation score. Maximum dose = 1.5 mcg/kg/hr. If goal not maintained at maximum allowed dose, contact prescriber .
[facility] fentaNYL PF (SUBLIMAZE) STD 2,500 mcg in NaCl 0.9% (NS) 250 mL infusion RTU 2021-09 08:03: 47 09-01 11:18 :51 No 25ug/h 25-200 mcg/hr (2.5-20 mL/hr), IV Infusion, TITRATE, CPOT/Pain Scale Goals Determined by Provider, Starting on Cornish 08/31/22 at 0203
In itiate infusion at 25 mcg/hr. Titrate by 25 mcg/hr every 1 minute to 15 minutes to identified goal pain and/or sedation scores. Maximum dose = 200 mcg/hr. If goal not maintained at maximum allowed dose, contact prescriber .
[facility] FENTanyl PF (SUBLIMAZE (PF)) injection 50 mcg 2021-09 08:00: 00 08-31 07:14 :00 No 50ug 50 mcg, Slow IV Push, ONCE, 1 dose, On Thu08/31/22 at 0200, Routine [facility] propofoL IV infusion 2021-09 07:24: 17 08-31 07:09 :53 No 5ug/kg/ min 5-50 mcg/kg/min ?61 kg (1.83-18.3 mL/hr), IV Infusion, TITRATE, Sedation-R ASS score (0 to -1), Starting on Thu08/31/22 at 0124
In itiate infusion at 5 mcg/kg/min and titrate by 5 mcg/kg/min every 30 seconds to 10 minutes to goal sedation score. Maximum dose = 50 mcg/kg/min . If goal not maintained at maximum allowed dose, contact prescriber . &nbs p;Tubing and unused portions of vials should be discarded after 12 hours.
[facility] lactated ringers IV infusion 1,000 mL 2021-09 07:15: 00 08-31 07:00 :00 No 1000mL at 999 mL/hr, 1,000 mL, Intravenou s, ONCE, 1 dose, On Cornish 08/31/22 at 0115, Routine [facility] midazolam (VERSED) STD 50mg in NaCl 0.9% (NS) 50 mL infusion RTU 2021-09 06:26: 10 08-31 16:14 :53 No 1mg/h 1-10 mg/hr (1-10 mL/hr), IV Infusion, TITRATE, Sedation-R ASS score (0 to -1), Starting on Thu08/31/22 at 0026
In itiate infusion at 1 mg/hr and titrate by 1 mg/hr every 3 minutes to 10 minutes to goal sedation score. Maximum dose = 10 mg/hr.&nbs p; If goal not maintained at maximum allowed dose, contact prescriber .
[facility] gabapentin 300 mg/6 mL (6 mL) solution 2021-09 23:09: 11 08-30 00:00 :00 No Take by mouth 2 (two) times daily. prescribed at [facility] no summer 2018 [facility] PARoxetine 20 mg tablet 2021-09 00:00: 00 Yes 20mg Take 20 mg by mouth in the morning. [facility] LORazepam 1 mg tablet 2021-09 00:00: 00 Yes 1mg Take 1 mg by mouth in the morning. [facility] SERTraline 100 mg tablet 10-22 18:52: 12 Yes 100mg Take 100 mg by mouth daily. Prescribed by [facility] - Apr 2019 [facility] olanzapine (ZYPREXA ORAL) 10-22 18:52: 09 Yes Take by mouth 2 (two) times daily. Prescribed by [facility] Apr 2019 [facility] gabapentin 300 mg/6 mL (6 mL) solution 10-22 18:52: 07 Yes Take by mouth 2 (two) times daily. prescribed at [facility] no summer 2018 [facility] OXcarbazepi ne (TRILEPTAL) 600 mg tablet 10-22 18:52: 06 Yes 600mg Take 600 mg by mouth 2 (two) times daily. [facility] Sertraline HCl - 50 MG Oral Tablet Sertraline HCl - 50 MG Oral Tablet 10-20 00:00: 00 Yes JAZMYN TEDDY M.D. Take 25 mg po daily x 15 days and then increase it to 50 mg po daily [facility] Sertraline HCl - 100 MG Oral Tablet Sertraline HCl - 100 MG Oral Tablet 2018-09 00:00: 00 Yes JAZMYN TEDDY M.D. 1 QD TAKE ONE (1) TABLET(S) BY MOUTH ONCE A DAY. [facility] OLANZapine 10 MG Oral Tablet OLANZapine 10 MG Oral Tablet 2018-09 00:00: 00 Yes JAZMYN TEDDY M.D. 1 TAKE 1 TABLET AT BEDTIME. [facility] Gabapentin 300 MG Oral Capsule Gabapentin 300 MG Oral Capsule 2018-09 00:00: 00 Yes JAZMYN TEDDY M.D. Q0.3333D TAKE 1 CAPSULE 3 TIMES DAILY. [facility] OXcarbazepi ne 300 MG Oral Tablet OXcarbazepi ne 300 MG Oral Tablet 06-13 00:00: 00 Yes JAZMYN TEDDY M.D. Q0.5D TAKE ONE (1) TABLET(S) BY MOUTH TWICE A DAY. [facility] busPIRone 15 mg tablet 03-03 00:00: 00 Yes [id number] 15mg Take 1 tablet by mouth 2 (two) times daily. [facility] DULoxetine 60 mg capsule 03-01 00:00: 00 Yes [id number] 60mg Take 1 capsule by mouth daily. [facility] DULoxetine 30 mg capsule 03-01 00:00: 00 Yes [id number] 30mg Take 1 capsule by mouth daily. [facility] OXcarbazepi ne (TRILEPTAL) 600 mg tablet 02-23 19:48: 44 Yes 600mg Take 600 mg by mouth 2 (two) times daily. [facility] traZODONE 50 mg tablet 02-23 00:00: 00 Yes [id number] 25mg Take 0.5 tablets by mouth 2 (two) times daily. [facility] Multi-Vitam in TABS Multi-Vitam in TABS Yes M.A. [facility] Vital Signs Vital Name Observation Time Observation Value Comments S ource Systolic blood pressure 2022-11-28 17:50:00 104 mm[Hg] [facility] Diastolic blood pressure 2022-11-28 17:50:00 52 mm[Hg] [facility] Heart rate 2022-11-28 17:50:00 106 /min [facility] Body height 2022-11-28 17:50:00 172.7 cm [facility] Body weight 2022-11-28 17:50:00 62.551 kg [facility] BMI 2022-11-28 17:50:00 20.97 kg/m2 [facility] Oxygen saturation in Arterial blood by Pulse oximetry 2022-11-28 17:50:00 93 /min [facility] Systolic blood pressure 2022-10-20 14:09:00 108 mm[Hg] [facility] Diastolic blood pressure 2022-10-20 14:09:00 65 mm[Hg] [facility] Heart rate 2022-10-20 14:09:00 95 /min [facility] Body temperature 2022-10-20 14:09:00 37.06 Jeana [facility] Body height 2022-10-20 14:09:00 172.7 cm [facility] Body weight 2022-10-20 14:09:00 58.968 kg [facility] BMI 2022-10-20 14:09:00 19.77 kg/m2 [facility] Oxygen saturation in Arterial blood by Pulse oximetry 2022-10-20 14:09:00 98 /min [facility] Systolic blood pressure 2022-09-05 20:22:00 101 mm[Hg] [facility] Diastolic blood pressure 2022-09-05 20:22:00 64 mm[Hg] [facility] Heart rate 2022-09-05 20:22:00 62 /min [facility] Body temperature 2022-09-05 20:22:00 36.33 Jeana [facility] Body height 2022-09-05 20:22:00 172.7 cm [facility] Body weight 2022-09-05 20:22:00 56.337 kg [facility] BMI 2022-09-05 20:22:00 18.88 kg/m2 [facility] Oxygen saturation in Arterial blood by Pulse oximetry 2022-09-05 20:22:00 97 /min [facility] Systolic blood pressure 2022-09-03 05:40:00 110 mm[Hg] [facility] Diastolic blood pressure 2022-09-03 05:40:00 81 mm[Hg] [facility] Heart rate 2022-09-03 05:40:00 64 /min [facility] Body temperature 2022-09-03 05:40:00 37.22 Jeana [facility] Respiratory rate 2022-09-03 05:40:00 18 /min [facility] Body height 2022-09-03 05:40:00 172.7 cm [facility] Body weight 2022-09-03 05:40:00 57.153 kg [facility] BMI 2022-09-03 05:40:00 19.16 kg/m2 [facility] Oxygen saturation in Arterial blood by Pulse oximetry 2022-09-03 05:40:00 100 /min [facility] Systolic blood pressure 2022-09-02 17:17:00 114 mm[Hg] [facility] Diastolic blood pressure 2022-09-02 17:17:00 75 mm[Hg] [facility] Heart rate 2022-09-02 17:17:00 81 /min [facility] Body temperature 2022-09-02 17:17:00 36.61 Jeana [facility] Respiratory rate 2022-09-02 17:17:00 18 /min [facility] Oxygen saturation in Arterial blood by Pulse oximetry 2022-09-02 17:17:00 99 /min [facility] Body weight 2022-09-01 19:40:00 61 kg [facility] BMI 2022-09-01 19:40:00 20.45 kg/m2 [facility] Body height 2022-09-01 19:36:00 172.7 cm [facility] BP Systolic 2019-10-20 12:54:00 118 mm[Hg] Location: RUE; Position: Sitting [facility] BP Diastolic 2019-10-20 12:54:00 53 mm[Hg] Location: RUE; Position: Sitting [facility] Height 2019-10-20 12:54:00 169 cm [facility] Weight 2019-10-20 12:54:00 125 [lb_av] [facility] Body Mass Index Calculated 2019-10-20 12:54:00 19.85 kg/m2 [facility] Heart Rate 2019-10-20 12:54:00 100 /min [facility] BP Systolic 2019-07-20 13:06:00 93 mm[Hg] [...] Rate 2019-02-24 10:04:00 18 /min Quality: Normal [facility] O2 SAT 2019-02-24 10:04:00 100 % [...] Date / Time Performed Performing Clinician Source [facility] PATIENT FINANCIAL POLICY 2022-11-28 17:49:34 Doctor Unassigned, Marley [facility] EXTERNAL PROVIDER RECORDS 2022-11-19 06:01:00 Doctor Unassigned, Marley [facility] DEXA AXIAL (HIP AND SPINE) 2022-09-17 19:58:00 Kenya Fuentes [facility] EXTERNAL PROVIDER RECORDS 2022-09-16 06:01:00 Doctor Unassigned, Marley [facility] ASSIGNMENT OF BENEFITS 2022-09-05 19:47:49 Docto r Unassigned, Marley [facility] COMP. METABOLIC PANEL ([id number]) 2022-09-01 10:44:00 Marilyn Mitchell [facility] CBC WITH DIFF 2022-09-01 10:44:00 [facility] XR CHEST 1 VW 2022-09-01 10:15:00 Johann Cormier [facility] CREATINE KINASE 2022-08-31 09:35:00 Dolly Beasley [facility] MAGNESIUM 2022-08-31 09:35:00 Jael Coppola [facility] TROPONIN I 2022-08-31 09:35:00 Jael Coppola [facility] COMP. METABOLIC PANEL ([id number]) 2022-08-31 09:35:00 Jael Coppola [facility] SALICYLATE 2022-08-31 09:35:00 Jael Coppola [facility] ETHANOL 2022-08-31 09:35:00 Jael Coppola [facility] CBC WITH DIFF 2022-08-31 09:35:00 Jael Coppola [facility] URINE DRUG (IMMUNOASSAY) - COMPREHENSIVE DRUG SCREEN 2022-08-31 09:07:00 Jael Coppola [facility] URINE DRUG (LCMSMS) - COMPREHENSIVE DRUG PANEL 2022-08-31 09:07:00 Jael Coppola [facility] AC PANEL 20 + LACTIC ACID 2022-08-31 09:01:00 Jael Coppola [facility] XR CHEST 1 VW 2022-08-31 05:44:00 Jael Coppola [facility] XR KUB 2022-08-31 05:44:00 Jael Coppola [facility] AUTHORIZATION FOR RELEASE OF PHI 2020-08-21 06:01:00 Doctor Unassigned, Marley [facility] [[facility]] CBC (INCLUDES DIFF/PLT) 2019-10-20 00:00:00 [facility] [[facility]] CMP W/EGFR 2019-10-20 00:00:00 [facility]] LIPID PANEL 2019-10-20 00:00:00 [facility] [QL] TSH, 3RD GENERATION 2019-10-20 00:00:00 [facility] [Q] DRUG SCREEN,COMPREHENSIVE (URINE) 2019-07-20 00:00:00 [facility] [Q] DRUG SCREEN,COMPREHENSIVE (URINE) 2019-02-24 00:00:00 [facility] Encounters Start Date/Time End Date/Time Encounter Type Admission Type Attending Clinicians Care Facility Care Department Encounter ID Source 2023-04-24 11:00:00 2023-04-24 11:00:00 Outpatient DONTA CUEVAS [facility] [id number] [facility] 2022-12-30 00:00:00 2022-12-30 00:00:00 Telephone Donta Haynes [facility] [id number] [facility] 2022-12-03 14:00:00 2022-12-03 14:00:00 Outpatient KENYA CHOUDHARY [facility] [id number] [facility] 2022-12-02 00:00:00 2022-12-02 00:00:00 Telephone Kenya Fuentes [facility] [id number] [facility] 2022-11-28 12:00:00 2022-11-28 13:03:08 Outpatient R DONTA HAYNES [facility] [id number] [facility] 2022-11-28 12:00:00 2022-11-28 13:03:08 Office Visit Donta Haynes [facility] [id number] [facility] 2022-11-28 00:00:00 2022-11-28 00:00:00 Orders Only Doctor Unassigned, Marley [facility] [id number] [id number] [id number] [facility] 2022-11-19 00:00:00 2022-11-19 00:00:00 Orders Only Doctor Unassigned, Marley [facility] [id number] [id number] [id number] [id number] [facility] 2022-10-20 08:00:00 2022-10-20 08:45:36 Outpatient R ALFREDO KENYA [facility] [id number] [facility] 2022-10-20 08:00:00 2022-10-20 08:45:36 Office Visit Alfredo Kenya [facility] [id number] [id number] [id number] [facility] 2022-09-23 00:00:00 2022-09-23 00:00:00 Telephone ChloeKenya garcia [facility] [id number] [id number] [facility] 2022-09-17 13:39:39 2022-09-17 23:59:00 Outpatient R KENYA FUENTES [facility] [id number] [facility] 2022-09-17 13:39:39 2022-09-17 23:59:00 Hospital Encounter ChloeKenya garcia [facility] 1.0.114 350.1.13.10 4.2.7.2.686 [id number] [facility] 2022-09-16 00:00:00 2022-09-16 00:00:00 Orders Only Doctor Unassigned, Marley [facility] 1.20.114 350.1.13.10 4.2.7.2.686 [id number] [facility] 2022-09-05 14:00:00 2022-09-05 14:51:04 Outpatient R KENYA FUENTES [facility] [id number] [facility] 2022-09-05 14:00:00 2022-09-05 14:51:04 Office Visit Kneya Fuentes [facility] 1.84.114 350.1.13.10 4.2.7.2.686 [id number] [facility] 2022-09-05 00:00:00 2022-09-05 00:00:00 Orders Only Doctor Unassigned, Marley [facility] 1..114 350.1.13.10 4.2.7.2.686 [id number] [id number] [facility] 2022-09-03 00:00:00 2022-09-03 00:00:00 Transition of Care Marilu Steiner AYDEE 1.84.114 350.1.13.10 4.2.7.2.686 [id number] [facility] 2022-09-02 23:43:00 2022-09-02 23:56:00 Emergency X TRINIDAD ESTRADA [facility] ERT [id number] [facility] 2022-09-02 23:43:00 2022-09-02 23:56:00 Emergency Trinidad Estrada [facility] 1.84.114 350.1.13.10 4.2.7.2.686 [id number] [facility] 2022-08-30 22:42:00 2022-09-02 15:34:00 Inpatient X MICHAEL ASHRAF [facility] MOOSE [id number] [facility] 2022-08-30 22:42:00 2022-09-02 15:34:00 Hospital Encounter Campbell Guerrero Jaylaabi Yung, Ayaan Ashraf, Michael [facility] 1.2.840.114 350.1.13.10 4.2.7.2.686 [id number] [facility] 2020-08-21 00:00:00 2020-08-21 00:00:00 Orders Only Doctor Unassigned, Marley [facility] 1.2.840.114 350.1.13.10 4.2.7.2.686 [id number] 2020-08-21 00:00:00 2020-08-21 00:00:00 Orders Only Doctor Unassigned, Marley [facility] 1.2.840.114 350.1.13.10 4.2.7.2.686 [id number] [id number] [facility] 2019-12-08 13:05:19 2019-12-08 14:05:19 Office Visit Kim Patel [facility] 1.2.840.114 350.1.13.10 4.2.7.2.686 [id number] 2019-12-08 13:05:19 2019-12-08 14:05:19 Office Visit Kim Patel [facility] 1.2.840.114 350.1.13.10 4.2.7.2.686 [id number] [facility] 2019-12-08 13:15:00 2019-12-08 13:15:00 Outpatient R JORGE [facility] [id number] [facility] 2019-10-20 13:00:00 2019-10-20 13:00:00 Appointmen t; JAZMYN ESPINAL M.D. JAZMYN ESPINAL M.D. [facility] [id number] [place] [facility] 2019-07-20 13:00:00 2019-07-20 13:00:00 Ronnie palencia; JAZMYN ESPINAL M.D. MEMON, SABA, M.D. [facility] Psychiatry Outpatient Clinic - [facility] [id number] [place] [facility] 2019-06-08 00:00:00 2019-06-08 00:00:00 Telephone Kim Patel [facility] 1.2.840.114 350.1.13.10 4.2.7.2.686 [id number] [facility] 2019-02-24 10:00:00 2019-02-24 10:00:00 Ronnie palencia; JAZMYN ESPINAL M.D. MEMON, SABA, M.D. [facility] [id number] [place] [facility] 2019-02-07 10:20:00 2019-02-07 10:20:00 Ronnie palencia; CHANCE VAZQUEZ APRN WILLIAMSON, TIFFINY, APRN [facility] [id number] [facility] Results Test Description Test Time Test Comments Results Result Co mments Source [facility] WITH [id number] 11:03:17* Test Item Value Reference Range Interpretation [...] g/dL 31.2-35.0 H RDW-SD (test code = 83170-0) 41.7 fL 38.5-51.6 RDW-CV (test code = 788-0) 13.2 % 12.1-15.4 PLT (test code = 777-3) See_Comment [Automated toucanBoxa ge] The system which generated this result transmitted reference range: 150 - 328 10*3/?L. The reference range was not used to interpret this result as normal/abnormal. MPV (test code = 68773-1) 11.9 fL 9.8-13.0 NRBC/100 WBC (test code = 6950932580) See_Comment [Automated DesignHub ssage] The system which generated this result transmitted reference range: 0.0 - 10.0 /100 WBCs. The reference range was not used to interpret this result as normal/abnormal. NRBC x10^3 (test code = 4219418883) See_Comment [Automated toucanBoxa ge] The system which generated this result transmitted reference range: 10*3/?L. The reference range was not used to interpret this result as normal/abnormal. GRAN MAT (NEUT) % (test code = 770-8) 62.3 % IMM GRAN % (test code = 0244660084) 0.20 % LYMPH % (test code = 736-9) 25.7 % MONO % (test code = 5905-5) 8.0 % EOS % (test code = 713-8) 3.4 % BASO % (test code = 706-2) 0.4 % GRAN MAT x10^3(ANC) (test code = 8277222802) 5.01 10*3/uL 1.99-6.95 IMM GRAN x10^3 (test code = 0063031789) 0.00-0.06 LYMPH x10^3 (test code = 731-0) 2.07 10*3/uL 1.09-3.23 MONO x10^3 (test code = 742-7) 0.64 10*3/uL 0.36-1.02 EOS x10^3 (test code = 711-2) 0.27 10*3/uL 0.06-0.53 BASO x10^3 (test code = 704-7) 0.03 10*3/uL 0.01-0.09 Lab Interpretation (test code = 35959-5) [facility] [id number] 17:58:42* Test Item Value Reference Range Interpretation Comme nts CK (test code = 1111952784) 180 U/L 33-194 Lab Interpretation (test cod e = 27971-4) Normal [facility] [id number] 11:09:00* Test Item Value Reference Range Interpretation Comments TROPONIN I (test code = 1700945109) 0.001 ng/mL See_Comment [Automated message] The system [...] of biotin. Lab Interpretation (test code = 77164-5) Normal [facility] HospitalSALICYLATE2022-12-04 10:59:14 SALICYLATE<10mg/L111/01/2021 4:59 AM CSTUTMB LABORATORY SERVICESTherapeutic Range: ? Analgesic and Antipyretic Use ? 20-100 mg/L ? ? Anti- Inflammatory Use ? 100-250 mg/LToxic Range: ? Greater than 300 mg/LUnMedical [facility] HospitalETHANOL2022-12-04 10:59:14ALCOHOL<10mg/dL08/31/2022 4:59 AM CSTUTMB LABORATORY SERVICESToxic Greater than or equal to 80 mg/dL. NOTE: Whole blood values are approximately 10% to 15% lower than serum and plasma.[facility] [id number] 10:59:09* Test Item Value Reference Range Interpretation Comme nts ACETAMINOP (test code = 6444808691) 10.0-30.0 L KACI (test code = KACI) Toxic: Greater mamie n 200 ug/mL @ 4 hour post ingestion or greater than 50 ug/mL @ 12 hour post ingestion Lab Interpretation (test code = 22440-6) Abnormal [facility] HospitalMAGNESIUM2022-12-04 10:58:19* Test Item Value Reference Range Interpretation Comme nts MAGNESIUM (test code = 7155243054) 1.8 mg/dL 1.7-2.4 Lab Interpretation (test cod e = 77276-1) Normal [facility] HospitalCOMP. METABOLIC PANEL (12100)2022-08-31 10:58:18* Test Item Value Reference Range Interpretation Comme nts NA (test code = 9957825734) 141 mmol/L 135-145 K (test code = 7762204453) 4.0 mmol/L 3.5-5.0 CL (test code = 4242489465) 110 mmol/L 98-108 H CO2 TOTAL (test code = 5130102145) 25 mmol/L 23-31 AGAP (test code = 0356007410) 2-16 BUN (test code = 5011390415) 5 mg/dL 7-23 L GLUCOSE (test code = 8465515108) 80 mg/dL 70-110 CREATININE (test code = 2804512647) 0.71 mg/dL 0.60-1.25 TOTAL BILI (test code = 4892502777) 0.5 mg/dL 0.1-1.1 CALCIUM (test code = 0667599517) 7.7 mg/dL 8.6-10.6 L T PROTEIN (test code = 9539888553) 5.2 g/dL 6.3-8.2 L ALBUMIN (test code = 2047382594) 3.3 g/dL 3.5-5.0 L ALK PHOS (test code = 5020345850) 71 U/L 34-122 ALTv (test code = 1742-6) 16 U/L 5-50 AST(SGOT) (test code = 5447109444) 23 U/L 13-40 eGFR (test code = 9613722084) mL/min/1.73m2 KACI (test code = KACI) Association [...] imaging tests). Lab Interpretation (test code = 21391-9) Abnormal [facility] WITH [id number] 09:52:32* Test Item Value Reference Range Interpretation [...] 33.8 g/dL 31.2-35.0 RDW-SD (test code = 16215-0) 41.1 fL 38.5-51.6 RDW-CV (test code = 788-0) 12.9 % 12.1-15.4 PLT (test code = 777-3) See_Comment [Automated message] The system which generated this result transmitted reference range: 150 - 328 10*3/?L. The reference range was not used to interpret this result as normal/abnormal. MPV (test code = 56652-0) 11.1 fL 9.8-13.0 NRBC/100 WBC (test code = 3820903389) See_Comment [Automated message] The system which generated this result transmitted reference range: 0.0 - 10.0 /100 WBCs. The reference range was not used to interpret this result as normal/abnormal. NRBC x10^3 (test code = 6458636553) See_Comment [Automated message] The system which generated this result transmitted reference range: 10*3/?L. The reference range was not used to interpret this result as normal/abnormal. GRAN MAT (NEUT) % (test code = 770-8) 90.1 % IMM GRAN % (test code = 3919331386) 0.40 % LYMPH % (test code = 736-9) 5.4 % MONO % (test code = 5905-5) 3.8 % EOS % (test code = 713-8) 0.1 % BASO % (test code = 706-2) 0.2 % GRAN MAT x10^3(ANC) (test code = 4495397041) 14.75 10*3/uL 1.99-6.95 H IMM GRAN x10^3 (test code = 5256018075) 0.06 10*3/uL 0.00-0.06 LYMPH x10^3 (test code = 731-0) 0.88 10*3/uL 1.09-3.23 L MONO x10^3 (test code = 742-7) 0.62 10*3/uL 0.36-1.02 EOS x10^3 (test code = 711-2) 0.06-0.53 L BASO x10^3 (test code = 704-7) 0.03 10*3/uL 0.01-0.09 Lab Interpretation (test code = 17821-1) Abnormal [facility] Hospital[facility] Panel 20 + Lactic [id number] 09:16:12* Test Item Value Reference Range Interpretation Comme nts PH (test code = 2) 7.35-7.45 PCO2 (test code = 6231334903) See_Comment [Automated messa ge] The system which generated this result transmitted reference range: 35 - 45 mmHg. The reference range was not used to interpret this result as normal/abnormal. PO2 (test code = 6348841809) See_Comment H [Automated messa ge] The system which generated this result transmitted reference range: 80 - 100 mmHg. The reference range was not used to interpret this result as normal/abnormal. HCO3 (test code = 1222091533) See_Comment L [Automated messa ge] The system which generated this result transmitted reference range: 22 - 26 mEq/L. The reference range was not used to interpret this result as normal/abnormal. BE (test code = 8531730697) See_Comment L [Automated messa ge] The system which generated this result transmitted reference range: -3.0 - 3.0 mEq/L. The reference range was not used to interpret this result as normal/abnormal. THB (test code = 2982945342) 13.2 g/dL 13.5-18.0 L %O2HB (test code = 4155431798) 98.8 % 94.0-99.0 %COHB ART (test code = 6825015208) 0.3 % 0.0-1.5 %METHB ART (test code = 1123380267) 0.2 % 0.4-1.5 L VOL%O2 ART (test code = 6306189235) 18.8 % 15.0-23.0 NA (test code = 1347319840) 139 mmol/L 135-145 K+ (test code = 3272165270) 3.9 mmol/L 3.5-5.0 AC CA IONZ (test code = 0127758743) 4.60 mg/dL 4.50-5.30 GLUCOSE (test code = 1035826597) 88 mg/dL 70-110 LACTIC ACID (test code = 7880155567) 1.04 mmol/L 0.50-2.20 Lab Interpretation (test code = 41264-4) Abnormal [facility][H] Drug Screen Urine (9 Drugs)2019-07-20 15:46:01* [...] Negative Urine Propoxyphene Screen (test code = 86481-5) Negative Negative Urine Drug Screen Note (test [...] 50 ng/mLMethadone 300 ng/mLUrine alcohol 20 mg/dL [facility][H] Drug Screen Urine (9 Drugs)2019-02-24 13:44:01* [...] Negative Urine Propoxyphene Screen (test code = 13135-7) Negative Negative Urine Drug Screen Note (test [...] 50 ng/mLMethadone 300 ng/mLUrine alcohol 20 mg/dL [facility]"
[2024-02-04] MEDS ORDERED: NA CHLORIDE 0.9% 1,000 ML ONE (19:42)
[2024-02-04 19:45] LABS: Absolute Lymphocytes (CBC) 2.3 K/uL (0.7-4.9); Absolute Monocytes 0.5 K/uL (0.1-1.3); Absolute Neutrophil 3.7 K/uL (1.8-8.0); Basophils % 0.7 % (0-1.3); Eosinophils % 0.1 % (0-4.4); Hematocrit 42.4 % (39.6-49.0); Hemoglobin 14.2 g/dL (13.6-17.9); Lymphocytes % 35.6 % (15.3-44.8); MCH 29.6 pg (27.0-35.0); MCHC 33.6 g/dL (32.0-36.0); MCV 88.3 fL (80-100); MPV 8.2 fL (7.6-11.3); Monocytes % 7.1 % (3.3-12.3); Neutrophils % 56.5 % (41.7-73.7); Nucleated Red Blood Cells % 0.1 % (0-0); Platelets 293 thou/uL (152-406); RBC Red Blood Cell Count 4.81 M/uL (4.33-5.43); Red Cell Distribution Width 14.7 % (12.1-15.2)
[2024-02-04 19:50] LABS: PT Prothrombin Time 12.8 SECONDS (9.5-12.5); PTT, Activated Partial Thromb 31.9 SECONDS (24.3-36.9); Protime INR 1.17
[2024-02-04 19:59] LABS: ALT/SGPT 16 U/L (16-61); Albumin 4.3 g/dL (3.4-5.0); Albumin/Globulin Ratio 1.3 (1.1-1.8); Alkaline Phosphatase 132 U/L (45-117); Anion Gap 7.8 mEq/L (5.0-15.0); BUN Blood Urea Nitrogen 4 mg/dL (7-18); Bicarbonate 28 mEq/L (21-32); Bilirubin Direct 0.2 mg/dL (0-0.2); Bilirubin Indirect, Calculated 0.3 mg/dL (0.2-0.8); Bilirubin Total 0.5 mg/dL (0.2-1.0); Globulin 3.4 g/dL (2.3-3.5); Glomerular Filtration Rate 126 ml/min (=/>90); Glucose Level 108 mg/dL (74-106); Potassium 3.8 mEq/L (3.5-5.1); Protein, Total 7.7 g/dL (6.4-8.2); Sodium Level 144 mEq/L (136-145)
[2024-02-04 20:00] LABS: AST/SGOT < 10 U/L (15-37)
--- NOTE | 2024-02-04 20:41 | ER ---
Nurse's Notes [facility] Name: Chan Gale Age: 23 yrs Sex: Male : 2000 Arrival Date: 02/04/2024 Time: 19:03 Bed 3 Private MD: Diagnosis: Alcohol use, unspecified with intoxication;Insomnia, unspecified Presentation: 02/03 19:13 Chief complaint: Patient states: that he has not been able to sleep for the last 2-3 cm10 months. Pt reports that he drank 10 wine coolers today and still has not been to sleep. Pt denies any SI or HI but states that he feels unstable. PT A\T\Ox4 at the time of triage. Coronavirus screen: Client denies travel out of the [place] in the last 14 days. At this time, the client does not indicate any symptoms associated with coronavirus-19. Ebola Screen: Patient denies travel to an Ebola-affected area in the 21 days before illness onset. No symptoms or risks identified at this time. Initial Sepsis Screen: Does the patient meet any 2 criteria? No. Patient's initial sepsis screen is negative. Does the patient have a suspected source of infection? No. Patient's initial sepsis screen is negative. Risk Assessment: Do you want to hurt yourself or someone else? Patient reports no desire to harm self or others. Onset of symptoms was February 04, 2024. 19:13 Method Of Arrival: Ambulatory cm10 19:13 Acuity: SIRISHA 3 cm10 Triage Assessment: 19:15 General: Appears in no apparent distress. comfortable, Behavior is cooperative, cm10 anxious, restless. Neuro: Level of Consciousness is awake, alert, obeys commands, Oriented to person, place, time, situation. Historical: - Allergies: 19:12 No Known Allergies; cm10 - PMHx: 19:12 adhd; Anxiety; avoident restrictive food intact disorder; Bipolar disorder; Depression; cm10 drug abuse; - Immunization history:: Adult Immunizations up to date. - Infectious Disease History:: Denies. - Social history:: Smoking status: Patient denies any tobacco usage or history of. Patient uses alcohol, street drugs, marijuana. Screenin:35 [facility] ED Fall Risk Assessment (Adult) History of falling in the last 3 months, lg3 including since admission No falls in past 3 months (0 pts) Confusion or Disorientation No (0 pts) Intoxicated or Sedated Yes (3 pts) Impaired Gait No (0 pts) Mobility Assist Device Used No (0 pt) Altered Elimination No (0 pt) Score/Fall Risk Level 3 or more points = High Risk Oriented to surroundings, Maintained a safe environment, Educated pt \T\ family on fall prevention, incl call for assistance when getting out of bed, Assessed \T\ reinforced patient's understanding of fall precautions, Provided non-skid footwear. Abuse screen: Denies threats or abuse. Denies injuries from another. Nutritional screening: No deficits noted. Tuberculosis screening: No symptoms or risk factors identified. Assessment: 19:35 General: Appears in no apparent distress. Behavior is cooperative, anxious, restless. lg3 Pain: Denies pain. Neuro: Veras Agitation-Sedation Scale (RASS): +1 Restless Level of Consciousness is awake, alert, obeys commands, Oriented to person, place, time, situation, Speech is normal. Cardiovascular: No deficits noted. Denies chest pain, shortness of breath, Capillary refill < 3 seconds Clubbing of nail beds is absent JVD is absent Patient's skin is warm and dry. Respiratory: No deficits noted. Airway is patent Respiratory effort is even, unlabored, Respiratory pattern is regular, symmetrical, Breath sounds are clear bilaterally. GI: No deficits noted. No signs and/or symptoms were reported involving the gastrointestinal system. Abdomen is flat, non-distended. : No deficits noted. No signs and/or symptoms were reported regarding the genitourinary system. EENT: No deficits noted. No signs and/or symptoms were reported regarding the EENT system. Derm: No deficits noted. No signs and/or symptoms reported regarding the dermatologic system. Skin is intact, is healthy with good turgor, Skin is dry, Skin is normal, Skin temperature is warm. Musculoskeletal: No deficits noted. No signs and/or symptoms reported regarding the musculoskeletal system. Circulation, motion, and sensation intact. Range of motion: intact in all extremities. 20:54 Reassessment: Patient appears in no apparent distress at this time. No changes from lg3 previously documented assessment. Patient and/or family updated on plan of care and expected duration. Pain level reassessed. Patient is alert, oriented x 3, equal unlabored respirations, skin warm/dry/pink. Vital Signs: 19:13 BP 117 / 88; Pulse 78; Resp 16; Temp 97.1; Pulse Ox 98% on R/A; Weight 47.63 kg; Height cm10 5 ft. 9 in. ; Pain 6/10; 20:54 BP 113 / 87; Pulse 66; Resp 15 S; Pulse Ox 99% on R/A; lg3 19:13 Body Mass Index 15.51 (47.63 kg, 175.26 cm) cm10 19:13 Pain Scale: Adult cm10 ED Course: 19:04 Patient arrived in ED. rg4 19:08 William Nichols PA is PHCP. cp 19:08 Damien Tapia DO is Attending Physician. cp 19:14 Triage completed. cm10 19:15 Arm band placed on Patient placed in an exam room, on a stretcher. cm10 19:24 Nighat Phillips RN is Primary Nurse. lg3 19:35 Patient has correct armband on for positive identification. Placed in gown. Bed in low lg3 position. Call light in reach. Side rails up X 1. Client placed on continuous cardiac and pulse oximetry monitoring. NIBP monitoring applied. Door closed. Noise minimized. Warm blanket given. 19:35 Inserted saline lock: 22 gauge in right antecubital area, using aseptic technique. lg3 Blood collected. 20:54 No provider procedures requiring assistance completed. IV discontinued, intact, lg3 bleeding controlled, No redness/swelling at site. Pressure dressing applied. Administered Medications: 19:51 Drug: NS 0.9% IV 1000 ml IV at 999 ml/hr Per protocol; 1000 mL bolus Route: IV; Rate: lg3 999 ml/hr; Site: right antecubital; 20:54 Follow up: Response: No adverse reaction; IV Status: Completed infusion; IV Intake: lg3 1000ml Medication: 20:54 VIS not applicable for this client. lg3 Intake: 20:54 IV: 1000ml; Total: 1000ml. lg3 Outcome: 20:40 Discharge ordered by . cp 20:54 Discharged to home ambulatory, lg3 20:54 Condition: stable 20:54 Discharge instructions given to patient, Instructed on discharge instructions, follow up and referral plans. Demonstrated understanding of instructions, follow-up care, 20:55 Patient left the ED. lg3 Signatures: William Nichols PA PA cp Garcia, Rubi rg4 Nighat Phillips, RN RN lg3 Sangeetha Cordova, RN RN cm10
--- NOTE | 2024-02-04 20:41 | EDPHYS ---
Physician Documentation [facility] Name: Chan Gale Age: 23 yrs Sex: Male : 2000 Arrival Date: 02/04/2024 Time: 19:03 Bed 3 Private MD: ED Physician Damien Tapia HPI: 02/03 19:30 This 23 yrs old Male presents to ER via Ambulatory with complaints of Altered Mental cp Status. 19:30 The patient presents to the emergency department with insomnia. cp 19:30 Associated signs and symptoms: Pertinent negatives: abdominal pain, chest pain, cp delusions, hallucinations, homicidal ideation, suicide ideation. Patient reports inability to sleep for past 5 days. Admits to drinking alcohol earlier today. Denies hallucinations, denies suicidal and/or homicidal ideations. Historical: - Allergies: 19:12 No Known Allergies; cm10 - PMHx: 19:12 adhd; Anxiety; avoident restrictive food intact disorder; Bipolar disorder; Depression; cm10 drug abuse; - Immunization history:: Adult Immunizations up to date. - Infectious Disease History:: Denies. - Social history:: Smoking status: Patient denies any tobacco usage or history of. Patient uses alcohol, street drugs, marijuana. ROS: 19:33 Constitutional: Negative for body aches, chills, fever, poor PO intake, cp 19:33 Eyes: Negative for injury, pain, redness, and discharge, cp 19:33 ENT: Negative for drainage from ear(s), ear pain, sore throat, difficulty swallowing, difficulty handling secretions, 19:33 Cardiovascular: Negative for chest pain, edema, palpitations, 19:33 Respiratory: Negative for cough, shortness of breath, wheezing, 19:33 Abdomen/GI: Negative for abdominal pain, vomiting, diarrhea, constipation, 19:33 Psych: Positive for insomnia, Negative for auditory hallucinations, visual hallucinations, homicidal ideation, suicide gesture, suicidal ideation, 19:33 All other systems are negative, Exam: 19:35 Constitutional: The patient appears in no acute distress, alert, awake, cp non-diaphoretic, non-toxic, well developed, well nourished, 19:35 Head/Face: Normocephalic, atraumatic. cp 19:35 Eyes: Periorbital structures: appear normal, Conjunctiva: normal, no exudate, no injection, Sclera: no appreciated abnormality, Lids and lashes: appear normal, bilaterally, 19:35 ENT: External ear(s): are unremarkable, Nose: is normal, Mouth: Lips: moist, Oral mucosa: pink and intact, moist, Posterior pharynx: Airway: no evidence of obstruction, patent, 19:35 Chest/axilla: Inspection: normal, 19:35 Cardiovascular: Rate: normal, Rhythm: regular, Edema: is not appreciated, 19:35 Respiratory: the patient does not display signs of respiratory distress, Respirations: normal, no use of accessory muscles, no retractions, labored breathing, is not present, Breath sounds: are clear throughout, no decreased breath sounds, no stridor, no wheezing, 19:35 Abdomen/GI: Inspection: abdomen appears normal, Bowel sounds: active, all quadrants, Palpation: abdomen is soft and non-tender, in all quadrants, 19:35 Back: pain, is absent, ROM is normal, 19:35 Neuro: Orientation: to person, place, situation, Mentation: able to follow commands, Motor: moves all fours, Gait: is steady, Vital Signs: 19:13 BP 117 / 88; Pulse 78; Resp 16; Temp 97.1; Pulse Ox 98% on R/A; Weight 47.63 kg; Height cm10 5 ft. 9 in. ; Pain 6/10; 20:54 BP 113 / 87; Pulse 66; Resp 15 S; Pulse Ox 99% on R/A; lg3 19:13 Body Mass Index 15.51 (47.63 kg, 175.26 cm) cm10 19:13 Pain Scale: Adult cm10 MDM: 19:08 Patient medically screened. cp 20:00 Differential diagnosis: drug withdrawal. acute psychotic break, depression, psychosis cp secondary to non-compliance. 20:40 Data reviewed: vital signs, nurses notes, lab test result(s), EKG. cp 20:40 Counseling: I had a detailed discussion with the patient and/or guardian regarding the cp historical points, exam findings, and any diagnostic results supporting the discharge/admit diagnosis, lab results, to return to the emergency department if symptoms worsen or persist or if there are any questions or concerns that arise at home. ED course: VSS. Will discharge to home with father for continued monitoring. 02/03 19:19 Order name: Acetaminophen; Complete Time: 20:27 cp 02/03 19:19 Order name: Basic Metabolic Panel; Complete Time: 20:27 cp 02/03 20:27 Interpretation: Normal except: CL 112; GLUC 108; BUN 4. cp 02/03 19:19 Order name: CBC with Diff; Complete Time: 20:27 cp 02/03 19:19 Order name: ETOH Level; Complete Time: 20:27 cp 02/03 20:27 Interpretation: Abnormal: ETOH 259. 02/03 19:19 Order name: Hepatic Function; Complete Time: 20:27 cp 02/03 20:27 Interpretation: Normal except: AST < 10; ALK 132. 02/03 19:19 Order name: PT-INR; Complete Time: 20:27 cp 02/03 20:38 Interpretation: Reviewed. 02/03 19:19 Order name: Ptt, Activated; Complete Time: 20:27 cp 02/03 19:19 Order name: Salicylate; Complete Time: 20:27 02/03 19:19 Order name: EKG; Complete Time: 19:20 cp 02/03 19:19 Order name: EKG - Nurse/Tech; Complete Time: 19:50 cp 02/03 19:19 Order name: IV Saline Lock; Complete Time: 19:37 cp 02/03 19:19 Order name: Labs collected and sent; Complete Time: 19:37 02/03 19:19 Order name: Suicide Screening (Swift); Complete Time: 19:37 cp Administered Medications: 19:51 Drug: NS 0.9% IV 1000 ml IV at 999 ml/hr Per protocol; 1000 mL bolus Route: IV; Rate: lg3 999 ml/hr; Site: right antecubital; 20:54 Follow up: Response: No adverse reaction; IV Status: Completed infusion; IV Intake: lg3 1000ml Disposition Summary: 02/04/24 20:40 Discharge Ordered Notes: Location: Home cp Problem: new cp Symptoms: are unchanged cp Condition: Stable cp Diagnosis - Alcohol use, unspecified with intoxication cp - Insomnia, unspecified cp Followup: cp - With: Private Physician - When: 1 - 2 days - Reason: Recheck today's complaints Discharge Instructions: - Discharge Summary Sheet cp - Alcohol Intoxication cp - Insomnia cp Forms: - Medication Reconciliation Form cp - Antibiotic Education cp - Prescription Opioid Use cp - Patient Portal Instructions cp - Leadership Thank You Letter cp Addendum: 02/08/2024 18:15 I was immediately available on-site in the Emergency Department for consultation in the m s3 care of the patient. Signatures: Dispatcher [employer] EDMS William Nichols PA PA cp Able, Lacie, RN RN lg3 Damien Tapia DO DO ms3 Sangeetha oCrdova, RN RN cm10 Corrections: (The following items were deleted from the chart) 02/03 19:20 19:19 ACETAMINOPHEN+C.LAB.BRZ ordered. EDMS EDMS 19:20 19:19 BASIC METABOLIC PANEL+C.LAB.BRZ ordered. EDMS EDMS 19:20 19:19 CBC+H.LAB.BRZ ordered. EDMS EDMS 19:20 19:19 ETHANOL+C.LAB.BRZ ordered. EDMS EDMS 19:20 19:19 HEPATIC FUNCTION+C.LAB.BRZ ordered. EDMS EDMS 19:20 19:19 PROTIME (+INR)+COAG.LAB.BRZ ordered. EDMS EDMS 19:20 19:19 PTT, ACTIVATED+COAG.LAB.BRZ ordered. EDMS EDMS 19:20 19:19 SALICYLATE+C.LAB.BRZ ordered. EDMS EDMS 19:20 19:19 Urinalysis+U.LAB.BRZ ordered. EDMS EDMS 19:20 19:19 URINE DRUG SCREEN+UC.LAB.BRZ ordered. EDMS EDMS 02/04 18:16 02/03 19:35 Neuro: Orientation: to person, place, situation, Mentation: able to follow cp commands, Motor: moves all fours, cp
[2024-02-04 21:42] VITALS: BP 113/87; TEMP 97.1; O2SAT 99
--- NOTE | 2024-02-08 13:30 | EKG ---
Test Date: 2024-02-04 Test Time: 19:43:37 Billiard Table Assembler: NINA MEASUREMENT RESULTS: Intervals: Rate: 67 MN: 158 QRSD: 122 QT: 390 QTc: 412 [place]: P: 69 MN: 158 QRS: -3 T: 71 INTERPRETIVE STATEMENTS: Normal sinus rhythm Right bundle branch block Abnormal ECG Compared to ECG 12/03/2023 09:09:42 Right bundle-branch block now present Incomplete right bundle-branch block no longer present Electronically Signed On 02-08-24 13:19:52 CDT by Ed Haynes
== END 2024-02-04 20:55 | disposition home or self-care (01) ==
LOC: ER 19:03
DX: F10.929 Alcohol use, unspecified with intoxication, unspecified (principal); G47.00 Insomnia, unspecified
CPT/HCPCS: 85025; 80048; 36415; 85610; 80076; 85730; 96360; 99284; 80143; 80179; 82077; J7030; 93005

== ENCOUNTER 2024-05-31 23:58 | Emergency (ER) | payer OTHER ==
--- OUTSIDE RECORDS SUMMARY | 2024-06-01 00:02 | XMS REPORT | Continuity of Care Document ---
Author Name Unknown Address [address] [facility] [address] [place] [address] [facility] Address [address] [facility] [place] [address] Care Team Providers [employer] Name Role Phone KENYA FUENTES Primary Care Physician Unavailab IHSAN Dumont Attending Clinician UnavailALLEN Cardenas Attending Clinician Unavailable KENYA FUENTES Attending Clinician Unavailable DONTA HAYNES Attending Clinician Unavailabdoulaye Haynes MD, Donta Bundy Attending Clinician [phone] CRISTINA AZUL Attending Clinician UnavailKenya Lazcano Attending Clinician [phone] Doctor Unassigned, [place] Attending Clinician U Marilu Bingham LVN Attending Clinician [phone] TRINIDAD ESTRADA Attending Clinician UnavailTrinidad Sandhu DO Attending Clinician [phone] MICHAEL ASHRAF Attending Clinician Unavailable Luci SHAH, Campbell Quesada Attending Clinician [phone] Ayaan Yung DO Attending Clinician [phone] Michael Ashraf DO Attending Clinician [phone] Greerheavenly PALACIOS, Kim Alicea Attending Clinician [phone] KIM PATEL Attending Clinician UnavailJAZMYN Spence M.D. Attending Clinician UnavailCHANCE Lima APRN Attending Clinician Un available KENYA FUENTES Admitting Clinician Unavailable CAMPBELL UGERRERO Admitting Clinician Unava ilable Ayaan Yung DO Admitting Clinician [phone] Payers Payer Name Policy Type Policy Number Effective Date Expirati on Date Source [facility] WHITNEYJosiahARIANNA RONI COPAY FOCUS 9 [id number] 2023 00:00:00 [facility] OPAL [id number] 2018 00:00:00 Problems Condition Name Condition Details Condition Category Status Onset Date Resolution Date Last Treatment Date Treating Clinician Comments Source Need for hepatitis C screening test Need for hepatitis C screening test Disease Active 10-20 00:00: 00 [facility] Low bone density for age Low bone density for age Disease Active 10-20 00:00: 00 [facility] Encounter to establish care Encounter to establish care Disease Active 2021-09 00:00: 00 [facility] RLS (restless legs syndrome) RLS (restless legs syndrome) Disease Active 2021-09 00:00: 00 [facility] BMI less than 19,adult BMI less than 19,adult Disease Active 2021-09 00:00: 00 [facility] Drug overdose of undetermin ed intent, initial encounter Drug overdose of undetermin ed intent, initial encounter Disease Active 2021-09 00:00: 00 [facility] Bipolar 1 disorder, mixed anxiety-de pression, moderate Bipolar 1 disorder, mixed anxiety-de pression, moderate Disease Recurre nce 02-23 00:00: 00 [facility] Anxiety Anxiety Disease Active 02-23 00:00: 00 [facility] Underweigh t in childhood with BMI < 5th percentile Underweigh t in childhood with BMI < 5th percentile Disease Active 2017-09 00:00: 00 [facility] 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 Disease Active 04-19 00:00: 00 [facility] 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 Disease Active 04-19 00:00: 00 [facility] Nicotine abuse Nicotine abuse Disease Active 01-10 00:00: 00 [facility] Marijuana abuse, continuous Marijuana abuse, continuous Disease Active 01-10 00:00: 00 [facility] Attention deficit hyperactiv ity disorder (ADHD) Attention deficit hyperactiv ity disorder (ADHD) Disease Recurre nce 2006-09 00:00: 00 [facility] Major depressive disorder with current active episode, unspecifie d depression episode severity, unspecifie d whether recurrent Major depressive disorder with current active episode, unspecifie d depression episode severity, unspecifie d whether recurrent Problem Active [facility] Anxiety disorder, unspecifie d type Anxiety disorder, unspecifie d type Problem Active [facility] Sensory processing difficulty Sensory processing difficulty Problem Active [facility] Academic/e ducational problem Academic/e ducational problem Problem Active [facility] ZANDER (generaliz ed anxiety disorder) ZANDER (generaliz ed anxiety disorder) Problem Active [facility] Marijuana abuse Marijuana abuse Problem Active [facility] Polysubsta nce abuse Polysubsta nce abuse Problem Active [facility] Allergies, Adverse Reactions, Alerts Allergy Name Allergy Type Status Severity Reaction(s) Onset Date Inactive Date Treating Clinician Comments Source NO KNOWN ALLERGIE S Drug Class Active [facility] Social History Social Habit Start Date Stop Date Quantity Comments Source Exposure to SARS-CoV-2 (event) 2022-11-18 00:00:00 2022-11-28 11:48:00 Not sure [facility] Alcohol intake 2022-10-20 00:00:00 2022-10-20 00:00:00 Current non-drinker of alcohol (finding) [facility] Tobacco Comment 2022-09-05 00:00:00 2022-09-05 00:00:00 Vapes [facility] Tobacco use and exposure 2022-09-05 00:00:00 2022-09-05 00:00:00 Smokeless tobacco non-user [facility] Cigarettes smoked current (pack per day) - Reported 2022-09-05 00:00:00 2022-09-05 00:00:00 [facility] History of tobacco use 2018-07-08 00:00:00 Cigarette Smoker [facility] Sex Assigned At 2002 00:00:00 2000 00:00:00 [facility] Smoking Status Start Date Stop Date Source Never smoked tobacco (finding) [facility] Smokes tobacco daily 2022-09-05 00:00:00 [facility] Ex-smoker 2022-09-01 00:00:00 2022-09-01 [facility] Ordered Medication Name Filled Medication Name Start Date Stop Date Current Medication? Ordering Clinician Indication Dosage Frequency Signature (SIG) Comments Components Source ondansetron (ZOFRAN) 4 mg tablet 12-02 00:00: 00 12-13 04:59 :00 No [id number] 4mg Take 1 tablet by mouth every 8 (eight) hours as needed for Nausea and Vomiting (N/V) for up to 10 days. [facility] OXcarbazepi ne 600 mg tablet 2021-09 14:31: 18 09-05 00:00 :00 No 600mg Take 600 mg by mouth 2 (two) times daily. [facility] LORazepam 1 mg Cp24 2021-09 14:27: 07 09-05 00:00 :00 No 1mg Take 1 mg by mouth 2 (two) times daily. [facility] olanzapine (ZYPREXA ORAL) 2021-09 14:26: 27 Yes Take by mouth 2 (two) times daily. [facility] gabapentin 600 mg tablet 2021-09 14:26: 27 Yes 600mg Take 600 mg by mouth in the morning and 600 mg at noon and 600 mg in the evening. [facility] SERTraline 100 mg tablet 2021-09 14:19: 22 09-05 00:00 :00 No 100mg Take 100 mg by mouth daily. [facility] nicotine (NICODERM) 21 mg/24 hr patch 1 Patch 2021-09 19:45: 00 Yes 1{patch } 1 Patch, Topical, Administer over 24 Hours, Q24H, First dose on Thu09/02/22 at 1345, Until Discontinu ed, Routine [facility] hydrOXYzine (ATARAX) tablet 10 mg 2021-09 19:30: 00 09-02 18:49 :00 No 10mg 10 mg, Oral, ONCE, 1 dose, On Thu09/02/22 at 1330, Routine [facility] gabapentin 600 mg tablet 2021-09 17:34: 50 Yes 600mg Take 600 mg by mouth in the morning and 600 mg at noon and 600 mg in the evening. [facility] OXcarbazepi ne 600 mg tablet 2021-09 15:34: 48 Yes 600mg Take 600 mg by mouth 2 (two) times daily. [facility] SERTraline 100 mg tablet 2021-09 15:34: 48 Yes 100mg Take 100 mg by mouth daily. [facility] 2019 [facility] olanzapine (ZYPREXA ORAL) 2021-09 15:34: 48 Yes Take by mouth 2 (two) times daily. Prescribed by [facility] - Apr 2019 [facility] LORazepam 1 mg Cp24 2021-09 15:34: 48 Yes 1mg Take 1 mg by mouth 2 (two) times daily. [facility] gabapentin 600 mg tablet 2021-09 15:34: 48 Yes 600mg Take 600 mg by mouth in the morning and 600 mg at noon and 600 mg in the evening. [facility] LORazepam (ATIVAN) tablet 1 mg 2021-09 15:00: 00 Yes 1mg 1 mg, Oral, QAM, First dose on Thu09/02/22 at 0900, Until Discontinu ed, Routine [facility] OLANZapine (ZyPREXA) tablet 15 mg 2021-09 03:00: 00 Yes 15mg 15 mg, Oral, QHS, First dose on Thu09/01/22 at 2100, Until Discontinu ed, Routine [facility] PARoxetine (PAXIL) tablet 20 mg 2021-09 03:00: 00 Yes 20mg 20 mg, Oral, QHS, First dose on Thu09/01/22 at 2100, Until Discontinu ed, Routine [facility] gabapentin (NEURONTIN) tablet 600 mg 2021-09 02:00: 00 Yes 600mg 600 mg, Oral, TID, First dose on Thu09/01/22 at 2000, Until Discontinu ed, Routine [facility] acetaminoph en (TYLENOL) tablet 325 mg 2021-09 23:49: 00 09-02 00:20 :00 No 325mg 325 mg, Oral, ONCE, 1 dose, On Thu09/01/22 at 1800, Routine [facility] clonazePAM (KLONOPIN) tablet 1 mg 2021-09 16:15: 00 Yes 1mg 1 mg, Oral, Q8H, First dose (after last modificati on) on Thu09/01/22 at 1015, Until Discontinu ed, Routine [facility] ketamine (KETALAR) injection 50 mg 2021-09 23:30: 00 08-31 07:04 :00 No 50mg 50 mg, Slow IV Push, ONCE, 1 dose, On Thu08/31/22 at 1730, Routine [facility] clonazePAM 0.1 mg/mL oral suspension 1 mg 2021-09 20:00: 00 09-01 14:29 :11 No 1mg 1 mg, Oral, TID, First dose on Thu08/31/22 at 1400, Until Discontinu ed, Routine [facility] midazolam (VERSED) STD 50mg in NaCl 0.9% [...] at maximum allowed dose, contact prescriber .
[facility] enoxaparin (LOVENOX) injection 40 mg 2021-09 15:00: 00 Yes 40mg 40 mg, Subcutaneo us, DAILY, First dose on Thu08/31/22 at 0900, Until Discontinu ed, Routine [facility] dexMEDEtomi dine 200 mcg in 0.9 % NaCl 50 mL (PRECEDEX) RTU IV infusion 2021-09 14:33: 19 09-02 00:39 :35 No .2ug/kg /h 0.2-1.5 mcg/kg/hr ?61 kg (3.05-22.8 75 mL/hr, rounded to 3.05-22.88 mL/hr), IV Infusion, TITRATE, Sedation-R ASS score (0 to -1), Starting on Thu08/31/22 at 0833
In itiate infusion at 0.2 mcg/kg/hr and titrate by 0.1 mcg/kg/hr every 30 minutes to goal sedation score. Maximum dose = 1.5 mcg/kg/hr. If goal not maintained at maximum allowed dose, contact prescriber .
[facility] fentaNYL PF (SUBLIMAZE) STD 2,500 mcg in NaCl 0.9% (NS) 250 mL infusion RTU 2021-09 08:03: 47 09-01 11:18 :51 No 25ug/h 25-200 mcg/hr (2.5-20 mL/hr), IV Infusion, TITRATE, CPOT/Pain Scale Goals Determined by Provider, Starting on Thu08/31/22 at 0203
In itiate infusion at 25 mcg/hr. Titrate by 25 mcg/hr every 1 minute to 15 minutes to identified goal pain and/or sedation scores. Maximum dose = 200 mcg/hr. If goal not maintained at maximum allowed dose, contact prescriber .
[facility] FENTanyl PF (SUBLIMAZE (PF)) injection 50 mcg 2021-09 08:00: 00 08-31 07:14 :00 No 50ug 50 mcg, Slow IV Push, ONCE, 1 dose, On [place] 08/31/22 at 0200, Routine [facility] propofoL IV infusion 2021-09 07:24: 17 08-31 07:09 :53 No 5ug/kg/ min 5-50 mcg/kg/min ?61 kg (1.83-18.3 mL/hr), IV Infusion, TITRATE, Sedation-R ASS score (0 to -1), Starting on [place] 08/31/22 at 0124
In itiate infusion at 5 mcg/kg/min and titrate by 5 mcg/kg/min every 30 seconds to 10 minutes to goal sedation score. Maximum dose = 50 mcg/kg/min . If goal not maintained at maximum allowed dose, contact prescriber . &nbs p;Tubing and unused portions of vials should be discarded after 12 hours.
[facility] lactated ringers IV infusion 1,000 mL 2021-09 07:15: 00 08-31 07:00 :00 No 1000mL at 999 mL/hr, 1,000 mL, Intravenou s, ONCE, 1 dose, On [place] 08/31/22 at 0115, Routine [facility] midazolam (VERSED) STD 50mg in NaCl 0.9% (NS) 50 mL infusion RTU 2021-09 06:26: 10 08-31 16:14 :53 No 1mg/h 1-10 mg/hr (1-10 mL/hr), IV Infusion, TITRATE, Sedation-R ASS score (0 to -1), Starting on [place] 08/31/22 at 0026
In itiate infusion at 1 mg/hr and titrate by 1 mg/hr every 3 minutes to 10 minutes to goal sedation score. Maximum dose = 10 mg/hr.&nbs p; If goal not maintained at maximum allowed dose, contact prescriber .
[facility] gabapentin 300 mg/6 mL (6 mL) solution 2021-09 23:09: 11 08-30 00:00 :00 No Take by mouth 2 (two) times daily. prescribed at [facility] no summer 2018 [facility] PARoxetine 20 mg tablet 2021-09 00:00: 00 Yes 20mg Take 20 mg by mouth in the morning. [facility] LORazepam 1 mg tablet 2021-09 00:00: 00 Yes 1mg Take 1 mg by mouth in the morning. [facility] SERTraline 100 mg tablet 10-22 18:52: 12 Yes 100mg Take 100 mg by mouth daily. Prescribed by [facility] - Apr 2019 [facility] olanzapine (ZYPREXA ORAL) 10-22 18:52: 09 Yes Take by mouth 2 (two) times daily. Prescribed by [facility] - Apr 2019 [facility] gabapentin 300 mg/6 mL (6 mL) solution 10-22 18:52: 07 Yes Take by mouth 2 (two) times daily. prescribed at [facility] no summer 2018 [facility] OXcarbazepi ne (TRILEPTAL) 600 mg tablet 10-22 18:52: 06 Yes 600mg Take 600 mg by mouth 2 (two) times daily. [facility] Sertraline HCl - 50 MG Oral [...] M.D. 1 TAKE 1 TABLET AT BEDTIME. [facility] Gabapentin 300 MG Oral Capsule Gabapentin 300 MG Oral Capsule 2018-09 00:00: 00 Yes JAZMYN TEDDY M.D. Q0.3333D TAKE 1 CAPSULE 3 TIMES DAILY. [facility] OXcarbazepi ne 300 MG Oral Tablet OXcarbazepi ne 300 MG Oral Tablet 16 00:00: 00 Yes JAZMYN TEDDY M.D. Q0.5D TAKE ONE (1) TABLET(S) BY MOUTH TWICE A DAY. [facility] busPIRone 15 mg tablet 03-03 00:00: 00 Yes [id number] 15mg Take 1 tablet by mouth 2 (two) times daily. [facility] DULoxetine 60 mg capsule 03-01 00:00: 00 Yes [id number] 60mg Take 1 capsule by mouth daily. [facility] DULoxetine 30 mg capsule 03-01 00:00: 00 Yes [id number] 30mg Take 1 capsule by mouth daily. [facility] OXcarbazepi ne (TRILEPTAL) 600 mg tablet 02-23 19:48: 44 Yes 600mg Take 600 mg by mouth 2 (two) times daily. [facility] traZODONE 50 mg tablet 02-23 00:00: 00 Yes [id number] 25mg Take 0.5 tablets by mouth 2 (two) times daily. [facility] Multi-Vitam in TABS Multi-Vitam in TABS Yes M.A. [facility] Vital Signs Vital Name Observation Time Observation Value Comments S ource Systolic blood pressure 2022-11-28 17:50:00 104 mm[Hg] [facility] Diastolic blood pressure 2022-11-28 17:50:00 52 mm[Hg] [facility] Heart rate 2022-11-28 17:50:00 106 /min [facility] Body height 2022-11-28 17:50:00 172.7 cm [facility] Body weight 2022-11-28 17:50:00 62.551 kg [facility] BMI 2022-11-28 17:50:00 20.97 kg/m2 [facility] Oxygen saturation in Arterial blood by Pulse oximetry 2022-11-28 17:50:00 93 /min [facility] Systolic blood pressure 2022-10-20 14:09:00 108 mm[Hg] [facility] Diastolic blood pressure 2022-10-20 14:09:00 65 mm[Hg] [facility] Heart rate 2022-10-20 14:09:00 95 /min [facility] Body temperature 2022-10-20 14:09:00 37.06 Jeana [facility] Body height 2022-10-20 14:09:00 172.7 cm [facility] Body weight 2022-10-20 14:09:00 58.968 kg [facility] BMI 2022-10-20 14:09:00 19.77 kg/m2 [facility] Oxygen saturation in Arterial blood by Pulse oximetry 2022-10-20 14:09:00 98 /min [facility] Systolic blood pressure 2022-09-05 20:22:00 101 mm[Hg] [facility] Diastolic blood pressure 2022-09-05 20:22:00 64 mm[Hg] [facility] Heart rate 2022-09-05 20:22:00 62 /min [facility] Body temperature 2022-09-05 20:22:00 36.33 Jeana [facility] Body height 2022-09-05 20:22:00 172.7 cm [facility] Body weight 2022-09-05 20:22:00 56.337 kg [facility] BMI 2022-09-05 20:22:00 18.88 kg/m2 [facility] Oxygen saturation in Arterial blood by Pulse oximetry 2022-09-05 20:22:00 97 /min [facility] Systolic blood pressure 2022-09-03 05:40:00 110 mm[Hg] [facility] Diastolic blood pressure 2022-09-03 05:40:00 81 mm[Hg] [facility] Heart rate 2022-09-03 05:40:00 64 /min [facility] Body temperature 2022-09-03 05:40:00 37.22 Jeana [facility] Respiratory rate 2022-09-03 05:40:00 18 /min [facility] Body height 2022-09-03 05:40:00 172.7 cm [facility] Body weight 2022-09-03 05:40:00 57.153 kg [facility] BMI 2022-09-03 05:40:00 19.16 kg/m2 [facility] Oxygen saturation in Arterial blood by Pulse oximetry 2022-09-03 05:40:00 100 /min [facility] Systolic blood pressure 2022-09-02 17:17:00 114 mm[Hg] [facility] Diastolic blood pressure 2022-09-02 17:17:00 75 mm[Hg] [facility] Heart rate 2022-09-02 17:17:00 81 /min [facility] Body temperature 2022-09-02 17:17:00 36.61 Jeana [facility] Respiratory rate 2022-09-02 17:17:00 18 /min [facility] Oxygen saturation in Arterial blood by Pulse oximetry 2022-09-02 17:17:00 99 /min [facility] Body weight 2022-09-01 19:40:00 61 kg [facility] BMI 2022-09-01 19:40:00 20.45 kg/m2 [facility] Body height 2022-09-01 19:36:00 172.7 cm [facility] BP Systolic 2019-10-20 12:54:00 118 mm[Hg] [...] O2 SAT 2019-02-24 10:04:00 100 % Source: [facility] Temperature 2019-02-07 10:53:00 98 [degF] [facility] BP Systolic 2019-02-07 10:53:00 103 mm[Hg] [facility] BP Diastolic 2019-02-07 10:53:00 63 mm[Hg] [facility] Height 2019-02-07 10:53:00 167.5 cm [facility] Weight 2019-02-07 10:53:00 44.8 kg [facility] Body Mass Index Calculated 2019-02-07 10:53:00 15.97 kg/m2 [facility] Heart Rate 2019-02-07 10:53:00 63 /min [facility] Procedures Procedure Date / Time Performed Performing Clinician Source [facility] PATIENT FINANCIAL POLICY 2022-11-28 17:49:34 Doctor Unassigned, [place] [facility] EXTERNAL PROVIDER RECORDS 2022-11-19 06:01:00 Doctor Unassigned, [place] [facility] DEXA AXIAL (HIP AND SPINE) 2022-09-17 19:58:00 Kenya Fuentes [facility] EXTERNAL PROVIDER RECORDS 2022-09-16 06:01:00 Doctor Unassigned, [place] [facility] ASSIGNMENT OF BENEFITS 2022-09-05 19:47:49 Docto r Unassigned, [place] [facility] COMP. METABOLIC PANEL ([id number]) 2022-09-01 10:44:00 [facility] CBC WITH DIFF 2022-09-01 10:44:00 Nati [facility] XR CHEST 1 VW 2022-09-01 10:15:00 Johann Cormier [facility] CREATINE KINASE 2022-08-31 09:35:00 Dolly Beasley [facility] MAGNESIUM 2022-08-31 09:35:00 Jael Coppola [facility] TROPONIN I 2022-08-31 09:35:00 Jael Coppola [facility] COMP. METABOLIC PANEL ([id number]) 2022-08-31 09:35:00 Jael Coppola [facility] SALICYLATE 2022-08-31 09:35:00 Jael Coppola [facility] ETHANOL 2022-08-31 09:35:00 Jael Coppola [facility] CBC WITH DIFF 2022-08-31 09:35:00 [facility] URINE DRUG (IMMUNOASSAY) - COMPREHENSIVE DRUG SCREEN 2022-08-31 09:07:00 Jael Coppola [facility] URINE DRUG (LCMSMS) - COMPREHENSIVE DRUG PANEL 2022-08-31 09:07:00 Jael Coppola [facility] AC PANEL 20 + LACTIC ACID 2022-08-31 09:01:00 Jael Coppola [facility] XR CHEST 1 VW 2022-08-31 05:44:00 Jael [facility]ppola [facility] XR KUB 2022-08-31 05:44:00 Jael Coppola [facility] AUTHORIZATION FOR RELEASE OF PHI 2020-08-21 06:01:00 Doctor Unassigned, [place] [facility] [[facility] CBC (INCLUDES DIFF/PLT) 2019-10-20 00:00:00 [facility] [[facility]] CMP W/EGFR 2019-10-20 00:00:00 [facility] [[facility]] LIPID PANEL 2019-10-20 00:00:00 [facility] [[facility]] TSH, 3RD GENERATION 2019-10-20 00:00:00 [facility] [Q] DRUG SCREEN,COMPREHENSIVE (URINE) 2019-07-20 00:00:00 [facility] [Q] DRUG SCREEN,COMPREHENSIVE (URINE) 2019-02-24 00:00:00 [facility] Encounters Start Date/Time End Date/Time Encounter Type Admission Type Attending [facility] Facility Care Department Encounter ID Source 2024-06-02 10:30:00 2024-06-02 10:30:00 Outpatient IHSAN CHEN [id number] [facility] 2024-05-18 15:15:00 2024-05-18 15:15:00 Outpatient ALLEN CANNON [id number] [facility] 2024-05-18 15:15:00 2024-05-18 15:15:00 Outpatient ALLEN CANNON [id number] [facility] 2023-04-24 11:00:00 2023-04-24 11:00:00 Outpatient DONTA CUEVAS [facility] [id number] [facility] 2022-12-30 00:00:00 2022-12-30 00:00:00 Telephone Donta Haynes [facility] [id number] [facility] 2022-12-03 14:00:00 2022-12-03 14:00:00 Outpatient KENYA CHOUDHARY [facility] [id number] [facility] 2022-12-02 00:00:00 2022-12-02 00:00:00 Telephone Alfredo Kenya [facility] [id number] [id number] [facility] 2022-11-28 12:00:00 2022-11-28 13:03:08 Outpatient R DALLAS DONTA [facility] [id number] [facility] 2022-11-28 12:00:00 2022-11-28 13:03:08 Office Visit Delvis Haynesin [facility] [id number] [facility] 2022-11-28 00:00:00 2022-11-28 00:00:00 Orders Only Doctor Unassigned, [place] [facility] [id number] [facility] 2022-11-19 00:00:00 2022-11-19 00:00:00 Orders Only Doctor Unassigned, [place] [facility] [id number] [facility] 2022-10-20 08:00:00 2022-10-20 08:45:36 Outpatient R KENYA FUENTES [facility] [id number] [facility] 2022-10-20 08:00:00 2022-10-20 08:45:36 Office Visit Alfredo Kenya [facility] [id number] [facility] 2022-09-23 00:00:00 2022-09-23 00:00:00 Telephone Kenya Fuentes [facility] [id number] [id number] [id number] [facility] 2022-09-17 13:39:39 2022-09-17 23:59:00 Outpatient R KENYA FUENTES [facility] [id number] [facility] 2022-09-17 13:39:39 2022-09-17 23:59:00 Hospital Encounter Kenya Fuentes [facility] 1..840.114 350.1.13.10 4.2.7.2.686 [id number] [facility] 2022-09-16 00:00:00 2022-09-16 00:00:00 Orders Only Doctor Unassigned, [place] [facility] 1.2840.114 350.1.13.10 4.2.7.2.686 [id number] [facility] 2022-09-05 14:00:00 2022-09-05 14:51:04 Outpatient R KENYA FUENTES [facility] [id number] [facility] 2022-09-05 14:00:00 2022-09-05 14:51:04 Office Visit Alfredo [facility] 1.2.840.114 350.1.13.10 4.2.7.2.686 [id number] [facility] 2022-09-05 00:00:00 2022-09-05 00:00:00 Orders Only Doctor Unassigned, [place] [facility] 1.2840.114 350.1.13.10 4.2.7.2.686 [id number] [facility] 2022-09-03 00:00:00 2022-09-03 00:00:00 Transition of Care Marilu Steiner 1.840.114 350.1.13.10 4.2.7.2.686 [id number] [facility] 2022-09-02 23:43:00 2022-09-02 23:56:00 Emergency X NATALIE TRINIDAD [facility] ERT [id number] [facility] 2022-09-02 23:43:00 2022-09-02 23:56:00 Emergency Natalie Trinidad Mota [facility] 1.840.114 350.1.13.10 4.2.7.2.686 [id number] [facility] 2022-08-30 22:42:00 2022-09-02 15:34:00 Inpatient X MICHAEL ASHRAF [facility] MOOSE [id number] [facility] 2022-08-30 22:42:00 2022-09-02 15:34:00 Hospital Encounter Campbell Guerrero, Michael Patel [facility] 1.0.114 350.1.13.10 4.2.7.2.686 [id number] [facility] 2020-08-21 00:00:00 2020-08-21 00:00:00 Orders Only Doctor Unassigned, [place] [facility] 1.2840.114 350.1.13.10 4.2.7.2.686 [id number] [facility] 2020-08-21 00:00:00 2020-08-21 00:00:00 Orders Only Doctor Unassigned, [place] [facility] 1.2840.114 350.1.13.10 4.2.7.2.686 [id number] 2019-12-08 13:05:19 2019-12-08 14:05:19 Office Visit Kim Patel [facility] [place] 1.840.114 350.1.13.10 4.2.7.2.686 [id number] [facility] 2019-12-08 13:05:19 2019-12-08 14:05:19 Office Visit Kim Patel [facility] 1.2.840.114 350.1.13.10 4.2.7.2.686 [id number] 2019-12-08 13:15:00 2019-12-08 13:15:00 Outpatient R KIM PATEL [facility] [id number] [facility] 2019-10-20 13:00:00 2019-10-20 13:00:00 Appointdena t; JAZMYN ESPINAL M.D. MEMON, SABA, M.D. [facility] [id number] [place] [facility] [facility] 2019-07-20 13:00:00 2019-07-20 13:00:00 Appointmen t; JAZMYN ESPINAL M.D. MEMON, SABA, M.D. [facility] [id number] [place] 2019-06-08 00:00:00 2019-06-08 00:00:00 Telephone Kim Patel [facility] Ricardo.2.840.114 350.1.13.10 4.2.7.2.686 [id number] [facility] 2019-02-24 10:00:00 2019-02-24 10:00:00 Appointmen t; JAZMYN ESPINAL M.D. MEMON, SABA, M.D. [facility] [id number] [place] [facility] 2019-02-07 10:20:00 2019-02-07 10:20:00 Appointdena palencia; CHANCE VAZQUEZ APRN WILLIAMSON, TIFFINY, APRN [facility] [id number] [place] [facility] Results Test Description Test Time Test Comments Results Result Co mments Source [facility] WITH [id number] 11:03:17* Test Item Value Reference Range Interpretation [...] g/dL 31.2-35.0 H RDW-SD (test code = 93245-9) 41.7 fL 38.5-51.6 RDW-CV (test code = 788-0) 13.2 % 12.1-15.4 PLT (test code = 777-3) See_Comment [Automated UpRacea ge] The system which generated this result transmitted reference range: 150 - 328 10*3/?L. The reference range was not used to interpret this result as normal/abnormal. MPV (test code = 29686-3) 11.9 fL 9.8-13.0 NRBC/100 WBC (test code = 1825138154) See_Comment [Automated Nala ssage] The system which generated this result transmitted reference range: 0.0 - 10.0 /100 WBCs. The reference range was not used to interpret this result as normal/abnormal. NRBC x10^3 (test code = 5250786980) See_Comment [Automated messa ge] The system which generated this result transmitted reference range: 10*3/?L. The reference range was not used to interpret this result as normal/abnormal. GRAN MAT (NEUT) % (test code = 770-8) 62.3 % IMM GRAN % (test code = 4961009842) 0.20 % LYMPH % (test code = 736-9) 25.7 % MONO % (test code = 5905-5) 8.0 % EOS % (test code = 713-8) 3.4 % BASO % (test code = 706-2) 0.4 % GRAN MAT x10^3(ANC) (test code = 6388161159) 5.01 10*3/uL 1.99-6.95 IMM GRAN x10^3 (test code = 1593472856) 0.00-0.06 LYMPH x10^3 (test code = 731-0) 2.07 10*3/uL 1.09-3.23 MONO x10^3 (test code = 742-7) 0.64 10*3/uL 0.36-1.02 EOS x10^3 (test code = 711-2) 0.27 10*3/uL 0.06-0.53 BASO x10^3 (test code = 704-7) 0.03 10*3/uL 0.01-0.09 Lab Interpretation (test code = 09688-0) Abnormal [facility] [id number] 17:58:42* Test Item Value Reference Range Interpretation Comme nts CK (test code = 2948633043) 180 U/L 33-194 Lab Interpretation (test cod e = 75702-8) Normal [facility] [id number] 11:09:00* Test Item Value Reference Range Interpretation Comments TROPONIN I (test code = 7900499827) 0.001 ng/mL See_Comment [Automated message] The system [...] of biotin. Lab Interpretation (test code = 79626-9) Normal [facility]ALIC[facility]ATE2022-12-04 10:59:14 SALICYLATE<10mg/L111/01/2021 4:59 AM [facility]ATORY SERVICESTherapeutic Range: ? Analgesic and Antipyretic Use ? 20-100 mg/L ? ? Anti- Inflammatory Use ? 100-250 mg/LToxic Range: ? Greater than 300 mg/LUnHCA [facility] Healthcare Medical CenterETHANOL2022-12-04 10:59:14ALCOHOL<10mg/dL08/31/2022 4:59 AM [facility] LABORATORY SERVICESToxic Greater than or equal to 80 mg/dL. NOTE: Whole blood values are approximately 10% to 15% lower than serum and plasma.[facility] [id number] 10:59:09* Test Item Value Reference Range Interpretation Comme nts ACETAMINOP (test code = 3727334552) 10.0-30.0 L KACI (test code = KACI) Toxic: Greater mamie n 200 ug/mL @ 4 hour post ingestion or greater than 50 ug/mL @ 12 hour post ingestion Lab Interpretation (test code = 90172-3) Abnormal [facility] HospitalMAGNESIUM2022-12-04 10:58:19* Test Item Value Reference Range Interpretation Comme nts MAGNESIUM (test code = 8230578218) 1.8 mg/dL 1.7-2.4 Lab Interpretation (test cod e = 13763-4) Normal [facility] HospitalCOMP. METABOLIC PANEL (14423)2022-08-31 10:58:18* Test Item Value Reference Range Interpretation Comme nts NA (test code = 2487078934) 141 mmol/L 135-145 K (test code = 5882099368) 4.0 mmol/L 3.5-5.0 CL (test code = 8015884190) 110 mmol/L 98-108 H CO2 TOTAL (test code = 5627645151) 25 mmol/L 23-31 AGAP (test code = 7585863983) 2-16 BUN (test code = 8422560826) 5 mg/dL 7-23 L GLUCOSE (test code = 3914345215) 80 mg/dL 70-110 CREATININE (test code = 2739053218) 0.71 mg/dL 0.60-1.25 TOTAL BILI (test code = 2446438316) 0.5 mg/dL 0.1-1.1 CALCIUM (test code = 2208497978) 7.7 mg/dL 8.6-10.6 L T PROTEIN (test code = 6272071749) 5.2 g/dL 6.3-8.2 L ALBUMIN (test code = 5218294218) 3.3 g/dL 3.5-5.0 L ALK PHOS (test code = 0439327819) 71 U/L 34-122 ALTv (test code = 1742-6) 16 U/L 5-50 AST(SGOT) (test code = 7267798384) 23 U/L 13-40 eGFR (test code = 0572195019) mL/min/1.73m2 KACI (test code = KACI) Association [...] imaging tests). Lab Interpretation (test code = 11657-6) Abnormal [facility] WITH [id number] 09:52:32* Test Item Value Reference Range Interpretation [...] 33.8 g/dL 31.2-35.0 RDW-SD (test code = 98744-4) 41.1 fL 38.5-51.6 RDW-CV (test code = 788-0) 12.9 % 12.1-15.4 PLT (test code = 777-3) See_Comment [Automated message] The system which generated this result transmitted reference range: 150 - 328 10*3/?L. The reference range was not used to interpret this result as normal/abnormal. MPV (test code = 93590-5) 11.1 fL 9.8-13.0 NRBC/100 WBC (test code = 6207950836) See_Comment [Automated message] The system which generated this result transmitted reference range: 0.0 - 10.0 /100 WBCs. The reference range was not used to interpret this result as normal/abnormal. NRBC x10^3 (test code = 6447925504) See_Comment [Automated message] The system which generated this result transmitted reference range: 10*3/?L. The reference range was not used to interpret this result as normal/abnormal. GRAN MAT (NEUT) % (test code = 770-8) 90.1 % IMM GRAN % (test code = 0606837360) 0.40 % LYMPH % (test code = 736-9) 5.4 % MONO % (test code = 5905-5) 3.8 % EOS % (test code = 713-8) 0.1 % BASO % (test code = 706-2) 0.2 % GRAN MAT x10^3(ANC) (test code = 8723571858) 14.75 10*3/uL 1.99-6.95 H IMM GRAN x10^3 (test code = 2785241510) 0.06 10*3/uL 0.00-0.06 LYMPH x10^3 (test code = 731-0) 0.88 10*3/uL 1.09-3.23 L MONO x10^3 (test code = 742-7) 0.62 10*3/uL 0.36-1.02 EOS x10^3 (test code = 711-2) 0.06-0.53 L BASO x10^3 (test code = 704-7) 0.03 10*3/uL 0.01-0.09 Lab Interpretation (test code = 71112-1) Abnormal [facility] Panel 20 + Lactic [id number] 09:16:12* Test Item Value Reference Range Interpretation Comme nts PH (test code = 2) 7.35-7.45 PCO2 (test code = 2358202342) See_Comment [Automated messa ge] The system which generated this result transmitted reference range: 35 - 45 mmHg. The reference range was not used to interpret this result as normal/abnormal. PO2 (test code = 6442481704) See_Comment H [Automated messa ge] The system which generated this result transmitted reference range: 80 - 100 mmHg. The reference range was not used to interpret this result as normal/abnormal. HCO3 (test code = 7092635290) See_Comment L [Automated messa ge] The system which generated this result transmitted reference range: 22 - 26 mEq/L. The reference range was not used to interpret this result as normal/abnormal. BE (test code = 5351584099) See_Comment L [Automated messa ge] The system which generated this result transmitted reference range: -3.0 - 3.0 mEq/L. The reference range was not used to interpret this result as normal/abnormal. THB (test code = 6598965018) 13.2 g/dL 13.5-18.0 L %O2HB (test code = 0426076941) 98.8 % 94.0-99.0 %COHB ART (test code = 6391901607) 0.3 % 0.0-1.5 %METHB ART (test code = 9084390636) 0.2 % 0.4-1.5 L VOL%O2 ART (test code = 6932940628) 18.8 % 15.0-23.0 NA (test code = 1928505546) 139 mmol/L 135-145 K+ (test code = 1668466208) 3.9 mmol/L 3.5-5.0 AC CA IONZ (test code = 6419178158) 4.60 mg/dL 4.50-5.30 GLUCOSE (test code = 3885908325) 88 mg/dL 70-110 LACTIC ACID (test code = 2691237998) 1.04 mmol/L 0.50-2.20 Lab Interpretation (test code = 87628-7) Abnormal [facility][H] Drug Screen Urine (9 Drugs)2019-07-20 15:46:01* [...] Negative Urine Propoxyphene Screen (test code = 72722-1) Negative Negative Urine Drug Screen Note (test [...] 50 ng/mLMethadone 300 ng/mLUrine alcohol 20 mg/dL [place] Physicians[H] Drug Screen Urine (9 Drugs)2019-02-24 13:44:01* [...] Negative Urine Propoxyphene Screen (test code = 98677-3) Negative Negative Urine Drug Screen Note (test [...] 50 ng/mLMethadone 300 ng/mLUrine alcohol 20 mg/dL [facility]"
[2024-06-01] MEDS ORDERED: DIAZEPAM 5 MG TABLET ONE (00:43)
[2024-06-01] MEDS ORDERED: NA CHLORIDE 0.9% 1,000 ML ONE (00:43)
[2024-06-01 01:04] LABS: Absolute Basophils 0.1 K/uL (0-0.5); Absolute Eosinophils 0.1 K/uL (0-0.5); Absolute Lymphocytes (CBC) 2.3 K/uL (0.7-4.9); Absolute Monocytes 0.6 K/uL (0.1-1.3); Absolute Neutrophil 5.2 K/uL (1.8-8.0); Basophils % 0.6 % (0-1.3); Eosinophils % 0.8 % (0-4.4); Hemoglobin 14.3 g/dL (13.6-17.9); Lymphocytes % 27.7 % (15.3-44.8); MCH 30.4 pg (27.0-35.0); MCHC 33.2 g/dL (32.0-36.0); MCV 91.4 fL (80-100); MPV 8.9 fL (7.6-11.3); Monocytes % 7.6 % (3.3-12.3); Neutrophils % 63.3 % (41.7-73.7); Platelets 258 thou/uL (152-406); Red Cell Distribution Width 13.9 % (12.1-15.2)
[2024-06-01 01:19] LABS: ALT/SGPT 20 U/L (16-61); AST/SGOT 13 U/L (15-37); Albumin 4.3 g/dL (3.4-5.0); Albumin/Globulin Ratio 1.5 (1.1-1.8); Alkaline Phosphatase 111 U/L (45-117); Anion Gap 7.8 mEq/L (5.0-15.0); BUN Blood Urea Nitrogen 12 mg/dL (7-18); Bicarbonate 29 mEq/L (21-32); Bilirubin Direct 0.3 mg/dL (0-0.2); Bilirubin Indirect, Calculated 0.5 mg/dL (0.2-0.8); Bilirubin Total 0.8 mg/dL (0.2-1.0); Globulin 2.9 g/dL (2.3-3.5); Glomerular Filtration Rate 132 ml/min (=/>90); Glucose Level 117 mg/dL (74-106); Potassium 3.8 mEq/L (3.5-5.1); Protein, Total 7.2 g/dL (6.4-8.2); Sodium Level 139 mEq/L (136-145)
[2024-06-01 01:31] LABS: PT Prothrombin Time 11.1 SECONDS (9.4-12.5); Protime INR 0.99
--- NOTE | 2024-06-01 01:34 | EDPHYS ---
Physician Documentation [facility] Name: Chan Gale Age: 23 yrs Sex: Male : 2000 Arrival Date: 05/31/2024 Time: 23:58 Bed 16 Private MD: ED Physician William Espinosa HPI: 06/01 00:52 This 23 yrs old Male presents to ER via [employer] with complaints of jasmeet Anxiety. 00:52 The patient or guardian reports pain. The complaints affect the forehead. Context of jasmeet injury: The problem was sustained at home, resulted from a fall. Onset: The symptoms/episode began/occurred. Associated signs and symptoms: Loss of consciousness: This patient did not experience any loss of consciousness. Pertinent positives: headache. The patient presents with trouble concentrating. Possible causes: head injury, a direct blow, a fall. Severity of symptoms: At their worst the symptoms were mild, in the emergency department the symptoms are unchanged. Historical: - Allergies: 00:10 No Known Allergies; lg3 - PMHx: 00:10 Bipolar disorder; adhd; Anxiety; avoident restrictive food intact disorder; Depression; lg3 drug abuse; - PSHx: 00:10 None; lg3 - Immunization history:: Adult Immunizations up to date. - Infectious Disease History:: Denies. - Social history:: Smoking status: Patient reports the use of cigarette tobacco products, smokes one-half pack cigarettes per day, Reported history of juuling and/or vaping. Patient uses alcohol, occasionally. street drugs, marijuana. ROS: 00:54 Constitutional: Negative for fever, chills, and weight loss, Eyes: Negative for injury, jasmeet pain, redness, and discharge, ENT: Negative for injury, pain, and discharge, Neck: Negative for injury, pain, and swelling, Cardiovascular: Negative for chest pain, palpitations, and edema, Respiratory: Negative for shortness of breath, cough, wheezing, and pleuritic chest pain, Abdomen/GI: Negative for abdominal pain, nausea, vomiting, diarrhea, and constipation, Back: Negative for injury and pain, : Negative for injury, bleeding, discharge, and swelling, MS/Extremity: Negative for injury and deformity, Skin: Negative for injury, rash, and discoloration, Neuro: Negative for headache, weakness, numbness, tingling, and seizure, Allergy/Immunology: Negative for hives, rash, and allergies, Endocrine: Negative for neck swelling, polydipsia, polyuria, polyphagia, and marked weight changes, Hematologic/Lymphatic: Negative for swollen nodes, abnormal bleeding, and unusual bruising, 00:54 Psych: Positive for anxiety, Exam: 00:54 Constitutional: This is a well developed, well nourished patient who is awake, alert, jasmeet and in no acute distress. Head/Face: Normocephalic, atraumatic. Eyes: Pupils equal round and reactive to light, extra-ocular motions intact. Lids and lashes normal. Conjunctiva and sclera are non-icteric and not injected. Cornea within normal limits. Periorbital areas with no swelling, redness, or edema. ENT: Nares patent. No nasal discharge, no septal abnormalities noted. Tympanic membranes are normal and external auditory canals are clear. Oropharynx with no redness, swelling, or masses, exudates, or evidence of obstruction, uvula midline. Mucous membranes moist. Neck: Trachea midline, no thyromegaly or masses palpated, and no cervical lymphadenopathy. Supple, full range of motion without nuchal rigidity, or vertebral point tenderness. No Meningismus. Chest/axilla: Normal chest wall appearance and motion. Nontender with no deformity. No lesions are appreciated. Cardiovascular: Regular rate and rhythm with a normal S1 and S2. No gallops, murmurs, or rubs. Normal PMI, no JVD. No pulse deficits. Respiratory: Lungs have equal breath sounds bilaterally, clear to auscultation and percussion. No rales, rhonchi or wheezes noted. No increased work of breathing, no retractions or nasal flaring. Abdomen/GI: Soft, non-tender, with normal bowel sounds. No distension or tympany. No guarding or rebound. No evidence of tenderness throughout. Back: No spinal tenderness. No costovertebral tenderness. Full range of motion. Male : Normal genitalia with no discharge or lesions. Skin: Warm, dry with normal turgor. Normal color with no rashes, no lesions, and no evidence of cellulitis. MS/ Extremity: Pulses equal, no cyanosis. Neurovascular intact. Full, normal range of motion. Neuro: Awake and alert, GCS 15, oriented to person, place, time, and situation. Cranial nerves II-XII grossly intact. Motor strength 5/5 in all extremities. Sensory grossly intact. Cerebellar exam normal. Normal gait. Psych: Awake, alert, with orientation to person, place and time. Behavior, mood, and affect are within normal limits. 00:54 ECG was reviewed by the Attending Physician. Vital Signs: 00:08 BP 98 / 66; Pulse 98; Resp 19 S; Temp 97.9(O); Pulse Ox 99% on R/A; Weight 49.9 kg (R); lg3 Height 5 ft. 8 in. (R); Pain 0/10; 02:41 BP 110 / 75; Pulse 87; Resp 17 S; Pulse Ox 99% on R/A; lg3 00:08 Body Mass Index 16.73 (49.90 kg, 172.72 cm) lg3 00:08 Pain Scale: Adult lg3 [place] Coma Score: 00:52 Eye Response: spontaneous(4). Motor Response: obeys commands(6). Verbal Response: jasmeet oriented(5). Total: 15. 00:59 Eye Response: spontaneous(4). Motor Response: obeys commands(6). Verbal Response: jasmeet oriented(5). Total: 15. MDM: 00:00 Patient medically screened. jasmeet 00:59 Differential diagnosis: Contusion of Hematoma on Intracranial bleed- Concussion. jasmeet Differential Diagnosis: electrolyte abnormality, alcohol intoxication, hypoglycemia, intracranial bleed, overdose, pneumonia, seizure, sepsis, TIA, UTI, volume depletion. Data reviewed: vital signs, nurses notes, lab test result(s), EKG. Consideration of Admission/Observation Escalation of care including admission/observation considered. I considered the following discharge prescriptions or medication management in the emergency department Medications were administered in the Emergency Department. See MAR. Independent interpretation of the following test(s) in the Emergency Department EKG: See my EKG interpretation above. Test considered but Not performed: MRI: no mri. Historians other than the Patient: EMS: ems/ police. Care significantly affected by the following chronic conditions: bipolar, adhd, depression, anxiety. Counseling: I had a detailed discussion with the patient and/or guardian regarding the historical points, exam findings, and any diagnostic results supporting the discharge/admit diagnosis, lab results, radiology results, the need for outpatient follow up, for definitive care, a family practitioner, a psychiatrist. 06/01 00:32 Order name: Acetaminophen; Complete [facility]: 01[facility] 06/01 00:32 Order name: Basic Metabolic Panel; Complete Time: : [facility] 06/01 00:32 Order name: CBC with Diff; Complete Time: : [facility] 06/01 00:32 Order name: ETOH Level; Complete Time: 01:33 [facility] 06/01 00:32 Order name: Hepatic Function; Complete Time: : [facility] 06/01 00:32 Order name: PT-INR; Complete Time: : [facility] 06/01 00:32 Order name: Ptt, Activated; Complete Time: 01: [facility] 06/01 00:32 Order name: Salicylate [facility] 06/01 00:32 Order name: Urine Drug Screen [facility] 06/01 00:32 Order name: CT Head Brain wo Cont rv1 06/01 00:15 Order name: EKG; Complete Time: 00:16 lg3 06/01 00:32 Order name: EKG - Nurse/Tech; Complete Time: 01: [facility] 06/01 00:32 Order name: IV Saline Lock; Complete Time: 01: [facility] 06/01 00:32 Order name: Labs collected and sent; Complete Time: 01: [facility] 06/01 00:32 Order name: Suicide Screening ([place]); Complete Time: : [facility] EC:54 Rate is 105 beats/min. Rhythm is regular. QRS [place] is Normal. ME interval is normal. jasmeet QRS interval is normal. QT interval is normal. No Q waves. T waves are Normal. No ST changes noted. Clinical impression: Sinus tachycardia and No evidence of ischemia. Interpreted by me. Reviewed by me. Administered Medications: 01:20 Drug: NS 0.9% IV 1000 ml IV at 1 bolus Per protocol; 1000 mL bolus Route: IV; Rate: 1 lg3 bolus; Site: left antecubital; 02:42 Follow up: Response: No adverse reaction; IV Status: Completed infusion; IV Intake: lg3 1000ml 01:20 Drug: Diazepam PO 10 mg PO once Route: PO; lg3 02:42 Follow up: Response: No adverse reaction; Marked relief of symptoms; Anxiety decreased; lg3 RASS: Alert and Calm (0) Disposition Summary: 06/01/24 01:34 Discharge Ordered Notes: Location: Home jasmeet Problem: new jasmeet Symptoms: have improved jasmeet Condition: Stable jasmeet Diagnosis - Anxiety disorder, unspecified jasmeet - Fall on same level, unspecified jasmeet - Unspecified injury of head, initial encounter jasmeet - Abuse of other non-psychoactive substances jasmeet Followup: jasmeet - With: Private Physician - When: 2 - 3 days - Reason: Recheck today's complaints, Continuance of care, Re-evaluation by your physician Followup: jasmeet - With: Gaudencio Brown MD - When: 2 - 3 days - Reason: Recheck today's complaints, Re-evaluation by your physician Followup: jasmeet - With: Marty Armas MD - When: 2 - 3 days - Reason: Recheck today's complaints, Re-evaluation by your physician Discharge Instructions: - Discharge Summary Sheet jasmeet - Finding Treatment for Addiction jasmeet - Head Injury, Adult jasmeet - Substance Use Disorder jasmeet - Supporting Someone With an Addiction jasmeet - Head Injury, Adult, Anee-rd-Fgsx jasmeet - Facial or Scalp Contusion, Rcmw-ri-Jbqk jasmeet - Substance Use Disorder and Mental Illness jasmeet - Managing Anxiety, Adult jasmeet Forms: - Medication Reconciliation Form jasmeet - Antibiotic Education jasmeet - Prescription Opioid Use jasmeet - Patient Portal Instructions jasmeet - Leadership Thank You Letter jasmeet Signatures: Dispatcher [employer] William Estrada MD MD cha Able, Lacie, RN RN lg3
--- NOTE | 2024-06-01 01:34 | ER ---
Nurse's Notes [facility] Name: Chan Gale Age: 23 yrs Sex: Male : 2000 Arrival Date: 05/31/2024 Time: 23:58 Bed 16 Private MD: Diagnosis: Anxiety disorder, unspecified;Fall on same level, unspecified;Unspecified injury of head, initial encounter;Abuse of other non-psychoactive substances Presentation: 06/01 00:08 Chief complaint: [facility]. PD states that once PT placed in custody, PT lg3 began complaining of anxiety and became manic. Coronavirus screen: Client denies travel out of the [place] in the last 14 days. At this time, the client does not indicate any symptoms associated with coronavirus-19. Ebola Screen: No symptoms or risks identified at this time. Initial Sepsis Screen: Does the patient meet any 2 criteria? No. Patient's initial sepsis screen is negative. Does the patient have a suspected source of infection? No. Patient's initial sepsis screen is negative. Risk Assessment: Do you want to hurt yourself or someone else? Patient reports no desire to harm self or others. Onset of symptoms is unknown. 00:08 Method Of Arrival: Law Enforcement: [place] lg3 00:08 Acuity: SIRISHA 5 lg3 Triage Assessment: 00:10 General: Appears in no apparent distress. slender, Behavior is cooperative, fussy. lg3 Pain: Denies pain. EENT: No deficits noted. No signs and/or symptoms were reported regarding the EENT system. Neuro: Veras Agitation-Sedation Scale (RASS): +1 Restless Level of Consciousness is awake, alert, obeys commands, Oriented to person, place, time, situation. Cardiovascular: No deficits noted. Denies chest pain, shortness of breath, Capillary refill < 3 seconds Clubbing of nail beds is absent JVD is absent Patient's skin is warm and dry. Respiratory: No deficits noted. Airway is patent Respiratory effort is even, unlabored, Respiratory pattern is regular, symmetrical. GI: No deficits noted. No signs and/or symptoms were reported involving the gastrointestinal system. : No deficits noted. No signs and/or symptoms were reported regarding the genitourinary system. Derm: No deficits noted. No signs and/or symptoms reported regarding the dermatologic system. Skin is intact, is healthy with good turgor, Skin is dry, Skin is normal, Skin temperature is warm. Musculoskeletal: No deficits noted. No signs and/or symptoms reported regarding the musculoskeletal system. Circulation, motion, and sensation intact. Range of motion: intact in all extremities. Historical: - Allergies: 00:10 No Known Allergies; lg3 - PMHx: 00:10 Bipolar disorder; adhd; Anxiety; avoident restrictive food intact disorder; Depression; lg3 drug abuse; - PSHx: 00:10 None; lg3 - Immunization history:: Adult Immunizations up to date. - Infectious Disease History:: Denies. - Social history:: Smoking status: Patient reports the use of cigarette tobacco products, smokes one-half pack cigarettes per day, Reported history of juuling and/or vaping. Patient uses alcohol, occasionally. street drugs, marijuana. Screenin:14 [facility] ED Fall Risk Assessment (Adult) History of falling in the last 3 months, lg3 including since admission No falls in past 3 months (0 pts) Confusion or Disorientation No (0 pts) Intoxicated or Sedated No (0 pts) Impaired Gait No (0 pts) Mobility Assist Device Used No (0 pt) Altered Elimination No (0 pt) Score/Fall Risk Level 0 - 2 = Low Risk Oriented to surroundings, Maintained a safe environment, Educated pt \T\ family on fall prevention, incl call for assistance when getting out of bed, Assessed \T\ reinforced patient's understanding of fall precautions. Abuse screen: Denies threats or abuse. Denies injuries from another. Nutritional screening: No deficits noted. Tuberculosis screening: No symptoms or risk factors identified. Assessment: 00:14 General: see triage assessment. lg3 01:20 Reassessment: Patient appears in no apparent distress at this time. No changes from lg3 previously documented assessment. Patient and/or family updated on plan of care and expected duration. Pain level reassessed. Patient is alert, oriented x 3, equal unlabored respirations, skin warm/dry/pink. 02:41 Reassessment: Patient appears in no apparent distress at this time. No changes from lg3 previously documented assessment. Patient and/or family updated on plan of care and expected duration. Pain level reassessed. Patient is alert, oriented x 3, equal unlabored respirations, skin warm/dry/pink. Vital Signs: 00:08 BP 98 / 66; Pulse 98; Resp 19 S; Temp 97.9(O); Pulse Ox 99% on R/A; Weight 49.9 kg (R); lg3 Height 5 ft. 8 in. (R); Pain 0/10; 02:41 BP 110 / 75; Pulse 87; Resp 17 S; Pulse Ox 99% on R/A; lg3 00:08 Body Mass Index 16.73 (49.90 kg, 172.72 cm) lg3 00:08 Pain Scale: Adult lg3 Shabnam Coma Score: 00:52 Eye Response: spontaneous(4). Motor Response: obeys commands(6). Verbal Response: jasmeet oriented(5). Total: 15. 00:59 Eye Response: spontaneous(4). Motor Response: obeys commands(6). Verbal Response: jasmeet oriented(5). Total: 15. ED Course: 05/31 23:58 Patient arrived in ED. jj6 23:59 Nighat Phillips RN is Primary Nurse. lg3 04 00:00 William Espinosa MD is Attending Physician. jasmeet 00:10 Triage completed. lg3 00:10 Arm band placed on right wrist. lg3 00:14 Patient has correct armband on for positive identification. Placed in gown. Bed in low lg3 position. Call light in reach. Side rails up X 1. Client placed on continuous cardiac and pulse oximetry monitoring. NIBP monitoring applied. Door closed. Noise minimized. Warm blanket given. 00:14 EKG done, by ED staff, reviewed by William Espinosa MD. lg3 00:59 CT Head Brain wo Cont In Process Unspecified. EDMS 01:00 Inserted saline lock: 20 gauge in left antecubital area, using aseptic technique. Blood kmf collected. Flushed with 10 mL NS. 01:34 Gaudencio Brown MD is Referral Physician. jasmeet 01:34 Marty Armas MD is Referral Physician. jasmeet 02:43 No provider procedures requiring assistance completed. IV discontinued, intact, lg3 bleeding controlled, No redness/swelling at site. Pressure dressing applied. Administered Medications: 01:20 Drug: NS 0.9% IV 1000 ml IV at 1 bolus Per protocol; 1000 mL bolus Route: IV; Rate: 1 lg3 bolus; Site: left antecubital; 02:42 Follow up: Response: No adverse reaction; IV Status: Completed infusion; IV Intake: lg3 1000ml 01:20 Drug: Diazepam PO 10 mg PO once Route: PO; lg3 02:42 Follow up: Response: No adverse reaction; Marked relief of symptoms; Anxiety decreased; lg3 RASS: Alert and Calm (0) Medication: 00:14 VIS not applicable for this client. lg3 Intake: 02:42 IV: 1000ml; Total: 1000ml. lg3 Outcome: 01:34 Discharge ordered by MD. alamo 02:43 Discharged to home ambulatory, with family, lg3 02:43 Condition: stable 02:43 Discharge instructions given to patient, Instructed on discharge instructions, follow up and referral plans. Demonstrated understanding of instructions, follow-up care, 02:45 Patient left the ED. lg3 Signatures: Dispatcher [employer] EDWilliam Alexandra MD MD cha Able, Lacie, RN RN lg3 Bettie Murdock Kelsey Maroul [facility]
[2024-06-01 01:48] LABS: Barbiturates NEGATIVE (NEGATIVE); Benzodiazepines POSITIVE (NEGATIVE); Cocaine NEGATIVE (NEGATIVE); METHAMPHETAM NEGATIVE (NEGATIVE); Methadone NEGATIVE (NEGATIVE); Opiates NEGATIVE (NEGATIVE); Phencyclidine NEGATIVE (NEGATIVE); THC Cannibis POSITIVE (NEGATIVE)
[2024-06-01 03:02] VITALS: TEMP 97.9; O2SAT 99
[2024-06-01 03:03] VITALS: BP 110/75
--- NOTE | 2024-06-01 12:07 | EKG ---
Test Date: 2024-06-01 Test Time: 00:04:57 Quality Assurance Specialist: KVNG MEASUREMENT RESULTS: Intervals: Rate: 105 OH: 152 QRSD: 100 QT: 332 QTc: 438 [place]: P: 60 OH: 152 QRS: 90 T: 61 INTERPRETIVE STATEMENTS: Sinus tachycardia Right atrial enlargement Borderline ECG Compared to ECG 02/04/2024 19:43:37 Atrial abnormality now present Sinus rhythm no longer present Right bundle-branch block no longer present Electronically Signed On 06-01-24 12:06:00 CDT by Vikash Connelly
--- NOTE | 2024-06-01 15:48 | RAD REPORT ---
EXAM DESCRIPTION: CT Head Without Intravenous Contrast CLINICAL HISTORY: The patient is 23 years old and is Male; PAIN TECHNIQUE: Axial computed tomography images of the head/brain without intravenous contrast. Sagitt al and coronal reformatted images were created and reviewed. This CT exam was performed using one o r more of the following dose reduction techniques: automated exposure control, adjustment of the mA and/or kV according to patient size, and/or use of iterative reconstruction technique. COMPARISON: No relevant prior studies available. FINDINGS: Brain: Unremarkable. No hemorrhage. No significant white matter disease. No edema. Ventricles: Unremarkable. No ventriculomegaly. Bones/joints: Unremarkable. No acute fracture. Soft tissues: Unremarkable. Sinuses: Unremarkable as visualized. Mastoid air cells: Unremarkable as visualized. No mastoid effusion. IMPRESSION: No acute intracranial abnormality. Electronically signed by: Jens Mondragon MD 06/01/2024 02:26 AM CDT RP 8 Due to temporary technical issues with the PACS/Fluency reporting system, reports are being signed by the in house radiologist without review as a courtesy to ensure prompt reporting. The interpreting r adiologist is fully responsible for the content of the report.
== END 2024-06-01 02:45 | disposition home or self-care (01) ==
LOC: ER 23:58
DX: F41.9 Anxiety disorder, unspecified (principal); S09.90XA Unspecified injury of head, initial encounter; F55.8 Abuse of other non-psychoactive substances; W18.30XA Fall on same level, unspecified, initial encounter; F17.210 Nicotine dependence, cigarettes, uncomplicated
CPT/HCPCS: 93005; 85025; 80048; 36415; 85610; 80076; 85730; 80307; 70450; 96360; 99284; 80143; 80179; 82077; J7030

== ENCOUNTER 2024-08-01 19:37 | Emergency (ER) | payer OTHER ==
--- OUTSIDE RECORDS SUMMARY | 2024-08-01 19:43 | XMS REPORT | Continuity of Care Document ---
Author Name Unknown Address [address] [facility] [address] [place] [address] [facility] Address [address] [facility] [place] [address] Care Team Providers Care Economic Developer Name Role Phone KENYA FUENTES Primary Care Physician Unavailab DONTA Caceres Attending Clinician Unavailable Donta Cope Attending Clinician [phone] VERNON SAMANIEGO Attending Clinician UnavailIHSAN Pineda Attending Clinician UnavailTRINIDAD Tan Attending Clinician Unavailab TRINIDAD Ponce Attending Clinician UnavailTrinidad Sandhu DO Attending Clinician [phone] LAB47 Attending Clinician Unavailable ALLEN CANNON Attending Clinician Unavailable KENYA FUENTES Attending Clinician Unavailable DONTA HAYNES Attending Clinician UnavailDonta Raphael MD Attending Clinician [phone] CRISTINA AZUL Attending Clinician UnavailKenya Lazcano Attending Clinician [phone] Doctor Unassigned, Rafael Capo Attending Clinician U Marilu Bingham LVN Attending Clinician [phone] MICHAEL ASHRAF Attending Clinician Unavailable Luci SHAH, Campbell Quesada Attending Clinician [phone] Ayaan Yung DO Attending Clinician [phone] Michael Ashraf DO Attending Clinician Kim Patel PHD Attending Clinician KIM PATEL Attending Clinician JAZMYN Marie M.D. Attending Clinician CHANCE Mccormick APRN Attending Clinician Un available KENYA FUENTES Admitting Clinician Unavailable CAMPBELL GUERRERO Admitting Clinician Unava ilmatt Barillasderek Ayaan VARGAS Admitting Clinician [phone] Payers Payer Name Policy Type Policy Number Effective Date Expirati on Date Source HIM [facility] [id number] 2023 00:00:00 [facility] LAURENCE TAMAYO COPAY FOCUS 9 [id number] 2023 00:00:00 [facility] [id number] 2018 00:00:00 Problems Condition Name Condition Details Condition Category Status Onset Date Resolution Date Last Treatment Date Treating Clinician Comments Source Need for hepatitis C screening test Need for hepatitis C screening test Disease Active 10-20 00:00: 00 [facility] Low bone density for age Low bone density for age Disease Active 10-20 00:00: 00 [facility] Encounter to establish care Encounter to establish care Disease Active 2021-09 00:00: 00 [facility] RLS (restless legs syndrome) RLS (restless legs syndrome) Disease Active 2021-09 00:00: 00 [facility] BMI less than 19,adult BMI less than 19,adult Disease Active 2021-09 00:00: 00 [facility] Encounter to establish care Encounter to establish care Disease Active 2021-09 00:00: 00 [facility] Drug overdose of undetermin ed intent, initial encounter Drug overdose of undetermin ed intent, initial encounter Disease Active 2021-09 00:00: 00 [facility] Bipolar 1 disorder, mixed anxiety-de pression, moderate Bipolar 1 disorder, mixed anxiety-de pression, moderate Disease Recurre nce 2018-02-23 00:00: 00 [facility] Anxiety Anxiety Disease Active 02-23 00:00: 00 [facility] Underweigh t in childhood with BMI < 5th percentile Underweigh t in childhood with BMI < 5th percentile Disease Active 2017-09 00:00: 00 [facility] 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 Disease Active 04-19 00:00: 00 [facility] 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 Disease Active 04-19 00:00: 00 [facility] Nicotine abuse Nicotine abuse Disease Active 01-10 00:00: 00 [facility] Marijuana abuse, continuous Marijuana abuse, continuous Disease Active 01-10 00:00: 00 [facility] Attention deficit hyperactiv ity disorder (ADHD) Attention deficit hyperactiv ity disorder (ADHD) Disease Recurre nce 2006-09 00:00: 00 [facility] Major depressive disorder with current active episode, [...] nce abuse Problem [facility] Underweigh t in childhood with BMI < 5th percentile Underweigh t in childhood with BMI < 5th percentile Disease Resolve d 2017-09 00:00: 00 2019-08-18 00:00:00 2019-08-18 10:02:15 [facility] Bipolar 2 disorder, major depressive episode Bipolar 2 disorder, major depressive episode Disease Resolve d 2017-09 00:00: 00 2019-02-23 00:00:00 2019-02-23 15:24:57 [facility] Episode of recurrent major depressive disorder Episode of recurrent major depressive disorder Disease Resolve d 2017-0 23 00:00: 00 2019-02-23 00:00:00 2019-02-23 15:25:05 [facility] Esophageal reflux Esophageal reflux Disease Resolve d 2008-09 00:00: 00 2016-06-15 00:00:00 2016-06-15 20:21:02 [facility] SENSORY DISORDER SENSORY DISORDER Disease Resolve d 2006-09 00:00: 00 2016-06-15 00:00:00 2016-06-15 20:21:09 [facility] Bipolar disorder Bipolar disorder Disease Resolve d 2006-09 00:00: 00 2009-06-29 00:00:00 2022-04-13 00:12:08 [facility] Nonorganic enuresis Nonorganic enuresis Disease Resolve d 2006-09 00:00: 00 2009-05-18 00:00:00 2009-05-18 17:51:16 [facility] ASPERGER - continue to evaluate for ASPERGER - continue to evaluate for Disease Resolve d 2006-09 00:00: 00 2007-10-20 00:00:00 2007-10-20 16:52:33 [facility] Allergies, Adverse Reactions, Alerts Allergy Name Allergy Type Status Severity Reaction(s) Onset Date Inactive Date Treating Clinician Comments Source NO KNOWN ALLERGIE S Drug Class Active [facility] Social History Social Habit Start Date Stop Date Quantity Comments [facility] 2024-07-29 00:00:00 2024-07-29 00:00:00 Current non-drinker of alcohol (finding) [facility] Exposure to SARS-CoV-2 (event) 2022-11-18 00:00:00 2022-11-28 11:48:00 Not sure [facility] Alcohol intake 2022-10-20 00:00:00 2022-10-20 00:00:00 Current non-drinker of alcohol (finding) [facility] Tobacco Comment 2022-09-05 00:00:00 2022-09-05 00:00:00 Vapes [facility] Tobacco use and exposure 2022-09-05 00:00:00 2022-09-05 00:00:00 Smokeless tobacco non-user [facility] Cigarettes smoked current (pack per day) - Reported 2022-09-05 00:00:00 2022-09-05 00:00:00 [facility] History of Social function 2019-04-07 00:00:00 2019-04-07 00:00:00 [facility] History of tobacco use 2018-07-08 00:00:00 Cigarette Smoker [facility] Sex assigned at 2002 00:00:00 2000 00:00:00 Whitney Gomes - External Smoking Status Start Date Stop Date Source Never smoked tobacco (finding) [facility] Tobacco smoking consumption unknown Whitney Negrete Smokes tobacco daily 2022-09-05 00:00:00 [facility] Ex-smoker 2022-09-01 00:00:00 2022-09-01 00:00:00 [facility] Medications Ordered Medication Name Filled Medication Name Start Date Stop Date Current Medication? Ordering Clinician Indication Dosage Frequency Signature (SIG) Comments Components Source ketorolac (TORADOL) injection 60 mg 2023-09 17:30: 00 07-29 17:31 :00 No 60mg 60 mg, Intramuscu lar, ONCE, 1 dose, On Thu07/29/24 at 1230, Routine [facility] gabapentin 100 mg capsule 2023-09 00:00: 00 08-04 05:59 :00 Yes [id number] 100mg Take 1 capsule by mouth in the morning and 1 capsule at noon and 1 capsule in the evening. Do all this for 5 days. [facility] NaCl 0.9% (NS) bolus infusion 2,000 mL 06-07 02:00: 00 06-07 03:10 :00 No 2000mL at 999 mL/hr, 2,000 mL, IV Infusion, ONCE, 1 dose, On Thu06/06/24 at 2100, MARIBEL [facility] hydrOXYzine (ATARAX) tablet 25 mg 06-07 01:45: 00 06-07 02:06 :00 No 25mg 25 mg, Oral, ONCE, 1 dose, On Thu06/06/24 at 2045, MARIBEL [facility] ondansetron (ZOFRAN) 4 mg tablet 12-02 00:00: 00 12-13 04:59 :00 No [id number] 4mg Take 1 tablet by mouth every 8 (eight) hours as needed for Nausea and Vomiting (N/V) for up to 10 days. [facility] OXcarbazepi ne 600 mg tablet 2021-09 14:31: 18 09-05 00:00 :00 No 600mg Take 600 mg by mouth 2 (two) times daily. [facility] LORazepam 1 mg Cp24 2021-09 14:27: 07 09-05 00:00 :00 No 1mg Take 1 mg by mouth 2 (two) times daily. [facility] olanzapine (ZYPREXA ORAL) 2021-09 14:26: 27 Yes Take by mouth 2 (two) times daily. [facility] gabapentin 600 mg tablet 2021-09 14:26: 27 Yes 600mg Take 600 mg by mouth in the morning and 600 mg at noon and 600 mg in the evening. [facility] SERTraline 100 mg tablet 2021-09 14:19: 22 09-05 00:00 :00 No 100mg Take 100 mg by mouth daily. [facility] nicotine (NICODERM) 21 mg/24 hr patch 1 Patch 2021-09 19:45: 00 Yes 1{patch } 1 Patch, Topical, Administer over 24 Hours, Q24H, First dose on Thu09/02/22 at 1345, Until Discontinu ed, Routine [facility] hydrOXYzine (ATARAX) tablet 10 mg 2021-09 19:30: 00 09-02 18:49 :00 No 10mg 10 mg, Oral, ONCE, 1 dose, On Thu09/02/22 at 1330, [facility] 2021-09 17:34: 50 Yes 600mg Take 600 mg by mouth in the morning and 600 mg at noon and 600 mg in the evening. [facility] OXcarbazepi ne 600 mg tablet 2021-09 15:34: 48 Yes 600mg Take 600 mg by mouth 2 (two) times daily. [facility] SERTraline 100 mg tablet 2021-09 15:34: 48 Yes 100mg Take 100 mg by mouth daily. Prescribed by [facility] - Apr 2019 [facility] olanzapine (ZYPREXA ORAL) 2021-09 15:34: 48 Yes Take by mouth 2 (two) times daily. Prescribed by [facility] - Apr 2019 [facility] LORazepam 1 mg Cp24 2021-09 15:34: 48 Yes 1mg Take 1 mg by mouth 2 (two) times daily. [facility] gabapentin 600 mg tablet 2021-09 15:34: 48 Yes 600mg Take 600 mg by mouth in the morning and 600 mg at noon and 600 mg in the evening. [facility] LORazepam (ATIVAN) tablet 1 mg 2021-09 15:00: 00 Yes 1mg 1 mg, Oral, QAM, First dose on Thu09/02/22 at 0900, Until Discontinu ed, Routine [facility] OLANZapine (ZyPREXA) tablet 15 mg 2021-09 03:00: 00 Yes 15mg 15 mg, Oral, QHS, First dose on Thu09/01/22 at 2100, Until Discontinu ed, Routine [facility] PARoxetine (PAXIL) tablet 20 mg 2021-09 03:00: 00 Yes 20mg 20 mg, Oral, QHS, First dose on Thu09/01/22 at 2100, Until Discontinu ed, Routine [facility] gabapentin (NEURONTIN) tablet 600 mg 2021-09 02:00: 00 Yes 600mg 600 mg, Oral, TID, First dose on Thu09/01/22 at 2000, Until Discontinu ed, [facility] acetaminoph en (TYLENOL) tablet 325 mg 2021-09 23:49: 00 09-02 00:20 :00 No 325mg 325 mg, Oral, ONCE, 1 dose, On Thu09/01/22 at 1800, Routine [facility] clonazePAM (KLONOPIN) tablet 1 mg 2021-09 16:15: 00 Yes 1mg 1 mg, Oral, Q8H, First dose (after last modificati on) on Thu09/01/22 at 1015, Until Discontinu ed, Routine [facility] ketamine (KETALAR) injection 50 mg 2021-09 23:30: 00 08-31 07:04 :00 No 50mg 50 mg, Slow IV Push, ONCE, 1 dose, On Thu08/31/22 at 1730, Routine [facility] clonazePAM 0.1 mg/mL oral suspension 1 mg 2021-09 20:00: 00 09-01 14:29 :11 No 1mg 1 mg, Oral, TID, First dose on Thu08/31/22 at 1400, Until Discontinu ed, Routine [facility] midazolam (VERSED) STD 50mg in [...] at maximum allowed dose, contact prescriber .
[facility] enoxaparin (LOVENOX) injection 40 mg 2021-09 15:00: 00 Yes 40mg 40 mg, Subcutaneo us, DAILY, First dose on Thu08/31/22 at 0900, Until Discontinu ed, Routine [facility] dexMEDEtomi dine 200 mcg in 0.9 % NaCl 50 mL (PRECEDEX) RTU IV infusion 2021-09 14:33: 19 09-02 00:39 :35 No .2ug/kg /h 0.2-1.5 mcg/kg/hr ?61 kg (3.05-22.8 75 mL/hr, rounded to 3.05-22.88 mL/hr), IV Infusion, TITRATE, Sedation-R ASS score (0 to -1), Starting on [place] 08/31/22 at 0833
In itiate infusion at 0.2 mcg/kg/hr and titrate by 0.1 mcg/kg/hr every 30 minutes to goal sedation score. Maximum dose = 1.5 mcg/kg/hr. If goal not maintained at maximum allowed dose, contact prescriber .
[facility] fentaNYL PF (SUBLIMAZE) STD 2,500 mcg in NaCl 0.9% (NS) 250 mL infusion RTU 2021-09 08:03: 47 09-01 11:18 :51 No 25ug/h 25-200 mcg/hr (2.5-20 mL/hr), IV Infusion, TITRATE, CPOT/Pain Scale Goals Determined by Provider, Starting on [place] 08/31/22 at 0203
In itiate infusion at 25 mcg/hr. Titrate by 25 mcg/hr every 1 minute to 15 minutes to identified goal pain and/or sedation scores. Maximum dose = 200 mcg/hr. If goal not maintained at maximum allowed dose, contact prescriber .
[facility] FENTanyl PF (SUBLIMAZE (PF)) injection 50 mcg 2021-09 08:00: 00 08-31 07:14 :00 No 50ug 50 mcg, Slow IV Push, ONCE, 1 dose, On Thu08/31/22 at 0200, Routine [facility] propofoL IV infusion 2021-09 07:24: [...] vials should be discarded after 12 hours.
[facility] lactated ringers IV infusion 1,000 mL 2021-09 07:15: 00 08-31 07:00 :00 No 1000mL at 999 mL/hr, 1,000 mL, Intravenou s, ONCE, 1 dose, On [place] 08/31/22 at 0115, Routine [facility] midazolam (VERSED) STD 50mg in [...] at maximum allowed dose, contact prescriber .
[facility] gabapentin 300 mg/6 mL (6 mL) solution 2021-09 23:09: 11 08-30 00:00 :00 No Take by mouth 2 (two) times daily. prescribed at [facility] no summer 2018 [facility] PARoxetine 20 mg tablet 2021-09 00:00: 00 Yes 20mg Take 20 mg by mouth in the morning. [facility] LORazepam 1 mg tablet 2021-09 00:00: 00 Yes 1mg Take 1 mg by mouth in the morning. [facility] SERTraline 100 mg tablet 10-22 18:52: 12 Yes 100mg Take 100 mg by mouth daily. Prescribed by [facility] - Apr 2019 [facility] olanzapine (ZYPREXA ORAL) 10-22 18:52: 09 Yes Take by mouth 2 (two) times daily. Prescribed by [facility] Apr 2019 [facility] gabapentin 300 mg/6 mL (6 mL) solution 10-22 18:52: 07 Yes Take by mouth 2 (two) times daily. prescribed at [facility] no summer 2018 [facility] OXcarbazepi ne (TRILEPTAL) 600 mg tablet 10-22 18:52: 06 Yes 600mg Take 600 mg by mouth 2 (two) times daily. [facility] Sertraline HCl - 50 MG Oral Tablet Sertraline HCl - 50 MG Oral Tablet 10-20 00:00: 00 Yes JAZMYN TEDDY M.D. Take 25 mg po daily x 15 days and then increase it to 50 mg po daily [facility] Sertraline HCl - 100 MG Oral Tablet Sertraline HCl - 100 MG Oral Tablet 2018-09 00:00: 00 Yes JAZMYN TEDDY M.D. 1 QD TAKE ONE (1) TABLET(S) BY MOUTH ONCE A DAY. [facility] OLANZapine 10 MG Oral Tablet OLANZapine 10 MG Oral Tablet 2018-09 00:00: 00 Yes JAZMYN TEDDY M.D. 1 TAKE 1 TABLET AT BEDTIME. [facility] Gabapentin 300 MG Oral Capsule Gabapentin 300 MG Oral Capsule 2018-09 00:00: 00 Yes JAZMYN TEDDY M.D. Q0.3333D TAKE 1 CAPSULE 3 TIMES DAILY. [facility] OXcarbazepi ne 300 MG Oral Tablet OXcarbazepi ne 300 MG Oral Tablet 16 00:00: 00 Yes JAZMYN ESPINAL M.D. Q0.5D TAKE ONE (1) TABLET(S) BY MOUTH TWICE A DAY. [facility] busPIRone 15 mg tablet 03-03 00:00: 00 Yes [id number] 15mg Take 1 tablet by mouth 2 (two) times daily. [facility] DULoxetine 60 mg capsule 03-01 00:00: 00 Yes [id number] 60mg Take 1 capsule by mouth daily. [facility] DULoxetine 30 mg capsule 03-01 00:00: 00 Yes [id number] 30mg Take 1 capsule by mouth daily. [facility] OXcarbazepi ne (TRILEPTAL) 600 mg tablet 02-23 19:48: 44 Yes 600mg Take 600 mg by mouth 2 (two) times daily. [facility] traZODONE 50 mg tablet 02-23 00:00: 00 Yes [id number] 25mg Take 0.5 tablets by mouth 2 (two) times daily. [facility] Multi-Vitam in TABS Multi-Vitam in TABS Yes M.A. [facility] Immunizations Ordered Immunization Name Filled Immunization Name Date Status Comments Source Gardasil 9 Intramuscular Suspension 2018-05-25 00:00:00 Completed [facility] Meningococcal, MCV4, unspecified conjugate formulation(groups A, C, Y and W-135) 2018-05-25 00:00:00 Completed [facility] Boostrix 5-2.5-18.5 Intramuscular Suspension 2018-05-21 00:00:00 Completed [facility] influenza virus vaccine, unspecified formulation 2017-09-03 00:00:00 Completed [facility] influenza virus vaccine, unspecified formulation 2016-07-01 00:00:00 Completed [facility] FluMist Quadrivalent Nasal Suspension 2015-08-06 00:00:00 Completed [facility] Boostrix 5-2.5-18.5 Intramuscular Suspension 2014-12-28 00:00:00 Completed [facility] Meningococcal, MCV4, unspecified conjugate formulation(groups A, C, Y and W-135) 2014-12-28 00:00:00 Completed [facility] influenza virus vaccine, unspecified formulation 2014-06-23 00:00:00 Completed [facility] Gardasil Intramuscular Suspension 2014-05-25 00:00:00 Completed [facility] Boostrix 5-2.5-18.5 Intramuscular Suspension 2014-05-25 00:00:00 Completed [facility] Meningococcal, MCV4, unspecified conjugate formulation(groups A, C, Y and W-135) 2014-05-25 00:00:00 Completed [facility] TDAP 2014-05-25 00:00:00 Completed [facility] Meningococcal Polysaccharide (groups A, C, Y and W-135) conjugate vaccine (MCV4P) 2014-05-25 00:00:00 Completed [facility] HPV 2014-05-25 00:00:00 Completed [facility] TDAP 2014-05-25 00:00:00 Completed [facility] Meningococcal Polysaccharide (groups A, C, Y and W-135) conjugate vaccine (MCV4P) 2014-05-25 00:00:00 Completed [facility] HPV 2014-05-25 00:00:00 Completed [facility] TDAP 2014-05-25 00:00:00 Completed [facility] Meningococcal Polysaccharide (groups A, C, Y and W-135) conjugate vaccine (MCV4P) 2014-05-25 00:00:00 Completed [facility] HPV 2014-05-25 00:00:00 Completed [facility] TDAP 2014-05-25 00:00:00 Completed [facility] Meningococcal Polysaccharide (groups A, C, Y and W-135) conjugate vaccine (MCV4P) 2014-05-25 00:00:00 Completed [facility] HPV 2014-05-25 00:00:00 Completed [facility] TDAP 2014-05-25 00:00:00 Completed [facility] Meningococcal Polysaccharide (groups A, C, Y and W-135) conjugate vaccine (MCV4P) 2014-05-25 00:00:00 Completed [facility] Tdap 2014-05-25 00:00:00 Completed [facility] HPV 2014-05-25 00:00:00 Completed [facility] Meningococcal Polysaccharide (groups A, C, Y and W-135) conjugate vaccine (MCV4P) 2014-05-25 00:00:00 Completed [facility] HPV 2014-05-25 00:00:00 Completed [facility] TDAP 2014-05-25 00:00:00 Completed [facility] Meningococcal Polysaccharide (groups A, C, Y and W-135) conjugate vaccine (MCV4P) 2014-05-25 00:00:00 Completed [facility] HPV 2014-05-25 00:00:00 Completed [facility] TDAP 2014-05-25 00:00:00 Completed [facility] Meningococcal Polysaccharide (groups A, C, Y and W-135) conjugate vaccine (MCV4P) 2014-05-25 00:00:00 Completed [facility] HPV 2014-05-25 00:00:00 Completed [facility] TDAP 2014-05-25 00:00:00 Completed [facility] Meningococcal Polysaccharide (groups A, C, Y and W-135) conjugate vaccine (MCV4P) 2014-05-25 00:00:00 Completed [facility] HPV 2014-05-25 00:00:00 Completed [facility] TDAP 2014-05-25 00:00:00 Completed [facility] Meningococcal Polysaccharide (groups A, C, Y and W-135) conjugate vaccine (MCV4P) 2014-05-25 00:00:00 Completed [facility] HPV 2014-05-25 00:00:00 Completed [facility] TDAP 2014-05-25 00:00:00 Completed [facility] Meningococcal Polysaccharide (groups A, C, Y and W-135) conjugate vaccine (MCV4P) 2014-05-25 00:00:00 Completed [facility] HPV 2014-05-25 00:00:00 Completed [facility] Tdap 2014-05-25 00:00:00 Completed [facility] TDAP 2014-05-25 00:00:00 Completed [facility] Meningococcal Polysaccharide (groups A, C, Y and W-135) conjugate vaccine (MCV4P) 2014-05-25 00:00:00 Completed [facility] HPV 2014-05-25 00:00:00 Completed [facility] Meningococcal Polysaccharide (groups A, C, Y and W-135) conjugate vaccine (MCV4P) 2014-05-25 00:00:00 Completed [facility] HPV 2014-05-25 00:00:00 Completed [facility] TDAP 2014-05-25 00:00:00 Completed [facility] Meningococcal Polysaccharide (groups A, C, Y and W-135) conjugate vaccine (MCV4P) 2014-05-25 00:00:00 Completed [facility] HPV 2014-05-25 00:00:00 Completed [facility] TDAP 2014-05-25 00:00:00 Completed [facility] Meningococcal Polysaccharide (groups A, C, Y and W-135) conjugate vaccine (MCV4P) 2014-05-25 00:00:00 Completed [facility] HPV 2014-05-25 00:00:00 Completed [facility] TDAP 2014-05-25 00:00:00 Completed [facility] Meningococcal Polysaccharide (groups A, C, Y and W-135) conjugate vaccine (MCV4P) 2014-05-25 00:00:00 Completed [facility] HPV 2014-05-25 00:00:00 Completed [facility] TDAP 2014-05-25 00:00:00 Completed [facility] Meningococcal Polysaccharide (groups A, C, Y and W-135) conjugate vaccine (MCV4P) 2014-05-25 00:00:00 Completed HPV 2014-05-25 00:00:00 Completed TDAP 2014-05-25 00:00:00 Completed [facility] Meningococcal Polysaccharide (groups A, C, Y and W-135) conjugate vaccine (MCV4P) 2014-05-25 00:00:00 Completed [facility] HPV 2014-05-25 00:00:00 Completed [facility] influenza virus vaccine, unspecified formulation 2009-08-09 00:00:00 Completed [facility] H1n1 Vaccine 2009-08-09 00:00:00 Completed [facility] Influenza Virus Vaccine 2009-08-09 00:00:00 Completed [facility] H1n1 Vaccine 2009-08-09 00:00:00 Completed [facility] Influenza Virus Vaccine 2009-08-09 00:00:00 Completed [facility] H1n1 Vaccine 2009-08-09 00:00:00 Completed [facility] Influenza Virus Vaccine 2009-08-09 00:00:00 Completed [facility] H1n1 Vaccine 2009-08-09 00:00:00 Completed [facility] Influenza Virus Vaccine 2009-08-09 00:00:00 Completed [facility] H1n1 Vaccine 2009-08-09 00:00:00 Completed [facility] Influenza Virus Vaccine 2009-08-09 00:00:00 Completed [facility] H1n1 Vaccine 2009-08-09 00:00:00 Completed [facility] Influenza Virus Vaccine 2009-08-09 00:00:00 Completed [facility] H1n1 Vaccine 2009-08-09 00:00:00 Completed [facility] Influenza Virus Vaccine 2009-08-09 00:00:00 Completed [facility] H1n1 Vaccine 2009-08-09 00:00:00 Completed [facility] Influenza Virus Vaccine 2009-08-09 00:00:00 Completed [facility] H1n1 Vaccine 2009-08-09 00:00:00 Completed [facility] Influenza Virus Vaccine 2009-08-09 00:00:00 Completed [facility] H1n1 Vaccine 2009-08-09 00:00:00 Completed [facility] Influenza Virus Vaccine 2009-08-09 00:00:00 Completed [facility] H1n1 Vaccine 2009-08-09 00:00:00 Completed [facility] Influenza Virus Vaccine 2009-08-09 00:00:00 Completed [facility] H1n1 Vaccine 2009-08-09 00:00:00 Completed [facility] Influenza Virus Vaccine 2009-08-09 00:00:00 Completed [facility] H1n1 Vaccine 2009-08-09 00:00:00 Completed [facility] Influenza Virus Vaccine 2009-08-09 00:00:00 Completed [facility] H1n1 Vaccine 2009-08-09 00:00:00 Completed [facility] Influenza Virus Vaccine 2009-08-09 00:00:00 Completed [facility] [facility] H1n1 Vaccine 2009-08-09 00:00:00 Completed [facility] Influenza Virus Vaccine 2009-08-09 00:00:00 Completed [facility] H1n1 Vaccine 2009-08-09 00:00:00 Completed [facility] Influenza Virus Vaccine 2009-08-09 00:00:00 Completed [facility] H1n1 Vaccine 2009-08-09 00:00:00 Completed Influenza Virus Vaccine 2009-08-09 00:00:00 Completed H1n1 Vaccine 2009-08-09 00:00:00 Completed [facility] Influenza Virus Vaccine 2009-08-09 00:00:00 Completed [facility] influenza virus vaccine, unspecified formulation 2009-07-04 00:00:00 Completed [facility] Influenza Virus Vaccine 2009-07-04 00:00:00 Completed [facility] Influenza Virus Vaccine 2009-07-04 00:00:00 Completed [facility] Influenza Virus Vaccine 2009-07-04 00:00:00 Completed [facility] Influenza Virus Vaccine 2009-07-04 00:00:00 Completed [facility] Influenza Virus Vaccine 2009-07-04 00:00:00 Completed [facility] Influenza Virus Vaccine 2009-07-04 00:00:00 Completed [facility] Influenza Virus Vaccine 2009-07-04 00:00:00 Completed [facility] Influenza Virus Vaccine 2009-07-04 00:00:00 Completed [facility] Influenza Virus Vaccine 2009-07-04 00:00:00 Completed [facility] Influenza Virus Vaccine 2009-07-04 00:00:00 Completed [facility] Influenza Virus Vaccine 2009-07-04 00:00:00 Completed [facility] Influenza Virus Vaccine 2009-07-04 00:00:00 Completed [facility] Influenza Virus Vaccine 2009-07-04 00:00:00 Completed [facility] Influenza Virus Vaccine 2009-07-04 00:00:00 Completed [facility] Influenza Virus Vaccine 2009-07-04 00:00:00 Completed [facility] Influenza Virus Vaccine 2009-07-04 00:00:00 Completed [facility] Influenza Virus Vaccine 2009-07-04 00:00:00 Completed [facility] Influenza Virus Vaccine 2009-07-04 00:00:00 Completed [facility] hepatitis A vaccine, pediatric/adolescent dosage, 2 dose schedule 2007-11-17 00:00:00 Completed [facility] Ipol Injection Injectable 2007-04-29 00:00:00 Completed [facility] DTaP, unspecified formulation 2007-04-29 00:00:00 Completed [facility] ProQuad Subcutaneous Injectable 2007-04-29 00:00:00 Completed [facility] hepatitis A vaccine, pediatric/adolescent dosage, 2 dose schedule 2007-04-29 00:00:00 Completed [facility] DTaP, unspecified formulation 2003-11-03 00:00:00 Completed [facility] Hib, Haemophilus influenzae type b vaccine, PRP-T conjugate 2003-11-03 00:00:00 Completed [facility] Pneumo (Prevnar 7) 2003-11-03 00:00:00 Completed [facility] M-M-R II Subcutaneous Injectable 2003-11-03 00:00:00 Completed [facility] Varivax 1350 PFU/0.5ML Subcutaneous Injectable 2003-11-03 00:00:00 Completed [facility] Hepatitis B, pediatric/adolescent dosage 2003-07-12 00:00:00 Completed [facility] Ipol Injection Injectable 2003-07-12 00:00:00 Completed [facility] Pneumo (Prevnar 7) 2003-07-12 00:00:00 Completed [facility] DTaP, unspecified formulation 2003-04-12 00:00:00 Completed [facility] Hib, Haemophilus influenzae type b vaccine, PRP-T conjugate 2003-04-12 00:00:00 Completed [facility] Pneumo (Prevnar 7) 2003-04-12 00:00:00 Completed [facility] Ipol Injection Injectable 2003-02-07 00:00:00 Completed [facility] DTaP, unspecified formulation 2003-02-07 00:00:00 Completed [facility] Hib, Haemophilus influenzae type b vaccine, PRP-T conjugate 2003-02-07 00:00:00 Completed [facility] Hepatitis B, pediatric/adolescent dosage 2002 00:00:00 Completed [facility] Ipol Injection Injectable 2002 00:00:00 Completed [facility] DTaP, unspecified formulation 2002 00:00:00 Completed [facility] Hib, Haemophilus influenzae type b vaccine, PRP-T conjugate 2002 00:00:00 Completed [facility] Pneumo (Prevnar 7) 2002 00:00:00 Completed [facility] Hepatitis B, pediatric/adolescent dosage 2002 00:00:00 Completed [facility] Influenza Virus Vaccine Unknown Completed [facility] H1n1 Vaccine Unknown Completed [facility] TDAP Unknown Completed [facility] Meningococcal Polysaccharide (groups A, C, Y and W-135) conjugate vaccine (MCV4P) Unknown Completed [facility] HPV Unknown Completed [facility] Vital Signs Vital Name Observation Time Observation Value Comments S ource Systolic blood pressure 2024-07-29 19:40:00 116 mm[Hg] [facility] Diastolic blood pressure 2024-07-29 19:40:00 78 mm[Hg] [facility] Heart rate 2024-07-29 19:40:00 93 /min [facility] Respiratory rate 2024-07-29 19:40:00 16 /min [facility] Oxygen saturation in Arterial blood by Pulse oximetry 2024-07-29 19:40:00 98 /min [facility] Body temperature 2024-07-29 16:40:00 36.39 Jeana [facility] Body height 2024-07-29 16:40:00 172.7 cm [facility] Body weight 2024-07-29 16:40:00 49.896 kg [facility] BMI 2024-07-29 16:40:00 16.73 kg/m2 [facility] Systolic blood pressure 2024-06-07 03:00:00 73 mm[Hg] [facility] Diastolic blood pressure 2024-06-07 03:00:00 64 mm[Hg] [facility] Body temperature 2024-06-07 03:00:00 36.61 Jeana [facility] Respiratory rate 2024-06-07 03:00:00 25 /min [facility] Oxygen saturation in Arterial blood by Pulse oximetry 2024-06-07 03:00:00 98 /min [facility] Heart rate 2024-06-07 00:52:00 67 /min [facility] Body height 2024-06-07 00:52:00 172.7 cm [facility] Body weight 2024-06-07 00:52:00 51.256 kg [facility] BMI 2024-06-07 00:52:00 17.18 kg/m2 [facility] Systolic blood pressure 2024-06-02 15:36:00 116 mm[Hg] [facility] Diastolic blood pressure 2024-06-02 15:36:00 68 mm[Hg] [facility] Heart rate 2024-06-02 15:36:00 88 /min [facility] Body temperature 2024-06-02 15:36:00 36.67 Jeana [facility] Respiratory rate 2024-06-02 15:36:00 16 /min [facility] Body height 2024-06-02 15:36:00 172.7 cm [facility] Body weight 2024-06-02 15:36:00 51.619 kg [facility] BMI 2024-06-02 15:36:00 17.30 kg/m2 [facility] Systolic blood pressure 2022-11-28 17:50:00 104 mm[Hg] [facility] Diastolic blood pressure 2022-11-28 17:50:00 52 mm[Hg] [facility] Heart rate 2022-11-28 17:50:00 106 /min [facility] Body height 2022-11-28 17:50:00 172.7 cm [facility] Body weight 2022-11-28 17:50:00 62.551 kg [facility] BMI 2022-11-28 17:50:00 20.97 kg/m2 [facility] Oxygen saturation in Arterial blood by Pulse oximetry 2022-11-28 17:50:00 93 /min [facility] Systolic blood pressure 2022-10-20 14:09:00 108 mm[Hg] [facility] Diastolic blood pressure 2022-10-20 14:09:00 65 mm[Hg] [facility] Heart rate 2022-10-20 14:09:00 95 /min [facility] Body temperature 2022-10-20 14:09:00 37.06 Jeana [facility] Body height 2022-10-20 14:09:00 172.7 cm [facility] Body weight 2022-10-20 14:09:00 58.968 kg [facility] BMI 2022-10-20 14:09:00 19.77 kg/m2 [facility] Oxygen saturation in Arterial blood by Pulse oximetry 2022-10-20 14:09:00 98 /min [facility] Systolic blood pressure 2022-09-05 20:22:00 101 mm[Hg] [facility] Diastolic blood pressure 2022-09-05 20:22:00 64 mm[Hg] [facility] Heart rate 2022-09-05 20:22:00 62 /min [facility] Body temperature 2022-09-05 20:22:00 36.33 Jeana [facility] Body height 2022-09-05 20:22:00 172.7 cm [facility] Body weight 2022-09-05 20:22:00 56.337 kg [facility] BMI 2022-09-05 20:22:00 18.88 kg/m2 [facility] Oxygen saturation in Arterial blood by Pulse oximetry 2022-09-05 20:22:00 97 /min [facility] Systolic blood pressure 2022-09-03 05:40:00 110 mm[Hg] [facility] Diastolic blood pressure 2022-09-03 05:40:00 81 mm[Hg] [facility] Heart rate 2022-09-03 05:40:00 64 /min [facility] Body temperature 2022-09-03 05:40:00 37.22 Jeana [facility] Respiratory rate 2022-09-03 05:40:00 18 /min [facility] Body height 2022-09-03 05:40:00 172.7 cm [facility] Body weight 2022-09-03 05:40:00 57.153 kg [facility] BMI 2022-09-03 05:40:00 19.16 kg/m2 [facility] Oxygen saturation in Arterial blood by Pulse oximetry 2022-09-03 05:40:00 100 /min [facility] Systolic blood pressure 2022-09-02 17:17:00 114 mm[Hg] [facility] Diastolic blood pressure 2022-09-02 17:17:00 75 mm[Hg] [facility] Heart rate 2022-09-02 17:17:00 81 /min [facility] Body temperature 2022-09-02 17:17:00 36.61 Jeana [facility] Respiratory rate 2022-09-02 17:17:00 18 /min [facility] Oxygen saturation in Arterial blood by Pulse oximetry 2022-09-02 17:17:00 99 /min [facility] Body weight 2022-09-01 19:40:00 61 kg [facility] BMI 2022-09-01 19:40:00 20.45 kg/m2 [facility] Body height 2022-09-01 19:36:00 172.7 cm [facility] BP Systolic 2019-10-20 12:54:00 118 mm[Hg] Location: RUE; Position: Sitting [facility] BP Diastolic 2019-10-20 12:54:00 53 mm[Hg] Location: RUE; Position: Sitting [facility] Height 2019-10-20 12:54:00 169 cm [facility] Weight 2019-10-20 12:54:00 125 [lb_av] [facility] Body Mass Index Calculated 2019-10-20 12:54:00 19.85 kg/m2 [facility] Heart Rate 2019-10-20 12:54:00 100 /min [facility] Heart Rate 2019-07-20 13:06:00 79 /min Location: L Brachial Artery; [facility] BP Systolic 2019-07-20 13:06:00 93 mm[Hg] Location: LUE; Position: Sitting [facility] BP Diastolic 2019-07-20 13:06:00 58 mm[Hg] Location: LUE; Position: Sitting [facility] Height 2019-07-20 13:06:00 66 [in_us] [facility] Weight 2019-07-20 13:06:00 132.375 [lb_av] [facility] Body Mass Index Calculated 2019-07-20 13:06:00 21.37 kg/m2 [facility] Temperature 2019-07-20 13:06:00 98.5 [degF] Method: Oral [facility] BP Systolic 2019-02-24 10:04:00 100 [...] Rate 2019-02-24 10:04:00 62 /min Quality: Normal [facility] Respiration Rate 2019-02-24 10:04:00 18 /min Quality: Normal [facility] O2 SAT 2019-02-24 10:04:00 100 % Source: [facility] BP Systolic 2019-02-07 10:53:00 103 mm[Hg] [facility] BP Diastolic 2019-02-07 10:53:00 63 mm[Hg] [facility] Height 2019-02-07 10:53:00 167.5 cm [facility] Weight 2019-02-07 10:53:00 44.8 kg [facility] Body Mass Index Calculated 2019-02-07 10:53:00 15.97 kg/m2 [facility] Heart Rate 2019-02-07 10:53:00 63 /min [facility] Temperature 2019-02-07 10:53:00 98 [degF] [facility] Procedures Procedure Date / Time Performed Performing Clinician Source XR SHOULDER 2+ VW LEFT 2024-07-29 17:33:31 Donta Deluna [facility] CREATINE KINASE 2024-06-07 01:23:00 Trinidad Estrada [facility] MAGNESIUM 2024-06-07 01:23:00 [facility] METABOLIC PANEL (55255) 2024-06-07 01:23:00 Trinidad Estrada [facility] CBC WITH DIFF 2024-06-07 01:23:00 [facility] 2024-06-07 01:23:00 Trinidad Estrada Un [facility] URINE DRUG (IMMUNOASSAY) - COMPREHENSIVE DRUG SCREEN W/O REFLEX 2024-06-07 01:23:00 Trinidad Estrada [facility] PATIENT FINANCIAL POLICY 2022-11-28 17:49:34 Doctor Unassigned, Rafael Capo [facility] EXTERNAL PROVIDER RECORDS 2022-11-19 06:01:00 Doctor Unassigned, Rafael Capo [facility] DEXA AXIAL (HIP AND SPINE) 2022-09-17 19:58:00 Kenya Fuentes [facility] EXTERNAL PROVIDER RECORDS 2022-09-16 06:01:00 Doctor Unassigned, Rafael Capo [facility] ASSIGNMENT OF BENEFITS 2022-09-05 19:47:49 Docto r Unassigned, Rafael Capo [facility] COMP. METABOLIC PANEL ([id number]) 2022-09-01 10:44:00 Marilyn Mitchell [facility] CBC WITH DIFF 2022-09-01 10:44:00 [facility] XR CHEST 1 VW 2022-09-01 10:15:00 Johann C[facility]ier [facility] CREATINE KINASE 2022-08-31 09:35:00 Dolly Beasley [facility] MAGNESIUM 2022-08-31 09:35:00 Jael Coppola [facility] TROPONIN I 2022-08-31 09:35:00 Jael Coppola [facility] COMP. METABOLIC PANEL ([id number]) 2022-08-31 09:35:00 Jael Coppola [facility] SALICYLATE 2022-08-31 09:35:00 Jael Coppola [facility] ETHANOL 2022-08-31 09:35:00 Jael Coppola [facility] CBC WITH DIFF 2022-08-31 09:35:00 Jael Coppola [facility] URINE DRUG (IMMUNOASSAY) - COMPREHENSIVE DRUG SCREEN 2022-08-31 09:07:00 Jael Coppola [facility] URINE DRUG (LCMSMS) - COMPREHENSIVE DRUG PANEL 2022-08-31 09:07:00 Jael Coppola [facility] AC PANEL 20 + LACTIC ACID 2022-08-31 09:01:00 Jael Coppola [facility] XR CHEST 1 VW 2022-08-31 05:44:00 Jael Coppola [facility] XR KUB 2022-08-31 05:44:00 Jael Coppola [facility] AUTHORIZATION FOR RELEASE OF PHI 2020-08-21 06:01:00 Doctor Unassigned, Rafael Capo [facility] [[facility]] CBC (INCLUDES DIFF/PLT) 2019-10-20 00:00:00 [facility] [[facility]] CMP W/EGFR 2019-10-20 00:00:00 [facility] [[facility]] LIPID PANEL 2019-10-20 00:00:00 [facility] [QL] TSH, 3RD GENERATION 2019-10-20 00:00:00 [facility] [Q] DRUG SCREEN,COMPREHENSIVE (URINE) 2019-07-20 00:00:00 [facility] [Q] DRUG SCREEN,COMPREHENSIVE (URINE) 2019-02-24 00:00:00 [facility] Encounters Start Date/Time End Date/Time Encounter Type Admission Type Attending [facility] Care Department Encounter ID Source 2024-07-29 11:41:00 2024-07-29 15:18:00 Emergency DONTA TABOR [facility] [id number] [facility] 2024-07-29 11:41:00 2024-07-29 15:18:00 Emergency Donta Deluna [facility] 1.2.840.114 350.1.13.10 4.2.7.2.686 [id number] [facility] 2024-06-09 09:30:00 2024-06-09 09:30:00 Outpatient VERNON SAMANIEGO [id number] [facility] 2024-06-08 00:00:00 2024-06-08 00:00:00 Outpatient VERNON SAMANIEGO [id number] [facility] 2024-06-07 00:00:00 2024-06-07 00:00:00 Outpatient IHSAN CHEN [id number] [facility] 2024-06-06 20:03:00 2024-06-06 22:17:00 Emergency X TRINIDAD ESTRADA [facility] [id number] [facility] 2024-06-06 20:03:00 2024-06-06 22:17:00 Emergency Trinidad Estrada [facility] ..840.114 350.1.13.10 4.2.7.2.686 [id number] [facility] 2024-06-02 11:20:00 2024-06-02 11:20:00 Outpatient ILEANA LAIRD [id number] [facility] 2024-06-02 10:30:00 2024-06-02 10:30:00 Outpatient IHSAN CHEN WHITNEY [id number] [facility] 2024-05-18 15:15:00 2024-05-18 15:15:00 Outpatient ALLEN CANNON WHITNEY LAIRD [id number] [facility] 2024-05-18 15:15:00 2024-05-18 15:15:00 Outpatient ALLEN CANNONRUMA LAIRD [id number] [facility] 2023-04-24 11:00:00 2023-04-24 11:00:00 Outpatient DONTA CUEVAS [facility] [id number] [facility] 2022-12-30 00:00:00 2022-12-30 00:00:00 Telephone Donta Haynes [facility] 1.2.840.114 350.1.13.10 4.2.7.2.686 [id number] [facility] 2022-12-03 14:00:00 2022-12-03 14:00:00 Outpatient KENYA CHOUDHARY [facility] [id number] [facility] 2022-12-02 00:00:00 2022-12-02 00:00:00 [facility] 1.2.840.114 350.1.13.10 4.2.7.2.686 [id number] [facility] 2022-11-28 12:00:00 2022-11-28 13:03:08 Outpatient DONTA CUEVAS [facility] [id number] [facility] 2022-11-28 12:00:00 2022-11-28 13:03:08 [facility] 1..840.114 350.1.13.10 4.2.7.2.686 [id number] [facility] 2022-11-28 00:00:00 2022-11-28 00:00:00 Orders Only Doctor Unassigned, Rafael Capo [facility] 1.2840.114 350.1.13.10 4.2.7.2.686 [id number] [facility] 2022-11-19 00:00:00 2022-11-19 00:00:00 Orders Only Doctor Unassigned, Rafael Capo [facility] 1.284.114 350.1.13.10 4.2.7.2.686 [id number] [facility] 2022-10-20 08:00:00 2022-10-20 08:45:36 Outpatient R KENYA FUENTES [facility] [id number] [facility] 2022-10-20 08:00:00 2022-10-20 08:45:36 Office Visit Alfredo Kenya [facility] 1.840.114 350.1.13.10 4.2.7.2.686 [id number] [facility] 2022-09-23 00:00:00 2022-09-23 00:00:00 [facility]phone [facility] 1.2.840.114 350.1.13.10 4.2.7.2.686 [id number] [facility] 2022-09-17 13:39:39 2022-09-17 23:59:00 Outpatient R KENYA FUENTES [facility] [id number] [facility] 2022-09-17 13:39:39 2022-09-17 23:59:00 Hospital Encounter Kenya Fuentes [facility] 1.840.114 350.1.13.10 4.2.7.2.686 [id number] [facility] 2022-09-16 00:00:00 2022-09-16 00:00:00 Orders Only Doctor Unassigned, Rafael Capo [facility] 1.2840.114 350.1.13.10 4.2.7.2.686 [id number] [facility] 2022-09-05 14:00:00 2022-09-05 14:51:04 Outpatient R KENYA FUENTES [facility] [id number] [facility] 2022-09-05 14:00:00 2022-09-05 14:51:04 Office Visit Kenya Fuentes [facility] 1.840.114 350.1.13.10 4.2.7.2.686 [id number] [facility] 2022-09-05 00:00:00 2022-09-05 00:00:00 Orders Only Doctor Unassigned, Rafael Capo [facility] 1.20.114 350.1.13.10 4.2.7.2.686 [id number] [facility] 2022-09-03 00:00:00 2022-09-03 00:00:00 Transition of Care Marilu Steiner 1..114 350.1.13.10 4.2.7.2.686 [id number] [facility] 2022-09-02 23:43:00 2022-09-02 23:56:00 Emergency X TRINIDAD ESTRADA [facility] [id number] [facility] 2022-09-02 23:43:00 2022-09-02 23:56:00 Emergency Trinidad Estrada [facility] 1.0.114 350.1.13.10 4.2.7.2.686 [id number] [facility] 2022-08-30 22:42:00 2022-09-02 15:34:00 Inpatient X MICHAEL ASHRAF [facility] [id number] [facility] 2022-08-30 22:42:00 2022-09-02 15:34:00 Hospital Encounter Luci Campbellnikunj Yung, Ayaan Michael Ashraf [facility] 1.2.840.114 350.1.13.10 4.2.7.2.686 [id number] [facility] 2020-08-21 00:00:00 2020-08-21 00:00:00 Orders Only Doctor Unassigned, Rafael Capo [facility] 1.2.840.114 350.1.13.10 4.2.7.2.686 [id number] 2020-08-21 00:00:00 2020-08-21 00:00:00 Orders Only Doctor Unassigned, Rafael Capo [facility] 1.2.840.114 350.1.13.10 4.2.7.2.686 [id number] [facility] 2019-12-08 13:05:19 2019-12-08 14:05:19 Office Visit Kim Patel [facility] 1.2.840.114 350.1.13.10 4.2.7.2.686 [id number] 2019-12-08 13:05:19 2019-12-08 14:05:19 Office Visit Kim Patel [facility] 1.2.840.114 350.1.13.10 4.2.7.2.686 [id number] [facility] 2019-12-08 13:15:00 2019-12-08 13:15:00 Outpatient R KIM PATEL [facility] [id number] [facility] 2019-10-20 13:00:00 2019-10-20 13:00:00 Appointmen t; JAZMYN ESPINAL M.D. MEMON, SABA, M.D. [facility] [id number] [facility] 2019-07-20 13:00:00 2019-07-20 13:00:00 Appointmen t; JAZMYN ESPINAL M.D. MEMON, SABA, M.D. [facility] Psychiatry Out[facility] - [facility] [id number] [facility] 2019-06-08 00:00:00 2019-06-08 00:00:00 Telephone Kim Patel [facility] 1.2.840.114 350.1.13.10 4.2.7.2.686 [id number] [facility] 2019-02-24 10:00:00 2019-02-24 10:00:00 Appointmen t; JAZMYN ESPINAL M.D. MEMON, SABA, M.D. [facility] [id number] [facility] 2019-02-07 10:20:00 2019-02-07 10:20:00 Appointmen t; CHANCE VAZQUEZ APRN WILLIAMSON, TIFFINY, APRN [facility] [id number] [facility] Results Test Description Test Time Test Comments Results Resul t Comments Source XR SHOULDER 2+ VW LEFT 2024-07-29 18:46:43 ORDERING PHYSICIAN: DONTA DELUNA HISTORY: ?pain TECHNIQUE:Three views of the left shoulder . Technical quality: Diagnostic. COMPARISON: None FINDINGS: There is no fracture or dislocation. ? ?[facility]remarkable. [id number] 01:51:42* Test Item Value Reference Range Interpretation Comme nts NA (test code = 9617499540) 138 mmol/L 135-145 K (test code = 0942872193) 3.6 mmol/L 3.5-5.0 CL (test code = 9020759380) 101 mmol/L 98-108 CO2 TOTAL (test code = 3211364670) 26 mmol/L 23-31 AGAP (test code = 4980281516) 11 2-16 BUN (test code = 6930964947) 7 mg/dL 7-23 GLUCOSE (test code = 5815650639) 98 mg/dL 70-110 CREATININE (test code = 2160-0) 0.84 mg/dL 0.60-1.25 TOTAL BILI (test code = 1442533891) 1.4 mg/dL 0.1-1.1 H CALCIUM (test code = 4464783088) 9.4 mg/dL 8.6-10.6 T PROTEIN (test code = 2265931835) 7.3 g/dL 6.3-8.2 ALBUMIN (test code = 7394660608) 4.6 g/dL 3.5-5.0 ALK PHOS (test code = 1266765830) 109 U/L 34-122 ALTv (test code = 1742-6) 18 U/L 5-50 AST(SGOT) (test code = 9330845811) 23 U/L 13-40 eGFR (test code = 62949-3) 127.2 mL/min/1.73m2 CKD-EPI eGFR (2020). Assuming creatinine has been stable day-to-day for at least three months, the eGFR indicates Category G1 (>= 90 mL/min/1.73 m2) Lab Interpretation (test code = 13715-7) [id number] 01:51:22* Test Item Value Reference Range Interpretation Comme nts CK (test code = 3004897594) 195 U/L 33-194 H Lab Interpretation (test cod e = 53771-0) [id number] 01:40:20* Test Item Value Reference Range Interpretation Comme nts WBC (test code = 6690-2) 13.35 4.20-10.70 H RBC (test code = 789-8) 4.64 4.26-5.52 HGB (test code = 718-7) 14.4 g/dL 12.2-16.4 HCT (test code = 4544-3) 42.7 % 38.4-49.3 MCV (test code = 787-2) 92.0 fL 81.7-95.6 MCH (test code = 785-6) 31.0 pg 26.1-32.7 MCHC (test code = 786-4) 33.7 g/dL 31.2-35.0 RDW-SD (test code = 81461-7) 44.1 fL 38.5-51.6 RDW-CV (test code = 788-0) 13.2 % 12.1-15.4 PLT (test code = 777-3) 266 150-328 MPV (test code = 00159-6) 10.2 fL 9.8-13.0 NRBC/100 WBC (test code = 2513483381) 0.0 0.0-10.0 NRBC x10^3 (test code = [id number]) See_Comment [Automated message] The system which generated this result transmitted reference range: 10*3/?L. The reference range was not used to interpret this result as normal/abnormal. GRAN MAT (NEUT) % (test code = 770-8) 75.6 % IMM GRAN % (test code = 3611675818) 0.40 % LYMPH % (test code = 736-9) 12.1 % MONO % (test code = 5905-5) 10.5 % EOS % (test code = 713-8) 0.9 % BASO % (test code = 706-2) 0.5 % GRAN MAT x10^3(ANC) (test code = 1130915597) 10.09 10*3/uL 1.99-6.95 H IMM GRAN x10^3 (test code = 1735726145) 0.06 10*3/uL 0.00-0.06 LYMPH x10^3 (test code = 731-0) 1.61 10*3/uL 1.09-3.23 MONO x10^3 (test code = 742-7) 1.40 10*3/uL 0.36-1.02 H EOS x10^3 (test code = 711-2) 0.12 10*3/uL 0.06-0.53 BASO x10^3 (test code = 704-7) 0.07 10*3/uL 0.01-0.09 Lab Interpretation (test code = 17260-0) [facility] (13482)2022-09-01 11:26:16* Test Item Value Reference Range Interpretation Comme nts NA (test code = 9183967212) 138 mmol/L 135-145 K (test code = 7451561926) 3.5 mmol/L 3.5-5.0 Slight hemolysis CL (test code = 2908271964) 110 mmol/L 98-108 H CO2 TOTAL (test code = 4466875211) 26 mmol/L 23-31 AGAP (test code = 4457680030) 2-16 BUN (test code = 2583985460) 9 mg/dL 7-23 Slight hemolysis GLUCOSE (test code = 0793787780) 99 mg/dL 70-110 CREATININE (test code = 7066289789) 0.73 mg/dL 0.60-1.25 TOTAL BILI (test code = 7022351166) 0.9 mg/dL 0.1-1.1 CALCIUM (test code = 3289942992) 8.2 mg/dL 8.6-10.6 L T PROTEIN (test code = 4788625216) 5.5 g/dL 6.3-8.2 L ALBUMIN (test code = 9181187438) 3.3 g/dL 3.5-5.0 L ALK PHOS (test code = 1497408153) 75 U/L 34-122 Slight hemolysis ALTv (test code = 1742-6) 16 U/L 5-50 AST(SGOT) (test code = 6745521202) 30 U/L 13-40 Slight hemolysis eGFR (test code = 9960173979) mL/min/1.73m2 KACI (test code = KACI) Association of Glomerular Filtration Rate (GFR) and Staging of Kidney Disease* + -----+ --------+ +| GFR (mL/min/1.73 m2) ?| With Kidney Damage ?| ?Without Kidney Damage+ +------- +---- --+| ?>90 ?| ?Stage one ?| ? Normal ?+ ------+ ---------+--------- +| ?60-89 ?| ?Stage two ?| ? Decreased GFR ? + -----+ --------+ +| ?30-59 ?| ?Stage three ?| ? Stage three ? + -----+ --------+ +| ?15-29 ?| ?Stage four ? | ? Stage four ?+ ------+ ---------+--------- +| ?<15 (or dialysis) ? ?| ?Stage five ? | ? Stage five ?+ ------+ ---------+--------- + *Each stage assumes the associated GFR [...] imaging tests). Lab Interpretation (test code = 74135-8) Abnormal [facility] WITH [id number] 11:03:17* Test Item Value Reference Range Interpretation Comme nts WBC (test code = 6690-2) See_Comment [Automated [employer]] The system which generated this result transmitted reference range: 4.20 - 10.70 10*3/?L. The reference range was not used to interpret this result as normal/abnormal. RBC (test code = 789-8) See_Comment L [Automated [employer]] The system which generated this result transmitted [...] g/dL 31.2-35.0 H RDW-SD (test code = 30897-4) 41.7 fL 38.5-51.6 RDW-CV (test code = 788-0) 13.2 % 12.1-15.4 PLT (test code = 777-3) See_Comment [Automated [employer]] The system which generated this result transmitted reference range: 150 - 328 10*3/?L. The reference range was not used to interpret this result as normal/abnormal. MPV (test code = 67727-9) 11.9 fL 9.8-13.0 NRBC/100 WBC (test code = 1206622873) See_Comment [Automated me ssage] The system which generated this result transmitted reference range: 0.0 - 10.0 /100 WBCs. The reference range was not used to interpret this result as normal/abnormal. NRBC x10^3 (test code = 5877474524) See_Comment [Automated messa ge] The system which generated this result transmitted reference range: 10*3/?L. The reference range was not used to interpret this result as normal/abnormal. GRAN MAT (NEUT) % (test code = 770-8) 62.3 % IMM GRAN % (test code = 6102009685) 0.20 % LYMPH % (test code = 736-9) 25.7 % MONO % (test code = 5905-5) 8.0 % EOS % (test code = 713-8) 3.4 % BASO % (test code = 706-2) 0.4 % GRAN MAT x10^3(ANC) (test code = 1015853236) 5.01 10*3/uL 1.99-6.95 IMM GRAN x10^3 (test code = 5022400639) 0.00-0.06 LYMPH x10^3 (test code = 731-0) 2.07 10*3/uL 1.09-3.23 MONO x10^3 (test code = 742-7) 0.64 10*3/uL 0.36-1.02 EOS x10^3 (test code = 711-2) 0.27 10*3/uL 0.06-0.53 BASO x10^3 (test code = 704-7) 0.03 10*3/uL 0.01-0.09 Lab Interpretation (test code = 36028-7) [id number] 17:58:42* Test Item Value Reference Range Interpretation Comme nts CK (test code = 8276753232) 180 U/L 33-194 Lab Interpretation (test cod e = 96936-0) [facility] [id number] 11:09:00* Test Item Value Reference Range Interpretation Comments TROPONIN I (test code = 5625487337) 0.001 ng/mL See_Comment [Automated message] The system [...] of biotin. Lab Interpretation (test code = 55816-4) Normal [facility]2022-[facility]-04 10:59:14 SALICYLATE<10mg/L111/01/2021 4:59 AM CSTUT LABORATORY SERVICESTherapeutic Range: ? Analgesic and Antipyretic Use ? 20-100 mg/L ? ? Anti- Inflammatory Use ? 100-250 mg/LToxic Range: ? Greater than 300 mg/LUnBaylor Scott & [facility] Trophy ClubETHANOL2022-12-04 10:59:14ALCOHOL<10mg/dL08/31/2022 4:59 AM CSTUTMB LABORATORY SERVICESToxic Greater than or equal to 80 mg/dL. NOTE: Whole blood values are approximately 10% to 15% lower than serum and plasma.[facility] [id number] 10:59:09* Test Item Value Reference Range Interpretation Comme nts ACETAMINOP (test code = 2465571412) 10.0-30.0 L KACI (test code = KACI) Toxic: Greater mamie n 200 ug/mL @ 4 hour post ingestion or greater than 50 ug/mL @ 12 hour post ingestion Lab Interpretation (test code = 25240-6) [facility]normal [facility]IUM2022-12-04 10:58:19* Test Item Value Reference Range Interpretation Comme nts MAGNESIUM (test code = 4374813630) 1.8 mg/dL 1.7-2.4 Lab Interpretation (test cod e = 05487-3) Normal [facility]. METABOLIC PANEL (17555)2022-08-31 10:58:18* Test Item Value Reference Range Interpretation Comme nts NA (test code = 6795137670) 141 mmol/L 135-145 K (test code = 0700951914) 4.0 mmol/L 3.5-5.0 CL (test code = 4618484350) 110 mmol/L 98-108 H CO2 TOTAL (test code = 6414937337) 25 mmol/L 23-31 AGAP (test code = 9418948497) 2-16 BUN (test code = 4427873146) 5 mg/dL 7-23 L GLUCOSE (test code = 3843032327) 80 mg/dL 70-110 CREATININE (test code = 1033281359) 0.71 mg/dL 0.60-1.25 TOTAL BILI (test code = 3378086922) 0.5 mg/dL 0.1-1.1 CALCIUM (test code = 5468049798) 7.7 mg/dL 8.6-10.6 L T PROTEIN (test code = 6631199347) 5.2 g/dL 6.3-8.2 L ALBUMIN (test code = 3331123130) 3.3 g/dL 3.5-5.0 L ALK PHOS (test code = 4701449688) 71 U/L 34-122 ALTv (test code = 1742-6) 16 U/L 5-50 AST(SGOT) (test code = 8144167844) 23 U/L 13-40 eGFR (test code = 2835013001) mL/min/1.73m2 KACI (test code = KACI) Association [...] imaging tests). Lab Interpretation (test code = 53308-7) Abnormal [facility] WITH [id number] 09:52:32* Test Item Value Reference Range Interpretation [...] 33.8 g/dL 31.2-35.0 RDW-SD (test code = 39744-7) 41.1 fL 38.5-51.6 RDW-CV (test code = 788-0) 12.9 % 12.1-15.4 PLT (test code = 777-3) See_Comment [Automated message] The system which generated this result transmitted reference range: 150 - 328 10*3/?L. The reference range was not used to interpret this result as normal/abnormal. MPV (test code = 07389-1) 11.1 fL 9.8-13.0 NRBC/100 WBC (test code = 5713795776) See_Comment [Automated message] The system which generated this result transmitted reference range: 0.0 - 10.0 /100 WBCs. The reference range was not used to interpret this result as normal/abnormal. NRBC x10^3 (test code = 2390995127) See_Comment [Automated message] The system which generated this result transmitted reference range: 10*3/?L. The reference range was not used to interpret this result as normal/abnormal. GRAN MAT (NEUT) % (test code = 770-8) 90.1 % IMM GRAN % (test code = 9635419608) 0.40 % LYMPH % (test code = 736-9) 5.4 % MONO % (test code = 5905-5) 3.8 % EOS % (test code = 713-8) 0.1 % BASO % (test code = 706-2) 0.2 % GRAN MAT x10^3(ANC) (test code = 0028500754) 14.75 10*3/uL 1.99-6.95 H IMM GRAN x10^3 (test code = 3899522843) 0.06 10*3/uL 0.00-0.06 LYMPH x10^3 (test code = 731-0) 0.88 10*3/uL 1.09-3.23 L MONO x10^3 (test code = 742-7) 0.62 10*3/uL 0.36-1.02 EOS x10^3 (test code = 711-2) 0.06-0.53 L BASO x10^3 (test code = 704-7) 0.03 10*3/uL 0.01-0.09 Lab Interpretation (test code = 35409-6) [facility]normal [facility] + Lactic [id number] 09:16:12* Test Item Value Reference Range Interpretation Comme nts PH (test code = 2) 7.35-7.45 PCO2 (test code = 9931537645) See_Comment [Automated messa ge] The system which generated this result transmitted reference range: 35 - 45 mmHg. The reference range was not used to interpret this result as normal/abnormal. PO2 (test code = 5548193336) See_Comment H [Automated messa ge] The system which generated this result transmitted reference range: 80 - 100 mmHg. The reference range was not used to interpret this result as normal/abnormal. HCO3 (test code = 7218262099) See_Comment L [Automated messa ge] The system which generated this result transmitted reference range: 22 - 26 mEq/L. The reference range was not used to interpret this result as normal/abnormal. BE (test code = 3197805165) See_Comment L [Automated messa ge] The system which generated this result transmitted reference range: -3.0 - 3.0 mEq/L. The reference range was not used to interpret this result as normal/abnormal. THB (test code = 4650022025) 13.2 g/dL 13.5-18.0 L %O2HB (test code = 0010851629) 98.8 % 94.0-99.0 %COHB ART (test code = 1028266770) 0.3 % 0.0-1.5 %METHB ART (test code = 7126783592) 0.2 % 0.4-1.5 L VOL%O2 ART (test code = 7011749251) 18.8 % 15.0-23.0 NA (test code = 1831448504) 139 mmol/L 135-145 K+ (test code = 1978581761) 3.9 mmol/L 3.5-5.0 AC CA IONZ (test code = 2155040326) 4.60 mg/dL 4.50-5.30 GLUCOSE (test code = 1967515928) 88 mg/dL 70-110 LACTIC ACID (test code = 2260834792) 1.04 mmol/L 0.50-2.20 Lab Interpretation (test code = 72435-7) Abnormal [facility][H] Drug Screen Urine (9 Drugs)2019-07-20 15:46:01* Test [...] Negative Urine Propoxyphene Screen (test code = 67303-4) Negative Negative Urine Drug Screen Note (test [...] 50 ng/mLMethadone 300 ng/mLUrine alcohol 20 mg/dL [facility][H] Drug Screen Urine (9 Drugs)2019-02-24 13:44:01* [...] Negative Urine Propoxyphene Screen (test code = 36993-1) Negative Negative Urine Drug Screen Note (test [...] 50 ng/mLMethadone 300 ng/mLUrine alcohol 20 mg/dL [facility] Notes Date/Time Note Provider Source 2024-07-29 15:17:30 Pt given printed and verbal discharge instructions regarding contusion of L shoulder. Prescriptions provided Pt verbalized understanding of instructions, pt awake alert oriented, resp reg unlabored, skin w/d, color appropriate for race, moves all ext well,pt encouraged to follow up with pcp. Advised to seek medical attention for new/prolonged/worsening of symptoms. No adverse reaction to meds given in ER noted upon discharge Awake, alert oriented, resp reg unlabored, skin w/d, pt leaving amb with steady gait, in no apparent distress. [facility] 2024-07-29 11:36:32 Pt arrived ambulatory with complaints of L shoulder pain x1 days after wrestling with friends. Pt has slowed speech, denies drug use. Mildred Valverde RN [facility] 2024-06-06 22:16:43 Pt given printed and verbal discharge instructions regarding weakness, encouraged hydration, Pt verbalized understanding of instructions, pt awake alert oriented, resp reg unlabored, skin w/d, color appropriate for race, moves all ext well,pt encouraged to follow up with pcp Advised to seek medical attention for new/prolonged/worsening of symptoms, No adverse reaction to meds given in ER noted upon discharge PIV d'cd, dressing to site, catheter in tact. Awake, alert oriented, resp reg unlabored, skin w/d, pt leaving ambulatory without assist, in no apparent distress, Chance Lynn RN [facility] 2024-06-06 19:49:40 Pt arrives in wheelchair with grandmother, reporting that he is "out of energy." Reports that he has an eating disorder, ARFID, & osteoporosis, and says today he is just unable to do anything. He states he felt as though he was having a "heat stroke" earlier today when walking, and he wanted to come in and be checked out. Mayra Estrada RN 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 No nausea, vomiting or diarrhea. No chest pain or pressure. No shortness of breath. No fevers or chills. He has a history of avoidant restrictive food intake disorder and reports to eat very little at baseline. Today he spent most of the day outside and reports he had nothing to eat and maybe a glass of water. He also has a history of bipolar disorder and anxiety. He reports he took a Paxil tablet today for the first time in maybe 6 months. He reports he also uses his mother's Ativan and last for dose 2 or 3 days ago. Here for evaluation. Past Medical History/Immunizations: Past Medical History: Diagnosis Date Anxiety Avoidant-restrictive food intake disorder (ARFID) Bipolar 2 disorder, major depressive episode 08/13/2018 Bipolar affective disorder, current episode mixed Bipolar affective disorder, currently depressed, mild Episode of recurrent major depressive disorder 04/19/2018 GERD (gastroesophageal reflux disease) Underweight in childhood with BMI < 5th percentile 08/17/2018 Tetanus received in last 5 years: No Allergies: No Known Allergies Past Social History: Tobacco Use Every Day; Cigarettes: Last attempted to quit 07/08/2018 Smokeless Tobacco: Never used smokeless tobacco. Comments: Vapes Alcohol Use No. Drug Use Yes; Marijuana; 1 time per week. Comments: not interesting in quitting; sees no dangers Sexual Activity Not sexually active. Past Surgical History: History reviewed. No pertinent surgical history. Review of Systems: Review of Systems Constitutional: Negative for chills and fever. Respiratory: Negative for cough and shortness of breath. Gastrointestinal: Negative for abdominal pain, diarrhea, nausea and vomiting. Genitourinary: Negative for dysuria. Musculoskeletal: Negative for arthralgias, neck pain and neck stiffness. Skin: Negative for wound. Neurological: Positive for weakness. Negative for dizziness. Psychiatric/Behavioral: Negative for agitation. Endocrine: Negative for goiter. Physical Exam: ED Triage Vitals [06/06/241951] Weight 51.3 kg (113 lb) Actual or estimated Estimated by patient/family report Height 1.727 m (5' 8") BP 122/67 Pulse 67 Resp 16 Temp 36.9 ?C (98.4 ?F) Temp source Oral SpO2 100 % Measured on Room air Physical Exam Vitals and nursing note reviewed. Constitutional: Appearance: Normal appearance. He is underweight. HENT: Mouth/Throat: Mouth: Mucous membranes are dry. Cardiovascular: Rate and Rhythm: Normal rate and regular rhythm. Pulses: Normal pulses. Pulmonary: Effort: Pulmonary effort is normal. No respiratory distress. Breath sounds: No stridor. No wheezing or rhonchi. Abdominal: General: There is no distension. Palpations: Abdomen is soft. There is no mass. Tenderness: There is no abdominal tenderness. There is no guarding. Hernia: No hernia is present. Musculoskeletal: General: Normal range of motion. Cervical back: Normal range of motion and neck supple. Skin: General: Skin is warm and dry. Neurological: General: No focal deficit present. Mental Status: He is alert and oriented to person, place, and time. Radiology: No orders to display Lab Results: Lab Results CBC WITH DIFF - Abnormal Result Value Ref Range WBC 13.35 (*) 4.20 - 10.70 10*3/?L RBC 4.64 4.26 - 5.52 10*6/?L HGB 14.4 12.2 - 16.4 g/dL HCT 42.7 38.4 - 49.3 % MCV 92.0 81.7 - 95.6 fL MCH 31.0 26.1 - 32.7 pg MCHC 33.7 31.2 - 35.0 g/dL RDW-SD 44.1 38.5 - 51.6 fL RDW-CV 13.2 12.1 - 15.4 % PLT 266 150 - 328 10*3/?L MPV 10.2 9.8 - 13.0 fL NRBC/100 WBC 0.0 0.0 - 10.0 /100 WBCs NRBC x10 3 <0.01 10*3/?L GRAN MAT (NEUT) % 75.6 % IMM GRAN % 0.40 % LYMPH % 12.1 % MONO % 10.5 % EOS % 0.9 % BASO % 0.5 % GRAN MAT x10 3 (ANC) 10.09 (*) 1.99 - 6.95 10*3/uL IMM GRAN x10 3 0.06 0.00 - 0.06 10*3/uL LYMPH x10 3 1.61 1.09 - 3.23 10*3/uL MONO x10 3 1.40 (*) 0.36 - 1.02 10*3/uL EOS x10 3 0.12 0.06 - 0.53 10*3/uL BASO x10 3 0.07 0.01 - 0.09 10*3/uL COMP. METABOLIC PANEL (09752) - Abnormal NA 138 135 - 145 mmol/L K 3.6 3.5 - 5.0 mmol/L CL 101 98 - 108 mmol/L CO2 TOTAL 26 23 - 31 mmol/L AGAP 11 2 - 16 BUN 7 7 - 23 mg/dL GLUCOSE 98 70 - 110 mg/dL CREATININE 0.84 0.60 - 1.25 mg/dL TOTAL BILI 1.4 (*) 0.1 - 1.1 mg/dL CALCIUM 9.4 8.6 - 10.6 mg/dL T PROTEIN 7.3 6.3 - 8.2 g/dL ALBUMIN 4.6 3.5 - 5.0 g/dL ALK PHOS 109 34 - 122 U/L ALTv 18 5 - 50 U/L AST(SGOT) 23 13 - 40 U/L eGFR 127.2 mL/min/1.73m2 CREATINE KINASE - Abnormal CK 195 (*) 33 - 194 U/L URINALYSIS - Abnormal APPEARANCE Slightly Cloudy (*) Clear COLOR Yellow Yellow PH 5.0 4.8 - 8.0 SP GRAVITY 1.011 1.003 - 1.030 GLU U QUAL Normal Normal BLOOD Negative Negative KETONES Negative Negative PROTEIN Negative Negative UROBILIN Normal Normal BILIRUBIN Negative Negative NITRITE Negative Negative LEUK PIEDAD Negative Negative RBC/HPF 9 (*) 0 - 3 HPF WBC/HPF 4 0 - 5 HPF BACTERIA Negative Negative MUCOUS Slight (*) Negative LPF SQ EPITH 1 HPF HYAL CAST 1 <=2 LPF URINE DRUG (IMMUNOASSAY) - COMPREHENSIVE DRUG SCREEN W/O REFLEX - Abnormal AMPHET Negative Negative RD U Negative Negative BENZO U Presumptive Positive (*) Negative Cocaine Metabolite Presumptive Positive (*) Negative METHADONE Negative Negative OPIATES Negative Negative PCP Negative Negative THC Presumptive Positive (*) Negative MAGNESIUM - Normal MAGNESIUM 1.7 1.7 - 2.4 mg/dL EKG: If EKG completed, see Procedure Note. Orders and Treatments: Orders Placed This Encounter Procedures CBC WITH DIFF COMP. METABOLIC PANEL (71907) Magnesium Creatine Kinase URINALYSIS URINE DRUG (IMMUNOASSAY) - COMPREHENSIVE DRUG SCREEN W/O REFLEX Orders Placed This Encounter Medications NaCl 0.9% (NS) bolus infusion 2,000 mL hydrOXYzine (ATARAX) tablet 25 mg First Provider Eval: ED Events Date/Time Event User Comments 06/06/241945 Medical Screening Begins NATALIE TRINIDAD -- 06/06/241945 First Provider Evaluation NATALIE VARGAS TRINIDAD -- ED COURSE Diagnosis/Impression as of 06/06/242207 Weakness Dehydration Drug abuse Procedures: Procedures MDM: Medical Decision Making The patient presents from home for evaluation for generalized weakness that started today. No nausea, vomiting or diarrhea. No chest pain or pressure. No shortness of breath. No fevers or chills. He has a history of avoidant restrictive food intake disorder and reports to eat very little at baseline. Today he spent most of the day outside and reports he had nothing to eat and maybe a glass of water. He also has a history of bipolar disorder and anxiety. He reports he took a Paxil tablet today for the first time in maybe 6 months. He reports he also uses his mother's Ativan and last for dose 2 or 3 days ago. Vital signs are stable in the ER. He has dry mucous membranes. His abdomen is soft and nontender. His lungs are clear bilaterally. His heart is regular rhythm. Will give the patient IV fluid and check laboratory studies including his electrolytes. Final disposition pending. 2207 -the patient is doing well here in the ER. His laboratory studies unremarkable. His UDS is positive for benzodiazepines, cocaine and marijuana. Spoke to the patient regarding the stoppage of using street drugs or other medications that are not prescribed for him. Also advised patient to contact his psychiatrist tomorrow to make an appointment. He remained stable here in the ER and is okay for discharge home with PCP follow-up. Problems Addressed: Dehydration: acute illness or injury Drug abuse: acute illness or injury Weakness: acute illness or injury Amount and/or Complexity of Data Reviewed Labs: ordered. Decision-making details documented in ED Course. Risk OTC drugs. Prescription drug management. Flowsheet Documentation: Scoring Tools: No data recorded Disposition/Condition: ED Disposition ED Disposition Disch - Home Condition Stable Comment -- Discharge Medications: Patient's Medications START taking these medications No medications on file CONTINUE taking these medications which have NOT CHANGED GABAPENTIN 600 MG TABLET Take 600 mg by mouth in the morning and 600 mg at noon and 600 mg in the evening. LORAZEPAM 1 MG TABLET Take 1 mg by mouth in the morning. OLANZAPINE (ZYPREXA ORAL) Take by mouth 2 (two) times daily. Prescribed by [facility] psychiatrist , [place]/Suzanne Rahman Apr 2019 PAROXETINE 20 MG TABLET Take 20 mg by mouth in the morning. START taking Modified Medications as Prescribed No medications on file STOP taking these medications No medications on file Follow-up: Electronically signed by: Trinidad Estrada DO 06/06/242207 T [facility] 2024-06-02 10:37:28 Harpal Avila is a 23 year old male Chief Complaint Patient presents with Physical Fasting Thumb Pain Patient c/o hurt thumb x week says pain is radiating down to wrist and arm Charlene Sol CMA II T [facility]
--- NOTE | 2024-08-01 20:45 | EDPHYS ---
Physician Documentation [facility] Name: Chan Gale Age: 23 yrs Sex: Male : 2000 Arrival Date: 08/01/2024 Time: 19:37 Bed IW2 Private MD: ED Physician Austin Banks HPI: 08/01 20:14 This 23 yrs old Male presents to ER via Unassigned with complaints of sp4 Decreased Appetite, Medication Refill. 08/02 02:14 Patient presents with report of anxiety and requests prescription for some Valium PO. . sp4 Historical: - Allergies: 08/01 20:35 No Known Allergies; cm10 - PMHx: 20:35 adhd; Anxiety; avoident restrictive food intact disorder; Bipolar disorder; Depression; cm10 drug abuse; - Immunization history:: Adult Immunizations up to date. - Infectious Disease History:: Denies. - Social history:: Smoking status: unknown. - Family history:: not pertinent. ROS: 08/02 02:14 Constitutional: Negative for fever, chills, and weight loss, positive for anxiety sp4 All other systems are negative, Exam: 02:14 Constitutional: This is a well developed, thin appearing patient who is awake, alert, sp4 and in no acute distress. Thin male, several old abrasions to bilateral elbows. Head/Face: Normocephalic, atraumatic. Eyes: Pupils equal round and reactive to light, extra-ocular motions intact. Lids and lashes normal. Conjunctiva and sclera are not injected. Cornea within normal limits. Periorbital areas with no swelling, redness, or edema. ENT: Nares patent. No nasal discharge, no septal abnormalities noted. Tympanic membranes are normal and external auditory canals are clear. Oropharynx with no redness, swelling, or masses, exudates, or evidence of obstruction, uvula midline. Mucous membranes moist. Neck: Trachea midline, no thyromegaly or masses palpated, and no cervical lymphadenopathy. Supple, full range of motion without nuchal rigidity, or vertebral point tenderness. Chest/axilla: Normal chest wall appearance and motion. Nontender with no deformity. No lesions are appreciated. Cardiovascular: Regular rate and rhythm with a normal S1 and S2. No gallops, murmurs, or rubs. Normal PMI, no JVD. No pulse deficits. Respiratory: Lungs have equal breath sounds bilaterally, clear to auscultation and percussion. No rales, rhonchi or wheezes noted. No increased work of breathing, no retractions or nasal flaring. Abdomen/GI: Soft, with normal bowel sounds. No distension or tympany. No guarding or rebound. No evidence of tenderness throughout. Back: No spinal tenderness. No costovertebral tenderness. Skin: Warm, dry with normal turgor. Normal color with no rashes, no lesions, and no evidence of cellulitis. MS/ Extremity: Pulses equal, no cyanosis. Neurovascular intact. Full, normal range of motion. Neuro: Awake and alert, GCS 15, oriented to person, place, time, and situation. Cranial nerves II-XII grossly intact. Motor strength 5/5 in all extremities. Sensory grossly intact. Psych: Awake, alert, with orientation to person, place and time. Behavior, mood, and affect are within normal limits Vital Signs: 08/01 20:33 BP 112 / 69; Pulse 86; Resp 18; Temp 98(O); Pulse Ox 94% on R/A; Weight 51.26 kg (R); cm10 Height 5 ft. 8 in. ; Pain 7/10; 20:33 Body Mass Index 17.18 (51.26 kg, 172.72 cm) cm10 20:33 Pain Scale: Adult cm10 Eleanor Coma Score: 08/02 02:14 Eye Response: spontaneous(4). Motor Response: obeys commands(6). Verbal Response: sp4 oriented(5). Total: 15. MDM: 08/01 20:37 Medical Screening Exam initiated sp4 08/02 02:14 Data reviewed: vital signs, nurses notes, old medical records. ED course: Patient has sp4 requested PO Valium, His request was refused. Patient discharged in stable condition. Administered Medications: No medications were administered Disposition: 02:16 Chart complete. sp4 Disposition Summary: 08/01/24 20:45 Discharge Ordered Notes: Location: Home sp4 Problem: new sp4 Symptoms: are unchanged sp4 Condition: Stable sp4 Diagnosis - Anxiety disorder, unspecified sp4 - Acute Anxiety sp4 Followup: sp4 - With: Private Physician - When: 7 - 10 days - Reason: Recheck today's complaints Discharge Instructions: - Discharge Summary Sheet sp4 - Managing Anxiety, Adult sp4 Forms: - Patient Portal Instructions sp4 Signatures: Austin Banks MD MD sp4 Sangeetha Cordova RN RN cm10
--- NOTE | 2024-08-01 20:45 | ER ---
Nurse's Notes [facility] Name: Chan Gale Age: 23 yrs Sex: Male : 2000 Arrival Date: 08/01/2024 Time: 19:37 Bed IW2 Private MD: Diagnosis: Anxiety disorder, unspecified;Acute Anxiety Presentation: 08/01 20:33 Chief complaint: Patient states: I had to stop taking my lorazepam because it wasn't cm10 helping. Pt states, "I need to change my medication because the Ativan makes me treat people like shit.". Coronavirus screen: Client denies travel out of the [place] in the last 14 days. Ebola Screen: Patient denies travel to an Ebola-affected area in the 21 days before illness onset. No symptoms or risks identified at this time. Initial Sepsis Screen: Does the patient meet any 2 criteria? No. Patient's initial sepsis screen is negative. Does the patient have a suspected source of infection? No. Patient's initial sepsis screen is negative. Risk Assessment: Do you want to hurt yourself or someone else? Patient reports no desire to harm self or others. Onset of symptoms was August 01, 2024. 20:33 Method Of Arrival: Ambulatory cm10 20:33 Acuity: SIRISHA 4 cm10 Triage Assessment: 20:35 General: Appears in no apparent distress. comfortable, Behavior is calm, cooperative, cm10 appropriate for age. Neuro: No deficits noted. Level of Consciousness is awake, alert, obeys commands, Oriented to person, place, time, situation, Appropriate for age. Historical: - Allergies: 20:35 No Known Allergies; cm10 - PMHx: 20:35 adhd; Anxiety; avoident restrictive food intact disorder; Bipolar disorder; Depression; cm10 drug abuse; - Immunization history:: Adult Immunizations up to date. - Infectious Disease History:: Denies. - Social history:: Smoking status: unknown. - Family history:: not pertinent. Screenin:[facility] ED Fall Risk Assessment (Adult) History of falling in the last 3 months, cm10 including since admission No falls in past 3 months (0 pts) Confusion or Disorientation No (0 pts) Intoxicated or Sedated No (0 pts) Impaired Gait No (0 pts) Mobility Assist Device Used No (0 pt) Altered Elimination No (0 pt) Score/Fall Risk Level 0 - 2 = Low Risk Oriented to surroundings, Maintained a safe environment, Hourly rounding (assess needs \\T\\ fall precautionary measures) done. Abuse screen: Denies threats or abuse. Denies injuries from another. Nutritional screening: No deficits noted. Tuberculosis screening: No symptoms or risk factors identified. Vital Signs: 20:33 BP 112 / 69; Pulse 86; Resp 18; Temp 98(O); Pulse Ox 94% on R/A; Weight 51.26 kg (R); cm10 Height 5 ft. 8 in. ; Pain 7/10; 20:33 Body Mass Index 17.18 (51.26 kg, 172.72 cm) cm10 20:33 Pain Scale: Adult cm10 Shabnam Coma Score: 08/02 02:14 Eye Response: spontaneous(4). Motor Response: obeys commands(6). Verbal Response: sp4 oriented(5). Total: 15. ED Course: 08/01 19:39 Patient arrived in ED. mr 20:14 Austin Banks MD is Attending Physician. sp4 20:35 Triage completed. cm10 20:35 Arm band placed on right wrist. Patient placed in waiting room. cm10 20:55 Patient has correct armband on for positive identification. Provided Education on: cm10 Follow-up instructions. 20:55 No provider procedures requiring assistance completed. Patient did not have IV access cm10 during this emergency room visit. Administered Medications: No medications were administered Medication: 20:53 VIS not applicable for this client. cm10 Outcome: 20:45 Discharge ordered by . sp4 20:56 Discharged to home ambulatory, cm10 20:56 Condition: good 20:56 Discharge instructions given to Pt left prior to receiving paperwork. 20:56 Patient left the ED. cm10 Signatures: Charlene Fall, Reg Reg mr Austin Banks MD MD sp4 Sangeetha Cordova, RN RN cm10
[2024-08-01 22:21] VITALS: BP 112/69; TEMP 98; O2SAT 94
== END 2024-08-01 20:56 | disposition home or self-care (01) ==
LOC: ER 19:37
DX: F41.9 Anxiety disorder, unspecified (principal)
CPT/HCPCS: 99282

== ENCOUNTER 2024-08-03 13:16 | Emergency (ER) | payer OTHER ==
--- OUTSIDE RECORDS SUMMARY | 2024-08-03 13:21 | XMS REPORT | Continuity of Care Document ---
Author Name Unknown Address [address] [facility]. [address] [place] [address] [facility] Address [address] [facility] [address] [place] [address] Care Team Providers Care [employer] Consultant Name Role Phone KENYA FUENTES Primary Care Physician Unavailab DONTA Caceres Attending Clinician Unavailable Donta Cope Attending Clinician [phone] VERNON SAMANIEGO Attending Clinician UnavailIHSAN Pineda Attending Clinician UnavailTRINIDAD Tan Attending Clinician Unavailab TRINIDAD Ponce Attending Clinician UnavailTrinidad Sandhu DO Attending Clinician [phone] Attending Clinician Unavailable ALLEN CANNON Attending Clinician Unavailable KENYA FUENTES Attending Clinician Unavailable DONTA HAYNES Attending Clinician UnavailDonta Raphael MD Attending Clinician [phone] CRISTINA AZUL Attending Clinician UnavailKenya Lazcano Attending Clinician [phone] Doctor Unassigned, Institute Attending Clinician U Marilu Bingham LVN Attending Clinician [phone] MICHAEL ASHRAF Attending Clinician Unavailable Campbell Guerrero MD Attending Clinician [phone] Ayaan Yung DO Attending Clinician [phone] Michael Ashraf DO Attending Clinician [phone] Kim Patel PHD Attending Clinician KIM PATEL Attending Clinician JAZMYN Marie M.D. Attending Clinician UnavailCHANCE Lima APRN Attending Clinician Un available DONTA DELUNA Admitting Clinician Unavailable KENYA FUENTES Admitting Clinician Unavailable CAMPBELL GUERRERO Admitting Clinician Unava ilable Eranderek Ayaan VARGAS Admitting Clinician Payers Payer Name Policy Type Policy Number Effective Date Expirati on Date Source HIM [facility] [id number] 2023 00:00:00 [facility] TAMAYO COPAY FOCUS 9 [id number] 2023 00:00:00 [facility] [id number] 2018 00:00:00 Problems Condition Name Condition Details Condition Category Status Onset Date Resolution Date Last Treatment Date Treating Clinician Comments Source Need for hepatitis C screening test Need for hepatitis C screening test Disease Active 10-20 00:00: 00 [facility] Low bone density for age Low bone density for age Disease Active 10-20 00:00: 00 [facility] Encounter to establish care Encounter to establish care Disease Active 2021-09 00:00: 00 [facility] RLS (restless legs syndrome) RLS (restless legs syndrome) Disease Active 2021-09 00:00: 00 [facility] BMI less than 19,adult BMI less than 19,adult Disease Active 2021-09 00:00: 00 [facility] Encounter to establish care Encounter to establish care Disease Active 2021-09 00:00: 00 [facility] Drug overdose of undetermin ed intent, initial encounter Drug overdose of undetermin ed intent, initial encounter Disease Active 2021-09 00:00: 00 [facility] Bipolar 1 disorder, mixed anxiety-de pression, moderate Bipolar 1 disorder, mixed anxiety-de pression, moderate Disease Recurre nce 02-23 00:00: 00 [facility] Anxiety Anxiety Disease Active 02-23 00:00: 00 [facility] Underweigh t in childhood with BMI < 5th percentile Underweigh t in childhood with BMI < 5th percentile Disease Active 2017-09 00:00: 00 [facility] 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 Disease Active 04-19 00:00: 00 [facility] 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 Disease Active 04-19 00:00: 00 [facility] Nicotine abuse Nicotine abuse Disease Active 01-10 00:00: 00 [facility] Marijuana abuse, continuous Marijuana abuse, continuous Disease Active 01-10 00:00: 00 [facility] Attention deficit hyperactiv ity disorder (ADHD) Attention deficit hyperactiv ity disorder (ADHD) Disease Recurre nce 2006-09 00:00: 00 [facility] Major depressive disorder with current active [...] 2017-09 00:00: 00 2019-08-18 00:00:00 2019-08-18 10:02:15 [facility] Bipolar 2 disorder, major depressive episode Bipolar 2 disorder, major depressive episode Disease Resolve d 2018-1 1-16 00:00: 00 2019-02-23 00:00:00 2019-02-23 15:24:57 [facility] Episode of recurrent major depressive disorder Episode of recurrent major depressive disorder Disease Resolve d 04-19 00:00: 00 2019-02-23 00:00:00 2019-02-23 15:25:05 [facility] Esophageal reflux Esophageal reflux Disease Resolve d 2008-09 00:00: 00 2016-06-15 00:00:00 2016-06-15 20:21:02 [facility] SENSORY DISORDER SENSORY DISORDER Disease Resolve d 2006-09 00:00: 00 2016-06-15 00:00:00 2016-06-15 20:21:09 [facility] Bipolar disorder Bipolar disorder Disease Resolve d 2006-09 00:00: 00 2009-06-29 00:00:00 2022-04-13 00:12:08 [facility] Nonorganic enuresis Nonorganic enuresis Disease Resolve d 2006-09 00:00: 00 2009-05-18 00:00:00 2009-05-18 17:51:16 [facility] ASPERGER - continue to evaluate for ASPERGER - continue to evaluate for Disease Resolve d 2006-09 00:00: 00 2007-10-20 00:00:00 2007-10-20 16:52:33 [facility] Allergies, Adverse Reactions, Alerts Allergy Name Allergy Type Status Severity Reaction(s) Onset Date Inactive Date Treating Clinician Comments Source NO KNOWN ALLERGIE S Drug Class Active [facility] Social History Social Habit Start Date Stop Date Quantity Comments [facility]coholic beverage intake 2024-07-29 00:00:00 2024-07-29 00:00:00 Current non-drinker of alcohol (finding) [facility] Exposure to SARS-CoV-2 (event) 2022-11-18 00:00:00 2022-11-28 11:48:00 Not sure [facility] Alcohol intake 2022-10-20 00:00:00 2022-10-20 00:00:00 Current non-drinker of alcohol (finding) [facility] Tobacco Comment 2022-09-05 00:00:00 2022-09-05 00:00:00 Vapes [facility] Tobacco use and exposure 2022-09-05 00:00:00 2022-09-05 00:00:00 Smokeless tobacco non-user [facility] Cigarettes smoked current (pack per day) - Reported 2022-09-05 00:00:00 2022-09-05 00:00:00 [facility] History of Social function 2019-04-07 00:00:00 2019-04-07 00:00:00 [facility] History of tobacco use 2018-07-08 00:00:00 Cigarette Smoker [facility] Sex assigned at 2002 00:00:00 2000 00:00:00 Whitney sylvia - External Smoking Status Start Date Stop Date Source Never smoked tobacco (finding) [facility] Tobacco smoking consumption unknown Whitney Gomes - External Smokes tobacco daily 2022-09-05 00:00:00 [facility] Ex-smoker 2022-09-01 00:00:00 2022-09-01 00:00:00 [facility] Medications Ordered Medication Name Filled Medication Name Start Date Stop Date Current Medication? Ordering Clinician Indication Dosage Frequency Signature (SIG) Comments Components Source ketorolac (TORADOL) injection 60 mg 2023-09 17:30: 00 07-29 17:31 :00 No 60mg 60 mg, Intramuscu lar, ONCE, 1 dose, On Thu07/29/24 at 1230, Routine [facility] gabapentin 100 mg capsule 2023-09 00:00: 00 08-04 05:59 :00 Yes [id number] 100mg Take 1 capsule by mouth in the morning and 1 capsule at noon and 1 capsule in the evening. Do all this for 5 days. [facility] NaCl 0.9% (NS) bolus infusion 2,000 mL 06-07 02:00: 00 06-07 03:10 :00 No 2000mL at 999 mL/hr, 2,000 mL, IV Infusion, ONCE, 1 dose, On Thu06/06/24 at 2100, MARIBEL [facility] hydrOXYzine (ATARAX) tablet 25 mg 06-07 01:45: 00 06-07 02:06 :00 No 25mg 25 mg, Oral, ONCE, 1 dose, On Thu06/06/24 at 2045, MARIBEL [facility] ondansetron (ZOFRAN) 4 mg tablet 12-02 00:00: 00 12-13 04:59 :00 No [id number] 4mg Take 1 tablet by mouth every 8 (eight) hours as needed for Nausea and Vomiting (N/V) for up to 10 days. [facility] OXcarbazepi ne 600 mg tablet 2021-09 14:31: 18 09-05 00:00 :00 No 600mg Take 600 mg by mouth 2 (two) times daily. [facility] LORazepam 1 mg Cp24 2021-09 14:27: 07 09-05 00:00 :00 No 1mg Take 1 mg by mouth 2 (two) times daily. [facility] olanzapine (ZYPREXA ORAL) 2021-09 14:26: 27 Yes Take by mouth 2 (two) times daily. [facility] gabapentin 600 mg tablet 2021-09 14:26: 27 Yes 600mg Take 600 mg by mouth in the morning and 600 mg at noon and 600 mg in the evening. [facility] SERTraline 100 mg tablet 2021-09 14:19: 22 09-05 00:00 :00 No 100mg Take 100 mg by mouth daily. [facility] nicotine (NICODERM) 21 mg/24 hr patch 1 Patch 2021-09 19:45: 00 Yes 1{patch } 1 Patch, Topical, Administer over 24 Hours, Q24H, First dose on Thu09/02/22 at 1345, Until Discontinu ed, Routine [facility] hydrOXYzine (ATARAX) tablet 10 mg 2021-09 19:30: 00 09-02 18:49 :00 No 10mg 10 mg, Oral, ONCE, 1 dose, On Thu09/02/22 at 1330, Routine [facility] gabapentin 600 mg tablet 2021-09 17:34: 50 Yes 600mg Take 600 mg by mouth in the morning and 600 mg at noon and 600 mg in the evening. [facility] OXcarbazepi ne 600 mg tablet 2021-09 15:34: 48 Yes 600mg Take 600 mg by mouth 2 (two) times daily. [facility] SERTraline 100 mg tablet 2021-09 15:34: 48 Yes 100mg Take 100 mg by mouth daily. Prescribed by [facility] - Apr 2019 [facility] olanzapine (ZYPREXA ORAL) 2021-09 15:34: 48 Yes Take by mouth 2 (two) times daily. Prescribed by [facility] - Apr 2019 [facility] LORazepam 1 mg Cp24 2021-09 15:34: 48 Yes 1mg Take 1 mg by mouth 2 (two) times daily. [facility] gabapentin 600 mg tablet 2021-09 15:34: 48 Yes 600mg Take 600 mg by mouth in the morning and 600 mg at noon and 600 mg in the evening. [facility] LORazepam (ATIVAN) tablet 1 mg 2021-09 15:00: 00 Yes 1mg 1 mg, Oral, QAM, First dose on Thu09/02/22 at 0900, Until Discontinu ed, Routine [facility] OLANZapine (ZyPREXA) tablet 15 mg 2021-09 03:00: 00 Yes 15mg 15 mg, Oral, QHS, First dose on Thu09/01/22 at 2100, Until Discontinu ed, [facility] ([facility]XIL[facility] 20 mg 2021-09 03:00: 00 Yes 20mg 20 mg, Oral, QHS, First dose on Thu09/01/22 at 2100, Until Discontinu ed, Routine [facility] gabapentin (NEURONTIN) tablet 600 mg 2021-09 02:00: 00 Yes 600mg 600 mg, Oral, TID, First dose on Thu09/01/22 at 2000, Until Discontinu ed, Routine [facility] acetaminoph en (TYLENOL) tablet 325 mg 2021-09 23:49: 00 09-02 00:20 :00 No 325mg 325 mg, Oral, ONCE, 1 dose, On Thu09/01/22 at 1800, [facility] clonazePAM (KLONOPIN) tablet 1 mg 2021-09 16:15: 00 Yes 1mg 1 mg, Oral, Q8H, First dose (after last modificati on) on Thu09/01/22 at 1015, Until Discontinu ed, Routine [facility] ketamine (KETALAR) injection 50 mg 2021-09 23:30: 00 08-31 07:04 :00 No 50mg 50 mg, Slow IV Push, ONCE, 1 dose, On Thu08/31/22 at 1730, [facility] clonazePAM 0.1 mg/mL oral suspension 1 mg 2021-09 20:00: 00 09-01 14:29 :11 No 1mg 1 mg, Oral, TID, First dose on Thu08/31/22 at 1400, Until Discontinu ed, Routine [facility] midazolam (VERSED) STD 50mg in NaCl 0.9% [...] at maximum allowed dose, contact prescriber .
[facility] enoxaparin (LOVENOX) injection 40 mg 2021-09 15:00: 00 Yes 40mg 40 mg, Subcutaneo us, DAILY, First dose on Thu08/31/22 at 0900, Until Discontinu ed, Routine [facility] dexMEDEtomi dine 200 mcg in 0.9 % NaCl 50 mL (PRECEDEX) RTU IV infusion 2021-09 14:33: 19 09-02 00:39 :35 No .2ug/kg /h 0.2-1.5 mcg/kg/hr ?61 kg (3.05-22.8 75 mL/hr, rounded to 3.05-22.88 mL/hr), IV Infusion, TITRATE, Sedation-R ASS score (0 to -1), Starting on [place] 08/31/22 at 0833
In itiate infusion at 0.2 mcg/kg/hr and titrate by 0.1 mcg/kg/hr every 30 minutes to goal sedation score. Maximum dose = 1.5 mcg/kg/hr. If goal not maintained at maximum allowed dose, contact prescriber .
[facility] fentaNYL PF (SUBLIMAZE) STD 2,500 mcg in NaCl 0.9% (NS) 250 mL infusion RTU 2021-09 08:03: 47 09-01 11:18 :51 No 25ug/h 25-200 mcg/hr (2.5-20 mL/hr), IV Infusion, TITRATE, CPOT/Pain Scale Goals Determined by Provider, Starting on [place] 08/31/22 at 0203
In itiate infusion at 25 mcg/hr. Titrate by 25 mcg/hr every 1 minute to 15 minutes to identified goal pain and/or sedation scores. Maximum dose = 200 mcg/hr. If goal not maintained at maximum allowed dose, contact prescriber .
[facility] FENTanyl PF (SUBLIMAZE (PF)) injection 50 mcg 2021-09 08:00: 00 08-31 07:14 :00 No 50ug 50 mcg, Slow IV Push, ONCE, 1 dose, On [place] 08/31/22 at 0200, Routine [facility] propofoL IV infusion 2021-09 07:24: 17 08-31 07:09 :53 No 5ug/kg/ min 5-50 mcg/kg/min ?61 kg (1.83-18.3 mL/hr), IV Infusion, TITRATE, Sedation-R ASS score (0 to -1), Starting on [place] 08/31/22 at 0124
In itiate infusion at 5 mcg/kg/min and titrate by 5 mcg/kg/min every 30 seconds to 10 minutes to goal sedation score. Maximum dose = 50 mcg/kg/min . If goal not maintained at maximum allowed dose, contact prescriber . &nbs p;Tubing and unused portions of vials should be discarded after 12 hours.
[facility] lactated ringers IV infusion 1,000 mL 2021-09 07:15: 00 08-31 07:00 :00 No 1000mL at 999 mL/hr, 1,000 mL, Intravenou s, ONCE, 1 dose, On [place] 08/31/22 at 0115, Routine [facility] midazolam (VERSED) STD 50mg in NaCl [...] at maximum allowed dose, contact prescriber .
[facility] gabapentin 300 mg/6 mL (6 mL) solution 2021-09 23:09: 11 08-30 00:00 :00 No Take by mouth 2 (two) times daily. prescribed at [facility] no summer 2018 [facility] PARoxetine 20 mg tablet 2021-09 00:00: 00 Yes 20mg Take 20 mg by mouth in the morning. [facility] LORazepam 1 mg tablet 2021-09 00:00: 00 Yes 1mg Take 1 mg by mouth in the morning. [facility] SERTraline 100 mg tablet 10-22 18:52: 12 Yes 100mg Take 100 mg by mouth daily. Prescribed by [facility] - Apr 2019 [facility] olanzapine (ZYPREXA ORAL) 10-22 18:52: 09 Yes Take by mouth 2 (two) times daily. Prescribed by [facility] - Apr 2019 [facility] gabapentin 300 mg/6 mL (6 mL) solution 10-22 18:52: 07 Yes Take by mouth 2 (two) times daily. prescribed at [facility] no summer 2018 [facility] OXcarbazepi ne (TRILEPTAL) 600 mg tablet 10-22 18:52: 06 Yes 600mg Take 600 mg by mouth 2 (two) times daily. [facility] Sertraline HCl - 50 MG Oral [...] (1) TABLET(S) BY MOUTH TWICE A DAY. [facility] ans busPIRone 15 mg tablet 03-03 00:00: 00 Yes [id number] 15mg Take 1 tablet by mouth 2 (two) times daily. [facility] DULoxetine 60 mg capsule 03-01 00:00: 00 Yes [id number] 60mg Take 1 capsule by mouth daily. [facility] DULoxetine 30 mg capsule 03-01 00:00: 00 Yes [id number] 30mg Take 1 capsule by mouth daily. [facility] OXcarbazepi ne (TRILEPTAL) 600 mg tablet 02-23 19:48: 44 Yes 600mg Take 600 mg by mouth 2 (two) times daily. [facility] traZODONE 50 mg tablet 02-23 00:00: 00 Yes [id number] 25mg Take 0.5 tablets by mouth 2 (two) times daily. [facility] Multi-Vitam in TABS Multi-Vitam in TABS Yes M.A. [facility] ans Immunizations Ordered Immunization Name Filled Immunization Name Date Status Comments Source Gardasil 9 Intramuscular Suspension 2018-05-25 00:00:00 Completed [facility] Meningococcal, MCV4, unspecified conjugate formulation(groups A, C, Y and W-135) 2018-05-25 00:00:00 Completed [facility] Boostrix 5-2.5-18.5 Intramuscular Suspension 2018-05-21 00:00:00 Completed [facility] influenza virus vaccine, unspecified formulation 2017-09-03 00:00:00 Completed [facility] influenza virus vaccine, unspecified formulation 2016-07-01 00:00:00 Completed [facility] FluMist Quadrivalent Nasal Suspension 2015-08-06 00:00:00 Completed [facility] Boostrix 5-2.5-18.5 Intramuscular Suspension 2014-12-28 00:00:00 Completed [facility] Meningococcal, MCV4, unspecified conjugate formulation(groups A, C, Y and W-135) 2014-12-28 00:00:00 Completed [facility] influenza virus vaccine, unspecified formulation 2014-06-23 00:00:00 Completed [facility] Gardasil Intramuscular Suspension 2014-05-25 00:00:00 Completed [facility] Boostrix 5-2.5-18.5 Intramuscular Suspension 2014-05-25 00:00:00 Completed [facility] Meningococcal, MCV4, unspecified conjugate formulation(groups A, C, Y and W-135) 2014-05-25 00:00:00 Completed [facility] TDAP 2014-05-25 00:00:00 Completed [facility] Meningococcal Polysaccharide (groups A, C, Y and W-135) conjugate vaccine (MCV4P) 2014-05-25 00:00:00 Completed [facility] HPV 2014-05-25 00:00:00 Completed [facility] TDAP 2014-05-25 00:00:00 Completed [facility] Meningococcal Polysaccharide (groups A, C, Y and W-135) conjugate vaccine (MCV4P) 2014-05-25 00:00:00 Completed [facility] HPV 2014-05-25 00:00:00 Completed [facility] TDAP 2014-05-25 00:00:00 Completed [facility] Meningococcal Polysaccharide (groups A, C, Y and W-135) conjugate vaccine (MCV4P) 2014-05-25 00:00:00 Completed [facility] HPV 2014-05-25 00:00:00 Completed [facility] TDAP 2014-05-25 00:00:00 Completed [facility] Meningococcal Polysaccharide (groups A, C, Y and W-135) conjugate vaccine (MCV4P) 2014-05-25 00:00:00 Completed [facility] HPV 2014-05-25 00:00:00 Completed [facility] TDAP 2014-05-25 00:00:00 Completed [facility] Meningococcal Polysaccharide (groups A, C, Y and W-135) conjugate vaccine (MCV4P) 2014-05-25 00:00:00 Completed [facility] Tdap 2014-05-25 00:00:00 Completed [facility] HPV 2014-05-25 00:00:00 Completed [facility] Meningococcal Polysaccharide (groups A, C, Y and W-135) conjugate vaccine (MCV4P) 2014-05-25 00:00:00 Completed [facility] HPV 2014-05-25 00:00:00 Completed [facility] TDAP 2014-05-25 00:00:00 Completed [facility] Meningococcal Polysaccharide (groups A, C, Y and W-135) conjugate vaccine (MCV4P) 2014-05-25 00:00:00 Completed [facility] HPV 2014-05-25 00:00:00 Completed [facility] TDAP 2014-05-25 00:00:00 Completed [facility] Meningococcal Polysaccharide (groups A, C, Y and W-135) conjugate vaccine (MCV4P) 2014-05-25 00:00:00 Completed [facility] HPV 2014-05-25 00:00:00 Completed [facility] TDAP 2014-05-25 00:00:00 Completed [facility] Meningococcal Polysaccharide (groups A, C, Y and W-135) conjugate vaccine (MCV4P) 2014-05-25 00:00:00 Completed [facility] HPV 2014-05-25 00:00:00 Completed [facility] TDAP 2014-05-25 00:00:00 Completed [facility] Meningococcal Polysaccharide (groups A, C, Y and W-135) conjugate vaccine (MCV4P) 2014-05-25 00:00:00 Completed [facility] HPV 2014-05-25 00:00:00 Completed [facility] TDAP 2014-05-25 00:00:00 Completed [facility] Meningococcal Polysaccharide (groups A, C, Y and W-135) conjugate vaccine (MCV4P) 2014-05-25 00:00:00 Completed [facility] HPV 2014-05-25 00:00:00 Completed [facility] Tdap 2014-05-25 00:00:00 Completed [facility] TDAP 2014-05-25 00:00:00 Completed [facility] Meningococcal Polysaccharide (groups A, C, Y and W-135) conjugate vaccine (MCV4P) 2014-05-25 00:00:00 Completed [facility] HPV 2014-05-25 00:00:00 Completed [facility] Meningococcal Polysaccharide (groups A, C, Y and W-135) conjugate vaccine (MCV4P) 2014-05-25 00:00:00 Completed [facility] HPV 2014-05-25 00:00:00 Completed [facility] TDAP 2014-05-25 00:00:00 Completed [facility] Meningococcal Polysaccharide (groups A, C, Y and W-135) conjugate vaccine (MCV4P) 2014-05-25 00:00:00 Completed [facility] HPV 2014-05-25 00:00:00 Completed [facility] TDAP 2014-05-25 00:00:00 Completed [facility] Meningococcal Polysaccharide (groups A, C, Y and W-135) conjugate vaccine (MCV4P) 2014-05-25 00:00:00 Completed [facility] HPV 2014-05-25 00:00:00 Completed [facility] TDAP 2014-05-25 00:00:00 Completed [facility] Meningococcal Polysaccharide (groups A, C, Y and W-135) conjugate vaccine (MCV4P) 2014-05-25 00:00:00 Completed [facility] HPV 2014-05-25 00:00:00 Completed [facility] TDAP 2014-05-25 00:00:00 Completed [facility] Meningococcal Polysaccharide (groups A, C, Y and W-135) conjugate vaccine (MCV4P) 2014-05-25 00:00:00 Completed HPV 2014-05-25 00:00:00 Completed TDAP 2014-05-25 00:00:00 Completed [facility] Meningococcal Polysaccharide (groups A, C, Y and W-135) conjugate vaccine (MCV4P) 2014-05-25 00:00:00 Completed [facility] HPV 2014-05-25 00:00:00 Completed [facility] influenza virus vaccine, unspecified formulation 2009-08-09 00:00:00 Completed [facility] H1n1 Vaccine 2009-08-09 00:00:00 Completed [facility] Influenza Virus Vaccine 2009-08-09 00:00:00 Completed [facility] H1n1 Vaccine 2009-08-09 00:00:00 Completed [facility] Influenza Virus Vaccine 2009-08-09 00:00:00 Completed [facility] H1n1 Vaccine 2009-08-09 00:00:00 Completed [facility] Influenza Virus Vaccine 2009-08-09 00:00:00 Completed [facility] H1n1 Vaccine 2009-08-09 00:00:00 Completed [facility] Influenza Virus Vaccine 2009-08-09 00:00:00 Completed [facility] H1n1 Vaccine 2009-08-09 00:00:00 Completed [facility] Influenza Virus Vaccine 2009-08-09 00:00:00 Completed [facility] H1n1 Vaccine 2009-08-09 00:00:00 Completed [facility] Influenza Virus Vaccine 2009-08-09 00:00:00 Completed [facility] H1n1 Vaccine 2009-08-09 00:00:00 Completed [facility] Influenza Virus Vaccine 2009-08-09 00:00:00 Completed [facility] H1n1 Vaccine 2009-08-09 00:00:00 Completed [facility] Influenza Virus Vaccine 2009-08-09 00:00:00 Completed [facility] H1n1 Vaccine 2009-08-09 00:00:00 Completed [facility] Influenza Virus Vaccine 2009-08-09 00:00:00 Completed [facility] H1n1 Vaccine 2009-08-09 00:00:00 Completed [facility] Influenza Virus Vaccine 2009-08-09 00:00:00 Completed [facility] H1n1 Vaccine 2009-08-09 00:00:00 Completed [facility] Influenza Virus Vaccine 2009-08-09 00:00:00 Completed [facility] H1n1 Vaccine 2009-08-09 00:00:00 Completed [facility] Influenza Virus Vaccine 2009-08-09 00:00:00 Completed [facility] H1n1 Vaccine 2009-08-09 00:00:00 Completed [facility] Influenza Virus Vaccine 2009-08-09 00:00:00 Completed [facility] H1n1 Vaccine 2009-08-09 00:00:00 Completed [facility] Influenza Virus Vaccine 2009-08-09 00:00:00 Completed [facility] H1n1 Vaccine 2009-08-09 00:00:00 Completed [facility] Influenza Virus Vaccine 2009-08-09 00:00:00 Completed [facility] H1n1 Vaccine 2009-08-09 00:00:00 Completed [facility] Influenza Virus Vaccine 2009-08-09 00:00:00 Completed [facility] H1n1 Vaccine 2009-08-09 00:00:00 Completed Influenza Virus Vaccine 2009-08-09 00:00:00 Completed H1n1 Vaccine 2009-08-09 00:00:00 Completed [facility] Influenza Virus Vaccine 2009-08-09 00:00:00 Completed [facility] influenza virus vaccine, unspecified formulation 2009-07-04 00:00:00 Completed [facility] Influenza Virus Vaccine 2009-07-04 00:00:00 Completed [facility] Influenza Virus Vaccine 2009-07-04 00:00:00 Completed [facility] Influenza Virus Vaccine 2009-07-04 00:00:00 Completed [facility] Influenza Virus Vaccine 2009-07-04 00:00:00 Completed [facility] Influenza Virus Vaccine 2009-07-04 00:00:00 Completed [facility] Influenza Virus Vaccine 2009-07-04 00:00:00 Completed [facility] Influenza Virus Vaccine 2009-07-04 00:00:00 Completed [facility] Influenza Virus Vaccine 2009-07-04 00:00:00 Completed [facility] Influenza Virus Vaccine 2009-07-04 00:00:00 Completed [facility] Influenza Virus Vaccine 2009-07-04 00:00:00 Completed [facility] Influenza Virus Vaccine 2009-07-04 00:00:00 Completed [facility] Influenza Virus Vaccine 2009-07-04 00:00:00 Completed [facility] Influenza Virus Vaccine 2009-07-04 00:00:00 Completed [facility] Influenza Virus Vaccine 2009-07-04 00:00:00 Completed [facility] Influenza Virus Vaccine 2009-07-04 00:00:00 Completed [facility] Influenza Virus Vaccine 2009-07-04 00:00:00 Completed [facility] Influenza Virus Vaccine 2009-07-04 00:00:00 Completed [facility] Influenza Virus Vaccine 2009-07-04 00:00:00 Completed [facility] hepatitis A vaccine, pediatric/adolescent dosage, 2 dose [...] [facility] Influenza Virus Vaccine Unknown Completed [facility] H1n1 Vaccine Unknown Completed [facility] TDAP Unknown Completed [facility] Meningococcal Polysaccharide (groups A, C, Y and W-135) conjugate vaccine (MCV4P) Unknown Completed [facility] HPV Unknown Completed [facility] Vital Signs Vital Name Observation Time Observation Value Comments S ource Systolic blood pressure 2024-07-29 19:40:00 116 mm[Hg] [facility] Diastolic blood pressure 2024-07-29 19:40:00 78 mm[Hg] [facility] Heart rate 2024-07-29 19:40:00 93 /min [facility] Respiratory rate 2024-07-29 19:40:00 16 /min [facility] Oxygen saturation in Arterial blood by Pulse oximetry 2024-07-29 19:40:00 98 /min [facility] Body temperature 2024-07-29 16:40:00 36.39 Jeana [facility] Body height 2024-07-29 16:40:00 172.7 cm [facility] Body weight 2024-07-29 16:40:00 49.896 kg [facility] BMI 2024-07-29 16:40:00 16.73 kg/m2 [facility] Systolic blood pressure 2024-06-07 03:00:00 73 mm[Hg] [facility] Diastolic blood pressure 2024-06-07 03:00:00 64 mm[Hg] [facility] Body temperature 2024-06-07 03:00:00 36.61 Jeana [facility] Respiratory rate 2024-06-07 03:00:00 25 /min [facility] Oxygen saturation in Arterial blood by Pulse oximetry 2024-06-07 03:00:00 98 /min [facility] Heart rate 2024-06-07 00:52:00 67 /min [facility] Body height 2024-06-07 00:52:00 172.7 cm [facility] Body weight 2024-06-07 00:52:00 51.256 kg [facility] BMI 2024-06-07 00:52:00 17.18 kg/m2 [facility] Systolic blood pressure 2024-06-02 15:36:00 116 mm[Hg] [facility] - [facility] Diastolic blood pressure 2024-06-02 15:36:00 68 mm[Hg] [facility] Seybold - External Heart rate 2024-06-02 15:36:00 88 /min [facility] Body temperature 2024-06-02 15:36:00 36.67 Jaena [facility] Respiratory rate 2024-06-02 15:36:00 16 /min [facility] - [facility] Body height 2024-06-02 15:36:00 172.7 cm [facility] - External Body weight 2024-06-02 15:36:00 51.619 kg [facility] BMI 2024-06-02 15:36:00 17.30 kg/m2 [facility] Systolic blood pressure 2022-11-28 17:50:00 104 mm[Hg] [facility] Diastolic blood pressure 2022-11-28 17:50:00 52 mm[Hg] [facility] Heart rate 2022-11-28 17:50:00 106 /min [facility] Body height 2022-11-28 17:50:00 172.7 cm [facility] Body weight 2022-11-28 17:50:00 62.551 kg [facility] BMI 2022-11-28 17:50:00 20.97 kg/m2 [facility] Oxygen saturation in Arterial blood by Pulse oximetry 2022-11-28 17:50:00 93 /min [facility] Systolic blood pressure 2022-10-20 14:09:00 108 mm[Hg] [facility] Diastolic blood pressure 2022-10-20 14:09:00 65 mm[Hg] [facility] Heart rate 2022-10-20 14:09:00 95 /min [facility] Body temperature 2022-10-20 14:09:00 37.06 Jeana [facility] Body height 2022-10-20 14:09:00 172.7 cm [facility] Body weight 2022-10-20 14:09:00 58.968 kg [facility] BMI 2022-10-20 14:09:00 19.77 kg/m2 [facility] Oxygen saturation in Arterial blood by Pulse oximetry 2022-10-20 14:09:00 98 /min [facility] Systolic blood pressure 2022-09-05 20:22:00 101 mm[Hg] [facility] Diastolic blood pressure 2022-09-05 20:22:00 64 mm[Hg] [facility] Heart rate 2022-09-05 20:22:00 62 /min [facility] Body temperature 2022-09-05 20:22:00 36.33 Jeana [facility] Body height 2022-09-05 20:22:00 172.7 cm [facility] Body weight 2022-09-05 20:22:00 56.337 kg [facility] BMI 2022-09-05 20:22:00 18.88 kg/m2 [facility] Oxygen saturation in Arterial blood by Pulse oximetry 2022-09-05 20:22:00 97 /min [facility] Systolic blood pressure 2022-09-03 05:40:00 110 mm[Hg] [facility] Diastolic blood pressure 2022-09-03 05:40:00 81 mm[Hg] [facility] Heart rate 2022-09-03 05:40:00 64 /min [facility] Body temperature 2022-09-03 05:40:00 37.22 Jeana [facility] Respiratory rate 2022-09-03 05:40:00 18 /min [facility] Body height 2022-09-03 05:40:00 172.7 cm [facility] Body weight 2022-09-03 05:40:00 57.153 kg [facility] BMI 2022-09-03 05:40:00 19.16 kg/m2 [facility] Oxygen saturation in Arterial blood by Pulse oximetry 2022-09-03 05:40:00 100 /min [facility] Systolic blood pressure 2022-09-02 17:17:00 114 mm[Hg] [facility] Diastolic blood pressure 2022-09-02 17:17:00 75 mm[Hg] [facility] Heart rate 2022-09-02 17:17:00 81 /min [facility] Body temperature 2022-09-02 17:17:00 36.61 Jeana [facility] Respiratory rate 2022-09-02 17:17:00 18 /min [facility] Oxygen saturation in Arterial blood by Pulse oximetry 2022-09-02 17:17:00 99 /min [facility] Body weight 2022-09-01 19:40:00 61 kg [facility] BMI 2022-09-01 19:40:00 20.45 kg/m2 [facility] Body height 2022-09-01 19:36:00 172.7 cm [facility] BP Systolic 2019-10-20 12:54:00 118 mm[Hg] Location: [...] BP Systolic 2019-02-24 10:04:00 100 mm[Hg] Location: AUGUSTE; Position: Sitting [facility] BP Diastolic 2019-02-24 10:04:00 61 mm[Hg] Location: LUE; Position: Sitting [facility] Height 2019-02-24 10:04:00 167.5 cm [facility] Weight 2019-02-24 10:04:00 101 [lb_av] [facility] Body Mass Index Calculated 2019-02-24 10:04:00 16.33 kg/m2 [facility] Temperature 2019-02-24 10:04:00 98.4 [degF] Method: Tympanic [facility] Heart Rate 2019-02-24 10:04:00 62 /min Quality: Normal [facility] Respiration Rate 2019-02-24 10:04:00 18 /min Quality: Normal [facility] O2 SAT 2019-02-24 10:04:00 100 % [...] 2+ VW LEFT 2024-07-29 17:33:31 Donta Deluna [facility] CREATINE KINASE 2024-06-07 01:23:00 Trinidad Estrada [facility] MAGNESIUM 2024-06-07 01:23:00 Trinidad Estrada [facility] COMP. METABOLIC PANEL ([id number]) 2024-06-07 01:23:00 Trinidad Estrada [facility] CBC WITH DIFF 2024-06-07 01:23:00 [facility] 2024-06-07 01:23:00 Trinidad Estrada [facility] URINE DRUG (IMMUNOASSAY) - COMPREHENSIVE DRUG SCREEN W/O REFLEX 2024-06-07 01:23:00 Trinidad Estrada [facility] PATIENT FINANCIAL POLICY 2022-11-28 17:49:34 Doctor Unassigned, Institute [facility] EXTERNAL PROVIDER RECORDS 2022-11-19 06:01:00 Doctor Unassigned, Institute [facility] DEXA AXIAL (HIP AND SPINE) 2022-09-17 19:58:00 Kenya Fuentes [facility] EXTERNAL PROVIDER RECORDS 2022-09-16 06:01:00 Doctor Unassigned, Institute [facility] ASSIGNMENT OF BENEFITS 2022-09-05 19:47:49 Docto r Unassigned, Institute [facility] COMP. METABOLIC PANEL ([id number]) 2022-09-01 10:44:00 Marilyn Mitchell [facility] CBC WITH DIFF 2022-09-01 10:44:[address] [facility] XR CHEST 1 VW 2022-09-01 10:15:00 [facility] 2022-08-31 09:35:00 Dolly Beasley [facility] MAGNESIUM 2022-08-31 09:35:00 Jael Coppola [facility] TROPONIN I 2022-08-31 09:35:00 Jael Coppola [facility] COMP. METABOLIC PANEL ([id number]) 2022-08-31 09:35:00 Jael Coppola [facility] SALICYLATE 2022-08-31 09:35:00 Jael Coppola [facility] ETHANOL 2022-08-31 09:35:00 Jael Coppola [facility] CBC WITH DIFF 2022-08-31 09:35:00 Jael Coppola [facility] URINE DRUG (IMMUNOASSAY) - COMPREHENSIVE DRUG SCREEN 2022-08-31 09:07:00 Jael Coppola [facility] URINE DRUG (LCMSMS) - COMPREHENSIVE DRUG PANEL 2022-08-31 09:07:00 Jael Coppola [facility] AC PANEL 20 + LACTIC ACID 2022-08-31 09:01:00 Jael Coppola [facility] XR CHEST 1 VW 2022-08-31 05:44:00 Jael Coppola [facility] XR KUB 2022-08-31 05:44:00 Jael Coppola [facility] AUTHORIZATION FOR RELEASE OF PHI 2020-08-21 06:01:00 Doctor Unassigned, Institute [facility] [[facility]] CBC (INCLUDES DIFF/PLT) 2019-10-20 00:00:00 [facility] [[facility]] CMP W/EGFR 2019-10-20 00:00:00 [facility]] LIPID PANEL 2019-10-20 00:00:00 [facility] [[facility]] TSH, 3RD GENERATION 2019-10-20 00:00:00 [facility] [Q] DRUG SCREEN,COMPREHENSIVE (URINE) 2019-07-20 00:00:00 [facility] [Q] DRUG SCREEN,COMPREHENSIVE (URINE) 2019-02-24 00:00:00 [facility] Encounters Start Date/Time End Date/Time Encounter Type Admission Type Attending Clinicians [facility] Care Department Encounter ID Source 2024-07-29 11:41:00 2024-07-29 15:18:00 Emergency X DONTA DELUNA [facility] ERT [id number] [facility] 2024-07-29 11:41:00 2024-07-29 15:18:00 Emergency Donta Deluna [facility] 1..840.114 350.1.13.10 4.2.7.2.686 [id number] [facility] 2024-06-09 09:30:00 2024-06-09 09:30:00 Outpatient VERNON SAMANIEGO [id number] [facility] 2024-06-08 00:00:00 2024-06-08 00:00:00 Outpatient VERNON SAMANIEGO [id number] [facility] 2024-06-07 00:00:00 2024-06-07 00:00:00 Outpatient IHSAN CHEN [id number] [facility] 2024-06-06 20:03:00 2024-06-06 22:17:00 Emergency X TRINIDAD ESTRADA SANDRA [facility] ERT [id number] [facility] 2024-06-06 20:03:00 2024-06-06 22:17:00 Emergency Trinidad Estrada [facility] ..840.114 350.1.13.10 4.2.7.2.686 [id number] [facility] 2024-06-02 11:20:00 2024-06-02 11:20:00 Outpatient ILEANA LAIRD WHITNEY [id number] [facility] 2024-06-02 10:30:00 2024-06-02 10:30:00 Outpatient IHSAN CHEN WHITNEY [id number] Whitney [facility] 2024-05-18 15:15:00 2024-05-18 15:15:00 Outpatient ALLEN CANNON WHITNEY LAIRD [id number] Whitney [facility] 2024-05-18 15:15:00 2024-05-18 15:15:00 Outpatient FANINixonALLEN WHITNEY LAIRD [id number] Whitney [facility] 2023-04-24 11:00:00 2023-04-24 11:00:00 Outpatient DONTA CUEVAS [facility] [id number] [facility] 2022-12-30 00:00:00 2022-12-30 00:00:[address] [facility] 1.2.840.114 350.1.13.10 4.2.7.2.686 [id number] [facility] 2022-12-03 14:00:00 2022-12-03 14:00:00 Outpatient KENYA CHOUDHARY [facility] [id number] [facility] 2022-12-02 00:00:00 2022-12-02 00:00:00 Telephone Kenya Fuentes [facility] 1.2.840.114 350.1.13.10 4.2.7.2.686 [id number] [facility] 2022-11-28 12:00:00 2022-11-28 13:03:08 Outpatient DONTA CUEVAS [facility] [id number] [facility] 2022-11-28 12:00:00 2022-11-28 13:03:08 Office Visit Donta Haynes [facility] 1.2.840.114 350.1.13.10 4.2.7.2.686 [id number] [facility] 2022-11-28 00:00:00 2022-11-28 00:00:00 Orders Only Doctor Unassigned, Institute [facility] 1.2840.114 350.1.13.10 4.2.7.2.686 [id number] [facility] 2022-11-19 00:00:00 2022-11-19 00:00:00 Orders Only Doctor Unassigned, Institute [facility] 1.2840.114 350.1.13.10 4.2.7.2.686 [id number] [facility] 2022-10-20 08:00:00 2022-10-20 08:45:36 Outpatient R KENYA FUENTES [facility] [id number] [facility] 2022-10-20 08:00:00 2022-10-20 08:45:36 Office [facility] 1.2.840.114 350.1.13.10 4.2.7.2.686 [id number] [facility] 2022-09-23 00:00:00 2022-09-23 00:00:00 Telephone Alfredo Kenya [facility] 1.2.840.114 350.1.13.10 4.2.7.2.686 [id number] [facility] 2022-09-17 13:39:39 2022-09-17 23:59:00 Outpatient R KENYA FUENTES [facility] [id number] [facility] 2022-09-17 13:39:39 2022-09-17 23:59:00 Hospital Encounter Kenya Fuentes [facility] 1.2.840.114 350.1.13.10 4.2.7.2.686 [id number] [facility] 2022-09-16 00:00:00 2022-09-16 00:00:00 Orders Only Doctor Unassigned, Institute [facility] 1.2840.114 350.1.13.10 4.2.7.2.686 [id number] [facility] 2022-09-05 14:00:00 2022-09-05 14:51:04 Outpatient R KENYA FUENTES [facility] [id number] [facility] 2022-09-05 14:00:00 2022-09-05 14:51:04 Office Visit Kenya Fuentes [facility] 1.114 350.1.13.10 4.2.7.2.686 [id number] [facility] 2022-09-05 00:00:00 2022-09-05 00:00:00 Orders Only Doctor Unassigned, Institute [facility] 1.20.114 350.1.13.10 4.2.7.2.686 [id number] [facility] 2022-09-03 00:00:00 2022-09-03 00:00:00 Transition of Care Marilu Steiner 1.20.114 350.1.13.10 4.2.7.2.686 [id number] [facility] 2022-09-02 23:43:00 2022-09-02 23:56:00 Emergency X TRINIDAD ESTRADA [facility] ERT [id number] [facility] 2022-09-02 23:43:00 2022-09-02 23:56:00 Emergency Trinidad Estrada [facility] 1.0.114 350.1.13.10 4.2.7.2.686 [id number] [facility] 2022-08-30 22:42:00 2022-09-02 15:34:00 Inpatient X MICHAEL ASHRAF [facility] [id number] [facility] 2022-08-30 22:42:00 2022-09-02 15:34:00 Hospital Encounter Campbell Guerrero, Ayaan Andriy Michael TERRI [facility] 1.2.840.114 350.1.13.10 4.2.7.2.686 [id number] [facility] 2020-08-21 00:00:00 2020-08-21 00:00:00 Orders Only Doctor Unassigned, Institute [facility] 1.2.840.114 350.1.13.10 4.2.7.2.686 [id number] [facility] 2020-08-21 00:00:00 2020-08-21 00:00:00 Orders Only Doctor Unassigned, Institute [facility] 1.2.840.114 350.1.13.10 4.2.7.2.686 [id number] 2019-12-08 13:05:19 2019-12-08 14:05:19 Office Visit Kim Patel [facility] [place] 1.2.840.114 350.1.13.10 4.2.7.2.686 [id number] [facility] 2019-12-08 13:05:19 2019-12-08 14:05:19 Office Visit Kim Patel [facility] 1.2.840.114 350.1.13.10 4.2.7.2.686 [id number] 2019-12-08 13:15:00 2019-12-08 13:15:00 Outpatient R KIM PATEL [facility] [id number] [facility] 2019-10-20 13:00:00 2019-10-20 13:00:00 Appointmen t; JAZMYN ESPINAL M.D. MEMON, SABA, M.D. [facility] [id number] [place] [facility] 2019-07-20 13:00:00 2019-07-20 13:00:00 Appointmen t; JAZMYN ESPINAL M.D. MEMON, SABA, M.D. [facility] [id number] [facility] 2019-06-08 00:00:00 2019-06-08 00:00:00 Telephone Kim Patel [facility] [place] 1.2.840.114 350.1.13.10 4.2.7.2.686 [id number] [facility] 2019-02-24 10:00:00 2019-02-24 10:00:00 Appointmen t; JAZMYN ESPINAL M.D. MEMON, SABA, M.D. [facility] [id number] [facility] 2019-02-07 10:20:00 2019-02-07 10:20:00 Appointmen t; CHANCE VAZQUEZ APRN WILLIAMSON, TIFFINY, APRN [facility] [id number] [facility] Results Test Description Test Time Test Comments Results Resul t Comments Source XR SHOULDER 2+ VW LEFT 2024-07-29 18:46:43 ORDERING PHYSICIAN: DONTA DELUNA HISTORY: ?pain TECHNIQUE:Three views of the left shoulder . Technical quality: Diagnostic. COMPARISON: None FINDINGS: There is no fracture or dislocation. ? ?Soft tissues are unremarkable. [facility] [place] ([id number])2024-06-07 01:51:42* Test Item Value Reference Range Interpretation Comme nts NA (test code = 8333645611) 138 mmol/L 135-145 K (test code = 9390586633) 3.6 mmol/L 3.5-5.0 CL (test code = 4149462011) 101 mmol/L 98-108 CO2 TOTAL (test code = 5847861527) 26 mmol/L 23-31 AGAP (test code = 4424774522) 11 2-16 BUN (test code = 2459487759) 7 mg/dL 7-23 GLUCOSE (test code = 2707721832) 98 mg/dL 70-110 CREATININE (test code = 2160-0) 0.84 mg/dL 0.60-1.25 TOTAL BILI (test code = 4816857758) 1.4 mg/dL 0.1-1.1 H CALCIUM (test code = 5398732045) 9.4 mg/dL 8.6-10.6 T PROTEIN (test code = 7108579224) 7.3 g/dL 6.3-8.2 ALBUMIN (test code = 6110404871) 4.6 g/dL 3.5-5.0 ALK PHOS (test code = 8260699647) 109 U/L 34-122 ALTv (test code = 1742-6) 18 U/L 5-50 AST(SGOT) (test code = 5553340684) 23 U/L 13-40 eGFR (test code = 52201-7) 127.2 mL/min/1.73m2 CKD-EPI eGFR (2020). Assuming creatinine has been stable day-to-day for at least three months, the eGFR indicates Category G1 (>= 90 mL/min/1.73 m2) Lab Interpretation (test code = 02398-5) [id number] 01:51:22* Test Item Value Reference Range Interpretation Comme nts CK (test code = 8303758133) 195 U/L 33-194 H Lab Interpretation (test cod e = 43091-6) [facility] [id number] 01:40:20* Test Item Value Reference Range Interpretation [...] 33.7 g/dL 31.2-35.0 RDW-SD (test code = 36377-6) 44.1 fL 38.5-51.6 RDW-CV (test code = 788-0) 13.2 % 12.1-15.4 PLT (test code = 777-3) 266 150-328 MPV (test code = 69196-2) 10.2 fL 9.8-13.0 NRBC/100 WBC (test code = 4221331838) 0.0 0.0-10.0 NRBC x10^3 (test code = 3557271068) See_Comment [Automated message] The system which generated this result transmitted reference range: 10*3/?L. The reference range was not used to interpret this result as normal/abnormal. GRAN MAT (NEUT) % (test code = 770-8) 75.6 % IMM GRAN % (test code = 1171581727) 0.40 % LYMPH % (test code = 736-9) 12.1 % MONO % (test code = 5905-5) 10.5 % EOS % (test code = 713-8) 0.9 % BASO % (test code = 706-2) 0.5 % GRAN MAT x10^3(ANC) (test code = 1270023822) 10.09 10*3/uL 1.99-6.95 H IMM GRAN x10^3 (test code = 4439042748) 0.06 10*3/uL 0.00-0.06 LYMPH x10^3 (test code = 731-0) 1.61 10*3/uL 1.09-3.23 MONO x10^3 (test code = 742-7) 1.40 10*3/uL 0.36-1.02 H EOS x10^3 (test code = 711-2) 0.12 10*3/uL 0.06-0.53 BASO x10^3 (test code = 704-7) 0.07 10*3/uL 0.01-0.09 Lab Interpretation (test code = 71015-8) [id number][facility]-01 11:26:16* Test Item Value Reference Range Interpretation Comme nts NA (test code = 6456968958) 138 mmol/L 135-145 K (test code = 8400444683) 3.5 mmol/L 3.5-5.0 Slight hemolysis CL (test code = 4183197378) 110 mmol/L 98-108 H CO2 TOTAL (test code = 7068722760) 26 mmol/L 23-31 AGAP (test code = 4881435097) 2-16 BUN (test code = 3272762757) 9 mg/dL 7-23 Slight hemolysis GLUCOSE (test code = 2358531602) 99 mg/dL 70-110 CREATININE (test code = 7098647363) 0.73 mg/dL 0.60-1.25 TOTAL BILI (test code = 1003198544) 0.9 mg/dL 0.1-1.1 CALCIUM (test code = 4886936349) 8.2 mg/dL 8.6-10.6 L T PROTEIN (test code = 2766746695) 5.5 g/dL 6.3-8.2 L ALBUMIN (test code = 6351778137) 3.3 g/dL 3.5-5.0 L ALK PHOS (test code = 1397805716) 75 U/L 34-122 Slight hemolysis ALTv (test code = 1742-6) 16 U/L 5-50 AST(SGOT) (test code = 1812408024) 30 U/L 13-40 Slight hemolysis eGFR (test code = 7174002909) mL/min/1.73m2 KACI (test code = KACI) Association [...] imaging tests). Lab Interpretation (test code = 08530-9) Abnormal Community [facility] WITH [id number] 11:03:17* Test Item Value Reference Range Interpretation Comme nts WBC (test code = 6690-2) See_Comment [[employer]] The system which generated this result transmitted reference range: 4.20 - 10.70 10*3/?L. The reference range was not used to interpret this result as normal/abnormal. RBC (test code = 789-8) See_Comment L [[employer]] The system which generated this result transmitted [...] g/dL 31.2-35.0 H RDW-SD (test code = 54369-0) 41.7 fL 38.5-51.6 RDW-CV (test code = 788-0) 13.2 % 12.1-15.4 PLT (test code = 777-3) See_Comment [[employer]] The system which generated this result transmitted reference range: 150 - 328 10*3/?L. The reference range was not used to interpret this result as normal/abnormal. MPV (test code = 24865-5) 11.9 fL 9.8-13.0 NRBC/100 WBC (test code = 0515486669) See_Comment [[employer]] The system which generated this result transmitted reference range: 0.0 - 10.0 /100 WBCs. The reference range was not used to interpret this result as normal/abnormal. NRBC x10^3 (test code = 2546284101) See_Comment [Automated messa ge] The system which generated this result transmitted reference range: 10*3/?L. The reference range was not used to interpret this result as normal/abnormal. GRAN MAT (NEUT) % (test code = 770-8) 62.3 % IMM GRAN % (test code = 1283259720) 0.20 % LYMPH % (test code = 736-9) 25.7 % MONO % (test code = 5905-5) 8.0 % EOS % (test code = 713-8) 3.4 % BASO % (test code = 706-2) 0.4 % GRAN MAT x10^3(ANC) (test code = 7335865221) 5.01 10*3/uL 1.99-6.95 IMM GRAN x10^3 (test code = 3707966529) 0.00-0.06 LYMPH x10^3 (test code = 731-0) 2.07 10*3/uL 1.09-3.23 MONO x10^3 (test code = 742-7) 0.64 10*3/uL 0.36-1.02 EOS x10^3 (test code = 711-2) 0.27 10*3/uL 0.06-0.53 BASO x10^3 (test code = 704-7) 0.03 10*3/uL 0.01-0.09 Lab Interpretation (test code = 47616-7) [facility]normal [facility]CREAT[facility] [id number] 17:58:42* Test Item Value Reference Range Interpretation Comme nts CK (test code = 8251549755) 180 U/L 33-194 Lab Interpretation (test cod e = 99223-5) Normal [facility]TR[facility] [id number] 11:09:00* Test Item Value Reference Range Interpretation Comments TROPONIN I (test code = 0046246609) 0.001 ng/mL See_Comment [Automated message] The system [...] of biotin. Lab Interpretation (test code = 02112-5) Normal [facility] CenterSALICYLATE2022-12-04 10:59:14 SALICYLATE<10mg/L111/01/2021 4:59 AM CSTUT LABORATORY SERVICESTherapeutic Range: ? Analgesic and Antipyretic Use ? 20-100 mg/L ? ? Anti- Inflammatory Use ? 100-250 mg/LToxic Range: ? Greater than 300 mg/LUnMemorial Hermann [facility]y HospitalETHANOL2022-12-04 10:59:14ALCOHOL<10mg/dL08/31/2022 4:59 AM CSTUTMB LABORATORY SERVICESToxic Greater than or equal to 80 mg/dL. NOTE: Whole blood values are approximately 10% to 15% lower than serum and plasma.[facility] [id number] 10:59:09* Test Item Value Reference Range Interpretation Comme nts ACETAMINOP (test code = 9892667030) 10.0-30.0 L KACI (test code = KACI) Toxic: Greater mamie n 200 ug/mL @ 4 hour post ingestion or greater than 50 ug/mL @ 12 hour post ingestion Lab Interpretation (test code = 17545-8) Abnormal [facility] CenterMAGNESIUM2022-12-04 10:58:19* Test Item Value Reference Range Interpretation Comme nts MAGNESIUM (test code = 6669194343) 1.8 mg/dL 1.7-2.4 Lab Interpretation (test cod e = 68858-2) Normal [facility] CenterCOMP. METABOLIC PANEL (59064)2022-08-31 10:58:18* Test Item Value Reference Range Interpretation Comme nts NA (test code = 1521602774) 141 mmol/L 135-145 K (test code = 6639853660) 4.0 mmol/L 3.5-5.0 CL (test code = 1417209732) 110 mmol/L 98-108 H CO2 TOTAL (test code = 0397085690) 25 mmol/L 23-31 AGAP (test code = 4617943730) 2-16 BUN (test code = 4116699409) 5 mg/dL 7-23 L GLUCOSE (test code = 3297952587) 80 mg/dL 70-110 CREATININE (test code = 7243212122) 0.71 mg/dL 0.60-1.25 TOTAL BILI (test code = 3323932326) 0.5 mg/dL 0.1-1.1 CALCIUM (test code = 4386013896) 7.7 mg/dL 8.6-10.6 L T PROTEIN (test code = 8524727738) 5.2 g/dL 6.3-8.2 L ALBUMIN (test code = 2548532093) 3.3 g/dL 3.5-5.0 L ALK PHOS (test code = 8272698240) 71 U/L 34-122 ALTv (test code = 1742-6) 16 U/L 5-50 AST(SGOT) (test code = 2207342658) 23 U/L 13-40 eGFR (test code = 5943236469) mL/min/1.73m2 KACI (test code = KACI) Association [...] imaging tests). Lab Interpretation (test code = 34358-0) Abnormal [facility] WITH [id number] 09:52:32* Test Item Value Reference Range Interpretation [...] 33.8 g/dL 31.2-35.0 RDW-SD (test code = 52005-3) 41.1 fL 38.5-51.6 RDW-CV (test code = 788-0) 12.9 % 12.1-15.4 PLT (test code = 777-3) See_Comment [Automated message] The system which generated this result transmitted reference range: 150 - 328 10*3/?L. The reference range was not used to interpret this result as normal/abnormal. MPV (test code = 76951-9) 11.1 fL 9.8-13.0 NRBC/100 WBC (test code = 0599311620) See_Comment [Automated message] The system which generated this result transmitted reference range: 0.0 - 10.0 /100 WBCs. The reference range was not used to interpret this result as normal/abnormal. NRBC x10^3 (test code = 5936529308) See_Comment [Automated message] The system which generated this result transmitted reference range: 10*3/?L. The reference range was not used to interpret this result as normal/abnormal. GRAN MAT (NEUT) % (test code = 770-8) 90.1 % IMM GRAN % (test code = 8818690144) 0.40 % LYMPH % (test code = 736-9) 5.4 % MONO % (test code = 5905-5) 3.8 % EOS % (test code = 713-8) 0.1 % BASO % (test code = 706-2) 0.2 % GRAN MAT x10^3(ANC) (test code = 9013875342) 14.75 10*3/uL 1.99-6.95 H IMM GRAN x10^3 (test code = 5583468288) 0.06 10*3/uL 0.00-0.06 LYMPH x10^3 (test code = 731-0) 0.88 10*3/uL 1.09-3.23 L MONO x10^3 (test code = 742-7) 0.62 10*3/uL 0.36-1.02 EOS x10^3 (test code = 711-2) 0.06-0.53 L BASO x10^3 (test code = 704-7) 0.03 10*3/uL 0.01-0.09 Lab Interpretation (test code = 93002-4) Abnormal [facility] CenterAC Panel 20 + Lactic [id number] 09:16:12* Test Item Value Reference Range Interpretation Comme nts PH (test code = 2) 7.35-7.45 PCO2 (test code = 4385610659) See_Comment [Automated messa ge] The system which generated this result transmitted reference range: 35 - 45 mmHg. The reference range was not used to interpret this result as normal/abnormal. PO2 (test code = 3754413584) See_Comment H [Automated messa ge] The system which generated this result transmitted reference range: 80 - 100 mmHg. The reference range was not used to interpret this result as normal/abnormal. HCO3 (test code = 8614341844) See_Comment L [Automated messa ge] The system which generated this result transmitted reference range: 22 - 26 mEq/L. The reference range was not used to interpret this result as normal/abnormal. BE (test code = 6002662942) See_Comment L [Automated messa ge] The system which generated this result transmitted reference range: -3.0 - 3.0 mEq/L. The reference range was not used to interpret this result as normal/abnormal. THB (test code = 1481398457) 13.2 g/dL 13.5-18.0 L %O2HB (test code = 2596041724) 98.8 % 94.0-99.0 %COHB ART (test code = 5843117258) 0.3 % 0.0-1.5 %METHB ART (test code = 8436608422) 0.2 % 0.4-1.5 L VOL%O2 ART (test code = 8919468557) 18.8 % 15.0-23.0 NA (test code = 4025835575) 139 mmol/L 135-145 K+ (test code = 9668512691) 3.9 mmol/L 3.5-5.0 AC CA IONZ (test code = 3191273490) 4.60 mg/dL 4.50-5.30 GLUCOSE (test code = 7208956050) 88 mg/dL 70-110 LACTIC ACID (test code = 2826603610) 1.04 mmol/L 0.50-2.20 Lab Interpretation (test code = 46074-3) Abnormal [facility][H] Drug Screen Urine (9 Drugs)2019-07-20 15:46:01* Test [...] Negative Urine Propoxyphene Screen (test code = 50495-7) Negative Negative Urine Drug Screen Note (test [...] 50 ng/mLMethadone 300 ng/mLUrine alcohol 20 mg/dL [facility][H] Drug Screen Urine (9 Drugs)2019-02-24 13:44:01* [...] Negative Urine Propoxyphene Screen (test code = 91806-7) Negative Negative Urine Drug Screen Note (test [...] 50 ng/mLMethadone 300 ng/mLUrine alcohol 20 mg/dL [facility] Notes Date/Time Note Provider Source 2024-07-29 [...] with steady gait, in no apparent distress. T [facility] 2024-07-29 11:36:32 Pt arrived ambulatory with complaints of L shoulder pain x1 days after wrestling with friends. Pt has slowed speech, denies drug use. Mildred Valverde RN [facility] 2024-06-06 22:16:43 Pt given printed and verbal [...] in no apparent distress, Chance Lynn RN [facility] 2024-06-06 19:49:40 Pt arrives in wheelchair with [...] and be checked out. Mayra Estrada RN [facility] 2024-06-06 19:40:00 [facility] Emergency Department Note Patient Name: Harpal Avila Date of : 2000 23 year old male Treatment Room: NE7/NE7 Primary Care Physician: Alfredo Foster Patient Escorted by: Family [5] Mode of Arrival: Personal means [1] EMS Treatment Prior to ED Arrival: PUBLIC SPACE ATTENDANT treatment: None Travel and Exposure Screening: Symptoms [...] 0.01 - 0.09 10*3/uL COMP. METABOLIC PANEL (74471) - Abnormal NA 138 135 - 145 [...] Procedures CBC WITH DIFF COMP. METABOLIC PANEL (30518) Magnesium Creatine Kinase URINALYSIS URINE DRUG (IMMUNOASSAY) - COMPREHENSIVE DRUG SCREEN W/O REFLEX Orders Placed This Encounter Medications NaCl 0.9% (NS) bolus infusion 2,000 mL hydrOXYzine (ATARAX) tablet 25 mg First Provider Eval: ED Events Date/Time Event User Comments 06/06/241945 Medical Screening Begins NATALIE TRINIDAD -- 06/06/241945 First Provider Evaluation NATALIE TRINIDAD -- ED COURSE Diagnosis/Impression as of [...] 2 (two) times daily. Prescribed by [facility] psychiatrist , Aldair/Suzanne - Apr 2019 PAROXETINE 20 MG TABLET Take 20 mg by mouth in the morning. START taking Modified Medications as Prescribed No medications on file STOP taking these medications No medications on file Follow-up: Electronically signed by: Trinidad Estrada DO 06/06/242207 T [facility] 2024-06-02 10:37:28 Harpal Avila is a 23 year old male Chief Complaint Patient presents with Physical Fasting Thumb Pain Patient c/o hurt thumb x week says pain is radiating down to wrist and arm Charlene Sol CMA II T [facility]
[2024-08-03] MEDS ORDERED: IBUPROFEN 400 MG TAB ONE (13:50)
[2024-08-03] MEDS ORDERED: GUAIFENESIN/DM 5 ML UCUP ONE (13:51)
[2024-08-03] MEDS ORDERED: hydrOXYzine HCL 25 MG TAB ONE (14:47)
--- NOTE | 2024-08-03 15:15 | RAD REPORT ---
EXAMINATION: XR LEFT HUMERUS HISTORY: PAIN TECHNIQUE: Multiple views of the left humerus were obtained. COMPARISON: None FINDINGS: No bone or joint abnormality detected. No suspicious focal osseous lesion. Alignment is brooklynn ntained. Surrounding soft tissues are unremarkable.
--- NOTE | 2024-08-03 15:15 | RAD REPORT ---
EXAMINATION: ONE VIEW CHEST XR CLINICAL INDICATION: Male, 23 years old.,CHEST PAIN TECHNIQUE: Frontal chest projection is submitted. Examination is limited by patient positioning and t echnique. COMPARISON: 06/25/2023 FINDINGS: The lungs are well inflated and clear. No pneumothorax or sizable effusion. The heart is normal in s ize. Mediastinal contours are unremarkable. IMPRESSION: No acute intrathoracic abnormalities.
--- NOTE | 2024-08-03 15:18 | ER ---
Nurse's Notes [facility] Name: Chan Gale Age: 23 yrs Sex: Male : 2000 Arrival Date: 08/03/2024 Time: 13:16 Bed 12 Private MD: Diagnosis: Radiculopathy, cervical region Presentation: 08/03 13:19 Chief complaint: Patient states: L arm pain started today. No trauma or falls. ll1 Coronavirus screen: Client denies travel out of the [place] in the last 14 days. At this time, the client does not indicate any symptoms associated with coronavirus-19. Ebola Screen: Patient denies travel to an Ebola-affected area in the 21 days before illness onset. Initial Sepsis Screen: Does the patient meet any 2 criteria? No. Patient's initial sepsis screen is negative. Does the patient have a suspected source of infection? No. Patient's initial sepsis screen is negative. Risk Assessment: Do you want to hurt yourself or someone else? Patient reports no desire to harm self or others. Onset of symptoms was August 03, 2024. 13:19 Method Of Arrival: EMS: [facility] ll1 13:19 Acuity: SIRISHA 4 ll1 Triage Assessment: 13:26 General: Appears uncomfortable, Behavior is cooperative, appropriate for age, anxious. ll1 Pain: Complains of pain in left arm Quality of pain is described as aching. Musculoskeletal: Reports pain in left arm. Historical: - Allergies: 13:19 No Known Allergies; ll1 - PMHx: 13:19 adhd; Anxiety; avoident restrictive food intact disorder; Bipolar disorder; Depression; ll1 drug abuse; - Immunization history:: Adult Immunizations up to date. - Infectious Disease History:: Denies. - Social history:: Smoking status: Patient reports the use of cigarette tobacco products, denies chronic smoking, but will smoke occasionally. Screenin:38 [facility] ED Fall Risk Assessment (Adult) History of falling in the last 3 months, ll1 including since admission No falls in past 3 months (0 pts) Confusion or Disorientation No (0 pts) Intoxicated or Sedated No (0 pts) Impaired Gait No (0 pts) Mobility Assist Device Used No (0 pt) Altered Elimination No (0 pt) Score/Fall Risk Level 0 - 2 = Low Risk Maintained a safe environment, Hourly rounding (assess needs \T\ fall precautionary measures) done. Abuse screen: Denies threats or abuse. Nutritional screening: No deficits noted. Tuberculosis screening: No symptoms or risk factors identified. Assessment: 13:38 Reassessment: No changes from previously documented assessment. Patient and/or family ll1 updated on plan of care and expected duration. Pain level reassessed. Patient is alert, oriented x 3, equal unlabored respirations, skin warm/dry/pink. 13:56 Reassessment: No changes from previously documented assessment. Patient and/or family ll1 updated on plan of care and expected duration. Pain level reassessed. Patient is alert, oriented x 3, equal unlabored respirations, skin warm/dry/pink. 14:59 General: Appears in no apparent distress. comfortable, Behavior is calm, cooperative. rs5 Pain: Denies pain. Neuro: Level of Consciousness is awake, alert, obeys commands, Oriented to person, place, time, situation. Cardiovascular: Patient's skin is warm and dry. Respiratory: Airway is patent Respiratory effort is even, unlabored, Respiratory pattern is regular, symmetrical. GI: Abdomen is round non-distended, Abd is soft and non tender X 4 quads. : No signs and/or symptoms were reported regarding the genitourinary system. EENT: No signs and/or symptoms were reported regarding the EENT system. Derm: Skin is intact, Skin is pink, warm \T\ dry. Musculoskeletal: Range of motion: intact in all extremities. 15:25 Reassessment: Patient and/or family updated on plan of care and expected duration. Pain rs5 level reassessed. Patient is alert, oriented x 3, equal unlabored respirations, skin warm/dry/pink. Vital Signs: 13:26 BP 125 / 78; Pulse 77; Resp 17; Temp 97.1; Pulse Ox 98% on R/A; Weight 54.43 kg; Height ll1 5 ft. 9 in. ; Pain 10/10; 15:00 BP 121 / 81; Pulse 74; Resp 17; Pulse Ox 99% on R/A; rs5 15:25 BP 125 / 84; Pulse 70; Resp 17; Pulse Ox 98% on R/A; rs5 13:26 Body Mass Index 17.72 (54.43 kg, 175.26 cm) ll1 13:26 Pain Scale: Adult ll1 ED Course: 13:18 Patient arrived in ED. ll1 13:18 Arm band placed on Patient placed in an exam room, on a stretcher. ll1 13:19 Ashley Mistry MD is Attending Physician. gb1 13:20 Triage completed. ll1 13:24 Marcy Woodard FNP-C is [facility]. kb 13:39 Patient has correct armband on for positive identification. Bed in low position. ll1 Provided Education on: ER procedures and process. Cardiac monitoring not applicable on this patient. 13:50 Chest Single View XRAY In Process Unspecified. EDMS 13:50 Humerus Left XRAY In Process Unspecified. EDMS 13:56 Sarah Lopez RN is Primary Nurse. ll1 14:24 PO fluids given. crackers. ll1 15:00 No provider procedures requiring assistance completed. Patient did not have IV access rs5 during this emergency room visit. Administered Medications: 13:56 Drug: guaiFENesin PO Liquid 5 ml PO once Route: PO; ll1 15:01 Follow up: Response: No adverse reaction rs5 13:56 Drug: Ibuprofen PO 400 mg PO once Route: PO; ll1 15:01 Follow up: Response: No adverse reaction rs5 14:56 Drug: hydrOXYzine PO 25 mg PO once Route: PO; rs5 15:01 Follow up: Response: No adverse reaction rs5 Medication: 13:38 VIS not applicable for this client. ll1 Outcome: 15:17 Discharge ordered by . kb 15:25 Discharged to Law Enforcement rs5 15:25 Condition: stable 15:25 Instructed on discharge instructions, follow up and referral plans. Demonstrated understanding of instructions, 15:26 Patient left the ED. rs5 Signatures: Dispatcher [employer] EDMS Marcy Woodard FNP-C FNP-Ckb Lewis, Lynsay, RN RN ll1 Freddie Ramirez RN RN rs5 Ashley Mistry MD MD gb1
--- NOTE | 2024-08-03 15:18 | EDPHYS ---
Physician Documentation [facility] Name: Chan Gale Age: 23 yrs Sex: Male : 2000 Arrival Date: 08/03/2024 Time: 13:16 Bed 12 Private MD: ED Physician Ashley Mistry HPI: 08/03 13:28 This 23 yrs old Male presents to ER via EMS with complaints of Arm Pain. kb 13:28 Pt is a 23 year old male who presents for left arm pain that starts at his neck and kb radiates down to wrist. States he is concerned that it is his heart because heart problems run in his family. Also reports cough for one month that is painful. Pt does not want any blood work done. States "I can't take a needle because of a bad experience in the past. I will flail my arms around." . Historical: - Allergies: 13:19 No Known Allergies; ll1 - PMHx: 13:19 adhd; Anxiety; avoident restrictive food intact disorder; Bipolar disorder; Depression; ll1 drug abuse; - Immunization history:: Adult Immunizations up to date. - Infectious Disease History:: Denies. - Social history:: Smoking status: Patient reports the use of cigarette tobacco products, denies chronic smoking, but will smoke occasionally. ROS: 13:27 Constitutional: As per HPI kb Exam: 13:27 Constitutional: This is a well developed, well nourished patient who is awake, alert, kb and in no acute distress. Head/Face: Normocephalic, atraumatic. ENT: Moist Mucous membranes Cardiovascular: Regular rate Respiratory: Respirations even and unlabored. No increased work of breathing. Talking in full sentences Skin: Warm, dry with normal turgor. Normal color. Neuro: Awake and alert, GCS 15, oriented to person, place, time, and situation. 13:27 Neck: External neck: tenderness, that is moderate, of the left posterior aspect of neck, 13:27 Musculoskeletal/extremity: Extremities: grossly normal except: noted in the left arm: pain, ROM: intact in all extremities, Circulation is intact in all extremities. Sensation intact. 13:43 ECG was reviewed by the Attending Physician. kb Vital Signs: 13:26 BP 125 / 78; Pulse 77; Resp 17; Temp 97.1; Pulse Ox 98% on R/A; Weight 54.43 kg; Height ll1 5 ft. 9 in. ; Pain 10/10; 15:00 BP 121 / 81; Pulse 74; Resp 17; Pulse Ox 99% on R/A; rs5 15:25 BP 125 / 84; Pulse 70; Resp 17; Pulse Ox 98% on R/A; rs5 13:26 Body Mass Index 17.72 (54.43 kg, 175.26 cm) ll1 13:26 Pain Scale: Adult ll1 MDM: 13:19 Medical Screening Exam initiated gb1 15:16 Differential diagnosis: contusion, fracture, strain, radiculopathy. Data reviewed: kb vital signs, nurses notes. Test considered but Not performed: Labs: cbc, cmp and troponin considered but pt does not want any needle sticks including bloodwork. Historians other than the Patient: EMS: [facility]. Counseling: I had a detailed discussion with the patient and/or guardian regarding the historical points, exam findings, and any diagnostic results supporting the discharge/admit diagnosis, radiology results, the need for outpatient follow up, a family practitioner, to return to the emergency department if symptoms worsen or persist or if there are any questions or concerns that arise at home. 08/03 13:26 Order name: Chest Single View XRAY; Complete Time: 15:15 kb 08/03 13:26 Order name: Humerus Left XRAY; Complete Time: 15:15 kb 08/03 13:26 Order name: EKG - Nurse/Tech; Complete Time: 13:38 kb EC:43 Rate is 75 beats/min. Rhythm is regular. QRS Curtis is Normal. SD interval is normal at kb 140 msec. QRS interval is normal at 102 msec. QT interval is normal at 419 msec. Administered Medications: 13:56 Drug: guaiFENesin PO Liquid 5 ml PO once Route: PO; ll1 15:01 Follow up: Response: No adverse reaction rs5 13:56 Drug: Ibuprofen PO 400 mg PO once Route: PO; ll1 15:01 Follow up: Response: No adverse reaction rs5 14:56 Drug: hydrOXYzine PO 25 mg PO once Route: PO; rs5 15:01 Follow up: Response: No adverse reaction rs5 Disposition Summary: 08/03/24 15:17 Discharge Ordered Notes: Condition: Stable kb Location: Law Enforcement(08/03/24 15:17) kb Diagnosis - Radiculopathy, cervical region kb Followup: kb - With: Emergency Department - When: As needed - Reason: Worsening of condition Followup: kb - With: Private Physician - When: 2 - 3 days - Reason: Recheck today's complaints, Continuance of care, Re-evaluation by your physician Discharge Instructions: - Discharge Summary Sheet kb - Cervical Radiculopathy, [id number]-[id number] kb Forms: - Medication Reconciliation Form kb - Antibiotic Education kb - Prescription Opioid Use kb - Patient Portal Instructions kb - Leadership Thank You Letter kb Signatures: Dispatcher [employer] EDKY Marcy Woodard, RELIGIOUS ACTIVITIES DIRECTOR-C [place]-Sarah Garcia RN RN ll1 Freddie Ramirez RN RN rs5 Ashley Mistry MD MD gb1 Corrections: (The following items were deleted from the chart) 13:27 13:27 Humerus Left+RAD.RAD.BRZ ordered. EDKY EDKY 15:17 15:17 Home kb kb
[2024-08-03 15:30] VITALS: TEMP 97.1
[2024-08-03 15:32] VITALS: BP 125/84; O2SAT 98
== END 2024-08-03 15:26 ==
LOC: ER 13:16
DX: M54.12 Radiculopathy, cervical region (principal); F31.9 Bipolar disorder, unspecified; F17.210 Nicotine dependence, cigarettes, uncomplicated
CPT/HCPCS: 71045

== ENCOUNTER 2024-08-03 19:34 | Emergency (ER) | payer OTHER ==
--- OUTSIDE RECORDS SUMMARY | 2024-08-03 19:37 | XMS REPORT | Continuity of Care Document ---
Author Name Unknown Address [address] [facility] [place] [address] [facility] thconnect Address [address] [facility] [address] [place] [address] Care Team Providers Care Ramp Manager Name Role Phone KENYA FUENTES Primary Care Physician Unavailab DONTA Caceres Attending Clinician Unavailable Donta Coep Attending Clinician [phone] VERNON SAMANIEGO Attending Clinician UnavailIHSAN Pineda Attending Clinician UnavailTRINIDAD Tan Attending Clinician Unavailab TRINIDAD Ponce Attending Clinician UnavailTrinidad Sandhu DO Attending Clinician [phone] Attending Clinician Unavailable ALLEN CANNON Attending Clinician Unavailable KENYA FUENTES Attending Clinician Unavailable DONTA HAYNES Attending Clinician UnavailDonta Raphael MD Attending Clinician [phone] CRISTINA AZUL Attending Clinician UnavailKenya Lazcano Attending Clinician [phone] Doctor Unassigned, [place] Attending Clinician U Marilu Bingham LVN Attending Clinician [phone] MICHAEL ASHRAF Attending Clinician Unavailable Campbell Guerrero MD Attending Clinician [phone] Ayaan Yung DO Attending Clinician [phone] Michael Ashraf DO Attending Clinician [phone] Kim Patel PHD Attending Clinician [phone] KIM PATEL Attending Clinician JAZMYN Marie M.D. Attending Clinician UnavailCHANCE Lima APRN Attending Clinician Un available DONTA DELUNA Admitting Clinician Unavailable KENYA FUENTES Admitting Clinician Unavailable CAMPBELL GUERRERO Admitting Clinician Unava ilable Eranderek Ayaan VARGAS Admitting Clinician [phone] Payers Payer Name Policy Type Policy Number Effective Date Expirati on Date Source HIM [facility] [id number] 2023 00:00:00 [facility] LAURENCE TAMAYO COPAY FOCUS 9 [id number] 2023 00:00:00 [facility] [id number] 2018 00:00:00 Problems Condition Name Condition Details Condition Category Status Onset Date Resolution Date Last Treatment Date Treating Clinician Comments Source Need for hepatitis C screening test Need for hepatitis C screening test Disease Active 10-20 00:00: 00 [facility] Low bone density for age Low bone density for age Disease Active 10-20 00:00: 00 [facility] Encounter to establish care Encounter to establish care Disease Active 2021-09 00:00: 00 [facility] RLS (restless legs syndrome) RLS (restless legs syndrome) Disease Active 2021-09 00:00: 00 [facility] BMI less than 19,adult BMI less than 19,adult Disease Active 2021-09 00:00: 00 [facility] Encounter to establish care Encounter to establish care Disease Active 2021-09 00:00: 00 [facility] Drug overdose of undetermin ed intent, initial encounter Drug overdose of undetermin ed intent, initial encounter Disease Active 2021-09 00:00: 00 [facility] Bipolar 1 disorder, mixed anxiety-de pression, moderate Bipolar 1 disorder, mixed anxiety-de pression, moderate Disease Recurre nce 02-23 00:00: 00 [facility] Anxiety Anxiety Disease Active 02-23 00:00: 00 [facility] Underweigh t in childhood with BMI < 5th percentile Underweigh t in childhood with BMI < 5th percentile Disease Active 2017-09 00:00: 00 [facility] 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 Disease Active 04-19 00:00: 00 [facility] 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 Disease Active 04-19 00:00: 00 [facility] Nicotine abuse Nicotine abuse Disease Active 01-10 00:00: 00 [facility] Marijuana abuse, continuous Marijuana abuse, continuous Disease Active 01-10 00:00: 00 [facility] Attention deficit hyperactiv ity disorder (ADHD) Attention deficit hyperactiv ity disorder (ADHD) Disease Recurre nce 2006-09 00:00: 00 [facility] Major depressive disorder with current active [...] 2017-09 00:00: 00 2019-08-18 00:00:00 2019-08-18 10:02:15 [facility] Bipolar 2 disorder, major depressive episode Bipolar 2 disorder, major depressive episode Disease Resolve d 2018-1 1-16 00:00: 00 2019-02-23 00:00:00 2019-02-23 15:24:57 [facility] Episode of recurrent major depressive disorder Episode of recurrent major depressive disorder Disease Resolve d 04-19 00:00: 00 2019-02-23 00:00:00 2019-02-23 15:25:05 [facility] Esophageal reflux Esophageal reflux Disease Resolve d 2008-09 00:00: 00 2016-06-15 00:00:00 2016-06-15 20:21:02 [facility] SENSORY DISORDER SENSORY DISORDER Disease Resolve d 2006-09 00:00: 00 2016-06-15 00:00:00 2016-06-15 20:21:09 [facility] Bipolar disorder Bipolar disorder Disease Resolve d 2006-09 00:00: 00 2009-06-29 00:00:00 2022-04-13 00:12:08 [facility] Nonorganic enuresis Nonorganic enuresis Disease Resolve d 2006-09 00:00: 00 2009-05-18 00:00:00 2009-05-18 17:51:16 [facility] ASPERGER - continue to evaluate for ASPERGER - continue to evaluate for Disease Resolve d 2006-09 00:00: 00 2007-10-20 00:00:00 2007-10-20 16:52:33 [facility] Allergies, Adverse Reactions, Alerts Allergy Name Allergy Type Status Severity Reaction(s) Onset Date Inactive Date Treating Clinician Comments Source NO KNOWN ALLERGIE S Drug Class Active [facility] Social History Social Habit Start Date Stop Date Quantity Comments [facility] beverage intake 2024-07-29 00:00:00 2024-07-29 00:00:00 Current non-drinker of alcohol (finding) [facility] Exposure to SARS-CoV-2 (event) 2022-11-18 00:00:00 2022-11-28 11:48:00 Not sure [facility] Alcohol intake 2022-10-20 00:00:00 2022-10-20 00:00:00 Current non-drinker of alcohol (finding) [facility] Tobacco Comment 2022-09-05 00:00:00 2022-09-05 00:00:00 Vapes [facility] Tobacco use and exposure 2022-09-05 00:00:00 2022-09-05 00:00:00 Smokeless tobacco non-user [facility] Cigarettes smoked current (pack per day) - Reported 2022-09-05 00:00:00 2022-09-05 00:00:00 [facility] History of Social function 2019-04-07 00:00:00 2019-04-07 00:00:00 [facility] History of tobacco use 2018-07-08 00:00:00 Cigarette Smoker [facility] Sex assigned at 2002 00:00:00 2000 00:00:00 Whitney sylvia - External Smoking Status Start Date Stop Date Source Never smoked tobacco (finding) [facility] Tobacco smoking consumption unknown Whitney Gomes - External Smokes tobacco daily 2022-09-05 00:00:00 [facility] Ex-smoker 2022-09-01 00:00:00 2022-09-01 00:00:00 [facility] Medications Ordered Medication Name Filled Medication Name Start Date Stop Date Current Medication? Ordering Clinician Indication Dosage Frequency Signature (SIG) Comments Components Source ketorolac (TORADOL) injection 60 mg 2023-09 17:30: 00 07-29 17:31 :00 No 60mg 60 mg, Intramuscu lar, ONCE, 1 dose, On Thu07/29/24 at 1230, Routine [facility] gabapentin 100 mg capsule 2023-09 00:00: 00 08-04 05:59 :00 Yes [id number] 100mg Take 1 capsule by mouth in the morning and 1 capsule at noon and 1 capsule in the evening. Do all this for 5 days. [facility] NaCl 0.9% (NS) bolus infusion 2,000 mL 06-07 02:00: 00 06-07 03:10 :00 No 2000mL at 999 mL/hr, 2,000 mL, IV Infusion, ONCE, 1 dose, On Thu06/06/24 at 2100, MARIBEL [facility] hydrOXYzine (ATARAX) tablet 25 mg 06-07 01:45: 00 06-07 02:06 :00 No 25mg 25 mg, Oral, ONCE, 1 dose, On Thu06/06/24 at 2045, MARIBEL [facility] ondansetron (ZOFRAN) 4 mg tablet 12-02 00:00: 00 12-13 04:59 :00 No [id number] 4mg Take 1 tablet by mouth every 8 (eight) hours as needed for Nausea and Vomiting (N/V) for up to 10 days. [facility] OXcarbazepi ne 600 mg tablet 2021-09 14:31: 18 09-05 00:00 :00 No 600mg Take 600 mg by mouth 2 (two) times daily. [facility] LORazepam 1 mg Cp24 2021-09 14:27: 07 09-05 00:00 :00 No 1mg Take 1 mg by mouth 2 (two) times daily. [facility] olanzapine (ZYPREXA ORAL) 2021-09 14:26: 27 Yes Take by mouth 2 (two) times daily. [facility] gabapentin 600 mg tablet 2021-09 14:26: 27 Yes 600mg Take 600 mg by mouth in the morning and 600 mg at noon and 600 mg in the evening. [facility] SERTraline 100 mg tablet 2021-09 14:19: 22 09-05 00:00 :00 No 100mg Take 100 mg by mouth daily. [facility] nicotine (NICODERM) 21 mg/24 hr patch 1 Patch 2021-09 19:45: 00 Yes 1{patch } 1 Patch, Topical, Administer over 24 Hours, Q24H, First dose on Thu09/02/22 at 1345, Until Discontinu ed, Routine [facility] hydrOXYzine (ATARAX) tablet 10 mg 2021-09 19:30: 00 09-02 18:49 :00 No 10mg 10 mg, Oral, ONCE, 1 dose, On Thu09/02/22 at 1330, Routine [facility] gabapentin 600 mg tablet 2021-09 17:34: 50 Yes 600mg Take 600 mg by mouth in the morning and 600 mg at noon and 600 mg in the evening. [facility] OXcarbazepi ne 600 mg tablet 2021-09 15:34: 48 Yes 600mg Take 600 mg by mouth 2 (two) times daily. [facility] SERTraline 100 mg tablet 2021-09 15:34: 48 Yes 100mg Take 100 mg by mouth daily. Prescribed by [facility] - Apr 2019 [facility] olanzapine (ZYPREXA ORAL) 2021-09 15:34: 48 Yes Take by mouth 2 (two) times daily. Prescribed by [facility] - Apr 2019 [facility] LORazepam 1 mg Cp24 2021-09 15:34: 48 Yes 1mg Take 1 mg by mouth 2 (two) times daily. [facility] gabapentin 600 mg tablet 2021-09 15:34: 48 Yes 600mg Take 600 mg by mouth in the morning and 600 mg at noon and 600 mg in the evening. [facility] LORazepam (ATIVAN) tablet 1 mg 2021-09 15:00: 00 Yes 1mg 1 mg, Oral, QAM, First dose on Thu09/02/22 at 0900, Until Discontinu ed, Routine [facility] OLANZapine (ZyPREXA) tablet 15 mg 2021-09 03:00: 00 Yes 15mg 15 mg, Oral, QHS, First dose on Thu09/01/22 at 2100, Until Discontinu ed, [facility] (PAXIL[facility] 20 mg 2021-09 03:00: 00 Yes 20mg 20 mg, Oral, QHS, First dose on Thu09/01/22 at 2100, Until Discontinu ed, Routine [facility] gabapentin (NEURONTIN) tablet 600 mg 2021-09 02:00: 00 Yes 600mg 600 mg, Oral, TID, First dose on Thu09/01/22 at 2000, Until Discontinu ed, Routine [facility] acetaminoph en (TYLENOL) tablet 325 mg 2021-09 23:49: 00 09-02 00:20 :00 No 325mg 325 mg, Oral, ONCE, 1 dose, On Thu09/01/22 at 1800, [facility] clonazePAM (KLONOPIN) tablet 1 mg 2021-09 16:15: 00 Yes 1mg 1 mg, Oral, Q8H, First dose (after last modificati on) on Thu09/01/22 at 1015, Until Discontinu ed, Routine [facility] ketamine (KETALAR) injection 50 mg 2021-09 23:30: 00 08-31 07:04 :00 No 50mg 50 mg, Slow IV Push, ONCE, 1 dose, On Thu08/31/22 at 1730, [facility] clonazePAM 0.1 mg/mL oral suspension 1 mg 2021-09 20:00: 00 09-01 14:29 :11 No 1mg 1 mg, Oral, TID, First dose on Thu08/31/22 at 1400, Until Discontinu ed, Routine [facility] midazolam (VERSED) STD 50mg in NaCl 0.9% [...] at maximum allowed dose, contact prescriber .
[facility] enoxaparin (LOVENOX) injection 40 mg 2021-09 15:00: 00 Yes 40mg 40 mg, Subcutaneo us, DAILY, First dose on Thu08/31/22 at 0900, Until Discontinu ed, Routine [facility] dexMEDEtomi dine 200 mcg in 0.9 % NaCl 50 mL (PRECEDEX) RTU IV infusion 2021-09 14:33: 19 09-02 00:39 :35 No .2ug/kg /h 0.2-1.5 mcg/kg/hr ?61 kg (3.05-22.8 75 mL/hr, rounded to 3.05-22.88 mL/hr), IV Infusion, TITRATE, Sedation-R ASS score (0 to -1), Starting on [place] 08/31/22 at 0833
In itiate infusion at 0.2 mcg/kg/hr and titrate by 0.1 mcg/kg/hr every 30 minutes to goal sedation score. Maximum dose = 1.5 mcg/kg/hr. If goal not maintained at maximum allowed dose, contact prescriber .
[facility] fentaNYL PF (SUBLIMAZE) STD 2,500 mcg in NaCl 0.9% (NS) 250 mL infusion RTU 2021-09 08:03: 47 09-01 11:18 :51 No 25ug/h 25-200 mcg/hr (2.5-20 mL/hr), IV Infusion, TITRATE, CPOT/Pain Scale Goals Determined by Provider, Starting on [place] 08/31/22 at 0203
In itiate infusion at 25 mcg/hr. Titrate by 25 mcg/hr every 1 minute to 15 minutes to identified goal pain and/or sedation scores. Maximum dose = 200 mcg/hr. If goal not maintained at maximum allowed dose, contact prescriber .
[facility] FENTanyl PF (SUBLIMAZE (PF)) injection 50 mcg 2021-09 08:00: 00 08-31 07:14 :00 No 50ug 50 mcg, Slow IV Push, ONCE, 1 dose, On [place] 08/31/22 at 0200, Routine [facility] propofoL IV infusion 2021-09 07:24: 17 08-31 07:09 :53 No 5ug/kg/ min 5-50 mcg/kg/min ?61 kg (1.83-18.3 mL/hr), IV Infusion, TITRATE, Sedation-R ASS score (0 to -1), Starting on [place] 08/31/22 at 0124
In itiate infusion at 5 mcg/kg/min and titrate by 5 mcg/kg/min every 30 seconds to 10 minutes to goal sedation score. Maximum dose = 50 mcg/kg/min . If goal not maintained at maximum allowed dose, contact prescriber . &nbs p;Tubing and unused portions of vials should be discarded after 12 hours.
[facility] lactated ringers IV infusion 1,000 mL 2021-09 07:15: 00 08-31 07:00 :00 No 1000mL at 999 mL/hr, 1,000 mL, Intravenou s, ONCE, 1 dose, On [place] 08/31/22 at 0115, Routine [facility] midazolam (VERSED) STD 50mg in NaCl [...] at maximum allowed dose, contact prescriber .
[facility] gabapentin 300 mg/6 mL (6 mL) solution 2021-09 23:09: 11 08-30 00:00 :00 No Take by mouth 2 (two) times daily. prescribed at [facility] no summer 2018 [facility] PARoxetine 20 mg tablet 2021-09 00:00: 00 Yes 20mg Take 20 mg by mouth in the morning. [facility] LORazepam 1 mg tablet 2021-09 00:00: 00 Yes 1mg Take 1 mg by mouth in the morning. [facility] SERTraline 100 mg tablet 10-22 18:52: 12 Yes 100mg Take 100 mg by mouth daily. Prescribed by [facility] - Apr 2019 [facility] olanzapine (ZYPREXA ORAL) 10-22 18:52: 09 Yes Take by mouth 2 (two) times daily. Prescribed by [facility] - Apr 2019 [facility] gabapentin 300 mg/6 mL (6 mL) solution 10-22 18:52: 07 Yes Take by mouth 2 (two) times daily. prescribed at [facility] no summer 2018 [facility] OXcarbazepi ne (TRILEPTAL) 600 mg tablet 10-22 18:52: 06 Yes 600mg Take 600 mg by mouth 2 (two) times daily. [facility] Sertraline HCl - 50 MG Oral [...] (1) TABLET(S) BY MOUTH TWICE A DAY. [facility] ans busPIRone 15 mg tablet 03-03 00:00: 00 Yes [id number] 15mg Take 1 tablet by mouth 2 (two) times daily. [facility] DULoxetine 60 mg capsule 03-01 00:00: 00 Yes [id number] 60mg Take 1 capsule by mouth daily. [facility] DULoxetine 30 mg capsule 03-01 00:00: 00 Yes [id number] 30mg Take 1 capsule by mouth daily. [facility] OXcarbazepi ne (TRILEPTAL) 600 mg tablet 02-23 19:48: 44 Yes 600mg Take 600 mg by mouth 2 (two) times daily. [facility] traZODONE 50 mg tablet 02-23 00:00: 00 Yes [id number] 25mg Take 0.5 tablets by mouth 2 (two) times daily. [facility] Multi-Vitam in TABS Multi-Vitam in TABS Yes M.A. [facility] ans Immunizations Ordered Immunization Name Filled Immunization Name Date Status Comments Source Gardasil 9 Intramuscular Suspension 2018-05-25 00:00:00 Completed [facility] Meningococcal, MCV4, unspecified conjugate formulation(groups A, C, Y and W-135) 2018-05-25 00:00:00 Completed [facility] Boostrix 5-2.5-18.5 Intramuscular Suspension 2018-05-21 00:00:00 Completed [facility] influenza virus vaccine, unspecified formulation 2017-09-03 00:00:00 Completed [facility] influenza virus vaccine, unspecified formulation 2016-07-01 00:00:00 Completed [facility] FluMist Quadrivalent Nasal Suspension 2015-08-06 00:00:00 Completed [facility] Boostrix 5-2.5-18.5 Intramuscular Suspension 2014-12-28 00:00:00 Completed [facility] Meningococcal, MCV4, unspecified conjugate formulation(groups A, C, Y and W-135) 2014-12-28 00:00:00 Completed [facility] influenza virus vaccine, unspecified formulation 2014-06-23 00:00:00 Completed [facility] Gardasil Intramuscular Suspension 2014-05-25 00:00:00 Completed [facility] Boostrix 5-2.5-18.5 Intramuscular Suspension 2014-05-25 00:00:00 Completed [facility] Meningococcal, MCV4, unspecified conjugate formulation(groups A, C, Y and W-135) 2014-05-25 00:00:00 Completed [facility] TDAP 2014-05-25 00:00:00 Completed [facility] Meningococcal Polysaccharide (groups A, C, Y and W-135) conjugate vaccine (MCV4P) 2014-05-25 00:00:00 Completed [facility] HPV 2014-05-25 00:00:00 Completed [facility] TDAP 2014-05-25 00:00:00 Completed [facility] Meningococcal Polysaccharide (groups A, C, Y and W-135) conjugate vaccine (MCV4P) 2014-05-25 00:00:00 Completed [facility] HPV 2014-05-25 00:00:00 Completed [facility] TDAP 2014-05-25 00:00:00 Completed [facility] Meningococcal Polysaccharide (groups A, C, Y and W-135) conjugate vaccine (MCV4P) 2014-05-25 00:00:00 Completed [facility] HPV 2014-05-25 00:00:00 Completed [facility] TDAP 2014-05-25 00:00:00 Completed [facility] Meningococcal Polysaccharide (groups A, C, Y and W-135) conjugate vaccine (MCV4P) 2014-05-25 00:00:00 Completed [facility] HPV 2014-05-25 00:00:00 Completed [facility] TDAP 2014-05-25 00:00:00 Completed [facility] Meningococcal Polysaccharide (groups A, C, Y and W-135) conjugate vaccine (MCV4P) 2014-05-25 00:00:00 Completed [facility] Tdap 2014-05-25 00:00:00 Completed [facility] HPV 2014-05-25 00:00:00 Completed [facility] Meningococcal Polysaccharide (groups A, C, Y and W-135) conjugate vaccine (MCV4P) 2014-05-25 00:00:00 Completed [facility] HPV 2014-05-25 00:00:00 Completed [facility] TDAP 2014-05-25 00:00:00 Completed [facility] Meningococcal Polysaccharide (groups A, C, Y and W-135) conjugate vaccine (MCV4P) 2014-05-25 00:00:00 Completed [facility] HPV 2014-05-25 00:00:00 Completed [facility] TDAP 2014-05-25 00:00:00 Completed [facility] Meningococcal Polysaccharide (groups A, C, Y and W-135) conjugate vaccine (MCV4P) 2014-05-25 00:00:00 Completed [facility] HPV 2014-05-25 00:00:00 Completed [facility] TDAP 2014-05-25 00:00:00 Completed [facility] Meningococcal Polysaccharide (groups A, C, Y and W-135) conjugate vaccine (MCV4P) 2014-05-25 00:00:00 Completed [facility] HPV 2014-05-25 00:00:00 Completed [facility] TDAP 2014-05-25 00:00:00 Completed [facility] Meningococcal Polysaccharide (groups A, C, Y and W-135) conjugate vaccine (MCV4P) 2014-05-25 00:00:00 Completed [facility] HPV 2014-05-25 00:00:00 Completed [facility] TDAP 2014-05-25 00:00:00 Completed [facility] Meningococcal Polysaccharide (groups A, C, Y and W-135) conjugate vaccine (MCV4P) 2014-05-25 00:00:00 Completed [facility] HPV 2014-05-25 00:00:00 Completed [facility] Tdap 2014-05-25 00:00:00 Completed [facility] TDAP 2014-05-25 00:00:00 Completed [facility] Meningococcal Polysaccharide (groups A, C, Y and W-135) conjugate vaccine (MCV4P) 2014-05-25 00:00:00 Completed [facility] HPV 2014-05-25 00:00:00 Completed [facility] Meningococcal Polysaccharide (groups A, C, Y and W-135) conjugate vaccine (MCV4P) 2014-05-25 00:00:00 Completed [facility] HPV 2014-05-25 00:00:00 Completed [facility] TDAP 2014-05-25 00:00:00 Completed [facility] Meningococcal Polysaccharide (groups A, C, Y and W-135) conjugate vaccine (MCV4P) 2014-05-25 00:00:00 Completed [facility] HPV 2014-05-25 00:00:00 Completed [facility] TDAP 2014-05-25 00:00:00 Completed [facility] Meningococcal Polysaccharide (groups A, C, Y and W-135) conjugate vaccine (MCV4P) 2014-05-25 00:00:00 Completed [facility] HPV 2014-05-25 00:00:00 Completed [facility] TDAP 2014-05-25 00:00:00 Completed [facility] Meningococcal Polysaccharide (groups A, C, Y and W-135) conjugate vaccine (MCV4P) 2014-05-25 00:00:00 Completed [facility] HPV 2014-05-25 00:00:00 Completed [facility] TDAP 2014-05-25 00:00:00 Completed [facility] Meningococcal Polysaccharide (groups A, C, Y and W-135) conjugate vaccine (MCV4P) 2014-05-25 00:00:00 Completed HPV 2014-05-25 00:00:00 Completed TDAP 2014-05-25 00:00:00 Completed [facility] Meningococcal Polysaccharide (groups A, C, Y and W-135) conjugate vaccine (MCV4P) 2014-05-25 00:00:00 Completed [facility] HPV 2014-05-25 00:00:00 Completed [facility] influenza virus vaccine, unspecified formulation 2009-08-09 00:00:00 Completed [facility] H1n1 Vaccine 2009-08-09 00:00:00 Completed [facility] Influenza Virus Vaccine 2009-08-09 00:00:00 Completed [facility] H1n1 Vaccine 2009-08-09 00:00:00 Completed [facility] Influenza Virus Vaccine 2009-08-09 00:00:00 Completed [facility] H1n1 Vaccine 2009-08-09 00:00:00 Completed [facility] Influenza Virus Vaccine 2009-08-09 00:00:00 Completed [facility] H1n1 Vaccine 2009-08-09 00:00:00 Completed [facility] Influenza Virus Vaccine 2009-08-09 00:00:00 Completed [facility] H1n1 Vaccine 2009-08-09 00:00:00 Completed [facility] Influenza Virus Vaccine 2009-08-09 00:00:00 Completed [facility] H1n1 Vaccine 2009-08-09 00:00:00 Completed [facility] Influenza Virus Vaccine 2009-08-09 00:00:00 Completed [facility] H1n1 Vaccine 2009-08-09 00:00:00 Completed [facility] Influenza Virus Vaccine 2009-08-09 00:00:00 Completed [facility] H1n1 Vaccine 2009-08-09 00:00:00 Completed [facility] Influenza Virus Vaccine 2009-08-09 00:00:00 Completed [facility] H1n1 Vaccine 2009-08-09 00:00:00 Completed [facility] Influenza Virus Vaccine 2009-08-09 00:00:00 Completed [facility] H1n1 Vaccine 2009-08-09 00:00:00 Completed [facility] Influenza Virus Vaccine 2009-08-09 00:00:00 Completed [facility] H1n1 Vaccine 2009-08-09 00:00:00 Completed [facility] Influenza Virus Vaccine 2009-08-09 00:00:00 Completed [facility] H1n1 Vaccine 2009-08-09 00:00:00 Completed [facility] Influenza Virus Vaccine 2009-08-09 00:00:00 Completed [facility] H1n1 Vaccine 2009-08-09 00:00:00 Completed [facility] Influenza Virus Vaccine 2009-08-09 00:00:00 Completed [facility] H1n1 Vaccine 2009-08-09 00:00:00 Completed [facility] Influenza Virus Vaccine 2009-08-09 00:00:00 Completed [facility] H1n1 Vaccine 2009-08-09 00:00:00 Completed [facility] Influenza Virus Vaccine 2009-08-09 00:00:00 Completed [facility] H1n1 Vaccine 2009-08-09 00:00:00 Completed [facility] Influenza Virus Vaccine 2009-08-09 00:00:00 Completed [facility] H1n1 Vaccine 2009-08-09 00:00:00 Completed Influenza Virus Vaccine 2009-08-09 00:00:00 Completed H1n1 Vaccine 2009-08-09 00:00:00 Completed [facility] Influenza Virus Vaccine 2009-08-09 00:00:00 Completed [facility] influenza virus vaccine, unspecified formulation 2009-07-04 00:00:00 Completed [facility] Influenza Virus Vaccine 2009-07-04 00:00:00 Completed [facility] Influenza Virus Vaccine 2009-07-04 00:00:00 Completed [facility] Influenza Virus Vaccine 2009-07-04 00:00:00 Completed [facility] Influenza Virus Vaccine 2009-07-04 00:00:00 Completed [facility] Influenza Virus Vaccine 2009-07-04 00:00:00 Completed [facility] Influenza Virus Vaccine 2009-07-04 00:00:00 Completed [facility] Influenza Virus Vaccine 2009-07-04 00:00:00 Completed [facility] Influenza Virus Vaccine 2009-07-04 00:00:00 Completed [facility] Influenza Virus Vaccine 2009-07-04 00:00:00 Completed [facility] Influenza Virus Vaccine 2009-07-04 00:00:00 Completed [facility] Influenza Virus Vaccine 2009-07-04 00:00:00 Completed [facility] Influenza Virus Vaccine 2009-07-04 00:00:00 Completed [facility] Influenza Virus Vaccine 2009-07-04 00:00:00 Completed [facility] Influenza Virus Vaccine 2009-07-04 00:00:00 Completed [facility] Influenza Virus Vaccine 2009-07-04 00:00:00 Completed [facility] Influenza Virus Vaccine 2009-07-04 00:00:00 Completed [facility] Influenza Virus Vaccine 2009-07-04 00:00:00 Completed [facility] Influenza Virus Vaccine 2009-07-04 00:00:00 Completed [facility] hepatitis A vaccine, pediatric/adolescent dosage, 2 dose [...] [facility] Influenza Virus Vaccine Unknown Completed [facility] H1n1 Vaccine Unknown Completed [facility] TDAP Unknown Completed [facility] Meningococcal Polysaccharide (groups A, C, Y and W-135) conjugate vaccine (MCV4P) Unknown Completed [facility] HPV Unknown Completed [facility] Vital Signs Vital Name Observation Time Observation Value Comments S ource Systolic blood pressure 2024-07-29 19:40:00 116 mm[Hg] [facility] Diastolic blood pressure 2024-07-29 19:40:00 78 mm[Hg] [facility] Heart rate 2024-07-29 19:40:00 93 /min [facility] Respiratory rate 2024-07-29 19:40:00 16 /min [facility] Oxygen saturation in Arterial blood by Pulse oximetry 2024-07-29 19:40:00 98 /min [facility] Body temperature 2024-07-29 16:40:00 36.39 Jeana [facility] Body height 2024-07-29 16:40:00 172.7 cm [facility] Body weight 2024-07-29 16:40:00 49.896 kg [facility] BMI 2024-07-29 16:40:00 16.73 kg/m2 [facility] Systolic blood pressure 2024-06-07 03:00:00 73 mm[Hg] [facility] Diastolic blood pressure 2024-06-07 03:00:00 64 mm[Hg] [facility] Body temperature 2024-06-07 03:00:00 36.61 Jeana [facility] Respiratory rate 2024-06-07 03:00:00 25 /min [facility] Oxygen saturation in Arterial blood by Pulse oximetry 2024-06-07 03:00:00 98 /min [facility] Heart rate 2024-06-07 00:52:00 67 /min [facility] Body height 2024-06-07 00:52:00 172.7 cm [facility] Body weight 2024-06-07 00:52:00 51.256 kg [facility] BMI 2024-06-07 00:52:00 17.18 kg/m2 [facility] Systolic blood pressure 2024-06-02 15:36:00 116 mm[Hg] [...] Systolic blood pressure 2022-11-28 17:50:00 104 mm[Hg] [facility] Diastolic blood pressure 2022-11-28 17:50:00 52 mm[Hg] [facility] Heart rate 2022-11-28 17:50:00 106 /min [facility] Body height 2022-11-28 17:50:00 172.7 cm [facility] Body weight 2022-11-28 17:50:00 62.551 kg [facility] BMI 2022-11-28 17:50:00 20.97 kg/m2 [facility] Oxygen saturation in Arterial blood by Pulse oximetry 2022-11-28 17:50:00 93 /min [facility] Systolic blood pressure 2022-10-20 14:09:00 108 mm[Hg] [facility] Diastolic blood pressure 2022-10-20 14:09:00 65 mm[Hg] [facility] Heart rate 2022-10-20 14:09:00 95 /min [facility] Body temperature 2022-10-20 14:09:00 37.06 Jeana [facility] Body height 2022-10-20 14:09:00 172.7 cm [facility] Body weight 2022-10-20 14:09:00 58.968 kg [facility] BMI 2022-10-20 14:09:00 19.77 kg/m2 [facility] Oxygen saturation in Arterial blood by Pulse oximetry 2022-10-20 14:09:00 98 /min [facility] Systolic blood pressure 2022-09-05 20:22:00 101 mm[Hg] [facility] Diastolic blood pressure 2022-09-05 20:22:00 64 mm[Hg] [facility] Heart rate 2022-09-05 20:22:00 62 /min [facility] Body temperature 2022-09-05 20:22:00 36.33 Jeana [facility] Body height 2022-09-05 20:22:00 172.7 cm [facility] Body weight 2022-09-05 20:22:00 56.337 kg [facility] BMI 2022-09-05 20:22:00 18.88 kg/m2 [facility] Oxygen saturation in Arterial blood by Pulse oximetry 2022-09-05 20:22:00 97 /min [facility] Systolic blood pressure 2022-09-03 05:40:00 110 mm[Hg] [facility] Diastolic blood pressure 2022-09-03 05:40:00 81 mm[Hg] [facility] Heart rate 2022-09-03 05:40:00 64 /min [facility] Body temperature 2022-09-03 05:40:00 37.22 Jeana [facility] Respiratory rate 2022-09-03 05:40:00 18 /min [facility] Body height 2022-09-03 05:40:00 172.7 cm [facility] Body weight 2022-09-03 05:40:00 57.153 kg [facility] BMI 2022-09-03 05:40:00 19.16 kg/m2 [facility] Oxygen saturation in Arterial blood by Pulse oximetry 2022-09-03 05:40:00 100 /min [facility] Systolic blood pressure 2022-09-02 17:17:00 114 mm[Hg] [facility] Diastolic blood pressure 2022-09-02 17:17:00 75 mm[Hg] [facility] Heart rate 2022-09-02 17:17:00 81 /min [facility] Body temperature 2022-09-02 17:17:00 36.61 Jeana [facility] Respiratory rate 2022-09-02 17:17:00 18 /min [facility] Oxygen saturation in Arterial blood by Pulse oximetry 2022-09-02 17:17:00 99 /min [facility] Body weight 2022-09-01 19:40:00 61 kg [facility] BMI 2022-09-01 19:40:00 20.45 kg/m2 [facility] Body height 2022-09-01 19:36:00 172.7 cm [facility] BP Systolic 2019-10-20 12:54:00 118 mm[Hg] [...] Rate 2019-02-24 10:04:00 62 /min Quality: Normal [facility] Respiration Rate 2019-02-24 10:04:00 18 /min Quality: Normal [facility] O2 SAT 2019-02-24 10:04:00 100 % [...] 2+ VW LEFT 2024-07-29 17:33:31 Donta Deluna [facility] CREATINE KINASE 2024-06-07 01:23:00 Trinidad Estrada [facility] MAGNESIUM 2024-06-07 01:23:[address] [facility] COMP. METABOLIC PANEL ([id number]) 2024-06-07 01:23:00 Trinidad Estrada [facility] CBC WITH DIFF 2024-06-07 01:23:00 [facility] 2024-06-07 01:23:[address] [facility] URINE DRUG (IMMUNOASSAY) - COMPREHENSIVE DRUG SCREEN W/O REFLEX 2024-06-07 01:23:00 Trinidad Estrada [facility] PATIENT FINANCIAL POLICY 2022-11-28 17:49:34 Doctor Unassigned, [place] [facility] EXTERNAL PROVIDER RECORDS 2022-11-19 06:01:00 Doctor Unassigned, [place] [facility] DEXA AXIAL (HIP AND SPINE) 2022-09-17 19:58:00 Kenya Fuentes [facility] EXTERNAL PROVIDER RECORDS 2022-09-16 06:01:00 Doctor Unassigned, [place] [facility] ASSIGNMENT OF BENEFITS 2022-09-05 19:47:49 Docto r Unassigned, [place] [facility] COMP. METABOLIC PANEL ([id number]) 2022-09-01 10:44:00 Marilyn Mitchell [facility] CBC WITH DIFF 2022-09-01 10:44:00 Nati Mitchell [facility] XR CHEST 1 VW 2022-09-01 10:15:00 [facility] 2022-08-31 09:35:00 Dolly Beasley [facility] MAGNESIUM 2022-08-31 09:35:00 Jael Coppola [facility] TROPONIN I 2022-08-31 09:35:00 Jael Coppola [facility] COMP. METABOLIC PANEL ([id number]) 2022-08-31 09:35:00 Jael Coppola [facility] SALICYLATE 2022-08-31 09:35:00 Jael Coppola [facility] ETHANOL 2022-08-31 09:35:00 Jael Coppola [facility] CBC WITH DIFF 2022-08-31 09:35:00 Jael Coppola [facility] URINE DRUG (IMMUNOASSAY) - COMPREHENSIVE DRUG SCREEN 2022-08-31 09:07:00 Jael Coppola [facility] URINE DRUG (LCMSMS) - COMPREHENSIVE DRUG PANEL 2022-08-31 09:07:00 Jael Coppola [facility] AC PANEL 20 + LACTIC ACID 2022-08-31 09:01:00 Jael Coppola [facility] XR CHEST 1 VW 2022-08-31 05:44:00 Jael Coppola [facility] XR KUB 2022-08-31 05:44:00 Jael Coppola [facility] AUTHORIZATION FOR RELEASE OF PHI 2020-08-21 06:01:00 Doctor Unassigned, [place] [facility] [[facility]] CBC (INCLUDES DIFF/PLT) 2019-10-20 00:00:00 [facility] [[facility]] CMP W/EGFR 2019-10-20 00:00:00 [facility]] LIPID PANEL 2019-10-20 00:00:00 [facility] [[facility]] TSH, 3RD GENERATION 2019-10-20 00:00:00 [facility] [Q] DRUG SCREEN,COMPREHENSIVE (URINE) 2019-07-20 00:00:00 [facility] [Q] DRUG SCREEN,COMPREHENSIVE (URINE) 2019-02-24 00:00:00 [facility] Encounters Start Date/Time End Date/Time Encounter Type Admission Type Attending Clinicians [facility] Care Department Encounter ID Source 2024-07-29 11:41:00 2024-07-29 15:18:00 Emergency X DONTA DELUNA [facility] ERT [id number] [facility] 2024-07-29 11:41:00 2024-07-29 15:18:00 Emergency Donta Deluna [facility] 1..840.114 350.1.13.10 4.2.7.2.686 [id number] [facility] 2024-06-09 09:30:00 2024-06-09 09:30:00 Outpatient VERNON SAMANIEGO [id number] [facility] 2024-06-08 00:00:00 2024-06-08 00:00:00 Outpatient VERNON SAMANIEGO [id number] [facility] 2024-06-07 00:00:00 2024-06-07 00:00:00 Outpatient IHSAN CHEN [id number] [facility] 2024-06-06 20:03:00 2024-06-06 22:17:00 Emergency X TRINIDAD ESTRADA SANDRA [facility] ERT [id number] [facility] 2024-06-06 20:03:00 2024-06-06 22:17:00 Emergency Trinidad Estrada [facility] ..840.114 350.1.13.10 4.2.7.2.686 [id number] [facility] 2024-06-02 11:20:00 2024-06-02 11:20:00 Outpatient ILEANA LAIRD WHITNEY [id number] [facility] 2024-06-02 10:30:00 2024-06-02 10:30:00 Outpatient IHSAN CHEN WHITNEY [id number] [facility] 2024-05-18 15:15:00 2024-05-18 15:15:00 Outpatient ALLEN CANNON WHITNEY LAIRD [id number] [facility] 2024-05-18 15:15:00 2024-05-18 15:15:00 Outpatient FANINixonALLEN WHITNEY LAIRD [id number] [facility] 2023-04-24 11:00:00 2023-04-24 11:00:00 Outpatient DONTA CUEVAS [facility] [id number] [facility] 2022-12-30 00:00:00 2022-12-30 00:00:00 Telephone Donta Haynes [facility] 1.2.840.114 350.1.13.10 4.2.7.2.686 [id number] [facility] 2022-12-03 14:00:00 2022-12-03 14:00:00 Outpatient KENYA CHOUDHARY [facility] [id number] [facility] 2022-12-02 00:00:00 2022-12-02 00:00:00 Telephone Kenya Fuentes [facility] 1.2.840.114 350.1.13.10 4.2.7.2.686 [id number] [facility] 2022-11-28 12:00:00 2022-11-28 13:03:08 Outpatient DONTA CUEVAS [facility] [id number] [facility] 2022-11-28 12:00:00 2022-11-28 13:03:08 Office Visit Donta Haynes [facility] 1.2.840.114 350.1.13.10 4.2.7.2.686 [id number] [facility] 2022-11-28 00:00:00 2022-11-28 00:00:00 Orders Only Doctor Unassigned, [place] [facility] 1.2840.114 350.1.13.10 4.2.7.2.686 [id number] [facility] 2022-11-19 00:00:00 2022-11-19 00:00:00 Orders Only Doctor Unassigned, [place] [facility] 1.2840.114 350.1.13.10 4.2.7.2.686 [id number] [facility] 2022-10-20 08:00:00 2022-10-20 08:45:36 Outpatient R KENYA FUENTES [facility] [id number] [facility] 2022-10-20 08:00:00 2022-10-20 08:45:36 Office Visit [facility] 1.2.840.114 350.1.13.10 4.2.7.2.686 [id number] [facility] 2022-09-23 00:00:00 2022-09-23 00:00:00 Telephone Alfredo Kenya [facility] 1.2.840.114 350.1.13.10 4.2.7.2.686 [id number] [facility] 2022-09-17 13:39:39 2022-09-17 23:59:00 Outpatient R KENYA FUENTES [facility] [id number] [facility] 2022-09-17 13:39:39 2022-09-17 23:59:00 Hospital Encounter Kenya Fuentes [facility] 1.2.840.114 350.1.13.10 4.2.7.2.686 [id number] [facility] 2022-09-16 00:00:00 2022-09-16 00:00:00 Orders Only Doctor Unassigned, [place] [facility] 1.2840.114 350.1.13.10 4.2.7.2.686 [id number] [facility] 2022-09-05 14:00:00 2022-09-05 14:51:04 Outpatient R KENYA FUENTES [facility] [id number] [facility] 2022-09-05 14:00:00 2022-09-05 14:51:04 Office Visit Kenya Fuentes [facility] 1.114 350.1.13.10 4.2.7.2.686 [id number] [facility] 2022-09-05 00:00:00 2022-09-05 00:00:00 Orders Only Doctor Unassigned, [place] [facility] 1.20.114 350.1.13.10 4.2.7.2.686 [id number] [facility] 2022-09-03 00:00:00 2022-09-03 00:00:00 Transition of Care Marilu Steiner 1.20.114 350.1.13.10 4.2.7.2.686 [id number] [facility] 2022-09-02 23:43:00 2022-09-02 23:56:00 Emergency X TRINIDAD ESTRADA [facility] ERT [id number] [facility] 2022-09-02 23:43:00 2022-09-02 23:56:00 Emergency Trinidad Estrada [facility] 1.0.114 350.1.13.10 4.2.7.2.686 [id number] [facility] 2022-08-30 22:42:00 2022-09-02 15:34:00 Inpatient X MICHAEL ASHRAF [facility] [id number] [facility] 2022-08-30 22:42:00 2022-09-02 15:34:00 Hospital Encounter Campbell Guerrero, Ayaan Andriy Michael [facility] 1.2.840.114 350.1.13.10 4.2.7.2.686 [id number] [facility] 2020-08-21 00:00:00 2020-08-21 00:00:00 Orders Only Doctor Unassigned, [place] [facility] 1.2.840.114 350.1.13.10 4.2.7.2.686 [id number] 2020-08-21 00:00:00 2020-08-21 00:00:00 Orders Only Doctor Unassigned, [place] [facility] 1.2.840.114 350.1.13.10 4.2.7.2.686 [id number] [facility] 2019-12-08 13:05:19 2019-12-08 14:05:19 Office Visit Kim Patel [facility] [place] 1.2.840.114 350.1.13.10 4.2.7.2.686 [id number] 2019-12-08 13:05:19 2019-12-08 14:05:19 Office Visit Kim Patel [facility] [place] 1.2.840.114 350.1.13.10 4.2.7.2.686 [id number] [facility] 2019-12-08 13:15:00 2019-12-08 13:15:00 Outpatient R KIM PATEL [facility] [id number] [facility] 2019-10-20 13:00:00 2019-10-20 13:00:00 Appointmen t; JAZMNY ESPINAL M.D. MEMON, SABA, M.D. [facility] [id number] [facility] 2019-07-20 13:00:00 2019-07-20 13:00:00 Appointmen t; JAZMYN ESPINAL M.D. MEMON, SABA, M.D. [facility] Psychiatry Out[facility] [id number] [facility] 2019-06-08 00:00:00 2019-06-08 00:00:00 Telephone Kim Patel [facility] [place] 1.2.840.114 350.1.13.10 4.2.7.2.686 [id number] [facility] 2019-02-24 10:00:00 2019-02-24 10:00:00 Appointmen t; JAZMYN ESPINAL M.D. MEMON, SABA, M.D. [facility] [id number] [facility] 2019-02-07 10:20:00 2019-02-07 10:20:00 Appointmen t; CHANCE VAZQUEZ APRN WILLIAMSON, TIFFINY, APRN [facility] [id number] [facility] Results Test Description Test Time Test Comments Results Resul t Comments Source XR SHOULDER 2+ VW LEFT 2024-07-29 18:46:43 ORDERING PHYSICIAN: DONTA DELUNA HISTORY: ?pain TECHNIQUE:Three views of the left shoulder . Technical quality: Diagnostic. COMPARISON: None FINDINGS: There is no fracture or dislocation. ? ?Soft tissues are unremarkable. [facility] ([id number][facility]2024-06-07 01:51:42* Test Item Value Reference Range Interpretation Comme nts NA (test code = 7007505022) 138 mmol/L 135-145 K (test code = 6954270534) 3.6 mmol/L 3.5-5.0 CL (test code = 5779406417) 101 mmol/L 98-108 CO2 TOTAL (test code = 1969518095) 26 mmol/L 23-31 AGAP (test code = 9537786019) 11 2-16 BUN (test code = 6734396996) 7 mg/dL 7-23 GLUCOSE (test code = 2826049784) 98 mg/dL 70-110 CREATININE (test code = 2160-0) 0.84 mg/dL 0.60-1.25 TOTAL BILI (test code = 7469594225) 1.4 mg/dL 0.1-1.1 H CALCIUM (test code = 0416774553) 9.4 mg/dL 8.6-10.6 T PROTEIN (test code = 4835480907) 7.3 g/dL 6.3-8.2 ALBUMIN (test code = 5567736424) 4.6 g/dL 3.5-5.0 ALK PHOS (test code = 3625347661) 109 U/L 34-122 ALTv (test code = 1742-6) 18 U/L 5-50 AST(SGOT) (test code = 1451743692) 23 U/L 13-40 eGFR (test code = 65193-3) 127.2 mL/min/1.73m2 CKD-EPI eGFR (2020). Assuming creatinine has been stable day-to-day for at least three months, the eGFR indicates Category G1 (>= 90 mL/min/1.73 m2) Lab Interpretation (test code = 33983-3) [id number] 01:51:22* Test Item Value Reference Range Interpretation Comme nts CK (test code = 6805108616) 195 U/L 33-194 H Lab Interpretation (test cod e = 08927-0) [facility] [id number] 01:40:20* Test Item Value Reference Range Interpretation [...] 33.7 g/dL 31.2-35.0 RDW-SD (test code = 31024-2) 44.1 fL 38.5-51.6 RDW-CV (test code = 788-0) 13.2 % 12.1-15.4 PLT (test code = 777-3) 266 150-328 MPV (test code = 14804-7) 10.2 fL 9.8-13.0 NRBC/100 WBC (test code = 9987846269) 0.0 0.0-10.0 NRBC x10^3 (test code = 5764864073) See_Comment [Automated message] The system which generated this result transmitted reference range: 10*3/?L. The reference range was not used to interpret this result as normal/abnormal. GRAN MAT (NEUT) % (test code = 770-8) 75.6 % IMM GRAN % (test code = 7569149007) 0.40 % LYMPH % (test code = 736-9) 12.1 % MONO % (test code = 5905-5) 10.5 % EOS % (test code = 713-8) 0.9 % BASO % (test code = 706-2) 0.5 % GRAN MAT x10^3(ANC) (test code = 8748693957) 10.09 10*3/uL 1.99-6.95 H IMM GRAN x10^3 (test code = 6437072885) 0.06 10*3/uL 0.00-0.06 LYMPH x10^3 (test code = 731-0) 1.61 10*3/uL 1.09-3.23 MONO x10^3 (test code = 742-7) 1.40 10*3/uL 0.36-1.02 H EOS x10^3 (test code = 711-2) 0.12 10*3/uL 0.06-0.53 BASO x10^3 (test code = 704-7) 0.07 10*3/uL 0.01-0.09 Lab Interpretation (test code = 82457-5) [id number][facility] 11:26:16* Test Item Value Reference Range Interpretation Comme nts NA (test code = 5055096579) 138 mmol/L 135-145 K (test code = 5910746185) 3.5 mmol/L 3.5-5.0 Slight hemolysis CL (test code = 7091374341) 110 mmol/L 98-108 H CO2 TOTAL (test code = 4648208539) 26 mmol/L 23-31 AGAP (test code = 9689376946) 2-16 BUN (test code = 3900304814) 9 mg/dL 7-23 Slight hemolysis GLUCOSE (test code = 2758902113) 99 mg/dL 70-110 CREATININE (test code = 5112131058) 0.73 mg/dL 0.60-1.25 TOTAL BILI (test code = 7814371837) 0.9 mg/dL 0.1-1.1 CALCIUM (test code = 5096312258) 8.2 mg/dL 8.6-10.6 L T PROTEIN (test code = 1121615757) 5.5 g/dL 6.3-8.2 L ALBUMIN (test code = 3652429881) 3.3 g/dL 3.5-5.0 L ALK PHOS (test code = 6892630688) 75 U/L 34-122 Slight hemolysis ALTv (test code = 1742-6) 16 U/L 5-50 AST(SGOT) (test code = 4577389086) 30 U/L 13-40 Slight hemolysis eGFR (test code = 1738126034) mL/min/1.73m2 KACI (test code = KACI) Association [...] imaging tests). Lab Interpretation (test code = 68417-1) Abnormal [facility] WITH [id number] 11:03:17* Test Item Value Reference Range Interpretation Comme nts WBC (test code = 6690-2) See_Comment [MapHazardly] The system which generated this result transmitted reference range: 4.20 - 10.70 10*3/?L. The reference range was not used to interpret this result as normal/abnormal. RBC (test code = 789-8) See_Comment L [Automated IM5] The system which generated this result transmitted [...] g/dL 31.2-35.0 H RDW-SD (test code = 72682-0) 41.7 fL 38.5-51.6 RDW-CV (test code = 788-0) 13.2 % 12.1-15.4 PLT (test code = 777-3) See_Comment [Automated IM5] The system which generated this result transmitted reference range: 150 - 328 10*3/?L. The reference range was not used to interpret this result as normal/abnormal. MPV (test code = 54235-9) 11.9 fL 9.8-13.0 NRBC/100 WBC (test code = 1913050605) See_Comment [Automated me ssage] The system which generated this result transmitted reference range: 0.0 - 10.0 /100 WBCs. The reference range was not used to interpret this result as normal/abnormal. NRBC x10^3 (test code = [id number]) See_Comment [Automated messa ge] The system which generated this result transmitted reference range: 10*3/?L. The reference range was not used to interpret this result as normal/abnormal. GRAN MAT (NEUT) % (test code = 770-8) 62.3 % IMM GRAN % (test code = [id number]) 0.20 % LYMPH % (test code = 736-9) 25.7 % MONO % (test code = 5905-5) 8.0 % EOS % (test code = 713-8) 3.4 % BASO % (test code = 706-2) 0.4 % GRAN MAT x10^3(ANC) (test code = [id number]) 5.01 10*3/uL 1.99-6.95 IMM GRAN x10^3 (test code = 5637434226) 0.00-0.06 LYMPH x10^3 (test code = 731-0) 2.07 10*3/uL 1.09-3.23 MONO x10^3 (test code = 742-7) 0.64 10*3/uL 0.36-1.02 EOS x10^3 (test code = 711-2) 0.27 10*3/uL 0.06-0.53 BASO x10^3 (test code = 704-7) 0.03 10*3/uL 0.01-0.09 Lab Interpretation (test code = 46005-1) [facility] [id number] 17:58:42* Test Item Value Reference Range Interpretation Comme nts CK (test code = 7279644163) 180 U/L 33-194 Lab Interpretation (test cod e = 02752-8) [facility] [id number] 11:09:00* Test Item Value Reference Range Interpretation Comments TROPONIN I (test code = 7636560845) 0.001 ng/mL See_Comment [Automated message] The system [...] of biotin. Lab Interpretation (test code = 03133-7) Normal [facility]2022[facility] 10:59:14 SALICYLATE<10mg/L111/01/2021 4:59 AM CSTUT LABORATORY SERVICESTherapeutic Range: ? Analgesic and Antipyretic Use ? 20-100 mg/L ? ? Anti- Inflammatory Use ? 100-250 mg/LToxic Range: ? Greater than 300 mg/LUnFoundation Surgical Hospital [facility] PasoETHANOL2022-12-04 10:59:14ALCOHOL<10mg/dL08/31/2022 4:59 AM CSTUTMB LABORATORY SERVICESToxic Greater than or equal to 80 mg/dL. NOTE: Whole blood values are approximately 10% to 15% lower than serum and plasma.[facility] [id number] 10:59:09* Test Item Value Reference Range Interpretation Comme nts ACETAMINOP (test code = 4495170975) 10.0-30.0 L KACI (test code = KACI) Toxic: Greater mamie n 200 ug/mL @ 4 hour post ingestion or greater than 50 ug/mL @ 12 hour post ingestion Lab Interpretation (test code = 06764-8) Abnormal [facility] HospitalMAGNESIUM2022-12-04 10:58:19* Test Item Value Reference Range Interpretation Comme nts MAGNESIUM (test code = 8744165901) 1.8 mg/dL 1.7-2.4 Lab Interpretation (test cod e = 14903-4) Normal [facility] HospitalCOMP. METABOLIC PANEL (98538)2022-08-31 10:58:18* Test Item Value Reference Range Interpretation Comme nts NA (test code = 3214088072) 141 mmol/L 135-145 K (test code = 7671399890) 4.0 mmol/L 3.5-5.0 CL (test code = 5465293834) 110 mmol/L 98-108 H CO2 TOTAL (test code = 4331223851) 25 mmol/L 23-31 AGAP (test code = 6376876173) 2-16 BUN (test code = 0035056899) 5 mg/dL 7-23 L GLUCOSE (test code = 7377969970) 80 mg/dL 70-110 CREATININE (test code = 2522964258) 0.71 mg/dL 0.60-1.25 TOTAL BILI (test code = 1210130056) 0.5 mg/dL 0.1-1.1 CALCIUM (test code = 4934413852) 7.7 mg/dL 8.6-10.6 L T PROTEIN (test code = 9682919386) 5.2 g/dL 6.3-8.2 L ALBUMIN (test code = 0283608211) 3.3 g/dL 3.5-5.0 L ALK PHOS (test code = 1959965736) 71 U/L 34-122 ALTv (test code = 1742-6) 16 U/L 5-50 AST(SGOT) (test code = 9800729634) 23 U/L 13-40 eGFR (test code = 1630851795) mL/min/1.73m2 KACI (test code = KACI) Association [...] imaging tests). Lab Interpretation (test code = 70343-4) Abnormal [facility] WITH [id number] 09:52:32* Test Item Value Reference Range Interpretation [...] 33.8 g/dL 31.2-35.0 RDW-SD (test code = 21700-4) 41.1 fL 38.5-51.6 RDW-CV (test code = 788-0) 12.9 % 12.1-15.4 PLT (test code = 777-3) See_Comment [Automated message] The system which generated this result transmitted reference range: 150 - 328 10*3/?L. The reference range was not used to interpret this result as normal/abnormal. MPV (test code = 53949-6) 11.1 fL 9.8-13.0 NRBC/100 WBC (test code = 8302539768) See_Comment [Automated message] The system which generated this result transmitted reference range: 0.0 - 10.0 /100 WBCs. The reference range was not used to interpret this result as normal/abnormal. NRBC x10^3 (test code = 2520365413) See_Comment [Automated message] The system which generated this result transmitted reference range: 10*3/?L. The reference range was not used to interpret this result as normal/abnormal. GRAN MAT (NEUT) % (test code = 770-8) 90.1 % IMM GRAN % (test code = 5776578259) 0.40 % LYMPH % (test code = 736-9) 5.4 % MONO % (test code = 5905-5) 3.8 % EOS % (test code = 713-8) 0.1 % BASO % (test code = 706-2) 0.2 % GRAN MAT x10^3(ANC) (test code = 8554600674) 14.75 10*3/uL 1.99-6.95 H IMM GRAN x10^3 (test code = 4683650477) 0.06 10*3/uL 0.00-0.06 LYMPH x10^3 (test code = 731-0) 0.88 10*3/uL 1.09-3.23 L MONO x10^3 (test code = 742-7) 0.62 10*3/uL 0.36-1.02 EOS x10^3 (test code = 711-2) 0.06-0.53 L BASO x10^3 (test code = 704-7) 0.03 10*3/uL 0.01-0.09 Lab Interpretation (test code = 39303-2) [facility]normal [facility] HospitalAC [facility] 20 + Lactic [id number] 09:16:12* Test Item Value Reference Range Interpretation Comme nts PH (test code = 2) 7.35-7.45 PCO2 (test code = 3527382415) See_Comment [Automated messa ge] The system which generated this result transmitted reference range: 35 - 45 mmHg. The reference range was not used to interpret this result as normal/abnormal. PO2 (test code = 3526565363) See_Comment H [Automated messa ge] The system which generated this result transmitted reference range: 80 - 100 mmHg. The reference range was not used to interpret this result as normal/abnormal. HCO3 (test code = 5638658354) See_Comment L [Automated messa ge] The system which generated this result transmitted reference range: 22 - 26 mEq/L. The reference range was not used to interpret this result as normal/abnormal. BE (test code = 7970955071) See_Comment L [Automated messa ge] The system which generated this result transmitted reference range: -3.0 - 3.0 mEq/L. The reference range was not used to interpret this result as normal/abnormal. THB (test code = 7669955967) 13.2 g/dL 13.5-18.0 L %O2HB (test code = 4147476943) 98.8 % 94.0-99.0 %COHB ART (test code = 3975917393) 0.3 % 0.0-1.5 %METHB ART (test code = 9259477371) 0.2 % 0.4-1.5 L VOL%O2 ART (test code = 6492761093) 18.8 % 15.0-23.0 NA (test code = 5211771662) 139 mmol/L 135-145 K+ (test code = 9753686206) 3.9 mmol/L 3.5-5.0 AC CA IONZ (test code = 2513177407) 4.60 mg/dL 4.50-5.30 GLUCOSE (test code = 5527042225) 88 mg/dL 70-110 LACTIC ACID (test code = 0538932756) 1.04 mmol/L 0.50-2.20 Lab Interpretation (test code = 65322-9) Abnormal [facility][H] Drug Screen Urine (9 Drugs)2019-07-20 15:46:01* [...] Negative Urine Propoxyphene Screen (test code = 71010-8) Negative Negative Urine Drug Screen Note (test [...] 50 ng/mLMethadone 300 ng/mLUrine alcohol 20 mg/dL [facility][H] Drug Screen Urine (9 Drugs)2019-02-24 13:44:01* [...] Negative Urine Propoxyphene Screen (test code = 91698-4) Negative Negative Urine Drug Screen Note (test [...] 50 ng/mLMethadone 300 ng/mLUrine alcohol 20 mg/dL [facility] Notes Date/Time Note Provider Source 2024-07-29 [...] steady gait, in no apparent distress. T [facility] 2024-07-29 11:36:32 Pt arrived ambulatory with complaints of L shoulder pain x1 days after wrestling with friends. Pt has slowed speech, denies drug use. Mildred Valverde RN [facility] 2024-06-06 22:16:43 Pt given printed [...] in no apparent distress, Chance Lynn RN [facility] 2024-06-06 19:49:40 Pt arrives in [...] and be checked out. 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 METABOLIC PANEL (26394) - Abnormal NA 138 135 - 145 [...] Procedures CBC WITH DIFF COMP. METABOLIC PANEL (92007) Magnesium Creatine Kinase URINALYSIS URINE DRUG (IMMUNOASSAY) [...] 2 (two) times daily. Prescribed by [facility] psychiatrist , Aldair/Suzanne - Apr 2019 PAROXETINE 20 MG TABLET Take 20 mg by mouth in the morning. START taking Modified Medications as Prescribed No medications on file STOP taking these medications No medications on file Follow-up: Electronically signed by: Trinidad Estrada DO 06/06/242207 T [facility] 2024-06-02 10:37:28 Harpal Avila is a 23 year old male Chief Complaint Patient presents with Physical Fasting Thumb Pain Patient c/o hurt thumb x week says pain is radiating down to wrist and arm Charlene Sol CMA II T [facility]
--- NOTE | 2024-08-03 19:46 | EDPHYS ---
Physician Documentation [facility] Name: Chan Gale Age: 23 yrs Sex: Male : 2000 Arrival Date: 08/03/2024 Time: 19:34 Bed 19 Private MD: ED Physician Ashley Mistry HPI: 08/03 19:43 This 23 yrs old Male presents to ER via EMS with complaints of Altered Mental gb1 Status. Historical: - Allergies: 19:42 No Known Allergies; me1 - PMHx: 19:42 adhd; Anxiety; avoident restrictive food intact disorder; Bipolar disorder; Depression; me1 drug abuse; - PSHx: 19:42 None; me1 - Immunization history:: Adult Immunizations up to date. - Infectious Disease History:: Denies. - Social history:: Smoking status: Patient reports the use of cigarette tobacco products, smokes one pack cigarettes per day. Exam: 19:43 Constitutional: This is a well developed, well nourished patient who is awake, alert, gb1 and in no acute distress. Head/Face: Normocephalic, atraumatic. Eyes: Pupils equal round and reactive to light, extra-ocular motions intact. Lids and lashes normal. Conjunctiva and sclera are non-icteric and not injected. Cornea within normal limits. Periorbital areas with no swelling, redness, or edema. Chest/axilla: Normal chest wall appearance and motion. Nontender with no deformity. No lesions are appreciated. Cardiovascular: Regular rate and rhythm with a normal S1 and S2. No gallops, murmurs, or rubs. Normal PMI, no JVD. No pulse deficits. Respiratory: Lungs have equal breath sounds bilaterally, clear to auscultation and percussion. No rales, rhonchi or wheezes noted. No increased work of breathing, no retractions or nasal flaring. Abdomen/GI: Soft, non-tender, with normal bowel sounds. No distension or tympany. No guarding or rebound. No evidence of tenderness throughout. Skin: Warm, dry with normal turgor. Normal color with no rashes, no lesions, and no evidence of cellulitis. MS/ Extremity: Pulses equal, no cyanosis. Neurovascular intact. Full, normal range of motion. Vital Signs: 19:36 BP 125 / 72; Pulse 76; Resp 16; Temp 98.1; Pulse Ox 98% ; Weight 51.26 kg; Height 5 ft. me1 9 in. ; Pain 0/10; 19:54 BP 125 / 88; Pulse 76; Resp 16; Temp 98.4; Pulse Ox 97% ; me1 19:36 Body Mass Index 16.69 (51.26 kg, 175.26 cm) me1 19:36 Pain Scale: Adult fl1 MDM: 19:42 Medical Screening Exam initiated gb1 19:43 Data reviewed: vital signs, nurses notes. ED course: Male exam here with a request for gb1 a juice or apple juice. Patient was called by the senior living personnel for EMS to come for avoiding his dinner meal. He has a history of avoidant restrictive food intake disorder, bipolar and depression as well as illicit drug abuse. Patient's blood sugar prior to transport was 83. He is well alert at his baseline mental status asking for apple juice. He is stable for discharge back to senior living in police custody.. Administered Medications: No medications were administered Disposition Summary: 08/03/24 19:45 Discharge Ordered Notes: Location: Home gb1 Condition: Stable gb1 Diagnosis - Person with feared health complaint in whom no diagnosis is made gb1 Followup: gb1 - With: Private Physician - When: - Reason: If symptoms return Discharge Instructions: - Discharge Summary Sheet gb1 - Managing Bipolar Disorder gb1 Forms: - Medication Reconciliation Form gb1 - Antibiotic Education gb1 - Prescription Opioid Use gb1 - Patient Portal Instructions gb1 - Leadership Thank You Letter gb1 Signatures: Carri Kuo RN [place] [facility] [place] Mistry MD MD 1
--- NOTE | 2024-08-03 19:46 | ER ---
Nurse's Notes [facility] Name: Chan Gale Age: 23 yrs Sex: Male : 2000 Arrival Date: 08/03/2024 Time: 19:34 Bed 19 Private MD: Diagnosis: Person with feared health complaint in whom no diagnosis is made Presentation: 08/03 19:36 Chief complaint: EMS states: toned out for BGL of 83. Patient reports he has been me1 confused. [facility] at the [facility]. Patient is in custody with [facility] [employer] officer at bedside. Coronavirus screen: Vaccine status: Patient reports being unvaccinated. Ebola Screen: No symptoms or risks identified at this time. Initial Sepsis Screen: Does the patient meet any 2 criteria? No. Patient's initial sepsis screen is negative. Does the patient have a suspected source of infection? No. Patient's initial sepsis screen is negative. Risk Assessment: Do you want to hurt yourself or someone else? Patient reports no desire to harm self or others. Onset of symptoms was August 03, 2024. Care prior to arrival: Glucose check: 83. 19:36 Method Of Arrival: EMS: [facility] [place] 19:36 Acuity: SIRISHA 5 me1 Triage Assessment: 19:42 General: Appears in no apparent distress. comfortable, Behavior is calm, cooperative, me1 appropriate for age, Reports "dont feel good.". Pain: Denies pain. EENT: Eyes bruising to bilateral eyes. Neuro: Level of Consciousness is awake, alert, obeys commands, Oriented to person, place, time, situation, Appropriate for age. Cardiovascular: Patient's skin is warm and dry. Respiratory: Airway is patent Respiratory effort is even, unlabored, Respiratory pattern is regular, symmetrical. GI: No signs and/or symptoms were reported involving the gastrointestinal system. : No signs and/or symptoms were reported regarding the genitourinary system. Derm: Skin is intact, is healthy with good turgor, Skin is pink, warm \\T\\ dry. Musculoskeletal: No signs and/or symptoms reported regarding the musculoskeletal system. Historical: - Allergies: 19:42 No Known Allergies; me1 - PMHx: 19:42 adhd; Anxiety; avoident restrictive food intact disorder; Bipolar disorder; Depression; me1 drug abuse; - PSHx: 19:42 None; me1 - Immunization history:: Adult Immunizations up to date. - Infectious Disease History:: Denies. - Social history:: Smoking status: Patient reports the use of cigarette tobacco products, smokes one pack cigarettes per day. Screenin:44 [facility] ED Fall Risk Assessment (Adult) History of falling in the last 3 months, me1 including since admission No falls in past 3 months (0 pts) Confusion or Disorientation No (0 pts) Intoxicated or Sedated No (0 pts) Impaired Gait No (0 pts) Mobility Assist Device Used No (0 pt) Altered Elimination No (0 pt) Score/Fall Risk Level 0 - 2 = Low Risk Maintained a safe environment, Provided non-skid footwear, Hourly rounding (assess needs \\T\\ fall precautionary measures) done. Abuse screen: Denies threats or abuse. Nutritional screening: No deficits noted. Tuberculosis screening: No symptoms or risk factors identified. Assessment: 19:44 General: See triage assessment. . me1 19:54 General: Gave patient apple juice and peanut butter and crackers per his request me1 because he wont he whats at the [facility] to keep his blood sugar up.. Vital Signs: 19:36 BP 125 / 72; Pulse 76; Resp 16; Temp 98.1; Pulse Ox 98% ; Weight 51.26 kg; Height 5 ft. me1 9 in. ; Pain 0/10; 19:54 BP 125 / 88; Pulse 76; Resp 16; Temp 98.4; Pulse Ox 97% ; me1 19:36 Body Mass Index 16.69 (51.26 kg, 175.26 cm) me1 19:36 Pain Scale: Adult ri1 ED Course: 19:36 Patient arrived in ED. me1 19:37 Ashley Mistry MD is Attending Physician. gb1 19:42 Triage completed. me1 19:42 Arm band placed on Patient placed in an exam room. me1 19:44 Patient has correct armband on for positive identification. Bed in low position. Call me1 light in reach. Side rails up X2. Provided Education on: POC. Verbalized understanding.. Client placed on continuous cardiac and pulse oximetry monitoring. NIBP monitoring applied. Pulse ox on. NIBP on. 19:44 No provider procedures requiring assistance completed. me1 19:53 Eddleman, Carri, RN is Primary Nurse. me1 19:53 Patient did not have IV access during this emergency room visit. me1 Administered Medications: No medications were administered Medication: 19:44 VIS not applicable for this client. me1 Outcome: 19:45 Discharge ordered by . gb1 19:53 Discharged to Law Enforcement me1 19:53 Condition: stable 19:53 Discharge instructions given to patient, police, Instructed on discharge instructions, follow up and referral plans. Demonstrated understanding of instructions, follow-up care, 20:06 Patient left the ED. me1 Signatures: Carri Kuo, JASON RN me1 Ashley Mistry MD MD gb1
[2024-08-03 20:29] VITALS: BP 125/88; TEMP 98.4; O2SAT 97
== END 2024-08-03 20:06 | disposition home or self-care (01) ==
LOC: ER 19:34
DX: Z71.1 Person with feared health complaint in whom no diagnosis is made (principal)

== ENCOUNTER 2024-09-04 19:12 | Emergency (ER) | payer OTHER ==
--- OUTSIDE RECORDS SUMMARY | 2024-09-04 19:17 | XMS REPORT | Continuity of Care Document ---
Author Name Unknown Address [address] [facility] [address] [place] [address] [facility] Address [address] [facility] [place] [address] Care Team Providers Care Manager Strategic Development Name Role Phone KENYA FUENTES Primary Care Physician Unavailab NICK Montes Attending Clinician Unavailable DONTA DELUNA Attending Clinician Unavailable Donta Cope Attending Clinician [phone] VERNON SAMANIEGO Attending Clinician UnavailIHSAN Pineda Attending Clinician UnavailTRINIDAD Tan Attending Clinician Unavailab TRINIDAD Ponce Attending Clinician UnavailTrinidad Sandhu DO Attending Clinician [phone] Attending Clinician Unavailable ALLEN CANNON Attending Clinician Unavailable KENYA FUENTES Attending Clinician Unavailable DONTA HAYNES Attending Clinician UnavailDonta Raphael MD Attending Clinician [phone] CRISTINA AZUL Attending Clinician UnavailKenya Lazcano Attending Clinician [phone] Doctor Unassigned, Shidler Attending Clinician U Marilu Bingham LVN Attending Clinician [phone] MICHAEL COWAN Attending Clinician Unavailable Luci SHAH, Campbell Quesada Attending Clinician [phone] Ayaan Yung DO Attending Clinician [phone] Andriy Michael VARGAS Attending Clinician [phone] Oxana PALACIOS, Kim Alicea Attending Clinician KIM PATEL Attending Clinician JAZMYN Marie M.D. Attending Clinician UnavailCHANCE Lima APRN Attending Clinician Un available DONTA DELUNA Admitting Clinician Unavailable KENYA FUENTES Admitting Clinician Unavailable CAMPBELL GUERRERO Admitting Clinician Unava ilable Aga Ayaan VARGAS Admitting Clinician [phone] Payers Payer Name Policy Type Policy Number Effective Date Expirati on Date Source [facility] LAURENCE TAMAYO COPAY FOCUS 9 [id number] 2023 00:00:00 [facility] [id number] 2023 00:00:00 [facility] [id number] 2018 00:00:00 Problems Condition Name Condition Details Condition Category Status Onset Date Resolution Date Last Treatment Date Treating Clinician Comments Source Need for hepatitis C screening test Need for hepatitis C screening test Disease Active 10-20 00:00: 00 [facility] Low bone density for age Low bone density for age Disease Active 10-20 00:00: 00 [facility] Encounter to establish care Encounter to establish care Disease Active 2021-09 00:00: 00 [facility] RLS (restless legs syndrome) RLS (restless legs syndrome) Disease Active 2021-09 00:00: 00 [facility] BMI less than 19,adult BMI less than 19,adult Disease Active 2021-09 00:00: 00 [facility] Encounter to establish care Encounter to establish care Disease Active 2021-09 00:00: 00 [facility] Drug overdose of undetermin ed intent, initial encounter Drug overdose of undetermin ed intent, initial encounter Disease Active 2021-09 00:00: 00 [facility] Bipolar 1 disorder, mixed anxiety-de pression, moderate Bipolar 1 disorder, mixed anxiety-de pression, moderate Disease Recurre nce 02-23 00:00: 00 [facility] Anxiety Anxiety Disease Active 02-23 00:00: 00 [facility] Underweigh t in childhood with BMI < 5th percentile Underweigh t in childhood with BMI < 5th percentile Disease Active 2017-09 00:00: 00 [facility] 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 Disease Active 04-19 00:00: 00 [facility] 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 Disease Active 04-19 00:00: 00 [facility] Nicotine abuse Nicotine abuse Disease Active 01-10 00:00: 00 [facility] Marijuana abuse, continuous Marijuana abuse, continuous Disease Active 01-10 00:00: 00 [facility] Attention deficit hyperactiv ity disorder (ADHD) Attention deficit hyperactiv ity disorder (ADHD) Disease Recurre nce 2006-09 00:00: 00 [facility] Major depressive disorder with current active [...] 2017-09 00:00: 00 2019-08-18 00:00:00 2019-08-18 10:02:15 [facility] Bipolar 2 disorder, major depressive episode Bipolar 2 disorder, major depressive episode Disease Resolve d 2017-09 00:00: 00 2019-02-23 00:00:00 2019-02-23 15:24:57 [facility] Episode of recurrent major depressive disorder Episode of recurrent major depressive disorder Disease Resolve d 04-19 00:00: 00 2019-02-23 00:00:00 2019-02-23 15:25:05 [facility] Esophageal reflux Esophageal reflux Disease Resolve d 2008-09 00:00: 00 2016-06-15 00:00:00 2016-06-15 20:21:02 [facility] SENSORY DISORDER SENSORY DISORDER Disease Resolve d 2006-09 00:00: 00 2016-06-15 00:00:00 2016-06-15 20:21:09 [facility] Bipolar disorder Bipolar disorder Disease Resolve d 2006-09 00:00: 00 2009-06-29 00:00:00 2022-04-13 00:12:08 [facility] Nonorganic enuresis Nonorganic enuresis Disease Resolve d 2006-09 00:00: 00 2009-05-18 00:00:00 2009-05-18 17:51:16 [facility] ASPERGER - continue to evaluate for ASPERGER - continue to evaluate for Disease Resolve d 2006-09 00:00: 00 2007-10-20 00:00:00 2007-10-20 16:52:33 [facility] Allergies, Adverse Reactions, Alerts Allergy Name Allergy Type Status Severity Reaction(s) Onset Date Inactive Date Treating Clinician Comments Source NO KNOWN ALLERGIE S Drug Class Active [facility] Social History Social Habit Start Date Stop Date Quantity Comments [facility] intake 2024-07-29 00:00:00 2024-07-29 00:00:00 Current non-drinker of alcohol (finding) [facility] Exposure to SARS-CoV-2 (event) 2022-11-18 00:00:00 2022-11-28 11:48:00 Not sure [facility] Alcohol intake 2022-10-20 00:00:00 2022-10-20 00:00:00 Current non-drinker of alcohol (finding) [facility] Tobacco Comment 2022-09-05 00:00:00 2022-09-05 00:00:00 Vapes [facility] Tobacco use and exposure 2022-09-05 00:00:00 2022-09-05 00:00:00 Smokeless tobacco non-user [facility] Cigarettes smoked current (pack per day) - Reported 2022-09-05 00:00:00 2022-09-05 00:00:00 [facility] History of Social function 2019-04-07 00:00:00 2019-04-07 00:00:00 [facility] History of tobacco use 2018-07-08 00:00:00 Cigarette Smoker [facility] Sex assigned at 2002 00:00:00 2000 00:00:00 Whitney Gomes - External Smoking Status Start Date Stop Date Source Never smoked tobacco (finding) [facility] Tobacco smoking consumption unknown Whitney Negrete Smokes tobacco daily 2022-09-05 00:00:00 [facility] Ex-smoker 2022-09-01 00:00:00 2022-09-01 00:00:00 [facility] Medications Ordered Medication Name Filled Medication Name Start Date Stop Date Current Medication? Ordering Clinician Indication Dosage Frequency Signature (SIG) Comments Components Source ketorolac (TORADOL) injection 60 mg 2023-09 17:30: 00 07-29 17:31 :00 No 60mg 60 mg, Intramuscu lar, ONCE, 1 dose, On Thu07/29/24 at 1230, Routine [facility] gabapentin 100 mg capsule 2023-09 00:00: 00 08-04 05:59 :00 Yes [id number] 100mg Take 1 capsule by mouth in the morning and 1 capsule at noon and 1 capsule in the evening. Do all this for 5 days. [facility] NaCl 0.9% (NS) bolus infusion 2,000 mL 06-07 02:00: 00 06-07 03:10 :00 No 2000mL at 999 mL/hr, 2,000 mL, IV Infusion, ONCE, 1 dose, On Thu06/06/24 at 2100, MARIBEL [facility] hydrOXYzine (ATARAX) tablet 25 mg 06-07 01:45: 00 06-07 02:06 :00 No 25mg 25 mg, Oral, ONCE, 1 dose, On Thu06/06/24 at 2045, MARIBEL [facility] ondansetron (ZOFRAN) 4 mg tablet 12-02 00:00: 00 12-13 04:59 :00 No [id number] 4mg Take 1 tablet by mouth every 8 (eight) hours as needed for Nausea and Vomiting (N/V) for up to 10 days. [facility] OXcarbazepi ne 600 mg tablet 2021-09 14:31: 18 09-05 00:00 :00 No 600mg Take 600 mg by mouth 2 (two) times daily. [facility] LORazepam 1 mg Cp24 2021-09 14:27: 07 09-05 00:00 :00 No 1mg Take 1 mg by mouth 2 (two) times daily. [facility] olanzapine (ZYPREXA ORAL) 2021-09 14:26: 27 Yes Take by mouth 2 (two) times daily. [facility] gabapentin 600 mg tablet 2021-09 14:26: 27 Yes 600mg Take 600 mg by mouth in the morning and 600 mg at noon and 600 mg in the evening. [facility] SERTraline 100 mg tablet 2021-09 14:19: 22 09-05 00:00 :00 No 100mg Take 100 mg by mouth daily. [facility] nicotine (NICODERM) 21 mg/24 hr patch 1 Patch 2021-09 19:45: 00 Yes 1{patch } 1 Patch, Topical, Administer over 24 Hours, Q24H, First dose on Thu09/02/22 at 1345, Until Discontinu ed, Routine [facility] hydrOXYzine (ATARAX) tablet 10 mg 2021-09 19:30: 00 09-02 18:49 :00 No 10mg 10 mg, Oral, ONCE, 1 dose, On Thu09/02/22 at 1330, Routine [facility] gabapentin 600 mg tablet 2021-09 17:34: 50 Yes 600mg Take 600 mg by mouth in the morning and 600 mg at noon and 600 mg in the evening. [facility] OXcarbazepi ne 600 mg tablet 2021-09 15:34: 48 Yes 600mg Take 600 mg by mouth 2 (two) times daily. [facility] SERTraline 100 mg tablet 2021-09 15:34: 48 Yes 100mg Take 100 mg by mouth daily. [facility] olanzapine (ZYPREXA ORAL) 2021-09 15:34: 48 Yes Take by mouth 2 (two) times daily. [facility] LORazepam 1 mg Cp24 2021-09 15:34: 48 Yes 1mg Take 1 mg by mouth 2 (two) times daily. [facility] gabapentin 600 mg tablet 2021-09 15:34: 48 Yes 600mg Take 600 mg by mouth in the morning and 600 mg at noon and 600 mg in the evening. [facility] LORazepam (ATIVAN) tablet 1 mg 2021-09 15:00: 00 Yes 1mg 1 mg, Oral, QAM, First dose on Thu09/02/22 at 0900, Until Discontinu ed, Routine [facility] OLANZapine (ZyPREXA) tablet 15 mg 2021-09 03:00: 00 Yes 15mg 15 mg, Oral, QHS, First dose on Thu09/01/22 at 2100, Until Discontinu ed, Routine [facility] PARoxetine (PAXIL) tablet 20 mg 2021-09 03:00: 00 Yes 20mg 20 mg, Oral, QHS, First dose on Thu09/01/22 at 2100, Until Discontinu ed, Routine [facility] gabapentin (NEURONTIN) tablet 600 mg 2021-09 02:00: 00 Yes 600mg 600 mg, Oral, TID, First dose on Thu09/01/22 at 2000, Until Discontinu ed, [facility] ([facility]OL) tablet 325 mg 2021-09 23:49: 00 09-02 00:20 :00 No 325mg 325 mg, Oral, ONCE, 1 dose, On Thu09/01/22 at 1800, [facility] clonazePAM (KLONOPIN) tablet 1 mg 2021-09 16:15: 00 Yes 1mg 1 mg, Oral, Q8H, First dose (after last modificati on) on Thu09/01/22 at 1015, Until Discontinu ed, Routine [facility] ketamine (KETALAR) injection 50 mg 2021-09 23:30: 00 08-31 07:04 :00 No 50mg 50 mg, Slow IV Push, ONCE, 1 dose, On Thu08/31/22 at 1730, Routine [facility] clonazePAM 0.1 mg/mL oral suspension 1 mg 2021-09 20:00: 00 09-01 14:29 :11 No 1mg 1 mg, Oral, TID, First dose on Thu08/31/22 at 1400, Until Discontinu ed, Routine [facility] midazolam (VERSED) STD 50mg in NaCl [...] at maximum allowed dose, contact prescriber .
[facility] enoxaparin (LOVENOX) injection 40 mg 2021-09 15:00: 00 Yes 40mg 40 mg, Subcutaneo us, DAILY, First dose on Thu08/31/22 at 0900, Until Discontinu ed, Routine [facility] dexMEDEtomi dine 200 mcg in 0.9 % NaCl 50 mL (PRECEDEX) RTU IV infusion 2021-09 14:33: 19 09-02 00:39 :35 No .2ug/kg /h 0.2-1.5 mcg/kg/hr ?61 kg (3.05-22.8 75 mL/hr, rounded to 3.05-22.88 mL/hr), IV Infusion, TITRATE, Sedation-R ASS score (0 to -1), Starting on [place] 08/31/22 at 0833
In itiate infusion at 0.2 mcg/kg/hr and titrate by 0.1 mcg/kg/hr every 30 minutes to goal sedation score. Maximum dose = 1.5 mcg/kg/hr. If goal not maintained at maximum allowed dose, contact prescriber .
[facility] fentaNYL PF (SUBLIMAZE) STD 2,500 mcg in NaCl 0.9% (NS) 250 mL infusion RTU 2021-09 08:03: 47 09-01 11:18 :51 No 25ug/h 25-200 mcg/hr (2.5-20 mL/hr), IV Infusion, TITRATE, CPOT/Pain Scale Goals Determined by Provider, Starting on [place] 08/31/22 at 0203
In itiate infusion at 25 mcg/hr. Titrate by 25 mcg/hr every 1 minute to 15 minutes to identified goal pain and/or sedation scores. Maximum dose = 200 mcg/hr. If goal not maintained at maximum allowed dose, contact prescriber .
[facility] FENTanyl PF (SUBLIMAZE (PF)) injection 50 mcg 2021-09 08:00: 00 08-31 07:14 :00 No 50ug 50 mcg, Slow IV Push, ONCE, 1 dose, On [place] 08/31/22 at 0200, Routine [facility] propofoL IV infusion 2021-09 07:24: [...] vials should be discarded after 12 hours.
[facility] lactated ringers IV infusion 1,000 mL 2021-09 07:15: 00 08-31 07:00 :00 No 1000mL at 999 mL/hr, 1,000 mL, Intravenou s, ONCE, 1 dose, On [place] 08/31/22 at 0115, Routine [facility] midazolam (VERSED) STD 50mg in [...] at maximum allowed dose, contact prescriber .
[facility] gabapentin 300 mg/6 mL (6 mL) solution 2021-09 23:09: 11 08-30 00:00 :00 No Take by mouth 2 (two) times daily. prescribed at [facility] no summer 2018 [facility] PARoxetine 20 mg tablet 2021-09 00:00: 00 Yes 20mg Take 20 mg by mouth in the morning. [facility] LORazepam 1 mg tablet 2021-09 00:00: 00 Yes 1mg Take 1 mg by mouth in the morning. [facility] SERTraline 100 mg tablet 10-22 18:52: 12 Yes 100mg Take 100 mg by mouth daily. Prescribed by [facility] - Apr 2019 [facility] olanzapine (ZYPREXA ORAL) 10-22 18:52: 09 Yes Take by mouth 2 (two) times daily. Prescribed by [facility] Apr 2019 [facility] gabapentin 300 mg/6 mL (6 mL) solution 10-22 18:52: 07 Yes Take by mouth 2 (two) times daily. prescribed at [facility] no summer 2018 [facility] OXcarbazepi ne (TRILEPTAL) 600 mg tablet 10-22 18:52: 06 Yes 600mg Take 600 mg by mouth 2 (two) times daily. [facility] Sertraline HCl - 50 MG [...] (1) TABLET(S) BY MOUTH TWICE A DAY. [facility] busPIRone 15 mg tablet 03-03 00:00: 00 Yes [id number] 15mg Take 1 tablet by mouth 2 (two) times daily. [facility] DULoxetine 60 mg capsule 03-01 00:00: 00 Yes [id number] 60mg Take 1 capsule by mouth daily. [facility] DULoxetine 30 mg capsule 03-01 00:00: 00 Yes [id number] 30mg Take 1 capsule by mouth daily. [facility] OXcarbazepi ne (TRILEPTAL) 600 mg tablet 02-23 19:48: 44 Yes 600mg Take 600 mg by mouth 2 (two) times daily. [facility] traZODONE 50 mg tablet 02-23 00:00: 00 Yes [id number] 25mg Take 0.5 tablets by mouth 2 (two) times daily. [facility] Multi-Vitam in TABS Multi-Vitam in TABS Yes M.A. [facility] Immun[facility] Ordered Immunization Name Filled Immunization Name Date Status Comments Source Gardasil 9 Intramuscular Suspension 2018-05-25 00:00:00 Completed [facility] Meningococcal, MCV4, unspecified conjugate formulation(groups A, C, Y and W-135) 2018-05-25 00:00:00 Completed [facility] Boostrix 5-2.5-18.5 Intramuscular Suspension 2018-05-21 00:00:00 Completed [facility] influenza virus vaccine, unspecified formulation 2017-09-03 00:00:00 Completed [facility] influenza virus vaccine, unspecified formulation 2016-07-01 00:00:00 Completed [facility] FluMist Quadrivalent Nasal Suspension 2015-08-06 00:00:00 Completed [facility] Boostrix 5-2.5-18.5 Intramuscular Suspension 2014-12-28 00:00:00 Completed [facility] Meningococcal, MCV4, unspecified conjugate formulation(groups A, C, Y and W-135) 2014-12-28 00:00:00 Completed [facility] influenza virus vaccine, unspecified formulation 2014-06-23 00:00:00 Completed [facility] Gardasil Intramuscular Suspension 2014-05-25 00:00:00 Completed [facility] Boostrix 5-2.5-18.5 Intramuscular Suspension 2014-05-25 00:00:00 Completed [facility] Meningococcal, MCV4, unspecified conjugate formulation(groups A, C, Y and W-135) 2014-05-25 00:00:00 Completed [facility] TDAP 2014-05-25 00:00:00 Completed [facility] Meningococcal Polysaccharide (groups A, C, Y and W-135) conjugate vaccine (MCV4P) 2014-05-25 00:00:00 Completed [facility] HPV 2014-05-25 00:00:00 Completed [facility] TDAP 2014-05-25 00:00:00 Completed [facility] Meningococcal Polysaccharide (groups A, C, Y and W-135) conjugate vaccine (MCV4P) 2014-05-25 00:00:00 Completed [facility] HPV 2014-05-25 00:00:00 Completed [facility] TDAP 2014-05-25 00:00:00 Completed [facility] Meningococcal Polysaccharide (groups A, C, Y and W-135) conjugate vaccine (MCV4P) 2014-05-25 00:00:00 Completed [facility] HPV 2014-05-25 00:00:00 Completed [facility] TDAP 2014-05-25 00:00:00 Completed [facility] Meningococcal Polysaccharide (groups A, C, Y and W-135) conjugate vaccine (MCV4P) 2014-05-25 00:00:00 Completed [facility] HPV 2014-05-25 00:00:00 Completed [facility] TDAP 2014-05-25 00:00:00 Completed [facility] Meningococcal Polysaccharide (groups A, C, Y and W-135) conjugate vaccine (MCV4P) 2014-05-25 00:00:00 Completed [facility] Tdap 2014-05-25 00:00:00 Completed [facility] HPV 2014-05-25 00:00:00 Completed [facility] Meningococcal Polysaccharide (groups A, C, Y and W-135) conjugate vaccine (MCV4P) 2014-05-25 00:00:00 Completed [facility] HPV 2014-05-25 00:00:00 Completed [facility] TDAP 2014-05-25 00:00:00 Completed [facility] Meningococcal Polysaccharide (groups A, C, Y and W-135) conjugate vaccine (MCV4P) 2014-05-25 00:00:00 Completed [facility] HPV 2014-05-25 00:00:00 Completed [facility] TDAP 2014-05-25 00:00:00 Completed [facility] Meningococcal Polysaccharide (groups A, C, Y and W-135) conjugate vaccine (MCV4P) 2014-05-25 00:00:00 Completed [facility] HPV 2014-05-25 00:00:00 Completed [facility] TDAP 2014-05-25 00:00:00 Completed [facility] Meningococcal Polysaccharide (groups A, C, Y and W-135) conjugate vaccine (MCV4P) 2014-05-25 00:00:00 Completed [facility] HPV 2014-05-25 00:00:00 Completed [facility] TDAP 2014-05-25 00:00:00 Completed [facility] Meningococcal Polysaccharide (groups A, C, Y and W-135) conjugate vaccine (MCV4P) 2014-05-25 00:00:00 Completed [facility] HPV 2014-05-25 00:00:00 Completed [facility] TDAP 2014-05-25 00:00:00 Completed [facility] Meningococcal Polysaccharide (groups A, C, Y and W-135) conjugate vaccine (MCV4P) 2014-05-25 00:00:00 Completed [facility] HPV 2014-05-25 00:00:00 Completed [facility] Tdap 2014-05-25 00:00:00 Completed [facility] TDAP 2014-05-25 00:00:00 Completed [facility] Meningococcal Polysaccharide (groups A, C, Y and W-135) conjugate vaccine (MCV4P) 2014-05-25 00:00:00 Completed [facility] HPV 2014-05-25 00:00:00 Completed [facility] Meningococcal Polysaccharide (groups A, C, Y and W-135) conjugate vaccine (MCV4P) 2014-05-25 00:00:00 Completed [facility] HPV 2014-05-25 00:00:00 Completed [facility] TDAP 2014-05-25 00:00:00 Completed [facility] Meningococcal Polysaccharide (groups A, C, Y and W-135) conjugate vaccine (MCV4P) 2014-05-25 00:00:00 Completed [facility] HPV 2014-05-25 00:00:00 Completed [facility] TDAP 2014-05-25 00:00:00 Completed [facility] Meningococcal Polysaccharide (groups A, C, Y and W-135) conjugate vaccine (MCV4P) 2014-05-25 00:00:00 Completed [facility] HPV 2014-05-25 00:00:00 Completed [facility] TDAP 2014-05-25 00:00:00 Completed [facility] Meningococcal Polysaccharide (groups A, C, Y and W-135) conjugate vaccine (MCV4P) 2014-05-25 00:00:00 Completed [facility] HPV 2014-05-25 00:00:00 Completed [facility] TDAP 2014-05-25 00:00:00 Completed [facility] Meningococcal Polysaccharide (groups A, C, Y and W-135) conjugate vaccine (MCV4P) 2014-05-25 00:00:00 Completed HPV 2014-05-25 00:00:00 Completed TDAP 2014-05-25 00:00:00 Completed [facility] Meningococcal Polysaccharide (groups A, C, Y and W-135) conjugate vaccine (MCV4P) 2014-05-25 00:00:00 Completed [facility] HPV 2014-05-25 00:00:00 Completed [facility] influenza virus vaccine, unspecified formulation 2009-08-09 00:00:00 Completed [facility] H1n1 Vaccine 2009-08-09 00:00:00 Completed [facility] Influenza Virus Vaccine 2009-08-09 00:00:00 Completed [facility] H1n1 Vaccine 2009-08-09 00:00:00 Completed [facility] Influenza Virus Vaccine 2009-08-09 00:00:00 Completed [facility] H1n1 Vaccine 2009-08-09 00:00:00 Completed [facility] Influenza Virus Vaccine 2009-08-09 00:00:00 Completed [facility] H1n1 Vaccine 2009-08-09 00:00:00 Completed [facility] Influenza Virus Vaccine 2009-08-09 00:00:00 Completed [facility] H1n1 Vaccine 2009-08-09 00:00:00 Completed [facility] Influenza Virus Vaccine 2009-08-09 00:00:00 Completed [facility] H1n1 Vaccine 2009-08-09 00:00:00 Completed [facility] Influenza Virus Vaccine 2009-08-09 00:00:00 Completed [facility] H1n1 Vaccine 2009-08-09 00:00:00 Completed [facility] Influenza Virus Vaccine 2009-08-09 00:00:00 Completed [facility] H1n1 Vaccine 2009-08-09 00:00:00 Completed [facility] Influenza Virus Vaccine 2009-08-09 00:00:00 Completed [facility] H1n1 Vaccine 2009-08-09 00:00:00 Completed [facility] Influenza Virus Vaccine 2009-08-09 00:00:00 Completed [facility] H1n1 Vaccine 2009-08-09 00:00:00 Completed [facility] Influenza Virus Vaccine 2009-08-09 00:00:00 Completed [facility] H1n1 Vaccine 2009-08-09 00:00:00 Completed [facility] Influenza Virus Vaccine 2009-08-09 00:00:00 Completed [facility] H1n1 Vaccine 2009-08-09 00:00:00 Completed [facility] Influenza Virus Vaccine 2009-08-09 00:00:00 Completed [facility] H1n1 Vaccine 2009-08-09 00:00:00 Completed [facility] Influenza Virus Vaccine 2009-08-09 00:00:00 Completed [facility] H1n1 Vaccine 2009-08-09 00:00:00 Completed [facility] Influenza Virus Vaccine 2009-08-09 00:00:00 Completed [facility] H1n1 Vaccine 2009-08-09 00:00:00 Completed [facility] Influenza Virus Vaccine 2009-08-09 00:00:00 Completed [facility] H1n1 Vaccine 2009-08-09 00:00:00 Completed [facility] Influenza Virus Vaccine 2009-08-09 00:00:00 Completed [facility] H1n1 Vaccine 2009-08-09 00:00:00 Completed Influenza Virus Vaccine 2009-08-09 00:00:00 Completed H1n1 Vaccine 2009-08-09 00:00:00 Completed [facility] Influenza Virus Vaccine 2009-08-09 00:00:00 Completed [facility] influenza virus vaccine, unspecified formulation 2009-07-04 00:00:00 Completed [facility] Influenza Virus Vaccine 2009-07-04 00:00:00 Completed [facility] Influenza Virus Vaccine 2009-07-04 00:00:00 Completed [facility] Influenza Virus Vaccine 2009-07-04 00:00:00 Completed [facility] Influenza Virus Vaccine 2009-07-04 00:00:00 Completed [facility] Influenza Virus Vaccine 2009-07-04 00:00:00 Completed [facility] Influenza Virus Vaccine 2009-07-04 00:00:00 Completed [facility] Influenza Virus Vaccine 2009-07-04 00:00:00 Completed [facility] Influenza Virus Vaccine 2009-07-04 00:00:00 Completed [facility] Influenza Virus Vaccine 2009-07-04 00:00:00 Completed [facility] Influenza Virus Vaccine 2009-07-04 00:00:00 Completed [facility] Influenza Virus Vaccine 2009-07-04 00:00:00 Completed [facility] Influenza Virus Vaccine 2009-07-04 00:00:00 Completed [facility] Influenza Virus Vaccine 2009-07-04 00:00:00 Completed [facility] Influenza Virus Vaccine 2009-07-04 00:00:00 Completed [facility] Influenza Virus Vaccine 2009-07-04 00:00:00 Completed [facility] Influenza Virus Vaccine 2009-07-04 00:00:00 Completed [facility] Influenza Virus Vaccine 2009-07-04 00:00:00 Completed [facility] Influenza Virus Vaccine 2009-07-04 00:00:00 Completed [facility] hepatitis A vaccine, pediatric/adolescent dosage, 2 [...] [facility] Influenza Virus Vaccine Unknown Completed [facility] H1n1 Vaccine Unknown Completed [facility] TDAP Unknown Completed [facility] Meningococcal Polysaccharide (groups A, C, Y and W-135) conjugate vaccine (MCV4P) Unknown Completed [facility] HPV Unknown Completed [facility] Vital Signs Vital Name Observation Time Observation Value Comments S arielle Systolic blood pressure 2024-07-29 19:40:00 116 mm[Hg] [facility] Diastolic blood pressure 2024-07-29 19:40:00 78 mm[Hg] [facility] Heart rate 2024-07-29 19:40:00 93 /min [facility] Respiratory rate 2024-07-29 19:40:00 16 /min [facility] Oxygen saturation in Arterial blood by Pulse oximetry 2024-07-29 19:40:00 98 /min [facility] Body temperature 2024-07-29 16:40:00 36.39 Jeana [facility] Body height 2024-07-29 16:40:00 172.7 cm [facility] Body weight 2024-07-29 16:40:00 49.896 kg [facility] BMI 2024-07-29 16:40:00 16.73 kg/m2 [facility] Systolic blood pressure 2024-06-07 03:00:00 73 mm[Hg] [facility] Diastolic blood pressure 2024-06-07 03:00:00 64 mm[Hg] [facility] Body temperature 2024-06-07 03:00:00 36.61 Jeana [facility] Respiratory rate 2024-06-07 03:00:00 25 /min [facility] Oxygen saturation in Arterial blood by Pulse oximetry 2024-06-07 03:00:00 98 /min [facility] Heart rate 2024-06-07 00:52:00 67 /min [facility] Body height 2024-06-07 00:52:00 172.7 cm [facility] Body weight 2024-06-07 00:52:00 51.256 kg [facility] BMI 2024-06-07 00:52:00 17.18 kg/m2 [facility] Systolic blood pressure 2024-06-02 15:36:00 116 mm[Hg] [facility] Negrete Diastolic blood pressure 2024-06-02 15:36:00 68 mm[Hg] [...] Systolic blood pressure 2022-11-28 17:50:00 104 mm[Hg] [facility] Diastolic blood pressure 2022-11-28 17:50:00 52 mm[Hg] [facility] Heart rate 2022-11-28 17:50:00 106 /min [facility] Body height 2022-11-28 17:50:00 172.7 cm [facility] Body weight 2022-11-28 17:50:00 62.551 kg [facility] BMI 2022-11-28 17:50:00 20.97 kg/m2 [facility] Oxygen saturation in Arterial blood by Pulse oximetry 2022-11-28 17:50:00 93 /min [facility] Systolic blood pressure 2022-10-20 14:09:00 108 mm[Hg] [facility] Diastolic blood pressure 2022-10-20 14:09:00 65 mm[Hg] [facility] Heart rate 2022-10-20 14:09:00 95 /min [facility] Body temperature 2022-10-20 14:09:00 37.06 Jeana [facility] Body height 2022-10-20 14:09:00 172.7 cm [facility] Body weight 2022-10-20 14:09:00 58.968 kg [facility] BMI 2022-10-20 14:09:00 19.77 kg/m2 [facility] Oxygen saturation in Arterial blood by Pulse oximetry 2022-10-20 14:09:00 98 /min [facility] Systolic blood pressure 2022-09-05 20:22:00 101 mm[Hg] [facility] Diastolic blood pressure 2022-09-05 20:22:00 64 mm[Hg] [facility] Heart rate 2022-09-05 20:22:00 62 /min [facility] Body temperature 2022-09-05 20:22:00 36.33 Jeana [facility] Body height 2022-09-05 20:22:00 172.7 cm [facility] Body weight 2022-09-05 20:22:00 56.337 kg [facility] BMI 2022-09-05 20:22:00 18.88 kg/m2 [facility] Oxygen saturation in Arterial blood by Pulse oximetry 2022-09-05 20:22:00 97 /min [facility] Systolic blood pressure 2022-09-03 05:40:00 110 mm[Hg] [facility] Diastolic blood pressure 2022-09-03 05:40:00 81 mm[Hg] [facility] Heart rate 2022-09-03 05:40:00 64 /min [facility] Body temperature 2022-09-03 05:40:00 37.22 Jeana [facility] Respiratory rate 2022-09-03 05:40:00 18 /min [facility] Body height 2022-09-03 05:40:00 172.7 cm [facility] Body weight 2022-09-03 05:40:00 57.153 kg [facility] BMI 2022-09-03 05:40:00 19.16 kg/m2 [facility] Oxygen saturation in Arterial blood by Pulse oximetry 2022-09-03 05:40:00 100 /min [facility] Systolic blood pressure 2022-09-02 17:17:00 114 mm[Hg] [facility] Diastolic blood pressure 2022-09-02 17:17:00 75 mm[Hg] [facility] Heart rate 2022-09-02 17:17:00 81 /min [facility] Body temperature 2022-09-02 17:17:00 36.61 Jeana [facility] Respiratory rate 2022-09-02 17:17:00 18 /min [facility] Oxygen saturation in Arterial blood by Pulse oximetry 2022-09-02 17:17:00 99 /min [facility] Body weight 2022-09-01 19:40:00 61 kg [facility] BMI 2022-09-01 19:40:00 20.45 kg/m2 [facility] Body height 2022-09-01 19:36:00 172.7 cm [facility] BP Systolic 2019-10-20 12:54:00 118 mm[Hg] Location: RUE; Position: Sitting [facility] BP Diastolic 2019-10-20 12:54:00 53 mm[Hg] Location: RUE; Position: Sitting [facility] Height 2019-10-20 12:54:00 169 cm [facility] Weight 2019-10-20 12:54:00 125 [lb_av] [facility] Body Mass Index Calculated 2019-10-20 12:54:00 19.85 kg/m2 [facility] Heart Rate 2019-10-20 12:54:00 100 /min [facility] Temperature 2019-07-20 13:06:00 98.5 [degF] [...] Calculated 2019-07-20 13:06:00 21.37 kg/m2 [facility] BP Systolic 2019-02-24 10:04:00 100 [...] Rate 2019-02-24 10:04:00 62 /min Quality: Normal [facility] Respiration Rate 2019-02-24 10:04:00 18 /min Quality: Normal [facility] O2 SAT 2019-02-24 10:04:00 100 % [...] [facility] Temperature 2019-02-07 10:53:00 98 [degF] [facility] Procedures Procedure Date / Time Performed Performing Clinician Source XR SHOULDER 2+ VW LEFT 2024-07-29 17:33:31 Donta Deluna [facility] CREATINE KINASE 2024-06-07 01:23:00 Trinidad Estrada [facility] MAGNESIUM 2024-06-07 01:23:00 Trinidad Estrada [facility] COMP. METABOLIC PANEL ([id number]) 2024-06-07 01:23:00 Trinidad Estrada [facility] CBC WITH DIFF 2024-06-07 01:23:00 [facility] 2024-06-07 01:23:00 Trinidad Estrada [facility] URINE DRUG (IMMUNOASSAY) - COMPREHENSIVE DRUG SCREEN W/O REFLEX 2024-06-07 01:23:00 Trinidad Estrada [facility] PATIENT FINANCIAL POLICY 2022-11-28 17:49:34 Doctor Unassigned, Shidler [facility] EXTERNAL PROVIDER RECORDS 2022-11-19 06:01:00 Doctor Unassigned, Shidler [facility] DEXA AXIAL (HIP AND SPINE) 2022-09-17 19:58:00 Kenya Fuentes [facility] EXTERNAL PROVIDER RECORDS 2022-09-16 06:01:00 Doctor Unassigned, Shidler [facility] ASSIGNMENT OF BENEFITS 2022-09-05 19:47:49 Docto r Unassigned, Shidler [facility] COMP. METABOLIC PANEL ([id number]) 2022-09-01 10:44:00 [facility] CBC WITH DIFF 2022-09-01 10:44:00 Nati Mitchell [facility] XR CHEST 1 VW 2022-09-01 10:15:00 Johann Cormier [facility] CREATINE KINASE 2022-08-31 09:35:00 Dolly Beasley [facility] MAGNESIUM 2022-08-31 09:35:00 Jael Coppola [facility] TROPONIN I 2022-08-31 09:35:00 Jael Coppola [facility] COMP. METABOLIC PANEL ([id number]) 2022-08-31 09:35:00 Jael Coppola [facility] SALICYLATE 2022-08-31 09:35:00 Jael Coppola [facility] ETHANOL 2022-08-31 09:35:00 Jael Coppola [facility] CBC WITH DIFF 2022-08-31 09:35:00 Jael Coppola [facility] URINE DRUG (IMMUNOASSAY) - COMPREHENSIVE DRUG SCREEN 2022-08-31 09:07:00 Jael Coppola [facility] URINE DRUG (LCMSMS) - COMPREHENSIVE DRUG PANEL 2022-08-31 09:07:00 Jael Coppola [facility] AC PANEL 20 + LACTIC ACID 2022-08-31 09:01:00 Jael Coppola [facility] XR CHEST 1 VW 2022-08-31 05:44:00 Jael Coppola [facility] XR KUB 2022-08-31 05:44:00 Jael Coppola [facility] AUTHORIZATION FOR RELEASE OF PHI 2020-08-21 06:01:00 Doctor Unassigned, Shidler [facility] [[facility]] CBC (INCLUDES DIFF/PLT) 2019-10-20 00:00:00 [facility] [QL] CMP W/EGFR 2019-10-20 00:00:00 [facility] [QL] LIPID PANEL 2019-10-20 00:00:00 [facility] [QL] TSH, 3RD GENERATION 2019-10-20 00:00:00 [facility] [Q] DRUG SCREEN,COMPREHENSIVE (URINE) 2019-07-20 00:00:00 [facility] [Q] DRUG SCREEN,COMPREHENSIVE (URINE) 2019-02-24 00:00:00 [facility] Encounters Start Date/Time End Date/Time Encounter Type Admission Type Attending [facility] Facility Care Department Encounter ID Source 2024-08-24 00:00:00 2024-08-24 00:00:00 Outpatient NICK GAINES [id number] [facility] 2024-07-29 11:41:00 2024-07-29 15:18:00 Emergency DONTA TABOR [facility] [id number] [facility] 2024-07-29 11:41:00 2024-07-29 15:18:00 Emergency Donta Deluna [facility] 1.2.840.114 350.1.13.10 4.2.7.2.686 [id number] [facility] 2024-06-09 09:30:00 2024-06-09 09:30:00 Outpatient VERNON SAMANIEGO [id number] [facility] 2024-06-08 00:00:00 2024-06-08 00:00:00 Outpatient [facility]ERNON SAMANIEGO [id number] [facility]24-[facility]-07 00:00:00 2024-06-07 00:00:00 Outpatient IHSAN CHEN [id number] [facility] 2024-06-06 20:03:00 2024-06-06 22:17:00 Emergency TRINIDAD BARR [facility] E[facility] [id number] [facility] 2024-06-06 20:03:00 2024-06-06 22:17:00 Emergency Trinidad Estrada [facility] 1..840.114 350.1.13.10 4.2.7.2.686 [id number] [facility] 2024-06-02 11:20:00 2024-06-02 11:20:00 Outpatient ILEANA WHITNEY LAIRD [id number] [facility] 2024-06-02 10:30:00 2024-06-02 10:30:00 Outpatient IHSAN CHEN [id number] [facility] 2024-05-18 15:15:00 2024-05-18 15:15:00 Outpatient ALLEN CANNON [id number] [facility] 2024-05-18 15:15:00 2024-05-18 15:15:00 Outpatient ALLEN CANNON [id number] [facility] 2023-04-24 11:00:00 2023-04-24 11:00:00 Outpatient DONTA CUEVAS [facility] [id number] [facility] 2022-12-30 00:00:00 2022-12-30 00:00:00 Telephone Donta Haynes [facility] 1..840.114 350.1.13.10 4.2.7.2.686 [id number] [facility] 2022-12-03 14:00:00 2022-12-03 14:00:00 Outpatient KENYA CHOUDHARY [facility] [id number] [facility] 2022-12-02 00:00:00 2022-12-02 00:00:00 Telephone Kenya Fuentes COUNTS INCLUDE 234 BEDS AT THE [facility] 1..840.114 350.1.13.10 4.2.7.2.686 [id number] [facility] 2022-11-28 12:00:00 2022-11-28 13:03:08 Outpatient DONTA CUEVAS [facility] [id number] [facility] 2022-11-28 12:00:00 2022-11-28 13:03:08 Office Visit Donta Haynes [facility] 1.840.114 350.1.13.10 4.2.7.2.686 [id number] [facility] 2022-11-28 00:00:00 2022-11-28 00:00:00 Orders Only Doctor Unassigned, Shidler [facility] 1.84.114 350.1.13.10 4.2.7.2.686 [id number] [facility] 2022-11-19 00:00:00 2022-11-19 00:00:00 Orders Only Doctor Unassigned, Shidler [facility] 1.84.114 350.1.13.10 4.2.7.2.686 [id number] [facility] 2022-10-20 08:00:00 2022-10-20 08:45:36 Outpatient R KENYA FUENTES [facility] [id number] [facility] 2022-10-20 08:00:00 2022-10-20 08:45:36 Office Visit Alfredo Kenya COUNTS INCLUDE 234 BEDS AT [facility] 1.840.114 350.1.13.10 4.2.7.2.686 [id number] [facility] 2022-09-23 00:00:00 2022-09-23 00:00:00 Telephone Alfredo Kenya COUNTS INCLUDE 234 BEDS AT THE [facility] 1.840.114 350.1.13.10 4.2.7.2.686 [id number] [facility] 2022-09-17 13:39:39 2022-09-17 23:59:00 Outpatient R KENYA FUENTES [facility] [id number] [facility] 2022-09-17 13:39:39 2022-09-17 23:59:00 Hospital Encounter Kenya Fuentes [facility] 1.2.840.114 350.1.13.10 4.2.7.2.686 [id number] [facility] 2022-09-16 00:00:00 2022-09-16 00:00:00 Orders Only Doctor Unassigned, Shidler [facility] 1.2840.114 350.1.13.10 4.2.7.2.686 [id number] [facility] 2022-09-05 14:00:00 2022-09-05 14:51:04 [id number] 2022-09-05 14:00:00 2022-09-05 14:51:04 Office Visit Kenya Fuentes [facility] 1.20.114 350.1.13.10 4.2.7.2.686 [id number] [facility] 2022-09-05 00:00:00 2022-09-05 00:00:00 Orders Only Doctor Unassigned, Shidler [facility] 1.2840.114 350.1.13.10 4.2.7.2.686 [id number] [facility] 2022-09-03 00:00:00 2022-09-03 00:00:00 Transition of Care Marilu Steiner 1.20.114 350.1.13.10 4.2.7.2.686 [id number] [facility] 2022-09-02 23:43:00 2022-09-02 23:56:00 Emergency X TRINIDAD ESTRADA [facility] [id number] [facility] 2022-09-02 23:43:00 2022-09-02 23:56:00 Emergency Trinidad Estrada Svetlana [facility] 1.2.840.114 350.1.13.10 4.2.7.2.686 [id number] [facility] 2022-08-30 22:42:00 2022-09-02 15:34:00 Inpatient X ANDRIY MICHAEL [facility] [id number] [facility] 2022-08-30 22:42:00 2022-09-02 15:34:00 Hospital Encounter Campbell Guerrero, Michael Patel [facility] 1.2.840.114 350.1.13.10 4.2.7.2.686 [id number] [facility] 2020-08-21 00:00:00 2020-08-21 00:00:00 Orders Only Doctor Unassigned, Shidler [facility] 1.2.840.114 350.1.13.10 4.2.7.2.686 [id number] 2020-08-21 00:00:00 2020-08-21 00:00:00 Orders Only Doctor Unassigned, Shidler [facility] 1.2.840.114 350.1.13.10 4.2.7.2.686 [id number] [facility] 2019-12-08 13:05:19 2019-12-08 14:05:19 Office Visit Kim Patel [facility] 1.2.840.114 350.1.13.10 4.2.7.2.686 [id number] 2019-12-08 13:05:19 2019-12-08 14:05:19 Office Visit Kim Patel [facility] 1.2.840.114 350.1.13.10 4.2.7.2.686 [id number] [facility] 2019-12-08 13:15:00 2019-12-08 13:15:00 Outpatient R KIM PATEL [facility] [id number] [facility] 2019-10-20 13:00:00 2019-10-20 13:00:00 Appointmen t; JAZMYN ESPINAL M.D. MEMON, SABA, M.D. [facility] [id number] [facility] 2019-07-20 13:00:00 2019-07-20 13:00:00 Appointmen t; JAZMYN ESPINAL M.D. MEMON, SABA, M.D. [facility] Psychiat[facility] - [facility] [id number] [facility] 2019-06-08 00:00:00 2019-06-08 00:00:00 Telephone Kim Patel Nixon [facility] 1.2.840.114 350.1.13.10 4.2.7.2.686 [id number] [facility] 2019-02-24 10:00:00 2019-02-24 10:00:00 Appointmen t; JAZMYN ESPINAL M.D. MEMON, SABA, M.D. [facility] [id number] [facility] 2019-02-07 10:20:00 2019-02-07 10:20:00 Appointmen t; CHANCE VAZQUEZ APRN WILLIAMSON, TIFFINY, APRN [facility] [id number] [facility] Results Test Description Test Time Test Comments Results Resul t Comments Source XR SHOULDER 2+ VW LEFT 2024-07-29 18:46:43 ORDERING PHYSICIAN: DONTA DELUNA HISTORY: ?pain TECHNIQUE:Three views of the left shoulder . Technical quality: Diagnostic. COMPARISON: None FINDINGS: There is no fracture or dislocation. ? ?[facility]remarkable. [facility][id number][facility]20[facility]-07 01:51:42* Test Item Value Reference Range Interpretation Comme nts NA (test code = 8345220929) 138 mmol/L 135-145 K (test code = 5877576115) 3.6 mmol/L 3.5-5.0 CL (test code = 0098524778) 101 mmol/L 98-108 CO2 TOTAL (test code = 0775486944) 26 mmol/L 23-31 AGAP (test code = 2198682900) 11 2-16 BUN (test code = 9705763965) 7 mg/dL 7-23 GLUCOSE (test code = 9809777035) 98 mg/dL 70-110 CREATININE (test code = 2160-0) 0.84 mg/dL 0.60-1.25 TOTAL BILI (test code = 0090052518) 1.4 mg/dL 0.1-1.1 H CALCIUM (test code = 2333528200) 9.4 mg/dL 8.6-10.6 T PROTEIN (test code = 3983610256) 7.3 g/dL 6.3-8.2 ALBUMIN (test code = 6400666809) 4.6 g/dL 3.5-5.0 ALK PHOS (test code = 5027106487) 109 U/L 34-122 ALTv (test code = 1742-6) 18 U/L 5-50 AST(SGOT) (test code = 1836861111) 23 U/L 13-40 eGFR (test code = 80111-2) 127.2 mL/min/1.73m2 CKD-EPI eGFR (2020). Assuming creatinine has been stable day-to-day for at least three months, the eGFR indicates Category G1 (>= 90 mL/min/1.73 m2) Lab Interpretation (test code = 47911-2) [facility] [id number] 01:51:22* Test Item Value Reference Range Interpretation Comme nts CK (test code = 0055427702) 195 U/L 33-194 H Lab Interpretation (test cod e = 29787-6) Abnormal [facility] WITH [id number] 01:40:20* Test Item Value Reference Range Interpretation [...] 33.7 g/dL 31.2-35.0 RDW-SD (test code = 88747-0) 44.1 fL 38.5-51.6 RDW-CV (test code = 788-0) 13.2 % 12.1-15.4 PLT (test code = 777-3) 266 150-328 MPV (test code = 68929-7) 10.2 fL 9.8-13.0 NRBC/100 WBC (test code = 0364248508) 0.0 0.0-10.0 NRBC x10^3 (test code = 7055837036) See_Comment [Automated message] The system which generated this result transmitted reference range: 10*3/?L. The reference range was not used to interpret this result as normal/abnormal. GRAN MAT (NEUT) % (test code = 770-8) 75.6 % IMM GRAN % (test code = 3384112646) 0.40 % LYMPH % (test code = 736-9) 12.1 % MONO % (test code = 5905-5) 10.5 % EOS % (test code = 713-8) 0.9 % BASO % (test code = 706-2) 0.5 % GRAN MAT x10^3(ANC) (test code = 6804847313) 10.09 10*3/uL 1.99-6.95 H IMM GRAN x10^3 (test code = 7827087732) 0.06 10*3/uL 0.00-0.06 LYMPH x10^3 (test code = 731-0) 1.61 10*3/uL 1.09-3.23 MONO x10^3 (test code = 742-7) 1.40 10*3/uL 0.36-1.02 H EOS x10^3 (test code = 711-2) 0.12 10*3/uL 0.06-0.53 BASO x10^3 (test code = 704-7) 0.07 10*3/uL 0.01-0.09 Lab Interpretation (test code = 11474-8) [facility] ([id number])2022-09-01 11:26:16* Test Item Value Reference Range Interpretation Comme nts NA (test code = 5081044397) 138 mmol/L 135-145 K (test code = 6959473339) 3.5 mmol/L 3.5-5.0 Slight hemolysis CL (test code = 4000189002) 110 mmol/L 98-108 H CO2 TOTAL (test code = 0573121675) 26 mmol/L 23-31 AGAP (test code = 4852421601) 2-16 BUN (test code = 9986515096) 9 mg/dL 7-23 Slight hemolysis GLUCOSE (test code = 8228870679) 99 mg/dL 70-110 CREATININE (test code = 0965903140) 0.73 mg/dL 0.60-1.25 TOTAL BILI (test code = 2297742110) 0.9 mg/dL 0.1-1.1 CALCIUM (test code = 2195269239) 8.2 mg/dL 8.6-10.6 L T PROTEIN (test code = 5364874670) 5.5 g/dL 6.3-8.2 L ALBUMIN (test code = 2146440389) 3.3 g/dL 3.5-5.0 L ALK PHOS (test code = 8339263681) 75 U/L 34-122 Slight hemolysis ALTv (test code = 1742-6) 16 U/L 5-50 AST(SGOT) (test code = 7291355858) 30 U/L 13-40 Slight hemolysis eGFR (test code = 8849943081) mL/min/1.73m2 KACI (test code = KACI) Association [...] imaging tests). Lab Interpretation (test code = 25555-9) Abnormal [facility] WITH [id number] 11:03:17* Test Item Value Reference Range Interpretation Comme nts WBC (test code = 6690-2) See_Comment [Automated [employer]] The system which generated this result transmitted reference range: 4.20 - 10.70 10*3/?L. The reference range was not used to interpret this result as normal/abnormal. RBC (test code = 789-8) See_Comment L [Automated [employer]] The system which generated this result transmitted [...] g/dL 31.2-35.0 H RDW-SD (test code = 53119-3) 41.7 fL 38.5-51.6 RDW-CV (test code = 788-0) 13.2 % 12.1-15.4 PLT (test code = 777-3) See_Comment [Automated [employer]] The system which generated this result transmitted reference range: 150 - 328 10*3/?L. The reference range was not used to interpret this result as normal/abnormal. MPV (test code = 85228-7) 11.9 fL 9.8-13.0 NRBC/100 WBC (test code = 2206760243) See_Comment [Automated [employer]] The system which generated this result transmitted reference range: 0.0 - 10.0 /100 WBCs. The reference range was not used to interpret this result as normal/abnormal. NRBC x10^3 (test code = 5618006995) See_Comment [Automated [employer]] The system which generated this result transmitted reference range: 10*3/?L. The reference range was not used to interpret this result as normal/abnormal. GRAN MAT (NEUT) % (test code = 770-8) 62.3 % IMM GRAN % (test code = 9986413781) 0.20 % LYMPH % (test code = 736-9) 25.7 % MONO % (test code = 5905-5) 8.0 % EOS % (test code = 713-8) 3.4 % BASO % (test code = 706-2) 0.4 % GRAN MAT x10^3(ANC) (test code = 2958319300) 5.01 10*3/uL 1.99-6.95 IMM GRAN x10^3 (test code = 2825528071) 0.00-0.06 LYMPH x10^3 (test code = 731-0) 2.07 10*3/uL 1.09-3.23 MONO x10^3 (test code = 742-7) 0.64 10*3/uL 0.36-1.02 EOS x10^3 (test code = 711-2) 0.27 10*3/uL 0.06-0.53 BASO x10^3 (test code = 704-7) 0.03 10*3/uL 0.01-0.09 Lab Interpretation (test code = 31399-0) Abnormal [facility] [id number] 17:58:42* Test Item Value Reference Range Interpretation Comme nts CK (test code = 8593764571) 180 U/L 33-194 Lab Interpretation (test cod e = 96320-8) Normal [facility] HospitalTROPONIN [id number] 11:09:00* Test Item Value Reference Range Interpretation Comments TROPONIN I (test code = 4487608053) 0.001 ng/mL See_Comment [Automated message] The system [...] of biotin. Lab Interpretation (test code = 29589-0) Normal [facility] HospitalSALICYLATE2022-12-04 10:59:14 SALICYLATE<10mg/L111/01/2021 4:59 AM CSTUT LABORATORY SERVICESTherapeutic Range: ? Analgesic and Antipyretic Use ? 20-100 mg/L ? ? Anti- Inflammatory Use ? 100-250 mg/LToxic Range: ? Greater than 300 mg/LUnSt. David's Georgetown HospitalETHANOL2022-12-04 10:59:14ALCOHOL<10mg/dL08/31/2022 4:59 AM CSTUTMB LABORATORY SERVICESToxic Greater than or equal to 80 mg/dL. NOTE: Whole blood values are approximately 10% to 15% lower than serum and plasma.[facility] [id number] 10:59:09* Test Item Value Reference Range Interpretation Comme nts ACETAMINOP (test code = 2543285197) 10.0-30.0 L KACI (test code = KACI) Toxic: Greater mamie n 200 ug/mL @ 4 hour post ingestion or greater than 50 ug/mL @ 12 hour post ingestion Lab Interpretation (test code = 53152-3) Abnormal [facility] HospitalMAGNESIUM2022-12-04 10:58:19* Test Item Value Reference Range Interpretation Comme nts MAGNESIUM (test code = 7598063664) 1.8 mg/dL 1.7-2.4 Lab Interpretation (test cod e = 85892-5) Normal [facility] HospitalCOMP. METABOLIC PANEL (48325)2022-08-31 10:58:18* Test Item Value Reference Range Interpretation Comme nts NA (test code = 0217342823) 141 mmol/L 135-145 K (test code = 1674548638) 4.0 mmol/L 3.5-5.0 CL (test code = 3599350842) 110 mmol/L 98-108 H CO2 TOTAL (test code = 2846295152) 25 mmol/L 23-31 AGAP (test code = 1861744850) 2-16 BUN (test code = 5504804729) 5 mg/dL 7-23 L GLUCOSE (test code = 2581616219) 80 mg/dL 70-110 CREATININE (test code = 2400939970) 0.71 mg/dL 0.60-1.25 TOTAL BILI (test code = 5753690770) 0.5 mg/dL 0.1-1.1 CALCIUM (test code = 6264412240) 7.7 mg/dL 8.6-10.6 L T PROTEIN (test code = 8228756491) 5.2 g/dL 6.3-8.2 L ALBUMIN (test code = 8001022088) 3.3 g/dL 3.5-5.0 L ALK PHOS (test code = 6030035333) 71 U/L 34-122 ALTv (test code = 1742-6) 16 U/L 5-50 AST(SGOT) (test code = 4732179224) 23 U/L 13-40 eGFR (test code = 3767282208) mL/min/1.73m2 KACI (test code = KACI) Association [...] imaging tests). Lab Interpretation (test code = 30160-4) Abnormal [facility] WITH [id number] 09:52:32* Test Item Value Reference Range Interpretation [...] 33.8 g/dL 31.2-35.0 RDW-SD (test code = 78435-7) 41.1 fL 38.5-51.6 RDW-CV (test code = 788-0) 12.9 % 12.1-15.4 PLT (test code = 777-3) See_Comment [Automated message] The system which generated this result transmitted reference range: 150 - 328 10*3/?L. The reference range was not used to interpret this result as normal/abnormal. MPV (test code = 93175-8) 11.1 fL 9.8-13.0 NRBC/100 WBC (test code = 1164718155) See_Comment [Automated message] The system which generated this result transmitted reference range: 0.0 - 10.0 /100 WBCs. The reference range was not used to interpret this result as normal/abnormal. NRBC x10^3 (test code = 0006539339) See_Comment [Automated message] The system which generated this result transmitted reference range: 10*3/?L. The reference range was not used to interpret this result as normal/abnormal. GRAN MAT (NEUT) % (test code = 770-8) 90.1 % IMM GRAN % (test code = 5345338187) 0.40 % LYMPH % (test code = 736-9) 5.4 % MONO % (test code = 5905-5) 3.8 % EOS % (test code = 713-8) 0.1 % BASO % (test code = 706-2) 0.2 % GRAN MAT x10^3(ANC) (test code = 0535734302) 14.75 10*3/uL 1.99-6.95 H IMM GRAN x10^3 (test code = 7863049034) 0.06 10*3/uL 0.00-0.06 LYMPH x10^3 (test code = 731-0) 0.88 10*3/uL 1.09-3.23 L MONO x10^3 (test code = 742-7) 0.62 10*3/uL 0.36-1.02 EOS x10^3 (test code = 711-2) 0.06-0.53 L BASO x10^3 (test code = 704-7) 0.03 10*3/uL 0.01-0.09 Lab Interpretation (test code = 04925-3) Abnormal [facility] HospitalAC Panel 20 + Lactic [id number] 09:16:12* Test Item Value Reference Range Interpretation Comme nts PH (test code = 2) 7.35-7.45 PCO2 (test code = 4909155509) See_Comment [Automated messa ge] The system which generated this result transmitted reference range: 35 - 45 mmHg. The reference range was not used to interpret this result as normal/abnormal. PO2 (test code = 6759986586) See_Comment H [Automated messa ge] The system which generated this result transmitted reference range: 80 - 100 mmHg. The reference range was not used to interpret this result as normal/abnormal. HCO3 (test code = 3986833528) See_Comment L [Automated messa ge] The system which generated this result transmitted reference range: 22 - 26 mEq/L. The reference range was not used to interpret this result as normal/abnormal. BE (test code = 8717957697) See_Comment L [Automated messa ge] The system which generated this result transmitted reference range: -3.0 - 3.0 mEq/L. The reference range was not used to interpret this result as normal/abnormal. THB (test code = 9647978124) 13.2 g/dL 13.5-18.0 L %O2HB (test code = 0104112046) 98.8 % 94.0-99.0 %COHB ART (test code = 5275070632) 0.3 % 0.0-1.5 %METHB ART (test code = 8100549664) 0.2 % 0.4-1.5 L VOL%O2 ART (test code = 2936375554) 18.8 % 15.0-23.0 NA (test code = 1224616390) 139 mmol/L 135-145 K+ (test code = 4132642675) 3.9 mmol/L 3.5-5.0 AC CA IONZ (test code = 4249974621) 4.60 mg/dL 4.50-5.30 GLUCOSE (test code = 1781822518) 88 mg/dL 70-110 LACTIC ACID (test code = 6260680986) 1.04 mmol/L 0.50-2.20 Lab Interpretation (test code = 43058-0) Abnormal [facility][H] Drug Screen Urine (9 Drugs)2019-07-20 15:46:01* [...] Negative Urine Propoxyphene Screen (test code = 67007-4) Negative Negative Urine Drug Screen Note (test [...] 50 ng/mLMethadone 300 ng/mLUrine alcohol 20 mg/dL [facility][H] Drug Screen Urine (9 Drugs)2019-02-24 13:44:01* [...] Negative Urine Propoxyphene Screen (test code = 59777-1) Negative Negative Urine Drug Screen Note (test [...] 50 ng/mLMethadone 300 ng/mLUrine alcohol 20 mg/dL [facility]"
[2024-09-04] MEDS ORDERED: LIDOCAINE 1% 20 ML MDV ONE (19:49)
[2024-09-04 19:56] LABS: Absolute Basophils 0.1 K/uL (0-0.5); Absolute Eosinophils 0.1 K/uL (0-0.5); Absolute Lymphocytes (CBC) 2.5 K/uL (0.7-4.9); Absolute Monocytes 0.5 K/uL (0.1-1.3); Absolute Neutrophil 3.1 K/uL (1.8-8.0); Eosinophils % 2.2 % (0-4.4); Hematocrit 39.4 % (39.6-49.0); Hemoglobin 13.3 g/dL (13.6-17.9); Lymphocytes % 39.8 % (15.3-44.8); MCH 30.9 pg (27.0-35.0); MCHC 33.8 g/dL (32.0-36.0); MCV 91.3 fL (80-100); MPV 8.1 fL (7.6-11.3); Monocytes % 8.1 % (3.3-12.3); Neutrophils % 48.9 % (41.7-73.7); Nucleated Red Blood Cells % 0.1 % (0-0); Platelets 253 thou/uL (152-406); RBC Red Blood Cell Count 4.32 M/uL (4.33-5.43); Red Cell Distribution Width 13.8 % (12.1-15.2)
--- NOTE | 2024-09-04 19:59 | RAD REPORT ---
EXAM: Hand Right 3 View HISTORY: hand injury between 1/2nd digits COMPARISON: None FINDINGS: Bones: Healing fifth metacarpal diaphyseal fracture. Alignment:No significant malalignment. Degenerative changes:None significant. Other: No radiopaque foreign body. IMPRESSION: No acute fracture. Healing fifth metacarpal fracture.
[2024-09-04 20:08] LABS: Anion Gap 6.7 mEq/L (5.0-15.0); Potassium 3.7 mEq/L (3.5-5.1)
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
[2024-09-05 00:48] VITALS: O2SAT 98
[2024-09-05 00:53] VITALS: BP 102/75; TEMP 98.6
== END 2024-09-04 20:51 | disposition home or self-care (01) ==
LOC: ER 19:12
DX: S61.411A Laceration without foreign body of right hand, initial encounter (principal); V18.0XXA Pedal cycle driver injured in noncollision transport accident in nontraffic accident, initial encounter; F17.210 Nicotine dependence, cigarettes, uncomplicated
CPT/HCPCS: 85025; 80048; 36415; 73130; 99284; 12002; J2003

== ENCOUNTER 2024-09-12 19:53 | Emergency (ER) | payer OTHER ==
--- OUTSIDE RECORDS SUMMARY | 2024-09-12 19:57 | XMS REPORT | Continuity of Care Document ---
Author Name Unknown Address [address] [facility] [address] [place] [address] [facility] Address [address] [facility] [place] [address] Care Team Providers Care Top Inventory Control Executive Name Role Phone KENYA FUENTES Primary Care Physician Unavailab NICK Montes Attending Clinician Unavailable DONTA DELUNA Attending Clinician Unavailable Donta Cope Attending Clinician [phone] VERNON SAMANIEGO Attending Clinician UnavailIHSAN Pineda Attending Clinician UnavailTRINIDAD Tan Attending Clinician Unavailab TRINIDAD Ponce Attending Clinician UnavailTrinidad Sandhu DO Attending Clinician [phone] Attending Clinician Unavailable ALLEN CANNON Attending Clinician Unavailable KENYA FUENTES Attending Clinician Unavailable DONTA HAYNES Attending Clinician UnavailDonta Raphael MD Attending Clinician [phone] CRISTINA AZUL Attending Clinician UnavailKenya Lazcano Attending Clinician [phone] Doctor Unassigned, [place] Attending Clinician U Marilu Bingham LVN Attending Clinician [phone] MICHAEL COWAN Attending Clinician Unavailable Lcui SHAH, Campbell Quesada Attending Clinician [phone] Ayaan Yung DO Attending Clinician [phone] Andriy Michael VARGAS Attending Clinician [phone] Oxana PALACIOS, Kim Alicea Attending Clinician KIM PATEL Attending Clinician JAZMYN Marie M.D. Attending Clinician UnavailCHANCE Lima APRN Attending Clinician Un available DONTA DELUNA Admitting Clinician Unavailable KENYA FUENTES Admitting Clinician Unavailable CAMPBELL GUERRERO Admitting Clinician Unava ilable Aga Ayaan VARGAS Admitting Clinician [phone] Payers Payer Name Policy Type Policy Number Effective Date Expirati on Date Source [facility] LAURENCE TAMAYO COPAY FOCUS 9 [id number] 2023 00:00:00 [facility] [id number] 2023 00:00:00 [facility] [id number] 2018 00:00:00 Problems Condition Name Condition Details Condition Category Status Onset Date Resolution Date Last Treatment Date Treating Clinician Comments Source Need for hepatitis C screening test Need for hepatitis C screening test Disease Active 10-20 00:00: 00 [facility] Low bone density for age Low bone density for age Disease Active 10-20 00:00: 00 [facility] Encounter to establish care Encounter to establish care Disease Active 2021-09 00:00: 00 [facility] RLS (restless legs syndrome) RLS (restless legs syndrome) Disease Active 2021-09 00:00: 00 [facility] BMI less than 19,adult BMI less than 19,adult Disease Active 2021-09 00:00: 00 [facility] Encounter to establish care Encounter to establish care Disease Active 2021-09 00:00: 00 [facility] Drug overdose of undetermin ed intent, initial encounter Drug overdose of undetermin ed intent, initial encounter Disease Active 2021-09 00:00: 00 [facility] Bipolar 1 disorder, mixed anxiety-de pression, moderate Bipolar 1 disorder, mixed anxiety-de pression, moderate Disease Recurre nce 02-23 00:00: 00 [facility] Anxiety Anxiety Disease Active 02-23 00:00: 00 [facility] Underweigh t in childhood with BMI < 5th percentile Underweigh t in childhood with BMI < 5th percentile Disease Active 2017-09 00:00: 00 [facility] 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 Disease Active 04-19 00:00: 00 [facility] 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 Disease Active 04-19 00:00: 00 [facility] Nicotine abuse Nicotine abuse Disease Active 01-10 00:00: 00 [facility] Marijuana abuse, continuous Marijuana abuse, continuous Disease Active 01-10 00:00: 00 [facility] Attention deficit hyperactiv ity disorder (ADHD) Attention deficit hyperactiv ity disorder (ADHD) Disease Recurre nce 2006-09 00:00: 00 [facility] Major depressive disorder with current [...] 2017-09 00:00: 00 2019-08-18 00:00:00 2019-08-18 10:02:15 [facility] Bipolar 2 disorder, major depressive episode Bipolar 2 disorder, major depressive episode Disease Resolve d 2017-09 00:00: 00 2019-02-23 00:00:00 2019-02-23 15:24:57 [facility] Episode of recurrent major depressive disorder Episode of recurrent major depressive disorder Disease Resolve d 04-19 00:00: 00 2019-02-23 00:00:00 2019-02-23 15:25:05 [facility] Esophageal reflux Esophageal reflux Disease Resolve d 2008-09 00:00: 00 2016-06-15 00:00:00 2016-06-15 20:21:02 [facility] SENSORY DISORDER SENSORY DISORDER Disease Resolve d 2006-09 00:00: 00 2016-06-15 00:00:00 2016-06-15 20:21:09 [facility] Bipolar disorder Bipolar disorder Disease Resolve d 2006-09 00:00: 00 2009-06-29 00:00:00 2022-04-13 00:12:08 [facility] Nonorganic enuresis Nonorganic enuresis Disease Resolve d 2006-09 00:00: 00 2009-05-18 00:00:00 2009-05-18 17:51:16 [facility] ASPERGER - continue to evaluate for ASPERGER - continue to evaluate for Disease Resolve d 2006-09 00:00: 00 2007-10-20 00:00:00 2007-10-20 16:52:33 [facility] Allergies, Adverse Reactions, Alerts Allergy Name Allergy Type Status Severity Reaction(s) Onset Date Inactive Date Treating Clinician Comments Source NO KNOWN ALLERGIE S Drug Class Active [facility] Social History Social Habit Start Date Stop Date Quantity Comments [facility] intake 2024-07-29 00:00:00 2024-07-29 00:00:00 Current non-drinker of alcohol (finding) [facility] Exposure to SARS-CoV-2 (event) 2022-11-18 00:00:00 2022-11-28 11:48:00 Not sure [facility] Alcohol intake 2022-10-20 00:00:00 2022-10-20 00:00:00 Current non-drinker of alcohol (finding) [facility] Tobacco Comment 2022-09-05 00:00:00 2022-09-05 00:00:00 Vapes [facility] Tobacco use and exposure 2022-09-05 00:00:00 2022-09-05 00:00:00 Smokeless tobacco non-user [facility] Cigarettes smoked current (pack per day) - Reported 2022-09-05 00:00:00 2022-09-05 00:00:00 [facility] History of Social function 2019-04-07 00:00:00 2019-04-07 00:00:00 [facility] History of tobacco use 2018-07-08 00:00:00 Cigarette Smoker [facility] Sex assigned at 2002 00:00:00 2000 00:00:00 Whitney Gomes - External Smoking Status Start Date Stop Date Source Never smoked tobacco (finding) [facility] Tobacco smoking consumption unknown Whitney Negrete Smokes tobacco daily 2022-09-05 00:00:00 [facility] Ex-smoker 2022-09-01 00:00:00 2022-09-01 00:00:00 [facility] Medications Ordered Medication Name Filled Medication Name Start Date Stop Date Current Medication? Ordering Clinician Indication Dosage Frequency Signature (SIG) Comments Components Source ketorolac (TORADOL) injection 60 mg 2023-09 17:30: 00 07-29 17:31 :00 No 60mg 60 mg, Intramuscu lar, ONCE, 1 dose, On Thu07/29/24 at 1230, Routine [facility] gabapentin 100 mg capsule 2023-09 00:00: 00 08-04 05:59 :00 Yes [id number] 100mg Take 1 capsule by mouth in the morning and 1 capsule at noon and 1 capsule in the evening. Do all this for 5 days. [facility] NaCl 0.9% (NS) bolus infusion 2,000 mL 06-07 02:00: 00 06-07 03:10 :00 No 2000mL at 999 mL/hr, 2,000 mL, IV Infusion, ONCE, 1 dose, On Thu06/06/24 at 2100, MARIBEL [facility] hydrOXYzine (ATARAX) tablet 25 mg 06-07 01:45: 00 06-07 02:06 :00 No 25mg 25 mg, Oral, ONCE, 1 dose, On Thu06/06/24 at 2045, MARIBEL [facility] ondansetron (ZOFRAN) 4 mg tablet 12-02 00:00: 00 12-13 04:59 :00 No [id number] 4mg Take 1 tablet by mouth every 8 (eight) hours as needed for Nausea and Vomiting (N/V) for up to 10 days. [facility] OXcarbazepi ne 600 mg tablet 2021-09 14:31: 18 09-05 00:00 :00 No 600mg Take 600 mg by mouth 2 (two) times daily. [facility] LORazepam 1 mg Cp24 2021-09 14:27: 07 09-05 00:00 :00 No 1mg Take 1 mg by mouth 2 (two) times daily. [facility] olanzapine (ZYPREXA ORAL) 2021-09 14:26: 27 Yes Take by mouth 2 (two) times daily. [facility] gabapentin 600 mg tablet 2021-09 14:26: 27 Yes 600mg Take 600 mg by mouth in the morning and 600 mg at noon and 600 mg in the evening. [facility] SERTraline 100 mg tablet 2021-09 14:19: 22 09-05 00:00 :00 No 100mg Take 100 mg by mouth daily. [facility] nicotine (NICODERM) 21 mg/24 hr patch 1 Patch 2021-09 19:45: 00 Yes 1{patch } 1 Patch, Topical, Administer over 24 Hours, Q24H, First dose on Thu09/02/22 at 1345, Until Discontinu ed, Routine [facility] hydrOXYzine (ATARAX) tablet 10 mg 2021-09 19:30: 00 09-02 18:49 :00 No 10mg 10 mg, Oral, ONCE, 1 dose, On Thu09/02/22 at 1330, Routine [facility] gabapentin 600 mg tablet 2021-09 17:34: 50 Yes 600mg Take 600 mg by mouth in the morning and 600 mg at noon and 600 mg in the evening. [facility] OXcarbazepi ne 600 mg tablet 2021-09 15:34: 48 Yes 600mg Take 600 mg by mouth 2 (two) times daily. [facility] SERTraline 100 mg tablet 2021-09 15:34: 48 Yes 100mg Take 100 mg by mouth daily. [facility] olanzapine (ZYPREXA ORAL) 2021-09 15:34: 48 Yes Take by mouth 2 (two) times daily. [facility] LORazepam 1 mg Cp24 2021-09 15:34: 48 Yes 1mg Take 1 mg by mouth 2 (two) times daily. [facility] gabapentin 600 mg tablet 2021-09 15:34: 48 Yes 600mg Take 600 mg by mouth in the morning and 600 mg at noon and 600 mg in the evening. [facility] LORazepam (ATIVAN) tablet 1 mg 2021-09 15:00: 00 Yes 1mg 1 mg, Oral, QAM, First dose on Thu09/02/22 at 0900, Until Discontinu ed, Routine [facility] OLANZapine (ZyPREXA) tablet 15 mg 2021-09 03:00: 00 Yes 15mg 15 mg, Oral, QHS, First dose on Thu09/01/22 at 2100, Until Discontinu ed, Routine [facility] PARoxetine (PAXIL) tablet 20 mg 2021-09 03:00: 00 Yes 20mg 20 mg, Oral, QHS, First dose on Thu09/01/22 at 2100, Until Discontinu ed, Routine [facility] gabapentin (NEURONTIN) tablet 600 mg 2021-09 02:00: 00 Yes 600mg 600 mg, Oral, TID, First dose on Thu09/01/22 at 2000, Until Discontinu ed, [facility] (TYLENOL) tablet 325 mg 2021-09 23:49: 00 09-02 00:20 :00 No 325mg 325 mg, Oral, ONCE, 1 dose, On Thu09/01/22 at 1800, [facility] clonazePAM (KLONOPIN) tablet 1 mg 2021-09 16:15: 00 Yes 1mg 1 mg, Oral, Q8H, First dose (after last modificati on) on Thu09/01/22 at 1015, Until Discontinu ed, Routine [facility] ketamine (KETALAR) injection 50 mg 2021-09 23:30: 00 08-31 07:04 :00 No 50mg 50 mg, Slow IV Push, ONCE, 1 dose, On Thu08/31/22 at 1730, Routine [facility] clonazePAM 0.1 mg/mL oral suspension 1 mg 2021-09 20:00: 00 09-01 14:29 :11 No 1mg 1 mg, Oral, TID, First dose on Thu08/31/22 at 1400, Until Discontinu ed, Routine [facility] midazolam (VERSED) STD 50mg in [...] at maximum allowed dose, contact prescriber .
[facility] enoxaparin (LOVENOX) injection 40 mg 2021-09 15:00: 00 Yes 40mg 40 mg, Subcutaneo us, DAILY, First dose on Thu08/31/22 at 0900, Until Discontinu ed, Routine [facility] dexMEDEtomi dine 200 mcg in 0.9 % NaCl 50 mL (PRECEDEX) RTU IV infusion 2021-09 14:33: 19 09-02 00:39 :35 No .2ug/kg /h 0.2-1.5 mcg/kg/hr ?61 kg (3.05-22.8 75 mL/hr, rounded to 3.05-22.88 mL/hr), IV Infusion, TITRATE, Sedation-R ASS score (0 to -1), Starting on [place] 08/31/22 at 0833
In itiate infusion at 0.2 mcg/kg/hr and titrate by 0.1 mcg/kg/hr every 30 minutes to goal sedation score. Maximum dose = 1.5 mcg/kg/hr. If goal not maintained at maximum allowed dose, contact prescriber .
[facility] fentaNYL PF (SUBLIMAZE) STD 2,500 mcg in NaCl 0.9% (NS) 250 mL infusion RTU 2021-09 08:03: 47 09-01 11:18 :51 No 25ug/h 25-200 mcg/hr (2.5-20 mL/hr), IV Infusion, TITRATE, CPOT/Pain Scale Goals Determined by Provider, Starting on [place] 08/31/22 at 0203
In itiate infusion at 25 mcg/hr. Titrate by 25 mcg/hr every 1 minute to 15 minutes to identified goal pain and/or sedation scores. Maximum dose = 200 mcg/hr. If goal not maintained at maximum allowed dose, contact prescriber .
[facility] FENTanyl PF (SUBLIMAZE (PF)) injection 50 mcg 2021-09 08:00: 00 08-31 07:14 :00 No 50ug 50 mcg, Slow IV Push, ONCE, 1 dose, On [place] 08/31/22 at 0200, Routine [facility] propofoL IV infusion 2021-09 07:24: [...] vials should be discarded after 12 hours.
[facility] lactated ringers IV infusion 1,000 mL 2021-09 07:15: 00 08-31 07:00 :00 No 1000mL at 999 mL/hr, 1,000 mL, Intravenou s, ONCE, 1 dose, On [place] 08/31/22 at 0115, Routine [facility] midazolam (VERSED) STD 50mg in [...] at maximum allowed dose, contact prescriber .
[facility] gabapentin 300 mg/6 mL (6 mL) solution 2021-09 23:09: 11 08-30 00:00 :00 No Take by mouth 2 (two) times daily. prescribed at [facility] no summer 2018 [facility] PARoxetine 20 mg tablet 2021-09 00:00: 00 Yes 20mg Take 20 mg by mouth in the morning. [facility] LORazepam 1 mg tablet 2021-09 00:00: 00 Yes 1mg Take 1 mg by mouth in the morning. [facility] SERTraline 100 mg tablet 10-22 18:52: 12 Yes 100mg Take 100 mg by mouth daily. Prescribed by [facility] - Apr 2019 [facility] olanzapine (ZYPREXA ORAL) 10-22 18:52: 09 Yes Take by mouth 2 (two) times daily. Prescribed by [facility] Apr 2019 [facility] gabapentin 300 mg/6 mL (6 mL) solution 10-22 18:52: 07 Yes Take by mouth 2 (two) times daily. prescribed at [facility] no summer 2018 [facility] OXcarbazepi ne (TRILEPTAL) 600 mg tablet 10-22 18:52: 06 Yes 600mg Take 600 mg by mouth 2 (two) times daily. [facility] Sertraline HCl - 50 MG [...] (1) TABLET(S) BY MOUTH TWICE A DAY. [facility] busPIRone 15 mg tablet 03-03 00:00: 00 Yes [id number] 15mg Take 1 tablet by mouth 2 (two) times daily. [facility] DULoxetine 60 mg capsule 03-01 00:00: 00 Yes [id number] 60mg Take 1 capsule by mouth daily. [facility] DULoxetine 30 mg capsule 03-01 00:00: 00 Yes [id number] 30mg Take 1 capsule by mouth daily. [facility] OXcarbazepi ne (TRILEPTAL) 600 mg tablet 02-23 19:48: 44 Yes 600mg Take 600 mg by mouth 2 (two) times daily. [facility] traZODONE 50 mg tablet 02-23 00:00: 00 Yes [id number] 25mg Take 0.5 tablets by mouth 2 (two) times daily. [facility] Multi-Vitam in TABS Multi-Vitam in TABS Yes M.A. [facility] Immun[facility] Ordered Immunization Name Filled Immunization Name Date Status Comments Source Gardasil 9 Intramuscular Suspension 2018-05-25 00:00:00 Completed [facility] Meningococcal, MCV4, unspecified conjugate formulation(groups A, C, Y and W-135) 2018-05-25 00:00:00 Completed [facility] Boostrix 5-2.5-18.5 Intramuscular Suspension 2018-05-21 00:00:00 Completed [facility] influenza virus vaccine, unspecified formulation 2017-09-03 00:00:00 Completed [facility] influenza virus vaccine, unspecified formulation 2016-07-01 00:00:00 Completed [facility] FluMist Quadrivalent Nasal Suspension 2015-08-06 00:00:00 Completed [facility] Boostrix 5-2.5-18.5 Intramuscular Suspension 2014-12-28 00:00:00 Completed [facility] Meningococcal, MCV4, unspecified conjugate formulation(groups A, C, Y and W-135) 2014-12-28 00:00:00 Completed [facility] influenza virus vaccine, unspecified formulation 2014-06-23 00:00:00 Completed [facility] Gardasil Intramuscular Suspension 2014-05-25 00:00:00 Completed [facility] Boostrix 5-2.5-18.5 Intramuscular Suspension 2014-05-25 00:00:00 Completed [facility] Meningococcal, MCV4, unspecified conjugate formulation(groups A, C, Y and W-135) 2014-05-25 00:00:00 Completed [facility] TDAP 2014-05-25 00:00:00 Completed [facility] Meningococcal Polysaccharide (groups A, C, Y and W-135) conjugate vaccine (MCV4P) 2014-05-25 00:00:00 Completed [facility] HPV 2014-05-25 00:00:00 Completed [facility] TDAP 2014-05-25 00:00:00 Completed [facility] Meningococcal Polysaccharide (groups A, C, Y and W-135) conjugate vaccine (MCV4P) 2014-05-25 00:00:00 Completed [facility] HPV 2014-05-25 00:00:00 Completed [facility] TDAP 2014-05-25 00:00:00 Completed [facility] Meningococcal Polysaccharide (groups A, C, Y and W-135) conjugate vaccine (MCV4P) 2014-05-25 00:00:00 Completed [facility] HPV 2014-05-25 00:00:00 Completed [facility] TDAP 2014-05-25 00:00:00 Completed [facility] Meningococcal Polysaccharide (groups A, C, Y and W-135) conjugate vaccine (MCV4P) 2014-05-25 00:00:00 Completed [facility] HPV 2014-05-25 00:00:00 Completed [facility] TDAP 2014-05-25 00:00:00 Completed [facility] Meningococcal Polysaccharide (groups A, C, Y and W-135) conjugate vaccine (MCV4P) 2014-05-25 00:00:00 Completed [facility] Tdap 2014-05-25 00:00:00 Completed [facility] HPV 2014-05-25 00:00:00 Completed [facility] Meningococcal Polysaccharide (groups A, C, Y and W-135) conjugate vaccine (MCV4P) 2014-05-25 00:00:00 Completed [facility] HPV 2014-05-25 00:00:00 Completed [facility] TDAP 2014-05-25 00:00:00 Completed [facility] Meningococcal Polysaccharide (groups A, C, Y and W-135) conjugate vaccine (MCV4P) 2014-05-25 00:00:00 Completed [facility] HPV 2014-05-25 00:00:00 Completed [facility] TDAP 2014-05-25 00:00:00 Completed [facility] Meningococcal Polysaccharide (groups A, C, Y and W-135) conjugate vaccine (MCV4P) 2014-05-25 00:00:00 Completed [facility] HPV 2014-05-25 00:00:00 Completed [facility] TDAP 2014-05-25 00:00:00 Completed [facility] Meningococcal Polysaccharide (groups A, C, Y and W-135) conjugate vaccine (MCV4P) 2014-05-25 00:00:00 Completed [facility] HPV 2014-05-25 00:00:00 Completed [facility] TDAP 2014-05-25 00:00:00 Completed [facility] Meningococcal Polysaccharide (groups A, C, Y and W-135) conjugate vaccine (MCV4P) 2014-05-25 00:00:00 Completed [facility] HPV 2014-05-25 00:00:00 Completed [facility] TDAP 2014-05-25 00:00:00 Completed [facility] Meningococcal Polysaccharide (groups A, C, Y and W-135) conjugate vaccine (MCV4P) 2014-05-25 00:00:00 Completed [facility] HPV 2014-05-25 00:00:00 Completed [facility] Tdap 2014-05-25 00:00:00 Completed [facility] TDAP 2014-05-25 00:00:00 Completed [facility] Meningococcal Polysaccharide (groups A, C, Y and W-135) conjugate vaccine (MCV4P) 2014-05-25 00:00:00 Completed [facility] HPV 2014-05-25 00:00:00 Completed [facility] Meningococcal Polysaccharide (groups A, C, Y and W-135) conjugate vaccine (MCV4P) 2014-05-25 00:00:00 Completed [facility] HPV 2014-05-25 00:00:00 Completed [facility] TDAP 2014-05-25 00:00:00 Completed [facility] Meningococcal Polysaccharide (groups A, C, Y and W-135) conjugate vaccine (MCV4P) 2014-05-25 00:00:00 Completed [facility] HPV 2014-05-25 00:00:00 Completed [facility] TDAP 2014-05-25 00:00:00 Completed [facility] Meningococcal Polysaccharide (groups A, C, Y and W-135) conjugate vaccine (MCV4P) 2014-05-25 00:00:00 Completed [facility] HPV 2014-05-25 00:00:00 Completed [facility] TDAP 2014-05-25 00:00:00 Completed [facility] Meningococcal Polysaccharide (groups A, C, Y and W-135) conjugate vaccine (MCV4P) 2014-05-25 00:00:00 Completed [facility] HPV 2014-05-25 00:00:00 Completed [facility] TDAP 2014-05-25 00:00:00 Completed [facility] Meningococcal Polysaccharide (groups A, C, Y and W-135) conjugate vaccine (MCV4P) 2014-05-25 00:00:00 Completed HPV 2014-05-25 00:00:00 Completed TDAP 2014-05-25 00:00:00 Completed [facility] Meningococcal Polysaccharide (groups A, C, Y and W-135) conjugate vaccine (MCV4P) 2014-05-25 00:00:00 Completed [facility] HPV 2014-05-25 00:00:00 Completed [facility] influenza virus vaccine, unspecified formulation 2009-08-09 00:00:00 Completed [facility] H1n1 Vaccine 2009-08-09 00:00:00 Completed [facility] Influenza Virus Vaccine 2009-08-09 00:00:00 Completed [facility] H1n1 Vaccine 2009-08-09 00:00:00 Completed [facility] Influenza Virus Vaccine 2009-08-09 00:00:00 Completed [facility] H1n1 Vaccine 2009-08-09 00:00:00 Completed [facility] Influenza Virus Vaccine 2009-08-09 00:00:00 Completed [facility] H1n1 Vaccine 2009-08-09 00:00:00 Completed [facility] Influenza Virus Vaccine 2009-08-09 00:00:00 Completed [facility] H1n1 Vaccine 2009-08-09 00:00:00 Completed [facility] Influenza Virus Vaccine 2009-08-09 00:00:00 Completed [facility] H1n1 Vaccine 2009-08-09 00:00:00 Completed [facility] Influenza Virus Vaccine 2009-08-09 00:00:00 Completed [facility] H1n1 Vaccine 2009-08-09 00:00:00 Completed [facility] Influenza Virus Vaccine 2009-08-09 00:00:00 Completed [facility] H1n1 Vaccine 2009-08-09 00:00:00 Completed [facility] Influenza Virus Vaccine 2009-08-09 00:00:00 Completed [facility] H1n1 Vaccine 2009-08-09 00:00:00 Completed [facility] Influenza Virus Vaccine 2009-08-09 00:00:00 Completed [facility] H1n1 Vaccine 2009-08-09 00:00:00 Completed [facility] Influenza Virus Vaccine 2009-08-09 00:00:00 Completed [facility] H1n1 Vaccine 2009-08-09 00:00:00 Completed [facility] Influenza Virus Vaccine 2009-08-09 00:00:00 Completed [facility] H1n1 Vaccine 2009-08-09 00:00:00 Completed [facility] Influenza Virus Vaccine 2009-08-09 00:00:00 Completed [facility] H1n1 Vaccine 2009-08-09 00:00:00 Completed [facility] Influenza Virus Vaccine 2009-08-09 00:00:00 Completed [facility] H1n1 Vaccine 2009-08-09 00:00:00 Completed [facility] Influenza Virus Vaccine 2009-08-09 00:00:00 Completed [facility] H1n1 Vaccine 2009-08-09 00:00:00 Completed [facility] Influenza Virus Vaccine 2009-08-09 00:00:00 Completed [facility] H1n1 Vaccine 2009-08-09 00:00:00 Completed [facility] Influenza Virus Vaccine 2009-08-09 00:00:00 Completed [facility] H1n1 Vaccine 2009-08-09 00:00:00 Completed Influenza Virus Vaccine 2009-08-09 00:00:00 Completed H1n1 Vaccine 2009-08-09 00:00:00 Completed [facility] Influenza Virus Vaccine 2009-08-09 00:00:00 Completed [facility] influenza virus vaccine, unspecified formulation 2009-07-04 00:00:00 Completed [facility] Influenza Virus Vaccine 2009-07-04 00:00:00 Completed [facility] Influenza Virus Vaccine 2009-07-04 00:00:00 Completed [facility] Influenza Virus Vaccine 2009-07-04 00:00:00 Completed [facility] Influenza Virus Vaccine 2009-07-04 00:00:00 Completed [facility] Influenza Virus Vaccine 2009-07-04 00:00:00 Completed [facility] Influenza Virus Vaccine 2009-07-04 00:00:00 Completed [facility] Influenza Virus Vaccine 2009-07-04 00:00:00 Completed [facility] Influenza Virus Vaccine 2009-07-04 00:00:00 Completed [facility] Influenza Virus Vaccine 2009-07-04 00:00:00 Completed [facility] Influenza Virus Vaccine 2009-07-04 00:00:00 Completed [facility] Influenza Virus Vaccine 2009-07-04 00:00:00 Completed [facility] Influenza Virus Vaccine 2009-07-04 00:00:00 Completed [facility] Influenza Virus Vaccine 2009-07-04 00:00:00 Completed [facility] Influenza Virus Vaccine 2009-07-04 00:00:00 Completed [facility] Influenza Virus Vaccine 2009-07-04 00:00:00 Completed [facility] Influenza Virus Vaccine 2009-07-04 00:00:00 Completed [facility] Influenza Virus Vaccine 2009-07-04 00:00:00 Completed [facility] Influenza Virus Vaccine 2009-07-04 00:00:00 Completed [facility] hepatitis A vaccine, pediatric/adolescent dosage, [...] [facility] Influenza Virus Vaccine Unknown Completed [facility] H1n1 Vaccine Unknown Completed [facility] TDAP Unknown Completed [facility] Meningococcal Polysaccharide (groups A, C, Y and W-135) conjugate vaccine (MCV4P) Unknown Completed [facility] HPV Unknown Completed [facility] Vital Signs Vital Name Observation Time Observation Value Comments S arielle Systolic blood pressure 2024-07-29 19:40:00 116 mm[Hg] [facility] Diastolic blood pressure 2024-07-29 19:40:00 78 mm[Hg] [facility] Heart rate 2024-07-29 19:40:00 93 /min [facility] Respiratory rate 2024-07-29 19:40:00 16 /min [facility] Oxygen saturation in Arterial blood by Pulse oximetry 2024-07-29 19:40:00 98 /min [facility] Body temperature 2024-07-29 16:40:00 36.39 Jeana [facility] Body height 2024-07-29 16:40:00 172.7 cm [facility] Body weight 2024-07-29 16:40:00 49.896 kg [facility] BMI 2024-07-29 16:40:00 16.73 kg/m2 [facility] Systolic blood pressure 2024-06-07 03:00:00 73 mm[Hg] [facility] Diastolic blood pressure 2024-06-07 03:00:00 64 mm[Hg] [facility] Body temperature 2024-06-07 03:00:00 36.61 Jeana [facility] Respiratory rate 2024-06-07 03:00:00 25 /min [facility] Oxygen saturation in Arterial blood by Pulse oximetry 2024-06-07 03:00:00 98 /min [facility] Heart rate 2024-06-07 00:52:00 67 /min [facility] Body height 2024-06-07 00:52:00 172.7 cm [facility] Body weight 2024-06-07 00:52:00 51.256 kg [facility] BMI 2024-06-07 00:52:00 17.18 kg/m2 [facility] Systolic blood pressure 2024-06-02 15:36:00 [...] Systolic blood pressure 2022-11-28 17:50:00 104 mm[Hg] [facility] Diastolic blood pressure 2022-11-28 17:50:00 52 mm[Hg] [facility] Heart rate 2022-11-28 17:50:00 106 /min [facility] Body height 2022-11-28 17:50:00 172.7 cm [facility] Body weight 2022-11-28 17:50:00 62.551 kg [facility] BMI 2022-11-28 17:50:00 20.97 kg/m2 [facility] Oxygen saturation in Arterial blood by Pulse oximetry 2022-11-28 17:50:00 93 /min [facility] Systolic blood pressure 2022-10-20 14:09:00 108 mm[Hg] [facility] Diastolic blood pressure 2022-10-20 14:09:00 65 mm[Hg] [facility] Heart rate 2022-10-20 14:09:00 95 /min [facility] Body temperature 2022-10-20 14:09:00 37.06 Jeana [facility] Body height 2022-10-20 14:09:00 172.7 cm [facility] Body weight 2022-10-20 14:09:00 58.968 kg [facility] BMI 2022-10-20 14:09:00 19.77 kg/m2 [facility] Oxygen saturation in Arterial blood by Pulse oximetry 2022-10-20 14:09:00 98 /min [facility] Systolic blood pressure 2022-09-05 20:22:00 101 mm[Hg] [facility] Diastolic blood pressure 2022-09-05 20:22:00 64 mm[Hg] [facility] Heart rate 2022-09-05 20:22:00 62 /min [facility] Body temperature 2022-09-05 20:22:00 36.33 Jeana [facility] Body height 2022-09-05 20:22:00 172.7 cm [facility] Body weight 2022-09-05 20:22:00 56.337 kg [facility] BMI 2022-09-05 20:22:00 18.88 kg/m2 [facility] Oxygen saturation in Arterial blood by Pulse oximetry 2022-09-05 20:22:00 97 /min [facility] Systolic blood pressure 2022-09-03 05:40:00 110 mm[Hg] [facility] Diastolic blood pressure 2022-09-03 05:40:00 81 mm[Hg] [facility] Heart rate 2022-09-03 05:40:00 64 /min [facility] Body temperature 2022-09-03 05:40:00 37.22 Jeana [facility] Respiratory rate 2022-09-03 05:40:00 18 /min [facility] Body height 2022-09-03 05:40:00 172.7 cm [facility] Body weight 2022-09-03 05:40:00 57.153 kg [facility] BMI 2022-09-03 05:40:00 19.16 kg/m2 [facility] Oxygen saturation in Arterial blood by Pulse oximetry 2022-09-03 05:40:00 100 /min [facility] Systolic blood pressure 2022-09-02 17:17:00 114 mm[Hg] [facility] Diastolic blood pressure 2022-09-02 17:17:00 75 mm[Hg] [facility] Heart rate 2022-09-02 17:17:00 81 /min [facility] Body temperature 2022-09-02 17:17:00 36.61 Jeana [facility] Respiratory rate 2022-09-02 17:17:00 18 /min [facility] Oxygen saturation in Arterial blood by Pulse oximetry 2022-09-02 17:17:00 99 /min [facility] Body weight 2022-09-01 19:40:00 61 kg [facility] BMI 2022-09-01 19:40:00 20.45 kg/m2 [facility] Body height 2022-09-01 19:36:00 172.7 cm [facility] BP Systolic 2019-10-20 12:54:00 118 [...] Rate 2019-02-24 10:04:00 62 /min Quality: Normal [facility] Respiration Rate 2019-02-24 10:04:00 18 /min Quality: Normal [facility] O2 SAT 2019-02-24 10:04:00 100 % [...] [facility] Temperature 2019-02-07 10:53:00 98 [degF] [facility] Procedures Procedure Date / Time Performed Performing Clinician Source XR SHOULDER 2+ VW LEFT 2024-07-29 17:33:31 Donta Deluna [facility] CREATINE KINASE 2024-06-07 01:23:00 Trinidad Estrada [facility] MAGNESIUM 2024-06-07 01:23:00 Trinidad Estrada [facility] COMP. METABOLIC PANEL ([id number]) 2024-06-07 01:23:00 Trinidad Estrada [facility] CBC WITH DIFF 2024-06-07 01:23:00 [facility] 2024-06-07 01:23:00 Trinidad Estrada [facility] URINE DRUG (IMMUNOASSAY) - COMPREHENSIVE DRUG SCREEN W/O REFLEX 2024-06-07 01:23:00 Trinidad Estrada [facility] PATIENT FINANCIAL POLICY 2022-11-28 17:49:34 Doctor Unassigned, [place] [facility] EXTERNAL PROVIDER RECORDS 2022-11-19 06:01:00 Doctor Unassigned, [place] [facility] DEXA AXIAL (HIP AND SPINE) 2022-09-17 19:58:00 Kenya Fuentes [facility] EXTERNAL PROVIDER RECORDS 2022-09-16 06:01:00 Doctor Unassigned, [place] [facility] ASSIGNMENT OF BENEFITS 2022-09-05 19:47:49 Docto r Unassigned, [place] [facility] COMP. METABOLIC PANEL ([id number]) 2022-09-01 10:44:00 [facility] CBC WITH DIFF 2022-09-01 10:44:00 Nati Mitchell [facility] XR CHEST 1 VW 2022-09-01 10:15:00 Johann Cormier [facility] CREATINE KINASE 2022-08-31 09:35:00 Dolly Beasley [facility] MAGNESIUM 2022-08-31 09:35:00 Jael Coppola [facility] TROPONIN I 2022-08-31 09:35:00 Jael Coppola [facility] COMP. METABOLIC PANEL ([id number]) 2022-08-31 09:35:00 Jael Coppola [facility] SALICYLATE 2022-08-31 09:35:00 Jael Coppola [facility] ETHANOL 2022-08-31 09:35:00 Jael Coppola [facility] CBC WITH DIFF 2022-08-31 09:35:00 Jael Coppola [facility] URINE DRUG (IMMUNOASSAY) - COMPREHENSIVE DRUG SCREEN 2022-08-31 09:07:00 Jael Coppola [facility] URINE DRUG (LCMSMS) - COMPREHENSIVE DRUG PANEL 2022-08-31 09:07:00 Jael Coppola [facility] AC PANEL 20 + LACTIC ACID 2022-08-31 09:01:00 Jael Coppola [facility] XR CHEST 1 VW 2022-08-31 05:44:00 Jael Coppola [facility] XR KUB 2022-08-31 05:44:00 Jael Coppola [facility] AUTHORIZATION FOR RELEASE OF PHI 2020-08-21 06:01:00 Doctor Unassigned, [place] [facility] [[facility]] CBC (INCLUDES DIFF/PLT) 2019-10-20 00:00:00 [facility] [QL] CMP W/EGFR 2019-10-20 00:00:00 [facility] [QL] LIPID PANEL 2019-10-20 00:00:00 [facility] [QL] TSH, 3RD GENERATION 2019-10-20 00:00:00 [facility] [Q] DRUG SCREEN,COMPREHENSIVE (URINE) 2019-07-20 00:00:00 [facility] [Q] DRUG SCREEN,COMPREHENSIVE (URINE) 2019-02-24 00:00:00 [facility] Encounters Start Date/Time End Date/Time Encounter Type Admission Type Attending [facility] Facility Care Department Encounter ID Source 2024-08-24 00:00:00 2024-08-24 00:00:00 Outpatient NICK GAINES [id number] [facility] 2024-07-29 11:41:00 2024-07-29 15:18:00 Emergency DONTA TABOR [facility] E[facility] [id number] [facility] 2024-07-29 11:41:00 2024-07-29 15:18:00 Emergency Donta Deluna [facility] 1.2.840.114 350.1.13.10 4.2.7.2.686 [id number] [facility] 2024-06-09 09:30:00 2024-06-09 09:30:00 Outpatient VERNON SAMANIEGO [id number] [facility] 2024-06-08 00:00:00 2024-06-08 00:00:00 Out[facility]IE[facility] [id number] [facility] 2024-[facility]-07 00:00:00 2024-06-07 00:00:00 Outpatient IHSAN CHEN [id number] [facility] 2024-06-06 20:03:00 2024-06-06 22:17:00 Emergency TRINIDAD BARR SANDRA [facility] ERT [id number] [facility] 2024-06-06 20:03:00 2024-06-06 22:17:00 Emergency Trinidad Etsrada [facility] 1..840.114 350.1.13.10 4.2.7.2.686 [id number] [facility] 2024-06-02 11:20:00 2024-06-02 11:20:00 Outpatient ILEANA WHITNEY LAIRD [id number] [facility] 2024-06-02 10:30:00 2024-06-02 10:30:00 Outpatient IHSAN CHEN [id number] [facility] 2024-05-18 15:15:00 2024-05-18 15:15:00 Outpatient ALLEN CANNON [id number] [facility] 2024-05-18 15:15:00 2024-05-18 15:15:00 Outpatient ALLEN CANNON [id number] [facility] 2023-04-24 11:00:00 2023-04-24 11:00:00 Outpatient DONTA CUEVAS [facility] [id number] [facility] 2022-12-30 00:00:00 2022-12-30 00:00:00 Telephone Donta Haynes [facility] 1..840.114 350.1.13.10 4.2.7.2.686 [id number] [facility] 2022-12-03 14:00:00 2022-12-03 14:00:00 Outpatient KENYA CHOUDHARY [facility] [id number] [facility] 2022-12-02 00:00:00 2022-12-02 00:00:00 Telephone Kenya Fuentes [facility] 1..840.114 350.1.13.10 4.2.7.2.686 [id number] [facility] 2022-11-28 12:00:00 2022-11-28 13:03:08 Outpatient DONTA CUEVAS [facility] [id number] [facility] 2022-11-28 12:00:00 2022-11-28 13:03:08 Office Visit Donta Haynes [facility] 1.840.114 350.1.13.10 4.2.7.2.686 [id number] [facility] 2022-11-28 00:00:00 2022-11-28 00:00:00 Orders Only Doctor Unassigned, [place] [facility] 1.84.114 350.1.13.10 4.2.7.2.686 [id number] [facility] 2022-11-19 00:00:00 2022-11-19 00:00:00 Orders Only Doctor Unassigned, [place] [facility] 1.84.114 350.1.13.10 4.2.7.2.686 [id number] [facility] 2022-10-20 08:00:00 2022-10-20 08:45:36 Outpatient R KENYA FUENTES [facility] [id number] [facility] 2022-10-20 08:00:00 2022-10-20 08:45:36 Office Visit Alfredo Kenya [facility] 1.840.114 350.1.13.10 4.2.7.2.686 [id number] [facility] 2022-09-23 00:00:00 2022-09-23 00:00:00 Telephone Alfredo Kenya [facility] 1.840.114 350.1.13.10 4.2.7.2.686 [id number] [facility] 2022-09-17 13:39:39 2022-09-17 23:59:00 Outpatient R KENYA FUENTES [facility] [id number] [facility] 2022-09-17 13:39:39 2022-09-17 23:59:00 Hospital Encounter Kenya Fuentes [facility] 1.2.840.114 350.1.13.10 4.2.7.2.686 [id number] [facility] 2022-09-16 00:00:00 2022-09-16 00:00:00 Orders Only Doctor Unassigned, [place] [facility] 1.2840.114 350.1.13.10 4.2.7.2.686 [id number] [facility] 2022-09-05 14:00:00 2022-09-05 14:51:04 [id number] 2022-09-05 14:00:00 2022-09-05 14:51:04 Office Visit Kenya Fuentes [facility] 1.20.114 350.1.13.10 4.2.7.2.686 [id number] [facility] 2022-09-05 00:00:00 2022-09-05 00:00:00 Orders Only Doctor Unassigned, [place] [facility] 1.2840.114 350.1.13.10 4.2.7.2.686 [id number] [facility] 2022-09-03 00:00:00 2022-09-03 00:00:00 Transition of Care Marilu Steiner 1.20.114 350.1.13.10 4.2.7.2.686 [id number] [facility] 2022-09-02 23:43:00 2022-09-02 23:56:00 Emergency X TRINIDAD ESTRADA [facility] [id number] [facility] 2022-09-02 23:43:00 2022-09-02 23:56:00 Emergency Trinidad Estrada Svetlana [facility] 1.2.840.114 350.1.13.10 4.2.7.2.686 [id number] [facility] 2022-08-30 22:42:00 2022-09-02 15:34:00 Inpatient X ANDRIY MICHAEL [facility] [id number] [facility] 2022-08-30 22:42:00 2022-09-02 15:34:00 Hospital Encounter Campbell Guerrero, Michael Patel [facility] 1.2.840.114 350.1.13.10 4.2.7.2.686 [id number] [facility] 2020-08-21 00:00:00 2020-08-21 00:00:00 Orders Only Doctor Unassigned, [place] [facility] 1.2.840.114 350.1.13.10 4.2.7.2.686 [id number] 2020-08-21 00:00:00 2020-08-21 00:00:00 Orders Only Doctor Unassigned, [place] [facility] 1.2.840.114 350.1.13.10 4.2.7.2.686 [id number] [facility] 2019-12-08 13:05:19 2019-12-08 14:05:19 Office Visit Kim Patel [facility] [place] 1.2.840.114 350.1.13.10 4.2.7.2.686 [id number] 2019-12-08 13:05:19 2019-12-08 14:05:19 Office Visit Kim Patel [facility] [place] 1.2.840.114 350.1.13.10 4.2.7.2.686 [id number] [facility] 2019-12-08 13:15:00 2019-12-08 13:15:00 Outpatient R KIM PATEL [facility] [id number] [facility] 2019-10-20 13:00:00 2019-10-20 13:00:00 Appointmen t; JAZMYN ESPINAL M.D. MEMON, SABA, M.D. [facility] [id number] [facility] 2019-07-20 13:00:00 2019-07-20 13:00:00 Appointmen t; JAZMYN ESPINAL M.D. MEMON, SABA, M.D. [facility] Psych[facility] - [facility] [id number] [facility] 2019-06-08 00:00:00 2019-06-08 00:00:00 Telephone Kim Patel Nixon [facility] [place] 1.2.840.114 350.1.13.10 4.2.7.2.686 [id number] [facility] 2019-02-24 10:00:00 2019-02-24 10:00:00 Appointmen t; JAZMYN ESPINAL M.D. MEMON, SABA, M.D. [facility] [id number] [facility] 2019-02-07 10:20:00 2019-02-07 10:20:00 Appointmen t; CHANCE VAZQUEZ APRN WILLIAMSON, TIFFINY, APRN [facility] [id number] [facility] Results Test Description Test Time Test Comments Results Resul t Comments Source XR SHOULDER 2+ VW LEFT 2024-07-29 18:46:43 ORDERING PHYSICIAN: DONTA DELUNA HISTORY: ?pain TECHNIQUE:Three views of the left shoulder . Technical quality: Diagnostic. COMPARISON: None FINDINGS: There is no fracture or dislocation. ? ?[facility]able[id number] 01:51:42* Test Item Value Reference Range Interpretation Comme nts NA (test code = 3325796620) 138 mmol/L 135-145 K (test code = 3402280660) 3.6 mmol/L 3.5-5.0 CL (test code = 4169970230) 101 mmol/L 98-108 CO2 TOTAL (test code = 1209241033) 26 mmol/L 23-31 AGAP (test code = 5070753411) 11 2-16 BUN (test code = 8281007661) 7 mg/dL 7-23 GLUCOSE (test code = 9578801923) 98 mg/dL 70-110 CREATININE (test code = 2160-0) 0.84 mg/dL 0.60-1.25 TOTAL BILI (test code = 0537011700) 1.4 mg/dL 0.1-1.1 H CALCIUM (test code = 8020897957) 9.4 mg/dL 8.6-10.6 T PROTEIN (test code = 8836611566) 7.3 g/dL 6.3-8.2 ALBUMIN (test code = 9358136756) 4.6 g/dL 3.5-5.0 ALK PHOS (test code = 2437459221) 109 U/L 34-122 ALTv (test code = 1742-6) 18 U/L 5-50 AST(SGOT) (test code = 6627251367) 23 U/L 13-40 eGFR (test code = 61471-8) 127.2 mL/min/1.73m2 CKD-EPI eGFR (2020). Assuming creatinine has been stable day-to-day for at least three months, the eGFR indicates Category G1 (>= 90 mL/min/1.73 m2) Lab Interpretation (test code = 24454-9) [id number] 01:51:22* Test Item Value Reference Range Interpretation Comme nts CK (test code = 5131550843) 195 U/L 33-194 H Lab Interpretation (test cod e = 36973-7) Abnormal [facility] [id number] 01:40:20* Test Item Value Reference Range Interpretation [...] 33.7 g/dL 31.2-35.0 RDW-SD (test code = 61601-1) 44.1 fL 38.5-51.6 RDW-CV (test code = 788-0) 13.2 % 12.1-15.4 PLT (test code = 777-3) 266 150-328 MPV (test code = 61524-0) 10.2 fL 9.8-13.0 NRBC/100 WBC (test code = 7485812406) 0.0 0.0-10.0 NRBC x10^3 (test code = 0575692966) See_Comment [Automated message] The system which generated this result transmitted reference range: 10*3/?L. The reference range was not used to interpret this result as normal/abnormal. GRAN MAT (NEUT) % (test code = 770-8) 75.6 % IMM GRAN % (test code = 8884141635) 0.40 % LYMPH % (test code = 736-9) 12.1 % MONO % (test code = 5905-5) 10.5 % EOS % (test code = 713-8) 0.9 % BASO % (test code = 706-2) 0.5 % GRAN MAT x10^3(ANC) (test code = 9569302517) 10.09 10*3/uL 1.99-6.95 H IMM GRAN x10^3 (test code = 8536085259) 0.06 10*3/uL 0.00-0.06 LYMPH x10^3 (test code = 731-0) 1.61 10*3/uL 1.09-3.23 MONO x10^3 (test code = 742-7) 1.40 10*3/uL 0.36-1.02 H EOS x10^3 (test code = 711-2) 0.12 10*3/uL 0.06-0.53 BASO x10^3 (test code = 704-7) 0.07 10*3/uL 0.01-0.09 Lab Interpretation (test code = 94436-3) [facility]normal [facility] ([id number])2022-09-01 11:26:16* Test Item Value Reference Range Interpretation Comme nts NA (test code = 7218711111) 138 mmol/L 135-145 K (test code = 4835191395) 3.5 mmol/L 3.5-5.0 Slight hemolysis CL (test code = 6453186383) 110 mmol/L 98-108 H CO2 TOTAL (test code = 7888845073) 26 mmol/L 23-31 AGAP (test code = 1171494357) 2-16 BUN (test code = 3674186575) 9 mg/dL 7-23 Slight hemolysis GLUCOSE (test code = 8241641838) 99 mg/dL 70-110 CREATININE (test code = 6418227129) 0.73 mg/dL 0.60-1.25 TOTAL BILI (test code = 8545062491) 0.9 mg/dL 0.1-1.1 CALCIUM (test code = 8444140437) 8.2 mg/dL 8.6-10.6 L T PROTEIN (test code = 6838876210) 5.5 g/dL 6.3-8.2 L ALBUMIN (test code = 1120227119) 3.3 g/dL 3.5-5.0 L ALK PHOS (test code = 0152140426) 75 U/L 34-122 Slight hemolysis ALTv (test code = 1742-6) 16 U/L 5-50 AST(SGOT) (test code = 3481405648) 30 U/L 13-40 Slight hemolysis eGFR (test code = 0738466092) mL/min/1.73m2 KACI (test code = KACI) Association [...] imaging tests). Lab Interpretation (test code = 52449-4) Abnormal [facility] WITH [id number] 11:03:17* Test Item Value Reference Range Interpretation Comme nts WBC (test code = 6690-2) See_Comment [Automated [employer]] The system which generated this result transmitted reference range: 4.20 - 10.70 10*3/?L. The reference range was not used to interpret this result as normal/abnormal. RBC (test code = 789-8) See_Comment L [Automated [employer]] The system which generated this result transmitted [...] g/dL 31.2-35.0 H RDW-SD (test code = 19227-5) 41.7 fL 38.5-51.6 RDW-CV (test code = 788-0) 13.2 % 12.1-15.4 PLT (test code = 777-3) See_Comment [Automated [employer]] The system which generated this result transmitted reference range: 150 - 328 10*3/?L. The reference range was not used to interpret this result as normal/abnormal. MPV (test code = 53820-5) 11.9 fL 9.8-13.0 NRBC/100 WBC (test code = 8529634602) See_Comment [Automated [employer] ssage] The system which generated this result transmitted reference range: 0.0 - 10.0 /100 WBCs. The reference range was not used to interpret this result as normal/abnormal. NRBC x10^3 (test code = 6633085674) See_Comment [Automated [employer]] The system which generated this result transmitted reference range: 10*3/?L. The reference range was not used to interpret this result as normal/abnormal. GRAN MAT (NEUT) % (test code = 770-8) 62.3 % IMM GRAN % (test code = 5813741659) 0.20 % LYMPH % (test code = 736-9) 25.7 % MONO % (test code = 5905-5) 8.0 % EOS % (test code = 713-8) 3.4 % BASO % (test code = 706-2) 0.4 % GRAN MAT x10^3(ANC) (test code = 6754482115) 5.01 10*3/uL 1.99-6.95 IMM GRAN x10^3 (test code = 2098730727) 0.00-0.06 LYMPH x10^3 (test code = 731-0) 2.07 10*3/uL 1.09-3.23 MONO x10^3 (test code = 742-7) 0.64 10*3/uL 0.36-1.02 EOS x10^3 (test code = 711-2) 0.27 10*3/uL 0.06-0.53 BASO x10^3 (test code = 704-7) 0.03 10*3/uL 0.01-0.09 Lab Interpretation (test code = 07850-7) [facility] [id number] 17:58:42* Test Item Value Reference Range Interpretation Comme nts CK (test code = 0414623628) 180 U/L 33-194 Lab Interpretation (test cod e = 98990-7) Normal [facility] [id number] 11:09:00* Test Item Value Reference Range Interpretation Comments TROPONIN I (test code = 7396630086) 0.001 ng/mL See_Comment [Automated message] The system [...] of biotin. Lab Interpretation (test code = 68295-7) Normal [facility] CenterSALICYLATE2022-12-04 10:59:14 SALICYLATE<10mg/L111/01/2021 4:59 AM CSTUT LABORATORY SERVICESTherapeutic Range: ? Analgesic and Antipyretic Use ? 20-100 mg/L ? ? Anti- Inflammatory Use ? 100-250 mg/LToxic Range: ? Greater than 300 mg/LUnNacogdoches Medical CenterETHANOL2022-12-04 10:59:14ALCOHOL<10mg/dL08/31/2022 4:59 AM CSTUTMB LABORATORY SERVICESToxic Greater than or equal to 80 mg/dL. NOTE: Whole blood values are approximately 10% to 15% lower than serum and plasma.[facility] [id number] 10:59:09* Test Item Value Reference Range Interpretation Comme nts ACETAMINOP (test code = 7949897092) 10.0-30.0 L KACI (test code = KACI) Toxic: Greater mamie n 200 ug/mL @ 4 hour post ingestion or greater than 50 ug/mL @ 12 hour post ingestion Lab Interpretation (test code = 81394-3) Abnormal [facility] CenterMAGNESIUM2022-12-04 10:58:19* Test Item Value Reference Range Interpretation Comme nts MAGNESIUM (test code = 1626506311) 1.8 mg/dL 1.7-2.4 Lab Interpretation (test cod e = 24035-5) Normal [facility] CenterCOMP. METABOLIC PANEL (36573)2022-08-31 10:58:18* Test Item Value Reference Range Interpretation Comme nts NA (test code = 2325747723) 141 mmol/L 135-145 K (test code = 8883827997) 4.0 mmol/L 3.5-5.0 CL (test code = 9265347157) 110 mmol/L 98-108 H CO2 TOTAL (test code = 0339819592) 25 mmol/L 23-31 AGAP (test code = 1570504400) 2-16 BUN (test code = 1148415134) 5 mg/dL 7-23 L GLUCOSE (test code = 7811215633) 80 mg/dL 70-110 CREATININE (test code = 4112077196) 0.71 mg/dL 0.60-1.25 TOTAL BILI (test code = 5288549587) 0.5 mg/dL 0.1-1.1 CALCIUM (test code = 9218342171) 7.7 mg/dL 8.6-10.6 L T PROTEIN (test code = 4882207776) 5.2 g/dL 6.3-8.2 L ALBUMIN (test code = 8120045939) 3.3 g/dL 3.5-5.0 L ALK PHOS (test code = 5236827756) 71 U/L 34-122 ALTv (test code = 1742-6) 16 U/L 5-50 AST(SGOT) (test code = 8821015262) 23 U/L 13-40 eGFR (test code = 5529008010) mL/min/1.73m2 KACI (test code = KACI) Association [...] imaging tests). Lab Interpretation (test code = 17960-4) Abnormal [facility] WITH [id number] 09:52:32* Test Item Value Reference Range Interpretation [...] 33.8 g/dL 31.2-35.0 RDW-SD (test code = 30654-4) 41.1 fL 38.5-51.6 RDW-CV (test code = 788-0) 12.9 % 12.1-15.4 PLT (test code = 777-3) See_Comment [Automated message] The system which generated this result transmitted reference range: 150 - 328 10*3/?L. The reference range was not used to interpret this result as normal/abnormal. MPV (test code = 63865-1) 11.1 fL 9.8-13.0 NRBC/100 WBC (test code = 4246116357) See_Comment [Automated message] The system which generated this result transmitted reference range: 0.0 - 10.0 /100 WBCs. The reference range was not used to interpret this result as normal/abnormal. NRBC x10^3 (test code = 6301236543) See_Comment [Automated message] The system which generated this result transmitted reference range: 10*3/?L. The reference range was not used to interpret this result as normal/abnormal. GRAN MAT (NEUT) % (test code = 770-8) 90.1 % IMM GRAN % (test code = 4126014736) 0.40 % LYMPH % (test code = 736-9) 5.4 % MONO % (test code = 5905-5) 3.8 % EOS % (test code = 713-8) 0.1 % BASO % (test code = 706-2) 0.2 % GRAN MAT x10^3(ANC) (test code = 6063713790) 14.75 10*3/uL 1.99-6.95 H IMM GRAN x10^3 (test code = 8025711486) 0.06 10*3/uL 0.00-0.06 LYMPH x10^3 (test code = 731-0) 0.88 10*3/uL 1.09-3.23 L MONO x10^3 (test code = 742-7) 0.62 10*3/uL 0.36-1.02 EOS x10^3 (test code = 711-2) 0.06-0.53 L BASO x10^3 (test code = 704-7) 0.03 10*3/uL 0.01-0.09 Lab Interpretation (test code = 24008-3) Abnormal [facility] CenterAC Panel 20 + Lactic [id number] 09:16:12* Test Item Value Reference Range Interpretation Comme nts PH (test code = 2) 7.35-7.45 PCO2 (test code = 4431291966) See_Comment [Automated messa ge] The system which generated this result transmitted reference range: 35 - 45 mmHg. The reference range was not used to interpret this result as normal/abnormal. PO2 (test code = 2746338735) See_Comment H [Automated messa ge] The system which generated this result transmitted reference range: 80 - 100 mmHg. The reference range was not used to interpret this result as normal/abnormal. HCO3 (test code = 6642153357) See_Comment L [Automated messa ge] The system which generated this result transmitted reference range: 22 - 26 mEq/L. The reference range was not used to interpret this result as normal/abnormal. BE (test code = 8021522026) See_Comment L [Automated messa ge] The system which generated this result transmitted reference range: -3.0 - 3.0 mEq/L. The reference range was not used to interpret this result as normal/abnormal. THB (test code = 1683864806) 13.2 g/dL 13.5-18.0 L %O2HB (test code = 3461077945) 98.8 % 94.0-99.0 %COHB ART (test code = 2953976869) 0.3 % 0.0-1.5 %METHB ART (test code = 4997274948) 0.2 % 0.4-1.5 L VOL%O2 ART (test code = 7457228834) 18.8 % 15.0-23.0 NA (test code = 3487978609) 139 mmol/L 135-145 K+ (test code = 9622477265) 3.9 mmol/L 3.5-5.0 AC CA IONZ (test code = 1383395588) 4.60 mg/dL 4.50-5.30 GLUCOSE (test code = 5473013810) 88 mg/dL 70-110 LACTIC ACID (test code = 8434201771) 1.04 mmol/L 0.50-2.20 Lab Interpretation (test code = 50584-4) Abnormal [facility][H] Drug Screen Urine (9 Drugs)2019-07-20 [...] Negative Urine Propoxyphene Screen (test code = 81454-4) Negative Negative Urine Drug Screen Note (test [...] 50 ng/mLMethadone 300 ng/mLUrine alcohol 20 mg/dL [facility][H] Drug Screen Urine (9 Drugs)2019-02-24 13:44:01* [...] Negative Urine Propoxyphene Screen (test code = 77128-5) Negative Negative Urine Drug Screen Note (test [...] 50 ng/mLMethadone 300 ng/mLUrine alcohol 20 mg/dL [facility]"
--- NOTE | 2024-09-12 20:11 | EDPHYS ---
Physician Documentation [facility] Name: Chan Gale Age: 23 yrs Sex: Male : 2000 Arrival Date: 09/12/2024 Time: 19:53 Bed 6 Private MD: ED Physician Austin Banks HPI: 09/12 20:03 This 23 yrs old Male presents to ER via Unassigned with complaints of other . sp4 20:11 23-year-old male presents with complaint of possible overdose.. sp4 20:11 Patient states literally he took a bunch of Excedrin earlier because his [facility] would sp4 [facility] On presentation patient is very angry and irritable. On my entry to the room patient has refused all care and reported that he wants to walk out. Patient was informed that he is here to be helped by us. However if he wishes to walk out and refuse medical or psychiatric care he has right to do so. Patient then proceeded to walk out of the emergency room.. Historical: - Allergies: 20:10 No Known Allergies; bm8 - Home Meds: 20:10 Ativan 2 mg Oral tablet [Active]; gabapentin oral [Active]; Suboxone 8-2 mg sublingual bm8 film [Active]; Zyprexa Oral [Active]; - PMHx: 20:10 adhd; Anxiety; avoident restrictive food intact disorder; Bipolar disorder; Depression; bm8 drug abuse; - PSHx: 20:10 None; bm8 - Immunization history:: Adult Immunizations up to date. - Infectious Disease History:: Denies. - Social history:: Smoking status: Reported history of juuling and/or vaping. Patient uses alcohol, street drugs. - Family history:: not pertinent. ROS: 20:11 Constitutional: Negative for fever, chills, and weight loss, positive for reported sp4 overdose 20:11 All other systems are negative, Exam: 20:11 Constitutional: This is a well developed, well nourished patient who is awake, alert, sp4 Patient is quite angry and irritable. Head/Face: Normocephalic, atraumatic. Eyes: Pupils equal round and reactive to light, extra-ocular motions intact. Lids and lashes normal. Conjunctiva and sclera are not injected. Cornea within normal limits. Periorbital areas with no swelling, redness, or edema. ENT: Nares patent. No nasal discharge, no septal abnormalities noted. Tympanic membranes are normal and external auditory canals are clear. Oropharynx with no redness, swelling, or masses, exudates, or evidence of obstruction, uvula midline. Mucous membranes moist. Neck: Trachea midline, no thyromegaly or masses palpated, and no cervical lymphadenopathy. Supple, full range of motion without nuchal rigidity, or vertebral point tenderness. Chest/axilla: Normal chest wall appearance and motion. Nontender with no deformity. No lesions are appreciated. Cardiovascular: Regular rate and rhythm with a normal S1 and S2. No gallops, murmurs, or rubs. Normal PMI, no JVD. No pulse deficits. Respiratory: Lungs have equal breath sounds bilaterally, clear to auscultation and percussion. No rales, rhonchi or wheezes noted. No increased work of breathing, no retractions or nasal flaring. Abdomen/GI: Soft, with normal bowel sounds. No distension or tympany. No guarding or rebound. No evidence of tenderness throughout. Back: No spinal tenderness. No costovertebral tenderness. Skin: Warm, dry with normal turgor. Normal color with no rashes, no lesions, and no evidence of cellulitis. MS/ Extremity: Pulses equal, no cyanosis. Neurovascular intact. Full, normal range of motion. Neuro: Awake and alert, GCS 15, oriented to person, place, patient is very angry and irritable, patient refused medical care walked out in the middle of exam Psych: Awake, alert, with orientation to person, place and time. Behavior, mood, and affect are within normal limits Vital Signs: 19:55 BP 104 / 84; Pulse 88; Resp 18; Temp 97.5; Pulse Ox 100% ; Weight 58.97 kg; Height 5 bm8 ft. 8 in. ; Pain 10/10; 19:55 Body Mass Index 19.77 (58.97 kg, 172.72 cm) bm8 19:55 Pain Scale: Adult bm8 [place] Coma Score: 20:14 Eye Response: spontaneous(4). Motor Response: obeys commands(6). Verbal Response: bm8 oriented(5). Total: 15. MDM: 20:08 Medical Screening Exam initiated sp4 20:11 Differential Diagnosis altered mental status, sepsis, flu, Overdose of medication. Data sp4 reviewed: vital signs, nurses notes, EMS record, old medical records. ED course: Patient was offered medical assessment and evaluation in the emergency room. Also was offered medical stabilization. Patient became more irritable and decided to refuse medical care and then walked out of the emergency department.. At this time we believe the patient is mentally stable to make his own decisions and we cannot force medical assessment onto the patient. Vital signs are stable. Patient was allowed to walk out. Will provide an informed discharge. . Administered Medications: No medications were administered Disposition Summary: 09/12/24 20:11 Discharge Ordered Notes: Location: Home sp4 Problem: new sp4 Symptoms: have improved sp4 Condition: Stable sp4 Diagnosis - Irritability and anger sp4 - Reported Excess Intake of Excedrin sp4 Followup: sp4 - With: Private Physician - When: As needed - Reason: Recheck today's complaints Discharge Instructions: - Discharge Summary Sheet sp4 - Managing Anger, Adult sp4 Forms: - Patient Portal Instructions sp4 Signatures: Austin Banks MD MD sp4 Roly Davis, RN RN bm8
--- NOTE | 2024-09-12 20:11 | ER ---
Nurse's Notes [facility] Name: Chan Gale Age: 23 yrs Sex: Male : 2000 Arrival Date: 09/12/2024 Time: 19:53 Bed 6 Private MD: Diagnosis: Irritability and anger;Reported Excess Intake of Excedrin Presentation: 09/12 19:55 Chief complaint: Patient states: I took a bunch of Excedrin pm to piss my dad off bm8 because he would not take me to [place] like I wanted. I feel very nauseous. 19:55 Coronavirus screen: At this time, the client does not indicate any symptoms associated bm8 with coronavirus-19. Ebola Screen: Patient negative for fever greater than or equal to 101.5 degrees Fahrenheit, and additional compatible Ebola Virus Disease symptoms Patient denies exposure to infectious person. Patient denies travel to an Ebola-affected area in the 21 days before illness onset. No symptoms or risks identified at this time. Initial Sepsis Screen: Does the patient meet any 2 criteria? No. Patient's initial sepsis screen is negative. Does the patient have a suspected source of infection? No. Patient's initial sepsis screen is negative. Risk Assessment: Do you want to hurt yourself or someone else? Patient reports no desire to harm self or others. Onset of symptoms is unknown. 19:55 Method Of Arrival: EMS: [facility] bm8 19:55 Acuity: SIRISHA 3 bm8 Triage Assessment: 19:55 General: Appears distressed, comfortable, Behavior is appropriate for age, agitated, bm8 anxious. Pain: Complains of pain in abdomen. 19:55 EENT: No deficits noted. No signs and/or symptoms were reported regarding the EENT bm8 system. Neuro: No deficits noted. Level of Consciousness is awake, alert, obeys commands, Oriented to person, place, time, situation, Appropriate for age Mash Grinder are equal bilaterally Moves all extremities. Full function Gait is steady, Speech is normal, Facial symmetry appears normal, Pupils are PERRLA, Pupil Size: 3 mm Intact. Cardiovascular: Denies chest pain, Heart tones S1 S2 Capillary refill < 3 seconds in bilateral fingers toes Patient's skin is warm and dry. Rhythm is sinus rhythm. Respiratory: No deficits noted. Airway is patent Trachea midline Respiratory effort is even, unlabored, Respiratory pattern is regular, symmetrical, Breath sounds are clear bilaterally. GI: Abdomen is flat, non-distended, Bowel sounds present X 4 quads. Reports nausea, Pain is 10 out of 10 on a pain scale. vomiting. : No signs and/or symptoms were reported regarding the genitourinary system. Derm: No signs and/or symptoms reported regarding the dermatologic system. Musculoskeletal: No signs and/or symptoms reported regarding the musculoskeletal system. Historical: - Allergies: 20:10 No Known Allergies; bm8 - Home Meds: 20:10 Ativan 2 mg Oral tablet [Active]; gabapentin oral [Active]; Suboxone 8-2 mg sublingual bm8 film [Active]; Zyprexa Oral [Active]; - PMHx: 20:10 adhd; Anxiety; avoident restrictive food intact disorder; Bipolar disorder; Depression; bm8 drug abuse; - PSHx: 20:10 None; bm8 - Immunization history:: Adult Immunizations up to date. - Infectious Disease History:: Denies. - Social history:: Smoking status: Reported history of juuling and/or vaping. Patient uses alcohol, street drugs. - Family history:: not pertinent. Screenin:14 [facility] ED Fall Risk Assessment (Adult) History of falling in the last 3 months, bm8 including since admission No falls in past 3 months (0 pts) Confusion or Disorientation No (0 pts) Intoxicated or Sedated No (0 pts) Impaired Gait No (0 pts) Mobility Assist Device Used No (0 pt) Altered Elimination No (0 pt) Score/Fall Risk Level 0 - 2 = Low Risk Oriented to surroundings, Maintained a safe environment, Educated pt \\T\\ family on fall prevention, incl call for assistance when getting out of bed, Assessed \\T\\ reinforced patient's understanding of fall precautions, Hourly rounding (assess needs \\T\\ fall precautionary measures) done, Used ambulatory aids as needed (educated on \\T\\ assisted with), Used gait belt as appropriate. Abuse screen: Denies threats or abuse. Nutritional screening: No deficits noted. Tuberculosis screening: No symptoms or risk factors identified. Assessment: 20:14 Reassessment: pt is refusing to allow any blood work, EKG or further vital signs to be bm8 taken and wants to leave. made aware and pt has been discharged with instruction to return if symptoms worsen. Overdose: 20:16 [place] Suicide Severity Screening: "In the past month, have you wished you were bm8 or wished you could go to sleep and not wake up?" Patient responds "no." "In the past month, have you actually had any thoughts of killing yourself?" Patient responds "no." "In your lifetime, have you ever done anything, started to do anything, or prepared to do anything to end your life?" Patient responds "no." pt denies any thoughts of suicide and just wanted to get his dad's attention. pt denies any previous thoughts of suicide in life time. 20:17 [place] Suicide Severity Screening: "In the past month, have you wished you were bm8 or wished you could go to sleep and not wake up?" Patient responds "no." "In the past month, have you actually had any thoughts of killing yourself?" Patient responds "no.". Vital Signs: 19:55 BP 104 / 84; Pulse 88; Resp 18; Temp 97.5; Pulse Ox 100% ; Weight 58.97 kg; Height 5 bm8 ft. 8 in. ; Pain 10/10; 19:55 Body Mass Index 19.77 (58.97 kg, 172.72 cm) bm8 19:55 Pain Scale: Adult bm8 [place] Coma Score: 20:14 Eye Response: spontaneous(4). Motor Response: obeys commands(6). Verbal Response: bm8 oriented(5). Total: 15. ED Course: 19:55 Patient arrived in ED. rv1 19:55 Arm band placed on left wrist. bm8 20:02 Austin Banks MD is Attending Physician. sp4 20:08 Roly Davis, RN is Primary Nurse. bm8 20:10 Triage completed. bm8 20:14 Patient has correct armband on for positive identification. Bed in low position. Call bm8 light in reach. Provided Education on: post er care. 20:14 No provider procedures requiring assistance completed. Patient did not have IV access bm8 during this emergency room visit. Administered Medications: No medications were administered Medication: 20:14 VIS not applicable for this client. bm8 Outcome: 20:11 Discharge ordered by . sp4 20:14 Discharged to home ambulatory, bm8 20:14 Condition: unchanged 20:14 Discharge instructions given to patient, Instructed on discharge instructions, follow up and referral plans. Demonstrated understanding of instructions, follow-up care, 20:17 Patient left the ED. bm8 Signatures: Brittaney Bolaños rv1 Austin Banks MD MD sp4 Roly Davis RN RN bm8
[2024-09-12 20:56] VITALS: BP 104/84; TEMP 97.5; O2SAT 100
== END 2024-09-12 20:17 | disposition home or self-care (01) ==
LOC: ER 19:53
DX: R45.4 Irritability and anger (principal); F31.9 Bipolar disorder, unspecified
CPT/HCPCS: 99283

== ENCOUNTER 2024-09-29 09:10 | Emergency (ER) | payer OTHER ==
--- OUTSIDE RECORDS SUMMARY | 2024-09-29 09:14 | XMS REPORT | Continuity of Care Document ---
Author Name Unknown Address [address] [place] [address] [facility] Address [address] [place] [address] Care Team Providers Care Flocculator Operator Name Role Phone KENYA FUENTES Primary Care Physician Unavailab margarita [facility] Attending Clinician Unavailabdoulaye e LAB90 Attending Clinician Unavailable ROGERS BATES Attending Clinician Unavailable ALEJANDRA WESLEY Attending Clinician Unavailable NICK GAINES Attending Clinician Unavailable DONTA DELUNA Attending Clinician Unavailable Donta Cope Attending Clinician [phone] VERNON SAMANIEGO Attending Clinician UnavailIHSAN Pineda Attending Clinician UnavailTRINIDAD Tan Attending Clinician Unavailab TRINIDAD Ponce Attending Clinician UnavailTrinidad Sandhu DO Attending Clinician [phone] LAB47 Attending Clinician Unavailable ALLEN CANNON Attending Clinician Unavailable KENYA FUENTES Attending Clinician Unavailable DONTA HAYNES Attending Clinician UnavailDonta Raphael MD Attending Clinician [phone] CRISTINA AZUL Attending Clinician UnavailKenya Lazcano Attending Clinician [phone] Doctor Unassigned, [place] Attending Clinician U Marilu Bingham LVN Attending Clinician MICHAEL ASHRAF Attending Clinician Unavailable Campbell Guerrero MD Attending Clinician [phone] Ayaan Yung DO Attending Clinician [phone] Michael Ashraf DO Attending Clinician [phone] Jorge PALACIOS, Kim Alicea Attending Clinician KIM PATEL Attending Clinician UnavailJAZMYN Spence M.D. Attending Clinician UnavailCHANCE Lima APRN Attending Clinician Un available DONTA DELUNA Admitting Clinician Unavailable KENYA FUENTES Admitting Clinician Unavailable CAMPBELL GUERRERO Admitting Clinician Unava ilable Ayaan Yung DO Admitting Clinician [phone] Payers Payer Name Policy Type Policy Number Effective Date Expirati on Date Source [facility] TAMAYO COPAY FOCUS 9 [id number] 2023 00:00:00 [facility] [id number] 2023 00:00:00 [facility] [id number] 2018 00:00:00 Problems Condition Name Condition Details Condition Category Status Onset Date Resolution Date Last Treatment Date Treating Clinician Comments Source Bipolar affective disorder, remission status unspecifie d (multi HCC) Bipolar affective disorder, remission status unspecifie d (multi HCC) Disease Active 2023-09 00:00: 00 Whitney sierra Need for hepatitis C screening test Need for hepatitis C screening test Disease Active 10-20 00:00: 00 [facility] Low bone density for age Low bone density for age Disease Active 10-20 00:00: 00 Whitney sierra Encounter to establish care Encounter to establish care Disease Active 2021-09 00:00: 00 [facility] RLS (restless legs syndrome) RLS (restless legs syndrome) Disease Active 2021-09 00:00: 00 [facility] BMI less than 19,adult BMI less than 19,adult Disease Active 2021-09 00:00: 00 [facility] Encounter to establish care Encounter to establish care Disease Active 2021-09 00:00: 00 [facility] Drug overdose of undetermin ed intent, initial encounter Drug overdose of undetermin ed intent, initial encounter Disease Active 2021-09 00:00: 00 [facility] Bipolar 1 disorder, mixed anxiety-de pression, moderate Bipolar 1 disorder, mixed anxiety-de pression, moderate Disease Recurre nce 02-23 00:00: 00 [facility] Anxiety Anxiety Disease Active 02-23 00:00: 00 [facility] Underweigh t in childhood with BMI < 5th percentile Underweigh t in childhood with BMI < 5th percentile Disease Active 2017-09 00:00: 00 [facility] 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 Disease Active 04-19 00:00: 00 [facility] 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 Disease Active 04-19 00:00: 00 Whitney sierra Nicotine abuse Nicotine abuse Disease Active 01-10 00:00: 00 [facility] Marijuana abuse, continuous Marijuana abuse, continuous Disease Active 01-10 00:00: 00 [facility] Attention deficit hyperactiv ity disorder (ADHD) Attention deficit hyperactiv ity disorder (ADHD) Disease Recurre nce 2006-09 00:00: 00 Whitney sierra Major depressive disorder with current active episode, [...] 2017-09 00:00: 00 2019-08-18 00:00:00 2019-08-18 10:02:15 [facility] Bipolar 2 disorder, major depressive episode Bipolar 2 disorder, major depressive episode Disease Resolve d 2017-09 00:00: 00 2019-02-23 00:00:00 2019-02-23 15:24:57 [facility] Episode of recurrent major depressive disorder Episode of recurrent major depressive disorder Disease Resolve d 04-19 00:00: 00 2019-02-23 00:00:00 2019-02-23 15:25:05 [facility] Esophageal reflux Esophageal reflux Disease Resolve d 2008-09 00:00: 00 2016-06-15 00:00:00 2016-06-15 20:21:02 [facility] SENSORY DISORDER SENSORY DISORDER Disease Resolve d 2006-09 00:00: 00 2016-06-15 00:00:00 2016-06-15 20:21:09 [facility] Bipolar disorder Bipolar disorder Disease Resolve d 2006-09 00:00: 00 2009-06-29 00:00:00 2022-04-13 00:12:08 [facility] Nonorganic enuresis Nonorganic enuresis Disease Resolve d 2006-09 00:00: 00 2009-05-18 00:00:00 2009-05-18 17:51:16 [facility] ASPERGER - continue to evaluate for ASPERGER - continue to evaluate for Disease Resolve d 2006-09 00:00: 00 2007-10-20 00:00:00 2007-10-20 16:52:33 [facility] Allergies, Adverse Reactions, Alerts Allergy Name Allergy Type Status Severity Reaction(s) Onset Date Inactive Date Treating Clinician Comments Source NO KNOWN ALLERGIE S Drug Class Active [facility] Social History Social Habit Start Date Stop Date Quantity Comments Source [facility] intake 2024-09-15 00:00:00 2024-09-15 00:00:00 Ex-drinker (finding) Whitney Gomes - External Alcohol Comment 2024-09-15 00:00:00 2024-09-15 00:00:00 socially Whitney Rahman External Sex 2023-10-24 09:41:35 2023-10-24 09:41:35 Male (finding) Whitney Gomes - External Exposure to SARS-CoV-2 (event) 2022-11-18 00:00:00 2022-11-28 11:48:00 Not sure [facility] Alcohol intake 2022-10-20 00:00:00 2022-10-20 00:00:00 Current non-drinker of alcohol (finding) [facility] Tobacco Comment 2022-09-05 00:00:00 2022-09-05 00:00:00 Vapes [facility] Tobacco use and exposure 2022-09-05 00:00:00 2022-09-05 00:00:00 Smokeless tobacco non-user [facility] Cigarettes smoked current (pack per day) - Reported 2022-09-05 00:00:00 2022-09-05 00:00:00 [facility] History of Social function 2019-04-07 00:00:00 2019-04-07 00:00:00 [facility] History of tobacco use 2018-07-08 00:00:00 Cigarette Smoker [facility] Sex assigned at 2002 00:00:00 2000 00:00:00 Whitney Bairdricotito - External Smoking Status Start Date Stop Date Source Tobacco smoking consumption unknown Whitney Gomes - External Never smoked tobacco Whitney Bairdricotito - External Smokes tobacco daily 2022-09-05 00:00:00 [facility] Ex-smoker 2022-09-01 00:00:00 2022-09-01 00:00:00 [facility] Medications Ordered Medication Name Filled Medication Name Start Date Stop Date Current Medication? Ordering Clinician Indication Dosage Frequency Signature (SIG) Comments Components Source Gabapentin 600 MG oral Tablet 2023-09 11:00: 30 09-15 00:00 :00 No [id number] 600mg Q.25D Take 1 tablet (600 mg total) by mouth 4 times daily as needed. Whitney sierra Paroxetine HCl 30 MG oral Tablet 2023-09 10:36: 06 Yes [id number] 30mg Take 1 tablet (30 mg total) by mouth after breakfast and after evening meal. Whitney sierra Lorazepam 1 MG oral Tablet 2023-09 10:35: 13 Yes [id number] 1mg Q.25D Take 1 tablet (1 mg total) by mouth every 6 hours as needed for anxiety. Whitney sierra Olanzapine (ZyPREXA) 15 MG oral Tablet 2023-09 10:35: 13 Yes [id number] QD Take by mouth daily. Whitney sierra Gabapentin 300 MG oral Capsule 2023-09 00:00: 00 Yes [id number] 300mg Q.[id number] 3D Take 1 capsule (300 mg total) by mouth 3 times daily. Whitney sierra Gabapentin 600 MG oral Tablet 2023-09 00:00: 00 09-15 00:00 :00 No [id number] 300mg Q.[id number] 3D Take 0.5 tablets (300 mg total) by mouth 3 times daily. Whitney sierra ketorolac (TORADOL) injection 60 mg 2023-09 17:30: 00 07-29 17:31 :00 No 60mg 60 mg, Intramuscu lar, ONCE, 1 dose, On Thu07/29/24 at 1230, Routine [facility] Gabapentin 100 MG oral Capsule 2023-09 00:00: 00 09-15 00:00 :00 No TAKE ONE (1) CAPSULE(S) BY MOUTH IN THE MONRING, AT NOON, AND IN THE EVENING. Whitney sierra NaCl 0.9% (NS) bolus infusion 2,000 mL 06-07 02:00: 00 06-07 03:10 :00 No 2000mL at 999 mL/hr, 2,000 mL, IV Infusion, ONCE, 1 dose, On Thu06/06/24 at 2100, MARIBEL [facility] hydrOXYzine (ATARAX) tablet 25 mg 06-07 01:45: 00 06-07 02:06 :00 No 25mg 25 mg, Oral, ONCE, 1 dose, On 06/06/24 at 2045, MARIBEL [facility] ondansetron (ZOFRAN) 4 mg tablet 12-02 00:00: 00 12-13 04:59 :00 No [id number] 4mg Take 1 tablet by mouth every 8 (eight) hours as needed for Nausea and Vomiting (N/V) for up to 10 days. [facility] OXcarbazepi ne 600 mg tablet 2021-09 14:31: 18 09-05 00:00 :00 No 600mg Take 600 mg by mouth 2 (two) times daily. [facility] LORazepam 1 mg Cp24 2021-09 14:27: 07 09-05 00:00 :00 No 1mg Take 1 mg by mouth 2 (two) times daily. [facility] olanzapine (ZYPREXA ORAL) 2021-09 14:26: 27 Yes Take by mouth 2 (two) times daily. [facility] gabapentin 600 mg tablet 2021-09 14:26: 27 Yes 600mg Take 600 mg by mouth in the morning and 600 mg at noon and 600 mg in the evening. [facility] SERTraline 100 mg tablet 2021-09 14:19: 22 09-05 00:00 :00 No 100mg Take 100 mg by mouth daily. [facility] nicotine (NICODERM) 21 mg/24 hr patch 1 Patch 2021-09 19:45: 00 Yes 1{patch } 1 Patch, Topical, Administer over 24 Hours, Q24H, First dose on Thu09/02/22 at 1345, Until Discontinu ed, Routine [facility] hydrOXYzine (ATARAX) tablet 10 mg 2021-09 19:30: 00 09-02 18:49 :00 No 10mg 10 mg, Oral, ONCE, 1 dose, On Thu09/02/22 at 1330, Routine [facility] gabapentin 600 mg tablet 2021-09 17:34: 50 Yes 600mg Take 600 mg by mouth in the morning and 600 mg at noon and 600 mg in the evening. [facility] OXcarbazepi ne 600 mg tablet 2021-09 15:34: 48 Yes 600mg Take 600 mg by mouth 2 (two) times daily. [facility] SERTraline 100 mg tablet 2021-09 15:34: 48 Yes 100mg Take 100 mg by mouth daily. [facility] olanzapine (ZYPREXA ORAL) 2021-09 15:34: 48 Yes Take by mouth 2 (two) times daily. [facility] LORazepam 1 mg Cp24 2021-09 15:34: 48 Yes 1mg Take 1 mg by mouth 2 (two) times daily. [facility] gabapentin 600 mg tablet 2021-09 15:34: 48 Yes 600mg Take 600 mg by mouth in the morning and 600 mg at noon and 600 mg in the evening. [facility] LORazepam (ATIVAN) tablet 1 mg 2021-09 15:00: 00 Yes 1mg 1 mg, Oral, QAM, First dose on Thu09/02/22 at 0900, Until Discontinu ed, Routine [facility] OLANZapine (ZyPREXA) tablet 15 mg 2021-09 03:00: 00 Yes 15mg 15 mg, Oral, QHS, First dose on Thu09/01/22 at 2100, Until Discontinu ed, [facility] PAR[facility] (PAXIL[facility] 20 mg 2021-09 03:00: 00 Yes 20mg 20 mg, Oral, QHS, First dose on Thu09/01/22 at 2100, Until Discontinu ed, Routine [facility] gabapentin (NEURONTIN) tablet 600 mg 2021-09 02:00: 00 Yes 600mg 600 mg, Oral, TID, First dose on Thu09/01/22 at 2000, Until Discontinu ed, Routine [facility] acetaminoph en (TYLENOL) tablet 325 mg 2021-09 23:49: 00 09-02 00:20 :00 No 325mg 325 mg, Oral, ONCE, 1 dose, On Thu09/01/22 at 1800, Routine [facility] clonazePAM (KLONOPIN) tablet 1 mg 2021-09 16:15: 00 Yes 1mg 1 mg, Oral, Q8H, First dose (after last modificati on) on Thu09/01/22 at 1015, Until Discontinu ed, Routine [facility] ketamine (KETALAR) injection 50 mg 2021-09 23:30: 00 08-31 07:04 :00 No 50mg 50 mg, Slow IV Push, ONCE, 1 dose, On Thu08/31/22 at 1730, Routine [facility] clonazePAM 0.1 mg/mL oral suspension 1 mg 2021-09 20:00: 00 09-01 14:29 :11 No 1mg 1 mg, Oral, TID, First dose on Thu08/31/22 at 1400, Until Discontinu ed, Routine [facility] midazolam (VERSED) STD 50mg in [...] at maximum allowed dose, contact prescriber .
[facility] enoxaparin (LOVENOX) injection 40 mg 2021-09 15:00: 00 Yes 40mg 40 mg, Subcutaneo us, DAILY, First dose on Thu08/31/22 at 0900, Until Discontinu ed, Routine [facility] dexMEDEtomi dine 200 mcg in 0.9 % NaCl 50 mL (PRECEDEX) RTU IV infusion 2021-09 14:33: 19 09-02 00:39 :35 No .2ug/kg /h 0.2-1.5 mcg/kg/hr ?61 kg (3.05-22.8 75 mL/hr, rounded to 3.05-22.88 mL/hr), IV Infusion, TITRATE, Sedation-R ASS score (0 to -1), Starting on [place] 08/31/22 at 0833
In itiate infusion at 0.2 mcg/kg/hr and titrate by 0.1 mcg/kg/hr every 30 minutes to goal sedation score. Maximum dose = 1.5 mcg/kg/hr. If goal not maintained at maximum allowed dose, contact prescriber .
[facility] fentaNYL PF (SUBLIMAZE) STD 2,500 mcg in NaCl 0.9% (NS) 250 mL infusion RTU 2021-09 08:03: 47 09-01 11:18 :51 No 25ug/h 25-200 mcg/hr (2.5-20 mL/hr), IV Infusion, TITRATE, CPOT/Pain Scale Goals Determined by Provider, Starting on [place] 08/31/22 at 0203
In itiate infusion at 25 mcg/hr. Titrate by 25 mcg/hr every 1 minute to 15 minutes to identified goal pain and/or sedation scores. Maximum dose = 200 mcg/hr. If goal not maintained at maximum allowed dose, contact prescriber .
[facility] FENTanyl PF (SUBLIMAZE (PF)) injection 50 mcg 2021-09 08:00: 00 08-31 07:14 :00 No 50ug 50 mcg, Slow IV Push, ONCE, 1 dose, On [place] 08/31/22 at 0200, Routine [facility] propofoL IV infusion 2021-09 07:24: 17 08-31 07:09 :53 No 5ug/kg/ min 5-50 mcg/kg/min ?61 kg (1.83-18.3 mL/hr), IV Infusion, TITRATE, Sedation-R ASS score (0 to -1), Starting on [place] 08/31/22 at 0124
In itiate infusion at 5 mcg/kg/min and titrate by 5 mcg/kg/min every 30 seconds to 10 minutes to goal sedation score. Maximum dose = 50 mcg/kg/min . If goal not maintained at maximum allowed dose, contact prescriber . &nbs p;Tubing and unused portions of vials should be discarded after 12 hours.
[facility] lactated ringers IV infusion 1,000 mL 2021-09 07:15: 00 08-31 07:00 :00 No 1000mL at 999 mL/hr, 1,000 mL, Intravenou s, ONCE, 1 dose, On [place] 08/31/22 at 0115, Routine [facility] midazolam (VERSED) STD 50mg in NaCl 0.9% (NS) 50 mL infusion RTU 2021-09 06:26: 10 08-31 16:14 :53 No 1mg/h 1-10 mg/hr (1-10 mL/hr), IV Infusion, TITRATE, Sedation-R ASS score (0 to -1), Starting on [place] 08/31/22 at 0026
In itiate infusion at 1 mg/hr and titrate by 1 mg/hr every 3 minutes to 10 minutes to goal sedation score. Maximum dose = 10 mg/hr.&nbs p; If goal not maintained at maximum allowed dose, contact prescriber .
[facility] gabapentin 300 mg/6 mL (6 mL) solution 2021-09 23:09: 11 08-30 00:00 :00 No Take by mouth 2 (two) times daily. prescribed at [facility] no summer 2018 [facility] PARoxetine 20 mg tablet 2021-09 00:00: 00 Yes 20mg Take 20 mg by mouth in the morning. [facility] LORazepam 1 mg tablet 2021-09 00:00: 00 Yes 1mg Take 1 mg by mouth in the morning. [facility] SERTraline 100 mg tablet 10-22 18:52: 12 Yes 100mg Take 100 mg by mouth daily. Prescribed by [facility] - Apr 2019 [facility] olanzapine (ZYPREXA ORAL) 10-22 18:52: 09 Yes Take by mouth 2 (two) times daily. Prescribed by [facility] Apr 2019 [facility] gabapentin 300 mg/6 mL (6 mL) solution 10-22 18:52: 07 Yes Take by mouth 2 (two) times daily. prescribed at [facility] no summer 2018 [facility] OXcarbazepi ne (TRILEPTAL) 600 mg tablet 10-22 18:52: 06 Yes 600mg Take 600 mg by mouth 2 (two) times daily. [facility] Sertraline HCl - 50 [...] (1) TABLET(S) BY MOUTH TWICE A DAY. [facility] busPIRone 15 mg tablet 03-03 00:00: 00 Yes [id number] 15mg Take 1 tablet by mouth 2 (two) times daily. [facility] DULoxetine 60 mg capsule 03-01 00:00: 00 Yes [id number] 60mg Take 1 capsule by mouth daily. [facility] DULoxetine 30 mg capsule 03-01 00:00: 00 Yes [id number] 30mg Take 1 capsule by mouth daily. [facility] OXcarbazepi ne (TRILEPTAL) 600 mg tablet 02-23 19:48: 44 Yes 600mg Take 600 mg by mouth 2 (two) times daily. [facility] traZODONE 50 mg tablet 02-23 00:00: 00 Yes [id number] 25mg Take 0.5 tablets by mouth 2 (two) times daily. [facility] Multi-Vitam in TABS Multi-Vitam in TABS Yes M.A. [facility] Ordered Immunization Name Filled Immunization Name Date Status Comments Source Gardasil 9 Intramuscular Suspension 2018-05-25 00:00:00 Completed [facility] Meningococcal, MCV4, unspecified conjugate formulation(groups A, C, Y and W-135) 2018-05-25 00:00:00 Completed [facility] Boostrix 5-2.5-18.5 Intramuscular Suspension 2018-05-21 00:00:00 Completed [facility] influenza virus vaccine, unspecified formulation 2017-09-03 00:00:00 Completed [facility] influenza virus vaccine, unspecified formulation 2016-07-01 00:00:00 Completed [facility] FluMist Quadrivalent Nasal Suspension 2015-08-06 00:00:00 Completed [facility] Boostrix 5-2.5-18.5 Intramuscular Suspension 2014-12-28 00:00:00 Completed [facility] Meningococcal, MCV4, unspecified conjugate formulation(groups A, C, Y and W-135) 2014-12-28 00:00:00 Completed [facility] influenza virus vaccine, unspecified formulation 2014-06-23 00:00:00 Completed [facility] Gardasil Intramuscular Suspension 2014-05-25 00:00:00 Completed [facility] Boostrix 5-2.5-18.5 Intramuscular Suspension 2014-05-25 00:00:00 Completed [facility] Meningococcal, MCV4, unspecified conjugate formulation(groups A, C, Y and W-135) 2014-05-25 00:00:00 Completed [facility] TDAP 2014-05-25 00:00:00 Completed [facility] Meningococcal Polysaccharide (groups A, C, Y and W-135) conjugate vaccine (MCV4P) 2014-05-25 00:00:00 Completed [facility] HPV 2014-05-25 00:00:00 Completed [facility] TDAP 2014-05-25 00:00:00 Completed [facility] Meningococcal Polysaccharide (groups A, C, Y and W-135) conjugate vaccine (MCV4P) 2014-05-25 00:00:00 Completed [facility] HPV 2014-05-25 00:00:00 Completed [facility] TDAP 2014-05-25 00:00:00 Completed [facility] Meningococcal Polysaccharide (groups A, C, Y and W-135) conjugate vaccine (MCV4P) 2014-05-25 00:00:00 Completed [facility] HPV 2014-05-25 00:00:00 Completed [facility] TDAP 2014-05-25 00:00:00 Completed [facility] Meningococcal Polysaccharide (groups A, C, Y and W-135) conjugate vaccine (MCV4P) 2014-05-25 00:00:00 Completed [facility] HPV 2014-05-25 00:00:00 Completed [facility] TDAP 2014-05-25 00:00:00 Completed [facility] Meningococcal Polysaccharide (groups A, C, Y and W-135) conjugate vaccine (MCV4P) 2014-05-25 00:00:00 Completed [facility] Tdap 2014-05-25 00:00:00 Completed [facility] HPV 2014-05-25 00:00:00 Completed [facility] Meningococcal Polysaccharide (groups A, C, Y and W-135) conjugate vaccine (MCV4P) 2014-05-25 00:00:00 Completed [facility] HPV 2014-05-25 00:00:00 Completed [facility] TDAP 2014-05-25 00:00:00 Completed [facility] Meningococcal Polysaccharide (groups A, C, Y and W-135) conjugate vaccine (MCV4P) 2014-05-25 00:00:00 Completed [facility] HPV 2014-05-25 00:00:00 Completed [facility] TDAP 2014-05-25 00:00:00 Completed [facility] Meningococcal Polysaccharide (groups A, C, Y and W-135) conjugate vaccine (MCV4P) 2014-05-25 00:00:00 Completed [facility] HPV 2014-05-25 00:00:00 Completed [facility] TDAP 2014-05-25 00:00:00 Completed [facility] Meningococcal Polysaccharide (groups A, C, Y and W-135) conjugate vaccine (MCV4P) 2014-05-25 00:00:00 Completed [facility] HPV 2014-05-25 00:00:00 Completed [facility] TDAP 2014-05-25 00:00:00 Completed [facility] Meningococcal Polysaccharide (groups A, C, Y and W-135) conjugate vaccine (MCV4P) 2014-05-25 00:00:00 Completed [facility] HPV 2014-05-25 00:00:00 Completed [facility] TDAP 2014-05-25 00:00:00 Completed [facility] Meningococcal Polysaccharide (groups A, C, Y and W-135) conjugate vaccine (MCV4P) 2014-05-25 00:00:00 Completed [facility] HPV 2014-05-25 00:00:00 Completed [facility] Tdap 2014-05-25 00:00:00 Completed [facility] TDAP 2014-05-25 00:00:00 Completed [facility] Meningococcal Polysaccharide (groups A, C, Y and W-135) conjugate vaccine (MCV4P) 2014-05-25 00:00:00 Completed [facility] HPV 2014-05-25 00:00:00 Completed [facility] Meningococcal Polysaccharide (groups A, C, Y and W-135) conjugate vaccine (MCV4P) 2014-05-25 00:00:00 Completed [facility] HPV 2014-05-25 00:00:00 Completed [facility] TDAP 2014-05-25 00:00:00 Completed [facility] Meningococcal Polysaccharide (groups A, C, Y and W-135) conjugate vaccine (MCV4P) 2014-05-25 00:00:00 Completed [facility] HPV 2014-05-25 00:00:00 Completed [facility] TDAP 2014-05-25 00:00:00 Completed [facility] Meningococcal Polysaccharide (groups A, C, Y and W-135) conjugate vaccine (MCV4P) 2014-05-25 00:00:00 Completed [facility] [facility] 2014-05-25 00:00:00 Completed [facility] TDAP 2014-05-25 00:00:00 Completed [facility] Meningococcal Polysaccharide (groups A, C, Y and W-135) conjugate vaccine (MCV4P) 2014-05-25 00:00:00 Completed [facility] HPV 2014-05-25 00:00:00 Completed [facility] TDAP 2014-05-25 00:00:00 Completed [facility] Meningococcal Polysaccharide (groups A, C, Y and W-135) conjugate vaccine (MCV4P) 2014-05-25 00:00:00 Completed HPV 2014-05-25 00:00:00 Completed TDAP 2014-05-25 00:00:00 Completed [facility] Meningococcal Polysaccharide (groups A, C, Y and W-135) conjugate vaccine (MCV4P) 2014-05-25 00:00:00 Completed [facility] HPV 2014-05-25 00:00:00 Completed [facility] influenza virus vaccine, unspecified formulation 2009-08-09 00:00:00 Completed [facility] H1n1 Vaccine 2009-08-09 00:00:00 Completed [facility] Influenza Virus Vaccine 2009-08-09 00:00:00 Completed [facility] H1n1 Vaccine 2009-08-09 00:00:00 Completed [facility] Influenza Virus Vaccine 2009-08-09 00:00:00 Completed [facility] H1n1 Vaccine 2009-08-09 00:00:00 Completed [facility] Influenza Virus Vaccine 2009-08-09 00:00:00 Completed [facility] H1n1 Vaccine 2009-08-09 00:00:00 Completed [facility] Influenza Virus Vaccine 2009-08-09 00:00:00 Completed [facility] H1n1 Vaccine 2009-08-09 00:00:00 Completed [facility] Influenza Virus Vaccine 2009-08-09 00:00:00 Completed [facility] H1n1 Vaccine 2009-08-09 00:00:00 Completed [facility] Influenza Virus Vaccine 2009-08-09 00:00:00 Completed [facility] H1n1 Vaccine 2009-08-09 00:00:00 Completed [facility] Influenza Virus Vaccine 2009-08-09 00:00:00 Completed [facility] H1n1 Vaccine 2009-08-09 00:00:00 Completed [facility] Influenza Virus Vaccine 2009-08-09 00:00:00 Completed [facility] H1n1 Vaccine 2009-08-09 00:00:00 Completed [facility] Influenza Virus Vaccine 2009-08-09 00:00:00 Completed [facility] H1n1 Vaccine 2009-08-09 00:00:00 Completed [facility] Influenza Virus Vaccine 2009-08-09 00:00:00 Completed [facility] H1n1 Vaccine 2009-08-09 00:00:00 Completed [facility] Influenza Virus Vaccine 2009-08-09 00:00:00 Completed [facility] H1n1 Vaccine 2009-08-09 00:00:00 Completed [facility] Influenza Virus Vaccine 2009-08-09 00:00:00 Completed [facility] H1n1 Vaccine 2009-08-09 00:00:00 Completed [facility] Influenza Virus Vaccine 2009-08-09 00:00:00 Completed [facility] H1n1 Vaccine 2009-08-09 00:00:00 Completed [facility] Influenza Virus Vaccine 2009-08-09 00:00:00 Completed [facility] H1n1 Vaccine 2009-08-09 00:00:00 Completed [facility] Influenza Virus Vaccine 2009-08-09 00:00:00 Completed [facility] H1n1 Vaccine 2009-08-09 00:00:00 Completed [facility] Influenza Virus Vaccine 2009-08-09 00:00:00 Completed [facility] H1n1 Vaccine 2009-08-09 00:00:00 Completed Influenza Virus Vaccine 2009-08-09 00:00:00 Completed H1n1 Vaccine 2009-08-09 00:00:00 Completed [facility] Influenza Virus Vaccine 2009-08-09 00:00:00 Completed [facility] influenza virus vaccine, unspecified formulation 2009-07-04 00:00:00 Completed [facility] Influenza Virus Vaccine 2009-07-04 00:00:00 Completed [facility] Influenza Virus Vaccine 2009-07-04 00:00:00 Completed [facility] Influenza Virus Vaccine 2009-07-04 00:00:00 Completed [facility] Influenza Virus Vaccine 2009-07-04 00:00:00 Completed [facility] Influenza Virus Vaccine 2009-07-04 00:00:00 Completed [facility] Influenza Virus Vaccine 2009-07-04 00:00:00 Completed [facility] Influenza Virus Vaccine 2009-07-04 00:00:00 Completed [facility] Influenza Virus Vaccine 2009-07-04 00:00:00 Completed [facility] Influenza Virus Vaccine 2009-07-04 00:00:00 Completed [facility] Influenza Virus Vaccine 2009-07-04 00:00:00 Completed [facility] Influenza Virus Vaccine 2009-07-04 00:00:00 Completed [facility] Influenza Virus Vaccine 2009-07-04 00:00:00 Completed [facility] Influenza Virus Vaccine 2009-07-04 00:00:00 Completed [facility] Influenza Virus Vaccine 2009-07-04 00:00:00 Completed [facility] Influenza Virus Vaccine 2009-07-04 00:00:00 Completed [facility] Influenza Virus Vaccine 2009-07-04 00:00:00 Completed [facility] Influenza Virus Vaccine 2009-07-04 00:00:00 Completed [facility] Influenza Virus Vaccine 2009-07-04 00:00:00 Completed [facility] hepatitis A vaccine, pediatric/adolescent dosage, [...] pediatric/adolescent dosage 2002 00:00:00 Completed [facility] DTaP Unspecified Unknown Completed Eric Gomes - External Influenza Virus Vaccine, No Preserv, age 6 months and up Unknown Completed Whitney S eybold - External Influenza Virus Vaccine-Whole- Intranasal Unknown Completed Whitney Rahman External AFLURIA TRIVALENT MDV Unknown Completed Whitney Rahman External [id number] Unknown Completed Whitney turner - External HEPATITIS A- PEDI/ADOL Unknown Completed Whitney Gomes - External Hepatitis B, Adolescent Or Pediatric Unknown Completed Whitney Gomes - External HIB- Haemophilus Influenzae Type B Unknown Completed Whitney turner - External HPV 4 (Human Papillomavirus) Unknown Completed Whitney john - External HPV 9 (Human Papillomavirus) Unknown Completed Whitney Norwood ld - External Meningococcal Vaccine- Conjugate(Menactra) Unknown Completed Whitney matamorosbodora - External MMR- Measles, Mumps, Rubella Unknown Completed Whitney Gomes External MMR/Varicella (ProQuad) Unknown Completed Whitney Gomes External Pneumococcal Vaccine, Conjugate 7 Unknown Completed Whitney Gomes External IPV- Inactivated Polio Vaccine Unknown Completed Whitney Rahman External Tdap- (Boostrix, Adacel) Unknown Completed Whitney Gomes External Varicella Vaccine Unknown Completed Ray Gomes - External Influenza Virus Vaccine Unknown Completed [facility] H1n1 Vaccine Unknown Completed [facility] TDAP Unknown Completed [facility] Meningococcal Polysaccharide (groups A, C, Y and W-135) conjugate vaccine (MCV4P) Unknown Completed [facility] HPV Unknown Completed [facility] Vital Signs Vital Name Observation Time Observation Value Comments S ource Systolic blood pressure 2024-09-15 16:14:00 104 mm[Hg] Whitney Waldentito - External Diastolic blood pressure 2024-09-15 16:14:00 64 mm[Hg] Whitney Waldentito - External Heart rate 2024-09-15 16:14:00 83 /min Whitney ricotito - External Body temperature 2024-09-15 16:14:00 35.94 Jeana Whitney ricotito - External Respiratory rate 2024-09-15 16:14:00 14 /min Whitney ricotito - External Body height 2024-09-15 16:14:00 173.4 cm Whitney ricotito - External Body weight 2024-09-15 16:14:00 55.157 kg Whitney ricotito - External BMI 2024-09-15 16:14:00 18.35 kg/m2 Whitney Gomes - External Oxygen saturation in Arterial blood by Pulse oximetry 2024-09-15 16:14:00 98 /min Whitney Gomes - External Systolic blood pressure 2024-07-29 19:40:00 116 mm[Hg] [facility] Diastolic blood pressure 2024-07-29 19:40:00 78 mm[Hg] [facility] Heart rate 2024-07-29 19:40:00 93 /min [facility] Respiratory rate 2024-07-29 19:40:00 16 /min [facility] Oxygen saturation in Arterial blood by Pulse oximetry 2024-07-29 19:40:00 98 /min [facility] Body temperature 2024-07-29 16:40:00 36.39 Jeana [facility] Body height 2024-07-29 16:40:00 172.7 cm [facility] Body weight 2024-07-29 16:40:00 49.896 kg [facility] BMI 2024-07-29 16:40:00 16.73 kg/m2 [facility] Systolic blood pressure 2024-06-07 03:00:00 73 mm[Hg] [facility] Diastolic blood pressure 2024-06-07 03:00:00 64 mm[Hg] [facility] Body temperature 2024-06-07 03:00:00 36.61 Jeana [facility] Respiratory rate 2024-06-07 03:00:00 25 /min [facility] Oxygen saturation in Arterial blood by Pulse oximetry 2024-06-07 03:00:00 98 /min [facility] Heart rate 2024-06-07 00:52:00 67 /min [facility] Body height 2024-06-07 00:52:00 172.7 cm [facility] Body weight 2024-06-07 00:52:00 51.256 kg [facility] BMI 2024-06-07 00:52:00 17.18 kg/m2 [facility] Systolic blood pressure 2024-06-02 15:36:00 [...] Systolic blood pressure 2022-11-28 17:50:00 104 mm[Hg] [facility] Diastolic blood pressure 2022-11-28 17:50:00 52 mm[Hg] [facility] Heart rate 2022-11-28 17:50:00 106 /min [facility] Body height 2022-11-28 17:50:00 172.7 cm [facility] Body weight 2022-11-28 17:50:00 62.551 kg [facility] BMI 2022-11-28 17:50:00 20.97 kg/m2 [facility] Oxygen saturation in Arterial blood by Pulse oximetry 2022-11-28 17:50:00 93 /min [facility] Systolic blood pressure 2022-10-20 14:09:00 108 mm[Hg] [facility] Diastolic blood pressure 2022-10-20 14:09:00 65 mm[Hg] [facility] Heart rate 2022-10-20 14:09:00 95 /min [facility] Body temperature 2022-10-20 14:09:00 37.06 Jeana [facility] Body height 2022-10-20 14:09:00 172.7 cm [facility] Body weight 2022-10-20 14:09:00 58.968 kg [facility] BMI 2022-10-20 14:09:00 19.77 kg/m2 [facility] Oxygen saturation in Arterial blood by Pulse oximetry 2022-10-20 14:09:00 98 /min [facility] Systolic blood pressure 2022-09-05 20:22:00 101 mm[Hg] [facility] Diastolic blood pressure 2022-09-05 20:22:00 64 mm[Hg] [facility] Heart rate 2022-09-05 20:22:00 62 /min [facility] Body temperature 2022-09-05 20:22:00 36.33 Jeana [facility] Body height 2022-09-05 20:22:00 172.7 cm [facility] Body weight 2022-09-05 20:22:00 56.337 kg [facility] BMI 2022-09-05 20:22:00 18.88 kg/m2 [facility] Oxygen saturation in Arterial blood by Pulse oximetry 2022-09-05 20:22:00 97 /min [facility] Systolic blood pressure 2022-09-03 05:40:00 110 mm[Hg] [facility] Diastolic blood pressure 2022-09-03 05:40:00 81 mm[Hg] [facility] Heart rate 2022-09-03 05:40:00 64 /min [facility] Body temperature 2022-09-03 05:40:00 37.22 Jeana [facility] Respiratory rate 2022-09-03 05:40:00 18 /min [facility] Body height 2022-09-03 05:40:00 172.7 cm [facility] Body weight 2022-09-03 05:40:00 57.153 kg [facility] BMI 2022-09-03 05:40:00 19.16 kg/m2 [facility] Oxygen saturation in Arterial blood by Pulse oximetry 2022-09-03 05:40:00 100 /min [facility] Systolic blood pressure 2022-09-02 17:17:00 114 mm[Hg] [facility] Diastolic blood pressure 2022-09-02 17:17:00 75 mm[Hg] [facility] Heart rate 2022-09-02 17:17:00 81 /min [facility] Body temperature 2022-09-02 17:17:00 36.61 Jeana [facility] Respiratory rate 2022-09-02 17:17:00 18 /min [facility] Oxygen saturation in Arterial blood by Pulse oximetry 2022-09-02 17:17:00 99 /min [facility] Body weight 2022-09-01 19:40:00 61 kg [facility] BMI 2022-09-01 19:40:00 20.45 kg/m2 [facility] Body height 2022-09-01 19:36:00 172.7 cm [facility] BP Systolic 2019-10-20 12:54:00 118 [...] Rate 2019-02-24 10:04:00 62 /min Quality: Normal [facility] Respiration Rate 2019-02-24 10:04:00 18 /min Quality: Normal [facility] O2 SAT 2019-02-24 10:04:00 100 % Source: RA [facility] BP Systolic 2019-02-07 10:53:00 103 mm[Hg] [facility] BP Diastolic 2019-02-07 10:53:00 63 mm[Hg] [facility] Height 2019-02-07 10:53:00 167.5 cm [facility] Weight 2019-02-07 10:53:00 44.8 kg [facility] Body Mass Index Calculated 2019-02-07 10:53:00 15.97 kg/m2 [facility] Heart Rate 2019-02-07 10:53:00 63 /min [facility] Temperature 2019-02-07 10:53:00 98 [degF] [facility] Procedures Procedure Date / Time Performed Performing Clinician Source XR SHOULDER 2+ VW LEFT 2024-07-29 17:33:31 Donta Deluna [facility] CREATINE KINASE 2024-06-07 01:23:00 Trinidad Estrada [facility] MAGNESIUM 2024-06-07 01:23:00 Trinidad Estrada [facility] COMP. METABOLIC PANEL (33063) 2024-06-07 01:23:00 Trinidad Estrada [facility] CBC WITH DIFF 2024-06-07 01:23:00 [facility] 2024-06-07 01:23:00 Trinidad Estrada [facility] URINE DRUG (IMMUNOASSAY) - COMPREHENSIVE DRUG SCREEN W/O REFLEX 2024-06-07 01:23:00 Trinidad Estrada [facility] PATIENT FINANCIAL POLICY 2022-11-28 17:49:34 Doctor Unassigned, [place] [facility] EXTERNAL PROVIDER RECORDS 2022-11-19 06:01:00 Doctor Unassigned, [place] [facility] DEXA AXIAL (HIP AND SPINE) 2022-09-17 19:58:00 Kenya Fuentes [facility] EXTERNAL PROVIDER RECORDS 2022-09-16 06:01:00 Doctor Unassigned, [place] [facility] ASSIGNMENT OF BENEFITS 2022-09-05 19:47:49 Docto r Unassigned, [place] [facility] COMP. METABOLIC PANEL ([id number]) 2022-09-01 10:44:00 [facility] CBC WITH DIFF 2022-09-01 10:44:00 Nati Mitchell [facility] XR CHEST 1 VW 2022-09-01 10:15:00 [facility] CREATINE KINASE 2022-08-31 09:35:00 Dolly Beasley [facility] MAGNESIUM 2022-08-31 09:35:00 Jael Coppola [facility] TROPONIN I 2022-08-31 09:35:00 Jael Coppola [facility] COMP. METABOLIC PANEL ([id number]) 2022-08-31 09:35:00 Jael Coppola [facility] SALICYLATE 2022-08-31 09:35:00 Jael Coppola [facility] ETHANOL 2022-08-31 09:35:00 Jael Coppola [facility] CBC WITH DIFF 2022-08-31 09:35:00 [facility]UG (IMMUNOASSAY) - COMPREHENSIVE DRUG SCREEN 2022-08-31 09:07:00 Jael Coppola [facility] URINE DRUG (LCMSMS) - COMPREHENSIVE DRUG PANEL 2022-08-31 09:07:00 Jael Coppola [facility] AC PANEL 20 + LACTIC ACID 2022-08-31 09:01:00 Jael Coppola [facility] XR CHEST 1 VW 2022-08-31 05:44:00 [facility] KUB 2022-08-31 05:44:00 Jael Coppola [facility] AUTHORIZATION FOR RELEASE OF PHI 2020-08-21 06:01:00 Doctor Unassigned, [place] [facility] [[facility]] CBC (INCLUDES DIFF/PLT) 2019-10-20 00:00:00 [facility] [QL] CMP W/EGFR 2019-10-20 00:00:00 [facility] [QL] LIPID PANEL 2019-10-20 00:00:00 [facility] [QL] TSH, 3RD GENERATION 2019-10-20 00:00:00 [facility] [Q] DRUG SCREEN,COMPREHENSIVE (URINE) 2019-07-20 00:00:00 [facility] [Q] DRUG SCREEN,COMPREHENSIVE (URINE) 2019-02-24 00:00:00 [facility] Encounters Start Date/Time End Date/Time Encounter Type Admission Type Attending [facility] Care Department Encounter ID Source 2024-09-22 16:00:00 2024-09-22 16:00:00 Outpatient DELMI GRANT [id number] [facility] 2024-09-22 09:30:00 2024-09-22 09:30:00 Outpatient LABSanjay LAIRD [id number] [facility] 2024-09-22 00:00:00 2024-09-22 00:00:00 Outpatient BATESROGERS CARREON [id number] [facility] 2024-09-22 00:00:00 2024-09-22 00:00:00 Outpatient BATESROGERS CARREON [id number] [facility] 2024-09-22 00:00:00 2024-09-22 00:00:00 Outpatient BATESROGERS CARREON [id number] [facility] 2024-09-16 00:00:00 2024-09-16 00:00:00 Outpatient BATESROGERS CARREON [id number] [facility] 2024-09-16 00:00:00 2024-09-16 00:00:00 Outpatient BATESROGERS CARREON [id number] [facility] 2024-09-15 11:05:00 2024-09-15 11:05:00 Outpatient LAB90 WHITNEY LAIRD [id number] [facility] 2024-09-15 10:00:00 2024-09-15 10:00:00 Outpatient BATES, ROGERS LAIRD [id number] [facility] 2024-09-15 00:00:00 2024-09-15 00:00:00 Outpatient ALEJANDRA WESLEY WHITNEY LAIRD [id number] [facility] 2024-08-24 00:00:00 2024-08-24 00:00:00 Outpatient NICK GAINES WHITNEY LAIRD [id number] [facility] 2024-07-29 11:41:00 2024-07-29 15:18:00 Emergency X DONTA DELUNA [facility] ERT [id number] [facility] 2024-07-29 11:41:00 2024-07-29 15:18:00 Emergency Donta Deluna [facility] [id number] 350.1.13.10 4.2.7.2.686 [id number] [facility] 2024-06-09 09:30:00 2024-06-09 09:30:00 Outpatient VERNON SAMANIEGO [id number] [facility] 2024-06-08 00:00:00 2024-06-08 00:00:00 Outpatient VERNON SAMANIEGO [id number] [facility] 2024-06-07 00:00:00 2024-06-07 00:00:00 Outpatient IHSAN CHEN [id number] [facility] 2024-06-06 20:03:00 2024-06-06 22:17:00 Emergency X TRINIDAD ESTRADA SANDRA [facility] ERT [id number] [facility] 2024-06-06 20:03:00 2024-06-06 22:17:00 Emergency Trinidad Estrada [facility] [id number] 350.1.13.10 4.2.7.2.686 [id number] [facility] 2024-06-02 11:20:00 2024-06-02 11:20:00 Outpatient LAB47 WHITNEY LAIRD [id number] [facility] 2024-06-02 10:30:00 2024-06-02 10:30:00 Outpatient IHSAN CHEN [facility] [id number] [facility] 2024-05-18 15:15:00 2024-05-18 15:15:00 Outpatient ALLEN CANNON WHITNEY [id number] [facility] 2024-05-18 15:15:00 2024-05-18 15:15:00 Outpatient ALLEN CANNON WHITNEY LAIRD [id number] [facility] 2023-04-24 11:00:00 2023-04-24 11:00:00 Outpatient R DONTA HAYNES [facility] [id number] [facility] 2022-12-30 00:00:00 2022-12-30 00:00:00 Telephone Donta Haynes [facility] 1..840.114 350.1.13.10 4.2.7.2.686 [id number] [facility] 2022-12-03 14:00:00 2022-12-03 14:00:00 Outpatient R KENYA FUENTES [facility] [id number] [facility] 2022-12-02 00:00:00 2022-12-02 00:00:00 Telephone Kenya Fuentes [facility] [id number] 350.1.13.10 4.2.7.2.686 [id number] [facility] 2022-11-28 12:00:00 2022-11-28 13:03:08 Outpatient R DONTA HAYNES [facility] [id number] [facility] 2022-11-28 12:00:00 2022-11-28 13:03:08 Office Visit Donta Haynes [facility] [id number] 350.1.13.10 4.2.7.2.686 [id number] [facility] 2022-11-28 00:00:00 2022-11-28 00:00:00 Orders Only Doctor Unassigned, [place] [facility] 1.20.114 350.1.13.10 4.2.7.2.686 [id number] [facility] 2022-11-19 00:00:00 2022-11-19 00:00:00 Orders Only Doctor Unassigned, [place] [facility] 1.20.114 350.1.13.10 4.2.7.2.686 [id number] [facility] 2022-10-20 08:00:00 2022-10-20 08:45:36 Outpatient R ALFREDO KENYA [facility] [id number] [facility] 2022-10-20 08:00:00 2022-10-20 08:45:36 Office Visit Alfredo Kenya [facility] 1.84.114 350.1.13.10 4.2.7.2.686 [id number] [facility] 2022-09-23 00:00:00 2022-09-23 00:00:00 Telephone Alfredo Kenya [facility] 1.840.114 350.1.13.10 4.2.7.2.686 [id number] [facility] 2022-09-17 13:39:39 2022-09-17 23:59:00 Outpatient R KENYA FUENTES [facility] [id number] [facility] 2022-09-17 13:39:39 2022-09-17 23:59:00 Hospital Encounter Alfredo Kenya [facility] 1.20.114 350.1.13.10 4.2.7.2.686 [id number] [facility] 2022-09-16 00:00:00 2022-09-16 00:00:00 Orders Only Doctor Unassigned, [place] [facility] 1.2840.114 350.1.13.10 4.2.7.2.686 [id number] [facility] 2022-09-05 14:00:00 2022-09-05 14:51:04 Outpatient R ALECIARadha KENYA [facility] [id number] [facility] 2022-09-05 14:00:00 2022-09-05 14:51:04 Office Visit Aleciaradha [place] [facility] 1.2840.114 350.1.13.10 4.2.7.2.686 [id number] [facility] 2022-09-05 00:00:00 2022-09-05 00:00:00 Orders Only Doctor Unassigned, [place] [facility] [facility] 1.2840.114 350.1.13.10 4.2.7.2.686 [id number] [facility] 2022-09-03 00:00:00 2022-09-03 00:00:00 Transition of Care Marilu Steiner MCMULLEN AYDEE 1.2.840.114 350.1.13.10 4.2.7.2.686 [id number] [facility] 2022-09-02 23:43:00 2022-09-02 23:56:00 Emergency X TRINIDAD ESTRADA [facility] ERT [id number] [facility] 2022-09-02 23:43:00 2022-09-02 23:56:00 Emergency Trinidad Estrada [facility] 1.2.840.114 350.1.13.10 4.2.7.2.686 [id number] [facility] 2022-08-30 22:42:00 2022-09-02 15:34:00 Inpatient X MICHAEL ASHRAF [facility] MOOSE [id number] [facility] 2022-08-30 22:42:00 2022-09-02 15:34:00 Hospital Encounter Denise Guerreronikunj Barillasderek, Ayaan Ashraf, Michael [facility] 1.2.840.114 350.1.13.10 4.2.7.2.686 [id number] [facility] 2020-08-21 00:00:00 2020-08-21 00:00:00 Orders Only Doctor Unassigned, [place] [facility] 1.2.840.114 350.1.13.10 4.2.7.2.686 [id number] 2020-08-21 00:00:00 2020-08-21 00:00:00 Orders Only Doctor Unassigned, [place] [facility] 1.2.840.114 350.1.13.10 4.2.7.2.686 [id number] [facility] 2019-12-08 13:05:19 2019-12-08 14:05:19 Office Visit Kim Patel [facility] [place] 1.2.840.114 350.1.13.10 4.2.7.2.686 [id number] 2019-12-08 13:05:19 2019-12-08 14:05:19 Office Visit Kim Patel [facility] [place] 1.2.840.114 350.1.13.10 4.2.7.2.686 [id number] [facility] 2019-12-08 13:15:00 2019-12-08 13:15:00 Outpatient R JORGE [facility] [id number] [facility] 2019-10-20 13:00:00 2019-10-20 13:00:00 Ronnie t; JAZMYN ESPINAL M.D. MEMON, SABA, M.D. [facility] [id number] [facility] 2019-07-20 13:00:00 2019-07-20 13:00:00 Appointmen t; JAZMYN ESPINAL M.D. MEMON, SABA, M.D. [facility] Psychiatry Outpatient Clinic - [facility] [id number] [facility] 2019-06-08 00:00:00 2019-06-08 00:00:00 Telephone Kim Patel [facility] [place] 1.2.840.114 350.1.13.10 4.2.7.2.686 [id number] [facility] 2019-02-24 10:00:00 2019-02-24 10:00:00 Appointdena t; JAZMYN ESPINAL M.D. MEMON, SABA, M.D. [facility] [id number] [facility] 2019-02-07 10:20:00 2019-02-07 10:20:00 Appointdena t; CHANCE VAZQUEZ APRN WILLIAMSON, TIFFINY, APRN [facility] [id number] [facility] Results Test Description Test Time Test Comments Results Resul t Comments Source XR SHOULDER 2+ VW LEFT 2024-07-29 18:46:43 ORDERING PHYSICIAN: DONTA DELUNA HISTORY: ?pain TECHNIQUE:Three views of the left shoulder . Technical quality: Diagnostic. COMPARISON: None FINDINGS: There is no fracture or dislocation. ? ?Soft tissues are unremarkable. [facility] ([id number])2024-06-07 01:51:42* Test Item Value Reference Range Interpretation Comme nts NA (test code = 5498145664) 138 mmol/L 135-145 K (test code = 3789930624) 3.6 mmol/L 3.5-5.0 CL (test code = 0081442101) 101 mmol/L 98-108 CO2 TOTAL (test code = 5880888972) 26 mmol/L 23-31 AGAP (test code = 9297942459) 11 2-16 BUN (test code = 6344359365) 7 mg/dL 7-23 GLUCOSE (test code = 2184550735) 98 mg/dL 70-110 CREATININE (test code = 2160-0) 0.84 mg/dL 0.60-1.25 TOTAL BILI (test code = 4590211567) 1.4 mg/dL 0.1-1.1 H CALCIUM (test code = 5892593045) 9.4 mg/dL 8.6-10.6 T PROTEIN (test code = 5115889518) 7.3 g/dL 6.3-8.2 ALBUMIN (test code = 7215676292) 4.6 g/dL 3.5-5.0 ALK PHOS (test code = 5486871178) 109 U/L 34-122 ALTv (test code = 1742-6) 18 U/L 5-50 AST(SGOT) (test code = 0855728665) 23 U/L 13-40 eGFR (test code = 79768-6) 127.2 mL/min/1.73m2 CKD-EPI eGFR (2020). Assuming creatinine has been stable day-to-day for at least three months, the eGFR indicates Category G1 (>= 90 mL/min/1.73 m2) Lab Interpretation (test code = 94430-8) [facility]normal [facility] [id number] 01:51:22* Test Item Value Reference Range Interpretation Comme nts CK (test code = 1226826077) 195 U/L 33-194 H Lab Interpretation (test cod e = 40296-1) [facility] [id number] 01:40:20* Test Item Value Reference Range Interpretation [...] 33.7 g/dL 31.2-35.0 RDW-SD (test code = 24248-5) 44.1 fL 38.5-51.6 RDW-CV (test code = 788-0) 13.2 % 12.1-15.4 PLT (test code = 777-3) 266 150-328 MPV (test code = 29541-7) 10.2 fL 9.8-13.0 NRBC/100 WBC (test code = 9238399966) 0.0 0.0-10.0 NRBC x10^3 (test code = 9293730493) See_Comment [Automated message] The system which generated this result transmitted reference range: 10*3/?L. The reference range was not used to interpret this result as normal/abnormal. GRAN MAT (NEUT) % (test code = 770-8) 75.6 % IMM GRAN % (test code = 7338938313) 0.40 % LYMPH % (test code = 736-9) 12.1 % MONO % (test code = 5905-5) 10.5 % EOS % (test code = 713-8) 0.9 % BASO % (test code = 706-2) 0.5 % GRAN MAT x10^3(ANC) (test code = 4216044929) 10.09 10*3/uL 1.99-6.95 H IMM GRAN x10^3 (test code = 6107135033) 0.06 10*3/uL 0.00-0.06 LYMPH x10^3 (test code = 731-0) 1.61 10*3/uL 1.09-3.23 MONO x10^3 (test code = 742-7) 1.40 10*3/uL 0.36-1.02 H EOS x10^3 (test code = 711-2) 0.12 10*3/uL 0.06-0.53 BASO x10^3 (test code = 704-7) 0.07 10*3/uL 0.01-0.09 Lab Interpretation (test code = 47269-5) Abnormal [facility]. METABOLIC PANEL ([id number])2022-09-01 11:26:16* Test Item Value Reference Range Interpretation Comme nts NA (test code = 1405984270) 138 mmol/L 135-145 K (test code = 0849685647) 3.5 mmol/L 3.5-5.0 Slight hemolysis CL (test code = 0038934215) 110 mmol/L 98-108 H CO2 TOTAL (test code = 9032217450) 26 mmol/L 23-31 AGAP (test code = 3232702598) 2-16 BUN (test code = 4684110974) 9 mg/dL 7-23 Slight hemolysis GLUCOSE (test code = 9482332250) 99 mg/dL 70-110 CREATININE (test code = 2968066443) 0.73 mg/dL 0.60-1.25 TOTAL BILI (test code = 8455534579) 0.9 mg/dL 0.1-1.1 CALCIUM (test code = 9138747489) 8.2 mg/dL 8.6-10.6 L T PROTEIN (test code = 8551453952) 5.5 g/dL 6.3-8.2 L ALBUMIN (test code = 5435823589) 3.3 g/dL 3.5-5.0 L ALK PHOS (test code = 3819422342) 75 U/L 34-122 Slight hemolysis ALTv (test code = 1742-6) 16 U/L 5-50 AST(SGOT) (test code = 2660246306) 30 U/L 13-40 Slight hemolysis eGFR (test code = 5265322840) mL/min/1.73m2 KACI (test code = KACI) Association [...] imaging tests). Lab Interpretation (test code = 41150-6) Abnormal [facility] WITH [id number] 11:03:17* Test Item Value Reference Range Interpretation Comme nts WBC (test code = 6690-2) See_Comment [Automated [employer] rim[employer]] The system which generated this result transmitted reference range: 4.20 - 10.70 10*3/?L. The reference range was not used to interpret this result as normal/abnormal. RBC (test code = 789-8) See_Comment L [Automated [employer]] The system which generated this result transmitted [...] g/dL 31.2-35.0 H RDW-SD (test code = 92385-7) 41.7 fL 38.5-51.6 RDW-CV (test code = 788-0) 13.2 % 12.1-15.4 PLT (test code = 777-3) See_Comment [Automated [employer]] The system which generated this result transmitted reference range: 150 - 328 10*3/?L. The reference range was not used to interpret this result as normal/abnormal. MPV (test code = 76989-1) 11.9 fL 9.8-13.0 NRBC/100 WBC (test code = 6877579516) See_Comment [Automated me ssage] The system which generated this result transmitted reference range: 0.0 - 10.0 /100 WBCs. The reference range was not used to interpret this result as normal/abnormal. NRBC x10^3 (test code = 0677420038) See_Comment [Automated messa ge] The system which generated this result transmitted reference range: 10*3/?L. The reference range was not used to interpret this result as normal/abnormal. GRAN MAT (NEUT) % (test code = 770-8) 62.3 % IMM GRAN % (test code = 9155464851) 0.20 % LYMPH % (test code = 736-9) 25.7 % MONO % (test code = 5905-5) 8.0 % EOS % (test code = 713-8) 3.4 % BASO % (test code = 706-2) 0.4 % GRAN MAT x10^3(ANC) (test code = 5056615590) 5.01 10*3/uL 1.99-6.95 IMM GRAN x10^3 (test code = 1913838281) 0.00-0.06 LYMPH x10^3 (test code = 731-0) 2.07 10*3/uL 1.09-3.23 MONO x10^3 (test code = 742-7) 0.64 10*3/uL 0.36-1.02 EOS x10^3 (test code = 711-2) 0.27 10*3/uL 0.06-0.53 BASO x10^3 (test code = 704-7) 0.03 10*3/uL 0.01-0.09 Lab Interpretation (test code = 71197-5) Abnormal [facility] [id number] 17:58:42* Test Item Value Reference Range Interpretation Comme nts CK (test code = 5497046789) 180 U/L 33-194 Lab Interpretation (test cod e = 72432-2) Normal [facility] CenterTROPONIN [id number] 11:09:00* Test Item Value Reference Range Interpretation Comments TROPONIN I (test code = 1808212348) 0.001 ng/mL See_Comment [Automated message] The system [...] of biotin. Lab Interpretation (test code = 18424-8) Normal [facility] CenterSALICYLATE2022-12-04 10:59:14 SALICYLATE<10mg/L111/01/2021 4:59 AM [facility]STUTMB LABORATORY SERVICESTherapeutic Range: ? Analgesic and Antipyretic Use ? 20-100 mg/L ? ? Anti- Inflammatory Use ? 100-250 mg/LToxic Range: ? Greater than 300 mg/LUnMemorial [facility] CenterETHANOL2022-12-04 10:59:14ALCOHOL<10mg/dL08/31/2022 4:59 AM CSTUTMB LABORATORY SERVICESToxic Greater than or equal to 80 mg/dL. NOTE: Whole blood values are approximately 10% to 15% lower than serum and plasma.[facility] [id number] 10:59:09* Test Item Value Reference Range Interpretation Comme nts ACETAMINOP (test code = 6321441223) 10.0-30.0 L KACI (test code = KACI) Toxic: Greater mamie n 200 ug/mL @ 4 hour post ingestion or greater than 50 ug/mL @ 12 hour post ingestion Lab Interpretation (test code = 78911-2) Abnormal [facility] CenterMAGNESIUM2022-12-04 10:58:19* Test Item Value Reference Range Interpretation Comme nts MAGNESIUM (test code = 2912114050) 1.8 mg/dL 1.7-2.4 Lab Interpretation (test cod e = 22855-1) Normal [facility] CenterCOMP. METABOLIC PANEL ([id number])2022-08-31 10:58:18* Test Item Value Reference Range Interpretation Comme nts NA (test code = 6803323082) 141 mmol/L 135-145 K (test code = 4881787597) 4.0 mmol/L 3.5-5.0 CL (test code = 5814767302) 110 mmol/L 98-108 H CO2 TOTAL (test code = 3785708351) 25 mmol/L 23-31 AGAP (test code = 5129547485) 2-16 BUN (test code = 8610492547) 5 mg/dL 7-23 L GLUCOSE (test code = 1381492541) 80 mg/dL 70-110 CREATININE (test code = 5551423292) 0.71 mg/dL 0.60-1.25 TOTAL BILI (test code = 1374564649) 0.5 mg/dL 0.1-1.1 CALCIUM (test code = 1365444127) 7.7 mg/dL 8.6-10.6 L T PROTEIN (test code = 9385136672) 5.2 g/dL 6.3-8.2 L ALBUMIN (test code = 4079816419) 3.3 g/dL 3.5-5.0 L ALK PHOS (test code = 3240608024) 71 U/L 34-122 ALTv (test code = 1742-6) 16 U/L 5-50 AST(SGOT) (test code = 2733247673) 23 U/L 13-40 eGFR (test code = 0551327944) mL/min/1.73m2 KACI (test code = KACI) Association [...] imaging tests). Lab Interpretation (test code = 89949-6) Abnormal [facility] WITH [id number] 09:52:32* Test Item Value Reference Range Interpretation [...] 33.8 g/dL 31.2-35.0 RDW-SD (test code = 51237-7) 41.1 fL 38.5-51.6 RDW-CV (test code = 788-0) 12.9 % 12.1-15.4 PLT (test code = 777-3) See_Comment [Automated message] The system which generated this result transmitted reference range: 150 - 328 10*3/?L. The reference range was not used to interpret this result as normal/abnormal. MPV (test code = 67651-0) 11.1 fL 9.8-13.0 NRBC/100 WBC (test code = 7254768464) See_Comment [Automated message] The system which generated this result transmitted reference range: 0.0 - 10.0 /100 WBCs. The reference range was not used to interpret this result as normal/abnormal. NRBC x10^3 (test code = 6104770073) See_Comment [Automated message] The system which generated this result transmitted reference range: 10*3/?L. The reference range was not used to interpret this result as normal/abnormal. GRAN MAT (NEUT) % (test code = 770-8) 90.1 % IMM GRAN % (test code = 4557739976) 0.40 % LYMPH % (test code = 736-9) 5.4 % MONO % (test code = 5905-5) 3.8 % EOS % (test code = 713-8) 0.1 % BASO % (test code = 706-2) 0.2 % GRAN MAT x10^3(ANC) (test code = 0947384937) 14.75 10*3/uL 1.99-6.95 H IMM GRAN x10^3 (test code = 9025494541) 0.06 10*3/uL 0.00-0.06 LYMPH x10^3 (test code = 731-0) 0.88 10*3/uL 1.09-3.23 L MONO x10^3 (test code = 742-7) 0.62 10*3/uL 0.36-1.02 EOS x10^3 (test code = 711-2) 0.06-0.53 L BASO x10^3 (test code = 704-7) 0.03 10*3/uL 0.01-0.09 Lab Interpretation (test code = 05321-6) Abnormal [facility] CenterAC Panel 20 + Lactic [id number] 09:16:12* Test Item Value Reference Range Interpretation Comme nts PH (test code = 2) 7.35-7.45 PCO2 (test code = 7392995110) See_Comment [Automated messa ge] The system which generated this result transmitted reference range: 35 - 45 mmHg. The reference range was not used to interpret this result as normal/abnormal. PO2 (test code = 9997552910) See_Comment H [Automated messa ge] The system which generated this result transmitted reference range: 80 - 100 mmHg. The reference range was not used to interpret this result as normal/abnormal. HCO3 (test code = 5060024442) See_Comment L [Automated messa ge] The system which generated this result transmitted reference range: 22 - 26 mEq/L. The reference range was not used to interpret this result as normal/abnormal. BE (test code = 3085721613) See_Comment L [Automated messa ge] The system which generated this result transmitted reference range: -3.0 - 3.0 mEq/L. The reference range was not used to interpret this result as normal/abnormal. THB (test code = 1467796879) 13.2 g/dL 13.5-18.0 L %O2HB (test code = 8040522137) 98.8 % 94.0-99.0 %COHB ART (test code = 1223972637) 0.3 % 0.0-1.5 %METHB ART (test code = 4784582517) 0.2 % 0.4-1.5 L VOL%O2 ART (test code = 6266701381) 18.8 % 15.0-23.0 NA (test code = 4952924901) 139 mmol/L 135-145 K+ (test code = 2778256228) 3.9 mmol/L 3.5-5.0 AC CA IONZ (test code = 1355753256) 4.60 mg/dL 4.50-5.30 GLUCOSE (test code = 7879878986) 88 mg/dL 70-110 LACTIC ACID (test code = 3507989892) 1.04 mmol/L 0.50-2.20 Lab Interpretation (test code = 82808-2) Abnormal [facility][H] Drug Screen Urine (9 Drugs)2019-07-20 [...] Negative Urine Propoxyphene Screen (test code = 12960-5) Negative Negative Urine Drug Screen Note (test [...] 50 ng/mLMethadone 300 ng/mLUrine alcohol 20 mg/dL [facility][H] Drug Screen Urine (9 Drugs)2019-02-24 13:44:01* [...] Negative Urine Propoxyphene Screen (test code = 13188-7) Negative Negative Urine Drug Screen Note (test [...] 50 ng/mLMethadone 300 ng/mLUrine alcohol 20 mg/dL [facility]"
--- NOTE | 2024-09-29 10:01 | EDPHYS ---
Physician Documentation [facility] Name: Chan Gale Age: 23 yrs Sex: Male : 2000 Arrival Date: 09/29/2024 Time: 09:10 Bed 18 Private MD: William Christiansen HPI: 09/29 09:47 This 23 yrs old Male presents to ER via Ambulatory with complaints of Suture jasmeet Removal. 09:47 The patient has sutures on the right hand. Previous treatment: Treatment type: The jasmeet patient's original treatment included sutures. Sutures/satnam progress: The patient has no c/o's. The wound is well-healing with no redness, swelling, discharge, or dehiscence reported. The patient has not experienced similar symptoms in the past. Historical: - PMHx: 10:14 Anxiety; avoident restrictive food intact disorder; Bipolar disorder; adhd; Depression; iw drug abuse; - Immunization history:: Adult Immunizations. - Infectious Disease History:: Denies. - Family history:: not pertinent. - Social history:: Smoking status: unknown. ROS: 09:57 Constitutional: Negative for fever, chills, and weight loss, Eyes: Negative for injury, jasmeet pain, redness, and discharge, ENT: Negative for injury, pain, and discharge, Neck: Negative for injury, pain, and swelling, Cardiovascular: Negative for chest pain, palpitations, and edema, Respiratory: Negative for shortness of breath, cough, wheezing, and pleuritic chest pain, Abdomen/GI: Negative for abdominal pain, nausea, vomiting, diarrhea, and constipation, Back: Negative for injury and pain, : Negative for injury, bleeding, discharge, and swelling, Skin: Negative for injury, rash, and discoloration, Neuro: Negative for headache, weakness, numbness, tingling, and seizure, Psych: Negative for depression, anxiety, suicide ideation, homicidal ideation, and hallucinations, Allergy/Immunology: Negative for hives, rash, and allergies, Endocrine: Negative for neck swelling, polydipsia, polyuria, polyphagia, and marked weight changes, Hematologic/Lymphatic: Negative for swollen nodes, abnormal bleeding, and unusual bruising, 09:57 MS/extremity: Positive for laceration, of the right hand, Exam: 09:57 Constitutional: This is a well developed, well nourished patient who is awake, alert, jasmeet and in no acute distress. Head/Face: Normocephalic, atraumatic. Eyes: Pupils equal round and reactive to light, extra-ocular motions intact. Lids and lashes normal. Conjunctiva and sclera are non-icteric and not injected. Cornea within normal limits. Periorbital areas with no swelling, redness, or edema. ENT: Nares patent. No nasal discharge, no septal abnormalities noted. Tympanic membranes are normal and external auditory canals are clear. Oropharynx with no redness, swelling, or masses, exudates, or evidence of obstruction, uvula midline. Mucous membranes moist. Neck: Trachea midline, no thyromegaly or masses palpated, and no cervical lymphadenopathy. Supple, full range of motion without nuchal rigidity, or vertebral point tenderness. No Meningismus. Chest/axilla: Normal chest wall appearance and motion. Nontender with no deformity. No lesions are appreciated. Cardiovascular: Regular rate and rhythm with a normal S1 and S2. No gallops, murmurs, or rubs. Normal PMI, no JVD. No pulse deficits. Respiratory: Lungs have equal breath sounds bilaterally, clear to auscultation and percussion. No rales, rhonchi or wheezes noted. No increased work of breathing, no retractions or nasal flaring. Abdomen/GI: Soft, non-tender, with normal bowel sounds. No distension or tympany. No guarding or rebound. No evidence of tenderness throughout. Back: No spinal tenderness. No costovertebral tenderness. Full range of motion. Male : Normal genitalia with no discharge or lesions. Skin: Warm, dry with normal turgor. Normal color with no rashes, no lesions, and no evidence of cellulitis. Neuro: Awake and alert, GCS 15, oriented to person, place, time, and situation. Cranial nerves II-XII grossly intact. Motor strength 5/5 in all extremities. Sensory grossly intact. Cerebellar exam normal. Normal gait. Psych: Awake, alert, with orientation to person, place and time. Behavior, mood, and affect are within normal limits. 09:57 Musculoskeletal/extremity: ROM: full active range of motion, full passive range of motion, Circulation is intact in all extremities. Sensation intact. Compartment Syndrome exam of affected extremity: is normal. Joints: All joints appear normal with full range of motion. Weight bearing: able to fully bear weight, Tendon exam: specific tendon testing normal through active and passive range of motion Vital Signs: 09:34 BP 124 / 68; Pulse 79; Resp 16; Temp 97.5; Pulse Ox 100% on R/A; iw Procedures: 09:58 Suture/Staple removal: Removed 6 sutures, from right hand, site appears well healed, jasmeet dressed with band aid, Neosporin, Patient tolerated well. MDM: 09:14 Medical Screening Exam initiated [facility] 09:58 Data reviewed: vital signs, nurses notes. Consideration of Admission/Observation jasmeet Escalation of care including admission/observation considered. I considered the following discharge prescriptions or medication management in the emergency department Medications were administered in the Emergency Department. See MAR. Test considered but Not performed: Labs: no labs. Care significantly affected by the following chronic conditions: none. Administered Medications: No medications were administered Disposition Summary: 09/29/24 10:00 Discharge Ordered Notes: Location: Home jasmeet Problem: new jasmeet Symptoms: have improved jasmeet Condition: Stable jasmeet Diagnosis - Encounter for removal of sutures jasmeet Followup: jasmeet - With: Private Physician - When: 5 - 6 days - Reason: Recheck today's complaints, Re-evaluation by your physician Discharge Instructions: - Discharge Summary Sheet jasmeet - How to Change Your Wound Dressing jasmeet - Suture Removal, Care After jasmeet Forms: - Medication Reconciliation Form jasmeet - Antibiotic Education jasmeet - Prescription Opioid Use jasmeet - Patient Portal Instructions jasmeet - Leadership Thank You Letter jasmeet Signatures: William Espinosa MD MD cha Williams, Irene RN RN iw
--- NOTE | 2024-09-29 10:01 | ER ---
Nurse's Notes [facility] Name: Chan Gale Age: 23 yrs Sex: Male : 2000 Arrival Date: 09/29/2024 Time: 09:10 Bed 18 Private MD: Diagnosis: Encounter for removal of sutures Presentation: 09/29 09:34 Chief complaint: Patient states: needs sutures removed from right hand X 2-3 weeks ago. iw 09:34 Coronavirus screen: At this time, the client does not indicate any symptoms associated iw with coronavirus-19. Ebola Screen: No symptoms or risks identified at this time. Initial Sepsis Screen: Does the patient meet any 2 criteria? Does the patient have a suspected source of infection? No. Patient's initial sepsis screen is negative. Risk Assessment: Do you want to hurt yourself or someone else? Patient reports no desire to harm self or others. Onset of symptoms was September 12, 2025. 09:34 Acuity: SIRISHA 4 iw 09:34 Method Of Arrival: Ambulatory iw Triage Assessment: 09:34 General: Appears in no apparent distress. Behavior is calm, cooperative. iw Historical: - PMHx: 10:14 Anxiety; avoident restrictive food intact disorder; Bipolar disorder; adhd; Depression; iw drug abuse; - Immunization history:: Adult Immunizations. - Infectious Disease History:: Denies. - Family history:: not pertinent. - Social history:: Smoking status: unknown. Screenin:00 [facility] ED Fall Risk Assessment (Adult) History of falling in the last 3 months, iw including since admission No falls in past 3 months (0 pts) Confusion or Disorientation No (0 pts) Intoxicated or Sedated No (0 pts) Impaired Gait No (0 pts) Mobility Assist Device Used No (0 pt) Altered Elimination No (0 pt) Score/Fall Risk Level 0 - 2 = Low Risk Oriented to surroundings, Maintained a safe environment. Abuse screen: Denies threats or abuse. Nutritional screening: No deficits noted. Tuberculosis screening: No symptoms or risk factors identified. Assessment: 09:34 General: Appears in no apparent distress. Behavior is cooperative. Pain: Denies pain. iw Neuro: Level of Consciousness is awake, alert, obeys commands, Oriented to person, place, time, situation, Moves all extremities. Cardiovascular: Patient's skin is warm and dry. Respiratory: Respiratory effort is even, Respiratory pattern is regular, symmetrical. Derm: Skin is normal. Musculoskeletal: Range of motion: intact in all extremities. Injury Description: Laceration sustained to right hand several sutured noted to inside of right hand, appears to be imbedded into skin, pt states it has been over two weeks since the injury was sustained. Vital Signs: 09:34 BP 124 / 68; Pulse 79; Resp 16; Temp 97.5; Pulse Ox 100% on R/A; iw ED Course: 09:12 Patient arrived in ED. mr 09:14 William Espinosa MD is Attending Physician. [facility] 09:34 Arm band placed on. iw 09:34 Patient has correct armband on for positive identification. Provided Education on: . iw 09:35 Triage completed. iw 10:14 Tova Santa, RN is Primary Nurse. iw 10:14 No provider procedures requiring assistance completed. Patient did not have IV access iw during this emergency room visit. Administered Medications: No medications were administered Medication: 09:34 VIS not applicable for this client. iw Outcome: 10:00 Discharge ordered by . [facility] 10:14 Discharged to home ambulatory, with family, iw 10:14 Condition: good 10:14 Discharge instructions given to patient, family, Instructed on discharge instructions, follow up and referral plans. Demonstrated understanding of instructions, follow-up care, 10:14 No charge visit due to suture removal. 10:15 Patient left the ED. iw Signatures: William Espinosa MD MD cha Rivera, Mary, Reg Reg Tova Santa, RN RN iw
== END 2024-09-29 10:15 | disposition home or self-care (01) ==
LOC: ER 09:10
DX: Z48.02 Encounter for removal of sutures (principal)

== ENCOUNTER 2024-09-29 17:04 | Emergency (ER) | payer OTHER ==
--- OUTSIDE RECORDS SUMMARY | 2024-09-29 17:08 | XMS REPORT | Continuity of Care Document ---
Author Name Unknown Address [address] [facility] [address] [place] [address] [facility] Address [address] 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 Name Role Phone KENYA FUENTES Primary Care Physician Unavailab margarita GRANT LOW MOOR Attending Clinician Unavailabl e LAB90 Attending Clinician Unavailable ROGERS BATES Attending Clinician Unavailable ALEJANDRA WESLEY Attending Clinician Unavailable NICK GAINES Attending Clinician Unavailable DONTA DELUNA Attending Clinician Unavailable Donta Cope Attending Clinician [phone] VERNON SAMANIEGO Attending Clinician UnavailIHSAN Pineda Attending Clinician UnavailTRINIDAD Tan Attending Clinician Unavailab TRINIDAD Ponce Attending Clinician UnavailTrinidad Sandhu DO Attending Clinician [phone] LAB47 Attending Clinician Unavailable ALLEN CANNON Attending Clinician Unavailable KENYA FUENTES Attending Clinician Unavailable DONTA HAYNES Attending Clinician UnavailDonta Raphael MD Attending Clinician [phone] CRISTINA AZUL Attending Clinician UnavailKenya Lazcano Attending Clinician [phone] Doctor Unassigned, [place] Attending Clinician U Marilu Bingham LVN Attending Clinician [phone] MICHAEL ASHRAF Attending Clinician Unavailable Campbell Guerrero MD Attending Clinician [phone] Ayaan Yung DO Attending Clinician [phone] Michael Ashraf DO Attending Clinician [phone] Jorge PALACIOS, Kim Alicea Attending Clinician [phone] KIM PATEL Attending Clinician UnavailJAZMYN Spence M.D. Attending Clinician UnavailCHANCE Lima APRN Attending Clinician Un available DONTA DELUNA Admitting Clinician Unavailable KENYA FUENTES Admitting Clinician Unavailable CAMPBELL GUERRERO Admitting Clinician Unava ilable Ayaan Yung DO Admitting Clinician [phone] Payers Payer Name Policy Type Policy Number Effective Date Expirati on Date Source [facility] 9 [id number] 2023 00:00:00 [facility] [id number] 2023 00:00:00 [facility] [id number] 2018 00:00:00 Problems Condition Name Condition Details Condition Category Status Onset Date Resolution Date Last Treatment Date Treating Clinician Comments Source Bipolar affective disorder, remission status unspecifie d (multi HCC) Bipolar affective disorder, remission status unspecifie d (multi HCC) Disease Active 2023-09 00:00: 00 Whitney sierra Low bone density for age Low bone density for age Disease Active 10-20 00:00: 00 Whitney Gomes - Isatu sierra Need for hepatitis C screening test Need for hepatitis C screening test Disease Active 10-20 00:00: 00 [facility] Encounter to establish care Encounter to establish care Disease Active 2021-09 00:00: 00 [facility] RLS (restless legs syndrome) RLS (restless legs syndrome) Disease Active 2021-09 00:00: 00 [facility] BMI less than 19,adult BMI less than 19,adult Disease Active 2021-09 00:00: 00 [facility] Encounter to establish care Encounter to establish care Disease Active 2021-09 00:00: 00 [facility] Drug overdose of undetermin ed intent, initial encounter Drug overdose of undetermin ed intent, initial encounter Disease Active 2021-09 00:00: 00 [facility] Bipolar 1 disorder, mixed anxiety-de pression, moderate Bipolar 1 disorder, mixed anxiety-de pression, moderate Disease Recurre nce 02-23 00:00: 00 [facility] Anxiety Anxiety Disease Active 02-23 00:00: 00 [facility] Underweigh t in childhood with BMI < 5th percentile Underweigh t in childhood with BMI < 5th percentile Disease Active 2017-09 00:00: 00 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 Nicotine abuse Nicotine abuse Disease Active 01-10 00:00: 00 [facility] Marijuana abuse, continuous Marijuana abuse, continuous Disease Active 01-10 00:00: 00 [facility] Attention deficit hyperactiv ity disorder [...] BMI < 5th percentile Disease Resolve d 2017-09- 00:00: 00 2019-08-18 00:00:00 2019-08-18 10:02:15 [facility] Bipolar 2 disorder, major depressive episode Bipolar 2 disorder, major depressive episode Disease Resolve d 2017-09 00:00: 00 2019-02-23 00:00:00 2019-02-23 15:24:57 [facility] Episode of recurrent major depressive disorder Episode of recurrent major depressive disorder Disease Resolve d 04-19 00:00: 00 2019-02-23 00:00:00 2019-02-23 15:25:05 [facility] Esophageal reflux Esophageal reflux Disease Resolve d 2008-09 00:00: 00 2016-06-15 00:00:00 2016-06-15 20:21:02 [facility] SENSORY DISORDER SENSORY DISORDER Disease Resolve d 2006-09 00:00: 00 2016-06-15 00:00:00 2016-06-15 20:21:09 [facility] Bipolar disorder Bipolar disorder Disease Resolve d 2006-09 00:00: 00 2009-06-29 00:00:00 2022-04-13 00:12:08 [facility] Nonorganic enuresis Nonorganic enuresis Disease Resolve d 2006-09 00:00: 00 2009-05-18 00:00:00 2009-05-18 17:51:16 [facility] ASPERGER - continue to evaluate for ASPERGER - continue to evaluate for Disease Resolve d 2006-09 00:00: 00 2007-10-20 00:00:00 2007-10-20 16:52:33 [facility] Allergies, Adverse Reactions, Alerts Allergy Name Allergy Type Status Severity Reaction(s) Onset Date Inactive Date Treating Clinician Comments Source NO KNOWN ALLERGIE S Drug Class Active [facility] Social History Social Habit Start Date Stop Date Quantity Comments Source [facility] intake 2024-09-15 00:00:00 2024-09-15 00:00:00 Ex-drinker (finding) Whitney Rahman External Alcohol Comment 2024-09-15 00:00:00 2024-09-15 00:00:00 socially Whitney Rahman External Sex 2023-10-24 09:41:35 2023-10-24 09:41:35 Male (finding) Whitney Gomes - External Exposure to SARS-CoV-2 (event) 2022-11-18 00:00:00 2022-11-28 11:48:00 Not sure [facility] Alcohol intake 2022-10-20 00:00:00 2022-10-20 00:00:00 Current non-drinker of alcohol (finding) [facility] Tobacco Comment 2022-09-05 00:00:00 2022-09-05 00:00:00 Vapes [facility] Tobacco use and exposure 2022-09-05 00:00:00 2022-09-05 00:00:00 Smokeless tobacco non-user [facility] Cigarettes smoked current (pack per day) - Reported 2022-09-05 00:00:00 2022-09-05 00:00:00 [facility] History of Social function 2019-04-07 00:00:00 2019-04-07 00:00:00 [facility] History of tobacco use 2018-07-08 00:00:00 Cigarette Smoker [facility] Sex assigned at 2002 00:00:00 2000 00:00:00 Whitney sylvia - Penelope Smoking Status Start Date Stop Date Source Tobacco smoking consumption unknown Whitney Bairdricotito Josiah Negrete Never smoked tobacco Whitney Bairdricotito - External Smokes tobacco daily 2022-09-05 00:00:00 [facility] Ex-smoker 2022-09-01 00:00:00 2022-09-01 00:00:00 [facility] Medications Ordered Medication Name Filled Medication Name Start Date Stop Date Current Medication? Ordering Clinician Indication Dosage Frequency Signature (SIG) Comments Components Source Gabapentin 600 MG oral Tablet 2023-09 11:00: 30 09-15 00:00 :00 No [id number] 600mg Q.25D Take 1 tablet (600 mg total) by mouth 4 times daily as needed. Whitney sierra Paroxetine HCl 30 MG oral Tablet 2023-09 10:36: 06 Yes [id number] 30mg Take 1 tablet (30 mg total) by mouth after breakfast and after evening meal. Whitney sierra Lorazepam 1 MG oral Tablet 2023-09 10:35: 13 Yes [id number] 1mg Q.25D Take 1 tablet (1 mg total) by mouth every 6 hours as needed for anxiety. Whitney sierra Olanzapine (ZyPREXA) 15 MG oral Tablet 2023-09 10:35: 13 Yes [id number] QD Take by mouth daily. Whitney sierra Gabapentin 300 MG oral Capsule 2023-09 00:00: 00 Yes [id number] 300mg Q.[id number] 3D Take 1 capsule (300 mg total) by mouth 3 times daily. Whitney sierra Gabapentin 600 MG oral Tablet 2023-09 00:00: 00 09-15 00:00 :00 No [id number] 300mg Q.[id number] 3D Take 0.5 tablets (300 mg total) by mouth 3 times daily. Whitney sierra ketorolac (TORADOL) injection 60 mg 2023-09 17:30: 00 07-29 17:31 :00 No 60mg 60 mg, Intramuscu lar, ONCE, 1 dose, On Thu07/29/24 at 1230, [facility] Gabapentin 100 MG oral Capsule 2023-09 00:00: 00 09-15 00:00 :00 No TAKE ONE (1) CAPSULE(S) BY MOUTH IN THE MONRING, AT NOON, AND IN THE EVENING. Whitney sierra NaCl 0.9% (NS) bolus infusion 2,000 mL 06-07 02:00: 00 06-07 03:10 :00 No 2000mL at 999 mL/hr, 2,000 mL, IV Infusion, ONCE, 1 dose, On Thu06/06/24 at 2100, [facility]IB[facility] hydrOXYzine (ATARAX) tablet 25 mg 06-07 01:45: 00 06-07 02:06 :00 No 25mg 25 mg, Oral, ONCE, 1 dose, On Thu06/06/24 at 2045, [facility]IB[facility] ondansetron (ZOFRAN) 4 mg tablet 12-02 00:00: 00 12-13 04:59 :00 No [id number] 4mg Take 1 tablet by mouth every 8 (eight) hours as needed for Nausea and Vomiting (N/V) for up to [address] [facility] OXcarbazepi ne 600 mg tablet 2021-09 14:31: 18 09-05 00:00 :00 No 600mg Take 600 mg by mouth 2 (two) times daily. [facility] LORazepam 1 mg Cp24 2021-09 14:27: 07 09-05 00:00 :00 No 1mg Take 1 mg by mouth 2 (two) times daily. [facility] olanzapine (ZYPREXA ORAL) 2021-09 14:26: 27 Yes Take by mouth 2 (two) times daily. [facility] 2019 [facility] gabapentin 600 mg tablet 2021-09 14:26: 27 Yes 600mg Take 600 mg by mouth in the morning and 600 mg at noon and 600 mg in the evening[address] [facility] SERTraline 100 mg tablet 2021-09 14:19: 22 09-05 00:00 :00 No 100mg Take 100 mg by mouth daily. [facility] Apr 2019 [facility] nicotine (NICODERM) 21 mg/24 hr patch 1 Patch 2021-09 19:45: 00 Yes 1{patch } 1 Patch, Topical, Administer over 24 Hours, Q24H, First dose on Thu09/02/22 at 1345, Until Discontinu ed, Routine [facility] hydrOXYzine (ATARAX) tablet 10 mg 2021-09 19:30: 00 09-02 18:49 :00 No 10mg 10 mg, Oral, ONCE, 1 dose, On Thu09/02/22 at 1330, Routine [facility] gabapentin 600 mg tablet 2021-09 17:34: 50 Yes 600mg Take 600 mg by mouth in the morning and 600 mg at noon and 600 mg in the evening[address] [facility] OXcarbazepi ne 600 mg tablet 2021-09 15:34: 48 Yes 600mg Take 600 mg by mouth 2 (two) times daily. [facility] SERTraline 100 mg tablet 2021-09 15:34: 48 Yes 100mg Take 100 mg by mouth daily. [facility] Apr 2019 [facility] olanzapine (ZYPREXA ORAL) 2021-09 15:34: 48 Yes Take by mouth 2 (two) times daily. [facility] Apr 2019 [facility] LORazepam 1 mg Cp24 2021-09 15:34: 48 Yes 1mg Take 1 mg by mouth 2 (two) times daily. [facility] gabapentin 600 mg tablet 2021-09 15:34: 48 Yes 600mg Take 600 mg by mouth in the morning and 600 mg at noon and 600 mg in the evening[address] [facility] LORazepam (ATIVAN) tablet 1 mg 2021-09 15:00: 00 Yes 1mg 1 mg, Oral, QAM, First dose on Thu09/02/22 at 0900, Until Discontinu ed, Routine [facility] OLANZapine (ZyPREXA) tablet 15 mg 2021-09 03:00: 00 Yes 15mg 15 mg, Oral, QHS, First dose on Thu09/01/22 at 2100, Until Discontinu ed, [facility] PARoxetine (PAXIL) tablet 20 mg 2021-09 03:00: 00 Yes 20mg 20 mg, Oral, QHS, First dose on Thu09/01/22 at 2100, Until Discontinu ed, [facility] gabapentin (NEURONTIN) tablet 600 mg 2021-09 02:00: 00 Yes 600mg 600 mg, Oral, TID, First dose on Thu09/01/22 at 2000, Until Discontinu ed, Routine [facility] acetaminoph en (TYLENOL) tablet 325 mg 2021-09 23:49: 00 09-02 00:20 :00 No 325mg 325 mg, Oral, ONCE, 1 dose, On Thu09/01/22 at 1800, [facility] clonazePAM (KLONOPIN) tablet 1 mg 2021-09 16:15: 00 Yes 1mg 1 mg, Oral, Q8H, First dose (after last modificati on) on Thu09/01/22 at 1015, Until Discontinu ed, Routine [facility] ketamine (KETALAR) injection 50 mg 2021-09 23:30: 00 08-31 07:04 :00 No 50mg 50 mg, Slow IV Push, ONCE, 1 dose, On Thu08/31/22 at 1730, Routine [facility] clonazePAM 0.1 mg/mL oral suspension 1 mg 2021-09 20:00: 00 09-01 14:29 :11 No 1mg 1 mg, Oral, TID, First dose on Thu08/31/22 at 1400, Until Discontinu ed, Routine [facility] midazolam (VERSED) STD 50mg in NaCl 0.9% [...] at maximum allowed dose, contact prescriber .
[facility] enoxaparin (LOVENOX) injection 40 mg 2021-09 15:00: 00 Yes 40mg 40 mg, Subcutaneo us, DAILY, First dose on Thu08/31/22 at 0900, Until Discontinu ed, Routine [facility] dexMEDEtomi dine 200 mcg in 0.9 % NaCl 50 mL (PRECEDEX) RTU IV infusion 2021-09 14:33: 19 09-02 00:39 :35 No .2ug/kg /h 0.2-1.5 mcg/kg/hr ?61 kg (3.05-22.8 75 mL/hr, rounded to 3.05-22.88 mL/hr), IV Infusion, TITRATE, Sedation-R ASS score (0 to -1), Starting on Lewis 08/31/22 at 0833
In itiate infusion at 0.2 mcg/kg/hr and titrate by 0.1 mcg/kg/hr every 30 minutes to goal sedation score. Maximum dose = 1.5 mcg/kg/hr. If goal not maintained at maximum allowed dose, contact prescriber .
[facility] fentaNYL PF (SUBLIMAZE) STD 2,500 mcg in NaCl 0.9% (NS) 250 mL infusion RTU 2021-09 08:03: 47 09-01 11:18 :51 No 25ug/h 25-200 mcg/hr (2.5-20 mL/hr), IV Infusion, TITRATE, CPOT/Pain Scale Goals Determined by Provider, Starting on Lewis 08/31/22 at 0203
In itiate infusion at 25 mcg/hr. Titrate by 25 mcg/hr every 1 minute to 15 minutes to identified goal pain and/or sedation scores. Maximum dose = 200 mcg/hr. If goal not maintained at maximum allowed dose, contact prescriber .
[facility] FENTanyl PF (SUBLIMAZE (PF)) injection 50 mcg 2021-09 08:00: 00 08-31 07:14 :00 No 50ug 50 mcg, Slow IV Push, ONCE, 1 dose, On Lewis 08/31/22 at 0200, Routine [facility] propofoL IV infusion 2021-09 07:24: [...] vials should be discarded after [address]
[facility] lactated ringers IV infusion 1,000 mL 2021-09 07:15: 00 08-31 07:00 :00 No 1000mL at 999 mL/hr, 1,000 mL, Intravenou s, ONCE, 1 dose, On Lewis 08/31/22 at 0115, Routine [facility] midazolam (VERSED) STD 50mg [...] at maximum allowed dose, contact prescriber .
[facility] gabapentin 300 mg/6 mL (6 mL) solution 2021-09 23:09: 11 08-30 00:00 :00 No Take by mouth 2 (two) times daily. [facility] no summer 2018 [facility] PARoxetine 20 mg tablet 2021-09 00:00: 00 Yes 20mg Take 20 mg by mouth in the morning. [facility] LORazepam 1 mg tablet 2021-09 00:00: 00 Yes 1mg Take 1 mg by mouth in the morning. [facility] SERTraline 100 mg tablet 10-22 18:52: 12 Yes 100mg Take 100 mg by mouth daily. Prescribed by [facility] - Apr 2019 [facility] olanzapine (ZYPREXA ORAL) 10-22 18:52: 09 Yes Take by mouth 2 (two) times daily. Prescribed by [facility] - Apr 2019 [facility] gabapentin 300 mg/6 mL (6 mL) solution 10-22 18:52: 07 Yes Take by mouth 2 (two) times daily. [facility] at [facility] summer 2018 [facility] OXcarbazepi ne (TRILEPTAL) 600 mg tablet 10-22 18:52: 06 Yes 600mg Take 600 mg by mouth 2 (two) times daily. [facility] Sertraline HCl - 50 MG [...] (1) TABLET(S) BY MOUTH TWICE A DAY. [facility] busPIRone 15 mg tablet 03-03 00:00: 00 Yes [id number] 15mg Take 1 tablet by mouth 2 (two) times daily. [facility] DULoxetine 60 mg capsule 03-01 00:00: 00 Yes [id number] 60mg Take 1 capsule by mouth daily. [facility] DULoxetine 30 mg capsule 03-01 00:00: 00 Yes [id number] 30mg Take 1 capsule by mouth daily. [facility] OXcarbazepi ne (TRILEPTAL) 600 mg tablet 02-23 19:48: 44 Yes 600mg Take 600 mg by mouth 2 (two) times daily. [facility] traZODONE 50 mg tablet 02-23 00:00: 00 Yes [id number] 25mg Take 0.5 tablets by mouth 2 (two) times daily. [facility] Multi-Vitam in TABS Multi-Vitam in TABS Yes [facility] Immun[facility] Ordered Immunization Name Filled Immunization Name Date Status Comments Source Gardasil 9 Intramuscular Suspension 2018-05-25 00:00:00 Completed [facility] Meningococcal, MCV4, unspecified conjugate formulation(groups A, C, Y and W-135) 2018-05-25 00:00:00 Completed [facility] Boostrix 5-2.5-18.5 Intramuscular Suspension 2018-05-21 00:00:00 Completed [facility] influenza virus vaccine, unspecified formulation 2017-09-03 00:00:00 Completed [facility] influenza virus vaccine, unspecified formulation 2016-07-01 00:00:00 Completed [facility] FluMist Quadrivalent Nasal Suspension 2015-08-06 00:00:00 Completed [facility] Boostrix 5-2.5-18.5 Intramuscular Suspension 2014-12-28 00:00:00 Completed [facility] Meningococcal, MCV4, unspecified conjugate formulation(groups A, C, Y and W-135) 2014-12-28 00:00:00 Completed [facility] influenza virus vaccine, unspecified formulation 2014-06-23 00:00:00 Completed [facility] Gardasil Intramuscular Suspension 2014-05-25 00:00:00 Completed [facility] Boostrix 5-2.5-18.5 Intramuscular Suspension 2014-05-25 00:00:00 Completed [facility] Meningococcal, MCV4, unspecified conjugate formulation(groups A, C, Y and W-135) 2014-05-25 00:00:00 Completed [facility] TDAP 2014-05-25 00:00:00 Completed [facility] Meningococcal Polysaccharide (groups A, C, Y and W-135) conjugate vaccine (MCV4P) 2014-05-25 00:00:00 Completed [facility] HPV 2014-05-25 00:00:00 Completed [facility] TDAP 2014-05-25 00:00:00 Completed [facility] Meningococcal Polysaccharide (groups A, C, Y and W-135) conjugate vaccine (MCV4P) 2014-05-25 00:00:00 Completed [facility] HPV 2014-05-25 00:00:00 Completed [facility] TDAP 2014-05-25 00:00:00 Completed [facility] Meningococcal Polysaccharide (groups A, C, Y and W-135) conjugate vaccine (MCV4P) 2014-05-25 00:00:00 Completed [facility] HPV 2014-05-25 00:00:00 Completed [facility] TDAP 2014-05-25 00:00:00 Completed [facility] Meningococcal Polysaccharide (groups A, C, Y and W-135) conjugate vaccine (MCV4P) 2014-05-25 00:00:00 Completed [facility] HPV 2014-05-25 00:00:00 Completed [facility] TDAP 2014-05-25 00:00:00 Completed [facility] Meningococcal Polysaccharide (groups A, C, Y and W-135) conjugate vaccine (MCV4P) 2014-05-25 00:00:00 Completed [facility] Tdap 2014-05-25 00:00:00 Completed [facility] HPV 2014-05-25 00:00:00 Completed [facility] Meningococcal Polysaccharide (groups A, C, Y and W-135) conjugate vaccine (MCV4P) 2014-05-25 00:00:00 Completed [facility] HPV 2014-05-25 00:00:00 Completed [facility] TDAP 2014-05-25 00:00:00 Completed [facility] Meningococcal Polysaccharide (groups A, C, Y and W-135) conjugate vaccine (MCV4P) 2014-05-25 00:00:00 Completed [facility] HPV 2014-05-25 00:00:00 Completed [facility] TDAP 2014-05-25 00:00:00 Completed [facility] Meningococcal Polysaccharide (groups A, C, Y and W-135) conjugate vaccine (MCV4P) 2014-05-25 00:00:00 Completed [facility] HPV 2014-05-25 00:00:00 Completed [facility] TDAP 2014-05-25 00:00:00 Completed [facility] Meningococcal Polysaccharide (groups A, C, Y and W-135) conjugate vaccine (MCV4P) 2014-05-25 00:00:00 Completed [facility] HPV 2014-05-25 00:00:00 Completed [facility] TDAP 2014-05-25 00:00:00 Completed [facility] Meningococcal Polysaccharide (groups A, C, Y and W-135) conjugate vaccine (MCV4P) 2014-05-25 00:00:00 Completed [facility] HPV 2014-05-25 00:00:00 Completed [facility] TDAP 2014-05-25 00:00:00 Completed [facility] Meningococcal Polysaccharide (groups A, C, Y and W-135) conjugate vaccine (MCV4P) 2014-05-25 00:00:00 Completed [facility] HPV 2014-05-25 00:00:00 Completed [facility] Tdap 2014-05-25 00:00:00 Completed [facility] TDAP 2014-05-25 00:00:00 Completed [facility] Meningococcal Polysaccharide (groups A, C, Y and W-135) conjugate vaccine (MCV4P) 2014-05-25 00:00:00 Completed [facility] HPV 2014-05-25 00:00:00 Completed [facility] Meningococcal Polysaccharide (groups A, C, Y and W-135) conjugate vaccine (MCV4P) 2014-05-25 00:00:00 Completed [facility] HPV 2014-05-25 00:00:00 Completed [facility] TDAP 2014-05-25 00:00:00 Completed [facility] Meningococcal Polysaccharide (groups A, C, Y and W-135) conjugate vaccine (MCV4P) 2014-05-25 00:00:00 Completed [facility] HPV 2014-05-25 00:00:00 Completed [facility] TDAP 2014-05-25 00:00:00 Completed [facility] Meningococcal Polysaccharide (groups A, C, Y and W-135) conjugate vaccine (MCV4P) 2014-05-25 00:00:00 Completed [facility] HPV 2014-05-25 00:00:00 Completed [facility] TDAP 2014-05-25 00:00:00 Completed [facility] Meningococcal Polysaccharide (groups A, C, Y and W-135) conjugate vaccine (MCV4P) 2014-05-25 00:00:00 Completed [facility] HPV 2014-05-25 00:00:00 Completed [facility] TDAP 2014-05-25 00:00:00 Completed [facility] Meningococcal Polysaccharide (groups A, C, Y and W-135) conjugate vaccine (MCV4P) 2014-05-25 00:00:00 Completed HPV 2014-05-25 00:00:00 Completed TDAP 2014-05-25 00:00:00 Completed [facility] Meningococcal Polysaccharide (groups A, C, Y and W-135) conjugate vaccine (MCV4P) 2014-05-25 00:00:00 Completed [facility] HPV 2014-05-25 00:00:00 Completed [facility] influenza virus vaccine, unspecified formulation 2009-08-09 00:00:00 Completed [facility] H1n1 Vaccine 2009-08-09 00:00:00 Completed [facility] Influenza Virus Vaccine 2009-08-09 00:00:00 Completed [facility] H1n1 Vaccine 2009-08-09 00:00:00 Completed [facility] Influenza Virus Vaccine 2009-08-09 00:00:00 Completed [facility] H1n1 Vaccine 2009-08-09 00:00:00 Completed [facility] Influenza Virus Vaccine 2009-08-09 00:00:00 Completed [facility] H1n1 Vaccine 2009-08-09 00:00:00 Completed [facility] Influenza Virus Vaccine 2009-08-09 00:00:00 Completed [facility] H1n1 Vaccine 2009-08-09 00:00:00 Completed [facility] Influenza Virus Vaccine 2009-08-09 00:00:00 Completed [facility] H1n1 Vaccine 2009-08-09 00:00:00 Completed [facility] Influenza Virus Vaccine 2009-08-09 00:00:00 Completed [facility] H1n1 Vaccine 2009-08-09 00:00:00 Completed [facility] Influenza Virus Vaccine 2009-08-09 00:00:00 Completed [facility] H1n1 Vaccine 2009-08-09 00:00:00 Completed [facility] Influenza Virus Vaccine 2009-08-09 00:00:00 Completed [facility] H1n1 Vaccine 2009-08-09 00:00:00 Completed [facility] Influenza Virus Vaccine 2009-08-09 00:00:00 Completed [facility] H1n1 Vaccine 2009-08-09 00:00:00 Completed [facility] Influenza Virus Vaccine 2009-08-09 00:00:00 Completed [facility] H1n1 Vaccine 2009-08-09 00:00:00 Completed [facility] Influenza Virus Vaccine 2009-08-09 00:00:00 Completed [facility] H1n1 Vaccine 2009-08-09 00:00:00 Completed [facility] Influenza Virus Vaccine 2009-08-09 00:00:00 Completed [facility] H1n1 Vaccine 2009-08-09 00:00:00 Completed [facility] Influenza Virus Vaccine 2009-08-09 00:00:00 Completed [facility] H1n1 Vaccine 2009-08-09 00:00:00 Completed [facility] Influenza Virus Vaccine 2009-08-09 00:00:00 Completed [facility] H1n1 Vaccine 2009-08-09 00:00:00 Completed [facility] Influenza Virus Vaccine 2009-08-09 00:00:00 Completed [facility] H1n1 Vaccine 2009-08-09 00:00:00 Completed [facility] Influenza Virus Vaccine 2009-08-09 00:00:00 Completed [facility] H1n1 Vaccine 2009-08-09 00:00:00 Completed Influenza Virus Vaccine 2009-08-09 00:00:00 Completed H1n1 Vaccine 2009-08-09 00:00:00 Completed [facility] Influenza Virus Vaccine 2009-08-09 00:00:00 Completed [facility] influenza virus vaccine, unspecified formulation 2009-07-04 00:00:00 Completed [facility] Influenza Virus Vaccine 2009-07-04 00:00:00 Completed [facility] Influenza Virus Vaccine 2009-07-04 00:00:00 Completed [facility] Influenza Virus Vaccine 2009-07-04 00:00:00 Completed [facility] Influenza Virus Vaccine 2009-07-04 00:00:00 Completed [facility] Influenza Virus Vaccine 2009-07-04 00:00:00 Completed [facility] Influenza Virus Vaccine 2009-07-04 00:00:00 Completed [facility] Influenza Virus Vaccine 2009-07-04 00:00:00 Completed [facility] Influenza Virus Vaccine 2009-07-04 00:00:00 Completed [facility] Influenza Virus Vaccine 2009-07-04 00:00:00 Completed [facility] Influenza Virus Vaccine 2009-07-04 00:00:00 Completed [facility] Influenza Virus Vaccine 2009-07-04 00:00:00 Completed [facility] Influenza Virus Vaccine 2009-07-04 00:00:00 Completed [facility] Influenza Virus Vaccine 2009-07-04 00:00:00 Completed [facility] Influenza Virus Vaccine 2009-07-04 00:00:00 Completed [facility] Influenza Virus Vaccine 2009-07-04 00:00:00 Completed [facility] Influenza Virus Vaccine 2009-07-04 00:00:00 Completed [facility] Influenza Virus Vaccine 2009-07-04 00:00:00 Completed [facility] Influenza Virus Vaccine 2009-07-04 00:00:00 Completed [facility] hepatitis A vaccine, pediatric/adolescent [...] 6 months and up Unknown Completed Whitney montes - External Influenza Virus Vaccine-Whole- Intranasal Unknown Completed Whitney Rahman External AFLURIA TRIVALENT MDV Unknown Completed Whitney Rahman External [id number] Unknown Completed Whitney turner - External HEPATITIS [...] MMR- Measles, Mumps, Rubella Unknown Completed Whitney Rahman External MMR/Varicella (ProQuad) Unknown Completed Whitney Gomes External Pneumococcal Vaccine, Conjugate 7 Unknown Completed Whitney Gomes External IPV- Inactivated Polio Vaccine Unknown Completed Whitney Rahman External Tdap- (Boostrix, Adacel) Unknown Completed Whitney Gomes External Varicella Vaccine Unknown Completed Ray Gomes - External Influenza Virus Vaccine Unknown Completed [facility] H1n1 Vaccine Unknown Completed [facility] TDAP Unknown Completed [facility] Meningococcal Polysaccharide (groups A, C, Y and W-135) conjugate vaccine (MCV4P) Unknown Completed [facility] HPV Unknown Completed [facility] Vital Signs Vital Name Observation Time Observation Value Comments S ource Heart rate 2024-09-15 16:14:00 83 /min Whitney Gomes - External Body temperature 2024-09-15 16:14:00 35.94 Jeana Whitney Gomes - External Respiratory rate 2024-09-15 16:14:00 14 /min Whitney Gomes - External Body height 2024-09-15 16:14:00 173.4 cm Whitney Gomes - External Body weight 2024-09-15 16:14:00 55.157 kg Whitney Gomes - External BMI 2024-09-15 16:14:00 18.35 kg/m2 Whitney Gomes - External Oxygen saturation in Arterial blood by Pulse oximetry 2024-09-15 16:14:00 98 /min Whitney Gomes - External Systolic blood pressure 2024-09-15 16:14:00 104 mm[Hg] Whitney Mireya - External Diastolic blood pressure 2024-09-15 16:14:00 64 mm[Hg] Whitney Sericotito - External Systolic blood pressure 2024-07-29 19:40:00 116 mm[Hg] [facility] Diastolic blood pressure 2024-07-29 19:40:00 78 mm[Hg] [facility] Heart rate 2024-07-29 19:40:00 93 /min [facility] Respiratory rate 2024-07-29 19:40:00 16 /min [facility] Oxygen saturation in Arterial blood by Pulse oximetry 2024-07-29 19:40:00 98 /min [facility] Body temperature 2024-07-29 16:40:00 36.39 Jeana [facility] Body height 2024-07-29 16:40:00 172.7 cm [facility] Body weight 2024-07-29 16:40:00 49.896 kg [facility] BMI 2024-07-29 16:40:00 16.73 kg/m2 [facility] Systolic blood pressure 2024-06-07 03:00:00 73 mm[Hg] [facility] Diastolic blood pressure 2024-06-07 03:00:00 64 mm[Hg] [facility] Body temperature 2024-06-07 03:00:00 36.61 Jeana [facility] Respiratory rate 2024-06-07 03:00:00 25 /min [facility] Oxygen saturation in Arterial blood by Pulse oximetry 2024-06-07 03:00:00 98 /min [facility] Heart rate 2024-06-07 00:52:00 67 /min [facility] Body height 2024-06-07 00:52:00 172.7 cm [facility] Body weight 2024-06-07 00:52:00 51.256 kg [facility] BMI 2024-06-07 00:52:00 17.18 kg/m2 [facility] Systolic blood pressure 2024-06-02 15:36:00 116 mm[Hg] Whitney Sesylvia - External Diastolic blood pressure 2024-06-02 15:36:00 [...] Systolic blood pressure 2022-11-28 17:50:00 104 mm[Hg] [facility] Diastolic blood pressure 2022-11-28 17:50:00 52 mm[Hg] [facility] Heart rate 2022-11-28 17:50:00 106 /min [facility] Body height 2022-11-28 17:50:00 172.7 cm [facility] Body weight 2022-11-28 17:50:00 62.551 kg [facility] BMI 2022-11-28 17:50:00 20.97 kg/m2 [facility] Oxygen saturation in Arterial blood by Pulse oximetry 2022-11-28 17:50:00 93 /min [facility] Systolic blood pressure 2022-10-20 14:09:00 108 mm[Hg] [facility] Diastolic blood pressure 2022-10-20 14:09:00 65 mm[Hg] [facility] Heart rate 2022-10-20 14:09:00 95 /min [facility] Body temperature 2022-10-20 14:09:00 37.06 Jeana [facility] Body height 2022-10-20 14:09:00 172.7 cm [facility] Body weight 2022-10-20 14:09:00 58.968 kg [facility] BMI 2022-10-20 14:09:00 19.77 kg/m2 [facility] Oxygen saturation in Arterial blood by Pulse oximetry 2022-10-20 14:09:00 98 /min [facility] Systolic blood pressure 2022-09-05 20:22:00 101 mm[Hg] [facility] Diastolic blood pressure 2022-09-05 20:22:00 64 mm[Hg] [facility] Heart rate 2022-09-05 20:22:00 62 /min [facility] Body temperature 2022-09-05 20:22:00 36.33 Jeana [facility] Body height 2022-09-05 20:22:00 172.7 cm [facility] Body weight 2022-09-05 20:22:00 56.337 kg [facility] BMI 2022-09-05 20:22:00 18.88 kg/m2 [facility] Oxygen saturation in Arterial blood by Pulse oximetry 2022-09-05 20:22:00 97 /min [facility] Systolic blood pressure 2022-09-03 05:40:00 110 mm[Hg] [facility] Diastolic blood pressure 2022-09-03 05:40:00 81 mm[Hg] [facility] Heart rate 2022-09-03 05:40:00 64 /min [facility] Body temperature 2022-09-03 05:40:00 37.22 Jeana [facility] Respiratory rate 2022-09-03 05:40:00 18 /min [facility] Body height 2022-09-03 05:40:00 172.7 cm [facility] Body weight 2022-09-03 05:40:00 57.153 kg [facility] BMI 2022-09-03 05:40:00 19.16 kg/m2 [facility] Oxygen saturation in Arterial blood by Pulse oximetry 2022-09-03 05:40:00 100 /min [facility] Systolic blood pressure 2022-09-02 17:17:00 114 mm[Hg] [facility] Diastolic blood pressure 2022-09-02 17:17:00 75 mm[Hg] [facility] Heart rate 2022-09-02 17:17:00 81 /min [facility] Body temperature 2022-09-02 17:17:00 36.61 Jeana [facility] Respiratory rate 2022-09-02 17:17:00 18 /min [facility] Oxygen saturation in Arterial blood by Pulse oximetry 2022-09-02 17:17:00 99 /min [facility] Body weight 2022-09-01 19:40:00 61 kg [facility] BMI 2022-09-01 19:40:00 20.45 kg/m2 [facility] Body height 2022-09-01 19:36:00 172.7 cm [facility] BP Systolic 2019-10-20 12:54:00 [...] Rate 2019-02-24 10:04:00 62 /min Quality: Normal [facility] Respiration Rate 2019-02-24 10:04:00 18 /min Quality: Normal [facility] O2 SAT 2019-02-24 10:04:00 100 % [...] [facility] Temperature 2019-02-07 10:53:00 98 [degF] [facility] Procedures Procedure Date / Time Performed Performing Clinician Source XR SHOULDER 2+ VW LEFT 2024-07-29 17:33:31 Donta Deluna [facility] CREATINE KINASE 2024-06-07 01:23:00 Trinidad Estrada [facility] MAGNESIUM 2024-06-07 01:23:00 Trinidad Estrada [facility] COMP. METABOLIC PANEL ([id number]) 2024-06-07 01:23:00 Trinidad Estrada [facility] CBC WITH DIFF 2024-06-07 01:23:00 [facility] 2024-06-07 01:23:00 Trinidad Estrada [facility] URINE DRUG (IMMUNOASSAY) - COMPREHENSIVE DRUG SCREEN W/O REFLEX 2024-06-07 01:23:00 Trinidad Estrada [facility] PATIENT FINANCIAL POLICY 2022-11-28 17:49:34 Doctor Unassigned, [place] [facility] EXTERNAL PROVIDER RECORDS 2022-11-19 06:01:00 Doctor Unassigned, [place] [facility] DEXA AXIAL (HIP AND SPINE) 2022-09-17 19:58:00 Kenya Fuentes [facility] EXTERNAL PROVIDER RECORDS 2022-09-16 06:01:00 Doctor Unassigned, [place] [facility] ASSIGNMENT OF BENEFITS 2022-09-05 19:47:49 Docto r Unassigned, [place] [facility] COMP. METABOLIC PANEL ([id number]) 2022-09-01 10:44:00 [facility] CBC WITH DIFF 2022-09-01 10:44:00 Nati Mitchell [facility] XR CHEST 1 VW 2022-09-01 10:15:00 Johann Cormier [facility] CREATINE KINASE 2022-08-31 09:35:00 Dolly Beasley [facility] MAGNESIUM 2022-08-31 09:35:[address] [facility] TROPONIN I 2022-08-31 09:35:[address] [facility] COMP. METABOLIC PANEL ([id number]) 2022-08-31 09:35:00 Jael Coppola [facility] SALICYLATE 2022-08-31 09:35:[address] [facility] ETHANOL 2022-08-31 09:35:[address] [facility] CBC WITH DIFF 2022-08-31 09:35:00 Jael Coppola [facility] URINE DRUG (IMMUNOASSAY) - COMPREHENSIVE DRUG SCREEN 2022-08-31 09:07:00 Jael Coppola [facility] URINE DRUG (LCMSMS) - COMPREHENSIVE DRUG PANEL 2022-08-31 09:07:00 Jael Coppola [facility] AC PANEL 20 + LACTIC ACID 2022-08-31 09:01:00 Jael Coppola [facility] XR CHEST 1 VW 2022-08-31 05:44:00 Jael Coppola [facility] XR KUB 2022-08-31 05:44:[address] [facility] AUTHORIZATION FOR RELEASE OF PHI 2020-08-21 06:01:00 Doctor Unassigned, [place] [facility] [[facility]] CBC (INCLUDES DIFF/PLT) 2019-10-20 00:00:00 [facility] [QL] CMP W/EGFR 2019-10-20 00:00:00 [facility] [QL] LIPID PANEL 2019-10-20 00:00:00 [facility] [QL] TSH, 3RD GENERATION 2019-10-20 00:00:00 [facility] [QH] DRUG SCREEN,COMPREHENSIVE (URINE) 2019-07-20 00:00:00 [facility] [Q] DRUG SCREEN,COMPREHENSIVE (URINE) 2019-02-24 00:00:00 [facility] Encounters Start Date/Time End Date/Time Encounter Type Admission Type Attending [facility] Care Department Encounter ID Source 2024-09-22 16:00:00 2024-09-22 16:00:00 Outpatient DELMI GRANT [id number] [facility] 2024-09-22 09:30:00 2024-09-22 09:30:00 Outpatient LABSanjay LAIRD [id number] [facility] 2024-09-22 00:00:00 2024-09-22 00:00:00 Outpatient BATESROGERS CARREON [id number] [facility] 2024-09-22 00:00:00 2024-09-22 00:00:00 Outpatient BATESROGERS CARREON [id number] [facility] 2024-09-22 00:00:00 2024-09-22 00:00:00 Outpatient BATESROGERS CARREON [id number] [facility] 2024-09-16 00:00:00 2024-09-16 00:00:00 Outpatient BATESROGERS CARREON [id number] [facility] 2024-09-16 00:00:00 2024-09-16 00:00:00 Out[facility] [id number] [facility]24-[facility] 11:05:00 2024-09-15 11:05:00 Outpatient LAB90 WHITNEY LAIRD [id number] [facility] 2024-09-15 10:00:00 2024-09-15 10:00:00 Outpatient [facility]ERS CARRE[facility] [id number] [facility] 2024-[facility]-15 00:00:00 2024-09-15 00:00:00 Outpatient ALEJANDRA WESLEY WHITNEY LAIRD [id number] [facility] 2024-08-24 00:00:00 2024-08-24 00:00:00 Outpatient NICK GAINES WHITNEY LAIRD [id number] [facility] 2024-07-29 11:41:00 2024-07-29 15:18:00 Emergency X [facility] [id number] [facility] 2024-07-29 11:41:00 2024-07-29 15:18:00 Emergency [facility] Del[facility] 1.2.840.114 350.1.13.10 4.2.7.2.[id number] [facility] 2024-06-09 09:30:00 2024-06-09 09:30:00 Outpatient VERNON SAMANIEGO [id number] [facility] 2024-06-08 00:00:00 2024-06-08 00:00:00 Outpatient VERNON SAMANIEGO [id number] [facility] 2024-06-07 00:00:00 2024-06-07 00:00:00 Outpatient IHSAN CHEN [id number] [facility] 2024-06-06 20:03:00 2024-06-06 22:17:00 Emergency X TRINIDAD ESTRADA SANDR[facility] [id number] [facility] 2024-06-06 20:03:00 2024-06-06 22:17:00 Emergency Trinidad Estr[facility] 1.2.840.114 350.1.13.10 4.2.7.2.[id number] [facility] 2024-06-02 11:20:00 2024-06-02 11:20:00 Outpatient LABAravind WHITNEY LAIRD [id number] [facility] 2024-06-02 10:30:00 2024-06-02 10:30:00 Outpatient IHSAN CHEN WHITNEY [id number] [facility] 2024-05-18 15:15:00 2024-05-18 15:15:00 Outpatient ALLEN CANNON WHITNEY [id number] [facility] 2024-05-18 15:15:00 2024-05-18 15:15:00 Outpatient ALLEN CANNON WHITNEY LAIRD [id number] [facility] 2023-04-24 11:00:00 2023-04-24 11:00:00 Outpatient R DONTA HAYNES [facility] [id number] [facility] 2022-12-30 00:00:00 2022-12-30 00:00:00 Telephone Donta Haynes [facility] 1..840.114 350.1.13.10 4.2.7.2.[id number] [facility] 2022-12-03 14:00:00 2022-12-03 14:00:00 Outpatient R KENYA FUENTES [facility] [id number] [facility] 2022-12-02 00:00:00 2022-12-02 00:00:00 Telephone Kenya Fuentes [facility] 1.2.840.114 350.1.13.10 4.2.7.2.[id number] [facility] 2022-11-28 12:00:00 2022-11-28 13:03:08 Outpatient R DONTA HAYNES [facility] [id number] [facility] 2022-11-28 12:00:00 2022-11-28 13:03:08 Office Visit Donta Haynes [facility] 1.2.840.114 350.1.13.10 4.2.7.2.[id number] [facility] 2022-11-28 00:00:00 2022-11-28 00:00:00 Orders Only Doctor Unassigned, [place] [facility] 1.20.114 350.1.13.10 4.2.7.2.[id number] [facility] 2022-11-19 00:00:00 2022-11-19 00:00:00 Orders Only Doctor Unassigned, [place] [facility] 1.20.114 350.1.13.10 4.2.7.2.[id number] [facility] 2022-10-20 08:00:00 2022-10-20 08:45:36 Outpatient R ALFREDO KENYA [facility] [id number] [facility] 2022-10-20 08:00:00 2022-10-20 08:45:36 Office Visit Alfredo Kenya [facility] 1.84.114 350.1.13.10 4.2.7.2.[id number] [facility] 2022-09-23 00:00:00 2022-09-23 00:00:00 Telephone Chloeradha Kenya [facility] [id number] 350.1.13.10 4.2.7.2.[id number] [facility] 2022-09-17 13:39:39 2022-09-17 23:59:00 Outpatient R KENYA FUENTES [facility] [id number] [facility] 2022-09-17 13:39:39 2022-09-17 23:59:00 Hospital Encounter Alfredo Kenya [facility] 1.0.114 350.1.13.10 4.2.7.2.[id number] [facility] 2022-09-16 00:00:00 2022-09-16 00:00:00 Orders Only Doctor Unassigned, [place] [facility] 1.2840.114 350.1.13.10 4.2.7.2.[id number] [facility] 2022-09-05 14:00:00 2022-09-05 14:51:04 Outpatient R ALFREDO KENYA [facility] [id number] [facility] 2022-09-05 14:00:00 2022-09-05 14:51:04 Office Visit Chloeradha Kenya [facility] 1.2840.114 350.1.13.10 4.2.7.2.[id number] [facility] 2022-09-05 00:00:00 2022-09-05 00:00:00 Orders Only Doctor Unassigned, [place] [facility] 1.2840.114 350.1.13.10 4.2.7.2.[id number] [facility] 2022-09-03 00:00:00 2022-09-03 00:00:00 Transition of Care Marilu Steiner [facility]ULL[facility] AYDE[facility] 1.2.840.114 350.1.13.10 4.2.7.2.[id number] [facility] 2022-09-02 23:43:00 2022-09-02 23:56:00 Emergency X TRINIDAD ESTRADA [facility] [id number] [facility] 2022-09-02 23:43:00 2022-09-02 23:56:00 Emergency Trinidad Estrada [facility] 1.2840.114 350.1.13.10 4.2.7.2.[id number] [facility] 2022-08-30 22:42:00 2022-09-02 15:34:00 Inpatient X MICHAEL ASHRAF [facility] MOOSE [id number] [facility] 2022-08-30 22:42:00 2022-09-02 15:34:00 Hospital Encounter Campbell Guerrero Dipak Barillasderek, Ayaan Ashraf, Michael [facility] 1.2.840.114 350.1.13.10 4.2.7.2.[id number] [facility] 2020-08-21 00:00:00 2020-08-21 00:00:00 Orders Only Doctor Unassigned, [place] [facility] 1.2.840.114 350.1.13.10 4.2.7.2.686 [id number] 2020-08-21 00:00:00 2020-08-21 00:00:00 Orders Only Doctor Unassigned, [place] [facility] 1.2.840.114 350.1.13.10 4.2.7.2.[id number] [facility] 2019-12-08 13:05:19 2019-12-08 14:05:19 Office Visit Kim Patel [facility] 1.2.840.114 350.1.13.10 4.2.7.2.686 [id number] 2019-12-08 13:05:19 2019-12-08 14:05:19 Office Visit Kim Patel [facility] [place] 1.2.840.114 350.1.13.10 4.2.7.2.[id number] [facility] 2019-12-08 13:15:00 2019-12-08 13:15:00 Outpatient R [facility] [id number] [facility] 2019-10-20 13:00:00 2019-10-20 13:00:00 Ronnie palencia; JAZMYN ESPINAL M.D. MEMON, SABA, M.D. [facility] [id number] [facility] 2019-07-20 13:00:00 2019-07-20 13:00:00 Appointmen t; JAZMYN ESPINAL M.D. MEMON, SABA, M.D. [facility] Psych[facility] Out[facility] - [facility] [id number] [facility] 2019-06-08 00:00:00 2019-06-08 00:00:00 Telephone Kim Patel [facility] [place] 1.2.840.114 350.1.13.10 4.2.7.2.[id number] [facility] 2019-02-24 10:00:00 2019-02-24 10:00:00 Appointdena t; JAZMYN ESPINAL M.D. MEMON, SABA, M.D. [facility] [id number] [facility] 2019-02-07 10:20:00 2019-02-07 10:20:00 Appointdena t; CHANCE VAZQUEZ APRN WILLIAMSON, TIFFINY, APRN [facility] [id number] [facility] Results Test Description Test Time Test Comments Results Resul t Comments Source XR SHOULDER 2+ VW LEFT 2024-07-29 18:46:43 ORDERING PHYSICIAN: DONTA DELUNA HISTORY: ?pain TECHNIQUE:Three views of the left shoulder . Technical quality: Diagnostic. COMPARISON: None FINDINGS: There is no fracture or dislocation. ? ?Soft tissues are unremarkable. [facility] ([id number])2024-06-07 01:51:42* Test Item Value Reference Range Interpretation Comme nts NA (test code = 0215200394) 138 mmol/L 135-145 K (test code = 6528096812) 3.6 mmol/L 3.5-5.0 CL (test code = 0416362278) 101 mmol/L 98-108 CO2 TOTAL (test code = 4761321141) 26 mmol/L 23-31 AGAP (test code = 3869662686) 11 2-16 BUN (test code = 9376285209) 7 mg/dL 7-23 GLUCOSE (test code = 9988467023) 98 mg/dL 70-110 CREATININE (test code = 2160-0) 0.84 mg/dL 0.60-1.25 TOTAL BILI (test code = 4483393792) 1.4 mg/dL 0.1-1.1 H CALCIUM (test code = 6663113395) 9.4 mg/dL 8.6-10.6 T PROTEIN (test code = 2222655723) 7.3 g/dL 6.3-8.2 ALBUMIN (test code = 4581811889) 4.6 g/dL 3.5-5.0 ALK PHOS (test code = 4767841413) 109 U/L 34-122 ALTv (test code = 1742-6) 18 U/L 5-50 AST(SGOT) (test code = 0306873677) 23 U/L 13-40 eGFR (test code = 40004-5) 127.2 mL/min/1.73m2 CKD-EPI eGFR (2020). Assuming creatinine has been stable day-to-day for at least three months, the eGFR indicates Category G1 (>= 90 mL/min/1.73 m2) Lab Interpretation (test code = 22103-5) [facility] [id number] 01:51:22* Test Item Value Reference Range Interpretation Comme nts CK (test code = 2582917608) 195 U/L 33-194 H Lab Interpretation (test cod e = 18247-5) [facility]normal [facility] WITH [id number] 01:40:20* Test Item Value Reference Range Interpretation [...] 33.7 g/dL 31.2-35.0 RDW-SD (test code = 60702-8) 44.1 fL 38.5-51.6 RDW-CV (test code = 788-0) 13.2 % 12.1-15.4 PLT (test code = 777-3) 266 150-328 MPV (test code = 29861-1) 10.2 fL 9.8-13.0 NRBC/100 WBC (test code = 0751805516) 0.0 0.0-10.0 NRBC x10^3 (test code = 8310471902) See_Comment [Automated message] The system which generated this result transmitted reference range: 10*3/?L. The reference range was not used to interpret this result as normal/abnormal. GRAN MAT (NEUT) % (test code = 770-8) 75.6 % IMM GRAN % (test code = 8110341118) 0.40 % LYMPH % (test code = 736-9) 12.1 % MONO % (test code = 5905-5) 10.5 % EOS % (test code = 713-8) 0.9 % BASO % (test code = 706-2) 0.5 % GRAN MAT x10^3(ANC) (test code = 6808271878) 10.09 10*3/uL 1.99-6.95 H IMM GRAN x10^3 (test code = 1017609800) 0.06 10*3/uL 0.00-0.06 LYMPH x10^3 (test code = 731-0) 1.61 10*3/uL 1.09-3.23 MONO x10^3 (test code = 742-7) 1.40 10*3/uL 0.36-1.02 H EOS x10^3 (test code = 711-2) 0.12 10*3/uL 0.06-0.53 BASO x10^3 (test code = 704-7) 0.07 10*3/uL 0.01-0.09 Lab Interpretation (test code = 72926-4) [facility] METABOLIC PANEL ([id number])2022-09-01 11:26:16* Test Item Value Reference Range Interpretation Comme nts NA (test code = 8299748276) 138 mmol/L 135-145 K (test code = 5265099286) 3.5 mmol/L 3.5-5.0 Slight hemolysis CL (test code = 1684838003) 110 mmol/L 98-108 H CO2 TOTAL (test code = 3108327052) 26 mmol/L 23-31 AGAP (test code = 6074627077) 2-16 BUN (test code = 8482507585) 9 mg/dL 7-23 Slight hemolysis GLUCOSE (test code = 4374958004) 99 mg/dL 70-110 CREATININE (test code = 6403916730) 0.73 mg/dL 0.60-1.25 TOTAL BILI (test code = 3573223404) 0.9 mg/dL 0.1-1.1 CALCIUM (test code = 2554395020) 8.2 mg/dL 8.6-10.6 L T PROTEIN (test code = 5120873819) 5.5 g/dL 6.3-8.2 L ALBUMIN (test code = 9754580347) 3.3 g/dL 3.5-5.0 L ALK PHOS (test code = 0095958567) 75 U/L 34-122 Slight hemolysis ALTv (test code = 1742-6) 16 U/L 5-50 AST(SGOT) (test code = 0757019017) 30 U/L 13-40 Slight hemolysis eGFR (test code = 7987106245) mL/min/1.73m2 KACI (test code = KACI) Association [...] imaging tests). Lab Interpretation (test code = 49102-9) Abnormal [facility] WITH [id number] 11:03:17* Test Item Value Reference Range Interpretation Comme nts WBC (test code = 6690-2) See_Comment [Automated [employer]] The system which generated this result transmitted reference range: 4.20 - 10.70 10*3/?L. The reference range was not used to interpret this result as normal/abnormal. RBC (test code = 789-8) See_Comment L [Automated [employer]] The system which generated this result transmitted [...] g/dL 31.2-35.0 H RDW-SD (test code = 83468-5) 41.7 fL 38.5-51.6 RDW-CV (test code = 788-0) 13.2 % 12.1-15.4 PLT (test code = 777-3) See_Comment [Automated [employer]] The system which generated this result transmitted reference range: 150 - 328 10*3/?L. The reference range was not used to interpret this result as normal/abnormal. MPV (test code = 84275-8) 11.9 fL 9.8-13.0 NRBC/100 WBC (test code = 7424627628) See_Comment [Automated me ssage] The system which generated this result transmitted reference range: 0.0 - 10.0 /100 WBCs. The reference range was not used to interpret this result as normal/abnormal. NRBC x10^3 (test code = 3980357909) See_Comment [Automated messa ge] The system which generated this result transmitted reference range: 10*3/?L. The reference range was not used to interpret this result as normal/abnormal. GRAN MAT (NEUT) % (test code = 770-8) 62.3 % IMM GRAN % (test code = 2567132650) 0.20 % LYMPH % (test code = 736-9) 25.7 % MONO % (test code = 5905-5) 8.0 % EOS % (test code = 713-8) 3.4 % BASO % (test code = 706-2) 0.4 % GRAN MAT x10^3(ANC) (test code = 3509463328) 5.01 10*3/uL 1.99-6.95 IMM GRAN x10^3 (test code = 7243771879) 0.00-0.06 LYMPH x10^3 (test code = 731-0) 2.07 10*3/uL 1.09-3.23 MONO x10^3 (test code = 742-7) 0.64 10*3/uL 0.36-1.02 EOS x10^3 (test code = 711-2) 0.27 10*3/uL 0.06-0.53 BASO x10^3 (test code = 704-7) 0.03 10*3/uL 0.01-0.09 Lab Interpretation (test code = 49619-5) Abnormal [facility] CenterCREATINE [id number] 17:58:42* Test Item Value Reference Range Interpretation Comme nts CK (test code = 5047848751) 180 U/L 33-194 Lab Interpretation (test cod e = 50826-0) Normal [facility] CenterTROPONIN [id number] 11:09:00* Test Item Value Reference Range Interpretation Comments TROPONIN I (test code = 4851013360) 0.001 ng/mL See_Comment [Automated message] The system [...] of biotin. Lab Interpretation (test code = 09101-2) Normal [facility] CenterSALICYLATE2022-12-04 10:59:14 SALICYLATE<10mg/L111/01/2021 4:59 AM [facility]STUTMB LABORATORY SERVICESTherapeutic Range: ? Analgesic and Antipyretic Use ? 20-100 mg/L ? ? Anti- Inflammatory Use ? 100-250 mg/LToxic Range: ? Greater than 300 mg/LUnTexas [facility]ite [facility] for ChildrenETHANOL2022-12-04 10:59:14ALCOHOL<10mg/dL08/31/2022 4:59 AM CSTUTMB LABORATORY SERVICESToxic Greater than or equal to 80 mg/dL. NOTE: Whole blood values are approximately 10% to 15% lower than serum and plasma.[facility] [id number] 10:59:09* Test Item Value Reference Range Interpretation Comme nts ACETAMINOP (test code = 5073012010) 10.0-30.0 L KACI (test code = KACI) Toxic: Greater mamie n 200 ug/mL @ 4 hour post ingestion or greater than 50 ug/mL @ 12 hour post ingestion Lab Interpretation (test code = 28003-3) Abnormal [facility] CenterMAGNESIUM2022-12-04 10:58:19* Test Item Value Reference Range Interpretation Comme nts MAGNESIUM (test code = 5042308481) 1.8 mg/dL 1.7-2.4 Lab Interpretation (test cod e = 97303-2) Normal [facility] CenterCOMP. METABOLIC PANEL (30231)2022-08-31 10:58:18* Test Item Value Reference Range Interpretation Comme nts NA (test code = 4298594752) 141 mmol/L 135-145 K (test code = 7320198702) 4.0 mmol/L 3.5-5.0 CL (test code = 6922400062) 110 mmol/L 98-108 H CO2 TOTAL (test code = 2282273808) 25 mmol/L 23-31 AGAP (test code = 6852695780) 2-16 BUN (test code = 2823666363) 5 mg/dL 7-23 L GLUCOSE (test code = 0249235806) 80 mg/dL 70-110 CREATININE (test code = 0612909440) 0.71 mg/dL 0.60-1.25 TOTAL BILI (test code = 7068335517) 0.5 mg/dL 0.1-1.1 CALCIUM (test code = 1477110820) 7.7 mg/dL 8.6-10.6 L T PROTEIN (test code = 8651197193) 5.2 g/dL 6.3-8.2 L ALBUMIN (test code = 2938498393) 3.3 g/dL 3.5-5.0 L ALK PHOS (test code = 7542881431) 71 U/L 34-122 ALTv (test code = 1742-6) 16 U/L 5-50 AST(SGOT) (test code = 1779240740) 23 U/L 13-40 eGFR (test code = 7418939146) mL/min/1.73m2 KACI (test code = KACI) Association [...] imaging tests). Lab Interpretation (test code = 69011-4) Abnormal [facility] WITH [id number] 09:52:32* Test Item Value Reference Range Interpretation [...] 33.8 g/dL 31.2-35.0 RDW-SD (test code = 87101-7) 41.1 fL 38.5-51.6 RDW-CV (test code = 788-0) 12.9 % 12.1-15.4 PLT (test code = 777-3) See_Comment [Automated message] The system which generated this result transmitted reference range: 150 - 328 10*3/?L. The reference range was not used to interpret this result as normal/abnormal. MPV (test code = 39676-8) 11.1 fL 9.8-13.0 NRBC/100 WBC (test code = 4710544239) See_Comment [Automated message] The system which generated this result transmitted reference range: 0.0 - 10.0 /100 WBCs. The reference range was not used to interpret this result as normal/abnormal. NRBC x10^3 (test code = 6029787348) See_Comment [Automated message] The system which generated this result transmitted reference range: 10*3/?L. The reference range was not used to interpret this result as normal/abnormal. GRAN MAT (NEUT) % (test code = 770-8) 90.1 % IMM GRAN % (test code = 0831098100) 0.40 % LYMPH % (test code = 736-9) 5.4 % MONO % (test code = 5905-5) 3.8 % EOS % (test code = 713-8) 0.1 % BASO % (test code = 706-2) 0.2 % GRAN MAT x10^3(ANC) (test code = 7853285563) 14.75 10*3/uL 1.99-6.95 H IMM GRAN x10^3 (test code = 6783286612) 0.06 10*3/uL 0.00-0.06 LYMPH x10^3 (test code = 731-0) 0.88 10*3/uL 1.09-3.23 L MONO x10^3 (test code = 742-7) 0.62 10*3/uL 0.36-1.02 EOS x10^3 (test code = 711-2) 0.06-0.53 L BASO x10^3 (test code = 704-7) 0.03 10*3/uL 0.01-0.09 Lab Interpretation (test code = 69029-3) [facility]normal [facility] CenterAC Panel 20 + Lactic [id number] 09:16:12* Test Item Value Reference Range Interpretation Comme nts PH (test code = 2) 7.35-7.45 PCO2 (test code = 1522247127) See_Comment [Automated messa ge] The system which generated this result transmitted reference range: 35 - 45 mmHg. The reference range was not used to interpret this result as normal/abnormal. PO2 (test code = 1679433300) See_Comment H [Automated messa ge] The system which generated this result transmitted reference range: 80 - 100 mmHg. The reference range was not used to interpret this result as normal/abnormal. HCO3 (test code = 3512231896) See_Comment L [Automated messa ge] The system which generated this result transmitted reference range: 22 - 26 mEq/L. The reference range was not used to interpret this result as normal/abnormal. BE (test code = 8168603904) See_Comment L [Automated messa ge] The system which generated this result transmitted reference range: -3.0 - 3.0 mEq/L. The reference range was not used to interpret this result as normal/abnormal. THB (test code = 8336737469) 13.2 g/dL 13.5-18.0 L %O2HB (test code = 3921855766) 98.8 % 94.0-99.0 %COHB ART (test code = 4317186857) 0.3 % 0.0-1.5 %METHB ART (test code = 4859641680) 0.2 % 0.4-1.5 L VOL%O2 ART (test code = 2267129908) 18.8 % 15.0-23.0 NA (test code = 3614649160) 139 mmol/L 135-145 K+ (test code = 7952861670) 3.9 mmol/L 3.5-5.0 AC CA IONZ (test code = 6596920951) 4.60 mg/dL 4.50-5.30 GLUCOSE (test code = 7665965555) 88 mg/dL 70-110 LACTIC ACID (test code = 3452857650) 1.04 mmol/L 0.50-2.20 Lab Interpretation (test code = 59345-8) Abnormal [facility][H] Drug Screen Urine (9 [...] Negative Urine Propoxyphene Screen (test code = 11488-0) Negative Negative Urine Drug Screen Note (test [...] 50 ng/mLMethadone 300 ng/mLUrine alcohol 20 mg/dL [facility][H] Drug Screen Urine (9 Drugs)2019-02-24 13:44:01* [...] Negative Urine Propoxyphene Screen (test code = 07511-6) Negative Negative Urine Drug Screen Note (test [...] 50 ng/mLMethadone 300 ng/mLUrine alcohol 20 mg/dL [facility]"
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
[2024-09-29 22:41] VITALS: BP 138/85; TEMP 98; O2SAT 98
== END 2024-09-29 18:13 | disposition home or self-care (01) ==
LOC: ER 17:04
DX: T76.21XA Adult sexual abuse, suspected, initial encounter (principal); F31.9 Bipolar disorder, unspecified; F90.9 Attention-deficit hyperactivity disorder, unspecified type; F50.82 Avoidant/restrictive food intake disorder; Z68.1 Body mass index [BMI] 19.9 or less, adult; F17.210 Nicotine dependence, cigarettes, uncomplicated
CPT/HCPCS: 99282

== ENCOUNTER 2024-12-24 14:15 | Emergency (ER) | payer OTHER ==
--- OUTSIDE RECORDS SUMMARY | 2024-12-24 14:21 | XMS REPORT | Continuity of Care Document ---
Author Name Unknown Address [address] [facility] [place] [address] [facility] Address [address] [facility] [place] [address] Care Team Providers Care Security And Compliance Analyst Name Role Phone KENYA FUENTES Primary Care Physician Unavailab ROGERS Shahid Attending Clinician Unavailable [facility] Attending Clinician Unavailabl e LAB90 Attending Clinician Unavailable ALEJANDRA WESLEY Attending Clinician Unavailable NICK GAINES Attending Clinician Unavailable DONTA DELUNA Attending Clinician Unavailable Donta Cope Attending Clinician [phone] VERNON SAMANIEGO Attending Clinician UnavailIHSAN Pineda Attending Clinician UnavailTRINIDAD Tan Attending Clinician Unavailab TRINIDAD Ponce Attending Clinician UnavailTrinidad Sandhu DO Attending Clinician [phone] LAB47 Attending Clinician Unavailable ALLEN CANNON Attending Clinician Unavailable KENYA FUENTES Attending Clinician Unavailable DONTA HAYNES Attending Clinician UnavailDonta Raphael MD Attending Clinician [phone] CRISTINA AZUL Attending Clinician UnavailKenya Lazcano Attending Clinician [phone] Doctor Unassigned, Mccune Attending Clinician U Marilu Bingham LVN Attending Clinician [phone] MICHAEL ASHRAF Attending Clinician Unavailable Campbell Guerrero MD Attending Clinician [phone] Ayaan Yung DO Attending Clinician [phone] Michael Ashraf DO Attending Clinician [phone] Oxana PALACIOS, Kim Alicea Attending Clinician [phone] KIM PATEL Attending Clinician UnavailJAZMYN Spence M.D. Attending Clinician UnavailCHANCE Lima APRN Attending Clinician Un available DONTA DELUNA Admitting Clinician Unavailable KENYA FUENTES Admitting Clinician Unavailable CAMPBELL GUERRERO Admitting Clinician Unava ilable Ayaan Yung DO Admitting Clinician [phone] Payers Payer Name Policy Type Policy Number Effective Date Expirati on Date Source [facility] LA[facility] TAMAYO COPAY FOCUS 9 [id number] 2024 00:00:00 [facility] [id number] 2023 00:00:00 [facility] [id number] 2018 00:00:00 Problems Condition Name Condition Details Condition Category Status Onset Date Resolution Date Last Treatment Date Treating Clinician Comments Source Bipolar affective disorder, remission status unspecifie d (multi HCC) Bipolar affective disorder, remission status unspecifie d (multi HCC) Disease Active 2023-09 00:00: 00 Whitney sierra Need for hepatitis C screening test Need for hepatitis C screening test Disease Active 10-20 00:00: 00 [facility] acute hospital Low bone density for age Low bone density for age Disease Active 10-20 00:00: 00 Whitney sierra Encounter to establish care Encounter to establish care Disease Active 2021-09 00:00: 00 General acute hospital RLS (restless legs syndrome) RLS (restless legs syndrome) Disease Active 2021-09 00:00: 00 General acute hospital BMI less than 19,adult BMI less than 19,adult Disease Active 2021-09 00:00: 00 [facility] acute hospital Encounter to establish care Encounter to establish care Disease Active 2021-09 00:00: 00 [facility] acute hospital Drug overdose of undetermin ed intent, initial encounter Drug overdose of undetermin ed intent, initial encounter Disease Active 2021-09 00:00: 00 [facility] acute hospital Bipolar 1 disorder, mixed anxiety-de pression, moderate Bipolar 1 disorder, mixed anxiety-de pression, moderate Disease Recurre nce 02-23 00:00: 00 [facility] acute hospital Anxiety Anxiety Disease Active 02-23 00:00: 00 [facility] acute hospital Underweigh t in childhood with BMI < 5th percentile Underweigh t in childhood with BMI < 5th percentile Disease Active 2017-09 00:00: 00 [facility] acute hospital 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 Disease Active 04-19 00:00: 00 General acute hospital 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 Disease Active 04-19 00:00: 00 Whitney sierra Nicotine abuse Nicotine abuse Disease Active 01-10 00:00: 00 General acute hospital Marijuana abuse, continuous Marijuana abuse, continuous Disease Active 01-10 00:00: 00 General acute hospital Attention deficit hyperactiv ity disorder (ADHD) Attention [...] 2017-09- 00:00: 00 2019-08-18 00:00:00 2019-08-18 10:02:15 General acute hospital Bipolar 2 disorder, major depressive episode Bipolar 2 disorder, major depressive episode Disease Resolve d 2017-09 00:00: 00 2019-02-23 00:00:00 2019-02-23 15:24:57 General acute hospital Episode of recurrent major depressive disorder Episode of recurrent major depressive disorder Disease Resolve d 04-19 00:00: 00 2019-02-23 00:00:00 2019-02-23 15:25:05 General acute hospital Esophageal reflux Esophageal reflux Disease Resolve d 2008-09 00:00: 00 2016-06-15 00:00:00 2016-06-15 20:21:02 General acute hospital SENSORY DISORDER SENSORY DISORDER Disease Resolve d 2006-09 00:00: 00 2016-06-15 00:00:00 2016-06-15 20:21:09 General acute hospital Bipolar disorder Bipolar disorder Disease Resolve d 2006-09 00:00: 00 2009-06-29 00:00:00 2022-04-13 00:12:08 General acute hospital Nonorganic enuresis Nonorganic enuresis Disease Resolve d 2006-09 00:00: 00 2009-05-18 00:00:00 2009-05-18 17:51:16 General acute hospital ASPERGER - continue to evaluate for ASPERGER - continue to evaluate for Disease Resolve d 2006-09 00:00: 00 2007-10-20 00:00:00 2007-10-20 16:52:33 General acute hospital Allergies, Adverse Reactions, Alerts Allergy Name Allergy Type Status Severity Reaction(s) Onset Date Inactive Date Treating Clinician Comments Source NO KNOWN ALLERGIE S Drug Class Active General acute hospital Social History Social Habit Start Date Stop Date Quantity Comments [facility] intake 2024-09-15 00:00:00 2024-09-15 00:00:00 Ex-drinker (finding) Whitney Bairdricotito Rahman External Alcohol Comment 2024-09-15 00:00:00 2024-09-15 00:00:00 socially Whitney Bairdricotito Negrete Sex 2023-10-24 09:41:35 2023-10-24 09:41:35 Male (finding) Whitney Bairdricotito - External Exposure to SARS-CoV-2 (event) 2022-11-18 00:00:00 2022-11-28 11:48:00 Not sure [facility] Alcohol intake 2022-10-20 00:00:00 2022-10-20 00:00:00 Current non-drinker of alcohol (finding) [facility] Tobacco Comment 2022-09-05 00:00:00 2022-09-05 00:00:00 Vapes [facility] Tobacco use and exposure 2022-09-05 00:00:00 2022-09-05 00:00:00 Smokeless tobacco non-user [facility] Cigarettes smoked current (pack per day) - Reported 2022-09-05 00:00:00 2022-09-05 00:00:00 [facility] History of Social function 2019-04-07 00:00:00 2019-04-07 00:00:00 [facility] History of tobacco use 2018-07-08 00:00:00 Cigarette Smoker [facility] Sex assigned at 2002 00:00:00 2000 00:00:00 Whitney Negrete Smoking Status Start Date Stop Date Source Tobacco smoking consumption unknown Whitney Bairdricotito Josiah Negrete Never smoked tobacco Whitney Bairdricotito Josiah External Smokes tobacco daily 2022-09-05 00:00:00 [facility] Ex-smoker 2022-09-01 00:00:00 2022-09-01 00:00:00 [facility] Medications Ordered Medication Name Filled Medication Name Start Date Stop Date Current Medication? Ordering Clinician Indication Dosage Frequency Signature (SIG) Comments Components Source Gabapentin 600 MG oral Tablet 2023-09 11:00: 30 09-15 00:00 :00 No [id number] 600mg Q.25D Take 1 tablet (600 mg total) by mouth 4 times daily as needed. Whitney sierra Paroxetine HCl 30 MG oral Tablet 2023-09 10:36: 06 Yes [id number] 30mg Take 1 tablet (30 mg total) by mouth after breakfast and after evening meal. Whitney sierra Lorazepam 1 MG oral Tablet 2023-09 10:35: 13 Yes [id number] 1mg Q.25D Take 1 tablet (1 mg total) by mouth every 6 hours as needed for anxiety. Whitney sierra Olanzapine (ZyPREXA) 15 MG oral Tablet 2023-09 10:35: 13 Yes [id number] QD Take by mouth daily. Whitney sierra Gabapentin 300 MG oral Capsule 2023-09 00:00: 00 Yes [id number] 300mg Q.[id number] 3D Take 1 capsule (300 mg total) by mouth 3 times daily. Whitney sierra Gabapentin 600 MG oral Tablet 2023-09 00:00: 00 09-15 00:00 :00 No [id number] 300mg Q.[id number] 3D Take 0.5 tablets (300 mg total) [...] 1 dose, On Thu06/06/24 at 2100, MARIBEL [facility] acute hospital hydrOXYzine (ATARAX) tablet 25 mg 06-07 01:45: 00 06-07 02:06 :00 No 25mg 25 mg, Oral, ONCE, 1 dose, On Thu06/06/24 at 2045, MARIBEL [facility] acute hospital ondansetron (ZOFRAN) 4 mg tablet 07 00:00: 00 12-13 04:59 :00 No [id number] 4mg Take 1 tablet by mouth every 8 (eight) hours as needed for Nausea and Vomiting (N/V) for up to 10 days. General acute hospital OXcarbazepi ne 600 mg tablet 2021-09 14:31: 18 09-05 00:00 :00 No 600mg Take 600 mg by mouth 2 (two) times daily. [facility] acute hospital LORazepam 1 mg Cp24 2021-09 14:27: 07 09-05 00:00 :00 No 1mg Take 1 mg by mouth 2 (two) times daily. General acute hospital olanzapine (ZYPREXA ORAL) 2021-09 14:26: 27 Yes Take by mouth 2 (two) times daily. [facility] General acute hospital gabapentin 600 mg tablet 2021-09 14:26: 27 Yes 600mg Take 600 mg by mouth in the morning and 600 mg at noon and 600 mg in the evening. General acute hospital SERTraline 100 mg tablet 2021-09 14:19: 22 09-05 00:00 :00 No 100mg Take 100 mg by mouth daily. [facility] acute hospital nicotine (NICODERM) 21 mg/24 hr patch 1 Patch 2021-09 19:45: 00 Yes 1{patch } 1 Patch, Topical, Administer over 24 Hours, Q24H, First dose on Thu09/02/22 at 1345, Until Discontinu ed, Routine [facility] acute hospital hydrOXYzine (ATARAX) tablet 10 mg 2021-09 19:30: 00 09-02 18:49 :00 No 10mg 10 mg, Oral, ONCE, 1 dose, On Thu09/02/22 at 1330, Routine [facility] gabapentin 600 mg tablet 2021-09 17:34: 50 Yes 600mg Take 600 mg by mouth in the morning and 600 mg at noon and 600 mg in the evening. General acute hospital OXcarbazepi ne 600 mg tablet 2021-09 15:34: 48 Yes 600mg Take 600 mg by mouth 2 (two) times daily. General acute hospital SERTraline 100 mg tablet 2021-09 15:34: 48 Yes 100mg Take 100 mg by mouth daily. [facility] Apr 2019 General acute hospital olanzapine (ZYPREXA ORAL) 2021-09 15:34: 48 Yes Take by mouth 2 (two) times daily. [facility] Apr [facility] General acute hospital LORazepam 1 mg Cp24 2021-09 15:34: 48 Yes 1mg Take 1 mg by mouth 2 (two) times daily. General acute hospital gabapentin 600 mg tablet 2021-09 15:34: 48 Yes 600mg Take 600 mg by mouth in the morning and 600 mg at noon and 600 mg in the evening. General acute hospital LORazepam (ATIVAN) tablet 1 mg 2021-09 15:00: 00 Yes 1mg 1 mg, Oral, QAM, First dose on Thu09/02/22 at 0900, Until Discontinu ed, Routine [facility] OLANZapine (ZyPREXA) tablet 15 mg 2021-09 03:00: 00 Yes 15mg 15 mg, Oral, QHS, First dose on Thu09/01/22 at 2100, Until Discontinu ed, [facility] PAR[facility] (PAXIL[facility] 20 mg 2021-09 03:00: 00 Yes 20mg 20 mg, Oral, QHS, First dose on Thu09/01/22 at 2100, Until Discontinu ed, [facility] g[facility] (NEURONTIN) tablet 600 mg 2021-09 02:00: 00 Yes 600mg 600 mg, Oral, TID, First dose on Thu09/01/22 at 2000, Until Discontinu ed, Routine [facility] it[facility] acetaminoph en (TYLENOL) tablet 325 mg 2021-09 23:49: 00 09-02 00:20 :00 No 325mg 325 mg, Oral, ONCE, 1 dose, On Thu09/01/22 at 1800, Routine Univers ity [facility] clonazePAM (KLONOPIN) tablet 1 mg 2021-09 16:15: 00 Yes 1mg 1 mg, Oral, Q8H, First dose (after last modificati on) on Thu09/01/22 at 1015, Until Discontinu ed, Routine [facility] it[facility] ketamine (KETALAR) injection 50 mg 2021-09 23:30: 00 08-31 07:04 :00 No 50mg 50 mg, Slow IV Push, ONCE, 1 dose, On Thu08/31/22 at 1730, Routine [facility] clonazePAM 0.1 mg/mL oral suspension 1 mg 2021-09 20:00: 00 09-01 14:29 :11 No 1mg 1 mg, Oral, TID, First dose on Thu08/31/22 at 1400, Until Discontinu ed, Routine [facility] midazolam (VERSED) STD 50mg in NaCl 0.9% [...] at maximum allowed dose, contact prescriber .
General acute hospital enoxaparin (LOVENOX) injection 40 mg 2021-09 15:00: 00 Yes 40mg 40 mg, Subcutaneo us, DAILY, First dose on Thu08/31/22 at 0900, Until Discontinu ed, Routine [facility] acute hospital dexMEDEtomi dine 200 mcg in 0.9 % NaCl 50 mL (PRECEDEX) RTU IV infusion 2021-09 14:33: 19 09-02 00:39 :35 No .2ug/kg /h 0.2-1.5 mcg/kg/hr ?61 kg (3.05-22.8 75 mL/hr, rounded to 3.05-22.88 mL/hr), IV Infusion, TITRATE, Sedation-R ASS score (0 to -1), Starting on Lyndon 08/31/22 at 0833
In itiate infusion at 0.2 mcg/kg/hr and titrate by 0.1 mcg/kg/hr every 30 minutes to goal sedation score. Maximum dose = 1.5 mcg/kg/hr. If goal not maintained at maximum allowed dose, contact prescriber .
General acute hospital fentaNYL PF (SUBLIMAZE) STD 2,500 mcg in NaCl 0.9% (NS) 250 mL infusion RTU 2021-09 08:03: 47 09-01 11:18 :51 No 25ug/h 25-200 mcg/hr (2.5-20 mL/hr), IV Infusion, TITRATE, CPOT/Pain Scale Goals Determined by Provider, Starting on Lyndon 08/31/22 at 0203
In itiate infusion at 25 mcg/hr. Titrate by 25 mcg/hr every 1 minute to 15 minutes to identified goal pain and/or sedation scores. Maximum dose = 200 mcg/hr. If goal not maintained at maximum allowed dose, contact prescriber .
General acute hospital FENTanyl PF (SUBLIMAZE (PF)) injection 50 mcg 2021-09 08:00: 00 08-31 07:14 :00 No 50ug 50 mcg, Slow IV Push, ONCE, 1 dose, On Lyndon 08/31/22 at 0200, Routine General acute hospital propofoL IV infusion 2021-09 07:24: 17 08-31 07:09 :53 No 5ug/kg/ min 5-50 mcg/kg/min ?61 kg (1.83-18.3 mL/hr), IV Infusion, TITRATE, Sedation-R ASS score (0 to -1), Starting on Lyndon 08/31/22 at 0124
In itiate infusion at 5 mcg/kg/min and titrate by 5 mcg/kg/min every 30 seconds to 10 minutes to goal sedation score. Maximum dose = 50 mcg/kg/min . If goal not maintained at maximum allowed dose, contact prescriber . &nbs p;Tubing and unused portions of vials should be discarded after 12 hours.
General acute hospital lactated ringers IV infusion 1,000 mL 2021-09 07:15: 00 08-31 07:00 :00 No 1000mL at 999 mL/hr, 1,000 mL, Intravenou s, ONCE, 1 dose, On Lyndon 08/31/22 at 0115, Routine General acute hospital midazolam (VERSED) STD 50mg in NaCl 0.9% (NS) 50 mL infusion RTU 2021-09 06:26: 10 08-31 16:14 :53 No 1mg/h 1-10 mg/hr (1-10 mL/hr), IV Infusion, TITRATE, Sedation-R ASS score (0 to -1), Starting on Lyndon 08/31/22 at 0026
In itiate infusion at 1 mg/hr and titrate by 1 mg/hr every 3 minutes to 10 minutes to goal sedation score. Maximum dose = 10 mg/hr.&nbs p; If goal not maintained at maximum allowed dose, contact prescriber .
General acute hospital gabapentin 300 mg/6 mL (6 mL) solution 2021-09 23:09: 11 08-30 00:00 :00 No Take by mouth 2 (two) times daily. prescribed at [facility] no summer 2018 General acute hospital PARoxetine 20 mg tablet 2021-09 00:00: 00 Yes 20mg Take 20 mg by mouth in the morning. General acute hospital LORazepam 1 mg tablet 2021-09 00:00: 00 Yes 1mg Take 1 mg by mouth in the morning. General acute hospital SERTraline 100 mg tablet 10-22 18:52: 12 Yes 100mg Take 100 mg by mouth daily. Prescribed by [facility] - Apr 2019 General acute hospital olanzapine (ZYPREXA ORAL) 10-22 18:52: 09 Yes Take by mouth 2 (two) times daily. Prescribed by [facility] - Apr 2019 General acute hospital gabapentin 300 mg/6 mL (6 mL) solution 10-22 18:52: 07 Yes Take by mouth 2 (two) times daily. prescribed at [facility] no summer 2018 General acute hospital OXcarbazepi ne (TRILEPTAL) 600 mg tablet 10-22 18:52: 06 Yes 600mg Take 600 mg by mouth 2 (two) times daily. General acute hospital Sertraline HCl - 50 MG Oral Tablet [...] (1) TABLET(S) BY MOUTH TWICE A DAY. [facility] busPIRone 15 mg tablet 03-03 00:00: 00 Yes [id number] 15mg Take 1 tablet by mouth 2 (two) times daily. General acute hospital DULoxetine 60 mg capsule 03-01 00:00: 00 Yes [id number] 60mg Take 1 capsule by mouth daily. General acute hospital DULoxetine 30 mg capsule 03-01 00:00: 00 Yes [id number] 30mg Take 1 capsule by mouth daily. General acute hospital OXcarbazepi ne (TRILEPTAL) 600 mg tablet 02-23 19:48: 44 Yes 600mg Take 600 mg by mouth 2 (two) times daily. General acute hospital traZODONE 50 mg tablet 02-23 00:00: 00 Yes [id number] 25mg Take 0.5 tablets by mouth 2 (two) times daily. General acute hospital Multi-Vitam in TABS Multi-Vitam in TABS Yes M.A. [facility] Immunizations Ordered Immunization Name Filled [...] Completed [facility] TDAP 2014-05-25 00:00:00 Completed [facility] Meningococcal Polysaccharide (groups A, C, Y and W-135) conjugate vaccine (MCV4P) 2014-05-25 00:00:00 Completed [facility] HPV 2014-05-25 00:00:00 Completed [facility] TDAP 2014-05-25 00:00:00 Completed [facility] Meningococcal Polysaccharide (groups A, C, Y and W-135) conjugate vaccine (MCV4P) 2014-05-25 00:00:00 Completed [facility] HPV 2014-05-25 00:00:00 Completed [facility] TDAP 2014-05-25 00:00:00 Completed [facility] Meningococcal Polysaccharide (groups A, C, Y and W-135) conjugate vaccine (MCV4P) 2014-05-25 00:00:00 Completed [facility] HPV 2014-05-25 00:00:00 Completed [facility] TDAP 2014-05-25 00:00:00 Completed [facility] Meningococcal Polysaccharide (groups A, C, Y and W-135) conjugate vaccine (MCV4P) 2014-05-25 00:00:00 Completed [facility] HPV 2014-05-25 00:00:00 Completed [facility] TDAP 2014-05-25 00:00:00 Completed [facility] Meningococcal Polysaccharide (groups A, C, Y and W-135) conjugate vaccine (MCV4P) 2014-05-25 00:00:00 Completed [facility] Tdap 2014-05-25 00:00:00 Completed [facility] HPV 2014-05-25 00:00:00 Completed [facility] Meningococcal Polysaccharide (groups A, C, Y and W-135) conjugate vaccine (MCV4P) 2014-05-25 00:00:00 Completed [facility] HPV 2014-05-25 00:00:00 Completed [facility] TDAP 2014-05-25 00:00:00 Completed [facility] Meningococcal Polysaccharide (groups A, C, Y and W-135) conjugate vaccine (MCV4P) 2014-05-25 00:00:00 Completed [facility] HPV 2014-05-25 00:00:00 Completed [facility] TDAP 2014-05-25 00:00:00 Completed [facility] Meningococcal Polysaccharide (groups A, C, Y and W-135) conjugate vaccine (MCV4P) 2014-05-25 00:00:00 Completed [facility] HPV 2014-05-25 00:00:00 Completed [facility] TDAP 2014-05-25 00:00:00 Completed [facility] Meningococcal Polysaccharide (groups A, C, Y and W-135) conjugate vaccine (MCV4P) 2014-05-25 00:00:00 Completed [facility] HPV 2014-05-25 00:00:00 Completed [facility] TDAP 2014-05-25 00:00:00 Completed [facility] Meningococcal Polysaccharide (groups A, C, Y and W-135) conjugate vaccine (MCV4P) 2014-05-25 00:00:00 Completed [facility] HPV 2014-05-25 00:00:00 Completed [facility] TDAP 2014-05-25 00:00:00 Completed [facility] Meningococcal Polysaccharide (groups A, C, Y and W-135) conjugate vaccine (MCV4P) 2014-05-25 00:00:00 Completed [facility] HPV 2014-05-25 00:00:00 Completed [facility] Tdap 2014-05-25 00:00:00 Completed [facility] TDAP 2014-05-25 00:00:00 Completed [facility] Meningococcal Polysaccharide (groups A, C, Y and W-135) conjugate vaccine (MCV4P) 2014-05-25 00:00:00 Completed [facility] HPV 2014-05-25 00:00:00 Completed [facility] Meningococcal Polysaccharide (groups A, C, Y and W-135) conjugate vaccine (MCV4P) 2014-05-25 00:00:00 Completed [facility] HPV 2014-05-25 00:00:00 Completed [facility] TDAP 2014-05-25 00:00:00 Completed [facility] Meningococcal Polysaccharide (groups A, C, Y and W-135) conjugate vaccine (MCV4P) 2014-05-25 00:00:00 Completed [facility] HPV 2014-05-25 00:00:00 Completed [facility] TDAP 2014-05-25 00:00:00 Completed [facility] Meningococcal Polysaccharide (groups A, C, Y and W-135) conjugate vaccine (MCV4P) 2014-05-25 00:00:00 Completed [facility] HPV 2014-05-25 00:00:00 Completed [facility] TDAP 2014-05-25 00:00:00 Completed [facility] Meningococcal Polysaccharide (groups A, C, Y and W-135) conjugate vaccine (MCV4P) 2014-05-25 00:00:00 Completed [facility] HPV 2014-05-25 00:00:00 Completed [facility] TDAP 2014-05-25 00:00:00 Completed [facility] Meningococcal Polysaccharide (groups A, C, Y and W-135) conjugate vaccine (MCV4P) 2014-05-25 00:00:00 Completed HPV 2014-05-25 00:00:00 Completed TDAP 2014-05-25 00:00:00 Completed [facility] Meningococcal Polysaccharide (groups A, C, Y and W-135) conjugate vaccine (MCV4P) 2014-05-25 00:00:00 Completed [facility] HPV 2014-05-25 00:00:00 Completed [facility] influenza virus vaccine, unspecified formulation 2009-08-09 00:00:00 Completed [facility] H1n1 Vaccine 2009-08-09 00:00:00 Completed [facility] Influenza Virus Vaccine 2009-08-09 00:00:00 Completed [facility] H1n1 Vaccine 2009-08-09 00:00:00 Completed [facility] Influenza Virus Vaccine 2009-08-09 00:00:00 Completed [facility] H1n1 Vaccine 2009-08-09 00:00:00 Completed [facility] Influenza Virus Vaccine 2009-08-09 00:00:00 Completed [facility] H1n1 Vaccine 2009-08-09 00:00:00 Completed [facility] Influenza Virus Vaccine 2009-08-09 00:00:00 Completed [facility] H1n1 Vaccine 2009-08-09 00:00:00 Completed [facility] Influenza Virus Vaccine 2009-08-09 00:00:00 Completed [facility] H1n1 Vaccine 2009-08-09 00:00:00 Completed [facility] Influenza Virus Vaccine 2009-08-09 00:00:00 Completed [facility] H1n1 Vaccine 2009-08-09 00:00:00 Completed [facility] Influenza Virus Vaccine 2009-08-09 00:00:00 Completed [facility] H1n1 Vaccine 2009-08-09 00:00:00 Completed [facility] Influenza Virus Vaccine 2009-08-09 00:00:00 Completed [facility] H1n1 Vaccine 2009-08-09 00:00:00 Completed [facility] Influenza Virus Vaccine 2009-08-09 00:00:00 Completed [facility] H1n1 Vaccine 2009-08-09 00:00:00 Completed [facility] Influenza Virus Vaccine 2009-08-09 00:00:00 Completed [facility] H1n1 Vaccine 2009-08-09 00:00:00 Completed [facility] Influenza Virus Vaccine 2009-08-09 00:00:00 Completed [facility] H1n1 Vaccine 2009-08-09 00:00:00 Completed [facility] Influenza Virus Vaccine 2009-08-09 00:00:00 Completed [facility] H1n1 Vaccine 2009-08-09 00:00:00 Completed [facility] Influenza Virus Vaccine 2009-08-09 00:00:00 Completed [facility] H1n1 Vaccine 2009-08-09 00:00:00 Completed [facility] Influenza Virus Vaccine 2009-08-09 00:00:00 Completed [facility] H1n1 Vaccine 2009-08-09 00:00:00 Completed [facility] Influenza Virus Vaccine 2009-08-09 00:00:00 Completed [facility] H1n1 Vaccine 2009-08-09 00:00:00 Completed [facility] Influenza Virus Vaccine 2009-08-09 00:00:00 Completed [facility] H1n1 Vaccine 2009-08-09 00:00:00 Completed Influenza Virus Vaccine 2009-08-09 00:00:00 Completed H1n1 Vaccine 2009-08-09 00:00:00 Completed [facility] Influenza Virus Vaccine 2009-08-09 00:00:00 Completed [facility] influenza virus vaccine, unspecified formulation 2009-07-04 00:00:00 Completed [facility] Influenza Virus Vaccine 2009-07-04 00:00:00 Completed [facility] Influenza Virus Vaccine 2009-07-04 00:00:00 Completed [facility] Influenza Virus Vaccine 2009-07-04 00:00:00 Completed [facility] Influenza Virus Vaccine 2009-07-04 00:00:00 Completed [facility] Influenza Virus Vaccine 2009-07-04 00:00:00 Completed [facility] Influenza Virus Vaccine 2009-07-04 00:00:00 Completed [facility] Influenza Virus Vaccine 2009-07-04 00:00:00 Completed [facility] Influenza Virus Vaccine 2009-07-04 00:00:00 Completed [facility] Influenza Virus Vaccine 2009-07-04 00:00:00 Completed [facility] Influenza Virus Vaccine 2009-07-04 00:00:00 Completed [facility] Influenza Virus Vaccine 2009-07-04 00:00:00 Completed [facility] Influenza Virus Vaccine 2009-07-04 00:00:00 Completed [facility] Influenza Virus Vaccine 2009-07-04 00:00:00 Completed [facility] Influenza Virus Vaccine 2009-07-04 00:00:00 Completed [facility] Influenza Virus Vaccine 2009-07-04 00:00:00 Completed [facility] Influenza Virus Vaccine 2009-07-04 00:00:00 Completed [facility] Influenza Virus Vaccine 2009-07-04 00:00:00 Completed [facility] Influenza Virus Vaccine 2009-07-04 00:00:00 Completed [facility] hepatitis A vaccine, pediatric/adolescent dosage, 2 dose [...] TRIVALENT MDV Unknown Completed Whitney Rahman External [id number] Unknown Completed Whitney turner - External Influenza Virus Vaccine Unknown Completed [facility] H1n1 Vaccine Unknown Completed [facility] acute hospital TDAP Unknown Completed [facility] Meningococcal Polysaccharide (groups A, C, Y and W-135) conjugate vaccine (MCV4P) Unknown Completed [facility] HPV Unknown Completed [facility] HEPATITIS A- PEDI/ADOL Unknown Completed Whitney Rahman External Hepatitis B, Adolescent Or Pediatric Unknown Completed Whitney Rahman External HIB- Haemophilus Influenzae Type B Unknown Completed Whitney turner - External HPV 4 (Human Papillomavirus) Unknown Completed Whitney john - External HPV 9 (Human Papillomavirus) Unknown Completed Whitney john - External Meningococcal Vaccine- Conjugate(Menactra) Unknown Completed Whitney matamorosbodora Rahman External MMR- Measles, Mumps, Rubella Unknown Completed Whitney Rahman External MMR/Varicella (ProQuad) Unknown Completed Whitney Rahman External Pneumococcal Vaccine, Conjugate 7 Unknown Completed Wihtney Rahman External IPV- Inactivated Polio Vaccine Unknown Completed Whitney Rahman External Tdap- (Boostrix, Adacel) Unknown Completed Whitney Rahman External Varicella Vaccine Unknown Completed Ray Gomes - External Vital Signs Vital Name Observation Time Observation Value Comments S ource Systolic blood pressure 2024-09-15 16:14:00 104 mm[Hg] Whitney Gomes - External Diastolic blood pressure 2024-09-15 16:14:00 64 mm[Hg] Whitney Gomes - External Heart rate 2024-09-15 16:14:00 83 [...] Systolic blood pressure 2024-07-29 19:40:00 116 mm[Hg] [facility] Diastolic blood pressure 2024-07-29 19:40:00 78 mm[Hg] [facility] Heart rate 2024-07-29 19:40:00 93 /min [facility] Respiratory rate 2024-07-29 19:40:00 16 /min [facility] Oxygen saturation in Arterial blood by Pulse oximetry 2024-07-29 19:40:00 98 /min [facility] Body temperature 2024-07-29 16:40:00 36.39 Jeana [facility] Body height 2024-07-29 16:40:00 172.7 cm [facility] Body weight 2024-07-29 16:40:00 49.896 kg [facility] BMI 2024-07-29 16:40:00 16.73 kg/m2 [facility] Systolic blood pressure 2024-06-07 03:00:00 73 mm[Hg] [facility] Diastolic blood pressure 2024-06-07 03:00:00 64 mm[Hg] [facility] Body temperature 2024-06-07 03:00:00 36.61 Jeana [facility] Respiratory rate 2024-06-07 03:00:00 25 /min [facility] Oxygen saturation in Arterial blood by Pulse oximetry 2024-06-07 03:00:00 98 /min [facility] Heart rate 2024-06-07 00:52:00 67 /min [facility] Body height 2024-06-07 00:52:00 172.7 cm [facility] Body weight 2024-06-07 00:52:00 51.256 kg [facility] BMI 2024-06-07 00:52:00 17.18 kg/m2 [facility] Systolic blood pressure 2024-06-02 15:36:00 116 mm[Hg] [...] Systolic blood pressure 2022-11-28 17:50:00 104 mm[Hg] [facility] Diastolic blood pressure 2022-11-28 17:50:00 52 mm[Hg] [facility] Heart rate 2022-11-28 17:50:00 106 /min [facility] Body height 2022-11-28 17:50:00 172.7 cm [facility] Body weight 2022-11-28 17:50:00 62.551 kg [facility] BMI 2022-11-28 17:50:00 20.97 kg/m2 [facility] Oxygen saturation in Arterial blood by Pulse oximetry 2022-11-28 17:50:00 93 /min [facility] Systolic blood pressure 2022-10-20 14:09:00 108 mm[Hg] [facility] Diastolic blood pressure 2022-10-20 14:09:00 65 mm[Hg] [facility] Heart rate 2022-10-20 14:09:00 95 /min [facility] Body temperature 2022-10-20 14:09:00 37.06 Jeana [facility] Body height 2022-10-20 14:09:00 172.7 cm [facility] Body weight 2022-10-20 14:09:00 58.968 kg [facility] BMI 2022-10-20 14:09:00 19.77 kg/m2 [facility] Oxygen saturation in Arterial blood by Pulse oximetry 2022-10-20 14:09:00 98 /min [facility] Systolic blood pressure 2022-09-05 20:22:00 101 mm[Hg] [facility] Diastolic blood pressure 2022-09-05 20:22:00 64 mm[Hg] [facility] Heart rate 2022-09-05 20:22:00 62 /min [facility] Body temperature 2022-09-05 20:22:00 36.33 Jeana [facility] Body height 2022-09-05 20:22:00 172.7 cm [facility] Body weight 2022-09-05 20:22:00 56.337 kg [facility] BMI 2022-09-05 20:22:00 18.88 kg/m2 [facility] Oxygen saturation in Arterial blood by Pulse oximetry 2022-09-05 20:22:00 97 /min [facility] Systolic blood pressure 2022-09-03 05:40:00 110 mm[Hg] [facility] Diastolic blood pressure 2022-09-03 05:40:00 81 mm[Hg] [facility] Heart rate 2022-09-03 05:40:00 64 /min [facility] Body temperature 2022-09-03 05:40:00 37.22 Jeana [facility] Respiratory rate 2022-09-03 05:40:00 18 /min [facility] Body height 2022-09-03 05:40:00 172.7 cm [facility] Body weight 2022-09-03 05:40:00 57.153 kg [facility] BMI 2022-09-03 05:40:00 19.16 kg/m2 [facility] Oxygen saturation in Arterial blood by Pulse oximetry 2022-09-03 05:40:00 100 /min [facility] Systolic blood pressure 2022-09-02 17:17:00 114 mm[Hg] [facility] Diastolic blood pressure 2022-09-02 17:17:00 75 mm[Hg] [facility] Heart rate 2022-09-02 17:17:00 81 /min [facility] Body temperature 2022-09-02 17:17:00 36.61 Jeana [facility] Respiratory rate 2022-09-02 17:17:00 18 /min [facility] Oxygen saturation in Arterial blood by Pulse oximetry 2022-09-02 17:17:00 99 /min [facility] Body weight 2022-09-01 19:40:00 61 kg [facility] BMI 2022-09-01 19:40:00 20.45 kg/m2 [facility] Body height 2022-09-01 19:36:00 172.7 cm [facility] BP Systolic 2019-10-20 12:54:00 118 mm[Hg] Location: [...] Rate 2019-02-24 10:04:00 18 /min Quality: Normal [facility] O2 SAT 2019-02-24 10:04:00 100 % [...] [facility] Temperature 2019-02-07 10:53:00 98 [degF] [facility] Procedures Procedure Date / Time Performed Performing Clinician Source XR SHOULDER 2+ VW LEFT 2024-07-29 17:33:31 Donta Deluna [facility] CREATINE KINASE 2024-06-07 01:23:00 Trinidad Estraad [facility] MAGNESIUM 2024-06-07 01:23:00 Trinidad Estrada [facility] COMP. METABOLIC PANEL ([id number]) 2024-06-07 01:23:00 Trinidad Estrada [facility] CBC WITH DIFF 2024-06-07 01:23:00 [facility]24-06-07 01:23:00 Trinidad Estrada [facility] URINE DRUG (IMMUNOASSAY) - COMPREHENSIVE DRUG SCREEN W/O REFLEX 2024-06-07 01:23:00 Trinidad Estrada [facility] PATIENT FINANCIAL POLICY 2022-11-28 17:49:34 Doctor Unassigned, Mccune [facility] EXTERNAL PROVIDER RECORDS 2022-11-19 06:01:00 Doctor Unassigned, Mccune [facility] DEXA AXIAL (HIP AND SPINE) 2022-09-17 19:58:00 Kenya Fuentes [facility] EXTERNAL PROVIDER RECORDS 2022-09-16 06:01:00 Doctor Unassigned, Mccune [facility] ASSIGNMENT OF BENEFITS 2022-09-05 19:47:49 Docto r Unassigned, Mccune [facility] COMP. METABOLIC PANEL ([id number]) 2022-09-01 10:44:00 [facility] CBC WITH DIFF 2022-09-01 10:44:00 Nati Mitchell [facility] XR CHEST 1 VW 2022-09-01 10:15:00 [facility] CREATINE KINASE 2022-08-31 09:35:00 Dolly Beasley [facility] MAGNESIUM 2022-08-31 09:35:00 Jael Coppola [facility] TROPONIN I 2022-08-31 09:35:00 Jael Coppola [facility] COMP. METABOLIC PANEL ([id number]) 2022-08-31 09:35:00 Jael Coppola [facility] SALICYLATE 2022-08-31 09:35:00 Jael Coppola [facility] ETHANOL 2022-08-31 09:35:00 Jael Coppola [facility] CBC WITH DIFF 2022-08-31 09:35:00 Jael Coppola [facility] URINE DRUG (IMMUNOASSAY) - COMPREHENSIVE DRUG SCREEN 2022-08-31 09:07:00 Jael Coppola [facility] URINE DRUG (LCMSMS) - COMPREHENSIVE DRUG PANEL 2022-08-31 09:07:00 Jael Coppola [facility] AC PANEL 20 + LACTIC ACID 2022-08-31 09:01:00 Jael Coppola [facility] XR CHEST 1 VW 2022-08-31 05:44:00 Jael Coppola [facility] XR KUB 2022-08-31 05:44:00 Jael Coppola [facility] AUTHORIZATION FOR RELEASE OF PHI 2020-08-21 06:01:00 Doctor Unassigned, Mccune [facility] [[facility]] CBC (INCLUDES DIFF/PLT) 2019-10-20 00:00:00 [facility]] CMP W/EGFR 2019-10-20 00:00:00 [facility]] LIPID PANEL 2019-10-20 00:00:00 [facility] [QL] TSH, 3RD GENERATION 2019-10-20 00:00:00 [facility] [Q] DRUG SCREEN,COMPREHENSIVE (URINE) 2019-07-20 00:00:00 [facility] [Q] DRUG SCREEN,COMPREHENSIVE (URINE) 2019-02-24 00:00:00 [facility] Encounters Start Date/Time End Date/Time Encounter Type Admission Type Attending [facility] Facility Care Department Encounter ID Source 2024-11-28 00:00:00 2024-11-28 00:00:00 Outpatient BATES, ROGERS LAIRD [id number] [facility] 2024-09-22 16:00:00 2024-09-22 16:00:00 Outpatient DELMI GRANT [id number] [facility] 2024-09-22 09:30:00 2024-09-22 09:30:00 Outpatient LABSanjay LAIRD [id number] [facility] 2024-09-22 00:00:00 2024-09-22 00:00:00 Outpatient BATES, ROGERS LAIRD [id number] [facility] 2024-09-22 00:00:00 2024-09-22 00:00:00 Outpatient BATESROGERS CARREON [id number] [facility] 2024-09-22 00:00:00 2024-09-22 00:00:00 Outpatient BATES, ROGERS LAIRD [id number] [facility] 2024-09-16 00:00:00 2024-09-16 00:00:00 Out[facility]ATES[facility] [id number] [facility] 2024-09-16 00:00:00 2024-09-16 00:00:00 Outpatient BATES, ROGERS LAIRD [id number] [facility] 2024-09-15 11:05:00 2024-09-15 11:05:00 Outpatient LAB90 WHITNEY LAIRD [id number] [facility] 2024-09-15 10:00:00 2024-09-15 10:00:00 Outpatient ROGERS BATES WHITNEY [id number] [facility] 2024-09-15 00:00:00 2024-09-15 00:00:00 Outpatient ALEJANDRA WESLEY [facility] [id number] [facility] 2024-08-24 00:00:00 2024-08-24 00:00:00 Outpatient NICK GAINES [facility] [id number] [facility] 2024-07-29 11:41:00 2024-07-29 15:18:00 Emergency X DONTA DELUNA [facility] [id number] General acute hospital 2024-07-29 11:41:00 2024-07-29 15:18:00 Emergency Donta Deluna [facility] 1.2.840.114 350.1.13.10 4.2.7.2.686 [id number] [facility] acute hospital 2024-06-09 09:30:00 2024-06-09 09:30:00 Outpatient ADENVERNON SALGADO [id number] [facility] 2024-06-08 00:00:00 2024-06-08 00:00:00 Outpatient VERNON SAMANIEGO [id number] [facility] 2024-06-07 00:00:00 2024-06-07 00:00:00 Outpatient IHSAN CHEN [id number] [facility] 2024-06-06 20:03:00 2024-06-06 22:17:00 Emergency X TRINIDAD ESTRADA [facility] ERT [id number] General acute hospital 2024-06-06 20:03:00 2024-06-06 22:17:00 Emergency Trinidad Estrada [facility] .840.114 350.1.13.10 4.2.7.2.686 [id number] General acute hospital 2024-06-02 11:20:00 2024-06-02 11:20:00 Outpatient ILEANA LAIRD [id number] [facility] 2024-06-02 10:30:00 2024-06-02 10:30:00 Outpatient IHSAN CHEN [facility] [id number] [facility] 2024-05-18 15:15:00 2024-05-18 15:15:00 Outpatient ALLEN CANNON [facility] LAIRD [id number] [facility] 2024-05-18 15:15:00 2024-05-18 15:15:00 Outpatient ALLEN CANNON [facility] LA[facility] [id number] [facility] 2023-04-24 11:00:00 2023-04-24 11:00:00 Outpatient DONTA CUEVAS [facility] [id number] General acute hospital 2022-12-30 00:00:00 2022-12-30 00:00:00 Telephone Donta Haynes [facility] 1.2.840.114 350.1.13.10 4.2.7.2.686 [id number] General acute hospital 2022-12-03 14:00:00 2022-12-03 14:00:00 Outpatient KENYA CHOUDHARY [facility] [id number] General acute hospital 2022-12-02 00:00:00 2022-12-02 00:00:00 Telephone [facility] 1.2.840.114 350.1.13.10 4.2.7.2.686 [id number] General acute hospital 2022-11-28 12:00:00 2022-11-28 13:03:08 Outpatient DONTA CUEVAS [facility] [id number] General acute hospital 2022-11-28 12:00:00 2022-11-28 13:03:08 Office Visit Donta Haynes [facility] 1.2.840.114 350.1.13.10 4.2.7.2.686 [id number] General acute hospital 2022-11-28 00:00:00 2022-11-28 00:00:00 Orders Only Doctor Unassigned, Mccune [facility] 1.284.114 350.1.13.10 4.2.7.2.686 [id number] General acute hospital 2022-11-19 00:00:00 2022-11-19 00:00:00 Orders Only Doctor Unassigned, Mccune [facility] 1.2840.114 350.1.13.10 4.2.7.2.686 [id number] General acute hospital 2022-10-20 08:00:00 2022-10-20 08:45:36 Outpatient R KENYA FUENTES [facility] [id number] General acute hospital 2022-10-20 08:00:00 2022-10-20 08:45:36 Office Visit Alfredo Kenya [facility] 1.840.114 350.1.13.10 4.2.7.2.686 [id number] General acute hospital 2022-09-23 00:00:00 2022-09-23 00:00:00 Telephone Alfredo Kenya [facility] 1.2.840.114 350.1.13.10 4.2.7.2.686 [id number] General acute hospital 2022-09-17 13:39:39 2022-09-17 23:59:00 Outpatient R KENYA FUENTES [facility] [id number] General acute hospital 2022-09-17 13:39:39 2022-09-17 23:59:00 Hospital Encounter Kenya Fuentes [facility] 1.840.114 350.1.13.10 4.2.7.2.686 [id number] General acute hospital 2022-09-16 00:00:00 2022-09-16 00:00:00 Orders Only Doctor Unassigned, Mccune [facility] 1.2840.114 350.1.13.10 4.2.7.2.686 [id number] General acute hospital 2022-09-05 14:00:00 2022-09-05 14:51:04 Outpatient R ALFREDO KENYA [facility] [id number] General acute hospital 2022-09-05 14:00:00 2022-09-05 14:51:04 Office Visit Kenya Fuentes [facility] 1.2840.114 350.1.13.10 4.2.7.2.686 [id number] General acute hospital 2022-09-05 00:00:00 2022-09-05 00:00:00 Orders Only Doctor Unassigned, Mccune [facility] 1.2840.114 350.1.13.10 4.2.7.2.686 [id number] General acute hospital 2022-09-03 00:00:00 2022-09-03 00:00:00 Transition of Care Marilu Steiner 1.2840.114 350.1.13.10 4.2.7.2.686 [id number] General acute hospital 2022-09-02 23:43:00 2022-09-02 23:56:00 Emergency X TRINIDAD ESTRADA [facility] E[facility] [id number] General acute hospital 2022-09-02 23:43:00 2022-09-02 23:56:00 Emergency Trinidad Estrada [facility] 1.0.114 350.1.13.10 4.2.7.2.686 [id number] General acute hospital 2022-08-30 22:42:00 2022-09-02 15:34:00 Inpatient X MICHAEL ASHRAF [facility] [id number] General acute hospital 2022-08-30 22:42:00 2022-09-02 15:34:00 Hospital Encounter Luci Campbellbeny Yung, Ayaan Milagro Ashrafrick [facility] 1.2.840.114 350.1.13.10 4.2.7.2.686 [id number] General acute hospital 2020-08-21 00:00:00 2020-08-21 00:00:00 Orders Only Doctor Unassigned, Mccune [facility] 1.2.840.114 350.1.13.10 4.2.7.2.686 [id number] 2020-08-21 00:00:00 2020-08-21 00:00:00 Orders Only Doctor Unassigned, Mccune [facility] 1.2.840.114 350.1.13.10 4.2.7.2.686 [id number] General acute hospital 2019-12-08 13:05:19 2019-12-08 14:05:19 Office Visit Kim Patel [facility] 1.2.840.114 350.1.13.10 4.2.7.2.686 [id number] 2019-12-08 13:05:19 2019-12-08 14:05:19 Office Visit Kim Patel [facility] 1.2.840.114 350.1.13.10 4.2.7.2.686 [id number] General acute hospital 2019-12-08 13:15:00 2019-12-08 13:15:00 Outpatient R KIM PATEL [facility] [id number] General acute hospital 2019-10-20 13:00:00 2019-10-20 13:00:00 Appointmen t; JAZMYN ESPINAL M.D. MEMON, SABA, M.D. [facility] [id number] [facility] 2019-07-20 13:00:00 2019-07-20 13:00:00 Appointmen t; JAZMYN ESPINAL M.D. MEMON, SABA, M.D. [facility] Psych[facility] Outpatient [facility] - [facility] [id number] [facility] 2019-06-08 00:00:00 2019-06-08 00:00:00 Telephone Kim Patel [facility] 1.2.840.114 350.1.13.10 4.2.7.2.686 [id number] General acute hospital 2019-02-24 10:00:00 2019-02-24 10:00:00 Appointdena t; JAZMYN ESPINAL M.D. MEMON, SABA, M.D. [facility] [id number] [facility] 2019-02-07 10:20:00 2019-02-07 10:20:00 Appointmen t; CHANCE VAZQUEZ APRN WILLIAMSON, TIFFINY, APRN [facility] [id number] [facility] Results Test Description Test Time Test Comments Results Resul t Comments Source XR SHOULDER 2+ VW LEFT 2024-07-29 18:46:43 ORDERING PHYSICIAN: DONTA DELUNA HISTORY: ?pain TECHNIQUE:Three views of the left shoulder . Technical quality: Diagnostic. COMPARISON: None FINDINGS: There is no fracture or dislocation. ? ?[facility]able[id number][facility]2024-06-07 01:51:42* Test Item Value Reference Range Interpretation Comme nts NA (test code = 0217059331) 138 mmol/L 135-145 K (test code = 7655190733) 3.6 mmol/L 3.5-5.0 CL (test code = 1105492543) 101 mmol/L 98-108 CO2 TOTAL (test code = 6524534610) 26 mmol/L 23-31 AGAP (test code = 7500165788) 11 2-16 BUN (test code = 1832186739) 7 mg/dL 7-23 GLUCOSE (test code = 8443456610) 98 mg/dL 70-110 CREATININE (test code = 2160-0) 0.84 mg/dL 0.60-1.25 TOTAL BILI (test code = 5578488114) 1.4 mg/dL 0.1-1.1 H CALCIUM (test code = 8859252788) 9.4 mg/dL 8.6-10.6 T PROTEIN (test code = 6447010018) 7.3 g/dL 6.3-8.2 ALBUMIN (test code = 4938167169) 4.6 g/dL 3.5-5.0 ALK PHOS (test code = 6603826689) 109 U/L 34-122 ALTv (test code = 1742-6) 18 U/L 5-50 AST(SGOT) (test code = 4141347069) 23 U/L 13-40 eGFR (test code = 39356-3) 127.2 mL/min/1.73m2 CKD-EPI eGFR (2020). Assuming creatinine has been stable day-to-day for at least three months, the eGFR indicates Category G1 (>= 90 mL/min/1.73 m2) Lab Interpretation (test code = 23102-9) [facility]normal [id number] 01:51:22* Test Item Value Reference Range Interpretation Comme nts CK (test code = 8880780794) 195 U/L 33-194 H Lab Interpretation (test cod e = 84579-4) Abnormal [facility] [id number] 01:40:20* Test Item Value Reference Range Interpretation [...] 33.7 g/dL 31.2-35.0 RDW-SD (test code = 63007-0) 44.1 fL 38.5-51.6 RDW-CV (test code = 788-0) 13.2 % 12.1-15.4 PLT (test code = 777-3) 266 150-328 MPV (test code = 46912-1) 10.2 fL 9.8-13.0 NRBC/100 WBC (test code = 3759577165) 0.0 0.0-10.0 NRBC x10^3 (test code = [id number]) See_Comment [Automated message] The system which generated this result transmitted reference range: 10*3/?L. The reference range was not used to interpret this result as normal/abnormal. GRAN MAT (NEUT) % (test code = 770-8) 75.6 % IMM GRAN % (test code = [id number]) 0.40 % LYMPH % (test code = 736-9) 12.1 % MONO % (test code = 5905-5) 10.5 % EOS % (test code = 713-8) 0.9 % BASO % (test code = 706-2) 0.5 % GRAN MAT x10^3(ANC) (test code = 8194789684) 10.09 10*3/uL 1.99-6.95 H IMM GRAN x10^3 (test code = 3960002315) 0.06 10*3/uL 0.00-0.06 LYMPH x10^3 (test code = 731-0) 1.61 10*3/uL 1.09-3.23 MONO x10^3 (test code = 742-7) 1.40 10*3/uL 0.36-1.02 H EOS x10^3 (test code = 711-2) 0.12 10*3/uL 0.06-0.53 BASO x10^3 (test code = 704-7) 0.07 10*3/uL 0.01-0.09 Lab Interpretation (test code = 90136-2) [facility]65028[facility]01 11:26:16* Test Item Value Reference Range Interpretation Comme nts NA (test code = 3434129796) 138 mmol/L 135-145 K (test code = 7432770174) 3.5 mmol/L 3.5-5.0 Slight hemolysis CL (test code = 4555155418) 110 mmol/L 98-108 H CO2 TOTAL (test code = 8812228340) 26 mmol/L 23-31 AGAP (test code = 4733184137) 2-16 BUN (test code = 6062555668) 9 mg/dL 7-23 Slight hemolysis GLUCOSE (test code = 7212482883) 99 mg/dL 70-110 CREATININE (test code = 6500232368) 0.73 mg/dL 0.60-1.25 TOTAL BILI (test code = 0958173101) 0.9 mg/dL 0.1-1.1 CALCIUM (test code = 9291456225) 8.2 mg/dL 8.6-10.6 L T PROTEIN (test code = 2282159204) 5.5 g/dL 6.3-8.2 L ALBUMIN (test code = 3120343843) 3.3 g/dL 3.5-5.0 L ALK PHOS (test code = 4979419065) 75 U/L 34-122 Slight hemolysis ALTv (test code = 1742-6) 16 U/L 5-50 AST(SGOT) (test code = 8606760261) 30 U/L 13-40 Slight hemolysis eGFR (test code = 8696331676) mL/min/1.73m2 KACI (test code = KACI) Association [...] imaging tests). Lab Interpretation (test code = 24530-3) Abnormal [facility] WITH [id number] 11:03:17* Test Item Value Reference Range Interpretation Comme nts WBC (test code = 6690-2) See_Comment [Automated [employer]] The system which generated this result transmitted reference range: 4.20 - 10.70 10*3/?L. The reference range was not used to interpret this result as normal/abnormal. RBC (test code = 789-8) See_Comment L [Automated [employer]] The system which generated this result transmitted [...] g/dL 31.2-35.0 H RDW-SD (test code = 97802-1) 41.7 fL 38.5-51.6 RDW-CV (test code = 788-0) 13.2 % 12.1-15.4 PLT (test code = 777-3) See_Comment [Automated [employer]] The system which generated this result transmitted reference range: 150 - 328 10*3/?L. The reference range was not used to interpret this result as normal/abnormal. MPV (test code = 19950-5) 11.9 fL 9.8-13.0 NRBC/100 WBC (test code = 8511977951) See_Comment [Automated me ssage] The system which generated this result transmitted reference range: 0.0 - 10.0 /100 WBCs. The reference range was not used to interpret this result as normal/abnormal. NRBC x10^3 (test code = 2658219397) See_Comment [Automated messa ge] The system which generated this result transmitted reference range: 10*3/?L. The reference range was not used to interpret this result as normal/abnormal. GRAN MAT (NEUT) % (test code = 770-8) 62.3 % IMM GRAN % (test code = 9056281962) 0.20 % LYMPH % (test code = 736-9) 25.7 % MONO % (test code = 5905-5) 8.0 % EOS % (test code = 713-8) 3.4 % BASO % (test code = 706-2) 0.4 % GRAN MAT x10^3(ANC) (test code = 6639554763) 5.01 10*3/uL 1.99-6.95 IMM GRAN x10^3 (test code = 8161098616) 0.00-0.06 LYMPH x10^3 (test code = 731-0) 2.07 10*3/uL 1.09-3.23 MONO x10^3 (test code = 742-7) 0.64 10*3/uL 0.36-1.02 EOS x10^3 (test code = 711-2) 0.27 10*3/uL 0.06-0.53 BASO x10^3 (test code = 704-7) 0.03 10*3/uL 0.01-0.09 Lab Interpretation (test code = 58588-4) [facility]normal [id number] 17:58:42* Test Item Value Reference Range Interpretation Comme nts CK (test code = 9502955377) 180 U/L 33-194 Lab Interpretation (test cod e = 90825-2) Normal [facility]TROP[facility] [id number] 11:09:00* Test Item Value Reference Range Interpretation Comments TROPONIN I (test code = 3421785421) 0.001 ng/mL See_Comment [Automated message] The system [...] of biotin. Lab Interpretation (test code = 53293-3) Normal [facility]ALICYLATE2022-12-04 10:59:14 SALICYLATE<10mg/L111/01/2021 4:59 AM [facility] LABORATORY SERVICESTherapeutic Range: ? Analgesic and Antipyretic Use ? 20-100 mg/L ? ? Anti- Inflammatory Use ? 100-250 mg/LToxic Range: ? Greater than 300 mg/LUnCHRISTUS [facility]ohn Hospital – KlebergETHANOL2022-12-04 10:59:14ALCOHOL<10mg/dL08/31/2022 4:59 AM CSTUTMB LABORATORY SERVICESToxic Greater than or equal to 80 mg/dL. NOTE: Whole blood values are approximately 10% to 15% lower than serum and plasma.[facility] [id number] 10:59:09* Test Item Value Reference Range Interpretation Comme nts ACETAMINOP (test code = 6947473167) 10.0-30.0 L KACI (test code = KACI) Toxic: Greater mamie n 200 ug/mL @ 4 hour post ingestion or greater than 50 ug/mL @ 12 hour post ingestion Lab Interpretation (test code = 49373-6) Abnormal [facility]landMAGNESIUM2022-12-04 10:58:19* Test Item Value Reference Range Interpretation Comme nts MAGNESIUM (test code = 4735878601) 1.8 mg/dL 1.7-2.4 Lab Interpretation (test cod e = 64254-4) Normal [facility]landCOMP. METABOLIC PANEL (39255)2022-08-31 10:58:18* Test Item Value Reference Range Interpretation Comme nts NA (test code = 0379790303) 141 mmol/L 135-145 K (test code = 5007703750) 4.0 mmol/L 3.5-5.0 CL (test code = 6345394882) 110 mmol/L 98-108 H CO2 TOTAL (test code = 3063120098) 25 mmol/L 23-31 AGAP (test code = 2209673129) 2-16 BUN (test code = 0448044628) 5 mg/dL 7-23 L GLUCOSE (test code = 5853869686) 80 mg/dL 70-110 CREATININE (test code = 2500195475) 0.71 mg/dL 0.60-1.25 TOTAL BILI (test code = 0661180559) 0.5 mg/dL 0.1-1.1 CALCIUM (test code = 1667571863) 7.7 mg/dL 8.6-10.6 L T PROTEIN (test code = 0790263400) 5.2 g/dL 6.3-8.2 L ALBUMIN (test code = 8414810873) 3.3 g/dL 3.5-5.0 L ALK PHOS (test code = 5295188361) 71 U/L 34-122 ALTv (test code = 1742-6) 16 U/L 5-50 AST(SGOT) (test code = 8542405579) 23 U/L 13-40 eGFR (test code = 4024644679) mL/min/1.73m2 KACI (test code = KACI) Association [...] imaging tests). Lab Interpretation (test code = 69474-0) Abnormal [facility] WITH [id number] 09:52:32* Test Item Value Reference Range Interpretation [...] 33.8 g/dL 31.2-35.0 RDW-SD (test code = 51474-6) 41.1 fL 38.5-51.6 RDW-CV (test code = 788-0) 12.9 % 12.1-15.4 PLT (test code = 777-3) See_Comment [Automated message] The system which generated this result transmitted reference range: 150 - 328 10*3/?L. The reference range was not used to interpret this result as normal/abnormal. MPV (test code = 88473-7) 11.1 fL 9.8-13.0 NRBC/100 WBC (test code = 8075011482) See_Comment [Automated message] The system which generated this result transmitted reference range: 0.0 - 10.0 /100 WBCs. The reference range was not used to interpret this result as normal/abnormal. NRBC x10^3 (test code = 3530431437) See_Comment [Automated message] The system which generated this result transmitted reference range: 10*3/?L. The reference range was not used to interpret this result as normal/abnormal. GRAN MAT (NEUT) % (test code = 770-8) 90.1 % IMM GRAN % (test code = 6181111367) 0.40 % LYMPH % (test code = 736-9) 5.4 % MONO % (test code = 5905-5) 3.8 % EOS % (test code = 713-8) 0.1 % BASO % (test code = 706-2) 0.2 % GRAN MAT x10^3(ANC) (test code = 5610194552) 14.75 10*3/uL 1.99-6.95 H IMM GRAN x10^3 (test code = 6108662426) 0.06 10*3/uL 0.00-0.06 LYMPH x10^3 (test code = 731-0) 0.88 10*3/uL 1.09-3.23 L MONO x10^3 (test code = 742-7) 0.62 10*3/uL 0.36-1.02 EOS x10^3 (test code = 711-2) 0.06-0.53 L BASO x10^3 (test code = 704-7) 0.03 10*3/uL 0.01-0.09 Lab Interpretation (test code = 17915-4) Abnormal [facility] Panel 20 + Lactic [id number] 09:16:12* Test Item Value Reference Range Interpretation Comme nts PH (test code = 2) 7.35-7.45 PCO2 (test code = 8398281713) See_Comment [Automated messa ge] The system which generated this result transmitted reference range: 35 - 45 mmHg. The reference range was not used to interpret this result as normal/abnormal. PO2 (test code = 1906468658) See_Comment H [Automated messa ge] The system which generated this result transmitted reference range: 80 - 100 mmHg. The reference range was not used to interpret this result as normal/abnormal. HCO3 (test code = 1458558898) See_Comment L [Automated messa ge] The system which generated this result transmitted reference range: 22 - 26 mEq/L. The reference range was not used to interpret this result as normal/abnormal. BE (test code = 0689877178) See_Comment L [Automated messa ge] The system which generated this result transmitted reference range: -3.0 - 3.0 mEq/L. The reference range was not used to interpret this result as normal/abnormal. THB (test code = 5868184919) 13.2 g/dL 13.5-18.0 L %O2HB (test code = 6745363390) 98.8 % 94.0-99.0 %COHB ART (test code = 7534376757) 0.3 % 0.0-1.5 %METHB ART (test code = 3368278554) 0.2 % 0.4-1.5 L VOL%O2 ART (test code = 3278944856) 18.8 % 15.0-23.0 NA (test code = 4516602803) 139 mmol/L 135-145 K+ (test code = 9351406353) 3.9 mmol/L 3.5-5.0 AC CA IONZ (test code = 2710114147) 4.60 mg/dL 4.50-5.30 GLUCOSE (test code = 8009794017) 88 mg/dL 70-110 LACTIC ACID (test code = 7211252084) 1.04 mmol/L 0.50-2.20 Lab Interpretation (test code = 67914-8) Abnormal [facility][H] Drug Screen Urine (9 Drugs)2019-07-20 15:46:01* Test [...] Negative Urine Propoxyphene Screen (test code = 21242-6) Negative Negative Urine Drug Screen Note (test [...] 50 ng/mLMethadone 300 ng/mLUrine alcohol 20 mg/dL [facility][H] Drug Screen Urine (9 Drugs)2019-02-24 13:44:01* [...] Negative Urine Propoxyphene Screen (test code = 30060-2) Negative Negative Urine Drug Screen Note (test [...] 50 ng/mLMethadone 300 ng/mLUrine alcohol 20 mg/dL [facility] Notes Date/Time Note Provider Source 2024-09-15 10:29:47 Chief Complaint Patient presents with Establish Care No PCP within the past 3 years. Osteoporosis He was diagnosed with osteoporosis in 2019. No prior treatment. He hasn't seen a specialist in over a year. Neck Pain Neck pain, left side that radiates down left arm. Savannah Tariq MA II [facility] 2024-07-29 15:17:30 Pt given printed and verbal [...] with steady gait, in no apparent distress. [place] 2024-07-29 11:36:32 Pt arrived ambulatory with complaints of L shoulder pain x1 days after wrestling with friends. Pt has slowed speech, denies drug use. Mildred Valverde RN [place] 2024-06-06 22:16:43 Pt given printed and verbal [...] in no apparent distress, Chance Lynn RN [place] 2024-06-06 19:49:40 Pt arrives in wheelchair with [...] and be checked out. 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 METABOLIC PANEL (06925) - Abnormal NA 138 135 - 145 [...] Procedures CBC WITH DIFF COMP. METABOLIC PANEL (61514) Magnesium Creatine Kinase URINALYSIS URINE DRUG (IMMUNOASSAY) - COMPREHENSIVE DRUG SCREEN W/O REFLEX Orders Placed This Encounter Medications NaCl 0.9% (NS) bolus infusion 2,000 mL hydrOXYzine (ATARAX) tablet 25 mg First Provider Eval: ED Events Date/Time Event User Comments 06/06/241945 Medical Screening Begins TRINIDAD ESTRADA DO -- 06/06/241945 First Provider Evaluation TRINIDAD ESTRADA DO -- ED COURSE Diagnosis/Impression as of 06/06/242207 [...] [facility] psychiatrist Aldair/Suzanne Rahman Apr 2019 PAROXETINE 20 MG TABLET Take 20 mg by mouth in the morning. START taking Modified Medications as Prescribed No medications on file STOP taking these medications No medications on file Follow-up: Electronically signed by: Trinidad Estrada DO 06/06/248 [facility] 2024-06-02 10:37:28 Harpal Avila is a 23 year old male Chief Complaint Patient presents with Physical Fasting Thumb Pain Patient c/o hurt thumb x week says pain is radiating down to wrist and arm Charlene Sol CMA II [facility]
--- NOTE | 2024-12-24 14:46 | ER ---
Nurse's Notes [facility] Name: Chan Gale Age: 24 yrs Sex: Male : 2000 Arrival Date: 12/24/2024 Time: 14:15 Bed IW1 Private MD: Diagnosis: Anxiety disorder, unspecified Presentation: 12/24 14:28 Chief complaint: Patient states: ran out of medications and needs them refilled. pt cm10 denies any si or hi at this time. Coronavirus screen: Client denies travel out of the [place] in the last 14 days. Ebola Screen: Patient denies travel to an Ebola-affected area in the 21 days before illness onset. Initial Sepsis Screen: Does the patient meet any 2 criteria? HR > 90 bpm. Does the patient have a suspected source of infection? No. Patient's initial sepsis screen is negative. Risk Assessment: Do you want to hurt yourself or someone else? Patient reports no desire to harm self or others. Onset of symptoms was December 24, 2024. 14:28 Method Of Arrival: Ambulatory cm10 14:28 Acuity: SIRISHA 4 cm10 Triage Assessment: 14:32 General: Appears in no apparent distress. comfortable, Behavior is agitated. Pain: cm10 Denies pain. Neuro: No deficits noted. Level of Consciousness is awake, alert, obeys commands, Oriented to person, place, time, situation, Appropriate for age. Respiratory: No deficits noted. Airway is patent Respiratory effort is even, unlabored, Respiratory pattern is regular, symmetrical. Historical: - Allergies: 14:29 No Known Allergies; cm10 - Home Meds: 14:29 gabapentin oral [Active]; Zyprexa Oral [Active]; Guaifenesin Oral [Active]; Atarax Oral cm10 [Active]; - PMHx: 14:29 adhd; Anxiety; avoident restrictive food intact disorder; Bipolar disorder; Depression; cm10 drug abuse; - Immunization history:: Adult Immunizations unknown. - Infectious Disease History:: Denies. - Social history:: Smoking status: Patient reports the use of cigarette tobacco products, unknown amount. Screenin:57 [facility] ED Fall Risk Assessment (Adult) History of falling in the last 3 months, cm10 including since admission No falls in past 3 months (0 pts) Confusion or Disorientation No (0 pts) Intoxicated or Sedated No (0 pts) Impaired Gait No (0 pts) Mobility Assist Device Used No (0 pt) Altered Elimination No (0 pt) Score/Fall Risk Level 0 - 2 = Low Risk Oriented to surroundings, Maintained a safe environment, Hourly rounding (assess needs \T\ fall precautionary measures) done. Abuse screen: Denies threats or abuse. Denies injuries from another. Nutritional screening: No deficits noted. Tuberculosis screening: No symptoms or risk factors identified. Vital Signs: 14:28 BP 121 / 93; Pulse 107; Resp 18; Temp 97.5(IR); Pulse Ox 95% on R/A; Weight 56.7 kg; cm10 Height 5 ft. 9 in. ; 14:28 Body Mass Index 18.46 (56.70 kg, 175.26 cm) cm10 ED Course: 14:16 Patient arrived in ED. mr 14:16 Jeffrey Garibay [facility]-C [facility] 14:16 Tenisha Castillo MD is Attending Physician. dr5 14:29 Triage completed. cm10 14:32 Arm band placed on right wrist. Patient placed in waiting room. cm10 14:57 Patient has correct armband on for positive identification. Provided Education on: cm10 follow-up instructions. 14:58 No provider procedures requiring assistance completed. Patient did not have IV access cm10 during this emergency room visit. Administered Medications: No medications were administered Medication: 14:57 VIS not applicable for this client. cm10 Outcome: 14:46 Discharge ordered by MD. dr5 14:58 Discharged to home ambulatory, cm10 14:58 Condition: good 14:58 Discharge instructions given to patient, Instructed on discharge instructions, follow up and referral plans. [employer] Demonstrated understanding of instructions, follow-up care, 14:58 Patient left the ED. cm10 Signatures: Charlene Fall, Reg Reg Sangeetha Mason, RN RN cm10 Jeffrey Garibay FNP-C CONTRACTING EXECUTIVE-Cdr5
--- NOTE | 2024-12-24 14:46 | EDPHYS ---
Physician Documentation [facility] Name: Chan Gale Age: 24 yrs Sex: Male : 2000 Arrival Date: 12/24/2024 Time: 14:15 Bed IW1 Private MD: ED Physician Tenisha Castillo HPI: 12/24 17:04 This 24 yrs old Male presents to ER via Ambulatory with complaints of Panick dr5 Attack. 17:04 Onset: The symptoms/episode began/occurred acutely. Patient is a 24-year-old male with dr5 history of ADHD, anxiety, bipolar disorder, depression coming in with feeling of anxiety for the past month. Patient reports that he has prescriptions at [facility] for psych medications that he is not able to afford. Patient is requesting assistance. Patient denies any panic attack at this time. Patient also denies audio or video hallucinations, denies suicidal or homicidal ideation.. Historical: - Allergies: 14:29 No Known Allergies; cm10 - Home Meds: 14:29 gabapentin oral [Active]; Zyprexa Oral [Active]; Guaifenesin Oral [Active]; Atarax Oral cm10 [Active]; - PMHx: 14:29 adhd; Anxiety; avoident restrictive food intact disorder; Bipolar disorder; Depression; cm10 drug abuse; - Immunization history:: Adult Immunizations unknown. - Infectious Disease History:: Denies. - Social history:: Smoking status: Patient reports the use of cigarette tobacco products, unknown amount. ROS: 17:04 Constitutional: as per hpi dr5 Exam: 17:04 Constitutional: This is a well developed, well nourished patient who is awake, alert, dr5 and in no acute distress. Head/Face: Normocephalic, atraumatic. Eyes: Pupils equal round and reactive to light, extra-ocular motions intact. Lids and lashes normal. Conjunctiva and sclera are non-icteric and not injected. Cornea within normal limits. Periorbital areas with no swelling, redness, or edema. Neck: Trachea midline, no thyromegaly or masses palpated, and no cervical lymphadenopathy. Supple, full range of motion without nuchal rigidity, or vertebral point tenderness. No Meningismus. Chest/axilla: Normal chest wall appearance and motion. Nontender with no deformity. No lesions are appreciated. Cardiovascular: Regular rate and rhythm with a normal S1 and S2. Normal PMI, no JVD. No pulse deficits. Respiratory: Lungs have equal breath sounds bilaterally, clear to auscultation. No rales, rhonchi or wheezes noted. No increased work of breathing, no retractions or nasal flaring. Back: No spinal tenderness. No costovertebral tenderness. Full range of motion. Skin: Warm, dry with normal turgor. Normal color with no rashes, no lesions, and no evidence of cellulitis. MS/ Extremity: Pulses equal, no cyanosis. Neurovascular intact. Full, normal range of motion. Neuro: Awake and alert, GCS 15, oriented to person, place, time, and situation. Cranial nerves II-XII grossly intact. Motor strength 5/5 in all extremities. Sensory grossly intact. Cerebellar exam normal. Normal gait. Psych: Awake, alert, with orientation to person, place and time. Behavior, mood, and affect are within normal limits. Vital Signs: 14:28 BP 121 / 93; Pulse 107; Resp 18; Temp 97.5(IR); Pulse Ox 95% on R/A; Weight 56.7 kg; cm10 Height 5 ft. 9 in. ; 14:28 Body Mass Index 18.46 (56.70 kg, 175.26 cm) cm10 MDM: 14:22 Medical Screening Exam initiated dr5 17:04 Differential diagnosis: viral Infection, Anxiety, Depression, Bipolar. Data reviewed: dr5 vital signs, nurses notes. Care significantly affected by the following chronic conditions: Anxiety, Depression, BPD. Care significantly affected by the following Social Determinants of Health: Poor access to healthcare and/or lack of insurance, Poor access to transportation, Problems related to employment. Counseling: I had a detailed discussion with the patient and/or guardian regarding the historical points, exam findings, and any diagnostic results supporting the discharge/admit diagnosis, the presence of at least one elevated blood pressure reading (>120/80) during this emergency department visit, the need for outpatient follow up, for definitive care, a family practitioner, a psychiatrist, to return to the emergency department if symptoms worsen or persist or if there are any questions or concerns that arise at home. ED course: Patient encouraged to follow-up with her psychiatrist. I gave patient community resources to reach out to for help. Patient is agreeable to plan and will follow-up with psychiatrist and primary care doctor this week. All questions answered. Strict ER precautions given. No sign of distress at this time. Administered Medications: No medications were administered Disposition Summary: 12/24/24 14:46 Discharge Ordered Notes: Location: Home dr5 Condition: Stable dr5 Diagnosis - Anxiety disorder, unspecified dr5 Followup: dr5 - With: Emergency Department - When: As needed - Reason: Worsening of condition Followup: dr5 - With: Private Physician - When: 1 - 2 days - Reason: Recheck today's complaints, Continuance of care, Re-evaluation by your physician Discharge Instructions: - Discharge Summary Sheet dr5 - Managing Anxiety, Adult dr5 Forms: - Medication Reconciliation Form dr5 - Patient Portal Instructions dr5 - Leadership Thank You Letter dr5 Signatures: Sangeetha Cordova RN RN cm10 Jeffrey Garibay, [place]DER-Cdr5
[2024-12-24 15:04] VITALS: BP 121/93; TEMP 97.5; O2SAT 95
== END 2024-12-24 14:58 | disposition home or self-care (01) ==
LOC: ER 14:15
DX: F41.9 Anxiety disorder, unspecified (principal); Z72.0 Tobacco use
CPT/HCPCS: 99282